=== PATIENT | male | born 1970 | race Caucasian/White ===

== ENCOUNTER 2025-01-17 06:54 | Emergency (ER) | payer MEDICARE, MEDICAID, SELFPAY ==
[2025-01-17 06:56] VITALS: BP 141/32; PULSE 84; RESP 16; TEMP 36.4; O2SAT 98; BMI 22.3
--- NOTE | 2025-01-17 07:05 | RAD_ITS ---
PROCEDURE: ABDOMEN SINGLE VIEW (PORTABLE) 01/17/2025 REASON FOR EXAM: PEG TUB EVAL TECHNIQUE: ABDOMEN SINGLE VIEW (PORTABLE) COMPARISON: None. FINDINGS: Percutaneous gastrostomy tube is in good position with its tip at the level of the gastric body. Contrast was injected through the tube outlining normal gastric rugae without evidence of contrast leakage. Normal visualized lung bases. There is an unremarkable bowel gas pattern. There is no demonstrated free abdominal air. Normal visualized liver. Normal visualized spleen. Normal visualized kidneys. The soft tissue structures of the pelvis are unremarkable. Moderate diffuse spondylosis. RAD/Abdomen Single View (Portable) IMPRESSION: Percutaneous gastrostomy tube is in good position. Reading Location: [facility]
--- NOTE | 2025-01-17 07:09 | EX.ED.DYSGE1 ---
HPI History of Present Illness Chief Complaint: Other, Pain/Inj Narrative Narrative: Patient nonverbal. Sent in for evaluation of PEG tube. Reported patient tugged on the tube there was bleeding. Unclear exactly when this was placed as there is no current records. [facility] Medical History (Updated 01/17/25 @ 07:[address] Elías Hernández DO) Aphasia Constipation Cerebral palsy Hyperactivity Seizure PEG tube malfunction Nonverbal Home Medications ?Medication ?Instructions ?Recorded ?Last Taken ?Type lactose-reduced food-fiber 0.07 250 ml feeding tube 5X/DAY 01/17/25 Unknown History gram-1.5 kcal/mL liquid for tube feed (Isosource 1.5 Kenneth) lactulose 10 gram/15 mL oral 15 ml feeding tube BID 01/17/25 Unknown History solution (Constulose) loratadine 10 mg tablet 10 mg feeding tube DAILY 01/17/25 Unknown History (Allerclear) mirtazapine 15 mg tablet 15 mg feeding tube QHS 01/17/25 Unknown History pantoprazole 40 mg granules 40 mg feeding tube BID 01/17/25 Unknown History delayed-release for susp in packet (Protonix) polyethylene glycol 3350 17 17 g feeding tube DAILY 01/17/25 Unknown History gram/dose oral powder (Miralax) risperidone 3 mg tablet (Risperdal) 3 mg feeding tube QHS 01/17/25 Unknown History valproic acid (as sodium salt) 250 250 mg feeding tube DAILY 01/17/25 Unknown History mg/5 mL (5 mL) oral solution valproic acid (as sodium salt) 500 500 mg feeding tube QHS 01/17/25 Unknown History mg/10 mL (10 mL) oral solution Allergy/AdvReac Type Severity Reaction Status Date / Time No Known Allergies Allergy Verified 01/17/25 06:57 Social History Smoking Status: Unknown if ever smoked ROS ROS ED Review of Systems ROS Unobtainable: other Details: Limited secondary to patient nonverbal EXAM Physical Exam Const Vital Signs: 01/17/25 06:56 Temperature 97.6 F L Temperature Source Temporal Pulse Rate 84 Respiratory Rate 16 Blood Pressure 141/32 H Blood Pressure Mean 68 Pulse Ox 98 Oxygen Delivery Method Room Air Positive cachectic and contractures General Appearance ED: cachectic and contractures Nutritional Appearance: cachectic HEENT normocephalic and atraumatic Eyes General Eye ED: Yes normal appearance of both eyes Resp normal respiratory effort and normal air movement Cardio regular rate and regular rhythm GI GI Narrative: Abdominal binder, removed, PEG tube, stressing, orifice appears fairly fresh wound, dried blood around this, no active bleeding. Neuro Neuro Narrative: Awake, nontoxic Skin Skin Narrative: See above MDM MDM MDM Narrative Medical decision making narrative: Interventions / MDM: Differential diagnosis: PEG tube evaluation Diagnosis considered but do not suspect: Dislodged PEG tube however KUB confirms placement. My EKG interpretation: N/A Imaging independently reviewed and interpreted by myself: KUB: Performed formed with Gastrografin confirms placement External documents reviewed: N/A Test considered but not ordered:N/A ED course: Concerns for bleeding from PEG tube, appears fairly fresh placement with the wound. Patient being nonverbal, KUB with Gastrografin will be ordered to confirm location. 0725: KUB reviewed bedside confirms placement in the stomach. Caregiver bedside. Reports overall place a year ago however was previously pulled needed surgical revision, she cannot tell me when. He is at a alf nonverbal. There is a booklet of medications however no medical conditions that she can tell me specifically. Reports he is PEG tube dependent. I discussed wound care continue dressings. Tube is okay to use. Patient will be discharged back with caregiver. Re-evaluation: stable Disposition discussed with patient/family/significant other: Caregiver Case discussed with consulting clinician: N/A This note was generated with [email or web address][employer]tv dictation software. It may contain incorrect words, spelling, and punctuation that were not noted in checking the note before signing. Discharge Plan Triage Chief Complaint: Other, Pain/Inj ED Provider: Elías Hernández Dx/Rx/DC Orders Clinical Impression: Irritation around percutaneous endoscopic gastrostomy (PEG) tube site, Nonverbal Instructions: Feeding Tube Prescriptions: No Action lactulose [Constulose] 10 gram/15 mL solution 15 ml feeding tube BID loratadine [Allerclear] 10 mg tablet 10 mg feeding tube DAILY mirtazapine 15 mg tablet 15 mg feeding tube QHS pantoprazole [Protonix] [address] for susp in packet 40 mg feeding tube BID polyethylene glycol 3350 [Miralax] 17 gram/dose powder 17 g feeding tube DAILY risperidone [Risperdal] 3 mg tablet 3 mg feeding tube QHS valproic acid (as sodium salt) 500 mg/10 mL (10 mL) solution 500 mg feeding tube QHS valproic acid (as sodium salt) 250 mg/5 mL (5 mL) solution 250 mg feeding tube DAILY Isosource 1.5 Kenneth 0.07 gram-1.5 kcal/mL liquid 250 ml feeding tube 5X/DAY Primary Care Provider: Papi Rodríguez Referrals: Papi Rodríguez DO [Primary Care Provider] - 1-2 Weeks Activity Restrictions/Additional Instructions: Imaging confirms PEG tube in the correct location. Print Language: Bulgarian Disposition Disposition: Home, Self Care
[2025-01-17 07:33] VITALS: BP 110/79; PULSE 92; RESP 17; TEMP 36.4; O2SAT 98
== END 2025-01-17 07:53 | disposition home or self-care (01) ==
LOC: ED 07:52
PROVIDERS: Emergency Provider Emergency Medicine; PCP Family Medicine; Visit Provider Emergency Medicine
DX: K94.29 Other complications of gastrostomy (principal); G80.9 Cerebral palsy, unspecified; Y83.3 Surgical operation with formation of external stoma as the cause of abnormal reaction of the patient, or of later complication, without mention of misadventure at the time of the procedure; R47.01 Aphasia; K59.00 Constipation, unspecified; Z79.899 Other long term (current) drug therapy
CPT/HCPCS: 74018; 99284

== ENCOUNTER 2025-02-07 08:44 | Emergency (ER) | payer MEDICARE, MEDICAID, SELFPAY ==
[2025-02-07 08:46] VITALS: BP 109/77; PULSE 78
[2025-02-07 08:51] VITALS: BP 101/88; PULSE 87; RESP 18; TEMP 36.2; O2SAT 97; BMI 22.7
--- NOTE | 2025-02-07 09:09 | CT_ITS ---
PROCEDURE: ABDOMEN/PELVIS W IV CONT ONLY 02/07/2025 REASON FOR EXAM: N/V, HIGH RESIDUAL FROM TUBE FEED TECHNIQUE: ABDOMEN/PELVIS W IV CONT ONLY Coronal and Sagittal reconstruction series were provided. CONTRAST: Isovue 3 7 VOLUME: 100 mL One or more dose reduction techniques were used (e.g., Automated exposure control, adjustment of the mA and/or kV according to patient size, use of iterative reconstruction technique. RADIATION DOSE SUMMARY: CTDlvol: 13 mGy DLP: 479.83 mGycm COMPARISON: None FINDINGS: Lung bases: Mild dependent atelectasis Liver: Normal size. No mass. Fatty infiltration of the liver. Gallbladder: No evidence of gallstones. The gallbladder is not distended. Spleen: Normal size. Pancreas: Normal size without evidence of mass surrounding inflammation or ductal dilation. Adrenals: Unremarkable Kidneys: Normal renal sizes. No hydronephrosis. Bladder: There is Bowel: A PEG tube is seen within the stomach. Moderate amount of fecal material is seen throughout the colon. Appendix: The appendix is not identified. There is no inflammatory process identified in the right lower quadrant to suggest appendicitis. Lymph nodes: No suspicious lymph node enlargement. Vasculature: The abdominal aorta and IVC are normal. Peritoneum / Retroperitoneum: Unremarkable Bones: Degenerative changes of the spine. CT/Abdomen/Pelvis W IV Cont ONLY IMPRESSION: Fatty infiltration of the liver. Peg tube is seen within the stomach. Distended urinary bladder. Reading Location: [place] [id number]
--- NOTE | 2025-02-07 09:10 | EX.ED.DYSGE1 ---
HPI History of Present Illness Chief Complaint: General Illness Narrative Narrative: Patient is a 54-year-old male with past medical history aphasia, cerebral palsy, seizure, PEG tube, nonverbal who presented to the emergency department via [facility] from [facility] per EMS he has had some nausea vomiting and high residual from PEG tube. Patient is unable to provide history of present illness therefore acute care caveat applies. According to the caregiver at bedside they note that he had no bowel movement from Tuesday to Tuesday gave a laxative and then he had a large bowel movement. They note that starting last night he developed nausea vomiting and had high residuals from his feeding tube today therefore they had him sent here for further evaluation management. [facility] Medical History Aphasia Constipation Cerebral palsy Hyperactivity Seizure PEG tube malfunction Nonverbal Home Medications ?Medication ?Instructions ?Recorded ?Last Taken ?Type lactose-reduced food-fiber 0.07 250 ml feeding tube 5X/DAY 01/17/25 Unknown History gram-1.5 kcal/mL liquid for tube feed (Isosource 1.5 Kenneth) lactulose 10 gram/15 mL oral 15 ml feeding tube BID 01/17/25 Unknown History solution (Constulose) loratadine 10 mg tablet 10 mg feeding tube DAILY 01/17/25 Unknown History (Allerclear) mirtazapine 15 mg tablet 15 mg feeding tube QHS 01/17/25 Unknown History pantoprazole 40 mg granules 40 mg feeding tube BID 01/17/25 Unknown History delayed-release for susp in packet (Protonix) polyethylene glycol 3350 17 17 g feeding tube DAILY 01/17/25 Unknown History gram/dose oral powder (Miralax) risperidone 3 mg tablet (Risperdal) 3 mg feeding tube QHS 01/17/25 Unknown History valproic acid (as sodium salt) 250 250 mg feeding tube DAILY 01/17/25 Unknown History mg/5 mL (5 mL) oral solution valproic acid (as sodium salt) 500 500 mg feeding tube QHS 01/17/25 Unknown History mg/10 mL (10 mL) oral solution ondansetron 4 mg disintegrating 4 mg PO Q6H PRN nausea and 02/07/25 Unknown Rx tablet vomiting #20 tabs Allergy/AdvReac Type Severity Reaction Status Date / Time No Known Allergies Allergy Verified 01/17/25 06:57 Social History Smoking Status: Unknown if ever smoked ROS ROS ED ROS Narrative Review of systems unobtainable from the patient secondary to his aphasia and nonverbal therefore acute care caveat applies EXAM Physical Exam Narrative Exam Narrative: General: Patient was lying in bed rest comfortably did not appear to be in acute distress Head: Atraumatic, normocephalic Eyes: PERRL bilateral, EOMI black no conjunctival injection noted Neck: Soft, supple, trachea midline Cardiovascular: Regular rate rhythm no murmurs gallops rubs noted Respiratory: Clear to auscultation bilaterally no rales rhonchi or wheezes noted Abdomen: Soft, nondistended, PEG tube in place no concern for surrounding infection there was tube feed noted in the feeding tube itself Neurological: Patient at his baseline per staff at bedside Skin: Warm, dry, intact no rashes or lesions noted Const Vital Signs: 02/07/25 08:46 02/07/25 08:51 02/07/25 09:31 Temperature 97.2 F L Temperature Source Axillary Pulse Rate 78 87 Respiratory Rate 18 Respiratory Effort Normal Non-Labored Respiratory Pattern Normal Blood Pressure 109/77 101/88 H Blood Pressure Mean 87 92 Pulse Ox 97 Oxygen Delivery Method Room Air MDM MDM MDM Narrative Medical decision making narrative: Patient is a 54-year-old male who presented to the emergency department with a chief complaint of nausea, vomiting, high residual tube feeds. On the differential diagnosis includes but not limited to ileus, bowel obstruction, PEG tube not in the appropriate position, viral gastroenteritis, constipation. Once workup is obtained reviewed he will be reevaluated Patient's CBC reviewed showed no leukocytosis white blood count 5.8, hemoglobin stable 15.2, plate count was 140. Sodium 141, potassium normal 4.7, creatinine was 0.58. Patient AST and ALT are 22 and 28 respectively. Patient lipase normal at 18. Patient's CT abdomen pelvis IV contrast reviewed and showed fatty infiltration of liver PEG tube is seen within the stomach distended urinary bladder. Patient is moderate mount of fecal material seen throughout the colon. I discussed the results with the patient's caregiver at bedside and they would like to [facility] at this point time. They are encouraged to increase laxative use to encourage bowel movements which is likely leading to his high residuals. They are vies if this does not work they should return to the emergency department or return with any other concerns. All question concerns answered he is discharged home in stable condition. Prescription for Angelic ODT sent to the pharmacy. Lab Data Labs: Laboratory Results - last 24 hr 02/07/25 09:12 WBC 5.8 RBC 4.87 Hgb 15.2 Hct 44.9 MCV 92.2 MCH 31.2 MCHC 33.9 RDW Std Deviation 42.4 RDW Coeff of Eb 12.6 Plt Count 140 L MPV 12.4 H Immature Gran % (Auto) 0.200 Neut % (Auto) 83.8 H Lymph % (Auto) 8.0 L [place] % (Auto) 7.7 Eos % (Auto) 0.0 Baso % (Auto) 0.3 Absolute Neuts (auto) 4.8 Absolute Lymphs (auto) 0.46 L Nucleated RBC % 0 Sodium 141 Potassium 4.7 Chloride 104 Carbon Dioxide 27.1 Anion Gap 10 BUN 24 H Creatinine 0.58 L Estim Creat Clear Calc 102.97 Est GFR (MDRD) Non-Af 116 BUN/Creatinine Ratio 42.4 H Glucose 143 H Calcium 9.3 Total Bilirubin 0.38 AST 22 ALT 28 Alkaline Phosphatase 102 Total Protein 7.0 Albumin 3.8 Globulin 3.2 Albumin/Globulin Ratio 1.2 Lipase 18 Radiography Diagnostic Testing: Clinical Impression(s) from Imaging Studies Abdomen/Pelvis CT 02/07/25 09:09 IMPRESSION: Fatty infiltration of the liver. Peg tube is seen within the stomach. Distended urinary bladder. Reading Location: [facility]- Discharge Plan Triage Chief Complaint: General Illness ED Provider: Aramis Serna Dx/Rx/DC Orders Clinical Impression: Nausea & vomiting, Constipation, History of seizure, Cerebral palsy Prescriptions: New ondansetron 4 mg tablet,disintegrating 4 mg PO Q6H PRN (Reason: nausea and vomiting) Qty: 20 0RF No Action lactulose [Constulose] 10 gram/15 mL solution 15 ml feeding tube BID loratadine [Allerclear] 10 mg tablet 10 mg feeding tube DAILY mirtazapine 15 mg tablet 15 mg feeding tube QHS pantoprazole [Protonix] [address] for susp in packet 40 mg feeding tube BID polyethylene glycol 3350 [Miralax] 17 gram/dose powder 17 g feeding tube DAILY risperidone [Risperdal] 3 mg tablet 3 mg feeding tube QHS valproic acid (as sodium salt) 500 mg/10 mL (10 mL) solution 500 mg feeding tube QHS valproic acid (as sodium salt) 250 mg/5 mL (5 mL) solution 250 mg feeding tube DAILY Isosource 1.5 Kenneth 0.07 gram-1.5 kcal/mL liquid 250 ml feeding tube 5X/DAY Primary Care Provider: Papi Rodríguez Referrals: Papi Rodríguez, [Primary Care Provider] - Activity Restrictions/Additional Instructions: The blood work here today did not show any acute findings and the CT abdomen pelvis showed constipation this is likely leading to his high residuals and it is advised to encourage bowel movements with either MiraLAX or other stool softeners. If he is having adequate bowel movements with high residuals with persistent nausea vomiting return to the emergency department or return with any other concerns. Follow-up with his primary care physician as well. Print Language: Iranian Disposition Disposition: Home, Self Care
[2025-02-07 09:23] LABS: Hematocrit 44.9 % (40-54); Hemoglobin 15.2 g/dL (13.0-16.5); Immature Granulocytes Count 0.010 X10^3/uL (0.0-0.0); Mean Corp Hgb Conc 33.9 g/dL (32-36); Mean Corpuscular Volume 92.2 fL (80-94); Mean Platelet Vol. 12.4 fl (6.2-12.0); NRBC Flagged by Analyzer 0 % (0-5); POSITIVE DIFFERENTIAL YES; Platelet Count 140 K/mm3 (150-450); RBC Distribution Width CV 12.6 % (11.6-14.6); RBC Distribution Width SD 42.4 fl (35.1-43.9); Red Blood Count 4.87 M/mm3 (4.6-6.2); White Blood Count 5.8 K/mm3 (4.4-11.0)
[2025-02-07 09:41] LABS: AST(SGOT) 22 U/L (<=37); Alanine Aminotransfer ALT/SGPT 28 U/L (<=46); Albumin, Serum 3.8 g/dL (3.5-5.0); Alkaline Phosphatase 102 U/L (40-129); Anion Gap 10 (5-15); BUN 24 mg/dL (4-19); BUN/Creat Ratio 42.4 RATIO (10-20); Calcium,Total 9.3 mg/dL (7.6-11.0); Carbon Dioxide 27.1 mmol/L (21.0-32.0); Chloride 104 mmol/L (98-108); Estimated Creatinine Clearance 102.97 ml/min (50-250); Globulin 3.2 g/dL (2.2-4.2); Glucose 143 mg/dL (70-99); Lipase 18 U/L (13-75); Potassium 4.7 mmol/L (3.3-5.1)
[2025-02-07] MEDS: 0.9% Normal Saline (1000mL) 1,000 ML 999 ML IV (09:46)
[2025-02-07 11:16] VITALS: BP 101/56; O2SAT 93
[2025-02-07 11:28] VITALS: BP 101/56; PULSE 87; RESP 18; TEMP 36.6; O2SAT 93
== END 2025-02-07 11:30 | disposition home or self-care (01) ==
PROVIDERS: Emergency Provider Emergency Medicine; PCP Family Medicine; Visit Provider Emergency Medicine
DX: R11.2 Nausea with vomiting, unspecified (principal); Z93.1 Gastrostomy status; G80.9 Cerebral palsy, unspecified; G40.909 Epilepsy, unspecified, not intractable, without status epilepticus; K59.00 Constipation, unspecified; Z79.899 Other long term (current) drug therapy
CPT/HCPCS: 74177; 80053; 83690; 85025; 96361; 96374; 99285; Q9967; A4216; J2405

== ENCOUNTER 2025-06-08 21:51 | Emergency (ER) | payer MEDICARE, MEDICAID, SELFPAY ==
[2025-06-08 21:53] VITALS: BP 113/88; PULSE 75; RESP 16; TEMP 36.4; O2SAT 94; BMI 24.0
--- NOTE | 2025-06-08 22:05 | RAD_ITS ---
PROCEDURE: CHEST 1 VIEW 06/08/2025 REASON FOR EXAM: SOB TECHNIQUE: Frontal view of the chest. COMPARISON: None available. FINDINGS: Hardware: None Heart: The heart size is normal. Lungs: The lungs are clear. No pneumothorax or pleural effusion. Bones: The bones are unremarkable. RAD/Chest 1 View IMPRESSION: No Acute Findings. Reading [facility]
--- NOTE | 2025-06-08 22:11 | EX.ED.DYSGE1 ---
HPI History of Present Illness Chief Complaint: Shortness of Breath Narrative Narrative: Patient is a 54-year-old male presenting to the emergency department for caregivers thinking that he was short of breath and sick today. Patient has a past medical history of aphasia, cerebral palsy, seizures, PEG tube, nonverbal. Patient lives at a nursing home and cover cutter is at bedside. She states that he was more tired today and had a cough and "chest congestion". He has had no vomiting. He has had some diarrhea today. There are no sick contacts in the house that are known of. The PEG tube has been working appropriately and they have been getting feeds through this today. [facility] Medical History Aphasia Constipation Cerebral palsy Hyperactivity Seizure PEG tube malfunction Nonverbal Home Medications Medication Instructions Recorded Last Taken Type lactose-reduced food-fiber 0.07 250 ml feeding tube 5X/DAY 01/17/25 Unknown History gram-1.5 kcal/mL liquid for tube feed (Isosource 1.5 Kenneth) lactulose 10 gram/15 mL oral 15 ml feeding tube BID 01/17/25 Unknown History solution (Constulose) loratadine 10 mg tablet 10 mg feeding tube DAILY 01/17/25 Unknown History (Allerclear) mirtazapine 15 mg tablet 15 mg feeding tube QHS 01/17/25 Unknown History pantoprazole 40 mg granules 40 mg feeding tube BID 01/17/25 Unknown History delayed-release for susp in packet (Protonix) polyethylene glycol 3350 17 17 g feeding tube DAILY 01/17/25 Unknown History gram/dose oral powder (Miralax) risperidone 3 mg tablet (Risperdal) 3 mg feeding tube QHS 01/17/25 Unknown History valproic acid (as sodium salt) 250 250 mg feeding tube DAILY 01/17/25 Unknown History mg/5 mL (5 mL) oral solution valproic acid (as sodium salt) 500 500 mg feeding tube QHS 01/17/25 Unknown History mg/10 mL (10 mL) oral solution ondansetron 4 mg disintegrating 4 mg PO Q6H PRN nausea and 02/07/25 Unknown Rx tablet vomiting #20 tabs polyethylene glycol 3350 17 17 g PO BID #238 grams 02/07/25 Unknown Rx gram/dose oral powder (Miralax) Allergy/AdvReac Type Severity Reaction Status Date / Time No Known Allergies Allergy Verified 06/08/25 21:59 Social History Smoking Status: Unknown if ever smoked ROS ROS ED Review of Systems ROS Unobtainable: due to mental condition EXAM Physical Exam Narrative Exam Narrative: Vital signs: Reviewed General: Lying in bed, no acute distress noted. HEENT: Head is normocephalic and atraumatic, sinuses nontender, pupils equal round and reactive. Nares are patent. Oropharynx and throat exams normal. Neck: Supple without lymphadenopathy nontender Cardiovascular: Regular rate and rhythm, no murmurs. No rubs or gallops. Normal S1 and S2 Respiratory: Clear to auscultation bilaterally. No wheezes, rales, rhonchi Abdominal: Soft and nontender. Normal bowel sounds. No guarding or rebound. Nonsurgical abdomen. PEG tube in place, no surrounding infection. Extremities: No edema, No tenderness. No bruising. Skin: No rash or redness. Neurological: Nonverbal, does not follow commands. Baseline per caregiver. The rest of the physical exam is unremarkable Const Vital Signs: 06/08/25 21:53 06/08/25 21:59 Temperature 97.6 F L Temperature Source Axillary Pulse Rate 75 Respiratory Rate 16 Respiratory Effort Normal Blood Pressure 113/88 H Blood Pressure Mean 96 Pulse Ox 94 Oxygen Delivery Method Room Air MDM MDM MDM Narrative Medical decision making narrative: Patient is a 54-year-old male presenting to the emergency department for caregivers thinking that he was short of breath and sick today. Patient was seen and examined. Vitals are stable. Patient resting in bed comfortably does not appear to be in acute distress. Differential includes but is not limited to: Pneumonia, aspiration, URI. No tachycardia, tachypnea or hypoxia to suggest PE. Will obtain basic blood work, chest x-ray and EKG to determine any underlying cause of the symptoms including pneumonia. CBC with no leukocytosis and a normal hemoglobin. BMP with no significant abnormalities, baseline mild kidney dysfunction. Chest x-ray reviewed myself, no pneumothorax, wide mediastinum or opacities. Radiology read in agreement. EKG shows normal sinus rhythm with no ischemic changes. No dysrhythmia. No prior to compare to. Patient has been saturating well the entire time he has been here. No evidence of vitals. He was reevaluated. Still appears well, nontoxic-appearing. Updated caregiver on negative workup. Recommended supportive care at home. Patient discharged from the Emergency Department. I do not feel that the patient's evaluation reveals any acute reason for admission at this time. I instructed them to either follow-up with their primary care physician or promptly return to the Emergency Department for reevaluation should symptoms worsen or new symptoms develop. I explained what symptoms would indicate the need to return to the emergency department. Shared decision making was used. The patient voiced understanding of the treatment plan and is agreeable with it. Clinical impression URI History & Record Review Discussion w/independent historian: Other (cover cutter) Lab Data Attestation: I reviewed the patient's lab results. Labs: Laboratory Results - last 24 hr 06/08/25 22:23 WBC 5.1 RBC 4.29 L Hgb 13.7 Hct 40.5 MCV 94.4 H MCH 31.9 MCHC 33.8 RDW Std Deviation 43.1 RDW Coeff of Eb 12.5 Plt Count 109 L MPV 12.6 H Immature Gran % (Auto) 0.200 Neut % (Auto) 45.3 L Lymph % (Auto) 36.7 [place] % (Auto) 14.0 H Eos % (Auto) 3.0 Baso % (Auto) 0.8 Absolute Neuts (auto) 2.3 Absolute Lymphs (auto) 1.86 Nucleated RBC % 0 Sodium 140 Potassium 4.3 Chloride 105 Carbon Dioxide 26.7 Anion Gap 9 BUN 21 H Creatinine 0.54 L Estim Creat Clear Calc 110.60 Est GFR (MDRD) Non-Af 118 BUN/Creatinine Ratio 39.4 H Glucose 84 Calcium 8.9 Radiography Chest X-Ray - ED: 2 View, Read by ED Physician, Normal, No Acute Disease and No Infiltrates Diagnostic Testing: Clinical Impression(s) from Imaging Studies Chest X-Ray 06/08/25 22:05 IMPRESSION: No Acute Findings. Reading Location: [facility] Discharge Plan Triage Chief Complaint: Shortness of Breath ED Provider: Brenda Ku Dx/Rx/DC Orders Prescriptions: No Action lactulose [Constulose] 10 gram/15 mL solution 15 ml feeding tube BID loratadine [Allerclear] 10 mg tablet 10 mg feeding tube DAILY mirtazapine 15 mg tablet 15 mg feeding tube QHS pantoprazole [Protonix] [address] for susp in packet 40 mg feeding tube BID polyethylene glycol 3350 [Miralax] 17 gram/dose powder 17 g feeding tube DAILY risperidone [Risperdal] 3 mg tablet 3 mg feeding tube QHS valproic acid (as sodium salt) 500 mg/10 mL (10 mL) solution 500 mg feeding tube QHS valproic acid (as sodium salt) 250 mg/5 mL (5 mL) solution 250 mg feeding tube DAILY Isosource 1.5 Kenneth 0.07 gram-1.5 kcal/mL liquid 250 ml feeding tube 5X/DAY ondansetron 4 mg tablet,disintegrating 4 mg PO Q6H PRN (Reason: nausea and vomiting) Qty: 20 0RF polyethylene glycol 3350 [Miralax] 17 gram/dose powder 17 g PO BID Qty: 238 0RF Primary Care Provider: Papi Rodríguez Referrals: Papi Rodríguez DO [Primary Care Provider, Internal Medicine] Print Language: Dominican
--- OUTSIDE RECORDS SUMMARY | 2025-06-08 22:45 | XMS RPT_ITS | CCD ---
Author Organization [facility] Care Team Providers Care County Manager Name Role Phone No, Physician Unavailable Cruzito Bass Unavailable Unavailable Cruzito Doe Unavailable Unavailable Cruzito Doe Unavailable Unavailable Cruzito Doe Unavailable Unavailable Cruzito Doe Unavailable Unavailable Cruzito Doe Unavailable Unavailable Unavailable Primary Care Provider Cruzito Cortes Primary Care Provider CRUZITO DOE Consulting Unavailable CALIN, DR JESSE Zaidi Attending Unavaila ble CALIN, DR JESSE Zaidi Primary Care Unavaila ble CALIN, DR JESSE Zaidi Admitting Unavaila ble PROVIDER, UNKNOWN Consulting Unavailable PROVIDER, UNKNOWN Consulting Unavailable SILVIA ABAD Attending Unavailable SHAW GREY Referring Unavailable CRUZITO DOE Primary Care Unavailable SILVIA ABAD Attending Unavailable SHAW GREY Referring Unavailable CRUZITO DOE Primary Care Unavailable NEVILLE DOUGLAS Admitting Unavailable DONNA BECKER Attending Unavailable Cruzito Doe Primary Care Provider Dr. Cruzito Doe Attending Unavaila ble Dr. Cruzito Doe Primary Care Unavaila ble May Haines DO Primary Care Provider [phone] May Haines DO Primary Care Provider [phone] MAY HAINES Primary Care Unavailable MAY HAINES Primary Care Unavailable May Haines DO Primary Care Provider [phone] Cruzito Doe MD Primary Care Provider [phone] MARY PADGETT Attending Unavailable NIRAJ GARCIA Unavailable CRUZITO DOE Primary Care Unavailable TARAKJI, HOSSAM Referring Unavailable MUNDO CARD Admitting Unavailab le OBERHAUSER, MAY L Referring Unavailable OBERHAUSER, MAY L Primary Care Unavailable OBERHAUSER, MAY L Referring Unavailable OBERHAUSER, MAY L Primary Care Unavailable THOMAE, BAKARI R Attending Unavailable THOMAE, BAKARI R Referring Unavailable OBERHAUSER, MAY L Primary Care Unavailable THOMAE, BAKARI R Referring Unavailable OBERHAUSER, MAY L Primary Care Unavailable THOMAE, BAKARI R Attending Unavailable THOMAE, BAKARI R Referring Unavailable OBERHAUSER, MAY L Primary Care Unavailable OBERHAUSER, MAY L Primary Care Unavailable TWILA SANTOS Attending Unavailable Cruzito Doe MD Primary Care Provider Suzi Prema BARR Primary Care Provider OBERHAUSER, MAY L Attending Unavailable OBERHAUSER, MAY L Primary Care Unavailable OBERHAUSER, MAY L Attending Unavailable OBERHAUSER, MAY L Primary Care Unavailable OBERHAUSER, MAY L Attending Unavailable OBERHAUSER, MAY L Primary Care Unavailable Suzi Prema BARR Primary Care Provider CRUZITO DOE Primary Care Unavailable ANGIEJI, HOSSAM Attending Unavailable CRUZITO DOE Primary Care Unavailable EROS, HOSSAM Attending Unavailable SUZI, PREMA R. Primary Care Unavailable MISHEL CAMARA Referring Unavailabl e MISHEL CAMARA Attending Unavailabl e COOPERRIDER II, STEPHEN H Attending Unavailabl e COOPERRIDER II, STEPHEN H Referring Unavailabl e SUZI, PREMA Primary Care Unavailable SuziDr. Prema olson DO Primary Care Provider Betty BARR, Dr. Mckinley Emergency Provider Betty BARR, Dr. Mckinley Attending Provider Dr. Aramis Serna DO Emergency Provider Suzi, Prema Primary Care Unavailable Elías Hernández Attending Unavailable Aramis Serna Attending Unavailable Suzi, Prema Primary Care Unavailable Kail[place]kye May BARR Primary Care Provider [phone] SUZI, PREMA R. Attending Unavailable SUZI, PREMA R. Primary Care Unavailable SUZI, PREMA R. Primary Care Unavailable SUZI, PREMA R. Attending Unavailable CRUZITO DOE Primary Care Unavailable NIRAJ GARCIA Attending Unavailable SUZI, PREMA R. Attending Unavailable SUZI, PREMA R. Primary Care Unavailable SUZI, PREMA R. Attending Unavailable SUZI, PREMA R. Primary Care Unavailable SUZI, PREMA R. Attending Unavailable SUZI, PREMA R. Primary Care Unavailable SUZI, PREMA R. Primary Care Unavailable MISHEL CAMARA Attending Unavailabl e SUZI, PREMA R. Primary Care Unavailable SUZI, PREMA R. Attending Unavailable SUZI, PREMA R. Attending Unavailable SUZI, PREMA R. Primary Care Unavailable SUZI, PREMA R. Attending Unavailable SUZI, PREMA R. Primary Care Unavailable SUZI, PREMA R. Attending Unavailable SUZI, PREMA R. Primary Care Unavailable Medications Current Medications Medication Drug Class(es) Dates Sig (Normalized) Sig (Original) acetaminophen 325 mg rectal suppository (20 sources) Start: 11-01-2024 End: 11-01-2024 take 325 mg rectal route every four hours as needed for fever acetaminophen (TYLENOL) 325 MG suppository Insert 1 (one) suppository (325 mg total) into the rectum every 4 (four) hours as needed for fever . 12 suppository 11 11/01/2024 Active Start: 06-21-2024 End: 06-27-2024 take 650 mg rectal route every four hours as needed for pain and headache Start: 06-12-2024 acetaminophen (Tylenol) 325 mg suppository Indications: Spastic quadriplegic cerebral palsy (Multi) GIVE 2 TABLETS (650MG) BY MOUTH EVERY 3 TO 4 HOURS NEEDED FOR DISCOMFORT/TEMP GREATER THAN 103 RECTALLY 100 suppository 06/12/2024 Active End: 06-12-2024 take 325 mg rectal route every four hours as needed acetaminophen (Tylenol) 325 mg suppository Insert 1 suppository (325 mg) into the rectum every 4 hours if needed for fever (temp greater than 38.0 C) or mild pain (1 - 3). 06/12/2024 Discontinued take 2 tablets by [facility] every six hours as needed acetaminophen (TYLENOL) 325 mg tablet Take 650 mg by mouth every 6 hours as needed. Active Comment on above: Take 650 mg by mouth every 6 hours as needed. benoxinate hydrochloride 4 mg/ml / fluorescein sodium 2.5 mg/ml ophthalmic solution (1 source) Diagnostic Dye Start: 10-22-19 End: 10-22-19 fluorescein-benoxinat e 0.25-0.4 % 1 Drop (FLURESS) fluticasone propionate 0.05 mg/actuat metered dose nasal spray (8 sources) Corticosteroid Start: 11-21-19 End: 11-21-19 take 2 spray(s) nasal route once daily fluticasone propionate (FLONASE) 50 mcg/actuation nasal spray Instill 2 (two) sprays into each nostril daily . 16 g 11/20/2024 11/20/2025 Active gastrostomy tube (FEEDING TUBES MISC) (18 sources) gastrostomy tube (FEEDING TUBES MISC) by Miscellaneous route JEVITY 1.5-1 CARTON (250 ML) VIA G-UBE FIVE TIMES DAILY FOR NUTRITIONAL REQUIREMENTS . Active gastrostomy tube (FEEDING TUBES MISC) by Miscellaneous route FLUSH 60 ML OF WATER BEFORE AND AFTER EACH BOLUS FEEDING FOR NUTRITIONAL REQUIREMENTS . Active gastrostomy tube (FEEDING TUBES MISC) by Miscellaneous route FLUSH G-TUBE WITH 20 ML WATER PRE AND POST MEDICATION ADMINISTRATION FOR NUTRITIONAL REQUIREMENTS . Active guaiFENesin 100 mg oral granules (6 sources) guaiFENesin 100 mg grpk Take by mouth. Active Comment on above: Take by mouth. ibuprofen 200 mg oral tablet (20 sources) Nonsteroidal Anti-inflammatory Drug Start: take 2 tablets by mouth every six hours as needed for fever IBU-200 200 mg tablet Indications: Spastic quadriplegic cerebral palsy (Multi) GIVE 2 TABLETS (400MG) BY MOUTH EVERY 6 HOURS NEEDED FOR FEVER *CALL PHARMACY FOR REFILLS* 30 tablet 06/13/2024 2:50 PM EST 06/12/2024 Active End: 06-12-2024 take 1 tablet by mouth every six hours ibuprofen 200 mg tablet Take 1 tablet (200 mg) by mouth every 6 hours. 06/12/2024 Discontinued take 200 mg intragas tric route every six hours as needed for pain ibuprofen (ADVIL,MOTRIN) 100 mg/5 mL suspension 10 mL (200 mg total) by Per G Tube route every 6 (six) hours as needed for pain GIVE 10 ML (200 MG) VIA PEG TUBE EERY 6 HOURS FOR PAIN NEEDED . Active take 2 tablets by mo uth every six hours as needed ibuprofen (MOTRIN) 200 mg tablet Take 400 mg by mouth every 6 hours as needed. Active take 200 mg intragas tric route every six hours as needed for pain Comment on above: Take 400 mg by mouth every 6 hours as needed. Lactose-Reduced Food With Fibr (Isosource 1.5 Devon) 0.07 gram-1.5 kcal/mL liquid (2 sources) Start: 01-17-2025 Lactose-Reduced Food With Fibr (Isosource 1.5 Devon) 0.07 gram-1.5 kcal/mL liquid Active 250 mL feeding tube 5 TIMES DAILY January 17, 2025 12:00am lactulose 667 mg/ml oral solution (20 sources) Osmotic Laxative Start: 01-17-2025 Lactulose (Constulose) 10 gram/15 mL solution Active 15 mL feeding tube TWICE A DAY January 17, 2025 12:00am Start: 08-28-2024 End: 11-28-2024 lactulose (CHRONULAC) 20 gra m/30 mL Soln Indications: Constipation, unspecified constipation type Take 15 mL (10 g total) per G-tube 2 (two) times a day . 900 mL 11 08/28/2024 11/28/2024 Discontinued (Formulary change) Start: 08-28-2024 lactulose (CHR ONULAC) 20 gram/30 mL Soln Indications: Constipation, unspecified constipation type Take 15 mL (10 g total) per G-tube 2 (two) times a day . 900 mL 11 08/28/2024 Active Start: 08-28-2024 End: 08-28-2024 lactulose (CHRONULAC) 20 gra m/30 mL Soln Indications: Constipation, unspecified constipation type Take 15 mL (10 g total) per G-tube 2 (two) times a day . 900 mL 11 08/28/2024 Active Start: 09-18-2020 End: 08-13-2024 take 15 mL by mouth twice daily as needed for constipation lactulose 20 gram/30 mL oral solution Indications: Chronic idiopathic constipation GIVE 15 ML (10GM) BY MOUTH TWICE DAILY PRN FOR CONSTIPATION 900 mL 11 06/14/2024 11:11 AM EST 06/14/2024 08/13/2024 Discontinued lactulose (CHRON ULAC) 10 gram/15 mL solution Indications: constipation 15 mL (10 g total) by Per G Tube route 2 (two) times a day GIVE 15 ML (10 GM) PER PEG TUBE TWICE DAILY Reasons: constipation. Active End: 08-28-2024 lactulose (CHRONULAC) 20 gra m/30 mL Soln Take 15 mL (10 g total) per G-tube 2 (two) times a day . 08/28/2024 Discontinued (Reorder (Suppress CancelRx Message to Pharmacy)) loratadine 10 mg oral tablet (20 sources) Start: 01-17-2025 Loratadine (Al lerclear) 10 mg tablet Active 10 mg feeding tube DAILY January 17, 2025 12:00am Start: 05-08-2024 End: 08-28-2024 loratadine (CLARITIN) 10 mg tablet Indications: Environmental allergies 1 (one) tablet (10 mg total) by Per G Tube route daily Crush tablet and mix with water. . 30 tablet 11 08/28/2024 Active Start: 05-08-2024 Start: 06-01-2023 End: 08-14-2024 take 1 tablet by mouth once daily loratadine (Claritin) 10 mg tablet Indications: Seasonal allergies GIVE 1 TABLET BY MOUTH ONCE DAILY FOR ALLERGIES *OK TO CHARGE UNTIL MEDICAID ISSUE RESOLVED* 30 tablet 2 05/08/2024 08/14/2024 Discontinued End: 06-25-2024 Comment on above: Take 10 mg by mouth once daily. mirtazapine 15 mg oral tablet (20 sources) Start: 03-14-2025 take 1 tablet by mouth once daily mirtazapine (REMERON) 15 MG tablet Take 1 (one) tablet (15 mg total) by mouth nightly . 03/14/2025 Active Start: 01-17-2025 Mirtazapine 15 mg tablet Active 15 mg feeding tube AT BEDTIME January 17, 2025 12:00am Start: 06-01-2023 End: 06-27-2024 End: 11-29-2024 mirtazapine (REMERON) 15 MG tablet 1 (one) tablet (15 mg total) by Per G Tube route nightly . 11/29/2024 Discontinued take 1 tablet by estrellita th once daily at bedtime mirtazapine (REMERON) 30 mg tablet Take 30 mg by mouth daily at bedtime. Active Comment on above: Take 30 mg by mouth daily at bedtime. ondansetron 4 mg disintegrating oral tablet (20 sources) Serotonin-3 Receptor Antagonist Start: 02-08-20 take 1 tablet by mouth every six hours as needed for nausea and vomiting Ondansetron 4 mg tablet,disintegrati ng Active 4 mg PO EVERY 6 HOURS as needed for nausea and vomiting February 07, 2025 12:00am Start: 08-13-2024 take 1 tablet by estrellita th every eight hours as needed ondansetron (ZOFRAN) 4 mg tablet Take 4 mg by mouth three times a day as needed. 08/13/2024 Active Start: 06-18-2024 End: 06-18-2024 4 mg, intravenous, Once, On Tue06/18/24 at 0630, For 1 dose, Preprocedure, When administering via IV Push, administer over 3-5 minutes. take 1 tablet by estrellita th every eight hours as needed for nausea ondansetron (ZOFRAN) 4 MG tablet Take 1 (one) tablet (4 mg total) by mouth every 8 (eight) hours as needed for nausea . Active take 1 tablet intrag astric route every six hours as needed for nausea ondansetron (ZOFRAN) 4 MG tablet 1 (one) tablet (4 mg total) by Per G Tube route every 6 (six) hours as needed for nausea . Active pantoprazole 40 mg oral granules (16 sources) Proton Pump Inhibitor Start: 01-17-2025 Pantoprazole (Protonix) [address] for susp in packet Active 40 mg feeding tube TWICE A DAY January 17, 2025 12:00am Start: 09-20-2024 pantoprazole ( PROTONIX) 40 mg GrPS Indications: Gastroesophageal reflux disease, unspecified whether esophagitis present 1 (one) packet (40 mg total) by Per G Tube route 2 (two) times a day . 60 packet 11 09/20/2024 Active Start: 09-20-2024 pantoprazole ( PROTONIX) 40 mg grps 40 mg by PEG Tube route. 09/20/2024 Active polyethylene glycol 3350 56843 mg powder for oral solution (20 sources) Osmotic Laxative Start: 04-15-2025 polyethylene glycol (MIRALAX) 17 gram powder Indications: Constipation, unspecified constipation type 17 (seventeen) g by Per G Tube route 2 (two) times a day . 255 g 11 04/15/2025 Active Start: 02-12-2025 End: 04-12-2025 polyethylene glycol (MIRALAX ) 17 gram powder Indications: Constipation, unspecified constipation type 17 (seventeen) g by Per G Tube route 2 (two) times a day . 255 g 11 02/12/2025 04/12/2025 Discontinued (Reorder (Suppress CancelRx Message to Pharmacy)) Start: 02-07-2025 Polyethylene G lycol 3350 (Miralax) 17 gram/dose powder Active 17 g PO TWICE A DAY 238 0 February 07, 2025 12:00am Start: 08-28-2024 End: 02-12-2025 polyethylene glycol (MIRALAX ) 17 gram powder Indications: Constipation, unspecified constipation type 17 (seventeen) g by Per G Tube route daily . 255 g 11 08/28/2024 02/12/2025 Discontinued (Reorder (Suppress CancelRx Message to Pharmacy)) Start: 06-01-2023 End: 03-08-2024 Polyethylene Glycol 3350 (Mi ralax) 17 gram/dose powder Active 17 g feeding tube DAILY January 17, 2025 12:00am polyethylene glycol 3350,bul k, gran (6 sources) polyethylene gly col 3350,bulk, gran Active polyethylene gly col 3350,bulk, gran risperiDONE 3 mg oral tablet (20 sources) Atypical Antipsychotic Start: 01-17-2025 Risperi done (Risperdal) 3 mg tablet Active 3 mg feeding tube AT BEDTIME January 17, 2025 12:00am Start: 06-26-2024 End: 06-27-2024 Start: 06-01-2023 take 2 tablets by mo uth once daily risperiDONE (RisperDAL) 1 mg tablet Take 2 tablets (2 mg) by mouth once daily. 06/01/2023 Active risperiDONE (RIS PERDAL) 2 MG tablet 1 (one) tablet (2 mg total) by Per G Tube route daily . Active take 1 tablet by estrellita th twice daily risperiDONE (RISPERDAL) 1 mg tablet Take 1 mg by mouth twice daily. Active Comment on above: Take 1 mg by mouth t wice daily. tropicamide 10 mg/ml ophthalmic solution (1 source) Anticholinergic Start: 10-21-2022 End: 10-21-2022 tropicamide 1 % 1 Drop (MYDRIACYL) valproic acid 50 mg/ml oral solution (20 sources) Mood Stabilizer, Anti-epileptic Agent Start: 01-17-2025 Valproic Acid (As Sodium Salt) 500 mg/10 mL (10 mL) solution Active 500 mg feeding tube AT BEDTIME January 17, 2025 12:00am Start: 01-17-2025 Valproic Acid (As Sodium Salt) 250 mg/5 mL (5 mL) solution Active 250 mg feeding tube DAILY January 17, 2025 12:00am Start: 10-18-2024 valproic acid (DEPAKENE) 250 mg/5 mL syrup 10/18/2024 Active Start: 09-22-2024 valproic acid, as sodium salt, (DEPAKENE) 250 mg/5 mL (5 mL) Soln Indications: epilepsy Give 5 mL (250 mg) per PEG tube in the morning. Give 10 mL (500 mg) per PEG tube at bedtime. Reasons: epilepsy. 450 mL 11 09/22/2024 Active Start: 06-27-2024 End: 06-27-2024 Start: 06-26-2024 End: 06-27-2024 Start: 06-13-2023 End: 06-04-2024 take 1 tablet by mouth once daily in the morning divalproex (Depakote) 250 mg EC tablet Indications: Seizure disorder (Multi) TAKE 1 TABLET BY MOUTH ONCE DAILY IN THE MORNING FOR SEIZURES 90 tablet 2 06/04/2024 Active Start: 06-13-2023 End: 06-04-2024 take 1 tablet by mouth once daily at bedtime divalproex (Depakote) 500 mg EC tablet Indications: Seizure disorder (Multi) GIVE 1 TABLET BY MOUTH DAILY AT BEDTIME DX: SEIZURES NEW PCP 90 tablet 2 06/04/2024 Active valproate (DEPAK MOISE) 250 mg/5 mL syrup 10 mL (500 mg total) by Per G Tube route nightly GIVE 10 ML PER PEG TUB AT BEDTIME . Active End: 09-21-2024 take 5 mL by mouth every eight hours, then take 5 mL by mouth once in the morning, then take 10 mL by mouth once at bedtime valproic acid, as sodium salt, (DEPAKENE) 250 mg/5 mL (5 mL) Soln Indications: epilepsy Take 5 mL (250 mg total) by mouth every 8 (eight) hours Give 5 mL (250 mg) per PEG tube in the morning. Give 10 mL (500 mg) per PEG tube at bedtime. Reasons: epilepsy. 09/21/2024 Discontinued (Reorder (Suppress CancelRx Message to Pharmacy)) End: 09-18-2024 divalproex (DEPAKOTE SPRINKL E) 125 mg delayed release (DR) capsule 4 (four) capsules (500 mg total) by Other route at bedtime Per G tube . 09/18/2024 Discontinued End: 09-18-2024 divalproex (DEPAKOTE SPRINKL E) 125 mg delayed release (DR) capsule 2 (two) capsules (250 mg total) by Other route daily Per G Tube . 09/18/2024 Discontinued DIVALPROEX SODIU M (DIVALPROEX ORAL) Take by mouth. Active DIVALPROEX SODIU M (DIVALPROEX ORAL) Take by mouth. 0 Active Comment on above: Take by mouth. Completed/Discontinued Medications Medication Drug Class(es) Dates Sig (Normalized) Sig (Original) albuterol 0.83 mg/ml inhalation solution (1 source) beta2-Adrenergic Agonist Start: 06-20-2024 End: 06-20-2024 Start: 06-20-2024 End: 06-20-2024 aluminum hydroxide 40 mg/ml / magnesium hydroxide 40 mg/ml / simethicone 4 mg/ml oral suspension (1 source) Start: 06-20-2024 End: 06-27-2024 take 30 mL by mouth every four hours as needed barium sulfate (VARIBAR HONEY) 40 % (w/v) 29% (w/w) oral solution 1 Dose (1 source) Start: 11-20-2018 End: 11-20-2018 barium sulfate (VARIBAR HONEY) 40 % (w/v) 29% (w/w) oral solution 1 Dose barium sulfate (Varibar Honey) 40 %(w/v), 29% (w/w)(1500 CPS) suspension 15 mL (2 sources) Start: 03-30-2024 End: 03-30-2024 take 15 mL by mouth once 15 mL, oral, Once in imaging, Starting on Tue03/30/24 at 0902, For 1 dose barium sulfate (VARIBAR NECTAR) 40 % (w/v) oral suspension 1 Dose (1 source) Start: 11-20-2018 End: 11-20-2018 barium sulfate (VARIBAR NECTAR) 40 % (w/v) oral suspension 1 Dose barium sulfate (Varibar Lattimore) 40 % (w/v) suspension 10 mL (2 sources) Start: 03-30-2024 End: 03-30-2024 take 10 mL by mouth once 10 mL, oral, Once in imaging, Starting on Tue03/30/24 at 0902, For 1 dose barium sulfate (VARIBAR PUDDING) 40 % (w/v), 30% (w/w) oral paste 1 Dose (1 source) Start: 11-20-2018 End: 11-20-2018 barium sulfate (VARIBAR PUDDING) 40 % (w/v), 30% (w/w) oral paste 1 Dose barium sulfate (Varibar Pudding) 40 % (w/v), 30% (w/w) oral paste 5 mL (2 sources) Start: 03-30-2024 End: 03-30-2024 5 mL, oral, Once in imaging, Starting on Tue03/30/24 at 0901, For 1 dose, Administer with oral syringe or spoon. Max cumulative dose of 30 mL. Discard any unused product 21 days after tube opened. barium sulfate (VARIBAR THIN LIQUID) 40 % (w/v) solution 1 Dose (1 source) Start: 11-20-2018 End: 11-20-2018 barium sulfate (VARIBAR THIN LIQUID) 40 % (w/v) solution 1 Dose barium sulfate (Varibar THIN Liquid) 81 % (w/w) suspension 10 mL (2 sources) Start: 03-30-2024 End: 03-30-2024 take 10 mL by mouth once 10 mL, oral, Once in imaging, Starting on Tue03/30/24 at 0903, For 1 dose betamethasone 0.5 mg/ml / clotrimazole 10 mg/ml topical lotion (4 sources) Azole Antifungal, Corticosteroid Start: 06-13-2024 End: 07-14-2024 clotrimazole-beta methasone (Lotrisone) lotion Indications: Rash Apply 1 Application topically 2 times a day for 28 days. 30 mL 1 06/14/2024 9:57 AM EST 06/13/2024 07/14/2024 bisacodyl 10 mg rectal suppository (20 sources) Stimulant Laxative Start: 06-20-2024 End: 06-27-2024 End: 08-13-2024 take 30 mL rectal route once bisacodyl (Fleet Bisacody l) 10 mg/30 mL enema Insert 30 mL (10 mg) into the rectum 1 time. 08/13/2024 Discontinued bisacodyL (FLEET ) 10 mg/30 mL Enem Insert 30 mL (10 mg total) into the rectum daily as needed (constipation) INSERT 1 ENEMA RECTALLY EVERY 24 HOURS NEEDED FOR CONSTIPATION . Active Comment on above: 10 mg by RECTAL rout e once daily as needed. calcium chloride 0.0014 meq/ml / potassium chloride 0.004 meq/ml / sodium chloride 0.103 meq/ml / sodium lactate 0.028 meq/ml injectable solution (2 sources) Start: 2023 End: 2023 take 20 mL intravenously every hour 20 mL/hr, intravenous, Continuous, Starting on Tue06/18/24 at 0630, For 1 day ceFAZolin 1000 mg injection (2 sources) Cephalosporin Antibacterial Start: 2023 End: 2023 1 g, intravenous, at 100 mL/hr, Administer over 30 Minutes, Once, On Tue06/18/24 at 0745, For 1 dose, premix bag, Dosing of this medication varies based on severity of illness. Does this patient have sepsis or concern for sepsis (probable or documented infection plus systemic manifestations of infection)? No, Suspected Indication (Select all that apply): Surgical Prophylaxis, Indications: Surgical Prophylaxis cyclopentolate hydrochloride 10 mg/ml ophthalmic solution (1 source) Start: 2023 End: 2023 cyclopentolate 1 % 1 Drop (CYCLOGYL) diatrizoate oriana-diatrizoat sod (Gastrografin 37% organic bound iodine) solution 30 mL (1 source) Start: 2023 End: 2023 30 mL, g-tube, Once, On Tue06/19/24 at 2215, For 1 dose 0.4 ml enoxaparin sodium 100 mg/ml prefilled syringe (1 source) Low Molecular Weight Heparin Start: 2023 End: 2023 2 ml famotidine 10 mg/ml injection (2 sources) Histamine-2 Receptor Antagonist Start: 2023 End: 2023 20 mg, intravenous, Administer over 2 Minutes, Once, On Tue06/18/24 at 0630, For 1 dose, Preprocedure 200 ml fluconazole 2 mg/ml injection (1 source) Azole Antifungal Start: 2023 End: 2023 take 400 mg intravenously every twenty-four hours 150 ml glucose 50 mg/ml injection (1 source) Start: 2023 End: 2023 Haloperidol (2 sources) Typical Antipsychotic Start: 2023 End: 2023 take 0.5 mg intravenously every twelve hours as needed Start: 06-20-2024 End: 06-26-2024 0.5 ml HYDROmorphone hydroch loride 1 mg/ml prefilled syringe (3 sources) Opioid Agonist Start: 06-21-2024 End: 06-21-2024 Start: 06-18-2024 End: 06-19-2024 0.5 mg, intravenous, Every 5 min PRN, pain severe (7-10), first line, Starting on Tue06/18/24 at 0826, Recovery (only), Max total of 4 mg regardless of dose. Start: 06-18-2024 0.5 mg, intrav enous, Every 5 min PRN, pain severe (7-10), first line, Starting on Tue06/18/24 at 0826, Recovery (only), Max total of 4 mg regardless of dose. 10 ml lidocaine hydrochloride 10 mg/ml injection (1 source) Antiarrhythmic, Amide Local Anesthetic Start: 06-20-2024 End: 06-27-2024 take 1 mL intradermal route every twenty-four hours as needed magnesium hydroxide 80 mg/ml oral suspension (1 source) Start: 06-20-2024 End: 06-27-2024 50 ml magnesium sulfate 40 mg/ml injection (2 sources) Start: 06-23-2024 End: 06-23-2024 Start: 06-20-2024 End: 06-20-2024 melatonin 5 mg oral tablet (1 source) Start: 06-20-2024 End: 06-27-2024 5 ml midazolam 1 mg/ml injection (2 sources) Benzodiazepine Start: 06-18-2024 End: 06-18-2024 1 mg, intravenous, Once, On 06/18/24 at 0630, For 1 dose, Preprocedure 1 ml morphine sulfate 2 mg/ml cartridge (1 source) Opioid Agonist Start: 06-21-2024 End: 06-27-2024 take 2 mg intravenously every four hours as needed nystatin [id number] unt/ml topical cream (4 sources) Polyene Antifungal Start: 06-13-2024 End: 07-14-2024 nystatin (Mycostatin) cream Indications: Rash Apply topically 2 times a day for 7 days. apply to affected area 30 g 06/14/2024 9:57 AM EST 06/13/2024 07/14/2024 omeprazole 20 mg delayed release oral tablet (7 sources) Proton Pump Inhibitor Start: 08-28-2024 End: 08-29-2024 omeprazole (PRILOSEC OTC) 20 MG tablet Indications: Gastroesophageal reflux disease, unspecified whether esophagitis present 2 (two) tablets (40 mg total) by Per G Tube route daily Crush tablets and mix with water. . 60 tablet 11 08/28/2024 08/29/2024 Discontinued (Reorder (Suppress CancelRx Message to Pharmacy)) Start: 06-27-2024 End: 08-28-2024 omeprazole (PRILOSEC) 40 MG capsule 1 (one) capsule (40 mg total) by Other route 2 (two) times a day . 60 capsule 06/27/2024 08/28/2024 Discontinued piperacillin 3000 mg / tazobactam 375 mg injection (2 sources) Penicillin-class Antibacterial, beta Lactamase Inhibitor Start: 06-20-2024 End: 06-27-2024 take 3.375 g intravenously every eight hours Start: 06-20-2024 End: 06-20-2024 100 ml potassium chloride 0. 2 meq/ml injection (7 sources) Start: 06-27-2024 End: 06-27-2024 Start: 06-23-2024 End: 06-24-2024 Start: 06-20-2024 End: 06-20-2024 sennosides, intermediate 8.6 mg oral tablet (1 source) Start: 06-20-2024 End: 06-27-2024 1000 ml sodium chloride 9 mg /ml injection (5 sources) Start: 06-23-2024 End: 06-23-2024 Start: 06-20-2024 End: 06-27-2024 Start: 06-20-2024 End: 06-21-2024 traZODone hydrochloride 50 mg oral tablet (1 source) Serotonin Reuptake Inhibitor Start: 06-20-2024 End: 06-27-2024 250 ml vancomycin 5 mg/ml injection (1 source) Glycopeptide Antibacterial Start: 06-20-2024 End: 06-20-2024 take 1250 mg intravenously every twelve hours (11 sources) Start: 06-25-2024 End: 06-26-2024 Start: 06-24-2024 End: 06-25-2024 Start: 06-23-2024 End: 06-24-2024 Start: 06-22-2024 End: 06-23-2024 Start: 06-21-2024 End: 06-22-2024 Start: 06-21-2024 End: 06-27-2024 [Order 1 Start] Name: naloxo ne (NARCAN) injection 0.1 mg Signed Summary: 0.1 mg, Intravenous, As needed, opioid reversal, For respiratory rate less than or equal to 8 per minute., Starting on Tue06/21/24 at 0434, Mix nalOXone (NARCAN) 0.4 mg (1mL) with 9 mL of Normal Saline to total 10 mL. Administer 0.1 mg (2.5mL) IV Push every 2 minutes until respiratory rate is 10 or greater. [Order 1 End] [Order 2 Start] Name: Notify physician Signed Summary: STAT, Until discontinued, Starting on Sandrine 06/21/24 at 0435, Until Specified, Respiratory rate less than: 8, For respiratory rate less than or equal to 8, notify physician and/or appropriate staff for additional orders. [Order 2 End] [Order 3 Start] Name: naloxone (NARCAN) injection 0.4 mg Signed Summary: 0.4 mg, Intravenous, As needed, opioid reversal, patient is pulseless, breathless, and unresponsive, Starting on Sandrine 06/21/24 at 0434, Call a code first, then administer naloxone dose undiluted IV Push over 30 seconds. [Order 3 End] Start: 06-20-2024 End: 06-26-2024 take 190 mg intravenously every six hours Start: 06-20-2024 End: 06-27-2024 Start: 06-20-2024 End: 06-27-2024 Start: 06-20-2024 End: 06-27-2024 take 4 mg by mouth every six hours as needed for nausea and vomiting [Order 1 Start] Name: ondansetron (ZOFRAN-ODT) disintegrating tablet 4 mg Signed Summary: 4 mg, Oral, Every 6 hours PRN, nausea, vomiting, Starting on 06/20/24 at 1021, Use oral route first, if tolerated. Formulation requires tablet remain in sealed package until immediately prior to dose being administered. [Order 1 End] [Order 2 Start] Name: ondansetron (ZOFRAN) injection 4 mg Signed Summary: 4 mg, Intravenous, Every 6 hours PRN, nausea, vomiting, Starting on Tue06/20/24 at 1021, Use oral route first, if tolerated. [Order 2 End] Start: 06-20-2024 End: 06-27-2024 [Order 1 Start] Name: Saline lock IV Signed Summary: Routine, Continuous, Starting on Tue06/20/24 at 1019, Until Specified [Order 1 End] [Order 2 Start] Name: sodium chloride (PF) (NS) flush 5 mL Signed Summary: 5 mL, Intravenous, As needed, line care, Starting on Tue06/20/24 at 1018 [Order 2 End] [Order 3 Start] Name: sodium chloride (PF) (NS) flush 5 mL Signed Summary: 5 mL, Intravenous, Every 8 hours scheduled, First dose on Tue06/20/24 at 1400, Saline lock [Order 3 End] [Order 4 Start] Name: sodium chloride 0.9% (NS) Signed Summary: 0-150 mL/hr, Intravenous, As needed, To flush line after IV infusions when no maintenance IV ordered or a compatibility issue. Infuse 20ml at the same rate as the secondary infusion, Starting on Tue06/20/24 at 1018, Run as Primary IV. NOT intended for KVO. [Order 4 End] (2 sources) Start: 06-25-2024 End: 06-25-2024 Start: 06-20-2024 End: 06-20-2024 (2 sources) Start: 06-22-2024 End: 06-22-2024 Start: 06-20-2024 End: 06-21-2024 Problems Active Problems Problem Classification Problem Date Documented Da te Episodic/Chronic Complications of surgical procedures or medical care (8 sources) Complication of gastrostomy; Translations: [Gastrostomy complication, unspecified] Onset: 5 08-24-2024 Episodic Developmental disorders (20 sources) Unspecified intellectual disabilities; Translations: [Profound intellectual disability] Onset: 3 06-20-2023 Chronic E Codes: Adverse effects of medical care (5 sources) Medical accidents to patients during surgical and medical care; Translations: [Failure to introduce or to remove other tube or instrument] Onset: 4 06-20-2024 Episodic Epilepsy; convulsions (20 sources) Seizure disorder; Translations: [Epilepsy, unspecified, not intractable, without status epilepticus] Onset: 3 Resolved: 5 06-20-2023 Chronic Esophageal disorders (19 sources) Gastroesophageal reflux disease; Translations: [Gastro-esophageal reflux disease without esophagitis] Onset: 5 08-28-2024 Chronic Immunizations and screening for infectious disease (3 sources) Encounter for screening for respiratory tuberculosis; Translations: [Tuberculosis screening status] Onset: 4 Episodic Nausea and vomiting (4 sources) Nausea with vomiting, unspecified; Translations: [Nausea and vomiting] Onset: 4 Episodic Other ear and sense organ disorders (5 sources) Hearing loss of right ear; Translations: [Impacted cerumen, right ear] Onset: 5 01-23-2025 Episodic Other eye disorders (1 source) Bilateral vitreous floaters; Translations: [Other vitreous opacities, bilateral] 11-07-2024 Chronic Other eye disorders (1 source) Other vitreous opacities, bilateral; Translations: [Vitreous floaters of both eyes] Onset: 5 Chronic Other eye disorders (3 sources) Alternating exotropia; 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] Episodic Other eye disorders (1 source) Alternating exotropia; 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] Onset: 5 Episodic Other gastrointestinal disorders (2 sources) Gastrostomy status; Translations: [Gastrostomy status] Onset: 4 Chronic Other gastrointestinal disorders (3 sources) Encounter for attention to gastrostomy; Translations: [Encounter for attention to gastrostomy] Onset: 4 Chronic Other gastrointestinal disorders (4 sources) Dysphagia; Translations: [Dysphagia, unspecified] 03-05-2024 Episodic Other gastrointestinal disorders (1 source) Esophageal dysphagia; Translations: [Other dysphagia] 12-16-2023 Episodic Other gastrointestinal disorders (20 sources) Oropharyngeal dysphagia; Translations: [Dysphagia, oropharyngeal phase] Onset: 4 03-30-2024 Episodic Other gastrointestinal disorders (20 sources) Constipation; Translations: [Constipation, unspecified] Onset: 5 08-28-2024 Episodic Other gastrointestinal disorders (2 sources) Constipation, unspecified; Translations: [Constipation, unspecified] Onset: 5 Episodic Other lower respiratory disease (3 sources) Cough; Translations: [Acute cough] 12-16-2023 Episodic Other nervous system disorders (2 sources) Does not speak; Translations: [Aphasia] 01-17-2025 Chronic Other screening for suspected conditions (not mental disorders or infectious disease) (6 sources) Patient encounter status; Translations: [Encounter for screening for other suspected endocrine disorder] Onset: 4 06-20-2023 Episodic Other skin disorders (1 source) Eruption; Translations: [Rash and other nonspecific skin eruption] 06-13-2024 Episodic Paralysis (20 sources) Cerebral palsy, unspecified; Translations: [Cerebral palsy] Onset: 3 06-20-2023 Chronic Residual codes; unclassified (1 source) Personal history of other specified conditions; Translations: [History of seizure] 02-07-2025 Episodic Unclassified (2 sources) ENCOUNTER FOR SCREENING FOR COVID-19; Translations: [ENCOUNTER FOR SCREENING FOR COVID-19] Onset: 1 Unclassified (3 sources) Cough, unspecified; Translations: [Cough, unspecified] Onset: 3 Unclassified (2 sources) Acute cough; Translations: [Acute cough] Onset: 4 Unclassified (2 sources) Annual Exam; Translations: [Annual Exam] Onset: 4 Unclassified (2 sources) [place] [facility] Onset: 5 Past or Other Problems Problem Classification Problem Date Documented Da te Episodic/Chronic Allergic reactions (4 sources) Environmental allergy; Translations: [Other allergy status, other than to drugs and biological substances] Onset: 08-28-2024 08-28-2024 Episodic Blindness and vision defects (20 sources) Severe myopia; Translations: [Myopia, bilateral] Onset: 05-29-2014 Episodic Disorders of teeth and jaw (15 sources) Periodontal disease; Translations: [Periodontal disease, unspecified] Onset: 12-10-2020 08-28-2024 Episodic Epilepsy; convulsions (2 sources) Unspecified convulsions; Translations: [Unspecified convulsions] Onset: 06-20-2024 Episodic Other ear and sense organ disorders (2 sources) Impacted cerumen, right ear; Translations: [Impacted cerumen, right ear] Onset: 01-23-2025 Episodic Other eye disorders (4 sources) Alternating esotropia; 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] Onset: 05-29-2014 Resolved: 09-30-2020 09-30-2020 Episodic Other gastrointestinal disorders (5 sources) Dysphagia, oropharyngeal phase; Translations: [Dysphagia, oropharyngeal phase] Onset: 02-18-2023 Episodic Other gastrointestinal disorders (5 sources) Dysphagia, unspecified; Translations: [Dysphagia, unspecified] Onset: 02-18-2023 Episodic Other gastrointestinal disorders (2 sources) Other dysphagia; Translations: [Other dysphagia] Onset: 12-16-2023 Episodic Other injuries and conditions due to external causes (2 sources) Pulmonary aspiration ; Translations: [Unspecified foreign body in respiratory tract, part unspecified causing asphyxiation, initial encounter] 03-30-2024 Episodic Other injuries and conditions due to external causes (2 sources) Unspecified foreign body in respiratory tract, part unspecified causing asphyxiation, initial encounter; Translations: [Unspecified foreign body in respiratory tract, part unspecified causing asphyxiation, initial encounter] Onset: 03-30-2024 Episodic Other skin disorders (2 sources) Rash and other nonspecific skin eruption; Translations: [Rash and other nonspecific skin eruption] Onset: 06-13-2024 Episodic Retinal detachments; defects; vascular occlusion; and retinopathy (20 sources) Bilateral 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; Translations: [Multiple defects of retina without detachment, bilateral] Onset: 06-01-2016 Episodic Septicemia (except in labor) (20 sources) Sepsis; Translations: [Sepsis, unspecified organism] Onset: 06-20-2024 06-20-2024 Episodic Unclassified (1 source) ENCOUNTER FOR SCREENING FOR COVID-19; Translations: [ENCOUNTER FOR SCREENING FOR COVID-19] Onset: 04-06-2021 Unclassified (12 sources) Onset: 06-20-2023 06-20-2023 Unclassified (2 sources) Acute cough; Translations: [Acute cough] Onset: 12-16-2023 Unclassified (2 sources) Cough, unspecified; Translations: [Cough, unspecified] Onset: 11-19-2024 Results Test Name Value Interpretation Reference Range Facility CBC (INCLUDES DIFF/PLT)on Basophils (Bld) [#/Vol] 0.042 10*3/uL Normal 0-200 [facility] Comment on above: Performed By: #### 9 16, [id number], 9571 #### [facility] [address], [address] [place] [id number] Development Geologist: Brian Wolff MD Basophils/100 WBC (Bld) 0.9 % Normal [facility] Comment on above: Performed By: #### 9 22, 80306, 2404 #### [facility] [address], [address] [place] [id number] Development Geologist: Brian Wolff MD Eosinophils (Bld) [#/Vol] 0.08 10*3/uL Normal 15-500 [facility] Comment on above: Performed By: #### 9 16, 70093, 6399 #### [facility] [place] [address] Development Geologist: Brian Wolff MD Eosinophils/100 WBC (Bld) 1.7 % Normal [facility] Comment on above: Performed By: #### 9 16, 27885, 6399 #### [facility] [place] [address] Development Geologist: Brian Wolff MD Erythrocyte distribution width (RBC) [Ratio] 13.0 % Normal 11.0-15.0 [facility] Comment on above: Performed By: #### 9 16, 48075, 5599 #### [facility] [place] [address] Development Geologist: Brian Wolff MD Hematocrit (Bld) [Volume fraction] 42.9 % Normal 38.5-50.0 [facility] Comment on above: Performed By: #### 9 16, 21031, 9699 #### [facility] [place] [address] Development Geologist: Brian Wolff MD Hemoglobin (Bld) [Mass/Vol] 14.2 g/dL Normal 13.2-17.1 [facility] Comment on above: Performed By: #### 9 16, 09045, 6177 #### [facility] [place] [address] Development Geologist: Brian Wolff MD Lymphocytes (Bld) [#/Vol] 1.612 10*3/uL Normal 850-390 0 [facility] Comment on above: Performed By: #### 9 16, 85822, 5299 #### [facility] [place] [address] Development Geologist: Brian Wolff MD Lymphocytes/100 WBC (Bld) 34.3 % Normal [facility] Comment on above: Performed By: #### 9 16, 57319, 6399 #### [facility] of [address], [address] [place] [address] Development Geologist: Brian Wolff MD MCH (RBC) [Entitic mass] 32.0 pg Normal 27.0-33.0 [facility] Comment on above: Performed By: #### 9 , 39599, 9384 #### [facility] [place] [address] Development Geologist: Brian Wolff MD MCHC (RBC) [Mass/Vol] 33.1 g/dL Normal 32.0-36.[address] [facility] Comment on above: Result Comment: For adults, a slight decrease in the calculated MCHC value (in the range of 30 to 32 g/dL) is most likely not clinically significant; however, it should be interpreted with caution in correlation with other red cell parameters and the patient's clinical condition. Performed By: #### 9 , 42665, 4980 #### [facility] [place] [address] Development Geologist: Brian Wolff MD MCV (RBC) [Entitic vol] 96.6 fL Normal 80.0-100.0 [facility] Comment on above: Performed By: #### 9 , 83047, 9833 #### [facility] [place] [address] Development Geologist: Brian Wolff MD Monocytes (Bld) [#/Vol] 0.385 10*3/uL Normal 200-950 [facility] Comment on above: Performed By: #### 9 , 32068, 9222 #### [facility] [place] [address] Development Geologist: Brian Wolff MD Monocytes/100 WBC (Bld) 8.2 % Normal [facility] Comment on above: Performed By: #### 9 , 63624, 6721 #### [facility] [place] [address] Development Geologist: Brian Wolff MD Neutrophils (Bld) [#/Vol] 2.58 10*3/uL Normal 1500-780 0 [facility] Comment on above: Performed By: #### 9 16, 25382, 7499 #### [facility] of [address], [address] [place] [address] Development Geologist: Brian Wolff MD Neutrophils/100 WBC (Bld) 54.9 % Normal [facility] Comment on above: Performed By: #### 9 16, , 6399 #### [facility] of [address], [address] [place] [address] Development Geologist: Brian Wolff MD Platelet mean volume (Bld) [Entitic vol] 13.1 fL High 7.5-12.5 [facility] Comment on above: Performed By: #### 9 16, 36922, 10 #### [facility] of [address], [address] [place] [address] Development Geologist: Brian Wolff MD Platelets (Bld) [#/Vol] 143 10*3/uL Normal 140-400 [facility] Comment on above: Performed By: #### 9 16, 33862, 0299 #### [facility] [place] [address] Development Geologist: Brian Wolff MD RBC (Bld) [#/Vol] 4.44 10*6/uL Normal 4.20-5.80 [facility] Comment on above: Performed By: #### 9 16, 88168, 0599 #### [facility] of [address], [address] [place] [address] Development Geologist: Brian Wolff MD WBC (Bld) [#/Vol] 4.7 10*3/uL Normal 3.8-10.8 [facility] Comment on above: Performed By: #### 9 , 89112, 9099 #### [facility] [place] [address] Development Geologist: Brian Wolff MD COMPREHENSIVE METABOLIC PANE L W/ANION GAPon 05-01-2025 Albumin [Mass/Vol] 4.0 g/dL Normal 3.6-5.1 [facility] Comment on above: Order Comment: FASTI NG:NO FASTING: NO Performed By: #### 9 16, 37162, 9932 #### [facility] [place] [address] Development Geologist: Brian Wolff MD ALP [Catalytic activity/Vol] 97 U/L Normal 35-144 [facility] Comment on above: Order Comment: FASTI NG:NO FASTING: NO Performed By: #### 9 16, 66273, 6350 #### [facility] [place] [address] Development Geologist: Brian Wolff MD ALT [Catalytic activity/Vol] 43 U/L Normal 9-46 [facility] Comment on above: Order Comment: FASTI NG:NO FASTING: NO Performed By: #### 9 16, 99215, 5238 #### [facility] [place] [address] Development Geologist: Brian Wolff MD AST [Catalytic activity/Vol] 25 U/L Normal 10-35 [facility] Comment on above: Order Comment: FASTI NG:NO FASTING: NO Performed By: #### 9 16, 37856, 6026 #### [facility] [place] [address] Development Geologist: Brian Wolff MD Bilirubin [Mass/Vol] 0.5 mg/dL Normal 0.2-1.2 [facility] Comment on above: Order Comment: FASTI NG:NO FASTING: NO Performed By: #### 9 16, 33622, 2946 #### [facility] [place] [address] Development Geologist: Brian Wolff MD Calcium [Mass/Vol] 8.9 mg/dL Normal 8.6-10.3 [facility] Comment on above: Order Comment: FASTI NG:NO FASTING: NO Performed By: #### 9 16, 98459, 6399 #### [facility] [address], [address] [place] [address] Development Geologist: Brian Wolff MD Chloride [Moles/Vol] 105 mmol/L Normal 98-110 [facility] Comment on above: Order Comment: FASTI NG:NO FASTING: NO Performed By: #### 9 16, 57072, 6399 #### [facility] [address], [address] [place] [address] Development Geologist: Brian Wolff MD CO2 [Moles/Vol] 27 mmol/L Normal 20-32 [facility] Comment on above: Order Comment: FASTI NG:NO FASTING: NO Performed By: #### 9 16, 41634, 1899 #### [facility] [address], [address] [place] [address] Development Geologist: Brian Wolff MD Creatinine [Mass/Vol] 0.45 mg/dL Low 0.70-1.[address] [facility] Comment on above: Order Comment: FASTI NG:NO FASTING: NO Performed By: #### 9 16, 61566, 6399 #### [facility] [place] [address] Development Geologist: Brian Wolff MD ELECTROLYTE BALANCE 7 mmol/L (calc) Normal 7-17 [facility] Comment on above: Order Comment: FASTI NG:NO FASTING: NO Performed By: #### 9 16, 55364, 7499 #### [facility] [address], [address] [place] [address] Development Geologist: Brian Wolff MD GFR/1.73 sq M.predicted among non-blacks MDRD (S/P/Bld) [Vol rate/Area] 125 mL/min/{1.73_m2} Normal > OR = 60 [facility] Comment on above: Order Comment: FASTI NG:NO FASTING: NO Performed By: #### 9 16, 71578, 9099 #### [facility] [place] [address] Development Geologist: Brian Wolff MD Glucose [Mass/Vol] 86 mg/dL Normal 65-139 [facility] Comment on above: Order Comment: FASTI NG:NO FASTING: NO Result Comment: Non-fasting reference interval Performed By: #### 9 16, 68423, 6399 #### [facility] [place] [address] Development Geologist: Brian Wolff MD Potassium [Moles/Vol] 4.4 mmol/L Normal 3.5-5.3 [facility] Comment on above: Order Comment: FASTI NG:NO FASTING: NO Performed By: #### 9 16, 49995, 6399 #### [facility] [place] [address] Development Geologist: Brian Wolff MD Protein [Mass/Vol] 6.7 g/dL Normal 6.1-8.1 [facility] Comment on above: Order Comment: FASTI NG:NO FASTING: NO Performed By: #### 9 16, 46510, 6399 #### [facility] [place] [address] Development Geologist: Brian Wolff MD Sodium [Moles/Vol] 139 mmol/L Normal 135-146 [facility] Comment on above: Order Comment: FASTI NG:NO FASTING: NO Performed By: #### 9 16, 58829, 6699 #### [facility] [place] [address] Development Geologist: Brian Wolff MD Urea nitrogen [Mass/Vol] 18 mg/dL Normal 7-25 [facility] Comment on above: Order Comment: FASTI NG:NO FASTING: NO Performed By: #### 9 16, 71882, 6399 #### [facility] [place] [address] Development Geologist: Brian Wolff MD PSA, TOTALon 05-01-2025 PSA, TOTAL 0.44 ng/mL Normal < OR = 4.00 [facility] Comment on above: Result Comment: The total PSA value from this assay system is standardized against the WHO standard. The test result will be approximately 20% lower when compared to the equimolar-standardized total PSA (Andrea Bhupinder). Comparison of serial PSA results should be interpreted with this fact in mind. This test was performed using the Siemens chemiluminescent method. Values obtained from different assay methods cannot be used interchangeably. PSA levels, regardless of value, should not be interpreted as absolute evidence of the presence or absence of disease. Performed By: #### 9 16, 08737, 6399 #### [facility] [address], [address] [place] [address] Development Geologist: Brian Wolff MD VALPROIC ACIDon 05-01-2025 VALPROIC ACID 43.4 mg/L Low 50.0-100.0 [facility] Comment on above: Performed By: #### 9 16, 60732, 6399 #### [facility] [address], [address] [place] [address] Development Geologist: Brian Wolff MD Abdomen/Pelvis W IV Cont ONL Yon 02-07-2025 Abdomen/Pelvis W IV Cont ONLY [facility] Imaging Services [address] [place] [address] [id number] Abdomen/Pelvis W IV Cont ONLY MR#: [id number] Acct: [id number] Name: ROME CASTILLO Rep #: [id number] : 1970 M 54 From: Norm rey MD PCP: Dr. Prema Archer DO Status: REG ER Study: Abdomen/Pelvis W IV Cont ONLY Date of Exam: Exam# [id number] Ordering Dr: Aramis Serna DO PROCEDURE: ABDOMEN/PELVIS W IV CONT ONLY 02/07/2025 REASON FOR EXAM: N/V, HIGH RESIDUAL FROM TUBE FEED TECHNIQUE: ABDOMEN/PELVIS W IV CONT ONLY Coronal and Sagittal reconstruction series were provided. CONTRAST: Isovue 3 7 VOLUME: 100 mL One or more dose reduction techniques were used (e.g., Automated exposure control, adjustment of the mA and/or kV according to patient size, use of iterative reconstruction technique. RADIATION DOSE SUMMARY: CTDlvol: 13 mGy DLP: 479.83 mGycm COMPARISON: None FINDINGS: Lung bases: Mild dependent atelectasis Liver: Normal size. No mass. Fatty infiltration of the liver. Gallbladder: No evidence of gallstones. The gallbladder is not distended. Spleen: Normal size. Pancreas: Normal size without evidence of mass surrounding inflammation or ductal dilation. Adrenals: Unremarkable Kidneys: Normal renal sizes. No hydronephrosis. Bladder: There is Bowel: A PEG tube is seen within the stomach. Moderate amount of fecal material is seen throughout the colon. Appendix: The appendix is not identified. There is no inflammatory process identified in the right lower quadrant to suggest appendicitis. Lymph nodes: No suspicious lymph node enlargement. Vasculature: The abdominal aorta and IVC are normal. Peritoneum / Retroperitoneum: Unremarkable Bones: Degenerative changes of the spine. CT/Abdomen/Pelvis W IV Cont ONLY IMPRESSION: Fatty infiltration of the liver. Peg tube is seen within the stomach. Distended urinary bladder. Reading Location: [place] [address] CC: Dr. Prema Archer DO; Dr. Aramis Serna DO International Sales Manager: Signed Normal [facility] Absolute lymphocyte countOrd ered By: Aramis Serna on 02-07-2025 Lymphocytes Auto (Unsp spec) [#/Vol] 0.46 10*3/uL Low 0.83-4.51 [facility] Absolute neutrophil countOrd ered By: Aramis Serna on 02-07-2025 Neutrophils (Bld) [#/Vol] 4.8 10*3/uL 2.0-7.7 [facility] Anion gap in Serum or Plasma Ordered By: Aramis Serna on 02-07-2025 Anion gap [Moles/Vol] 10 mmol/L 5-15 [facility] Automated lymphocyte count a s percentage of total leukocytesOrdered By: Aramis Serna on 02-07-2025 Lymphocytes/100 WBC Auto (Unsp spec) 8.0 % Low 19-41 [facility] BUN/creatinine ratioOrdered By: Aramis Serna on 02-07-2025 Urea nitrogen/Creatinine [Mass ratio] 42.4 mg/mg High 10-20 [facility] Basophil percentageOrdered B y: Aramis Serna on 02-07-2025 Basophils/100 WBC (Bld) 0.3 % 0-1 [facility] Bilirubin, totalOrdered By: Aramis Srena on 02-07-2025 Bilirubin [Mass/Vol] 0.38 mg/dL 0.00-1.30 [facility] CBC W/Diff, Automatedon 01-22 Absolute Lymph 0.46 X10 3/uL Low 0.83-4.51 [facility] Comment on above: Performed By: #### L 100.0100, L501.2450, L500.4050 #### [facility] [address] [place], [address] Absolute Neut 4.8 X10 3/uL Normal 2.0-7.7 [facility] Comment on above: Performed By: #### L 100.0100, L501.2450, L500.4050 #### [facility] Laboratory [address] [place], [address] Basophils/100 WBC (Bld) 0.3 % Normal 0-1 [facility] Comment on above: Performed By: #### L 100.0100, L501.2450, L500.4050 #### [facility] [address] [place], [address] Eosinophils/100 WBC (Bld) 0.0 % Normal 0-5 [facility] Comment on above: Performed By: #### L 100.0100, L501.2450, L500.4050 #### [facility] [address] [place], [address] Erythrocyte distribution width (RBC) [Ratio] 12.6 % Normal 11.6-14.6 [facility] Comment on above: Performed By: #### L 100.0100, L501.2450, L500.4050 #### [facility] [address] [place], [address] Hematocrit (Bld) [Volume fraction] 44.9 % Normal 40-54 [facility] Comment on above: Performed By: #### L 100.0100, L501.2450, L500.4050 #### [facility] [address] [place], [address] Hemoglobin (Bld) [Mass/Vol] 15.2 g/dL Normal 13.0-16.5 [facility] Comment on above: Performed By: #### L 100.0100, L501.2450, L500.4050 #### [facility] [address] [place], [address] IG% 0.200 Normal 0.0-0.9 [facility] Comment on above: Result Comment: IG% - Immature Granulocytes (promyelocytes, myelocytes and metamyelocytes) > 1% indicates that a LEFT SHIFT is Present. Performed By: #### L 100.0100, L501.2450, L500.4050 #### [facility] [address] [place], [address] Lymphocytes/100 WBC (Bld) 8.0 % Low 19-41 [facility] Comment on above: Performed By: #### L 100.0100, L501.2450, L500.4050 #### [facility] [address] [place], [address] MCH (RBC) [Entitic mass] 31.2 pg Normal 27.0-32.0 [facility] Comment on above: Performed By: #### L 100.0100, L501.2450, L500.4050 #### [facility] [address] [place], [address] MCHC (RBC) [Mass/Vol] 33.9 g/dL Normal 32-36 [facility] Comment on above: Performed By: #### L 100.0100, L501.2450, L500.4050 #### [facility] [address] [place], [address] MCV (RBC) [Entitic vol] 92.2 fL Normal 80-94 [facility] Comment on above: Performed By: #### L 100.0100, L501.2450, L500.4050 #### [facility] [address] [place], [address] Monocytes/100 WBC (Bld) 7.7 % Normal 0-10 [facility] Comment on above: Performed By: #### L 100.0100, L501.2450, L500.4050 #### [facility] [address] [place], [address] Neutrophils/100 WBC (Bld) 83.8 % High 47-70 [facility] Comment on above: Performed By: #### L 100.0100, L501.2450, L500.4050 #### [facility] [address] [place], [address] Nucleated RBC (Bld) [#/Vol] 0 10*3/uL Normal 0-5 [facility] Comment on above: Performed By: #### L 100.0100, L501.2450, L500.4050 #### [facility] [address] [place], [address] Platelet mean volume (Bld) [Entitic vol] 12.4 fL High 6.2-12.0 [facility] Comment on above: Performed By: #### L 100.0100, L501.2450, L500.4050 #### [facility] [address] [place], [address] Platelets (Bld) [#/Vol] 140 10*3/uL Low 150-450 [facility] Comment on above: Performed By: #### L 100.0100, L501.2450, L500.4050 #### [facility] [address] [place], [address] RBC (Bld) [#/Vol] 4.87 10*6/uL Normal 4.6-6.2 [facility] Comment on above: Performed By: #### L 100.0100, L501.2450, L500.4050 #### [facility] [address] [place], [address] RDW SD 42.4 fl Normal 35.1-43.9 [facility] Comment on above: Performed By: #### L 100.0100, L501.2450, L500.4050 #### [facility] [address] [place], [address] WBC (Bld) [#/Vol] 5.8 10*3/uL Normal 4.4-11.0 [facility] Comment on above: Performed By: #### L 100.0100, L501.2450, L500.4050 #### [facility] [address] [place], [address] Carbon dioxide, total [Moles /volume] in Central venous bloodOrdered By: Aramis Serna on 02-07-2025 CO2 [Moles/Vol] 27.1 mmol/L 21.0-32.0 [facility] Chloride assayOrdered By: Kurt Serna on 02-07-2025 Chloride [Moles/Vol] 104 mmol/L 98-108 [facility] Comprehensive Metabolic Prof ilon 02-07-2025 Albumin [Mass/Vol] 3.8 g/dL Normal 3.5-5.0 [facility] Comment on above: Performed By: #### L 100.0100, L501.2450, L500.4050 #### [facility] [address] [place], [address] Albumin/Globulin [Mass ratio] 1.2 {ratio} Normal 0.9-2.4 [facility] Comment on above: Performed By: #### L 100.0100, L501.2450, L500.4050 #### [facility] [address] [place], [address] ALK PHOS 102 U/L Normal 40-129 [facility] Comment on above: Performed By: #### L 100.0100, L501.2450, L500.4050 #### [facility] [address] [place], [address] ALT [Catalytic activity/Vol] 28 U/L Normal <=46 [facility] Comment on above: Performed By: #### L 100.0100, L501.2450, L500.4050 #### [facility] [address] [place], [address] AST [Catalytic activity/Vol] 22 U/L Normal <=37 [facility] Comment on above: Performed By: #### L 100.0100, L501.2450, L500.4050 #### [facility] [address] [place], [address] Bilirubin [Mass/Vol] 0.38 mg/dL Normal 0.00-1.30 [facility] Comment on above: Performed By: #### L 100.0100, L501.2450, L500.4050 #### [facility] [address] [place], [address] BUN/CRE 42.4 RATIO High 10-20 [facility] Comment on above: Performed By: #### L 100.0100, L501.2450, L500.4050 #### [facility] [address] [place], [address] Calcium [Mass/Vol] 9.3 mg/dL Normal 7.6-11.0 [facility] Comment on above: Performed By: #### L 100.0100, L501.2450, L500.4050 #### [facility] [address] [place], [address] Chloride [Moles/Vol] 104 mmol/L Normal 98-108 [facility] Comment on above: Performed By: #### L 100.0100, L501.2450, L500.4050 #### [facility] [address] [place], [address] CO2 [Moles/Vol] 27.1 mmol/L Normal 21.0-32.0 [facility] Comment on above: Performed By: #### L 100.0100, L501.2450, L500.4050 #### [facility] [address] [place], [address] Creatinine [Mass/Vol] 0.58 mg/dL Low 0.70-1.20 [facility] Comment on above: Performed By: #### L 100.0100, L501.2450, L500.4050 #### [facility] [address] [place], [address] ECRCL 102.97 ml/min Normal 50-250 [facility] Comment on above: Performed By: #### L 100.0100, L501.2450, L500.4050 #### [facility] [address] [place], [address] GAP 10 Normal 5-15 [facility] Comment on above: Performed By: #### L 100.0100, L501.2450, L500.4050 #### [facility] [address] [place], [address] GFR/1.73 sq M.predicted among non-blacks MDRD (S/P/Bld) [Vol rate/Area] 116 mL/min/{1.73_m2} Normal >60 [facility] Comment on above: Result Comment: mL/m in/1.73m2 CKD-EPI Creatinine Equation (2020) Performed By: #### L 100.0100, L501.2450, L500.4050 #### [facility] [address] [place], [address] Globulin (S) [Mass/Vol] 3.2 g/dL Normal 2.2-4.2 [facility] Comment on above: Performed By: #### L 100.0100, L501.2450, L500.4050 #### [facility] [address] [place], [address] Glucose [Mass/Vol] 143 mg/dL High 70-99 [facility] Comment on above: Performed By: #### L 100.0100, L501.2450, L500.4050 #### [facility] [address] [place], [address] Potassium [Moles/Vol] 4.7 mmol/L Normal 3.3-5.1 [facility] Comment on above: Performed By: #### L 100.0100, L501.2450, L500.4050 #### [facility] [address] [place], [address] Sodium [Moles/Vol] 141 mmol/L Normal 133-145 [facility] Comment on above: Performed By: #### L 100.0100, L501.2450, L500.4050 #### [facility] [address] [place], [address] T PROT 7.0 g/dL Normal 5.9-8.4 [facility] Comment on above: Performed By: #### L 100.0100, L501.2450, L500.4050 #### [facility] [address] [place], [address] Urea nitrogen [Mass/Vol] 24 mg/dL High 4-19 [facility] Comment on above: Performed By: #### L 100.0100, L501.2450, L500.4050 #### [facility] [address] [place], [address] Emergency Department Summary on 02-07-2025 Emergency Department Summary [facility] Medical Records Department [address] [place] [address] Emergency Department Summary 02/07/25 MR#: [id number] Acct: [id number] Name: ROME CASTILLO Rep #: [id number] : 1970 54 From: Aramis Serna DO PCP: Dr. Prema Archer, Status:REG ER Location: ED HPI History of Present Illness Chief Complaint: General Illness Narrative Narrative: Patient is a 54-year-old male with past medical history aphasia, cerebral palsy, seizure, PEG tube, nonverbal who presented to the emergency department via EMS from halfway per EMS he has had some nausea vomiting and high residual from PEG tube. Patient is unable to provide history of present illness therefore acute care caveat applies. According to the caregiver at bedside they note that he had no bowel movement from Tuesday to Tuesday gave a laxative and then he had a large bowel movement. They note that starting last night he developed nausea vomiting and had high residuals from his feeding tube today therefore they had him sent here for further evaluation management. [facility] Medical History Aphasia Constipation Cerebral palsy Hyperactivity Seizure PEG tube malfunction Nonverbal Home Medications ???Medication ???Instructions ???Recorded ???Last Taken ???Type lactose-reduced food-fiber 0.07 250 ml feeding tube 5X/DAY 5 Unknown History gram-1.5 kcal/mL liquid for tube feed (Isosource 1.5 Devon) lactulose 10 gram/15 mL oral 15 ml feeding tube BID 01/17/25 Un known History solution (Constulose) loratadine 10 mg tablet 10 mg feeding tube DAILY 01/17/25 Unknown History (Allerclear) mirtazapine 15 mg tablet 15 mg feeding tube QHS 01/17/25 Un known History pantoprazole 40 mg granules 40 mg feeding tube BID 01/17/25 Un known History delayed-release for susp in packet (Protonix) polyethylene glycol 3350 17 17 g feeding tube DAILY 01/17/25 U nknown History gram/dose oral powder (Miralax) risperidone 3 mg tablet (Risperdal) 3 mg feeding tube QHS 01/17/25 Unknown History valproic acid (as sodium salt) 250 250 mg feeding tube DAILY Unknown History mg/5 mL (5 mL) oral solution valproic acid (as sodium salt) 500 500 mg feeding tube QHS 01/17/25 Unknown History mg/10 mL (10 mL) oral solution ondansetron 4 mg disintegrating 4 mg PO Q6H PRN nausea and 5 Unknown Rx tablet vomiting #20 tabs Allergy/AdvReac Type Severity Reaction Status Date / Time No Known Allergies Allergy Verified 01/17/25 06:57 Social History Smoking Status: Unknown if ever smoked ROS ROS ED ROS Narrative Review of systems unobtainable from the patient secondary to his aphasia and nonverbal therefore acute care caveat applies EXAM Physical Exam Narrative Exam Narrative: General: Patient was lying in bed rest comfortably did not appear to be in acute distress Head: Atraumatic, normocephalic Eyes: PERRL bilateral, EOMI black no conjunctival injection noted Neck: Soft, supple, trachea midline Cardiovascular: Regular rate rhythm no murmurs gallops rubs noted Respiratory: Clear to auscultation bilaterally no rales rhonchi or wheezes noted Abdomen: Soft, nondistended, PEG tube in place no concern for surrounding infection there was tube feed noted in the feeding tube itself Neurological: Patient at his baseline per staff at bedside Skin: Warm, dry, intact no rashes or lesions noted Const Vital Signs: 02/07/25 08:46 02/07/25 08:51 02/07/25 09:31 Temperature 97.2 F L Temperature Source Axillary Pulse Rate 78 87 Respiratory Rate 18 Respiratory Effort Normal Non-Labored Respiratory Pattern Normal Blood Pressure 109/77 101/88 H Blood Pressure Mean 87 92 Pulse Ox 97 Oxygen Delivery Method Room Air MDM MDM MDM Narrative Medical decision making narrative: Patient is a 54-year-old male who presented to the emergency department with a chief complaint of nausea, vomiting, high residual tube feeds. On the differential diagnosis includes but not limited to ileus, bowel obstruction, PEG tube not in the appropriate position, viral gastroenteritis, constipation. Once workup is obtained reviewed he will be reevaluated Patient's CBC reviewed showed no leukocytosis white blood count 5.8, hemoglobin stable 15.2, plate count was 140. Sodium 141, potassium normal 4.7, creatinine was 0.58. Patient AST and ALT are 22 and 28 respectively. Patient lipase normal at 18. Patient's CT abdomen pelvis IV contrast reviewed and showed fatty infiltration of liver PEG tube is seen within the stomach distended urinary bladder. Patient is moderate mount of fecal material seen throughout the colon. I discu (more content not included)... Normal [facility] Eosinophil percentageOrdered By: Aramis Serna on 02-07-2025 Eosinophils/100 WBC (Bld) 0.0 % 0-5 [facility] Erythrocyte distribution wid th ratioOrdered By: Aramiskye Serna on 02-07-2025 Erythrocyte distribution width (RBC) [Ratio] 12.6 % 11.6-14.6 [facility] Erythrocyte distribution wid th standard deviationOrdered By: Aramis Serna on 02-07-2025 Erythrocyte distribution width (RBC) [Ratio] 42.4 fl 35.1-43.9 [facility] Glomerular filtration rate ( GFR) estimation/1.73 sq m using serum, plasma, or whole bOrdered By: Aramis Serna on 02-07-2025 GFR/1.73 sq M.predicted among non-blacks MDRD (S/P/Bld) [Vol rate/Area] 116 mL/min/{1.73_m2} >60 [facility] Comment on above: mL/min/1.73m2 CKD-EP I Creatinine Equation (2020) Hematocrit Auto (Bld) [Volum e fraction]Ordered By: Aramis Serna on 02-07-2025 Hematocrit (Bld) [Volume fraction] 44.9 % 40-54 [facility] Hemoglobin measurementOrdere d By: Aramis Serna on 02-07-2025 Hemoglobin (Bld) [Mass/Vol] 15.2 g/dL 13.0-16.5 [facility] Immature granulocytes/100 WB C Auto (Bld)Ordered By: Aramis Serna on 02-07-2025 Immature granulocytes/100 WBC (Bld) 0.200 % 0.0-0.9 [facility] Comment on above: IG% - Immature Granu locytes (promyelocytes, myelocytes and metamyelocytes) > 1% indicates that a LEFT SHIFT is Present. Laboratory - Chemistry and C hemistry - challengeOrdered By: Aramis Serna on 02-07-2025 AST [Catalytic activity/Vol] 22 U/L <38 [facility] Lipaseon 02-07-2025 Lipase [Catalytic activity/Vol] 18 U/L Normal 13-75 [facility] Comment on above: Result Comment: Andrzej lozano note: LIPASE revised reference range effective 22. New Lipase methodology. Expected to produce lower values than the previous assay method. NEW Reference Range: 13 - 75 U/L Performed By: #### L 100.0100, L501.2450, L500.4050 #### [facility] [place], [place], [id number] Lipase measurementOrdered By : Aramis Serna on 02-07-2025 Lipase [Catalytic activity/Vol] 18 U/L 13-75 [facility] Comment on above: Please note:LIPASE r evised reference range effective 22. New Lipase methodology. Expected to produce lower values than the previous assay method. NEW Reference Range: 13 - 75 U/L MCV (mean corpuscular volume ) determinationOrdered By: Aramis Serna on 02-07-2025 MCV (RBC) [Entitic vol] 92.2 fL 80-94 [facility] Mean corpuscular hemoglobin (MCH) determinationOrdered By: Aramis Serna on 02-07-2025 MCH (RBC) [Entitic mass] 31.2 pg 27.0-32.0 [facility] Mean corpuscular hemoglobin concentration (MCHC) determinationOrdered By: Aramis Serna on 02-07-2025 MCHC (RBC) [Mass/Vol] 33.9 g/dL 32-36 [facility] Mean platelet volume determi nationOrdered By: Aramis Serna on 02-07-2025 Platelet mean volume (Bld) [Entitic vol] 12.4 fL High 6.2-12.0 [facility] Monocyte percentageOrdered B y: Aramis Serna on 02-07-2025 Monocytes/100 WBC (Bld) 7.7 % 0-10 [facility] Neutrophil percentageOrdered By: Aramis Serna on 02-07-2025 Neutrophils/100 WBC (Bld) 83.8 % High 47-70 [facility] Nucleated red blood cell per centageOrdered By: Aramis Serna on 02-07-2025 Nucleated RBC/100 WBC (Bld) [Ratio] 0 % 0-5 [facility] Platelet countOrdered By: Kurt Serna on 02-07-2025 Platelets (Bld) [#/Vol] 140 10*3/uL Low 150-450 [facility] Potassium measurement (mass/ volume)Ordered By: Aramis Serna on 02-07-2025 Potassium (Unsp spec) [Mass/Vol] 4.7 mmol/L 3.3-5.1 [facility] RBC Auto (Bld) [#/Vol]Ordere d By: Aramis Serna on 02-07-2025 RBC (Bld) [#/Vol] 4.87 10*6/uL 4.6-6.2 [facility] Serum creatinine measurement (mass/volume)Ordered By: Aramis Serna on 02-07-2025 Creatinine [Mass/Vol] 0.58 mg/dL Low 0.70-1.20 [facility] Serum globulin measurementOr dered By: Aramis Serna on 02-07-2025 Globulin (S) [Mass/Vol] 3.2 g/dL 2.2-4.2 [facility] Serum glucose measurement (m ass/volume)Ordered By: Aramis Serna on 02-07-2025 Glucose [Mass/Vol] 143 mg/dL High 70-99 [facility] Serum or plasma alanine negrete otransferase (ALT) measurementOrdered By: Aramis Serna on 02-07-2025 ALT [Catalytic activity/Vol] 28 U/L <47 [facility] Serum or plasma albumin bing urement (mass/volume)Ordered By: Aramis Serna on 02-07-2025 Albumin [Mass/Vol] 3.8 g/dL 3.5-5.0 [facility] Serum or plasma albumin/glob ulin mass ratioOrdered By: Aramis Serna 02-07-2025 Albumin/Globulin [Mass ratio] 1.2 {ratio} 0.9-2.4 [facility] Serum or plasma alkaline ann-marie sphatase measurementOrdered By: Aramis Arciniegaer on 02-07-2025 ALP [Catalytic activity/Vol] 102 U/L 40-129 [facility] Serum or plasma calcium bing urement (mass/volume)Ordered By: Aramis Serna on 02-07-2025 Calcium [Mass/Vol] 9.3 mg/dL 7.6-11.0 [facility] Serum or plasma urea nitroge n measurement (mass/volume)Ordered By: Aramis Serna on 02-07-2025 Urea nitrogen [Mass/Vol] 24 mg/dL High 4-19 [facility] Sodium levelOrdered By: [facility]enna Kareem on 02-07-2025 Sodium [Moles/Vol] 141 mmol/L 133-145 [facility] Total proteinOrdered By: Ava Serna on 02-07-2025 Protein [Mass/Vol] 7.0 g/dL 5.9-8.4 [facility] White blood cell (WBC) count Ordered By: Aramis Kareem on 02-07-2025 WBC (Bld) [#/Vol] 5.8 10*3/uL 4.4-11.0 [facility] Abdomen Single View (Portabl e)on 01-17-2025 Abdomen Single View (Portable) [facility] Imaging Services [address] [place], [place] [address] Abdomen Single View (Portable) MR#: [id number] Acct: [id number] Name: JONATHANROME Delilah Rep #: [id number] : 1970 M 54 From: Josue patton MD PCP: Dr. Prema Archer DO Status: PRE ER Study: Abdomen Single View (Portable) Date of Exam: 0 01/17/25 Exam# [id number] Ordering Dr: Elías Hernández DO PROCEDURE: ABDOMEN SINGLE VIEW (PORTABLE) 01/17/2025 REASON FOR EXAM: PEG TUB EVAL TECHNIQUE: ABDOMEN SINGLE VIEW (PORTABLE) COMPARISON: None. FINDINGS: Percutaneous gastrostomy tube is in good position with its tip at the level of the gastric body. Contrast was injected through the tube outlining normal gastric rugae without evidence of contrast leakage. Normal visualized lung bases. There is an unremarkable bowel gas pattern. There is no demonstrated free abdominal air. Normal visualized liver. Normal visualized spleen. Normal visualized kidneys. The soft tissue structures of the pelvis are unremarkable. Moderate diffuse spondylosis. RAD/Abdomen Single View (Portable) IMPRESSION: Percutaneous gastrostomy tube is in good position. Reading [facility] CC: Dr. Prema Archer DO; Dr. Elías Hernández DO International Sales Manager: Signed Normal [facility] Emergency Department Summary on 01-17-2025 Emergency Department Summary [facility] Medical Records Department [address] [place] [address] Emergency Department Summary 01/17/25 MR#: [id number] Acct: [id number] Name: ROME CASTILLO Rep #: [id number] : 1970 54 From: Elías Banegas PCP: Dr. Prema Archer DO Status:PRE ER Location: ED HPI History of Present Illness Chief Complaint: Other, Pain/Inj Narrative Narrative: Patient nonverbal. Sent in for evaluation of PEG tube. Reported patient tugged on the tube there was bleeding. Unclear exactly when this was placed as there is no current records. [facility] Medical History (Updated 01/17/25 @ 07:[address] Elías Hernández DO) Aphasia Constipation Cerebral palsy Hyperactivity Seizure PEG tube malfunction Nonverbal Home Medications ???Medication ???Instructions ???Recorded ???Last Taken ???Type lactose-reduced food-fiber 0.07 250 ml feeding tube 5X/DAY 5 Unknown History gram-1.5 kcal/mL liquid for tube feed (Isosource 1.5 Devon) lactulose 10 gram/15 mL oral 15 ml feeding tube BID 01/17/25 Un known History solution (Constulose) loratadine 10 mg tablet 10 mg feeding tube DAILY 01/17/25 Unknown History (Allerclear) mirtazapine 15 mg tablet 15 mg feeding tube QHS 01/17/25 Un known History pantoprazole 40 mg granules 40 mg feeding tube BID 01/17/25 Un known History delayed-release for susp in packet (Protonix) polyethylene glycol 3350 17 17 g feeding tube DAILY 01/17/25 U nknown History gram/dose oral powder (Miralax) risperidone 3 mg tablet (Risperdal) 3 mg feeding tube QHS 01/17/25 Unknown History valproic acid (as sodium salt) 250 250 mg feeding tube DAILY Unknown History mg/5 mL (5 mL) oral solution valproic acid (as sodium salt) 500 500 mg feeding tube QHS 01/17/25 Unknown History mg/10 mL (10 mL) oral solution Allergy/AdvReac Type Severity Reaction Status Date / Time No Known Allergies Allergy Verified 01/17/25 06:57 Social History Smoking Status: Unknown if ever smoked ROS ROS ED Review of Systems ROS Unobtainable: other Details: Limited secondary to patient nonverbal EXAM Physical Exam Const Vital Signs: 01/17/25 06:56 Temperature 97.6 F L Temperature Source Temporal Pulse Rate 84 Respiratory Rate 16 Blood Pressure 141/32 H Blood Pressure Mean 68 Pulse Ox 98 Oxygen Delivery Method Room Air Positive cachectic and contractures General Appearance ED: cachectic and contractures Nutritional Appearance: cachectic HEENT normocephalic and atraumatic Eyes General Eye ED: Yes normal appearance of both eyes Resp normal respiratory effort and normal air movement Cardio regular rate and regular rhythm GI GI Narrative: Abdominal binder, removed, PEG tube, stressing, orifice appears fairly fresh wound, dried blood around this, no active bleeding. Neuro Neuro Narrative: Awake, nontoxic Skin Skin Narrative: See above MDM MDM MDM Narrative Medical decision making narrative: Interventions / MDM: Differential diagnosis: PEG tube evaluation Diagnosis considered but do not suspect: Dislodged PEG tube however KUB confirms placement. My EKG interpretation: N/A Imaging independently reviewed and interpreted by myself: KUB: Performed formed with Gastrografin confirms placement External documents reviewed: N/A Test considered but not ordered:N/A ED course: Concerns for bleeding from PEG tube, appears fairly fresh placement with the wound. Patient being nonverbal, KUB with Gastrografin will be ordered to confirm location. 0725: KUB reviewed bedside confirms placement in the stomach. Caregiver bedside. Reports overall place a year ago however was previously pulled needed surgical revision, she cannot tell me when. He is at a halfway nonverbal. There is a booklet of medications however no medical conditions that she can tell me specifically. Reports he is PEG tube dependent. I discussed wound care continue dressings. Tube is okay to use. Patient will be discharged back with caregiver. Re-evaluation: stable Disposition discussed with patient/family/signi ficant other: Caregiver Case discussed with consulting clinician: N/A This note was generated with [employer]ons[employer] dictation software. It may contain incorrect words, spelling, and punctuation that were not noted in checking the note before signing. Discharge Plan Triage Chief Complaint: Other, Pain/Inj ED Provider: Elías Hernández Dx/Rx/DC Orders Clinical Impression: Irritation around percutaneous endoscopic gastrostomy (PEG) tube site, Nonverbal Instructions: Feeding Tube Prescriptions: No Action lactulose [Constulose] 10 gram/15 mL solution 15 ml feeding tube BID loratadine [Allerclear] 10 mg tablet 10 m (more content not included)... Normal [facility] MTB SCREENon 2024 MITOGEN-NIL 2.9587 IU/mL Normal [facility] Comment on above: Performed By: #### L [id number] #### [facility] [address] [place], [place] [id number] Mundo Dao M.D. [id number] MTB SCREEN INTERPRETATION Negative Normal Negative [facility] Comment on above: Result Comment: No I FN-gamma response to M tuberculosis antigens was detected. Latent infection with M tuberculosis is unlikely. A single negative result does not exclude infection with M tuberculosis. In patients at high risk for M tuberculosis infection,a second test should be considered Performed By: #### L [id number] #### [facility] [address] [place] [address] Mundo Dao M.D. [id number] NIL 0.0313 IU/mL Normal [facility] Comment on above: Performed By: #### L [id number] #### [facility] [address] [place] [address] Mundo Dao M.D. [id number] TB1-NIL 0.0133 IU/mL Normal 0.00 0.34 [facility] Comment on above: Performed By: #### L [id number] #### [facility] [address], [place] [address] Mundo Dao M.D. [id number] TB2-NIL -0.0052 IU/mL Normal 0.00 0.34 [facility] Comment on above: Result Comment: Inte rferon gamma release is measured for specimens from each of the four collection tubes. A qualitative result (Negative, Positive, or Indeterminate) is based on interpretation of the four values, NIL, MITOGEN minus NIL (MITOGEN-NIL), TB1 minus NIL (TB1-NIL), and TB2 minus NIL (TB2-NIL). The NIL value represents nonspecific reactivity produced by the patient specimen. The MITOGEN-NIL value serves as the positive control for the patient specimen, demonstrating successful lymphocyte reactivity. The TB1-NIL tube specifically detects CD4+ lymphocyte reactivity, specifically stimulated by the TB1 antigens. The TB2-NIL tube detects both CD4+ and CD8+ lymphocyte reactivity, stimulated by the TB2 antigens. An overall Negative result does not completely rule out TB Infection. Performed By: #### L [id number] #### [facility] [address], [place] [address] Mundo Dao M.D. [id number] XR CHEST AP/PA AND LATon XR CHEST AP/PA AND LAT EXAMINATION: XR CHEST AP/PA AND LAT 11/19/2024 2:14 pm HISTORY: ORDERING SYSTEM PROVIDED HISTORY: cough, TECHNOLOGIST PROVIDED HISTORY: Illness/Other Reason for exam: wet cough for few days and worsening pt is nonverbal and wheelchair bound unable to follow breathing or positioning instructions Cancer History: u Surgery, RadiationHistory: u Encounter Type: Initial Additional signs and symptoms: na ORDERING SYSTEM PROVIDED DIAGNOSIS CODES: R05.9 Cough, unspecified type COMPARISON: Chest x-ray June 20, 2024. TECHNIQUE: Frontal and lateral views of the chest. FINDINGS: Lung volumes are diminished but fairly symmetric bilaterally with bronchovascular crowding. No focal airspace consolidation, pneumothorax or sizable pleural effusion. No obvious acute osseous abnormality. Multilevel spinal degenerative changes. IMPRESSION: Diminished lung volumes, without evidence of focal pneumonia. JAR/ads Workstation ID: [id number] Dictated by: NEVILLE VEGA on TueNov 20, 2024 10:26:12 AM EDT Transcribed by: ANDREA MONTES on TueNov 20, 2024 10:27:10 AM EDT Finalized by: NEVILLE VEGA on TueNov 20, 2024 1:38:20 PM EDT [facility] Comment on above: Order Comment: Injur y/Trauma or Illness?:Illness/OtherHow long have you had these symptoms (acute/chronic)?:AcuteReason for exam?:wet cough for few days and worsening pt is nonverbal and wheelchair bound unable to follow breathing or positioning instructionsHistory of cancer?:uSurgeries, chemotherapy, or radiation?:uType of Exam?:InitialAdditional signs and symptoms?:na Basic metabolic 2000 panelon 07-19-2024 Anion gap [Moles/Vol] 10 mmol/L Normal 10-20 [facility] Comment on above: Performed By: #### 2 4321-2 #### SUZANNA BECKER ([id number]) [facility] ([facility]) [facility] [place] [address] Calcium [Mass/Vol] 8.4 mg/dL Low 8.6-10.3 [place] Comment on above: Performed By: #### 2 4321-2 #### SUZANNA BECKER ([id number]) [facility] ([facility]) [address] [place] [address] Chloride [Moles/Vol] 107 mmol/L Normal 98-107 [facility] Comment on above: Performed By: #### 2 4321-2 #### SUZANNA BECKER ([id number]) [facility] ([facility]) [address] [place] [address] CO2 [Moles/Vol] 26 mmol/L Normal 21-32 [facility] Comment on above: Performed By: #### 2 4321-2 #### SUZANNA BECKER ([id number]) [facility] ([facility]) [facility] [place] [address] Creatinine [Mass/Vol] 0.42 mg/dL Low 0.50-1.30 [facility] Comment on above: Performed By: #### 2 4321-2 #### SUZANNA BECKER ([id number]) [facility] ([facility]) [address] [place] [address] GFR/1.73 sq M.predicted MDRD (S/P/Bld) [Vol rate/Area] mL/min/{1.73_m2} Normal >60 [facility] Comment on above: Result Comment: Calc ulations of estimated GFR are performed using the 2020 CKD-EPI Study Refit equation without the race variable for the IDMS-Traceable creatinine methods. https://jasn.asnjournals.org/content///ASN.20 15716273 Performed By: #### 2 4321-2 #### SUZANNA BECKER ([id number]) [facility] ([facility]) [address] [place] [address] Glucose [Mass/Vol] 82 mg/dL Normal 74-99 [place] Comment on above: Performed By: #### 2 4321-2 #### SUZANNA BECKER ([id number]) [facility] ([facility]) [address] [place] [address] Potassium [Moles/Vol] 4.3 mmol/L Normal 3.5-5.3 [facility] Comment on above: Performed By: #### 2 4321-2 #### SUZANNA BECKER ([id number]) [facility] ([facility]) [address] [place] [address] Sodium [Moles/Vol] 139 mmol/L Normal 136-145 [place] Comment on above: Performed By: #### 2 4321-2 #### SUZANNA BECKER ([id number]) [facility] ([facility]) [address] [place] [address] Urea nitrogen [Mass/Vol] 11 mg/dL Normal 6-23 [facility] Comment on above: Performed By: #### 2 4321-2 #### SUZANNA BECKER ([id number]) [facility] ([facility]) [address] [place] [address] CBC panel Auto (Bld)on 12-26 -2024 Erythrocyte distribution width (RBC) [Ratio] 12.7 % Normal 11.5-14.5 [facility] Comment on above: Performed By: #### 5 8410-2 #### SUZANNA BECKER ([id number]) [facility] ([facility]) [address] [place] [address] Hematocrit (Bld) [Volume fraction] 37.3 % Low 41.0-52.0 [facility] Comment on above: Performed By: #### 5 8410-2 #### SUZANNA BECKER ([id number]) [facility] ([facility]) [address] [place] [address] Hemoglobin (Bld) [Mass/Vol] 12.2 g/dL Low 13.5-17.5 [facility] Comment on above: Performed By: #### 5 8410-2 #### SUZANNA BECKER ([id number]) [facility] ([facility]) [address] [place] [address] MCH (RBC) [Entitic mass] 30.4 pg Normal 26.0-34.0 [facility] Comment on above: Performed By: #### 5 8410-2 #### SUZANNA BECKER ([id number]) [facility] ([facility]) [address] [place] [address] MCHC (RBC) [Mass/Vol] 32.7 g/dL Normal 32.0-36.0 [facility] Comment on above: Performed By: #### 5 8410-2 #### SUZANNA BECKER ([id number]) [facility] ([facility]) [address] [place] [address] MCV (RBC) [Entitic vol] 93 fL Normal 80-100 [facility] Comment on above: Performed By: #### 5 8410-2 #### SUZANNA BECKER ([id number]) [facility] ([facility]) [address] [place] [address]68[address] Nucleated RBC/100 WBC (Bld) [Ratio] 0.0 /100 WBCs Normal 0.0-0.0 [facility] Comment on above: Performed By: #### 5 8410-2 #### SUZANNA BECKER ([id number]) [facility] ([facility]) [address] [place] [address] Platelets (Bld) [#/Vol] 158 x10*3/uL Normal 150-450 [facility] Comment on above: Performed By: #### 5 8410-2 #### SUZANNA BECKER ([id number]) [facility] ([facility]) [address] [place] [address] RBC (Bld) [#/Vol] 4.01 x10*6/uL Low 4.50-5.90 [facility] Comment on above: Performed By: #### 5 8410-2 #### SUZANNA BECKER ([id number]) [facility] ([facility]) [address] [place] [address] WBC (Bld) [#/Vol] 4.9 x10*3/uL Normal 4.4-11.3 [facility] [place] Comment on above: Performed By: #### 5 8410-2 #### SUZANNA BECKER ([id number]) [facility] ([facility]) [address] [place] [address] Valproateon 07-19-2024 Valproate [Mass/Vol] 20 ug/mL Low 50-100 [facility] Comment on above: Performed By: #### 4 086-5 #### SUZANNA BECKER ([id number]) [facility] ([facility]) [address] [place] [address] CT CHEST ABDOMEN PELVIS WITH OUT CONTRASTon 07-17-2024 CT CHEST ABDOMEN PELVIS WITHOUT CONTRAST EXAMINATION: CT CHEST ABDOMEN PELVIS WITHOUT CONTRAST: 07/17/2024. HISTORY: ORDERING SYSTEM PROVIDED HISTORY: vomiting, TECHNOLOGIST PROVIDED HISTORY: Illness/Other Reason for exam: vomiting today recent replacement of PEG tube concern for aspiration Encounter Type: Initial Additional signs and symptoms: pt cerebral palsy and nonverbal COMPARISON: Enhanced CT scan of the abdomen and pelvis: 06/20/2024. TECHNIQUE: 3.75 mm axial images from thoracic inlet through ischial tuberosities without intravenous or oral contrast were obtained. Sagittal, coronal reconstructions were performed. Dose reduction techniques were achieved by using automated exposure control and/or adjustment of mA and/or kV according to patient size and/or use of iterative reconstruction technique. FINDINGS: The study overall is limited secondary to lack of intravenous, oral contrast, respiration-related motion artifacts as well as beam-hardening artifacts from patient's arms. CT CHEST: There are minimal bibasilar dependent atelectatic changes at the lung bases. There is no evidence of routine or aspiration pneumonia. There is no pulmonary edema, nodular densities or pneumothorax. No pleural effusions are seen. For a noncontrast study, the visualized thyroid, great vessels, aorta seem normal except for minimal atherosclerotic changes of the aorta. The heart size seems enlarged. There is no significant axillary, hilar or mediastinal adenopathy. CORONARY ARTERIES: No significant coronary artery calcifications are seen. CT ABDOMEN: There is interposition of colon between the right hemidiaphragm, liver. There is a PEG tube in the distal body of the stomach. Along the PEG tube, no associated induration of fat or fluid collections are seen. Previously seen pneumoperitoneum is no longer visualized. For a noncontrast study, the liver, gallbladder, spleen, pancreas, adrenal glands, kidneys demonstrate no focal abnormalities. The liver measures approximately 18.4 cm in craniocaudal dimension while the spleen measures 12.4 cm in craniocaudal dimension without interval change. The abdominal aorta has normal caliber. Appendix is not seen. There is no retroperitoneal or mesenteric adenopathy. CT PELVIS: There is moderate amount of stool particularly in the sigmoid, rectosigmoid without wall thickening. The bladder is normal. The prostate, seminal vesicles appear normal. There is no ureterolithiasis. There is no definite pelvic adenopathy. No discrete pockets of fluid collections are seen. Images on bone windows demonstrate degenerative changes of thoracolumbar spine. IMPRESSION: 1. Minimal atelectatic changes at the lung bases; however, no evidence of pneumonia either routine or aspiration. 2. Mild hepatosplenomegaly, unchanged. 3. No nephrolithiasis or ureterolithiasis. 4. PEG tube in the stomach without induration of surrounding fat or focal fluid collections. 5. There is a small amount of air-containing density with increased density which could represent a loop of bowel or could represent a loculated increased density probably from previous barium study, image 83, sequence 5, without associated air-fluid collection. This could represent a bowel loop as well. [employer] GrillV/trw Workstation ID: [id number] Dictated by: ERIC RICKS on TueJul 17, 2024 8:12:33 AM EST Transcribed by: LENA SOLOMON on TueJul 17, 2024 8:18:08 AM EST Finalized by: ERIC RICKS on TueJul 17, 2024 9:18:23 AM EST [facility] Comment on above: Order Comment: Injur y/Trauma or Illness?:Illness/Other How long have you had these symptoms (acute/chronic)?:Acute Reason for exam?:vomiting today recent replacement of peg tube concern for aspiration Type of Exam?:Initial Additional signs and symptoms?:pt cerebral palsy and non verbal ED Prov Noteon 07-17-2024 ED Prov Note I received patient in signout pending CT read with plan for likely discharge back to facility. He has severe cerebral palsy and resides in extended-care facility and is fed via PEG tube which was replaced on June 20 following ex lap for dislodged PEG tube and associated pneumoperitoneum. He reportedly had 1 large episode of emesis at the facility and has not any further vomiting here. Vitals are reassuring. Abdomen is soft. He does have large amount of air in the stomach on my review of CT abdomen pelvis. Otherwise, no obstruction, free air or fluid. Radiology read of CT is benign. Labs are benign. Patient stable for discharge back to facility Vadim Naranjo, DO 07/17/24 0827 AUTHENTICATED BY VADIM NARANJO, ON 07/17/2024 08:27:14 [facility] ED Prov Note ED PROVIDER NOTE [facility] NAME: Rome Castillo AGE: 53 y.o. : 1970 VISIT DATE: 07/17/2024 CSN: [id number] PCP: Cruzito Doe MD Chief Complaint Patient presents with Emesis The [facility] with a complaint he vomited once, the patient has advanced cerebral palsy and he is nonverbal, could not get any history from the patient, according to the jail he had a recent PEG tube placed, patient is alert and constantly moving his upper extremities, the lower extremities are very wasted and contracted Emesis Past Medical History: Diagnosis Date Cerebral palsy (HCC) Dysphagia Dysphagia, oropharyngeal phase Erythematous condition, unspecified Failure to thrive 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 No pertinent family history. Social History Socioeconomic History Marital status: Single Tobacco Use Smoking status: Never Smokeless tobacco: Never Vaping Use Vaping status: Unknown Substance and Sexual Activity Alcohol use: Not Currently Drug use: Not Currently Social Drivers of Health Food Insecurity: Patient Unable To Answer (06/20/2024) Hunger Vital Sign Worried About Running Out of Food in the Last Year: Patient unable to answer Ran Out of Food in the Last Year: Patient unable to answer Transportation Needs: Patient Unable To Answer (06/20/2024) PRAPARE - Transportation Lack of Transportation (Medical): Patient unable to answer Lack of Transportation (Non-Medical): Patient unable to answer Housing Stability: Patient Unable To Answer (06/20/2024) Housing Stability Vital Sign Unable to Pay for Housing in the Last Year: Patient unable to answer Number of Times Moved in the Last Year: 0 Homeless in the Last Year: Patient unable to answer Previous Medications Medication Sig acetaminophen (TYLENOL) 325 MG suppository Insert 1 (one) suppository (325 mg total) into the rectum every 4 (four) hours as needed for fever . bisacodyL (FLEET) 10 mg/30 mL Enem Insert 30 mL (10 mg total) into the rectum daily as needed (constipation) . divalproex (DEPAKOTE SPRINKLE) 125 mg delayed release (DR) capsule 4 (four) capsules (500 mg total) by Other route at bedtime Per G tube . divalproex (DEPAKOTE SPRINKLE) 125 mg delayed release (DR) capsule 2 (two) capsules (250 mg total) by Other route daily Per G Tube . ibuprofen (ADVIL,MOTRIN) 100 mg/5 mL suspension 10 mL (200 mg total) by Per G Tube route every 6 (six) hours as needed for pain . lactulose (CHRONULAC) 20 gram/30 mL Soln Take 15 mL (10 g total) per G-tube 2 (two) times a day . loratadine (CLARITIN) 10 mg tablet 1 (one) tablet (10 mg total) by Per G Tube route daily . mirtazapine (REMERON) 15 MG tablet 1 (one) tablet (15 mg total) by Per G Tube route nightly . omeprazole (PRILOSEC) 40 MG capsule 1 (one) capsule (40 mg total) by Other route 2 (two) times a day . polyethylene glycol (MIRALAX) 17 gram powder 17 (seventeen) g by Per G Tube route daily . risperiDONE (RISPERDAL) 2 MG tablet 1 (one) tablet (2 mg total) by Per G Tube route daily . No Known Allergies Review of Systems Reason unable to perform ROS: Patient has cerebral palsy and nonverbal. Gastrointestinal: Positive for vomiting. Patient Vitals for the past 24 hrs: BP Temp Pulse Resp SpO2 07/17/24 0710 -- -- -- 18 -- 07/17/24 0703 124/68 97.7 degrees F (36.5 degrees C) 64 18 94 % Physical Exam Vitals and nursing note reviewed. Constitutional: Comments: As above the patient has advanced cerebral palsy, he is bedbound, very wasted specially in the lower extremities and they are contracted, he is constantly tossing and turning in bed and has uncontrollable movements of his upper extremities HENT: Head: Normocephalic. Eyes: Extraocular Movements: Extraocular movements intact. Neck: Comments: Patient has neck rigidity from the body posture Musculoskeletal: Comments: As above upper extremities are wasted and has uncontrollable movements, lower extremities are very wasted and contracted Pulmonary: Effort: Pulmonary effort is normal. No respiratory distress. Abdominal: Palpations: Abdomen is soft. Comments: Abdomen is soft, PEG tube in place Skin: General: Skin is warm. Neurological: Mental Status: He is alert. Comments: Patient is alert and nonverbal, bedbound as above Laboratory & Radiographic Imaging (if done): Results for orders placed or performed during the hospital encounter (more content not included)... [facility] POC CBC AND DIFFERENTIALon 1 09-17-2023 BASOPHILS ABSOLUTE COUNT 0.03 K/mcL Normal 0.00-0.30 [facility] Basophils/100 WBC (Bld) 0.7 % Normal [facility] Eosinophils (Bld) [#/Vol] 0.06 10*3/uL Normal 0.00-0.5 0 [facility] Eosinophils/100 WBC (Bld) 1.5 % Normal [facility] Erythrocyte distribution width (RBC) [Ratio] 12.3 % Normal 11.6-14.8 [facility] Hematocrit (Bld) [Volume fraction] 39.3 % Low 41.0-53.0 [facility] Hemoglobin (Bld) [Mass/Vol] 13.2 g/dL Low 13.5-17.5 [facility] IG ABSOLUTE 0.01 K/mcL Normal 0.00-0.30 [facility] IG PERCENT 0.20 % Normal [facility] Comment on above: Result Comment: The IG parameter is the percentage of metamyelocytes, myelocytes and promyelocytes. An immature granulocyte count (IG) of 1% or more suggests the possibility of infection, an IG count of 3% is very likely related to an infection. Lymphocytes (Bld) [#/Vol] 1.08 10*3/uL Normal 0.90-4.0 0 [facility] Lymphocytes/100 WBC (Bld) 26.5 % Normal [facility] MCH (RBC) [Entitic mass] 31.4 pg Normal 26.0-34.0 [facility] MCV (RBC) [Entitic vol] 93.3 fL Normal 80.0-100.0 [facility] MEAN CORPUSCULAR HEMOGLOBIN CONC 33.6 g/dL Normal 31.0-37.0 [facility] Monocytes (Bld) [#/Vol] 0.18 10*3/uL Low 0.30-0.90 [facility] Monocytes/100 WBC (Bld) 4.4 % Normal [facility] NEUTROPHILS ABSOLUTE COUNT 2.71 K/mcL Normal 1.70-7.00 [facility] Neutrophils/100 WBC (Bld) 66.7 % Normal [facility] Platelet mean volume (Bld) [Entitic vol] 11.6 fL Normal 9.4-12.4 [facility] Platelets (Bld) [#/Vol] 152 10*3/uL Normal 150-400 [facility] RBC (Bld) [#/Vol] 4.21 10*6/uL Low 4.50-5.90 [facility] WBC (Bld) [#/Vol] 4.07 10*3/uL Low 4.50-11.00 [facility] POC LIVER PANEL PLUS [facility] 07-17-2024 Albumin [Mass/Vol] 3.4 g/dL Normal 3.2-5.2 [facility] ALP [Catalytic activity/Vol] 85 U/L Normal 40-150 [facility] ALT [Catalytic activity/Vol] 30 U/L Normal 0-40 [facility] Amylase [Catalytic activity/Vol] 39 U/L Normal 25-115 [facility] Amylase [Catalytic activity/Vol] 11 U/L Normal 11-51 [facility] AST [Catalytic activity/Vol] 26 U/L Normal 0-45 [facility] Bilirubin [Mass/Vol] 0.8 mg/dL Normal 0.0-1.3 [facility] Protein [Mass/Vol] 6.8 g/dL Normal 6.0-8.0 [facility] POC VBG (EPOC) WITH FULL GOMEZ EL - [facility] 07-17-2024 BASE EXCESS, VENOUS 2.0 Normal -2.0-2.0 [facility] Comment on above: Order Comment: [facility] has implemented the eGFR calculation approach that does not have a coefficient for race that conforms to the NKF-ASN Task Force Recommendations. Specimens collected in a lithium heparin tube may show erroneous pO2, pCO2 and related calculations due to aerobic handling. If the most accurate venous blood gas results are needed, use a heparinized blood gas syringe. CALCIUM IONIZED 5.0 mg/dL Normal 4.5-5.3 [facility] Comment on above: Order Comment: [facility] has implemented the eGFR calculation approach that does not have a coefficient for race that conforms to the NKF-ASN Task Force Recommendations. Specimens collected in a lithium heparin tube may show erroneous pO2, pCO2 and related calculations due to aerobic handling. If the most accurate venous blood gas results are needed, use a heparinized blood gas syringe. Chloride [Moles/Vol] 103 mmol/L Normal 98-108 [facility] Comment on above: Order Comment: [facility] has implemented the eGFR calculation approach that does not have a coefficient for race that conforms to the NKF-ASN Task Force Recommendations. Specimens collected in a lithium heparin tube may show erroneous pO2, pCO2 and related calculations due to aerobic handling. If the most accurate venous blood gas results are needed, use a heparinized blood gas syringe. Creatinine [Mass/Vol] 0.52 mg/dL Normal 0.50-1.30 [facility] Comment on above: Order Comment: [facility] has implemented the eGFR calculation approach that does not have a coefficient for race that conforms to the NKF-ASN Task Force Recommendations. Specimens collected in a lithium heparin tube may show erroneous pO2, pCO2 and related calculations due to aerobic handling. If the most accurate venous blood gas results are needed, use a heparinized blood gas syringe. Glucose [Mass/Vol] 86 mg/dL Normal 65-99 [facility] Comment on above: Order Comment: [facility] has implemented the eGFR calculation approach that does not have a coefficient for race that conforms to the NKF-ASN Task Force Recommendations. Specimens collected in a lithium heparin tube may show erroneous pO2, pCO2 and related calculations due to aerobic handling. If the most accurate venous blood gas results are needed, use a heparinized blood gas syringe. HCO3 (Bld) [Moles/Vol] 29.6 mmol/L High 24.0-28.0 [facility] Comment on above: Order Comment: [facility] has implemented the eGFR calculation approach that does not have a coefficient for race that conforms to the NKF-ASN Task Force Recommendations. Specimens collected in a lithium heparin tube may show erroneous pO2, pCO2 and related calculations due to aerobic handling. If the most accurate venous blood gas results are needed, use a heparinized blood gas syringe. Hematocrit (Bld) [Volume fraction] 42 % Normal 41-53 [facility] Comment on above: Order Comment: [facility] has implemented the eGFR calculation approach that does not have a coefficient for race that conforms to the NKF-ASN Task Force Recommendations. Specimens collected in a lithium heparin tube may show erroneous pO2, pCO2 and related calculations due to aerobic handling. If the most accurate venous blood gas results are needed, use a heparinized blood gas syringe. HEMOGLOBIN, CALCULATED 14.2 g/dL Normal 13.5-17.5 [facility] Comment on above: Order Comment: [facility] implemented the eGFR calculation approach that does not have a coefficient for race that conforms to the NKF-ASN Task Force Recommendations. Specimens collected in a lithium heparin tube may show erroneous pO2, pCO2 and related calculations due to aerobic handling. If the most accurate venous blood gas results are needed, use a heparinized blood gas syringe. Oxygen saturation in Blood 50.0 % Normal 40.0-70.0 [facility] Comment on above: Order Comment: [facility] has implemented the eGFR calculation approach that does not have a coefficient for race that conforms to the NKF-ASN Task Force Recommendations. Specimens collected in a lithium heparin tube may show erroneous pO2, pCO2 and related calculations due to aerobic handling. If the most accurate venous blood gas results are needed, use a heparinized blood gas syringe. PCO2 VENOUS 57.8 mm Hg High 41.0-51.0 [facility] Comment on above: Order Comment: [facility] has implemented the eGFR calculation approach that does not have a coefficient for race that conforms to the NKF-ASN Task Force Recommendations. Specimens collected in a lithium heparin tube may show erroneous pO2, pCO2 and related calculations due to aerobic handling. If the most accurate venous blood gas results are needed, use a heparinized blood gas syringe. PH VENOUS 7.32 Normal 7.32-7.42 [facility] Comment on above: Order Comment: [facility] has implemented the eGFR calculation approach that does not have a coefficient for race that conforms to the NKF-ASN Task Force Recommendations. Specimens collected in a lithium heparin tube may show erroneous pO2, pCO2 and related calculations due to aerobic handling. If the most accurate venous blood gas results are needed, use a heparinized blood gas syringe. PO2 VENOUS 30 mm Hg Normal 25-40 [facility] Comment on above: Order Comment: [facility] has implemented the eGFR calculation approach that does not have a coefficient for race that conforms to the NKF-ASN Task Force Recommendations. Specimens collected in a lithium heparin tube may show erroneous pO2, pCO2 and related calculations due to aerobic handling. If the most accurate venous blood gas results are needed, use a heparinized blood gas syringe. POC GFR 121 mL/min/1.73 m2 Normal >=60 [facility] Comment on above: Order Comment: [facility] has implemented the eGFR calculation approach that does not have a coefficient for race that conforms to the NKF-ASN Task Force Recommendations. Specimens collected in a lithium heparin tube may show erroneous pO2, pCO2 and related calculations due to aerobic handling. If the most accurate venous blood gas results are needed, use a heparinized blood gas syringe. Result Comment: Renetta mated GFR was calculated using the 2020 CKD-EPI creatinine equation. POC LACTATE 1.7 mmol/L Normal 0.6-2.0 [facility] Comment on above: Order Comment: [facility] has implemented the eGFR calculation approach that does not have a coefficient for race that conforms to the NKF-ASN Task Force Recommendations. Specimens collected in a lithium heparin tube may show erroneous pO2, pCO2 and related calculations due to aerobic handling. If the most accurate venous blood gas results are needed, use a heparinized blood gas syringe. Potassium [Moles/Vol] 4.1 mmol/L Normal 3.5-5.1 [facility] Comment on above: Order Comment: [facility] has implemented the eGFR calculation approach that does not have a coefficient for race that conforms to the NKF-ASN Task Force Recommendations. Specimens collected in a lithium heparin tube may show erroneous pO2, pCO2 and related calculations due to aerobic handling. If the most accurate venous blood gas results are needed, use a heparinized blood gas syringe. Sodium [Moles/Vol] 141 mmol/L Normal 135-145 [facility] Comment on above: Order Comment: [facility] has implemented the eGFR calculation approach that does not have a coefficient for race that conforms to the NKF-ASN Task Force Recommendations. Specimens collected in a lithium heparin tube may show erroneous pO2, pCO2 and related calculations due to aerobic handling. If the most accurate venous blood gas results are needed, use a heparinized blood gas syringe. Urea nitrogen [Mass/Vol] 19 mg/dL Normal 8-25 [facility] Comment on above: Order Comment: [facility] has implemented the eGFR calculation approach that does not have a coefficient for race that conforms to the NKF-ASN Task Force Recommendations. Specimens collected in a lithium heparin tube may show erroneous pO2, pCO2 and related calculations due to aerobic handling. If the most accurate venous blood gas results are needed, use a heparinized blood gas syringe. Basic metabolic 2000 panelon 07-02-2024 Anion gap [Moles/Vol] 12 mmol/L Normal 10-20 [facility] Comment on above: Performed By: #### 2 4321-2 #### SUZANNA BECKER ([id number]) [facility] ([facility]) [facility] [place] [address] Calcium [Mass/Vol] 8.9 mg/dL Normal 8.6-10.3 [place] Comment on above: Performed By: #### 2 4321-2 #### SUZANNA BECKER ([id number]) [facility] ([facility]) [address] [place] [address] Chloride [Moles/Vol] 108 mmol/L High 98-107 [facility] Comment on above: Performed By: #### 2 4321-2 #### SUZANNA BECKER ([id number]) [facility] ([facility]) [facility] [place] [address] CO2 [Moles/Vol] 26 mmol/L Normal 21-32 [facility] Comment on above: Performed By: #### 2 4321-2 #### SUZANNA BECKER ([id number]) [facility]) [facility] [place] [address] Creatinine [Mass/Vol] 0.44 mg/dL Low 0.50-1.30 [facility] Comment on above: Performed By: #### 2 4321-2 #### SUAZNNA BECKER ([id number]) [facility] ([facility]) [address] [place] [address] GFR/1.73 sq M.predicted MDRD (S/P/Bld) [Vol rate/Area] mL/min/{1.73_m2} Normal >60 [facility] Comment on above: Result Comment: Calc ulations of estimated GFR are performed using the 2020 CKD-EPI Study Refit equation without the race variable for the IDMS-Traceable creatinine methods. https://jasn.asnjournals.org/content//ASN.20 31117573 Performed By: #### 2 4321-2 #### SUZANNA BECKER ([id number]) [facility] ([facility]) [address] [place] [address] Glucose [Mass/Vol] 95 mg/dL Normal 74-99 [place] Comment on above: Performed By: #### 2 4321-2 #### SUZANNA BECKER ([id number]) [facility] ([facility]) [address] [place] [address] Potassium [Moles/Vol] 4.6 mmol/L Normal 3.5-5.3 [facility] Comment on above: Result Comment: MILD HEMOLYSIS DETECTED. The result may be falsely elevated due to hemolysis or other interferents. Clinical correlation is recommended. Repeat testing may be considered. Performed By: #### 2 4321-2 #### SUZANNA BECKER ([id number]) [facility] ([facility]) [address] [place] [address] Sodium [Moles/Vol] 141 mmol/L Normal 136-145 [place] Comment on above: Performed By: #### 2 4321-2 #### SUZANNA BECKER ([id number]) [facility] ([facility]) [address] [place] [address] Urea nitrogen [Mass/Vol] 25 mg/dL High 6-23 [facility] Comment on above: Performed By: #### 2 4321-2 #### SUZNANA BECKER ([id number]) [facility] ([facility]) [address] [place], [place] [address] CBC panel Auto (Bld)on 07-02 Erythrocyte distribution width (RBC) [Ratio] 12.5 % Normal 11.5-14.5 [facility] Comment on above: Performed By: #### 5 8410-2 #### SUZANNA BECKER ([id number]) [facility] ([facility]) [address] [place], [place] [address] Hematocrit (Bld) [Volume fraction] 40.5 % Low 41.0-52.0 [facility] Comment on above: Performed By: #### 5 8410-2 #### SUZANNA BECKER ([id number]) [facility] ([facility]) [address] [place] [address] Hemoglobin (Bld) [Mass/Vol] 13.4 g/dL Low 13.5-17.5 [facility] Comment on above: Performed By: #### 5 8410-2 #### SUZANNA BECKER ([id number]) [facility]) [address] [place] [address] MCH (RBC) [Entitic mass] 30.5 pg Normal 26.0-34.0 [facility] Comment on above: Performed By: #### 5 8410-2 #### SUZANNA BECKER ([id number]) [facility]) [address] [place] [address] 42717 MCHC (RBC) [Mass/Vol] 33.1 g/dL Normal 32.0-36.0 [facility] Comment on above: Performed By: #### 5 8410-2 #### SUZANNA BECKER ([id number]) [facility]) [address] [place] [address]38 MCV (RBC) [Entitic vol] 92 fL Normal 80-100 [facility] Comment on above: Performed By: #### 5 8410-2 #### SUZANNA BECKER ([id number]) [facility]) [address] [place] [address] 60[address] Nucleated RBC/100 WBC (Bld) [Ratio] 0.0 /100 WBCs Normal 0.0-0.0 [facility] Comment on above: Performed By: #### 5 8410-2 #### SUZANNA BECKER ([id number]) [facility]) [address] [place] [address]29[address] Platelets (Bld) [#/Vol] 454 x10*3/uL High 150-450 [facility] Comment on above: Performed By: #### 5 8410-2 #### SUZANNA BECKER ([id number]) [facility]) [address] [place] [address] 35977 RBC (Bld) [#/Vol] 4.39 x10*6/uL Low 4.50-5.90 [facility] Comment on above: Performed By: #### 5 8410-2 #### SUZANNA BECKER ([id number]) [facility]) [address] [place] [address] WBC (Bld) [#/Vol] 7.8 x10*3/uL Normal 4.4-11.3 [facility] Comment on above: Performed By: #### 5 8410-2 #### SUZANNA BECKER ([id number]) [facility]) [address] [place] [address] BASIC METABOLIC PANELon 12-0 Anion gap [Moles/Vol] 13 mmol/L Normal 10-20 [facility] Comment on above: Order Comment: New P EG tube placed 06/18, pt has since removed the tube. Eval for perforation. Injury/Trauma or Illness?:Illness/Other How long have you had these symptoms (acute/chronic)?:Acute Reason for exam?:post peg tube placement on 06/18. patient pulled peg. Eval for possible perforation. diffuse abdominal pain Type of Exam?:Initial Additional signs and symptoms?:. Performed By: #### 4 6124 #### LAB [address] [place] [address] Alpesh Yee M.D. [id number] Calcium [Mass/Vol] 8.0 mg/dL Low 8.4-10.2 [facility] Comment on above: Order Comment: New P EG tube placed 06/18, pt has since removed the tube. Eval for perforation. Injury/Trauma or Illness?:Illness/Other How long have you had these symptoms (acute/chronic)?:Acute Reason for exam?:post peg tube placement on 06/18. patient pulled peg. Eval for possible perforation. diffuse abdominal pain Type of Exam?:Initial Additional signs and symptoms?:. Performed By: #### 4 6124 ####[facility] [address] [place], [place] [address] Alpesh Yee M.D. [id number] Chloride [Moles/Vol] 103 mmol/L Normal 98-108 [facility] Comment on above: Order Comment: New P EG tube placed 06/18, pt has since removed the tube. Eval for perforation. Injury/Trauma or Illness?:Illness/Other How long have you had these symptoms (acute/chronic)?:Acute Reason for exam?:post peg tube placement on 06/18. patient pulled peg. Eval for possible perforation. diffuse abdominal pain Type of Exam?:Initial Additional signs and symptoms?:. Performed By: #### 4 6116 #### [facility] [address] [place], [place] [address] Alpesh Yee M.D. [id number] Creatinine [Mass/Vol] 0.46 mg/dL Low 0.50-1.30 [facility] Comment on above: Order Comment: New P EG tube placed 06/18, pt has since removed the tube. Eval for perforation. Injury/Trauma or Illness?:Illness/Other How long have you had these symptoms (acute/chronic)?:Acute Reason for exam?:post peg tube placement on 06/18. patient pulled peg. Eval for possible perforation. diffuse abdominal pain Type of Exam?:Initial Additional signs and symptoms?:. Performed By: #### 4 6137 #### [facility] [address] [place], [place] [address] Alpesh Yee M.D. [id number] EGFR 125 mL/min/1.73 m2 Normal >=60 [facility] Comment on above: Order Comment: New P EG tube placed 06/18, pt has since removed the tube. Eval for perforation. Injury/Trauma or Illness?:Illness/Other How long have you had these symptoms (acute/chronic)?:Acute Reason for exam?:post peg tube placement on 06/18. patient pulled peg. Eval for possible perforation. diffuse abdominal pain Type of Exam?:Initial Additional signs and symptoms?:. Result Comment: Renetta mated GFR was calculated using the 2020 CKD-EPI creatinine equation. Performed By: #### 4 6114 #### [facility] [address] [place], [place] [address] Alpesh Yee M.D. [id number] Glucose [Mass/Vol] 135 mg/dL High 65-99 [facility] Comment on above: Order Comment: New P EG tube placed 06/18, pt has since removed the tube. Eval for perforation. Injury/Trauma or Illness?:Illness/Other How long have you had these symptoms (acute/chronic)?:Acute Reason for exam?:post peg tube placement on 06/18. patient pulled peg. Eval for possible perforation. diffuse abdominal pain Type of Exam?:Initial Additional signs and symptoms?:. Performed By: #### 4 6127 #### [facility] [address] [place] [address] Alpesh Yee M.D. [id number] HCO3 (Bld) [Moles/Vol] 26 mmol/L Normal 21-32 [facility] Comment on above: Order Comment: New P EG tube placed 06/18, pt has since removed the tube. Eval for perforation. Injury/Trauma or Illness?:Illness/Other How long have you had these symptoms (acute/chronic)?:Acute Reason for exam?:post peg tube placement on 06/18. patient pulled peg. Eval for possible perforation. diffuse abdominal pain Type of Exam?:Initial Additional signs and symptoms?:. Performed By: #### 4 6112 #### [facility] [address] [place] [address] Alpesh Yee M.D. [id number] Potassium [Moles/Vol] 3.9 mmol/L Normal 3.5-5.1 [facility] Comment on above: Order Comment: New P EG tube placed 06/18, pt has since removed the tube. Eval for perforation. Injury/Trauma or Illness?:Illness/Other How long have you had these symptoms (acute/chronic)?:Acute Reason for exam?:post peg tube placement on 06/18. patient pulled peg. Eval for possible perforation. diffuse abdominal pain Type of Exam?:Initial Additional signs and symptoms?:. Performed By: #### 4 6129 #### [facility] [address] [place] [address] Alpesh Yee M.D. [id number] Sodium [Moles/Vol] 138 mmol/L Normal 135-145 [facility] Comment on above: Order Comment: New P EG tube placed 06/18, pt has since removed the tube. Eval for perforation. Injury/Trauma or Illness?:Illness/Other How long have you had these symptoms (acute/chronic)?:Acute Reason for exam?:post peg tube placement on 06/18. patient pulled peg. Eval for possible perforation. diffuse abdominal pain Type of Exam?:Initial Additional signs and symptoms?:. Performed By: #### 4 6122 #### [facility] [address] [place], [place] [address] Alpesh Yee M.D. [id number] Urea nitrogen [Mass/Vol] 16 mg/dL Normal 8- [facility] Comment on above: Order Comment: New P EG tube placed 06/18, pt has since removed the tube. Eval for perforation. Injury/Trauma or Illness?:Illness/Other How long have you had these symptoms (acute/chronic)?:Acute Reason for exam?:post peg tube placement on 06/18. patient pulled peg. Eval for possible perforation. diffuse abdominal pain Type of Exam?:Initial Additional signs and symptoms?:. Performed By: #### 4 6186 #### [facility] [address] [place], [place] [address] Alpesh Yee M.D. [id number] Urea nitrogen/Creatinine [Mass ratio] 34.8 mg/mg High 10.0-20.0 [facility] Comment on above: Order Comment: New P EG tube placed 06/18, pt has since removed the tube. Eval for perforation. Injury/Trauma or Illness?:Illness/Other How long have you had these symptoms (acute/chronic)?:Acute Reason for exam?:post peg tube placement on 06/18. patient pulled peg. Eval for possible perforation. diffuse abdominal pain Type of Exam?:Initial Additional signs and symptoms?:. Performed By: #### 4 6171 #### [facility] [address] [place], [place] [address] Alpesh Yee M.D. [id number] Basic metabolic 2000 panelon 06-27-2024 Anion gap [Moles/Vol] 13 mmol/L 10 - 2 0 mmol/L [facility] Calcium [Mass/Vol] 8 mg/dL Low 8.4 - 10. 2 mg/dL [facility] Chloride [Moles/Vol] 103 mmol/L 98 - 10 8 mmol/L [facility] Creatinine [Mass/Vol] 0.46 mg/dL Low 0.50 - 1.30 mg/dL [facility] GFR/1.73 sq M.predicted CKD-EPI (S/P/Bld) [Vol rate/Area] 125 - PINF [facility] Glucose [Mass/Vol] 135 mg/dL High 65 - 99 mg/dL [facility] oHeal HCO3 [Moles/Vol] 26 mmol/L 21 - 32 mmol/L [facility] Interpretation and review of laboratory results Abnormal [facility] Potassium [Moles/Vol] 3.9 mmol/L 3.5 - 5.1 mmol/L [facility] Sodium [Moles/Vol] 138 mmol/L 135 - 145 mmol/L [facility] Urea nitrogen [Mass/Vol] 16 mg/dL 8 - 25 mg/d L [facility] Urea nitrogen/Creatinine [Mass ratio] 34.8 mg/mg High 10.0 - 20.0 [facility] CBCon 06-27-2024 AUTO NRBC 0.0 % Normal [facility] Comment on above: Performed By: #### 4 4014 #### [facility] [address] [place] [address] Alpesh Yee M.D. [id number] AUTO NRBC ABS COUNT 0.00 K/mcL Normal 0.00-0.00 [facility] Comment on above: Performed By: #### 4 4014 #### [facility] [address] [place] [address] Alpesh Yee M.D. [id number] Erythrocyte distribution width (RBC) [Ratio] 12.6 % Normal 11.6-14.8 [facility] Comment on above: Performed By: #### 4 4014 #### [facility] [address] [place] [id number] Alpesh Yee M.D. [id number] Hematocrit (Bld) [Volume fraction] 37.4 % Low 41.0-53.0 [facility] Comment on above: Performed By: #### 4 4014 #### [facility] [address] [place] [address] Alpesh Yee M.D. [id number] Hemoglobin (Bld) [Mass/Vol] 12.7 g/dL Low 13.5-17.5 [facility] Comment on above: Performed By: #### 4 4014 #### [facility] [address] [place] [address] Alpesh Yee M.D. [id number] MCH (RBC) [Entitic mass] 30.7 pg Normal 26.0-34.0 [facility] Comment on above: Performed By: #### 4 4014 #### [facility] [address] [place] [address] Alpesh Yee M.D. [id number] MCV (RBC) [Entitic vol] 90.3 fL Normal 80.0-100.0 [facility] Comment on above: Performed By: #### 4 4014 #### [facility] [address] [place] [address] Alpesh Yee M.D. [id number] MEAN CORPUSCULAR HEMOGLOBIN CONC 34.0 g/dL Normal 31.0-37.0 [facility] Comment on above: Performed By: #### 4 4014 #### [facility] [address] [place] [address] Alpesh Yee M.D. [id number] Platelet mean volume (Bld) [Entitic vol] 10.7 fL Normal 9.4-12.4 [facility] Comment on above: Performed By: #### 4 4014 #### [facility] [address] [place] [address] Alpesh Yee M.D. [id number] Platelets (Bld) [#/Vol] 240 10*3/uL Normal 150-400 [facility] Comment on above: Performed By: #### 4 4014 #### [facility] [address] [place] [address] Alpesh Yee M.D. [id number] RBC (Bld) [#/Vol] 4.14 10*6/uL Low 4.50-5.90 [facility] Comment on above: Performed By: #### 4 4014 #### [facility] [address] [place] [address] Alpesh Yee M.D. [id number] WBC (Bld) [#/Vol] 6.45 10*3/uL Normal 4.50-11.00 [facility] Comment on above: Performed By: #### 4 4014 #### [facility] [address] [place], [place] [address] Alpesh Yee M.D. [id number] CBC panel Auto (Bld)on 06-27 Erythrocyte distribution width (RBC) [Entitic vol] 12.6 % 11.6 - 14.8 % [facility] Hematocrit (Bld) [Volume fraction] 37.4 % Low 41.0 - 53.0 % [facility] Hemoglobin (Bld) [Mass/Vol] 12.7 g/dL Low 13.5 - 17.5 g/dL [facility] Interpretation and review of laboratory results Abnormal [facility] MCH (RBC) [Entitic mass] 30.7 pg 26. 0 - 34.0 pg [facility] MCHC (RBC) [Mass/Vol] 34 g/dL 31.0 - 37.0 g/dL [facility] MCV (RBC) [Entitic vol] 90.3 fL 80.0 - 100.0 fL [facility] Nucleated RBC (Bld) [#/Vol] 0 10*3/uL [facility] Nucleated RBC/100 WBC (Bld) [Ratio] 0 % [facility] Platelet mean volume (Bld) [Entitic vol] 10.7 fL 9.4 - 12.4 fL [facility] Platelets (Bld) [#/Vol] 240 10*3/uL [facility] RBC (Bld) [#/Vol] 4.14 10*6/uL Low [facility] WBC (Bld) [#/Vol] 6.45 10*3/uL [facility] Glucose (Bld) [Mass/Vol]on 1 08-28-2023 Glucose [Mass/Vol] 96 mg/dL 65 - 99 mg/dL [facility] Interpretation and review of laboratory results Normal [facility] Glucose [Mass/Vol] 105 mg/dL High 65 - 99 mg/dL [facility] Interpretation and review of laboratory results Abnormal [facility] Glucose [Mass/Vol] 141 mg/dL High 65 - 99 mg/dL [facility] Interpretation and review of laboratory results Abnormal [facility] POC GLUCOSE - [facility] 024 Glucose [Mass/Vol] 96 mg/dL Normal 65-99 [facility] Comment on above: Performed By: #### 4 4014 #### LAB [address] [place], [place] [address] Alpesh Yee M.D. [id number] Glucose [Mass/Vol] 105 mg/dL High 65-99 [facility] Comment on above: Performed By: #### 4 4014 #### [facility] [address] [place] [address] Alpesh Yee M.D. [id number] Glucose [Mass/Vol] 141 mg/dL High 65-99 [facility] Comment on above: Performed By: #### 4 4014 #### LAB [address] [place] [address] Alpesh Yee M.D. [id number] BASIC METABOLIC PANELon 12-0 Anion gap [Moles/Vol] 13 mmol/L Normal 10-20 [facility] Comment on above: Order Comment: Draw before administering any antibiotics. Performed By: #### 4 4014 #### LAB [address] [place] [address] Alpesh Yee M.D. [id number] Calcium [Mass/Vol] 8.3 mg/dL Low 8.4-10.2 [facility] Comment on above: Order Comment: Draw before administering any antibiotics. Performed By: #### 4 4014 #### LAB [address] [place] [id number] Alpesh Yee M.D. [id number] Chloride [Moles/Vol] 103 mmol/L Normal 98-108 [facility] Comment on above: Order Comment: Draw before administering any antibiotics. Performed By: #### 4 4014 #### LAB [address] [place] [address] Alpesh Yee M.D. [id number] Creatinine [Mass/Vol] 0.40 mg/dL Low 0.50-1.30 [facility] Comment on above: Order Comment: Draw before administering any antibiotics. Performed By: #### 4 4014 #### LAB [address] [place] [address] Alpesh Yee M.D. [id number] EGFR 130 mL/min/1.73 m2 Normal >=60 [facility] Comment on above: Order Comment: Draw before administering any antibiotics. Result Comment: Renetta mated GFR was calculated using the 2020 CKD-EPI creatinine equation. Performed By: #### 4 4014 #### LAB [address] [place] [address] Alpesh Yee M.D. [id number] Glucose [Mass/Vol] 106 mg/dL High 65-99 [facility] Comment on above: Order Comment: Draw before administering any antibiotics. Performed By: #### 4 4014 #### LAB [address] [place] [address] Alpesh Yee M.D. [id number] HCO3 (Bld) [Moles/Vol] 25 mmol/L Normal 21-32 [facility] Comment on above: Order Comment: Draw before administering any antibiotics. Performed By: #### 4 4014 #### [facility] [address] [place] [address] Alpesh Yee M.D. [id number] Potassium [Moles/Vol] 4.2 mmol/L Normal 3.5-5.1 [facility] Comment on above: Order Comment: Draw before administering any antibiotics. Result Comment: Slig htly Hemolyzed Performed By: #### 4 4014 #### [facility] LAB [address] [place] [address] Alpesh Yee M.D. [id number] Sodium [Moles/Vol] 137 mmol/L Normal 135-145 [facility] Comment on above: Order Comment: Draw before administering any antibiotics. Performed By: #### 4 4014 #### LAB [address] [place] [address] Alpesh Yee M.D. [id number] Urea nitrogen [Mass/Vol] 16 mg/dL Normal 8-25 [facility] Comment on above: Order Comment: Draw before administering any antibiotics. Performed By: #### 4 4014 #### LAB [address] [place], [place] [address] Alpesh Yee M.D. [id number] Urea nitrogen/Creatinine [Mass ratio] 40.0 mg/mg High 10.0-20.0 [facility] Comment on above: Order Comment: Draw before administering any antibiotics. Performed By: #### 4 4014 #### LAB [address] [place] [address] Alpesh Yee M.D. [id number] Basic metabolic 2000 panelon 06-26-2024 Anion gap [Moles/Vol] 13 mmol/L 10 - 2 0 mmol/L [facility] Calcium [Mass/Vol] 8.3 mg/dL Low 8.4 - 10. 2 mg/dL [facility] Chloride [Moles/Vol] 103 mmol/L 98 - 10 8 mmol/L [facility] Creatinine [Mass/Vol] 0.4 mg/dL Low 0.50 - 1.30 mg/dL [facility] GFR/1.73 sq M.predicted CKD-EPI (S/P/Bld) [Vol rate/Area] 130 - PINF [facility] Glucose [Mass/Vol] 106 mg/dL High 65 - 99 mg/dL [facility] HCO3 [Moles/Vol] 25 mmol/L 21 - 32 mmol/L [facility] Interpretation and review of laboratory results Abnormal [facility] Potassium [Moles/Vol] 4.2 mmol/L 3.5 - 5.1 mmol/L [facility] Sodium [Moles/Vol] 137 mmol/L 135 - 145 mmol/L [facility] Urea nitrogen [Mass/Vol] 16 mg/dL 8 - 25 mg/d L [facility] Urea nitrogen/Creatinine [Mass ratio] 40 mg/mg High 10.0 - 20.0 [facility] CBCon 06-26-2024 AUTO NRBC 0.0 % Normal [facility] Comment on above: Performed By: #### 4 4014 #### LAB [address] [place], [place] [address] Alpesh Yee M.D. [id number] AUTO NRBC ABS COUNT 0.00 K/mcL Normal 0.00-0.00 [facility] Comment on above: Performed By: #### 4 4014 #### LAB [address] [place] [address] Alpesh Yee M.D. [id number] Erythrocyte distribution width (RBC) [Ratio] 12.4 % Normal 11.6-14.8 [facility] Comment on above: Performed By: #### 4 4014 #### LAB [address] [place] [address] Alpesh Yee M.D. [id number] Hematocrit (Bld) [Volume fraction] 38.3 % Low 41.0-53.0 [facility] Comment on above: Performed By: #### 4 4014 #### LAB [address] [place] [address] Alpesh Yee M.D. [id number] Hemoglobin (Bld) [Mass/Vol] 12.7 g/dL Low 13.5-17.5 [facility] Comment on above: Performed By: #### 4 4014 #### [facility] LAB [address] [place] [address] Alpesh Yee M.D. [id number] MCH (RBC) [Entitic mass] 30.5 pg Normal 26.0-34.0 [facility] Comment on above: Performed By: #### 4 4014 #### LAB [address] [place] [address] Alpesh Yee M.D. [id number] MCV (RBC) [Entitic vol] 92.1 fL Normal 80.0-100.0 [facility] Comment on above: Performed By: #### 4 4014 #### LAB [address] [place] [address] Alpesh Yee M.D. [id number] MEAN CORPUSCULAR HEMOGLOBIN CONC 33.2 g/dL Normal 31.0-37.0 [facility] Comment on above: Performed By: #### 4 4014 #### [facility] LAB [address] [place] [address] Alpesh Yee M.D. [id number] Platelet mean volume (Bld) [Entitic vol] 11.0 fL Normal 9.4-12.4 [facility] Comment on above: Performed By: #### 4 4014 #### LAB [address] [place] [address] Alpesh Yee M.D. [id number] Platelets (Bld) [#/Vol] 269 10*3/uL Normal 150-400 [facility] Comment on above: Performed By: #### 4 4014 #### LAB [address] [place] [address] Alpesh Yee M.D. [id number] RBC (Bld) [#/Vol] 4.16 10*6/uL Low 4.50-5.90 [facility] Comment on above: Performed By: #### 4 4014 #### LAB [address] [place] [address] Alpesh Yee M.D. [id number] WBC (Bld) [#/Vol] 9.31 10*3/uL Normal 4.50-11.00 [facility] Comment on above: Performed By: #### 4 4014 #### LAB [address] [place] [address] Alpesh Yee M.D. [id number] AUTO NRBC 0.0 % Normal [facility] Comment on above: Performed By: #### 4 [id number] #### LAB [address] [place] [address] Alpesh Yee M.D. [id number] AUTO NRBC ABS COUNT 0.00 K/mcL Normal 0.00-0.00 [facility] Comment on above: Performed By: #### 4 [id number] #### LAB [address] [place] [address] Alpesh Yee M.D. [id number] Erythrocyte distribution width (RBC) [Ratio] 12.3 % Normal 11.6-14.8 [facility] Comment on above: Performed By: #### 4 5218 #### LAB [address] [place] [address] Alpesh Yee M.D. [id number] Hematocrit (Bld) [Volume fraction] 37.2 % Low 41.0-53.0 [facility] Comment on above: Performed By: #### 4 [id number] #### LAB [address] [place] [address] Alpesh Yee M.D. [id number] Hemoglobin (Bld) [Mass/Vol] 12.4 g/dL Low 13.5-17.5 [facility] Comment on above: Performed By: #### 4 [id number] #### LAB [address] [place] [address] Alpesh Yee M.D. [id number] MCH (RBC) [Entitic mass] 30.6 pg Normal 26.0-34.0 [facility] Comment on above: Performed By: #### 4 [id number] #### LAB [address] [place] [address] Alpesh Yee M.D. [id number] MCV (RBC) [Entitic vol] 91.9 fL Normal 80.0-100.0 [facility] Comment on above: Performed By: #### 4 [id number] #### LAB [address] [place] [address] Alpesh Yee M.D. [id number] MEAN CORPUSCULAR HEMOGLOBIN CONC 33.3 g/dL Normal 31.0-37.0 [facility] Comment on above: Performed By: #### 4 [id number] #### LAB [address] [place] [address] Alpesh Yee M.D. [id number] Platelet mean volume (Bld) [Entitic vol] 11.1 fL Normal 9.4-12.4 [facility] Comment on above: Performed By: #### 4 [id number] #### LAB [address] [place] [address] Alpesh Yee M.D. [id number] Platelets (Bld) [#/Vol] 231 10*3/uL Normal 150-400 [facility] Comment on above: Performed By: #### 4 5218 ####[facility] LAB [address] [place], [place] [address] Alpesh Yee M.D. [id number] RBC (Bld) [#/Vol] 4.05 10*6/uL Low 4.50-5.90 [facility] Comment on above: Performed By: #### 4 [id number] #### LAB [address] [place], [place] [address] Alpesh Yee M.D. [id number] WBC (Bld) [#/Vol] 7.51 10*3/uL Normal 4.50-11.00 [facility] Comment on above: Performed By: #### 4 [id number] #### LAB [address] [place], [place] [address] Alpesh Yee M.D. [id number] CBC panel Auto (Bld)on 06-26 Erythrocyte distribution width (RBC) [Entitic vol] 12.4 % 11.6 - 14.8 % [facility] Hematocrit (Bld) [Volume fraction] 38.3 % Low 41.0 - 53.0 % [facility] Hemoglobin (Bld) [Mass/Vol] 12.7 g/dL Low 13.5 - 17.5 g/dL [facility] Interpretation and review of laboratory results Abnormal [facility] MCH (RBC) [Entitic mass] 30.5 pg 26. 0 - 34.0 pg [facility] MCHC (RBC) [Mass/Vol] 33.2 g/dL 31.0 - 37.0 g/dL [facility] MCV (RBC) [Entitic vol] 92.1 fL 80.0 - 100.0 fL [facility] Nucleated RBC (Bld) [#/Vol] 0 10*3/uL [facility] Nucleated RBC/100 WBC (Bld) [Ratio] 0 % [facility] Platelet mean volume (Bld) [Entitic vol] 11 fL 9.4 - 12.4 fL [facility] Platelets (Bld) [#/Vol] 269 10*3/uL [facility] RBC (Bld) [#/Vol] 4.16 10*6/uL Low [facility] WBC (Bld) [#/Vol] 9.31 10*3/uL [facility] Erythrocyte distribution width (RBC) [Entitic vol] 12.3 % 11.6 - 14.8 % [facility] Hematocrit (Bld) [Volume fraction] 37.2 % Low 41.0 - 53.0 % [facility] Hemoglobin (Bld) [Mass/Vol] 12.4 g/dL Low 13.5 - 17.5 g/dL [facility] Interpretation and review of laboratory results Abnormal [facility] MCH (RBC) [Entitic mass] 30.6 pg 26. 0 - 34.0 pg [facility] MCHC (RBC) [Mass/Vol] 33.3 g/dL 31.0 - 37.0 g/dL [facility] MCV (RBC) [Entitic vol] 91.9 fL 80.0 - 100.0 fL [facility] Nucleated RBC (Bld) [#/Vol] 0 10*3/uL [facility] Nucleated RBC/100 WBC (Bld) [Ratio] 0 % [facility] Platelet mean volume (Bld) [Entitic vol] 11.1 fL 9.4 - 12.4 fL [facility] Platelets (Bld) [#/Vol] 231 10*3/uL [facility] RBC (Bld) [#/Vol] 4.05 10*6/uL Low [facility] WBC (Bld) [#/Vol] 7.51 10*3/uL [facility] Glucose (Bld) [Mass/Vol]on 08-27-2023 Glucose [Mass/Vol] 102 mg/dL High 65 - 99 mg/dL [facility] Interpretation and review of laboratory results Abnormal [facility] Glucose [Mass/Vol] 106 mg/dL High 65 - 99 mg/dL [facility] Interpretation and review of laboratory results Abnormal [facility] Glucose [Mass/Vol] 124 mg/dL High 65 - 99 mg/dL [facility] Interpretation and review of laboratory results Abnormal [facility] Glucose [Mass/Vol] 113 mg/dL High 65 - 99 mg/dL [facility] Interpretation and review of laboratory results Abnormal [facility] Glucose [Mass/Vol] 110 mg/dL High 65 - 99 mg/dL [facility] Interpretation and review of laboratory results Abnormal [facility] Glucose [Mass/Vol] 99 mg/dL 65 - 99 mg/dL [facility] Interpretation and review of laboratory results Normal [facility] MAGNESIUM LEVELon 06-26-2024 Magnesium [Mass/Vol] 2.0 mg/dL Normal 1.6-2.4 [facility] Comment on above: Performed By: #### 4 6109 ####[facility] LAB [address] [place], [place] [address] Alpesh Yee M.D. [id number] Magnesium Levelon 06-26-2024 Magnesium [Mass/Vol] 2 mg/dL 1.6 - 2 .4 mg/dL [facility] No Panel Informationon 06-26 Interpretation and review of laboratory results Normal [facility] PHOSPHORUSon 06-26-2024 Phosphate [Mass/Vol] 3.8 mg/dL Normal 2.7-4.5 [facility] Comment on above: Performed By: #### 4 7222 #### [facility] LAB [address] [place], [place] [address] Alpesh Yee M.D. [id number] POC GLUCOSE - [facility] 024 Glucose [Mass/Vol] 102 mg/dL [address] Comment on above: Performed By: #### 4 4014 #### [facility] LAB [address] [place] [address] Alpesh Yee M.D. [id number] Glucose [Mass/Vol] 106 mg/dL [address] Comment on above: Performed By: #### 4 4014 #### [facility] LAB [address] [place] [id number] Alpesh Yee M.D. [id number] Glucose [Mass/Vol] 124 mg/dL [address] Comment on above: Performed By: #### 4 4014 #### [facility] LAB [address] [place] [id number] Alpesh Yee M.D. [id number] Glucose [Mass/Vol] 113 mg/dL [address] Comment on above: Performed By: #### 4 4014 #### [facility] LAB [address] [place] [id number] Alpesh Yee M.D. [id number] Glucose [Mass/Vol] 110 mg/dL High 65-99 [facility] Comment on above: Performed By: #### 4 4014 #### LAB [address] [place] [address] Alpesh Yee M.D. [id number] Glucose [Mass/Vol] 99 mg/dL Normal 65-99 [facility] Comment on above: Performed By: #### 4 4014 #### LAB [address] [place] [address] Alpesh Yee M.D. [id number] Phosphoruson 06-26-2024 Phosphate [Mass/Vol] 3.8 mg/dL 2.7 - 4 .5 mg/dL [facility] Bacteria identified Cx Nom ( Bld)on 06-25-2024 Interpretation and review of laboratory results Normal [facility] CALCIUM, IONIZEDon CALCIUM IONIZED 4.9 mg/dL Normal 4.5-5.3 [facility] Comment on above: Performed By: #### 4 5190 #### LAB [address] [place] [address] Alpesh Yee M.D. [id number] CBCon 06-25-2024 AUTO NRBC 0.0 % Normal [facility] Comment on above: Performed By: #### 4 [id number] #### LAB [address] [place] [address] Alpesh Yee M.D. [id number] AUTO NRBC ABS COUNT 0.00 K/mcL Normal 0.00-0.00 [facility] Comment on above: Performed By: #### 4 [id number] #### LAB [address] [place] [address] Alpesh Yee M.D. [id number] Erythrocyte distribution width (RBC) [Ratio] 12.2 % Normal 11.6-14.8 [facility] Comment on above: Performed By: #### 4 [id number] #### LAB [address] [place] [address] Alpesh Yee M.D. [id number] Hematocrit (Bld) [Volume fraction] 38.0 % Low 41.0-53.0 [facility] Comment on above: Performed By: #### 4 5218 #### LAB [address] [place] [address] Alpesh Yee M.D. [id number] Hemoglobin (Bld) [Mass/Vol] 12.8 g/dL Low 13.5-17.5 [facility] Comment on above: Performed By: #### 4 [id number] #### LAB [address] [place] [address] Alpesh Yee M.D. [id number] MCH (RBC) [Entitic mass] 30.4 pg Normal 26.0-34.0 [facility] Comment on above: Performed By: #### 4 [id number] #### LAB [address] [place] [address] Alpesh Yee M.D. [id number] MCV (RBC) [Entitic vol] 90.3 fL Normal 80.0-100.0 [facility] Comment on above: Performed By: #### 4 [id number] #### LAB [address] [place] [address] Alpesh Yee M.D. [id number] MEAN CORPUSCULAR HEMOGLOBIN CONC 33.7 g/dL Normal 31.0-37.0 [facility] Comment on above: Performed By: #### 4 5218 #### LAB [address] [place] [address] Alpesh Yee M.D. [id number] Platelet mean volume (Bld) [Entitic vol] 11.0 fL Normal 9.4-12.4 [facility] Comment on above: Performed By: #### 4 [id number] #### LAB [address] [place] [address] Alpesh Yee M.D. [id number] Platelets (Bld) [#/Vol] 248 10*3/uL Normal 150-400 [facility] Comment on above: Performed By: #### 4 [id number] #### LAB [address] [place] [address] Alpesh Yee M.D. [id number] RBC (Bld) [#/Vol] 4.21 10*6/uL Low 4.50-5.90 [facility] Comment on above: Performed By: #### 4 [id number] #### LAB [address] [place] [address] Alpesh Yee M.D. [id number] WBC (Bld) [#/Vol] 8.15 10*3/uL Normal 4.50-11.00 [facility] Comment on above: Performed By: #### 4 [id number] #### LAB [address] [place] [address] Alpesh Yee M.D. [id number] AUTO NRBC 0.0 % Normal [facility] Comment on above: Performed By: #### 4 5218 #### LAB [address] [place] [address] Alpesh Yee M.D. [id number] AUTO NRBC ABS COUNT 0.00 K/mcL Normal 0.00-0.00 [facility] Comment on above: Performed By: #### 4 [id number] #### LAB [address] [place] [address] Alpesh Yee M.D. [id number] Erythrocyte distribution width (RBC) [Ratio] 12.2 % Normal 11.6-14.8 [facility] Comment on above: Performed By: #### 4 5218 #### LAB [address] [place] [address] Alpesh Yee M.D. [id number] Hematocrit (Bld) [Volume fraction] 38.9 % Low 41.0-53.0 [facility] Comment on above: Performed By: #### 4 5218 #### LAB [address] [place] [address] Alpesh Yee M.D. [id number] Hemoglobin (Bld) [Mass/Vol] 13.0 g/dL Low 13.5-17.5 [facility] Comment on above: Performed By: #### 4 5218 #### LAB [address] [place] [address] Alpesh Yee M.D. [id number] MCH (RBC) [Entitic mass] 30.2 pg Normal 26.0-34.0 [facility] Comment on above: Performed By: #### 4 5218 #### LAB [address] [place] [address] Alpesh Yee M.D. [id number] MCV (RBC) [Entitic vol] 90.5 fL Normal 80.0-100.0 [facility] Comment on above: Performed By: #### 4 5218 #### LAB [address] [place] [address] Alpesh Yee M.D. [id number] MEAN CORPUSCULAR HEMOGLOBIN CONC 33.4 g/dL Normal 31.0-37.0 [facility] Comment on above: Performed By: #### 4 5218 #### LAB [address] [place] [address] Alpesh Yee M.D. [id number] Platelet mean volume (Bld) [Entitic vol] 11.3 fL Normal 9.4-12.4 [facility] Comment on above: Performed By: #### 4 5218 #### LAB [address] [place] [address] Alpesh Yee M.D. [id number] Platelets (Bld) [#/Vol] 256 10*3/uL Normal 150-400 [facility] Comment on above: Performed By: #### 4 [id number] #### LAB [address] [place] [address] Alpesh Yee M.D. [id number] RBC (Bld) [#/Vol] 4.30 10*6/uL Low 4.50-5.90 [facility] Comment on above: Performed By: #### 4 5218 #### LAB [address] [place] [address] Alpesh Yee M.D. [id number] WBC (Bld) [#/Vol] 8.73 10*3/uL Normal 4.50-11.00 [facility] Comment on above: Performed By: #### 4 [id number] #### LAB [address] [place] [address] Alpesh Yee M.D. [id number] AUTO NRBC 0.0 % Normal [facility] Comment on above: Performed By: #### 4 4014 #### [facility] LAB [address] [place] [address] Alpesh Yee M.D. [id number] AUTO NRBC ABS COUNT 0.00 K/mcL Normal 0.00-0.00 [facility] Comment on above: Performed By: #### 4 4014 #### LAB [address] [place] [address] Alpesh Yee M.D. [id number] Erythrocyte distribution width (RBC) [Ratio] 12.1 % Normal 11.6-14.8 [facility] Comment on above: Performed By: #### 4 4014 #### LAB [address] [place] [address] Alpesh Yee M.D. [id number] Hematocrit (Bld) [Volume fraction] 36.1 % Low 41.0-53.0 [facility] Comment on above: Performed By: #### 4 4014 #### LAB [address] [place] [address] Alpesh Yee M.D. [id number] Hemoglobin (Bld) [Mass/Vol] 11.9 g/dL Low 13.5-17.5 [facility] Comment on above: Performed By: #### 4 4014 #### LAB [address] [place] [address] Alpesh Yee M.D. [id number] MCH (RBC) [Entitic mass] 30.1 pg Normal 26.0-34.0 [facility] Comment on above: Performed By: #### 4 4014 #### [facility] LAB [address] [place] [address] Alpesh Yee M.D. [id number] MCV (RBC) [Entitic vol] 91.2 fL Normal 80.0-100.0 [facility] Comment on above: Performed By: #### 4 4014 #### LAB [address] [place] [address] Alpesh Yee M.D. [id number] MEAN CORPUSCULAR HEMOGLOBIN CONC 33.0 g/dL Normal 31.0-37.0 [facility] Comment on above: Performed By: #### 4 4014 #### LAB [address] [place] [address] Alpesh Yee M.D. [id number] Platelet mean volume (Bld) [Entitic vol] 11.5 fL Normal 9.4-12.4 [facility] Comment on above: Performed By: #### 4 4014 #### LAB [address] [place] [address] Alpesh Yee M.D. [id number] Platelets (Bld) [#/Vol] 198 10*3/uL Normal 150-400 [facility] Comment on above: Performed By: #### 4 4014 #### LAB [address] [place] [address] Alpesh Yee M.D. [id number] RBC (Bld) [#/Vol] 3.96 10*6/uL Low 4.50-5.90 [facility] Comment on above: Performed By: #### 4 4014 #### LAB [address] [place] [address] Alpesh Yee M.D. [id number] WBC (Bld) [#/Vol] 8.41 10*3/uL Normal 4.50-11.00 [facility] Comment on above: Performed By: #### 4 4014 #### LAB [address] [place] [address] Alpesh Yee M.D. [id number] AUTO NRBC 0.0 % Normal [facility] Comment on above: Performed By: #### 4 6932 #### LAB [address] [place] [address] Alpesh Yee M.D. [id number] AUTO NRBC ABS COUNT 0.00 K/mcL Normal 0.00-0.00 [facility] Comment on above: Performed By: #### 4 5294 #### LAB [address] [place] [address] Alpesh Yee M.D. [id number] Erythrocyte distribution width (RBC) [Ratio] 12.3 % Normal 11.6-14.8 [facility] Comment on above: Performed By: #### 4 6755 #### LAB [address] [place] [address] Alpesh Yee M.D. [id number] Hematocrit (Bld) [Volume fraction] 35.6 % Low 41.0-53.0 [facility] Comment on above: Performed By: #### 4 0664 #### LAB [address] [place] [address] Alpesh Yee M.D. [id number] Hemoglobin (Bld) [Mass/Vol] 11.7 g/dL Low 13.5-17.5 [facility] Comment on above: Performed By: #### 4 8298 #### LAB [address] [place] [address] Alpesh Yee M.D. [id number] MCH (RBC) [Entitic mass] 30.3 pg Normal 26.0-34.0 [facility] Comment on above: Performed By: #### 4 9773 #### LAB [address] [place] [address] Alpesh Yee M.D. [id number] MCV (RBC) [Entitic vol] 92.2 fL Normal 80.0-100.0 [facility] Comment on above: Performed By: #### 4 3900 #### LAB [address] [place] [address] Alpesh Yee M.D. [id number] MEAN CORPUSCULAR HEMOGLOBIN CONC 32.9 g/dL Normal 31.0-37.0 [facility] Comment on above: Performed By: #### 4 8979 #### LAB [address] [place] [address] Alpesh Yee M.D. [id number] Platelet mean volume (Bld) [Entitic vol] 11.6 fL Normal 9.4-12.4 [facility] Comment on above: Performed By: #### 4 6932 #### LAB [address] [place] [address] Alpesh Yee M.D. [id number] Platelets (Bld) [#/Vol] 191 10*3/uL Normal 150-400 [facility] Comment on above: Performed By: #### 4 6932 #### LAB [address] [place] [address] Alpesh Yee M.D. [id number] RBC (Bld) [#/Vol] 3.86 10*6/uL Low 4.50-5.90 [facility] Comment on above: Performed By: #### 4 6932 #### LAB [address] [place] [address] Alpesh Yee M.D. [id number] WBC (Bld) [#/Vol] 8.45 10*3/uL Normal 4.50-11.00 [facility] Comment on above: Performed By: #### 4 6932 #### LAB [address] [place] [address] Alpesh Yee M.D. [id number] AUTO NRBC 0.0 % Normal [facility] Comment on above: Performed By: #### 4 [id number] #### LAB [address] [place] [address] Alpesh Yee M.D. [id number] AUTO NRBC ABS COUNT 0.00 K/mcL Normal 0.00-0.00 [facility] Comment on above: Performed By: #### 4 [id number] #### LAB [address] [place] [address] Alpesh Yee M.D. [id number] Erythrocyte distribution width (RBC) [Ratio] 12.1 % Normal 11.6-14.8 [facility] Comment on above: Performed By: #### 4 5218 #### LAB [address] [place] [address] Alpesh Yee M.D. [id number] Hematocrit (Bld) [Volume fraction] 33.7 % Low 41.0-53.0 [facility] Comment on above: Performed By: #### 4 5218 #### LAB [address] [place] [address] Alpesh Yee M.D. [id number] Hemoglobin (Bld) [Mass/Vol] 11.3 g/dL Low 13.5-17.5 [facility] Comment on above: Performed By: #### 4 [id number] #### LAB [address] [place] [address] Alpesh Yee M.D. [id number] MCH (RBC) [Entitic mass] 30.7 pg Normal 26.0-34.0 [facility] Comment on above: Performed By: #### 4 [id number] #### LAB [address] [address] Alpesh Yee M.D. [id number] MCV (RBC) [Entitic vol] 91.6 fL Normal 80.0-100.0 [facility] Comment on above: Performed By: #### 4 [id number] #### LAB [address] [address] Alpesh Yee M.D. [id number] MEAN CORPUSCULAR HEMOGLOBIN CONC 33.5 g/dL Normal 31.0-37.0 [facility] Comment on above: Performed By: #### 4 [id number] #### LAB [address] [address] Alpesh Yee M.D. [id number] Platelet mean volume (Bld) [Entitic vol] 11.5 fL Normal 9.4-12.4 [facility] Comment on above: Performed By: #### 4 [id number] #### LAB [address] [address] Alpesh Yee M.D. [id number] Platelets (Bld) [#/Vol] 176 10*3/uL Normal 150-400 [facility] Comment on above: Performed By: #### 4 [id number] #### LAB [address] [place], [place] [address] Alpesh Yee M.D. [id number] RBC (Bld) [#/Vol] 3.68 10*6/uL Low 4.50-5.90 [facility] Comment on above: Performed By: #### 4 [id number] #### LAB [address] [place], [place] [address] Alpesh Yee M.D. [id number] WBC (Bld) [#/Vol] 7.51 10*3/uL Normal 4.50-11.00 [facility] Comment on above: Performed By: #### 4 [id number] #### LAB [address] [id number] Alpesh Yee M.D. [id number] CBC panel Auto (Bld)on 06-25 Erythrocyte distribution width (RBC) [Entitic vol] 12.2 % 11.6 - 14.8 % [facility] Hematocrit (Bld) [Volume fraction] 38 % Low 41.0 - 53.0 % [facility] Hemoglobin (Bld) [Mass/Vol] 12.8 g/dL Low 13.5 - 17.5 g/dL [facility] Interpretation and review of laboratory results Abnormal [facility] MCH (RBC) [Entitic mass] 30.4 pg 26. 0 - 34.0 pg [facility] MCHC (RBC) [Mass/Vol] 33.7 g/dL 31.0 - 37.0 g/dL [facility] MCV (RBC) [Entitic vol] 90.3 fL 80.0 - 100.0 fL [facility] Nucleated RBC (Bld) [#/Vol] 0 10*3/uL [facility] Nucleated RBC/100 WBC (Bld) [Ratio] 0 % [facility] Platelet mean volume (Bld) [Entitic vol] 11 fL 9.4 - 12.4 fL [facility] Platelets (Bld) [#/Vol] 248 10*3/uL [facility] RBC (Bld) [#/Vol] 4.21 10*6/uL Low [facility] WBC (Bld) [#/Vol] 8.15 10*3/uL [facility] Erythrocyte distribution width (RBC) [Entitic vol] 12.2 % 11.6 - 14.8 % [facility] Hematocrit (Bld) [Volume fraction] 38.9 % Low 41.0 - 53.0 % [facility] Hemoglobin (Bld) [Mass/Vol] 13 g/dL Low 13.5 - 17.5 g/dL [facility] Interpretation and review of laboratory results Abnormal [facility] MCH (RBC) [Entitic mass] 30.2 pg 26. 0 - 34.0 pg [facility] MCHC (RBC) [Mass/Vol] 33.4 g/dL 31.0 - 37.0 g/dL [facility] MCV (RBC) [Entitic vol] 90.5 fL 80.0 - 100.0 fL [facility] Nucleated RBC (Bld) [#/Vol] 0 10*3/uL [facility] Nucleated RBC/100 WBC (Bld) [Ratio] 0 % [facility] Platelet mean volume (Bld) [Entitic vol] 11.3 fL 9.4 - 12.4 fL [facility] Platelets (Bld) [#/Vol] 256 10*3/uL [facility] RBC (Bld) [#/Vol] 4.3 10*6/uL Low [facility] alth WBC (Bld) [#/Vol] 8.73 10*3/uL [facility] ealth [facility] Erythrocyte distribution width (RBC) [Entitic vol] 12.1 % 11.6 - 14.8 % [facility] Hematocrit (Bld) [Volume fraction] 36.1 % Low 41.0 - 53.0 % [facility] Hemoglobin (Bld) [Mass/Vol] 11.9 g/dL Low 13.5 - 17.5 g/dL [facility] Interpretation and review of laboratory results Abnormal [facility] MCH (RBC) [Entitic mass] 30.1 pg 26. 0 - 34.0 pg [facility] MCHC (RBC) [Mass/Vol] 33 g/dL 31.0 - 37.0 g/dL [facility] MCV (RBC) [Entitic vol] 91.2 fL 80.0 - 100.0 fL [facility] Nucleated RBC (Bld) [#/Vol] 0 10*3/uL [facility] Nucleated RBC/100 WBC (Bld) [Ratio] 0 % [facility] Platelet mean volume (Bld) [Entitic vol] 11.5 fL 9.4 - 12.4 fL [facility] Platelets (Bld) [#/Vol] 198 10*3/uL [facility] RBC (Bld) [#/Vol] 3.96 10*6/uL Low [facility] WBC (Bld) [#/Vol] 8.41 10*3/uL [facility] Erythrocyte distribution width (RBC) [Entitic vol] 12.3 % 11.6 - 14.8 % [place] [facility] Hematocrit (Bld) [Volume fraction] 35.6 % Low 41.0 - 53.0 % [facility] Hemoglobin (Bld) [Mass/Vol] 11.7 g/dL Low 13.5 - 17.5 g/dL [facility] Interpretation and review of laboratory results Abnormal [facility] MCH (RBC) [Entitic mass] 30.3 pg 26. 0 - 34.0 pg [facility] MCHC (RBC) [Mass/Vol] 32.9 g/dL 31.0 - 37.0 g/dL [facility] MCV (RBC) [Entitic vol] 92.2 fL 80.0 - 100.0 fL [facility] Nucleated RBC (Bld) [#/Vol] 0 10*3/uL [facility] Nucleated RBC/100 WBC (Bld) [Ratio] 0 % [facility] Platelet mean volume (Bld) [Entitic vol] 11.6 fL 9.4 - 12.4 fL [facility] Platelets (Bld) [#/Vol] 191 10*3/uL [facility] RBC (Bld) [#/Vol] 3.86 10*6/uL Low [facility] WBC (Bld) [#/Vol] 8.45 10*3/uL [facility] Erythrocyte distribution width (RBC) [Entitic vol] 12.1 % 11.6 - 14.8 % [facility] alth Hematocrit (Bld) [Volume fraction] 33.7 % Low 41.0 - 53.0 % [facility] Hemoglobin (Bld) [Mass/Vol] 11.3 g/dL Low 13.5 - 17.5 g/dL [facility] Interpretation and review of laboratory results Abnormal [facility] MCH (RBC) [Entitic mass] 30.7 pg 26. 0 - 34.0 pg [facility] MCHC (RBC) [Mass/Vol] 33.5 g/dL 31.0 - 37.0 g/dL [facility] MCV (RBC) [Entitic vol] 91.6 fL 80.0 - 100.0 fL [facility] Nucleated RBC (Bld) [#/Vol] 0 10*3/uL [facility] Nucleated RBC/100 WBC (Bld) [Ratio] 0 % [facility] Platelet mean volume (Bld) [Entitic vol] 11.5 fL 9.4 - 12.4 fL [facility] Platelets (Bld) [#/Vol] 176 10*3/uL [facility] RBC (Bld) [#/Vol] 3.68 10*6/uL Low [facility] WBC (Bld) [#/Vol] 7.51 10*3/uL [facility] COMPREHENSIVE METABOLIC PANE Omar 06-25-2024 Albumin [Mass/Vol] 3.0 g/dL Low 3.2-5.2 [facility] Comment on above: Order Comment: Injur y/Trauma or Illness?:Illness/Other How long have you had these symptoms (acute/chronic)?:Acute Reason for exam?:displaced PEG tube, concern for gastric perforation History of cancer?:u Surgeries, chemotherapy, or radiation?:u Type of Exam?:Initial Additional signs and symptoms?:n Performed By: #### 4 [id number] #### LAB [address] [address] Alpesh Yee M.D. [id number] ALP [Catalytic activity/Vol] 52 U/L Normal 40-150 [facility] Comment on above: Order Comment: Injur y/Trauma or Illness?:Illness/Other How long have you had these symptoms (acute/chronic)?:Acute Reason for exam?:displaced PEG tube, concern for gastric perforation History of cancer?:u Surgeries, chemotherapy, or radiation?:u Type of Exam?:Initial Additional signs and symptoms?:n Performed By: #### 4 [id number] #### LAB [address] [address] Alpesh Yee M.D. [id number] ALT [Catalytic activity/Vol] 35 U/L Normal 0-50 U/L [facility] Comment on above: Order Comment: Injur y/Trauma or Illness?:Illness/Other How long have you had these symptoms (acute/chronic)?:Acute Reason for exam?:displaced PEG tube, concern for gastric perforation History of cancer?:u Surgeries, chemotherapy, or radiation?:u Type of Exam?:Initial Additional signs and symptoms?:n Performed By: #### 4 [id number] #### LAB [address] [address] Alpesh Yee M.D. [id number] Anion gap [Moles/Vol] 13 mmol/L Normal 10-20 [facility] Comment on above: Order Comment: Injur y/Trauma or Illness?:Illness/Other How long have you had these symptoms (acute/chronic)?:Acute Reason for exam?:displaced PEG tube, concern for gastric perforation History of cancer?:u Surgeries, chemotherapy, or radiation?:u Type of Exam?:Initial Additional signs and symptoms?:n Performed By: #### 4 [id number] #### LAB [address] [address] Alpesh Yee M.D. [id number] AST [Catalytic activity/Vol] 36 U/L Normal 0-50 U/L [facility] Comment on above: Order Comment: Injur y/Trauma or Illness?:Illness/Other How long have you had these symptoms (acute/chronic)?:Acute Reason for exam?:displaced PEG tube, concern for gastric perforation History of cancer?:u Surgeries, chemotherapy, or radiation?:u Type of Exam?:Initial Additional signs and symptoms?:n Performed By: #### 4 [id number] #### LAB [address] [address] Alpesh Yee M.D. [id number] Bilirubin [Mass/Vol] 0.5 mg/dL Normal 0.0-1.3 [facility] [place] Comment on above: Order Comment: Injur y/Trauma or Illness?:Illness/Other How long have you had these symptoms (acute/chronic)?:Acute Reason for exam?:displaced PEG tube, concern for gastric perforation History of cancer?:u Surgeries, chemotherapy, or radiation?:u Type of Exam?:Initial Additional signs and symptoms?:n Performed By: #### 4 [id number] #### LAB [address] [address] Alpesh Yee M.D. [id number] Calcium [Mass/Vol] 8.7 mg/dL Normal 8.4-10.2 [facility] Comment on above: Order Comment: Injur y/Trauma or Illness?:Illness/Other How long have you had these symptoms (acute/chronic)?:Acute Reason for exam?:displaced PEG tube, concern for gastric perforation History of cancer?:u Surgeries, chemotherapy, or radiation?:u Type of Exam?:Initial Additional signs and symptoms?:n Performed By: #### 4 [id number] #### LAB [address] [address] Alpesh Yee M.D. [id number] Chloride [Moles/Vol] 105 mmol/L Normal 98-108 [facility] [place] Comment on above: Order Comment: Injur y/Trauma or Illness?:Illness/Other How long have you had these symptoms (acute/chronic)?:Acute Reason for exam?:displaced PEG tube, concern for gastric perforation History of cancer?:u Surgeries, chemotherapy, or radiation?:u Type of Exam?:Initial Additional signs and symptoms?:n Performed By: #### 4 [id number] #### LAB [address] [address] Alpesh Yee M.D. [id number] Creatinine [Mass/Vol] 0.40 mg/dL Low 0.50-1.30 [facility] Comment on above: Order Comment: Injur y/Trauma or Illness?:Illness/Other How long have you had these symptoms (acute/chronic)?:Acute Reason for exam?:displaced PEG tube, concern for gastric perforation History of cancer?:u Surgeries, chemotherapy, or radiation?:u Type of Exam?:Initial Additional signs and symptoms?:n Performed By: #### 4 [id number] #### LAB [address] [address] Alpesh Yee M.D. [id number] EGFR 130 mL/min/1.73 m2 Normal >=60 [facility] Comment on above: Order Comment: Injur y/Trauma or Illness?:Illness/Other How long have you had these symptoms (acute/chronic)?:Acute Reason for exam?:displaced PEG tube, concern for gastric perforation History of cancer?:u Surgeries, chemotherapy, or radiation?:u Type of Exam?:Initial Additional signs and symptoms?:n Result Comment: Renetta mated GFR was calculated using the 2020 CKD-EPI creatinine equation. Performed By: #### 4 [id number] #### LAB [address] [address] Alpesh Yee M.D. [id number] Glucose [Mass/Vol] 87 mg/dL Normal 65-99 [facility] Comment on above: Order Comment: Injur y/Trauma or Illness?:Illness/Other How long have you had these symptoms (acute/chronic)?:Acute Reason for exam?:displaced PEG tube, concern for gastric perforation History of cancer?:u Surgeries, chemotherapy, or radiation?:u Type of Exam?:Initial Additional signs and symptoms?:n Performed By: #### 4 [id number] #### LAB [address] [address] Alpesh Yee M.D. [id number] HCO3 (Bld) [Moles/Vol] 24 mmol/L Normal 21-32 [facility] Comment on above: Order Comment: Injur y/Trauma or Illness?:Illness/Other How long have you had these symptoms (acute/chronic)?:Acute Reason for exam?:displaced PEG tube, concern for gastric perforation History of cancer?:u Surgeries, chemotherapy, or radiation?:u Type of Exam?:Initial Additional signs and symptoms?:n Performed By: #### 4 6149 #### LAB [address] [address] Alpesh Yee M.D. [id number] Potassium [Moles/Vol] 4.3 mmol/L Normal 3.5-5.1 [facility] Comment on above: Order Comment: Injur y/Trauma or Illness?:Illness/Other How long have you had these symptoms (acute/chronic)?:Acute Reason for exam?:displaced PEG tube, concern for gastric perforation History of cancer?:u Surgeries, chemotherapy, or radiation?:u Type of Exam?:Initial Additional signs and symptoms?:n Performed By: #### 4 [id number] #### LAB [address] [address] Alpesh Yee M.D. [id number] Protein [Mass/Vol] 5.1 g/dL Low 6.0-8.0 [facility] Comment on above: Order Comment: Injur y/Trauma or Illness?:Illness/Other How long have you had these symptoms (acute/chronic)?:Acute Reason for exam?:displaced PEG tube, concern for gastric perforation History of cancer?:u Surgeries, chemotherapy, or radiation?:u Type of Exam?:Initial Additional signs and symptoms?:n Performed By: #### 4 [id number] #### LAB [address] [address] Alpesh Yee M.D. [id number] Sodium [Moles/Vol] 138 mmol/L Normal 135-145 [facility] Comment on above: Order Comment: Injur y/Trauma or Illness?:Illness/Other How long have you had these symptoms (acute/chronic)?:Acute Reason for exam?:displaced PEG tube, concern for gastric perforation History of cancer?:u Surgeries, chemotherapy, or radiation?:u Type of Exam?:Initial Additional signs and symptoms?:n Performed By: #### 4 [id number] #### LAB [address] [place], [place] [address] Alpesh Yee M.D. [id number] Urea nitrogen [Mass/Vol] 9 mg/dL Normal 8-25 [facility] Comment on above: Order Comment: Injur y/Trauma or Illness?:Illness/Other How long have you had these symptoms (acute/chronic)?:Acute Reason for exam?:displaced PEG tube, concern for gastric perforation History of cancer?:u Surgeries, chemotherapy, or radiation?:u Type of Exam?:Initial Additional signs and symptoms?:n Performed By: #### 4 [id number] #### LAB [address] [place], [place] [address] Alpesh Yee M.D. [id number] Urea nitrogen/Creatinine [Mass ratio] 22.5 mg/mg High 10.0-20.0 [facility] Comment on above: Order Comment: Injur y/Trauma or Illness?:Illness/Other How long have you had these symptoms (acute/chronic)?:Acute Reason for exam?:displaced PEG tube, concern for gastric perforation History of cancer?:u Surgeries, chemotherapy, or radiation?:u Type of Exam?:Initial Additional signs and symptoms?:n Performed By: #### 4 [id number] ####[facility] LAB [address] [facility] [place] [place] [address] Alpesh Yee M.D. [id number] Calcium, IonizedOrdered By: Shani Carr on 06-25-2024 Calcium.ionized [Mass/Vol] 4.9 mg/dL 4.5 - 5.3 mg/dL [facility] Calcium.ionized [Mass/Vol]Or dered By: Shani Carr on 06-25-2024 Interpretation and review of laboratory results Normal [facility] Comprehensive metabolic 2000 panelon 06-25-2024 Albumin [Mass/Vol] 3 g/dL Low 3.2 - 5.2 g/dL [facility] ALP [Catalytic activity/Vol] 52 U/L 40 - 150 U/L [facility] ALT [Catalytic activity/Vol] 35 U/L 0-50 U/L [facility] Anion gap [Moles/Vol] 13 mmol/L 10 - 2 0 mmol/L [facility] AST [Catalytic activity/Vol] 36 U/L 0-50 U/L [facility] Bilirubin [Mass/Vol] 0.5 mg/dL 0.0 - 1 .3 mg/dL [facility] Calcium [Mass/Vol] 8.7 mg/dL 8.4 - 10. 2 mg/dL [facility] Chloride [Moles/Vol] 105 mmol/L 98 - 10 8 mmol/L [facility] Creatinine [Mass/Vol] 0.4 mg/dL Low 0.50 - 1.30 mg/dL [facility] GFR/1.73 sq M.predicted CKD-EPI (S/P/Bld) [Vol rate/Area] 130 - PINF [facility] Glucose [Mass/Vol] 87 mg/dL 65 - 99 mg/dL [facility]3 [Moles/Vol] 24 mmol/L 21 - 32 mmol/L [facility] Potassium [Moles/Vol] 4.3 mmol/L 3.5 - 5.1 mmol/L [facility] Protein [Mass/Vol] 5.1 g/dL Low 6.0 - 8.0 g/dL [facility] Sodium [Moles/Vol] 138 mmol/L 135 - 145 mmol/L [facility] Urea nitrogen [Mass/Vol] 9 mg/dL 8 - 25 mg/d L [facility] Urea nitrogen/Creatinine [Mass ratio] 22.5 mg/mg High 10.0 - 20.0 [facility] Glucose (Bld) [Mass/Vol]on 1 08-26-2023 Glucose [Mass/Vol] 101 mg/dL High 65 - 99 mg/dL [facility] Interpretation and review of laboratory results Abnormal [facility] Glucose [Mass/Vol] 98 mg/dL 65 - 99 mg/dL [facility]Health Interpretation and review of laboratory results Normal [facility] Glucose [Mass/Vol] 105 mg/dL High 65 - 99 mg/dL [facility] Interpretation and review of laboratory results Abnormal [facility] Glucose [Mass/Vol] 97 mg/dL 65 - 99 mg/dL [facility] Interpretation and review of laboratory results Normal [facility] Glucose [Mass/Vol] 89 mg/dL 65 - 99 mg/dL [facility] Interpretation and review of laboratory results Normal [facility] Laboratory - Microbiology an d Antimicrobial susceptibilityon 06-25-2024 Bacteria identified Cx Nom (Bld) No Growth after 5 days [facility] MAGNESIUM LEVELon 06-25-2024 Magnesium [Mass/Vol] 2.0 mg/dL Normal 1.6-2.4 [facility] Comment on above: Performed By: #### 4 [id number] #### MH LAB [address] [place], [place] [address] Alpesh Yee M.D. [id number] Magnesium Levelon 06-25-2024 Magnesium [Mass/Vol] 2 mg/dL 1.6 - 2 .4 mg/dL [facility] No Panel Informationon 06-25 Interpretation and review of laboratory results Normal [facility] Interpretation and review of laboratory results Abnormal [facility] PHOSPHORUSon 06-25-2024 Phosphate [Mass/Vol] 4.1 mg/dL Normal 2.7-4.5 [facility] Comment on above: Performed By: #### 4 [id number] #### MH LAB [address] [place], [place] [address] Alpesh Yee M.D. [id number] POC GLUCOSE - [facility] 024 Glucose [Mass/Vol] 101 mg/dL High 65-99 [facility] Comment on above: Performed By: #### 4 [id number] #### MH LAB [address] [place], [place] [address] Alpesh Yee M.D. [id number] Glucose [Mass/Vol] 98 mg/dL Normal -[address] [place] [address] Comment on above: Performed By: #### 4 [id number] #### MH LAB [address] [address] Alpesh Yee M.D. [id number] Glucose [Mass/Vol] 105 mg/dL High 65-[address] [place] [address] Comment on above: Performed By: #### 4 [id number] #### LAB [address] [address] Alpesh Yee M.D. [id number] Glucose [Mass/Vol] 97 mg/dL Normal -[address] [place] [address] Comment on above: Performed By: #### 4 4014 #### LAB [address] [address] Alpesh Yee M.D. [id number] Glucose [Mass/Vol] 89 mg/dL Normal -[address] [place] [address] Comment on above: Performed By: #### 4 [id number] #### LAB [address] [address] Alpesh Yee M.D. [id number] PREALBUMINon 06-25-2024 Prealbumin [Mass/Vol] 11.2 mg/dL Low 20.0-40.0 [facility] Comment on above: Performed By: #### L [id number] #### MH LAB [address] [place], [place] [address] Alpesh Yee M.D. [id number] Phosphoruson 06-25-2024 Phosphate [Mass/Vol] 4.1 mg/dL 2.7 - 4 .5 mg/dL [facility] Prealbuminon 06-25-2024 Prealbumin [Mass/Vol] 11.2 mg/dL Low 20.0 - 40.0 mg/dL [facility] TRIGLYCERIDESon 06-25-2024 Triglyceride [Mass/Vol] 94 mg/dL Normal 30-150 [facility] Comment on above: Result Comment: Julia [employer] Cholesterol Education Program Guidelines: Triglyceride Normal: <150 mg/dL Borderline High: 150-199 mg/dL High: 200-499 mg/dL Very High: greater than or equal to 500 mg/dL Performed By: #### L [id number] #### MH LAB [address] [place], [place] [address] Alpesh Yee M.D. [id number] Triglycerideson 06-25-2024 Triglyceride [Mass/Vol] 94 mg/dL 30 - 150 mg/dL [facility] XR UPPER GIon 06-25-2024 XR UPPER GI EXAMINATION: XR UPPER GI HISTORY: ORDERING SYSTEM PROVIDED HISTORY: status post repair of gastric perforation. Please perform study with Gastrografin through G-tube, TECHNOLOGIST PROVIDED HISTORY: Illness/Other Reason for exam: status post repair of gastric perforation. Please perform study with Gastrografin through G-tube Encounter Type: Initial Additional signs and symptoms: . Fluoro dose in mGy: 102.6 ORDERING SYSTEM PROVIDED DIAGNOSIS CODES: COMPARISON: [facility] June 20, 2024. TECHNIQUE: RADIATION EXPOSURE: Fluoro dose in Ka,r mGy: 102.6 Initial clinical appeals reviewer view. Approximately 150 mL Isovue-300 contrast was injected into the patient's G-tube under fluoroscopic guidance. FINDINGS: Initial clinical appeals reviewer view shows no significant gaseous distension of the small or large bowel to suggest obstruction or ileus. Surgical drain overlies the left abdomen. G-tube is at the level of the gastric body. The Isovue contrast conforms to the stomach with flow of contrast through the pylorus into the duodenum with no extravasation of the contrast on the AP and lateral projections to suggest perforation. G-tube is in the gastric body. There was gastroesophageal reflux into the distal esophagus when turning the patient to the right side. IMPRESSION: G-tube is position within the gastric body with contrast injected through G-tube seen within the stomach and duodenum. No extravasation to suggest leak. JAR/trn Workstation ID: [id number] Dictated by: NEVILLE VEGA on TueJun 25, 2024 10:11:44 AM EST Transcribed by: BRANDT RAI on TueJun 25, 2024 11:51:06 AM EST Finalized by: NEVILLE VEGA on TueJun 25, 2024 3:49:53 PM EST Normal [facility] Comment on above: Order Comment: Injur y/Trauma or Illness?:Illness/Other How long have you had these symptoms (acute/chronic)?:Unknown Reason for exam?:status post repair of gastric perforation. Please perform study with Gastrografin through G-tube Type of Exam?:Initial Additional signs and symptoms?:. Fluoro time in minutes:2.29 two minutes and twenty nine seconds Fluoro dose in mGy?:102.6 XR Upper GIon 06-25-2024 GE RIS GE RIS [facility] Radiology Study observation (narrative) Heal th XR Upper GIOrdered By: Macho Vega on 06-25-2024 [facility] Work Phone: BASIC METABOLIC PANELon 12 Anion gap [Moles/Vol] 14 mmol/L Normal 10-20 [facility] Comment on above: Order Comment: Injur y/Trauma or Illness?:Illness/Other How long have you had these symptoms (acute/chronic)?:Acute Reason for exam?:displaced PEG tube, concern for gastric perforation History of cancer?:u Surgeries, chemotherapy, or radiation?:u Type of Exam?:Initial Additional signs and symptoms?:n Performed By: #### 4 [id number] #### LAB [address] [place], [place] [address] Alpesh Yee M.D. [id number] Calcium [Mass/Vol] 7.6 mg/dL Low 8.4-10.2 [facility] Comment on above: Order Comment: Injur y/Trauma or Illness?:Illness/Other How long have you had these symptoms (acute/chronic)?:Acute Reason for exam?:displaced PEG tube, concern for gastric perforation History of cancer?:u Surgeries, chemotherapy, or radiation?:u Type of Exam?:Initial Additional signs and symptoms?:n Performed By: #### 4 [id number] #### LAB [address] [place], [place] [address] Alpesh Yee M.D. [id number] Chloride [Moles/Vol] 104 mmol/L Normal 98-108 [facility] Comment on above: Order Comment: Injur y/Trauma or Illness?:Illness/Other How long have you had these symptoms (acute/chronic)?:Acute Reason for exam?:displaced PEG tube, concern for gastric perforation History of cancer?:u Surgeries, chemotherapy, or radiation?:u Type of Exam?:Initial Additional signs and symptoms?:n Performed By: #### 4 6139 #### LAB [address] [address] Alpesh Yee M.D. [id number] Creatinine [Mass/Vol] 0.33 mg/dL Low 0.50-1.30 [facility] Comment on above: Order Comment: Injur y/Trauma or Illness?:Illness/Other How long have you had these symptoms (acute/chronic)?:Acute Reason for exam?:displaced PEG tube, concern for gastric perforation History of cancer?:u Surgeries, chemotherapy, or radiation?:u Type of Exam?:Initial Additional signs and symptoms?:n Performed By: #### 4 6195 #### LAB [address] [address] Alpesh Yee M.D. [id number] EGFR 138 mL/min/1.73 m2 Normal >=60 [facility] Comment on above: Order Comment: Injur y/Trauma or Illness?:Illness/Other How long have you had these symptoms (acute/chronic)?:Acute Reason for exam?:displaced PEG tube, concern for gastric perforation History of cancer?:u Surgeries, chemotherapy, or radiation?:u Type of Exam?:Initial Additional signs and symptoms?:n Result Comment: Renetta mated GFR was calculated using the 2020 CKD-EPI creatinine equation. Performed By: #### 4 6140 #### LAB [address] [address] Alpesh Yee M.D. [id number] Glucose [Mass/Vol] 79 mg/dL Normal 65-99 [facility] Comment on above: Order Comment: Injur y/Trauma or Illness?:Illness/Other How long have you had these symptoms (acute/chronic)?:Acute Reason for exam?:displaced PEG tube, concern for gastric perforation History of cancer?:u Surgeries, chemotherapy, or radiation?:u Type of Exam?:Initial Additional signs and symptoms?:n Performed By: #### 4 6134 #### LAB [address] [address] Alpesh Yee M.D. [id number] HCO3 (Bld) [Moles/Vol] 23 mmol/L Normal 21-32 [facility] Comment on above: Order Comment: Injur y/Trauma or Illness?:Illness/Other How long have you had these symptoms (acute/chronic)?:Acute Reason for exam?:displaced PEG tube, concern for gastric perforation History of cancer?:u Surgeries, chemotherapy, or radiation?:u Type of Exam?:Initial Additional signs and symptoms?:n Performed By: #### 4 6124 #### LAB [address] [address] Alpesh Yee M.D. [id number] Potassium [Moles/Vol] 3.9 mmol/L Normal 3.5-5.1 [facility] Comment on above: Order Comment: Injur y/Trauma or Illness?:Illness/Other How long have you had these symptoms (acute/chronic)?:Acute Reason for exam?:displaced PEG tube, concern for gastric perforation History of cancer?:u Surgeries, chemotherapy, or radiation?:u Type of Exam?:Initial Additional signs and symptoms?:n Performed By: #### 4 6124 ####[facility] LAB [address] [address] Alpesh Yee M.D. [id number] Sodium [Moles/Vol] 137 mmol/L Normal 135-145 [facility] Comment on above: Order Comment: Injur y/Trauma or Illness?:Illness/Other How long have you had these symptoms (acute/chronic)?:Acute Reason for exam?:displaced PEG tube, concern for gastric perforation History of cancer?:u Surgeries, chemotherapy, or radiation?:u Type of Exam?:Initial Additional signs and symptoms?:n Performed By: #### 4 6124 #### LAB [address] [address] Alpesh Yee M.D. [id number] Urea nitrogen [Mass/Vol] 11 mg/dL Normal 8-25 [facility] Comment on above: Order Comment: Injur y/Trauma or Illness?:Illness/Other How long have you had these symptoms (acute/chronic)?:Acute Reason for exam?:displaced PEG tube, concern for gastric perforation History of cancer?:u Surgeries, chemotherapy, or radiation?:u Type of Exam?:Initial Additional signs and symptoms?:n Performed By: #### 4 6124 #### LAB [address] [place], [place] [address] Alpesh Yee M.D. [id number] Urea nitrogen/Creatinine [Mass ratio] 33.3 mg/mg High 10.0-20.0 [facility] Comment on above: Order Comment: Injur y/Trauma or Illness?:Illness/Other How long have you had these symptoms (acute/chronic)?:Acute Reason for exam?:displaced PEG tube, concern for gastric perforation History of cancer?:u Surgeries, chemotherapy, or radiation?:u Type of Exam?:Initial Additional signs and symptoms?:n Performed By: #### 4 6124 ####[facility] [address] [place], [place] [address] Alpesh Yee M.D. [id number] Basic metabolic 2000 panelon 06-24-2024 Anion gap [Moles/Vol] 14 mmol/L 10 - 2 0 mmol/L [facility] Calcium [Mass/Vol] 7.6 mg/dL Low 8.4 - 10. 2 mg/dL [facility] Chloride [Moles/Vol] 104 mmol/L 98 - 10 8 mmol/L [facility] Creatinine [Mass/Vol] 0.33 mg/dL Low 0.50 - 1.30 mg/dL [facility] GFR/1.73 sq M.predicted CKD-EPI (S/P/Bld) [Vol rate/Area] 138 - PINF [facility] Glucose [Mass/Vol] 79 mg/dL 65 - 99 mg/dL [facility] HCO3 [Moles/Vol] 23 mmol/L 21 - 32 mmol/L [facility] Interpretation and review of laboratory results Abnormal [facility] Potassium [Moles/Vol] 3.9 mmol/L 3.5 - 5.1 mmol/L [facility] Sodium [Moles/Vol] 137 mmol/L 135 - 145 mmol/L [facility] Urea nitrogen [Mass/Vol] 11 mg/dL 8 - 25 mg/d L [facility] Urea nitrogen/Creatinine [Mass ratio] 33.3 mg/mg High 10.0 - 20.0 [facility] CALCIUM, IONIZEDon CALCIUM IONIZED 4.5 mg/dL Normal 4.5-5.3 [facility] Comment on above: Performed By: #### 4 6932 #### LAB [address] [address] Alpesh Yee M.D. [id number] CBCon 06-24-2024 AUTO NRBC 0.0 % Normal [facility] Comment on above: Performed By: #### 4 [id number] ####[facility] LAB [address] [address] Alpesh Yee M.D. [id number] AUTO NRBC ABS COUNT 0.00 K/mcL Normal 0.00-0.00 [facility] Comment on above: Performed By: #### 4 [id number] #### LAB [address] [address] Alpesh Yee M.D. [id number] Erythrocyte distribution width (RBC) [Ratio] 12.2 % Normal 11.6-14.8 [facility] Comment on above: Performed By: #### 4 [id number] #### LAB [address] [address] Alpesh Yee M.D. [id number] Hematocrit (Bld) [Volume fraction] 33.4 % Low 41.0-53.0 [facility] Comment on above: Performed By: #### 4 [id number] #### LAB [address] [address] Alpesh Yee M.D. [id number] Hemoglobin (Bld) [Mass/Vol] 11.1 g/dL Low 13.5-17.5 [facility] Comment on above: Performed By: #### 4 [id number] #### LAB [address] [address] Alpesh Yee M.D. [id number] MCH (RBC) [Entitic mass] 30.6 pg Normal 26.0-34.0 [facility] Comment on above: Performed By: #### 4 [id number] #### LAB [address] [address] Alpesh Yee M.D. [id number] MCV (RBC) [Entitic vol] 92.0 fL Normal 80.0-100.0 [facility] Comment on above: Performed By: #### 4 [id number] #### LAB [address] [address] Alpesh Yee M.D. [id number] MEAN CORPUSCULAR HEMOGLOBIN CONC 33.2 g/dL Normal 31.0-37.0 [facility] Comment on above: Performed By: #### 4 [id number] #### LAB [address] [address] Alpesh Yee M.D. [id number] Platelet mean volume (Bld) [Entitic vol] 11.8 fL Normal 9.4-12.4 [facility] Comment on above: Performed By: #### 4 [id number] #### LAB [address] [address] Alpesh Yee M.D. [id number] Platelets (Bld) [#/Vol] 183 10*3/uL Normal 150-400 [facility] Comment on above: Performed By: #### 4 [id number] #### LAB [address] [address] Alpesh Yee M.D. [id number] RBC (Bld) [#/Vol] 3.63 10*6/uL Low 4.50-5.90 [facility] Comment on above: Performed By: #### 4 [id number] #### LAB [address] [address] Alpesh Yee M.D. [id number] WBC (Bld) [#/Vol] 7.90 10*3/uL Normal 4.50-11.00 [facility] Comment on above: Performed By: #### 4 [id number] #### LAB [address] [address] Alpesh Yee M.D. [id number] AUTO NRBC 0.0 % Normal [facility] Comment on above: Performed By: #### 4 [id number] #### LAB [address] [address] Alpesh Yee M.D. [id number] AUTO NRBC ABS COUNT 0.00 K/mcL Normal 0.00-0.00 [facility] Comment on above: Performed By: #### 4 [id number] #### LAB [address] [address] Alpesh Yee M.D. [id number] Erythrocyte distribution width (RBC) [Ratio] 12.4 % Normal 11.6-14.8 [facility] Comment on above: Performed By: #### 4 [id number] #### LAB [address] [address] Alpesh Yee M.D. [id number] Hematocrit (Bld) [Volume fraction] 33.4 % Low 41.0-53.0 [facility] Comment on above: Performed By: #### 4 [id number] #### LAB [address] [address] Alpesh Yee M.D. [id number] Hemoglobin (Bld) [Mass/Vol] 11.2 g/dL Low 13.5-17.5 [facility] Comment on above: Performed By: #### 4 [id number] #### LAB [address] [address] Alpesh Yee M.D. [id number] MCH (RBC) [Entitic mass] 30.9 pg Normal 26.0-34.0 [facility] Comment on above: Performed By: #### 4 [id number] #### LAB [address] [address] Alpesh Yee M.D. [id number] MCV (RBC) [Entitic vol] 92.0 fL Normal 80.0-100.0 [facility] Comment on above: Performed By: #### 4 [id number] #### LAB [address] [address] Alpesh Yee M.D. [id number] MEAN CORPUSCULAR HEMOGLOBIN CONC 33.5 g/dL Normal 31.0-37.0 [facility] Comment on above: Performed By: #### 4 [id number] #### LAB [address] [address] Alpesh Yee M.D. [id number] Platelet mean volume (Bld) [Entitic vol] 11.9 fL Normal 9.4-12.4 [facility] Comment on above: Performed By: #### 4 [id number] #### LAB [address] [address] Alpesh Yee M.D. [id number] Platelets (Bld) [#/Vol] 183 10*3/uL Normal 150-400 [facility] Comment on above: Performed By: #### 4 [id number] #### LAB [address] [address] Alpesh Yee M.D. [id number] RBC (Bld) [#/Vol] 3.63 10*6/uL Low 4.50-5.90 [facility] Comment on above: Performed By: #### 4 [id number] #### LAB [address] [address] Alpesh Yee M.D. [id number] WBC (Bld) [#/Vol] 8.62 10*3/uL Normal 4.50-11.00 [facility] Comment on above: Performed By: #### 4 [id number] #### LAB [address] [address] Alpesh Yee M.D. [id number] AUTO NRBC 0.2 % Normal [facility] Comment on above: Performed By: #### 4 6932 #### LAB [address] [address] Alpesh Yee M.D. [id number] Performed By: #### 4 7222 #### LAB [address] [address] Alpesh Yee M.D. [id number] AUTO NRBC ABS COUNT 0.02 K/mcL High 0.00-0.00 [facility] Comment on above: Performed By: #### 4 6932 #### LAB [address] [address] Alpesh Yee M.D. [id number] Performed By: #### 4 7222 #### LAB [address] [id number] Alpesh Yee M.D. [id number] Erythrocyte distribution width (RBC) [Ratio] 12.3 % Normal 11.6-14.8 [facility] Comment on above: Performed By: #### 4 6932 #### LAB [address] [address] Alpesh Yee M.D. [id number] Performed By: #### 4 7222 #### LAB [address] [address] Alpesh Yee M.D. [id number] Hematocrit (Bld) [Volume fraction] 33.1 % Low 41.0-53.0 [facility] Comment on above: Performed By: #### 4 6932 #### LAB [address] [address] Alpesh Yee M.D. [id number] Hematocrit (Bld) [Volume fraction] 32.8 % Low 41.0-53.0 [facility] Comment on above: Performed By: #### 4 7222 #### LAB [address] [address] Alpesh Yee M.D. [id number] Hemoglobin (Bld) [Mass/Vol] 10.9 g/dL Low 13.5-17.5 [facility] Comment on above: Performed By: #### 4 6932 #### LAB [address] [id number] Alpesh Yee M.D. [id number] Hemoglobin (Bld) [Mass/Vol] 10.8 g/dL Low 13.5-17.5 [facility] Comment on above: Performed By: #### 4 7222 #### LAB [address] [address] Alpesh Yee M.D. [id number] MCH (RBC) [Entitic mass] 30.4 pg Normal 26.0-34.0 [facility] Comment on above: Performed By: #### 4 6932 #### LAB [address] [address] Alpesh Yee M.D. [id number] MCH (RBC) [Entitic mass] 30.3 pg Normal 26.0-34.0 [facility] Comment on above: Performed By: #### 4 7222 #### LAB [address] [address] Alpesh Yee M.D. [id number] MCV (RBC) [Entitic vol] 92.5 fL Normal 80.0-100.0 [facility] Comment on above: Performed By: #### 4 6932 #### LAB [address] [address] Alpesh Yee M.D. [id number] MCV (RBC) [Entitic vol] 92.1 fL Normal 80.0-100.0 [facility] Comment on above: Performed By: #### 4 7222 #### LAB [address] [address] Alpesh Yee M.D. [id number] MEAN CORPUSCULAR HEMOGLOBIN CONC 32.9 g/dL Normal 31.0-37.0 [facility] Comment on above: Performed By: #### 4 6932 #### LAB [address] [address] Alpesh Yee M.D. [id number] Performed By: #### 4 7222 #### LAB [address] [address] Alpesh Yee M.D. [id number] Platelet mean volume (Bld) [Entitic vol] 11.9 fL Normal 9.4-12.4 [facility] Comment on above: Performed By: #### 4 6932 #### LAB [address] [address] Alpesh Yee M.D. [id number] Platelet mean volume (Bld) [Entitic vol] 11.8 fL Normal 9.4-12.4 [facility] Comment on above: Performed By: #### 4 7222 #### LAB [address] [address] Alpesh Yee M.D. [id number] Platelets (Bld) [#/Vol] 170 10*3/uL Normal 150-400 [facility] Comment on above: Performed By: #### 4 6932 #### LAB [address] [address] Alpesh Yee M.D. [id number] Platelets (Bld) [#/Vol] 167 10*3/uL Normal 150-400 [facility] Comment on above: Performed By: #### 4 7222 #### LAB [address] [address] Alpesh Yee M.D. [id number] RBC (Bld) [#/Vol] 3.58 10*6/uL Low 4.50-5.90 [facility] Comment on above: Performed By: #### 4 6932 #### LAB [address] [address] Alpesh Yee M.D. [id number] RBC (Bld) [#/Vol] 3.56 10*6/uL Low 4.50-5.90 [facility] Comment on above: Performed By: #### 4 7222 #### LAB [address] [place] [address] Alpesh Yee M.D. [id number] WBC (Bld) [#/Vol] 8.57 10*3/uL Normal 4.50-11.00 [facility] Comment on above: Performed By: #### 4 6932 #### LAB [address] [place] [address] Alpesh Yee M.D. [id number] WBC (Bld) [#/Vol] 8.22 10*3/uL Normal 4.50-11.00 [facility] Comment on above: Performed By: #### 4 7222 #### LAB [address] [address] Alpesh Yee M.D. [id number] CBC panel Auto (Bld)on 06-24 Erythrocyte distribution width (RBC) [Entitic vol] 12.2 % 11.6 - 14.8 % [place] [facility] Hematocrit (Bld) [Volume fraction] 33.4 % Low 41.0 - 53.0 % [facility] Hemoglobin (Bld) [Mass/Vol] 11.1 g/dL Low 13.5 - 17.5 g/dL [facility] Interpretation and review of laboratory results Abnormal [facility] MCH (RBC) [Entitic mass] 30.6 pg 26. 0 - 34.0 pg [facility] MCHC (RBC) [Mass/Vol] 33.2 g/dL 31.0 - 37.0 g/dL [facility] MCV (RBC) [Entitic vol] 92 fL 80.0 - 100.0 fL [facility] Nucleated RBC (Bld) [#/Vol] 0 10*3/uL [facility] Nucleated RBC/100 WBC (Bld) [Ratio] 0 % [facility] Platelet mean volume (Bld) [Entitic vol] 11.8 fL 9.4 - 12.4 fL [facility] Platelets (Bld) [#/Vol] 183 10*3/uL [facility] RBC (Bld) [#/Vol] 3.63 10*6/uL Low [facility] WBC (Bld) [#/Vol] 7.9 10*3/uL [facility] alth [facility] Erythrocyte distribution width (RBC) [Entitic vol] 12.4 % 11.6 - 14.8 % [facility] alth Hematocrit (Bld) [Volume fraction] 33.4 % Low 41.0 - 53.0 % [facility] Hemoglobin (Bld) [Mass/Vol] 11.2 g/dL Low 13.5 - 17.5 g/dL [facility] Interpretation and review of laboratory results Abnormal [facility] MCH (RBC) [Entitic mass] 30.9 pg 26. 0 - 34.0 pg [facility] MCHC (RBC) [Mass/Vol] 33.5 g/dL 31.0 - 37.0 g/dL [facility] MCV (RBC) [Entitic vol] 92 fL 80.0 - 100.0 fL [facility] Nucleated RBC (Bld) [#/Vol] 0 10*3/uL [facility] Nucleated RBC/100 WBC (Bld) [Ratio] 0 % [facility] Platelet mean volume (Bld) [Entitic vol] 11.9 fL 9.4 - 12.4 fL [facility] Platelets (Bld) [#/Vol] 183 10*3/uL [facility] RBC (Bld) [#/Vol] 3.63 10*6/uL Low [facility] WBC (Bld) [#/Vol] 8.62 10*3/uL [facility] Erythrocyte distribution width (RBC) [Entitic vol] 12.3 % 11.6 - 14.8 % [facility] Hematocrit (Bld) [Volume fraction] 32.8 % Low 41.0 - 53.0 % [facility] Hemoglobin (Bld) [Mass/Vol] 10.8 g/dL Low 13.5 - 17.5 g/dL [facility] Interpretation and review of laboratory results Abnormal [facility] MCH (RBC) [Entitic mass] 30.3 pg 26. 0 - 34.0 pg [facility] MCHC (RBC) [Mass/Vol] 32.9 g/dL 31.0 - 37.0 g/dL [facility] MCV (RBC) [Entitic vol] 92.1 fL 80.0 - 100.0 fL [facility] Nucleated RBC (Bld) [#/Vol] 0.02 10*3/uL High [facility] Nucleated RBC/100 WBC (Bld) [Ratio] 0.2 % [facility] Platelet mean volume (Bld) [Entitic vol] 11.8 fL 9.4 - 12.4 fL [facility] Platelets (Bld) [#/Vol] 167 10*3/uL [facility] RBC (Bld) [#/Vol] 3.56 10*6/uL Low [facility] WBC (Bld) [#/Vol] 8.22 10*3/uL [facility] Erythrocyte distribution width (RBC) [Entitic vol] 12.3 % 11.6 - 14.8 % [facility] Hematocrit (Bld) [Volume fraction] 33.1 % Low 41.0 - 53.0 % [facility] Hemoglobin (Bld) [Mass/Vol] 10.9 g/dL Low 13.5 - 17.5 g/dL [facility] Interpretation and review of laboratory results Abnormal [facility] MCH (RBC) [Entitic mass] 30.4 pg 26. 0 - 34.0 pg [facility] MCHC (RBC) [Mass/Vol] 32.9 g/dL 31.0 - 37.0 g/dL [facility] MCV (RBC) [Entitic vol] 92.5 fL 80.0 - 100.0 fL [facility] Nucleated RBC (Bld) [#/Vol] 0.02 10*3/uL High [facility] Nucleated RBC/100 WBC (Bld) [Ratio] 0.2 % [facility] Platelet mean volume (Bld) [Entitic vol] 11.9 fL 9.4 - 12.4 fL [facility] Platelets (Bld) [#/Vol] 170 10*3/uL [facility] RBC (Bld) [#/Vol] 3.58 10*6/uL Low [facility] WBC (Bld) [#/Vol] 8.57 10*3/uL [facility] Calcium, Ionizedon Calcium.ionized [Mass/Vol] 4.5 mg/dL 4.5 - 5.3 mg/dL [facility] Calcium.ionized [Mass/Vol]on 06-24-2024 Interpretation and review of laboratory results Normal [facility] Glucose (Bld) [Mass/Vol]on 08-25-2023 Glucose [Mass/Vol] 99 mg/dL 65 - 99 mg/dL [facility] Interpretation and review of laboratory results Normal [facility] Glucose [Mass/Vol] 81 mg/dL 65 - 99 mg/dL [facility] Interpretation and review of laboratory results Normal [facility] Glucose [Mass/Vol] 101 mg/dL High 65 - 99 mg/dL [facility] Interpretation and review of laboratory results Abnormal [facility] Glucose [Mass/Vol] 93 mg/dL 65 - 99 mg/dL [facility] Interpretation and review of laboratory results Normal [facility] Glucose [Mass/Vol] 106 mg/dL High 65 - 99 mg/dL [facility] Interpretation and review of laboratory results Abnormal [facility] Glucose [Mass/Vol] 98 mg/dL 65 - 99 mg/dL [facility] Interpretation and review of laboratory results Normal [facility] POC GLUCOSE - [facility] 024 Glucose [Mass/Vol] 99 mg/dL Normal 65-99 [facility] Comment on above: Performed By: #### 4 4014 #### LAB [address] [address] Alpesh Yee M.D. [id number] Glucose [Mass/Vol] 81 mg/dL Normal [address] [place] [address] Comment on above: Performed By: #### 4 6932 #### [facility] [address] [address] Alpesh Yee M.D. [id number] Glucose [Mass/Vol] 101 mg/dL High [address] [place] [address] Comment on above: Performed By: #### 4 4014 #### LAB [address] [address] Alpesh Yee M.D. [id number] Glucose [Mass/Vol] 93 mg/dL Normal [address] [place] [address] Comment on above: Performed By: #### 4 4014 #### LAB [address] [address] Alpesh Yee M.D. [id number] Glucose [Mass/Vol] 106 mg/dL High [address] [place] [address] Comment on above: Performed By: #### 4 4014 #### LAB [address] [address] Alpesh Yee M.D. [id number] Glucose [Mass/Vol] 98 mg/dL Normal [address] [place] [address] Comment on above: Performed By: #### 4 4014 #### [facility] [address] [address] Alpesh Yee M.D. [id number] POTASSIUM LEVELon 06-24-2024 Potassium [Moles/Vol] 3.9 mmol/L Normal 3.5-5.1 [facility] Comment on above: Performed By: #### 4 4014 #### [facility] LAB [address] [address] Alpesh Yee M.D. [id number] Potassium Levelon 06-24-2024 Potassium [Moles/Vol] 3.9 mmol/L 3.5 - 5.1 mmol/L [facility] Potassium [Moles/Vol]on 12 Interpretation and review of laboratory results Normal [facility] BASIC METABOLIC PANELon 113 Anion gap [Moles/Vol] 12 mmol/L Normal 10-20 [facility] Comment on above: Order Comment: [facility] has implemented the eGFR calculation approach that does not have a coefficient for race that conforms to the NKF-ASN Task Force Recommendations. Performed By: #### 4 6124 #### LAB [address] [address] Alpesh Yee M.D. [id number] Calcium [Mass/Vol] 8.4 mg/dL Normal 8.4-10.2 [facility] Comment on above: Order Comment: [facility] has implemented the eGFR calculation approach that does not have a coefficient for race that conforms to the NKF-ASN Task Force Recommendations. Performed By: #### 4 6124 #### LAB [address] [address] Alpesh Yee M.D. [id number] Chloride [Moles/Vol] 108 mmol/L Normal 98-108 [facility] Comment on above: Order Comment: [facility] has implemented the eGFR calculation approach that does not have a coefficient for race that conforms to the NKF-ASN Task Force Recommendations. Performed By: #### 4 6124 #### LAB [address] [address] Alpesh Yee M.D. [id number] Creatinine [Mass/Vol] 0.37 mg/dL Low 0.50-1.30 [facility] Comment on above: Order Comment: [facility] has implemented the eGFR calculation approach that does not have a coefficient for race that conforms to the NKF-ASN Task Force Recommendations. Performed By: #### 4 6124 #### LAB [address] [place], [place] [address] Alpesh Yee M.D. [id number] EGFR 134 mL/min/1.73 m2 Normal >=60 [facility] Comment on above: Order Comment: [facility] has implemented the eGFR calculation approach that does not have a coefficient for race that conforms to the NKF-ASN Task Force Recommendations. Result Comment: Renetta mated GFR was calculated using the 2020 CKD-EPI creatinine equation. Performed By: #### 4 6159 #### LAB [address] [address] Alpesh Yee M.D. [id number] Glucose [Mass/Vol] 117 mg/dL High 65-99 [facility] Comment on above: Order Comment: [facility] has implemented the eGFR calculation approach that does not have a coefficient for race that conforms to the NKF-ASN Task Force Recommendations. Performed By: #### 4 6111 #### LAB [address] [address] Alpesh Yee M.D. [id number] HCO3 (Bld) [Moles/Vol] 26 mmol/L Normal 21-32 [facility] Comment on above: Order Comment: [facility] has implemented the eGFR calculation approach that does not have a coefficient for race that conforms to the NKF-ASN Task Force Recommendations. Performed By: #### 4 6190 #### LAB [address] [place] [address] Alpesh Yee M.D. [id number] Potassium [Moles/Vol] 3.8 mmol/L Normal 3.5-5.1 [facility] Comment on above: Order Comment: [facility] has implemented the eGFR calculation approach that does not have a coefficient for race that conforms to the NKF-ASN Task Force Recommendations. Performed By: #### 4 [id number] #### LAB [address] [address] Alpesh Yee M.D. [id number] Sodium [Moles/Vol] 142 mmol/L Normal 135-145 [facility] Comment on above: Order Comment: [facility] has implemented the eGFR calculation approach that does not have a coefficient for race that conforms to the NKF-ASN Task Force Recommendations. Performed By: #### 4 [id number] #### LAB [address] [place], [place] [address] Alpesh Yee M.D. [id number] Urea nitrogen [Mass/Vol] 20 mg/dL Normal 8-25 [facility] Comment on above: Order Comment: [facility] has implemented the eGFR calculation approach that does not have a coefficient for race that conforms to the NKF-ASN Task Force Recommendations. Performed By: #### 4 6124 #### LAB [address] [place], [place] [address] Alpesh Yee M.D. [id number] Urea nitrogen/Creatinine [Mass ratio] 54.1 mg/mg High 10.0-20.0 [facility] Comment on above: Order Comment: [facility] has implemented the eGFR calculation approach that does not have a coefficient for race that conforms to the NKF-ASN Task Force Recommendations. Performed By: #### 4 6124 #### LAB [address] [place], [place] [address] Alpesh Yee M.D. [id number] Basic metabolic 2000 panelon 06-23-2024 Anion gap [Moles/Vol] 12 mmol/L 10 - 2 0 mmol/L [facility] Calcium [Mass/Vol] 8.4 mg/dL 8.4 - 10. 2 mg/dL [facility] Chloride [Moles/Vol] 108 mmol/L 98 - 10 8 mmol/L [facility] Creatinine [Mass/Vol] 0.37 mg/dL Low 0.50 - 1.30 mg/dL [facility] GFR/1.73 sq M.predicted CKD-EPI (S/P/Bld) [Vol rate/Area] 134 - PINF [facility] Glucose [Mass/Vol] 117 mg/dL High 65 - 99 mg/dL [facility] HCO3 [Moles/Vol] 26 mmol/L 21 - 32 mmol/L [facility] Interpretation and review of laboratory results Abnormal [facility] Potassium [Moles/Vol] 3.8 mmol/L 3.5 - 5.1 mmol/L [facility] Sodium [Moles/Vol] 142 mmol/L 135 - 145 mmol/L [facility] Urea nitrogen [Mass/Vol] 20 mg/dL 8 - 25 mg/d L [facility] Urea nitrogen/Creatinine [Mass ratio] 54.1 mg/mg High 10.0 - 20.0 [facility] Anion gap [Moles/Vol] 12 mmol/L 10 - 2 0 mmol/L [facility] Calcium [Mass/Vol] 8.4 mg/dL 8.4 - 10. 2 mg/dL [facility] Chloride [Moles/Vol] 109 mmol/L High 98 - 10 8 mmol/L [facility] Creatinine [Mass/Vol] 0.4 mg/dL Low 0.50 - 1.30 mg/dL [facility] GFR/1.73 sq M.predicted CKD-EPI (S/P/Bld) [Vol rate/Area] 130 - PINF [facility] Glucose [Mass/Vol] 121 mg/dL High 65 - 99 mg/dL [facility] HCO3 [Moles/Vol] 27 mmol/L 21 - 32 mmol/L [facility] Interpretation and review of laboratory results Abnormal [facility] Potassium [Moles/Vol] 3.5 mmol/L 3.5 - 5.1 mmol/L [facility] Sodium [Moles/Vol] 144 mmol/L 135 - 145 mmol/L [facility] Urea nitrogen [Mass/Vol] 21 mg/dL 8 - 25 mg/d L [facility] Urea nitrogen/Creatinine [Mass ratio] 52.5 mg/mg High 10.0 - 20.0 [facility] CBCon 06-23-2024 AUTO NRBC 0.0 % Normal [facility] Comment on above: Performed By: #### 4 [id number] #### MH LAB [address] [place], [place] [address] Alpesh Yee M.D. [id number] AUTO NRBC ABS COUNT 0.00 K/mcL Normal 0.00-0.00 [facility] Comment on above: Performed By: #### 4 4014 #### MH LAB [address] [place], [place] [address] Alpesh Yee M.D. [id number] Erythrocyte distribution width (RBC) [Ratio] 12.3 % Normal 11.6-14.8 [facility] Comment on above: Performed By: #### 4 4014 #### LAB [address] [place], [place] [address] Alpesh Yee M.D. [id number] Hematocrit (Bld) [Volume fraction] 30.4 % Low 41.0-53.0 [facility] Comment on above: Performed By: #### 4 4014 #### LAB [address] [address] Alpesh Yee M.D. [id number] Hemoglobin (Bld) [Mass/Vol] 10.0 g/dL Low 13.5-17.5 [facility] Comment on above: Performed By: #### 4 4014 #### MH LAB [address] [address] Alpesh Yee M.D. [id number] MCH (RBC) [Entitic mass] 30.7 pg Normal 26.0-34.0 [facility] Comment on above: Performed By: #### 4 4014 #### LAB [address] [address] Alpesh Yee M.D. [id number] MCV (RBC) [Entitic vol] 93.3 fL Normal 80.0-100.0 [facility] Comment on above: Performed By: #### 4 4014 #### LAB [address] [address] Alpesh Yee M.D. [id number] MEAN CORPUSCULAR HEMOGLOBIN CONC 32.9 g/dL Normal 31.0-37.0 [facility] Comment on above: Performed By: #### 4 4014 #### LAB [address] [address] Alpesh Yee M.D. [id number] Platelet mean volume (Bld) [Entitic vol] 11.8 fL Normal 9.4-12.4 [facility] Comment on above: Performed By: #### 4 4014 #### LAB [address] [address] Alpesh Yee M.D. [id number] Platelets (Bld) [#/Vol] 148 10*3/uL Low 150-400 [facility] Comment on above: Performed By: #### 4 4014 #### LAB [address] [address] Alpesh Yee M.D. [id number] RBC (Bld) [#/Vol] 3.26 10*6/uL Low 4.50-5.90 [facility] Comment on above: Performed By: #### 4 4014 #### LAB [address] [address] Alpesh Yee M.D. [id number] WBC (Bld) [#/Vol] 7.29 10*3/uL Normal 4.50-11.00 [facility] Comment on above: Performed By: #### 4 4014 #### LAB [address] [address] Alpesh Yee M.D. [id number] AUTO NRBC 0.0 % Normal [facility] Comment on above: Performed By: #### 4 [id number] #### LAB [address] [address] Alpesh Yee M.D. [id number] AUTO NRBC ABS COUNT 0.00 K/mcL Normal 0.00-0.00 [facility] Comment on above: Performed By: #### 4 [id number] #### LAB [address] [address] Alpesh Yee M.D. [id number] Erythrocyte distribution width (RBC) [Ratio] 12.8 % Normal 11.6-14.8 [facility] Comment on above: Performed By: #### 4 [id number] #### LAB [address] [address] Alpesh Yee M.D. [id number] Hematocrit (Bld) [Volume fraction] 31.2 % Low 41.0-53.0 [facility] Comment on above: Performed By: #### 4 [id number] #### LAB [address] [address] Alpesh Yee M.D. [id number] Hemoglobin (Bld) [Mass/Vol] 10.1 g/dL Low 13.5-17.5 [facility] Comment on above: Performed By: #### 4 [id number] #### LAB [address] [address] Alpesh Yee M.D. [id number] MCH (RBC) [Entitic mass] 30.2 pg Normal 26.0-34.0 [facility] Comment on above: Performed By: #### 4 [id number] #### LAB [address] [address] Alpesh Yee M.D. [id number] MCV (RBC) [Entitic vol] 93.4 fL Normal 80.0-100.0 [facility] Comment on above: Performed By: #### 4 [id number] #### LAB [address] [address] Alpesh Yee M.D. [id number] MEAN CORPUSCULAR HEMOGLOBIN CONC 32.4 g/dL Normal 31.0-37.0 [facility] Comment on above: Performed By: #### 4 [id number] #### LAB [address] [address] Alpesh Yee M.D. [id number] Platelet mean volume (Bld) [Entitic vol] 11.5 fL Normal 9.4-12.4 [facility] Comment on above: Performed By: #### 4 [id number] #### LAB [address] [address] Alpesh Yee M.D. [id number] Platelets (Bld) [#/Vol] 144 10*3/uL Low 150-400 [facility] Comment on above: Performed By: #### 4 [id number] #### LAB [address] [address] Alpesh Yee M.D. [id number] RBC (Bld) [#/Vol] 3.34 10*6/uL Low 4.50-5.90 [facility] Comment on above: Performed By: #### 4 [id number] #### LAB [address] [address] Alpesh Yee M.D. [id number] WBC (Bld) [#/Vol] 7.51 10*3/uL Normal 4.50-11.00 [facility] Comment on above: Performed By: #### 4 [id number] #### [facility] [address] [facility] [place] [place] [address] Alpesh Yee M.D. [id number] CBC panel Auto (Bld)on 06-23 Erythrocyte distribution width (RBC) [Entitic vol] 12.3 % 11.6 - 14.8 % [facility] Hematocrit (Bld) [Volume fraction] 30.4 % Low 41.0 - 53.0 % [facility] Hemoglobin (Bld) [Mass/Vol] 10 g/dL Low 13.5 - 17.5 g/dL [facility] Interpretation and review of laboratory results Abnormal [facility] MCH (RBC) [Entitic mass] 30.7 pg 26. 0 - 34.0 pg [facility] MCHC (RBC) [Mass/Vol] 32.9 g/dL 31.0 - 37.0 g/dL [facility] MCV (RBC) [Entitic vol] 93.3 fL 80.0 - 100.0 fL [facility] Nucleated RBC (Bld) [#/Vol] 0 10*3/uL [facility] Nucleated RBC/100 WBC (Bld) [Ratio] 0 % [facility] Platelet mean volume (Bld) [Entitic vol] 11.8 fL 9.4 - 12.4 fL [facility] Platelets (Bld) [#/Vol] 148 10*3/uL Low [facility] RBC (Bld) [#/Vol] 3.26 10*6/uL Low [facility] WBC (Bld) [#/Vol] 7.29 10*3/uL [facility] Erythrocyte distribution width (RBC) [Entitic vol] 12.8 % 11.6 - 14.8 % [place] [facility] Hematocrit (Bld) [Volume fraction] 31.2 % Low 41.0 - 53.0 % [facility] Hemoglobin (Bld) [Mass/Vol] 10.1 g/dL Low 13.5 - 17.5 g/dL [facility] Interpretation and review of laboratory results Abnormal [facility] MCH (RBC) [Entitic mass] 30.2 pg 26. 0 - 34.0 pg [facility] MCHC (RBC) [Mass/Vol] 32.4 g/dL 31.0 - 37.0 g/dL [facility] MCV (RBC) [Entitic vol] 93.4 fL 80.0 - 100.0 fL [facility] Nucleated RBC (Bld) [#/Vol] 0 10*3/uL [facility] Nucleated RBC/100 WBC (Bld) [Ratio] 0 % [facility] Platelet mean volume (Bld) [Entitic vol] 11.5 fL 9.4 - 12.4 fL [facility] Platelets (Bld) [#/Vol] 144 10*3/uL Low [facility] RBC (Bld) [#/Vol] 3.34 10*6/uL Low [facility] WBC (Bld) [#/Vol] 7.51 10*3/uL [facility] Erythrocyte distribution width (RBC) [Entitic vol] 12.7 % 11.6 - 14.8 % [facility] Hematocrit (Bld) [Volume fraction] 31.2 % Low 41.0 - 53.0 % [facility] Hemoglobin (Bld) [Mass/Vol] 10.2 g/dL Low 13.5 - 17.5 g/dL [facility] Interpretation and review of laboratory results Abnormal [facility] MCH (RBC) [Entitic mass] 30.9 pg 26. 0 - 34.0 pg [facility] MCHC (RBC) [Mass/Vol] 32.7 g/dL 31.0 - 37.0 g/dL [facility] MCV (RBC) [Entitic vol] 94.5 fL 80.0 - 100.0 fL [facility] Nucleated RBC (Bld) [#/Vol] 0 10*3/uL [facility] Nucleated RBC/100 WBC (Bld) [Ratio] 0 % [facility] Platelet mean volume (Bld) [Entitic vol] 12.1 fL 9.4 - 12.4 fL [facility] Platelets (Bld) [#/Vol] 148 10*3/uL Low [facility] RBC (Bld) [#/Vol] 3.3 10*6/uL Low [facility]th WBC (Bld) [#/Vol] 6.62 10*3/uL [facility] Glucose (Bld) [Mass/Vol]on 08-23-2023 Glucose [Mass/Vol] 92 mg/dL 65 - 99 mg/dL [facility] Interpretation and review of laboratory results Normal [facility] Glucose [Mass/Vol] 98 mg/dL 65 - 99 mg/dL [facility] Interpretation and review of laboratory results Normal [facility] Glucose [Mass/Vol] 101 mg/dL High 65 - 99 mg/dL [facility] Interpretation and review of laboratory results Abnormal [facility] Glucose [Mass/Vol] 110 mg/dL High 65 - 99 mg/dL [facility] Interpretation and review of laboratory results Abnormal [facility] Glucose [Mass/Vol] 96 mg/dL 65 - 99 mg/dL [facility] Interpretation and review of laboratory results Normal [facility] Glucose [Mass/Vol] 112 mg/dL High 65 - 99 mg/dL [facility] Interpretation and review of laboratory results Abnormal [facility] MAGNESIUM LEVELon 06-23-2024 Magnesium [Mass/Vol] 2.0 mg/dL Normal 1.6-2.4 [facility] [place] Comment on above: Performed By: #### 4 [id number] #### MH LAB [address] [address] Alpesh Yee M.D. [id number] Magnesium [Mass/Vol] 1.8 mg/dL Normal 1.6-2.4 [facility] [place] Comment on above: Performed By: #### 4 6109 ####MH LAB [address] [address] Alpesh Yee M.D. [id number] Magnesium Levelon 06-23-2024 Magnesium [Mass/Vol] 2 mg/dL 1.6 - 2 .4 mg/dL [facility] Magnesium [Mass/Vol] 1.8 mg/dL 1.6 - 2 .4 mg/dL [facility] No Panel Informationon 06-23 Interpretation and review of laboratory results Normal [facility] Interpretation and review of laboratory results Normal [facility] PHOSPHORUSon 06-23-2024 Phosphate [Mass/Vol] 3.0 mg/dL Normal 2.7-4.5 [facility] [place] Comment on above: Performed By: #### 4 6932 #### LAB [address] [place], [place] [address] Alpesh Yee M.D. [id number] POC GLUCOSE - [facility] 024 Glucose [Mass/Vol] 92 mg/dL Normal 65-99 [facility] Comment on above: Performed By: #### 4 4014 #### LAB [address] [address] Alpesh Yee M.D. [id number] Glucose [Mass/Vol] 98 mg/dL Normal [address] [place] [address] Comment on above: Performed By: #### 4 4014 #### MH LAB [address] [address] Alpesh Yee M.D. [id number] Glucose [Mass/Vol] 101 mg/dL High [address] [place] [address] Comment on above: Performed By: #### 4 4014 #### LAB [address] [address] Alpesh Yee M.D. [id number] Glucose [Mass/Vol] 110 mg/dL High [address] [place] [address] Comment on above: Performed By: #### 4 4014 #### LAB [address] [address] Alpesh Yee M.D. [id number] Glucose [Mass/Vol] 96 mg/dL Normal [address] [place] [address] Comment on above: Performed By: #### 4 4014 #### LAB [address] [address] Alpesh Yee M.D. [id number] Glucose [Mass/Vol] 112 mg/dL High [address] [place] [address] Comment on above: Performed By: #### 4 4014 #### MH LAB [address] [address] Alpesh Yee M.D. [id number] POTASSIUM LEVELon 06-23-2024 Potassium [Moles/Vol] 3.7 mmol/L Normal 3.5-5.1 [facility] Comment on above: Performed By: #### 4 6932 #### MH LAB [address] [address] Alpesh Yee M.D. [id number] Phosphoruson 06-23-2024 Phosphate [Mass/Vol] 3 mg/dL 2.7 - 4 .5 mg/dL [facility] Potassium Levelon 06-23-2024 Potassium [Moles/Vol] 3.7 mmol/L 3.5 - 5.1 mmol/L [facility] BASIC METABOLIC PANELon 05-26 Anion gap [Moles/Vol] 12 mmol/L Normal 10-20 [facility] Comment on above: Order Comment: [facility] has implemented the eGFR calculation approach that does not have a coefficient for race that conforms to the NKF-ASN Task Force Recommendations. Performed By: #### 4 7222 #### LAB [address] [place], [place] [address] Alpesh Yee M.D. [id number] Calcium [Mass/Vol] 8.4 mg/dL Normal 8.4-10.2 [facility] Comment on above: Order Comment: [facility] has implemented the eGFR calculation approach that does not have a coefficient for race that conforms to the NKF-ASN Task Force Recommendations. Performed By: #### 4 7222 #### LAB [address] [place], [place] [address] Alpesh Yee M.D. [id number] Chloride [Moles/Vol] 109 mmol/L High 98-108 [facility] Comment on above: Order Comment: [facility] has implemented the eGFR calculation approach that does not have a coefficient for race that conforms to the NKF-ASN Task Force Recommendations. Performed By: #### 4 7222 #### LAB [address] [place], [place] [address] Alpesh Yee M.D. [id number] Creatinine [Mass/Vol] 0.40 mg/dL Low 0.50-1.30 [facility] Comment on above: Order Comment: [facility] has implemented the eGFR calculation approach that does not have a coefficient for race that conforms to the NKF-ASN Task Force Recommendations. Performed By: #### 4 7222 #### LAB [address] [place], [place] [address] Alpesh Yee M.D. [id number] EGFR 130 mL/min/1.73 m2 Normal >=60 [facility] Comment on above: Order Comment: [facility] has implemented the eGFR calculation approach that does not have a coefficient for race that conforms to the NKF-ASN Task Force Recommendations. Result Comment: Renetta mated GFR was calculated using the 2020 CKD-EPI creatinine equation. Performed By: #### 4 7222 #### LAB [address] [address] Alpesh Yee M.D. [id number] Glucose [Mass/Vol] 121 mg/dL High 65-99 [facility] Comment on above: Order Comment: [facility] has implemented the eGFR calculation approach that does not have a coefficient for race that conforms to the NKF-ASN Task Force Recommendations. Performed By: #### 4 7222 #### LAB [address] [place] [address] Alpesh Yee M.D. [id number] HCO3 (Bld) [Moles/Vol] 27 mmol/L Normal 21-32 [facility] Comment on above: Order Comment: [facility] has implemented the eGFR calculation approach that does not have a coefficient for race that conforms to the NKF-ASN Task Force Recommendations. Performed By: #### 4 7222 #### LAB [address] [place] [address] Alpesh Yee M.D. [id number] Potassium [Moles/Vol] 3.5 mmol/L Normal 3.5-5.1 [facility] Comment on above: Order Comment: [facility] has implemented the eGFR calculation approach that does not have a coefficient for race that conforms to the NKF-ASN Task Force Recommendations. Performed By: #### 4 7222 #### MH LAB [address] [place] [address] Alpesh Yee M.D. [id number] Sodium [Moles/Vol] 144 mmol/L Normal 135-145 [facility] Comment on above: Order Comment: [facility] has implemented the eGFR calculation approach that does not have a coefficient for race that conforms to the NKF-ASN Task Force Recommendations. Performed By: #### 4 7222 #### LAB [address] [place], [place] [address] Alpesh Yee M.D. [id number] Urea nitrogen [Mass/Vol] 21 mg/dL Normal 8-25 [facility] Comment on above: Order Comment: [facility] has implemented the eGFR calculation approach that does not have a coefficient for race that conforms to the NKF-ASN Task Force Recommendations. Performed By: #### 4 7222 #### LAB [address] [place] [address] Alpesh Yee M.D. [id number] Urea nitrogen/Creatinine [Mass ratio] 52.5 mg/mg High 10.0-20.0 [facility] Comment on above: Order Comment: [facility] has implemented the eGFR calculation approach that does not have a coefficient for race that conforms to the NKF-ASN Task Force Recommendations. Performed By: #### 4 7222 #### LAB [address] [place] [address] Alpesh Yee M.D. [id number] CALCIUM, IONIZEDon CALCIUM IONIZED 4.4 mg/dL Low 4.5-5.3 [facility] Comment on above: Performed By: #### 4 5190 #### LAB [address] [place] [id number] Alpesh Yee M.D. [id number] CBCon 06-22-2024 AUTO NRBC 0.0 % Normal [facility] Comment on above: Performed By: #### 4 [id number] #### LAB [address] [place], [place] [address] Alpesh Yee M.D. [id number] AUTO NRBC ABS COUNT 0.00 K/mcL Normal 0.00-0.00 [facility] Comment on above: Performed By: #### 4 [id number] #### LAB [address] [place], [place] [address] Alpesh Yee M.D. [id number] Erythrocyte distribution width (RBC) [Ratio] 12.7 % Normal 11.6-14.8 [facility] Comment on above: Performed By: #### 4 [id number] #### LAB [address] [place] [address] Alpesh Yee M.D. [id number] Hematocrit (Bld) [Volume fraction] 31.2 % Low 41.0-53.0 [facility] Comment on above: Performed By: #### 4 [id number] #### LAB [address] [place] [address] Alpesh Yee M.D. [id number] Hemoglobin (Bld) [Mass/Vol] 10.2 g/dL Low 13.5-17.5 [facility] Comment on above: Performed By: #### 4 [id number] #### LAB [address] [place] [address] Alpesh Yee M.D. [id number] MCH (RBC) [Entitic mass] 30.9 pg Normal 26.0-34.0 [facility] Comment on above: Performed By: #### 4 [id number] #### LAB [address] [place] [address] Alpesh Yee M.D. [id number] MCV (RBC) [Entitic vol] 94.5 fL Normal 80.0-100.0 [facility] Comment on above: Performed By: #### 4 [id number] #### LAB [address] [place] [address] Alpesh Yee M.D. [id number] MEAN CORPUSCULAR HEMOGLOBIN CONC 32.7 g/dL Normal 31.0-37.0 [facility] Comment on above: Performed By: #### 4 [id number] #### LAB [address] [place] [address] Alpesh Yee M.D. [id number] Platelet mean volume (Bld) [Entitic vol] 12.1 fL Normal 9.4-12.4 [facility] Comment on above: Performed By: #### 4 [id number] #### LAB [address] [place] [address] Alpesh Yee M.D. [id number] Platelets (Bld) [#/Vol] 148 10*3/uL Low 150-400 [facility] Comment on above: Performed By: #### 4 [id number] #### LAB [address] [place] [address] Alpesh Yee M.D. [id number] RBC (Bld) [#/Vol] 3.30 10*6/uL Low 4.50-5.90 [facility] Comment on above: Performed By: #### 4 [id number] #### LAB [address] [place] [address] Alpesh Yee M.D. [id number] WBC (Bld) [#/Vol] 6.62 10*3/uL Normal 4.50-11.00 [facility] Comment on above: Performed By: #### 4 [id number] #### LAB [address] [place] [address] Alpesh Yee M.D. [id number] AUTO NRBC 0.0 % Normal [facility] Comment on above: Performed By: #### 4 7222 #### LAB [address] [place] [address] Alpesh Yee M.D. [id number] AUTO NRBC ABS COUNT 0.00 K/mcL Normal 0.00-0.00 [facility] Comment on above: Performed By: #### 4 7222 #### LAB [address] [place] [address] Alpesh Yee M.D. [id number] Erythrocyte distribution width (RBC) [Ratio] 12.7 % Normal 11.6-14.8 [facility] Comment on above: Performed By: #### 4 7222 #### LAB [address] [place] [address] Alpesh Yee M.D. [id number] Hematocrit (Bld) [Volume fraction] 32.5 % Low 41.0-53.0 [facility] Comment on above: Performed By: #### 4 7222 #### LAB [address] [place] [address] Alpesh Yee M.D. [id number] Hemoglobin (Bld) [Mass/Vol] 10.7 g/dL Low 13.5-17.5 [facility] Comment on above: Performed By: #### 4 7222 #### LAB [address] [place] [address] Alpesh Yee M.D. [id number] MCH (RBC) [Entitic mass] 30.5 pg Normal 26.0-34.0 [facility] Comment on above: Performed By: #### 4 7222 #### MH LAB [address] [place] [address] Alpesh Yee M.D. [id number] MCV (RBC) [Entitic vol] 92.6 fL Normal 80.0-100.0 [facility] Comment on above: Performed By: #### 4 7222 #### LAB [address] [place] [address] Alpesh Yee M.D. [id number] MEAN CORPUSCULAR HEMOGLOBIN CONC 32.9 g/dL Normal 31.0-37.0 [facility] Comment on above: Performed By: #### 4 7222 #### LAB [address] [place] [address] Alpesh Yee M.D. [id number] Platelet mean volume (Bld) [Entitic vol] 11.5 fL Normal 9.4-12.4 [facility] Comment on above: Performed By: #### 4 7222 #### LAB [address] [place] [address] Alpesh Yee M.D. [id number] Platelets (Bld) [#/Vol] 156 10*3/uL Normal 150-400 [facility] Comment on above: Performed By: #### 4 7222 #### LAB [address] [place] [address] Alpesh Yee M.D. [id number] RBC (Bld) [#/Vol] 3.51 10*6/uL Low 4.50-5.90 [facility] Comment on above: Performed By: #### 4 7222 #### LAB [address] [address] Alpesh Yee M.D. [id number] WBC (Bld) [#/Vol] 8.35 10*3/uL Normal 4.50-11.00 [facility] Comment on above: Performed By: #### 4 7222 #### LAB [address] [address] Alpesh Yee M.D. [id number] AUTO NRBC 0.0 % Normal [facility] Comment on above: Performed By: #### 4 [id number] #### LAB [address] [address] Alpesh Yee M.D. [id number] AUTO NRBC ABS COUNT 0.00 K/mcL Normal 0.00-0.00 [facility] Comment on above: Performed By: #### 4 [id number] #### LAB [address] [address] Alpesh Yee M.D. [id number] Erythrocyte distribution width (RBC) [Ratio] 12.7 % Normal 11.6-14.8 [facility] Comment on above: Performed By: #### 4 [id number] #### LAB [address] [address] Alpesh Yee M.D. [id number] Hematocrit (Bld) [Volume fraction] 33.0 % Low 41.0-53.0 [facility] Comment on above: Performed By: #### 4 [id number] #### LAB [address] [address] Alpesh Yee M.D. [id number] Hemoglobin (Bld) [Mass/Vol] 10.8 g/dL Low 13.5-17.5 [facility] Comment on above: Performed By: #### 4 [id number] #### LAB [address] [address] Alpesh Yee M.D. [id number] MCH (RBC) [Entitic mass] 30.7 pg Normal 26.0-34.0 [facility] Comment on above: Performed By: #### 4 [id number] #### LAB [address] [address] Alpesh Yee M.D. [id number] MCV (RBC) [Entitic vol] 93.8 fL Normal 80.0-100.0 [facility] Comment on above: Performed By: #### 4 [id number] #### LAB [address] [address] Alpesh Yee M.D. [id number] MEAN CORPUSCULAR HEMOGLOBIN CONC 32.7 g/dL Normal 31.0-37.0 [facility] Comment on above: Performed By: #### 4 [id number] #### LAB [address] [address] Alpesh Yee M.D. [id number] Platelet mean volume (Bld) [Entitic vol] 11.5 fL Normal 9.4-12.4 [facility] Comment on above: Performed By: #### 4 [id number] #### LAB [address] [address] Alpesh Yee M.D. [id number] Platelets (Bld) [#/Vol] 151 10*3/uL Normal 150-400 [facility] Comment on above: Performed By: #### 4 [id number] #### LAB [address] [address] Alpesh Yee M.D. [id number] RBC (Bld) [#/Vol] 3.52 10*6/uL Low 4.50-5.90 [facility] Comment on above: Performed By: #### 4 [id number] #### LAB [address] [address] Alpesh Yee M.D. [id number] WBC (Bld) [#/Vol] 10.00 10*3/uL Normal 4.50-11.00 [facility] Comment on above: Performed By: #### 4 [id number] #### LAB [address] [address] Alpesh Yee M.D. [id number] AUTO NRBC 0.0 % Normal [facility] Comment on above: Performed By: #### 4 7222 #### LAB [address] [address] Alpesh Yee M.D. [id number] AUTO NRBC ABS COUNT 0.00 K/mcL Normal 0.00-0.00 [facility] Comment on above: Performed By: #### 4 7222 #### LAB [address] [address] Alpesh Yee M.D. [id number] Erythrocyte distribution width (RBC) [Ratio] 13.2 % Normal 11.6-14.8 [facility] Comment on above: Performed By: #### 4 7222 #### LAB [address] [address] Alpesh Yee M.D. [id number] Hematocrit (Bld) [Volume fraction] 30.6 % Low 41.0-53.0 [facility] Comment on above: Performed By: #### 4 [id number] #### LAB [address] [address] Alpesh Yee M.D. [id number] Hemoglobin (Bld) [Mass/Vol] 11.0 g/dL Low 13.5-17.5 [facility] Comment on above: Performed By: #### 4 [id number] #### LAB [address] [address] Alpesh Yee M.D. [id number] MCH (RBC) [Entitic mass] 34.1 pg High 26.0-34.0 [facility] Comment on above: Performed By: #### 4 [id number] #### LAB [address] [address] Alpesh Yee M.D. [id number] MCV (RBC) [Entitic vol] 94.7 fL Normal 80.0-100.0 [facility] Comment on above: Performed By: #### 4 7222 #### LAB [address] [address] Alpesh Yee M.D. [id number] MEAN CORPUSCULAR HEMOGLOBIN CONC 35.9 g/dL Normal 31.0-37.0 [facility] Comment on above: Performed By: #### 4 [id number] #### LAB [address] [address] Alpesh Yee M.D. [id number] Platelet mean volume (Bld) [Entitic vol] 12.3 fL Normal 9.4-12.4 [facility] Comment on above: Performed By: #### 4 7222 #### LAB [address] [address] Alpesh Yee M.D. [id number] Platelets (Bld) [#/Vol] 141 10*3/uL Low 150-400 [facility] Comment on above: Performed By: #### 4 7222 #### LAB [address] [address] Alpesh Yee M.D. [id number] RBC (Bld) [#/Vol] 3.23 10*6/uL Low 4.50-5.90 [facility] Comment on above: Performed By: #### 4 7222 #### LAB [address] [address] Aplesh Yee M.D. [id number] WBC (Bld) [#/Vol] 9.11 10*3/uL Normal 4.50-11.00 [facility] Comment on above: Performed By: #### 4 [id number] #### LAB [address] [address] Alpesh Yee M.D. [id number] CBC panel Auto (Bld)on 06-22 Erythrocyte distribution width (RBC) [Entitic vol] 12.7 % 11.6 - 14.8 % [facility] Hematocrit (Bld) [Volume fraction] 32.5 % Low 41.0 - 53.0 % [facility] Hemoglobin (Bld) [Mass/Vol] 10.7 g/dL Low 13.5 - 17.5 g/dL [facility] Interpretation and review of laboratory results Abnormal [facility] MCH (RBC) [Entitic mass] 30.5 pg 26. 0 - 34.0 pg [facility] MCHC (RBC) [Mass/Vol] 32.9 g/dL 31.0 - 37.0 g/dL [facility] MCV (RBC) [Entitic vol] 92.6 fL 80.0 - 100.0 fL [facility] Nucleated RBC (Bld) [#/Vol] 0 10*3/uL [facility] Nucleated RBC/100 WBC (Bld) [Ratio] 0 % [facility] Platelet mean volume (Bld) [Entitic vol] 11.5 fL 9.4 - 12.4 fL [facility] Platelets (Bld) [#/Vol] 156 10*3/uL [facility] RBC (Bld) [#/Vol] 3.51 10*6/uL Low [facility] WBC (Bld) [#/Vol] 8.35 10*3/uL [facility] Erythrocyte distribution width (RBC) [Entitic vol] 12.7 % 11.6 - 14.8 % [facility] Hematocrit (Bld) [Volume fraction] 33 % Low 41.0 - 53.0 % [facility] Hemoglobin (Bld) [Mass/Vol] 10.8 g/dL Low 13.5 - 17.5 g/dL [facility] Interpretation and review of laboratory results Abnormal [facility] MCH (RBC) [Entitic mass] 30.7 pg 26. 0 - 34.0 pg [facility] MCHC (RBC) [Mass/Vol] 32.7 g/dL 31.0 - 37.0 g/dL [facility] MCV (RBC) [Entitic vol] 93.8 fL 80.0 - 100.0 fL [facility] Nucleated RBC (Bld) [#/Vol] 0 10*3/uL [facility] Nucleated RBC/100 WBC (Bld) [Ratio] 0 % [facility] Platelet mean volume (Bld) [Entitic vol] 11.5 fL 9.4 - 12.4 fL [facility] Platelets (Bld) [#/Vol] 151 10*3/uL [facility] RBC (Bld) [#/Vol] 3.52 10*6/uL Low [facility] WBC (Bld) [#/Vol] 10 10*3/uL [facility] Erythrocyte distribution width (RBC) [Entitic vol] 13.2 % 11.6 - 14.8 % [facility] Hematocrit (Bld) [Volume fraction] 30.6 % Low 41.0 - 53.0 % [facility] Hemoglobin (Bld) [Mass/Vol] 11 g/dL Low 13.5 - 17.5 g/dL [facility] Interpretation and review of laboratory results Abnormal [facility] MCH (RBC) [Entitic mass] 34.1 pg High 26. 0 - 34.0 pg [facility] MCHC (RBC) [Mass/Vol] 35.9 g/dL 31.0 - 37.0 g/dL [facility] MCV (RBC) [Entitic vol] 94.7 fL 80.0 - 100.0 fL [facility] Nucleated RBC (Bld) [#/Vol] 0 10*3/uL [facility] Nucleated RBC/100 WBC (Bld) [Ratio] 0 % [facility] Platelet mean volume (Bld) [Entitic vol] 12.3 fL 9.4 - 12.4 fL [facility] Platelets (Bld) [#/Vol] 141 10*3/uL Low [facility] RBC (Bld) [#/Vol] 3.23 10*6/uL Low [facility] WBC (Bld) [#/Vol] 9.11 10*3/uL [facility] COMPREHENSIVE METABOLIC PANE Omar 06-22-2024 Albumin [Mass/Vol] 3.1 g/dL Low 3.2-5.2 [facility] Comment on above: Order Comment: Injur y/Trauma or Illness?:Illness/Other How long have you had these symptoms (acute/chronic)?:Acute Reason for exam?:displaced PEG tube, concern for gastric perforation History of cancer?:u Surgeries, chemotherapy, or radiation?:u Type of Exam?:Initial Additional signs and symptoms?:n Performed By: #### 4 6136 #### LAB [address] [place], [place] [address] Alpesh Yee M.D. [id number] ALP [Catalytic activity/Vol] 53 U/L Normal 40-150 [facility] Comment on above: Order Comment: Injur y/Trauma or Illness?:Illness/Other How long have you had these symptoms (acute/chronic)?:Acute Reason for exam?:displaced PEG tube, concern for gastric perforation History of cancer?:u Surgeries, chemotherapy, or radiation?:u Type of Exam?:Initial Additional signs and symptoms?:n Performed By: #### 4 6126 #### LAB [address] [address] Alpesh Yee M.D. [id number] ALT [Catalytic activity/Vol] 25 U/L Normal 0-50 U/L [facility] Comment on above: Order Comment: Injur y/Trauma or Illness?:Illness/Other How long have you had these symptoms (acute/chronic)?:Acute Reason for exam?:displaced PEG tube, concern for gastric perforation History of cancer?:u Surgeries, chemotherapy, or radiation?:u Type of Exam?:Initial Additional signs and symptoms?:n Performed By: #### 4 6126 #### LAB [address] [address] Alpesh Yee M.D. [id number] Anion gap [Moles/Vol] 15 mmol/L Normal 10-20 [facility] Comment on above: Order Comment: Injur y/Trauma or Illness?:Illness/Other How long have you had these symptoms (acute/chronic)?:Acute Reason for exam?:displaced PEG tube, concern for gastric perforation History of cancer?:u Surgeries, chemotherapy, or radiation?:u Type of Exam?:Initial Additional signs and symptoms?:n Performed By: #### 4 [id number] #### LAB [address] [address] Alpesh Yee M.D. [id number] AST [Catalytic activity/Vol] 61 U/L High 0-50 U/L [facility] Comment on above: Order Comment: Injur y/Trauma or Illness?:Illness/Other How long have you had these symptoms (acute/chronic)?:Acute Reason for exam?:displaced PEG tube, concern for gastric perforation History of cancer?:u Surgeries, chemotherapy, or radiation?:u Type of Exam?:Initial Additional signs and symptoms?:n Performed By: #### 4 6101 #### LAB [address] [address] Alpesh Yee M.D. [id number] Bilirubin [Mass/Vol] 0.6 mg/dL Normal 0.0-1.3 [facility] Comment on above: Order Comment: Injur y/Trauma or Illness?:Illness/Other How long have you had these symptoms (acute/chronic)?:Acute Reason for exam?:displaced PEG tube, concern for gastric perforation History of cancer?:u Surgeries, chemotherapy, or radiation?:u Type of Exam?:Initial Additional signs and symptoms?:n Performed By: #### 4 6142 #### LAB [address] [address] Alpesh Yee M.D. [id number] Calcium [Mass/Vol] 8.5 mg/dL Normal 8.4-10.2 [facility] Comment on above: Order Comment: Injur y/Trauma or Illness?:Illness/Other How long have you had these symptoms (acute/chronic)?:Acute Reason for exam?:displaced PEG tube, concern for gastric perforation History of cancer?:u Surgeries, chemotherapy, or radiation?:u Type of Exam?:Initial Additional signs and symptoms?:n Performed By: #### 4 6126 #### LAB [address] [address] Alpesh Yee M.D. [id number] Chloride [Moles/Vol] 112 mmol/L High 98-108 [facility] Comment on above: Order Comment: Injur y/Trauma or Illness?:Illness/Other How long have you had these symptoms (acute/chronic)?:Acute Reason for exam?:displaced PEG tube, concern for gastric perforation History of cancer?:u Surgeries, chemotherapy, or radiation?:u Type of Exam?:Initial Additional signs and symptoms?:n Performed By: #### 4 6126 #### LAB [address] [address] Alpesh Yee M.D. [id number] Creatinine [Mass/Vol] 0.40 mg/dL Low 0.50-1.30 [facility] Comment on above: Order Comment: Injur y/Trauma or Illness?:Illness/Other How long have you had these symptoms (acute/chronic)?:Acute Reason for exam?:displaced PEG tube, concern for gastric perforation History of cancer?:u Surgeries, chemotherapy, or radiation?:u Type of Exam?:Initial Additional signs and symptoms?:n Performed By: #### 4 6180 ####[facility] LAB [address] [id number] Alpesh Yee M.D. [id number] EGFR 130 mL/min/1.73 m2 Normal >=60 [facility] Comment on above: Order Comment: Injur y/Trauma or Illness?:Illness/Other How long have you had these symptoms (acute/chronic)?:Acute Reason for exam?:displaced PEG tube, concern for gastric perforation History of cancer?:u Surgeries, chemotherapy, or radiation?:u Type of Exam?:Initial Additional signs and symptoms?:n Result Comment: Renetta mated GFR was calculated using the 2020 CKD-EPI creatinine equation. Performed By: #### 4 6126 ####[facility] [address] [address] Alpesh Yee M.D. [id number] Glucose [Mass/Vol] 107 mg/dL High 65-99 [facility] Comment on above: Order Comment: Injur y/Trauma or Illness?:Illness/Other How long have you had these symptoms (acute/chronic)?:Acute Reason for exam?:displaced PEG tube, concern for gastric perforation History of cancer?:u Surgeries, chemotherapy, or radiation?:u Type of Exam?:Initial Additional signs and symptoms?:n Performed By: #### 4 6126 #### LAB [address] [address] Alpesh Yee M.D. [id number] HCO3 (Bld) [Moles/Vol] 24 mmol/L Normal 21-32 [facility] Comment on above: Order Comment: Injur y/Trauma or Illness?:Illness/Other How long have you had these symptoms (acute/chronic)?:Acute Reason for exam?:displaced PEG tube, concern for gastric perforation History of cancer?:u Surgeries, chemotherapy, or radiation?:u Type of Exam?:Initial Additional signs and symptoms?:n Performed By: #### 4 6126 #### LAB [address] [address] Alpesh Yee M.D. [id number] Potassium [Moles/Vol] 3.9 mmol/L Normal 3.5-5.1 [facility] Comment on above: Order Comment: Injur y/Trauma or Illness?:Illness/Other How long have you had these symptoms (acute/chronic)?:Acute Reason for exam?:displaced PEG tube, concern for gastric perforation History of cancer?:u Surgeries, chemotherapy, or radiation?:u Type of Exam?:Initial Additional signs and symptoms?:n Performed By: #### 4 6126 #### LAB [address] [address] Alpesh Yee M.D. [id number] Protein [Mass/Vol] 5.2 g/dL Low 6.0-8.0 [facility] Comment on above: Order Comment: Injur y/Trauma or Illness?:Illness/Other How long have you had these symptoms (acute/chronic)?:Acute Reason for exam?:displaced PEG tube, concern for gastric perforation History of cancer?:u Surgeries, chemotherapy, or radiation?:u Type of Exam?:Initial Additional signs and symptoms?:n Performed By: #### 4 6126 #### LAB [address] [address] Alpesh Yee M.D. [id number] Sodium [Moles/Vol] 147 mmol/L High 135-145 [facility] Comment on above: Order Comment: Injur y/Trauma or Illness?:Illness/Other How long have you had these symptoms (acute/chronic)?:Acute Reason for exam?:displaced PEG tube, concern for gastric perforation History of cancer?:u Surgeries, chemotherapy, or radiation?:u Type of Exam?:Initial Additional signs and symptoms?:n Performed By: #### 4 6126 #### LAB [address] [address] Alpesh Yee M.D. [id number] Urea nitrogen [Mass/Vol] 21 mg/dL Normal 8-25 [facility] Comment on above: Order Comment: Injur y/Trauma or Illness?:Illness/Other How long have you had these symptoms (acute/chronic)?:Acute Reason for exam?:displaced PEG tube, concern for gastric perforation History of cancer?:u Surgeries, chemotherapy, or radiation?:u Type of Exam?:Initial Additional signs and symptoms?:n Performed By: #### 4 6126 #### LAB [address] [place], [place] [address] Alpesh Yee M.D. [id number] Urea nitrogen/Creatinine [Mass ratio] 52.5 mg/mg High 10.0-20.0 [facility] Comment on above: Order Comment: Injur y/Trauma or Illness?:Illness/Other How long have you had these symptoms (acute/chronic)?:Acute Reason for exam?:displaced PEG tube, concern for gastric perforation History of cancer?:u Surgeries, chemotherapy, or radiation?:u Type of Exam?:Initial Additional signs and symptoms?:n Performed By: #### 4 6126 #### LAB [address] [place], [place] [address] Alpseh Yee M.D. [id number] Calcium, IonizedOrdered By: Brian Bingham on 06-22-2024 Calcium.ionized [Mass/Vol] 4.4 mg/dL Low 4.5 - 5.3 mg/dL [facility] Calcium.ionized [Mass/Vol]Or dered By: Brian Bingham on 06-22-2024 Interpretation and review of laboratory results Abnormal [facility] Comprehensive metabolic 2000 panelon 06-22-2024 Albumin [Mass/Vol] 3.1 g/dL Low 3.2 - 5.2 g/dL [facility] ALP [Catalytic activity/Vol] 53 U/L 40 - 150 U/L [facility] ALT [Catalytic activity/Vol] 25 U/L 0-50 U/L [facility] Anion gap [Moles/Vol] 15 mmol/L 10 - 2 0 mmol/L [facility] AST [Catalytic activity/Vol] 61 U/L High 0-50 U/L [facility] Bilirubin [Mass/Vol] 0.6 mg/dL 0.0 - 1 .3 mg/dL [facility] Calcium [Mass/Vol] 8.5 mg/dL 8.4 - 10. 2 mg/dL [facility] Chloride [Moles/Vol] 112 mmol/L High 98 - 10 8 mmol/L [facility] Creatinine [Mass/Vol] 0.4 mg/dL Low 0.50 - 1.30 mg/dL [facility] GFR/1.73 sq M.predicted CKD-EPI (S/P/Bld) [Vol rate/Area] 130 - PINF [facility] Glucose [Mass/Vol] 107 mg/dL High 65 - 99 mg/dL [facility] HCO3 [Moles/Vol] 24 mmol/L 21 - 32 mmol/L [facility] Interpretation and review of laboratory results Abnormal [facility] Potassium [Moles/Vol] 3.9 mmol/L 3.5 - 5.1 mmol/L [facility] Protein [Mass/Vol] 5.2 g/dL Low 6.0 - 8.0 g/dL [facility] Sodium [Moles/Vol] 147 mmol/L High 135 - 145 mmol/L [facility] Urea nitrogen [Mass/Vol] 21 mg/dL 8 - 25 mg/d L [facility] Urea nitrogen/Creatinine [Mass ratio] 52.5 mg/mg High 10.0 - 20.0 [facility] Glucose (Bld) [Mass/Vol]on 08-22-2023 Glucose [Mass/Vol] 127 mg/dL High 65 - 99 mg/dL [facility] Interpretation and review of laboratory results Abnormal [facility] Glucose [Mass/Vol] 116 mg/dL High 65 - 99 mg/dL [facility] Interpretation and review of laboratory results Abnormal [facility] Glucose [Mass/Vol] 117 mg/dL High 65 - 99 mg/dL [facility] Interpretation and review of laboratory results Abnormal [facility] Glucose [Mass/Vol] 129 mg/dL High 65 - 99 mg/dL [facility] Interpretation and review of laboratory results Abnormal [facility] Glucose [Mass/Vol] 106 mg/dL High 65 - 99 mg/dL [facility] Interpretation and review of laboratory results Abnormal [facility] Glucose [Mass/Vol] 109 mg/dL High 65 - 99 mg/dL [facility] Interpretation and review of laboratory results Abnormal [facility] MAGNESIUM LEVELon 06-22-2024 Magnesium [Mass/Vol] 2.0 mg/dL Normal 1.6-2.4 [facility] Comment on above: Order Comment: New P EG tube placed 06/18, pt has since removed the tube. Eval for perforation. Injury/Trauma or Illness?:Illness/Other How long have you had these symptoms (acute/chronic)?:Acute Reason for exam?:post peg tube placement on 06/18. patient pulled peg. Eval for possible perforation. diffuse abdominal pain Type of Exam?:Initial Additional signs and symptoms?:. Result Comment: This is a corrected result. Previous result was 3.4 mg/dL on 06/22/2024 at 0613 EST Performed By: #### 4 [id number] ####[facility] [address] [place], [place] [address] Alpesh Yee M.D. [id number] Magnesium LevelOrdered By: Juan Richards on 06-22-2024 Magnesium [Mass/Vol] 2 mg/dL 1.6 - 2 .4 mg/dL [facility] Magnesium [Mass/Vol]Ordered By: Mary Richards on 06-22-2024 Interpretation and review of laboratory results Normal [facility] PHOSPHORUSon 06-22-2024 Phosphate [Mass/Vol] 2.4 mg/dL Low 2.7-4.5 [facility] Comment on above: Result Comment: This is a corrected result. Previous result was 8.4 mg/dL on 06/22/2024 at 0613 EST Performed By: #### L [id number] #### [facility] [address] [address] Alpesh Yee M.D. [id number] POC GLUCOSE [facility] 024 Glucose [Mass/Vol] 127 mg/dL [address] Comment on above: Performed By: #### 4 4014 #### [facility] [address] [place], [place] [address] Alpesh Yee M.D. [id number] Glucose [Mass/Vol] 116 mg/dL [address] Comment on above: Performed By: #### 4 4014 #### [facility] [address] [place], [place] [address] Alpesh Yee M.D. [id number] Glucose [Mass/Vol] 117 mg/dL [address] Comment on above: Performed By: #### 4 4014 #### [facility] [address] [place], [place] [address] Alpesh Yee M.D. [id number] Glucose [Mass/Vol] 129 mg/dL [address] Comment on above: Performed By: #### 4 4014 #### [facility] [address] [place], [place] [address] Alpesh Yee M.D. [id number] Glucose [Mass/Vol] 106 mg/dL High [address] [place] [address] Comment on above: Performed By: #### 4 4014 #### [facility] [address] [place], [place] [address] Alpesh Yee M.D. [id number] Glucose [Mass/Vol] 109 mg/dL High [address] Comment on above: Performed By: #### 4 4014 #### LAB [address] [place] [id number] Alpesh Yee M.D. [id number] PREALBUMINon 06-22-2024 Prealbumin [Mass/Vol] 7.0 mg/dL Low 20.0-40.0 [facility] Comment on above: Result Comment: Spec imen Lipemic This is a corrected result. Previous result was <3.0 mg/dL on 06/22/2024 at 0613 EST Performed By: #### 4 4014 #### LAB [address] [place] [address] Alpesh Yee M.D. [id number] Phosphate [Mass/Vol]on 06-22 Interpretation and review of laboratory results Abnormal [facility] Phosphoruson 06-22-2024 Phosphate [Mass/Vol] 2.4 mg/dL Low 2.7 - 4 .5 mg/dL [facility] Prealbuminon 06-22-2024 Prealbumin [Mass/Vol] 7 mg/dL Low 20.0 - 40.0 mg/dL [facility] Prealbumin [Mass/Vol]on 05-26 Interpretation and review of laboratory results Abnormal [facility] BASIC METABOLIC PANELon 05-26 Anion gap [Moles/Vol] 14 mmol/L Normal 10-20 [facility] Comment on above: Order Comment: [facility] has implemented the eGFR calculation approach that does not have a coefficient for race that conforms to the NKF-ASN Task Force Recommendations. Performed By: #### 4 6124 ####[facility] [address] [place], [place] [address] Alpesh Yee M.D. [id number] Calcium [Mass/Vol] 7.8 mg/dL Low 8.4-10.2 [facility] Comment on above: Order Comment: [facility] has implemented the eGFR calculation approach that does not have a coefficient for race that conforms to the NKF-ASN Task Force Recommendations. Performed By: #### 4 6124 #### LAB [address] [place] [address] Alpesh Yee M.D. [id number] Chloride [Moles/Vol] 111 mmol/L High 98-108 [facility] Comment on above: Order Comment: [facility] has implemented the eGFR calculation approach that does not have a coefficient for race that conforms to the NKF-ASN Task Force Recommendations. Performed By: #### 4 6124 #### LAB [address] [place] [address] Alpesh Yee M.D. [id number] Creatinine [Mass/Vol] 0.52 mg/dL Normal 0.50-1.30 [facility] Comment on above: Order Comment: [facility] has implemented the eGFR calculation approach that does not have a coefficient for race that conforms to the NKF-ASN Task Force Recommendations. Performed By: #### 4 6124 #### LAB [address] [place] [address] Alpesh Yee M.D. [id number] EGFR 121 mL/min/1.73 m2 Normal >=60 [facility] Comment on above: Order Comment: [facility] has implemented the eGFR calculation approach that does not have a coefficient for race that conforms to the NKF-ASN Task Force Recommendations. Result Comment: Renetta mated GFR was calculated using the 2020 CKD-EPI creatinine equation. Performed By: #### 4 [id number] #### LAB [address] [id number] Alpesh Yee M.D. [id number] Glucose [Mass/Vol] 105 mg/dL High 65-99 [facility] Comment on above: Order Comment: [facility] has implemented the eGFR calculation approach that does not have a coefficient for race that conforms to the NKF-ASN Task Force Recommendations. Performed By: #### 4 [id number] #### LAB [address] [address] Alpesh Yee M.D. [id number] HCO3 (Bld) [Moles/Vol] 23 mmol/L Normal 21-32 [facility] Comment on above: Order Comment: [facility] has implemented the eGFR calculation approach that does not have a coefficient for race that conforms to the NKF-ASN Task Force Recommendations. Performed By: #### 4 [id number] #### LAB [address] [address] Alpesh Yee M.D. [id number] Potassium [Moles/Vol] 4.2 mmol/L Normal 3.5-5.1 [facility] Comment on above: Order Comment: [facility] has implemented the eGFR calculation approach that does not have a coefficient for race that conforms to the NKF-ASN Task Force Recommendations. Performed By: #### 4 [id number] #### LAB [address] [address] Alpesh Yee M.D. [id number] Sodium [Moles/Vol] 144 mmol/L Normal 135-145 [facility] Comment on above: Order Comment: [facility] has implemented the eGFR calculation approach that does not have a coefficient for race that conforms to the NKF-ASN Task Force Recommendations. Performed By: #### 4 [id number] #### LAB [address] [address] Alpesh Yee M.D. [id number] Urea nitrogen [Mass/Vol] 11 mg/dL Normal 8-25 [facility] Comment on above: Order Comment: [facility] has implemented the eGFR calculation approach that does not have a coefficient for race that conforms to the NKF-ASN Task Force Recommendations. Performed By: #### 4 6100 #### LAB [address] [address] Alpesh Yee M.D. [id number] Urea nitrogen/Creatinine [Mass ratio] 21.2 mg/mg High 10.0-20.0 [facility] Comment on above: Order Comment: [facility] has implemented the eGFR calculation approach that does not have a coefficient for race that conforms to the NKF-ASN Task Force Recommendations. Performed By: #### 4 [id number] #### LAB [address] [address] Alpesh Yee M.D. [id number] Anion gap [Moles/Vol] 16 mmol/L Normal 10-20 [facility] Comment on above: Order Comment: Injur y/Trauma or Illness?:Illness/Other How long have you had these symptoms (acute/chronic)?:Unknown Reason for exam?:status post repair of gastric perforation. Please perform study with Gastrografin through G-tube Type of Exam?:Initial Additional signs and symptoms?:. Fluoro time in minutes:2.29 two minutes and twenty nine seconds Fluoro dose in mGy?:102.6 Performed By: #### 4 [id number] #### LAB [address] [address] Alpesh Yee M.D. [id number] Calcium [Mass/Vol] 7.6 mg/dL Low 8.4-10.2 [facility] Comment on above: Order Comment: Injur y/Trauma or Illness?:Illness/Other How long have you had these symptoms (acute/chronic)?:Unknown Reason for exam?:status post repair of gastric perforation. Please perform study with Gastrografin through G-tube Type of Exam?:Initial Additional signs and symptoms?:. Fluoro time in minutes:2.29 two minutes and twenty nine seconds Fluoro dose in mGy?:102.6 Performed By: #### 4 [id number] #### LAB [address] [id number] Alpesh Yee M.D. [id number] Chloride [Moles/Vol] 111 mmol/L High 98-108 [facility] Comment on above: Order Comment: Injur y/Trauma or Illness?:Illness/Other How long have you had these symptoms (acute/chronic)?:Unknown Reason for exam?:status post repair of gastric perforation. Please perform study with Gastrografin through G-tube Type of Exam?:Initial Additional signs and symptoms?:. Fluoro time in minutes:2.29 two minutes and twenty nine seconds Fluoro dose in mGy?:102.6 Performed By: #### 4 [id number] #### LAB [address] [address] Alpesh Yee M.D. [id number] Creatinine [Mass/Vol] 0.52 mg/dL Normal 0.50-1.30 [facility] Comment on above: Order Comment: Injur y/Trauma or Illness?:Illness/Other How long have you had these symptoms (acute/chronic)?:Unknown Reason for exam?:status post repair of gastric perforation. Please perform study with Gastrografin through G-tube Type of Exam?:Initial Additional signs and symptoms?:. Fluoro time in minutes:2.29 two minutes and twenty nine seconds Fluoro dose in mGy?:102.6 Performed By: #### 4 [id number] #### LAB [address] [address] Alpesh Yee M.D. [id number] EGFR 121 mL/min/1.73 m2 Normal >=60 [facility] Comment on above: Order Comment: Injur y/Trauma or Illness?:Illness/Other How long have you had these symptoms (acute/chronic)?:Unknown Reason for exam?:status post repair of gastric perforation. Please perform study with Gastrografin through G-tube Type of Exam?:Initial Additional signs and symptoms?:. Fluoro time in minutes:2.29 two minutes and twenty nine seconds Fluoro dose in mGy?:102.6 Result Comment: Renetta mated GFR was calculated using the 2020 CKD-EPI creatinine equation. Performed By: #### 4 [id number] #### LAB [address] [id number] Alpesh Yee M.D. [id number] Glucose [Mass/Vol] 107 mg/dL High 65-99 [facility] Comment on above: Order Comment: Injur y/Trauma or Illness?:Illness/Other How long have you had these symptoms (acute/chronic)?:Unknown Reason for exam?:status post repair of gastric perforation. Please perform study with Gastrografin through G-tube Type of Exam?:Initial Additional signs and symptoms?:. Fluoro time in minutes:2.29 two minutes and twenty nine seconds Fluoro dose in mGy?:102.6 Performed By: #### 4 [id number] #### LAB [address] [address] Alpesh Yee M.D. [id number] HCO3 (Bld) [Moles/Vol] 21 mmol/L Normal 21-32 [facility] Comment on above: Order Comment: Injur y/Trauma or Illness?:Illness/Other How long have you had these symptoms (acute/chronic)?:Unknown Reason for exam?:status post repair of gastric perforation. Please perform study with Gastrografin through G-tube Type of Exam?:Initial Additional signs and symptoms?:. Fluoro time in minutes:2.29 two minutes and twenty nine seconds Fluoro dose in mGy?:102.6 Performed By: #### 4 [id number] #### LAB [address] [address] Alpesh Yee M.D. [id number] Potassium [Moles/Vol] 4.3 mmol/L Normal 3.5-5.1 [facility] Comment on above: Order Comment: Injur y/Trauma or Illness?:Illness/Other How long have you had these symptoms (acute/chronic)?:Unknown Reason for exam?:status post repair of gastric perforation. Please perform study with Gastrografin through G-tube Type of Exam?:Initial Additional signs and symptoms?:. Fluoro time in minutes:2.29 two minutes and twenty nine seconds Fluoro dose in mGy?:102.6 Performed By: #### 4 [id number] #### LAB [address] [address] Alpesh Yee M.D. [id number] Sodium [Moles/Vol] 144 mmol/L Normal 135-145 [facility] Comment on above: Order Comment: Injur y/Trauma or Illness?:Illness/Other How long have you had these symptoms (acute/chronic)?:Unknown Reason for exam?:status post repair of gastric perforation. Please perform study with Gastrografin through G-tube Type of Exam?:Initial Additional signs and symptoms?:. Fluoro time in minutes:2.29 two minutes and twenty nine seconds Fluoro dose in mGy?:102.6 Performed By: #### 4 [id number] #### LAB [address] [id number] Alpesh Yee M.D. [id number] Urea nitrogen [Mass/Vol] 11 mg/dL Normal 8-25 [facility] Comment on above: Order Comment: Injur y/Trauma or Illness?:Illness/Other How long have you had these symptoms (acute/chronic)?:Unknown Reason for exam?:status post repair of gastric perforation. Please perform study with Gastrografin through G-tube Type of Exam?:Initial Additional signs and symptoms?:. Fluoro time in minutes:2.29 two minutes and twenty nine seconds Fluoro dose in mGy?:102.6 Performed By: #### 4 [id number] #### LAB [address] [address] Alpesh Yee M.D. [id number] Urea nitrogen/Creatinine [Mass ratio] 21.2 mg/mg High 10.0-20.0 [facility] Comment on above: Order Comment: Injur y/Trauma or Illness?:Illness/Other How long have you had these symptoms (acute/chronic)?:Unknown Reason for exam?:status post repair of gastric perforation. Please perform study with Gastrografin through G-tube Type of Exam?:Initial Additional signs and symptoms?:. Fluoro time in minutes:2.29 two minutes and twenty nine seconds Fluoro dose in mGy?:102.6 Performed By: #### 4 [id number] #### LAB [address] [address] Alpesh Yee M.D. [id number] Bacteria identified Aer cx N om (Unsp spec)Ordered By: Francis Medina on 06-21-2024 [facility] Basic metabolic 2000 panelon 06-21-2024 Anion gap [Moles/Vol] 14 mmol/L 10 - 2 0 mmol/L [facility] Calcium [Mass/Vol] 7.8 mg/dL Low 8.4 - 10. 2 mg/dL [facility] Chloride [Moles/Vol] 111 mmol/L High 98 - 10 8 mmol/L [facility] Creatinine [Mass/Vol] 0.52 mg/dL 0.50 - 1.30 mg/dL [facility] GFR/1.73 sq M.predicted CKD-EPI (S/P/Bld) [Vol rate/Area] 121 - PINF [facility] Glucose [Mass/Vol] 105 mg/dL High 65 - 99 mg/dL [facility]al HCO3 [Moles/Vol] 23 mmol/L 21 - 32 mmol/L [facility] Interpretation and review of laboratory results Abnormal [facility] Potassium [Moles/Vol] 4.2 mmol/L 3.5 - 5.1 mmol/L [facility] Sodium [Moles/Vol] 144 mmol/L 135 - 145 mmol/L [facility] Urea nitrogen [Mass/Vol] 11 mg/dL 8 - 25 mg/d L [facility] Urea nitrogen/Creatinine [Mass ratio] 21.2 mg/mg High 10.0 - 20.0 [facility] Anion gap [Moles/Vol] 16 mmol/L 10 - 2 0 mmol/L [facility] Calcium [Mass/Vol] 7.6 mg/dL Low 8.4 - 10. 2 mg/dL [facility] Chloride [Moles/Vol] 111 mmol/L High 98 - 10 8 mmol/L [facility] Creatinine [Mass/Vol] 0.52 mg/dL 0.50 - 1.30 mg/dL [facility] GFR/1.73 sq M.predicted CKD-EPI (S/P/Bld) [Vol rate/Area] 121 - PINF [facility] Glucose [Mass/Vol] 107 mg/dL High 65 - 99 mg/dL [facility] HCO3 [Moles/Vol] 21 mmol/L 21 - 32 mmol/L [facility] Interpretation and review of laboratory results Abnormal [facility] Potassium [Moles/Vol] 4.3 mmol/L 3.5 - 5.1 mmol/L [facility] Sodium [Moles/Vol] 144 mmol/L 135 - 145 mmol/L [facility] Urea nitrogen [Mass/Vol] 11 mg/dL 8 - 25 mg/d L [facility] Urea nitrogen/Creatinine [Mass ratio] 21.2 mg/mg High 10.0 - 20.0 [facility] CBCon 06-21-2024 AUTO NRBC 0.0 % Normal [facility] Comment on above: Performed By: #### [id number] #### LAB [address] [address] Alpesh Yee M.D. [id number] AUTO NRBC ABS COUNT 0.00 K/mcL Normal 0.00-0.00 [facility] Comment on above: Performed By: #### 4 [id number] #### LAB [address] [address] Alpesh Yee M.D. [id number] Erythrocyte distribution width (RBC) [Ratio] 12.8 % Normal 11.6-14.8 [facility] Comment on above: Performed By: #### 4 [id number] #### LAB [address] [address] Alpesh Yee M.D. [id number] Hematocrit (Bld) [Volume fraction] 35.1 % Low 41.0-53.0 [facility] Comment on above: Performed By: #### 4 [id number] #### LAB [address] [address] Alpesh Yee M.D. [id number] Hemoglobin (Bld) [Mass/Vol] 11.4 g/dL Low 13.5-17.5 [facility] Comment on above: Performed By: #### 4 [id number] #### LAB [address] [address] Alpesh Yee M.D. [id number] MCH (RBC) [Entitic mass] 30.9 pg Normal 26.0-34.0 [facility] Comment on above: Performed By: #### 4 [id number] #### LAB [address] [address] Alpesh Yee M.D. [id number] MCV (RBC) [Entitic vol] 95.1 fL Normal 80.0-100.0 [facility] Comment on above: Performed By: #### 4 [id number] #### LAB [address] [address] Alpesh Yee M.D. [id number] MEAN CORPUSCULAR HEMOGLOBIN CONC 32.5 g/dL Normal 31.0-37.0 [facility] Comment on above: Performed By: #### 4 [id number] #### LAB [address] [address] Alpesh Yee M.D. [id number] Platelet mean volume (Bld) [Entitic vol] 11.3 fL Normal 9.4-12.4 [facility] Comment on above: Performed By: #### 4 [id number] #### LAB [address] [address] Alpesh Yee M.D. [id number] Platelets (Bld) [#/Vol] 167 10*3/uL Normal 150-400 [facility] Comment on above: Performed By: #### 4 [id number] #### LAB [address] [address] Alpesh Yee M.D. [id number] RBC (Bld) [#/Vol] 3.69 10*6/uL Low 4.50-5.90 [facility] Comment on above: Performed By: #### 4 [id number] #### LAB [address] [address] Alpesh Yee M.D. [id number] WBC (Bld) [#/Vol] 9.99 10*3/uL Normal 4.50-11.00 [facility] Comment on above: Performed By: #### 4 [id number] #### LAB [address] [address] Alpesh Yee M.D. [id number] AUTO NRBC 0.0 % Normal [facility] Comment on above: Performed By: #### 4 [id number] #### LAB [address] [address] Alpesh Yee M.D. [id number] AUTO NRBC ABS COUNT 0.00 K/mcL Normal 0.00-0.00 [facility] Comment on above: Performed By: #### 4 [id number] #### LAB [address] [address] Alpesh Yee M.D. [id number] Erythrocyte distribution width (RBC) [Ratio] 12.7 % Normal 11.6-14.8 [facility] Comment on above: Performed By: #### 4 [id number] #### LAB [address] [address] Alpesh Yee M.D. [id number] Hematocrit (Bld) [Volume fraction] 36.2 % Low 41.0-53.0 [facility] Comment on above: Performed By: #### 4 [id number] #### LAB [address] [address] Alpesh Yee M.D. [id number] Hemoglobin (Bld) [Mass/Vol] 11.6 g/dL Low 13.5-17.5 [facility] Comment on above: Performed By: #### 4 [id number] #### LAB [address] [address] Alpesh Yee M.D. [id number] MCH (RBC) [Entitic mass] 30.3 pg Normal 26.0-34.0 [facility] Comment on above: Performed By: #### 4 [id number] #### LAB [address] [address] Alpesh Yee M.D. [id number] MCV (RBC) [Entitic vol] 94.5 fL Normal 80.0-100.0 [facility] Comment on above: Performed By: #### 4 [id number] #### LAB [address] [address] Alpesh Yee M.D. [id number] MEAN CORPUSCULAR HEMOGLOBIN CONC 32.0 g/dL Normal 31.0-37.0 [facility] Comment on above: Performed By: #### 4 [id number] #### LAB [address] [address] Alpesh Yee M.D. [id number] Platelet mean volume (Bld) [Entitic vol] 11.2 fL Normal 9.4-12.4 [facility] Comment on above: Performed By: #### 4 [id number] #### LAB [address] [address] Alpesh Yee M.D. [id number] Platelets (Bld) [#/Vol] 166 10*3/uL Normal 150-400 [facility] Comment on above: Performed By: #### 4 [id number] #### LAB [address] [address] Alpesh Yee M.D. [id number] RBC (Bld) [#/Vol] 3.83 10*6/uL Low 4.50-5.90 [facility] Comment on above: Performed By: #### 4 [id number] #### LAB [address] [address] Alpesh Yee M.D. [id number] WBC (Bld) [#/Vol] 10.83 10*3/uL Normal 4.50-11.00 [facility] Comment on above: Performed By: #### 4 [id number] #### LAB [address] [address] Alpesh Yee M.D. [id number] AUTO NRBC 0.0 % Normal [facility] Comment on above: Performed By: #### 4 [id number] #### LAB [address] [address] Alpesh Yee M.D. [id number] AUTO NRBC ABS COUNT 0.00 K/mcL Normal 0.00-0.00 [facility] Comment on above: Performed By: #### 4 [id number] #### LAB [address] [address] Alpesh Yee M.D. [id number] Erythrocyte distribution width (RBC) [Ratio] 12.5 % Normal 11.6-14.8 [facility] Comment on above: Performed By: #### 4 [id number] #### LAB [address] [address] Alpesh Yee M.D. [id number] Hematocrit (Bld) [Volume fraction] 35.8 % Low 41.0-53.0 [facility] Comment on above: Performed By: #### 4 [id number] #### LAB [address] [address] Alpesh Yee M.D. [id number] Hemoglobin (Bld) [Mass/Vol] 11.8 g/dL Low 13.5-17.5 [facility] Comment on above: Performed By: #### 4 [id number] #### LAB [address] [address] Alpesh Yee M.D. [id number] MCH (RBC) [Entitic mass] 31.2 pg Normal 26.0-34.0 [facility] Comment on above: Performed By: #### 4 [id number] #### LAB [address] [address] Alpesh Yee M.D. [id number] MCV (RBC) [Entitic vol] 94.7 fL Normal 80.0-100.0 [facility] Comment on above: Performed By: #### 4 [id number] #### LAB [address] [address] Alpesh Yee M.D. [id number] MEAN CORPUSCULAR HEMOGLOBIN CONC 33.0 g/dL Normal 31.0-37.0 [facility] Comment on above: Performed By: #### 4 [id number] #### LAB [address] [address] Alpesh Yee M.D. [id number] Platelet mean volume (Bld) [Entitic vol] 11.1 fL Normal 9.4-12.4 [facility] Comment on above: Performed By: #### 4 [id number] #### LAB [address] [address] Alpesh Yee M.D. [id number] Platelets (Bld) [#/Vol] 174 10*3/uL Normal 150-400 [facility] Comment on above: Performed By: #### 4 [id number] #### LAB [address] [address] Alpesh Yee M.D. [id number] RBC (Bld) [#/Vol] 3.78 10*6/uL Low 4.50-5.90 [facility] Comment on above: Performed By: #### 4 [id number] ####[facility] LAB [address] [place], [place] [address] Alpesh Yee M.D. [id number] WBC (Bld) [#/Vol] 10.49 10*3/uL Normal 4.50-11.00 [facility] Comment on above: Performed By: #### 4 [id number] #### LAB [address] [place], [place] [address] Alpesh Yee M.D. [id number] CBC panel Auto (Bld)on 06-21 Erythrocyte distribution width (RBC) [Entitic vol] 12.8 % 11.6 - 14.8 % [facility] Hematocrit (Bld) [Volume fraction] 35.1 % Low 41.0 - 53.0 % [facility] Hemoglobin (Bld) [Mass/Vol] 11.4 g/dL Low 13.5 - 17.5 g/dL [facility] Interpretation and review of laboratory results Abnormal [facility] MCH (RBC) [Entitic mass] 30.9 pg 26. 0 - 34.0 pg [facility] MCHC (RBC) [Mass/Vol] 32.5 g/dL 31.0 - 37.0 g/dL [facility] MCV (RBC) [Entitic vol] 95.1 fL 80.0 - 100.0 fL [facility] Nucleated RBC (Bld) [#/Vol] 0 10*3/uL [facility] Nucleated RBC/100 WBC (Bld) [Ratio] 0 % [facility] Platelet mean volume (Bld) [Entitic vol] 11.3 fL 9.4 - 12.4 fL [facility] Platelets (Bld) [#/Vol] 167 10*3/uL [facility] RBC (Bld) [#/Vol] 3.69 10*6/uL Low [facility] WBC (Bld) [#/Vol] 9.99 10*3/uL [facility] Erythrocyte distribution width (RBC) [Entitic vol] 12.7 % 11.6 - 14.8 % [facility] Hematocrit (Bld) [Volume fraction] 36.2 % Low 41.0 - 53.0 % [facility] Hemoglobin (Bld) [Mass/Vol] 11.6 g/dL Low 13.5 - 17.5 g/dL [facility] Interpretation and review of laboratory results Abnormal [facility] MCH (RBC) [Entitic mass] 30.3 pg 26. 0 - 34.0 pg [facility] MCHC (RBC) [Mass/Vol] 32 g/dL 31.0 - 37.0 g/dL [facility] MCV (RBC) [Entitic vol] 94.5 fL 80.0 - 100.0 fL [facility] Nucleated RBC (Bld) [#/Vol] 0 10*3/uL [facility] Nucleated RBC/100 WBC (Bld) [Ratio] 0 % [facility] Platelet mean volume (Bld) [Entitic vol] 11.2 fL 9.4 - 12.4 fL [facility] Platelets (Bld) [#/Vol] 166 10*3/uL [facility] RBC (Bld) [#/Vol] 3.83 10*6/uL Low [facility] WBC (Bld) [#/Vol] 10.83 10*3/uL [facility] Erythrocyte distribution width (RBC) [Entitic vol] 12.5 % 11.6 - 14.8 % [facility] Hematocrit (Bld) [Volume fraction] 35.8 % Low 41.0 - 53.0 % [facility] Hemoglobin (Bld) [Mass/Vol] 11.8 g/dL Low 13.5 - 17.5 g/dL [facility] Interpretation and review of laboratory results Abnormal [facility] MCH (RBC) [Entitic mass] 31.2 pg 26. 0 - 34.0 pg [facility] MCHC (RBC) [Mass/Vol] 33 g/dL 31.0 - 37.0 g/dL [facility] MCV (RBC) [Entitic vol] 94.7 fL 80.0 - 100.0 fL [facility] Nucleated RBC (Bld) [#/Vol] 0 10*3/uL [facility] Nucleated RBC/100 WBC (Bld) [Ratio] 0 % [facility] Platelet mean volume (Bld) [Entitic vol] 11.1 fL 9.4 - 12.4 fL [facility] Platelets (Bld) [#/Vol] 174 10*3/uL [facility] RBC (Bld) [#/Vol] 3.78 10*6/uL Low [facility] WBC (Bld) [#/Vol] 10.49 10*3/uL [facility] Erythrocyte distribution width (RBC) [Entitic vol] 12.6 % 11.6 - 14.8 % [facility] Hematocrit (Bld) [Volume fraction] 36.6 % Low 41.0 - 53.0 % [facility] Hemoglobin (Bld) [Mass/Vol] 12.2 g/dL Low 13.5 - 17.5 g/dL [facility] Interpretation and review of laboratory results Abnormal [facility] MCH (RBC) [Entitic mass] 31.1 pg 26. 0 - 34.0 pg [facility] MCHC (RBC) [Mass/Vol] 33.3 g/dL 31.0 - 37.0 g/dL [facility] MCV (RBC) [Entitic vol] 93.4 fL 80.0 - 100.0 fL [facility] Nucleated RBC (Bld) [#/Vol] 0 10*3/uL [facility] Nucleated RBC/100 WBC (Bld) [Ratio] 0 % [facility] Platelet mean volume (Bld) [Entitic vol] 11.3 fL 9.4 - 12.4 fL [facility] Platelets (Bld) [#/Vol] 165 10*3/uL [facility] RBC (Bld) [#/Vol] 3.92 10*6/uL Low [facility] WBC (Bld) [#/Vol] 11.02 10*3/uL High [facility] Glucose (Bld) [Mass/Vol]on 08-21-2023 Glucose [Mass/Vol] 105 mg/dL High 65 - 99 mg/dL [facility] Interpretation and review of laboratory results Abnormal [facility] Glucose [Mass/Vol] 83 mg/dL 65 - 99 mg/dL [facility] Interpretation and review of laboratory results Normal [facility] Glucose [Mass/Vol] 82 mg/dL 65 - 99 mg/dL [facility] Interpretation and review of laboratory results Normal [facility] Glucose [Mass/Vol] 87 mg/dL 65 - 99 mg/dL [facility] Interpretation and review of laboratory results Normal [facility] Glucose [Mass/Vol] 88 mg/dL 65 - 99 mg/dL [facility] Interpretation and review of laboratory results Normal [facility] PHOSPHORUSon 06-21-2024 Phosphate [Mass/Vol] 3.0 mg/dL Normal 2.7-4.5 [facility] Comment on above: Performed By: #### [id number] #### [facility] LAB [address] [address] Alpesh Yee M.D. [id number] POC GLUCOSE [facility] 024 Glucose [Mass/Vol] 105 mg/dL High [address] [place] [address] Comment on above: Performed By: #### 4 [id number] #### [facility] [address] [address] Alpesh Yee M.D. [id number] Glucose [Mass/Vol] 83 mg/dL Normal [address] [place] [address] Comment on above: Performed By: #### 4 4014 #### LAB [address] [address] Alpesh Yee M.D. [id number] Glucose [Mass/Vol] 82 mg/dL Normal [address] [place] [address] Comment on above: Performed By: #### 4 [id number] #### LAB [address] [address] Alpesh Yee M.D. [id number] Glucose [Mass/Vol] 87 mg/dL Normal [address] [place] [address] Comment on above: Performed By: #### 4 [id number] #### LAB [address] [address] Alpesh Yee M.D. [id number] Glucose [Mass/Vol] 88 mg/dL Normal [address] [place] [address] Comment on above: Performed By: #### 4 4014 #### [facility] [address] [address] Alpesh Yee M.D. [id number] POTASSIUM LEVELon 06-21-2024 Potassium [Moles/Vol] 4.2 mmol/L Normal 3.5-5.1 [facility] Comment on above: Performed By: #### 4 6351 ####[facility] [address] [address] Alpesh Yee M.D. [id number] Phosphate [Mass/Vol]on 06-21 Interpretation and review of laboratory results Normal [facility] Phosphoruson 06-21-2024 Phosphate [Mass/Vol] 3 mg/dL 2.7 - 4 .5 mg/dL [facility] Potassium Levelon 06-21-2024 Potassium [Moles/Vol] 4.2 mmol/L 3.5 - 5.1 mmol/L [facility] Potassium [Moles/Vol]on 05-26 Interpretation and review of laboratory results Normal [facility] TRIGLYCERIDESon 06-21-2024 Triglyceride [Mass/Vol] 65 mg/dL Normal 30-150 [facility] Comment on above: Result Comment: Julia onal Cholesterol Education Program Guidelines: Triglyceride Normal: <150 mg/dL Borderline High: 150-199 mg/dL High: 200-499 mg/dL Very High: greater than or equal to 500 mg/dL Performed By: #### 4 0674 ####[facility] [address] [place], [place] [address] Alpesh Yee M.D. [id number] Triglyceride [Mass/Vol]on Interpretation and review of laboratory results Normal [facility] Triglycerideson 06-21-2024 Triglyceride [Mass/Vol] 65 mg/dL 30 - 150 mg/dL [facility] Urine Aerobic CultureOrdered By: Francis Medina on 06-21-2024 Bacteria identified Aer cx Nom (Unsp spec) No Growth (<1,000 CFU/mL) [facility] ABOR VERIFICATIONon 024 ABO and Rh group Nom (Bld) Blood group B Rh(D) negative Normal [facility] ABO and Rh group Nom (Bld) ABO/Rh Verification Normal [facility] Comment on above: Result Comment: Reina ent's ABO/Rh is verified. ABOR Verificationon 024 ABO and Rh group Nom (Bld) Blood group B Rh(D) negative [facility] ABO and Rh group Nom (Bld) ABO/Rh Verification [facility] APTTon 06-20-2024 aPTT Coag (Bld) [Time] 34 s [facility] [place] aPTT Coag (Bld) [Time] 34 s Normal 23-34 [facility] Comment on above: Order Comment: Thera peutic range for APTT's is 68 - 104 seconds Performed By: #### 4 7353 #### LAB [address] [place], [place] [address] Alpesh Yee M.D. [id number] BASIC METABOLIC PANELon 11-2 Anion gap [Moles/Vol] 16 mmol/L Normal 10-20 [facility] Comment on above: Order Comment: Injur y/Trauma or Illness?:Illness/Other How long have you had these symptoms (acute/chronic)?:Unknown Reason for exam?:status post repair of gastric perforation. Please perform study with Gastrografin through G-tube Type of Exam?:Initial Additional signs and symptoms?:. Fluoro time in minutes:2.29 two minutes and twenty nine seconds Fluoro dose in mGy?:102.6 Performed By: #### 4 6124 #### LAB [address] [address] Alpesh Yee M.D. [id number] Calcium [Mass/Vol] 8.4 mg/dL Normal 8.4-10.2 [facility] Comment on above: Order Comment: Injur y/Trauma or Illness?:Illness/Other How long have you had these symptoms (acute/chronic)?:Unknown Reason for exam?:status post repair of gastric perforation. Please perform study with Gastrografin through G-tube Type of Exam?:Initial Additional signs and symptoms?:. Fluoro time in minutes:2.29 two minutes and twenty nine seconds Fluoro dose in mGy?:102.6 Performed By: #### 4 6124 #### LAB [address] [address] Alpesh Yee M.D. [id number] Chloride [Moles/Vol] 105 mmol/L Normal 98-108 [facility] Comment on above: Order Comment: Injur y/Trauma or Illness?:Illness/Other How long have you had these symptoms (acute/chronic)?:Unknown Reason for exam?:status post repair of gastric perforation. Please perform study with Gastrografin through G-tube Type of Exam?:Initial Additional signs and symptoms?:. Fluoro time in minutes:2.29 two minutes and twenty nine seconds Fluoro dose in mGy?:102.6 Performed By: #### 4 6124 #### LAB [address] [place], [place] [address] Alpesh Yee M.D. [id number] Creatinine [Mass/Vol] 0.52 mg/dL Normal 0.50-1.30 [facility] Comment on above: Order Comment: Injur y/Trauma or Illness?:Illness/Other How long have you had these symptoms (acute/chronic)?:Unknown Reason for exam?:status post repair of gastric perforation. Please perform study with Gastrografin through G-tube Type of Exam?:Initial Additional signs and symptoms?:. Fluoro time in minutes:2.29 two minutes and twenty nine seconds Fluoro dose in mGy?:102.6 Performed By: #### 4 6124 #### LAB [address] [address] Alpesh Yee M.D. [id number] EGFR 121 mL/min/1.73 m2 Normal >=60 [facility] Comment on above: Order Comment: Injur y/Trauma or Illness?:Illness/Other How long have you had these symptoms (acute/chronic)?:Unknown Reason for exam?:status post repair of gastric perforation. Please perform study with Gastrografin through G-tube Type of Exam?:Initial Additional signs and symptoms?:. Fluoro time in minutes:2.29 two minutes and twenty nine seconds Fluoro dose in mGy?:102.6 Result Comment: Renetta mated GFR was calculated using the 2020 CKD-EPI creatinine equation. Performed By: #### 4 6124 #### LAB [address] [address] Alpesh Yee M.D. [id number] Glucose [Mass/Vol] 90 mg/dL Normal 65-99 [facility] Comment on above: Order Comment: Injur y/Trauma or Illness?:Illness/Other How long have you had these symptoms (acute/chronic)?:Unknown Reason for exam?:status post repair of gastric perforation. Please perform study with Gastrografin through G-tube Type of Exam?:Initial Additional signs and symptoms?:. Fluoro time in minutes:2.29 two minutes and twenty nine seconds Fluoro dose in mGy?:102.6 Performed By: #### 4 6112 #### LAB [address] [address] Alpesh Yee M.D. [id number] HCO3 (Bld) [Moles/Vol] 23 mmol/L Normal 21-32 [facility] Comment on above: Order Comment: Injur y/Trauma or Illness?:Illness/Other How long have you had these symptoms (acute/chronic)?:Unknown Reason for exam?:status post repair of gastric perforation. Please perform study with Gastrografin through G-tube Type of Exam?:Initial Additional signs and symptoms?:. Fluoro time in minutes:2.29 two minutes and twenty nine seconds Fluoro dose in mGy?:102.6 Performed By: #### 4 6124 #### LAB [address] [address] Alpesh Yee M.D. [id number] Potassium [Moles/Vol] 3.9 mmol/L Normal 3.5-5.1 [facility] Comment on above: Order Comment: Injur y/Trauma or Illness?:Illness/Other How long have you had these symptoms (acute/chronic)?:Unknown Reason for exam?:status post repair of gastric perforation. Please perform study with Gastrografin through G-tube Type of Exam?:Initial Additional signs and symptoms?:. Fluoro time in minutes:2.29 two minutes and twenty nine seconds Fluoro dose in mGy?:102.6 Performed By: #### 4 6124 #### LAB [address] [address] Alpesh Yee M.D. [id number] Sodium [Moles/Vol] 140 mmol/L Normal 135-145 [facility] Comment on above: Order Comment: Injur y/Trauma or Illness?:Illness/Other How long have you had these symptoms (acute/chronic)?:Unknown Reason for exam?:status post repair of gastric perforation. Please perform study with Gastrografin through G-tube Type of Exam?:Initial Additional signs and symptoms?:. Fluoro time in minutes:2.29 two minutes and twenty nine seconds Fluoro dose in mGy?:102.6 Performed By: #### 4 6124 #### LAB [address] [address] Alpesh Yee M.D. [id number] Urea nitrogen [Mass/Vol] 15 mg/dL Normal 8- [facility] Comment on above: Order Comment: Injur y/Trauma or Illness?:Illness/Other How long have you had these symptoms (acute/chronic)?:Unknown Reason for exam?:status post repair of gastric perforation. Please perform study with Gastrografin through G-tube Type of Exam?:Initial Additional signs and symptoms?:. Fluoro time in minutes:2.29 two minutes and twenty nine seconds Fluoro dose in mGy?:102.6 Performed By: #### 4 6124 #### LAB [address] [place], [place] [address] Alpesh Yee M.D. [id number] Urea nitrogen/Creatinine [Mass ratio] 28.8 mg/mg High 10.0-20.0 [facility] Comment on above: Order Comment: Injur y/Trauma or Illness?:Illness/Other How long have you had these symptoms (acute/chronic)?:Unknown Reason for exam?:status post repair of gastric perforation. Please perform study with Gastrografin through G-tube Type of Exam?:Initial Additional signs and symptoms?:. Fluoro time in minutes:2.29 two minutes and twenty nine seconds Fluoro dose in mGy?:102.6 Performed By: #### 4 6124 #### LAB [address] [address] Alpesh Yee M.D. [id number] BLOOD CULTURE AEROBIC/ANAERO BICon 06-20-2024 BLOOD CULTURE AEROBIC/ANAEROBIC BLOOD CULTURE No Growth after 5 days Normal [facility] Comment on above: Order Comment: Draw before administering any antibiotics. Performed By: #### 4 4014 #### LAB [address] [place], [place] [address] Alpesh Yee M.D. [id number] Order Comment: New P EG tube placed 06/18, pt has since removed the tube. Eval for perforation. Injury/Trauma or Illness?:Illness/Other How long have you had these symptoms (acute/chronic)?:Acute Reason for exam?:post peg tube placement on 06/18. patient pulled peg. Eval for possible perforation. diffuse abdominal pain Type of Exam?:Initial Additional signs and symptoms?:. Performed By: #### 4 4014 #### LAB [address] [place], [place] [address] Alpesh Yee M.D. [id number] Basic metabolic 2000 panelon 06-20-2024 Anion gap [Moles/Vol] 16 mmol/L 10 - 2 0 mmol/L [facility] Calcium [Mass/Vol] 8.4 mg/dL 8.4 - 10. 2 mg/dL [facility] Chloride [Moles/Vol] 105 mmol/L 98 - 10 8 mmol/L [facility] Creatinine [Mass/Vol] 0.52 mg/dL 0.50 - 1.30 mg/dL [facility] GFR/1.73 sq M.predicted CKD-EPI (S/P/Bld) [Vol rate/Area] 121 - PINF [facility] Glucose [Mass/Vol] 90 mg/dL 65 - 99 mg/dL [facility] HCO3 [Moles/Vol] 23 mmol/L 21 - 32 mmol/L [facility] Potassium [Moles/Vol] 3.9 mmol/L 3.5 - 5.1 mmol/L [facility] Sodium [Moles/Vol] 140 mmol/L 135 - 145 mmol/L [facility] Urea nitrogen [Mass/Vol] 15 mg/dL 8 - 25 mg/d L [facility] Urea nitrogen/Creatinine [Mass ratio] 28.8 mg/mg High 10.0 - 20.0 [facility] Blood type and Indirect anti body screen panel (Bld)on 06-20-2024 ABO and Rh group Nom (Bld) Blood group B Rh(D) negative [facility] Blood group antibody screen Ql Negative [facility] Specimen Expires 06/23/2024 23:59 EST [facility] CBCon 06-20-2024 AUTO NRBC 0.0 % Normal [facility] Comment on above: Performed By: #### 4 7222 #### [facility] LAB [address] [place], [place] [address] Alpesh Yee M.D. [id number] AUTO NRBC ABS COUNT 0.00 K/mcL Normal 0.00-0.00 [facility] Comment on above: Performed By: #### 4 7222 #### LAB [address] [place], [place] [address] Alpesh Yee M.D. [id number] Erythrocyte distribution width (RBC) [Ratio] 12.6 % Normal 11.6-14.8 [facility] Comment on above: Performed By: #### 4 7222 #### LAB [address] [address] Alpesh Yee M.D. [id number] Hematocrit (Bld) [Volume fraction] 36.6 % Low 41.0-53.0 [facility] Comment on above: Performed By: #### 4 7222 #### LAB [address] [address] Alpesh Yee M.D. [id number] Hemoglobin (Bld) [Mass/Vol] 12.2 g/dL Low 13.5-17.5 [facility] Comment on above: Performed By: #### 4 7222 #### LAB [address] [address] Alpesh Yee M.D. [id number] MCH (RBC) [Entitic mass] 31.1 pg Normal 26.0-34.0 [facility] Comment on above: Performed By: #### 4 7222 #### LAB [address] [address] Alpesh Yee M.D. [id number] MCV (RBC) [Entitic vol] 93.4 fL Normal 80.0-100.0 [facility] Comment on above: Performed By: #### 4 7222 #### LAB [address] [address] Alpesh Yee M.D. [id number] MEAN CORPUSCULAR HEMOGLOBIN CONC 33.3 g/dL Normal 31.0-37.0 [facility] Comment on above: Performed By: #### 4 7222 #### LAB [address] [address] Alpesh Yee M.D. [id number] Platelet mean volume (Bld) [Entitic vol] 11.3 fL Normal 9.4-12.4 [facility] Comment on above: Performed By: #### 4 7247 #### LAB [address] [address] Alpesh Yee M.D. [id number] Platelets (Bld) [#/Vol] 165 10*3/uL Normal 150-400 [facility] Comment on above: Performed By: #### 4 7222 #### LAB [address] [address] Alpesh Yee M.D. [id number] RBC (Bld) [#/Vol] 3.92 10*6/uL Low 4.50-5.90 [facility] Comment on above: Performed By: #### 4 7222 #### LAB [address] [address] Alpesh Yee M.D. [id number] WBC (Bld) [#/Vol] 11.02 10*3/uL High 4.50-11.00 [facility] Comment on above: Performed By: #### 4 7222 #### LAB [address] [address] Alpesh Yee M.D. [id number] AUTO NRBC 0.0 % Normal [facility] Comment on above: Performed By: #### 4 [id number] #### LAB [address] [address] Alpesh Yee M.D. [id number] AUTO NRBC ABS COUNT 0.00 K/mcL Normal 0.00-0.00 [facility] Comment on above: Performed By: #### 4 [id number] #### LAB [address] [address] Alpesh Yee M.D. [id number] Erythrocyte distribution width (RBC) [Ratio] 12.4 % Normal 11.6-14.8 [facility] Comment on above: Performed By: #### 4 [id number] #### LAB [address] [address] Alpesh Yee M.D. [id number] Hematocrit (Bld) [Volume fraction] 38.5 % Low 41.0-53.0 [facility] Comment on above: Performed By: #### 4 [id number] #### LAB [address] [address] Alpesh Yee M.D. [id number] Hemoglobin (Bld) [Mass/Vol] 12.6 g/dL Low 13.5-17.5 [facility] Comment on above: Performed By: #### 4 [id number] #### LAB [address] [address] Alpesh Yee M.D. [id number] MCH (RBC) [Entitic mass] 30.5 pg Normal 26.0-34.0 [facility] Comment on above: Performed By: #### 4 [id number] #### LAB [address] [address] Alpesh Yee M.D. [id number] MCV (RBC) [Entitic vol] 93.2 fL Normal 80.0-100.0 [facility] Comment on above: Performed By: #### 4 [id number] #### LAB [address] [address] Alpesh Yee M.D. [id number] MEAN CORPUSCULAR HEMOGLOBIN CONC 32.7 g/dL Normal 31.0-37.0 [facility] Comment on above: Performed By: #### 4 [id number] #### LAB [address] [address] Alpesh Yee M.D. [id number] Platelet mean volume (Bld) [Entitic vol] 11.4 fL Normal 9.4-12.4 [facility] Comment on above: Performed By: #### 4 [id number] #### LAB [address] [address] Alpesh Yee M.D. [id number] Platelets (Bld) [#/Vol] 163 10*3/uL Normal 150-400 [facility] Comment on above: Performed By: #### 4 [id number] #### LAB [address] [address] Alpesh Yee M.D. [id number] RBC (Bld) [#/Vol] 4.13 10*6/uL Low 4.50-5.90 [facility] Comment on above: Performed By: #### 4 [id number] #### LAB [address] [place], [place] [address] Alpesh Yee M.D. [id number] WBC (Bld) [#/Vol] 10.69 10*3/uL Normal 4.50-11.00 [facility] Comment on above: Performed By: #### 4 [id number] #### LAB [address] [place], [place] [address] Alpesh Yee M.D. [id number] CBC Auto Differentialon 05-26 Basophils (Bld) [#/Vol] 0.02 10*3/uL [facility] Basophils/100 WBC (Bld) 0.2 % [facility] Eosinophils (Bld) [#/Vol] 0 10*3/uL [facility] Eosinophils/100 WBC (Bld) 0 % [facility] Erythrocyte distribution width (RBC) [Entitic vol] 12.2 % 11.6 - 14.8 % [facility] Hematocrit (Bld) [Volume fraction] 38.3 % Low 41.0 - 53.0 % [facility] Hemoglobin (Bld) [Mass/Vol] 13 g/dL Low 13.5 - 17.5 g/dL [facility] Immature granulocytes (Bld) [#/Vol] 0.05 10*3/uL [facility] Immature granulocytes/100 WBC (Bld) 0.4 % [facility] Interpretation and review of laboratory results Abnormal [facility] Lymphocytes (Bld) [#/Vol] 1.45 10*3/uL [facility] Lymphocytes/100 WBC (Bld) 13 % [facility] MCH (RBC) [Entitic mass] 31.3 pg 26. 0 - 34.0 pg [facility] MCHC (RBC) [Mass/Vol] 33.9 g/dL 31.0 - 37.0 g/dL [facility] MCV (RBC) [Entitic vol] 92.3 fL 80.0 - 100.0 fL [facility] Monocytes (Bld) [#/Vol] 0.73 10*3/uL [facility] Monocytes/100 WBC (Bld) 6.5 % [facility] Neutrophils (Bld) [#/Vol] 8.92 10*3/uL [facility] Neutrophils/100 WBC (Bld) 79.9 % [facility] Nucleated RBC (Bld) [#/Vol] 0 10*3/uL [facility] Nucleated RBC/100 WBC (Bld) [Ratio] 0 % [facility] Platelet mean volume (Bld) [Entitic vol] 11.7 fL 9.4 - 12.4 fL [facility] Platelets (Bld) [#/Vol] 170 10*3/uL [facility] RBC (Bld) [#/Vol] 4.15 10*6/uL Low [facility] ealt WBC (Bld) [#/Vol] 11.17 10*3/uL [facility] CBC WITH AUTO DIFFERENTIALon 06-20-2024 AUTO NRBC 0.0 % Normal [facility] Comment on above: Performed By: #### L [id number] #### LAB [address] [place] [address] Alpesh Yee M.D. [id number] AUTO NRBC ABS COUNT 0.00 K/mcL Normal 0.00-0.00 [facility] Comment on above: Performed By: #### L [id number] #### LAB [address] [place] [address] Alpesh Yee M.D. [id number] BASOPHILS ABSOLUTE COUNT 0.02 K/mcL Normal 0.00-0.30 [facility] Comment on above: Performed By: #### L [id number] #### LAB [address] [place] [address] Alpesh Yee M.D. [id number] Basophils/100 WBC (Bld) 0.2 % Normal [facility] Comment on above: Performed By: #### L [id number] #### LAB [address] [address] Alpesh Yee M.D. [id number] Eosinophils (Bld) [#/Vol] 0.00 10*3/uL Normal 0.00-0.5 0 [facility] Comment on above: Performed By: #### L [id number] #### LAB [address] [place] [address] Alpesh eYe M.D. [id number] Eosinophils/100 WBC (Bld) 0.0 % Normal [facility] Comment on above: Performed By: #### L [id number] #### LAB [address] [address] Alpesh Yee M.D. [id number] Erythrocyte distribution width (RBC) [Ratio] 12.2 % Normal 11.6-14.8 [facility] Comment on above: Performed By: #### L [id number] #### LAB [address] [address] Alpesh Yee M.D. [id number] Hematocrit (Bld) [Volume fraction] 38.3 % Low 41.0-53.0 [facility] Comment on above: Performed By: #### L [id number] #### LAB [address] [address] Alpesh Yee M.D. [id number] Hemoglobin (Bld) [Mass/Vol] 13.0 g/dL Low 13.5-17.5 [facility] Comment on above: Performed By: #### L [id number] #### LAB [address] [place] [address] Alpesh Yee M.D. [id number] IG ABSOLUTE 0.05 K/mcL Normal 0.00-0.30 [facility] Comment on above: Performed By: #### L [id number] #### LAB [address] [address] Alpesh Yee M.D. [id number] IG PERCENT 0.40 % Normal [facility] Comment on above: Result Comment: The IG parameter is the percentage of metamyelocytes, myelocytes and promyelocytes. An immature granulocyte count (IG) of 1% or more suggests the possibility of infection, an IG count of 3% is very likely related to an infection. Performed By: #### L [id number] #### LAB [address] [place] [address] Alpesh Yee M.D. [id number] Lymphocytes (Bld) [#/Vol] 1.45 10*3/uL Normal 0.90-4.0 0 [facility] Comment on above: Performed By: #### L [id number] #### LAB [address] [address] Alpesh Yee M.D. [id number] Lymphocytes/100 WBC (Bld) 13.0 % Normal [facility] Comment on above: Performed By: #### L [id number] #### LAB [address] [address] Alpesh Yee M.D. [id number] MCH (RBC) [Entitic mass] 31.3 pg Normal 26.0-34.0 [facility] Comment on above: Performed By: #### L [id number] #### LAB [address] [address] Alpesh Yee M.D. [id number] MCV (RBC) [Entitic vol] 92.3 fL Normal 80.0-100.0 [facility] Comment on above: Performed By: #### L [id number] #### LAB [address] [place] [address] Alpesh Yee M.D. [id number] MEAN CORPUSCULAR HEMOGLOBIN CONC 33.9 g/dL Normal 31.0-37.0 [facility] Comment on above: Performed By: #### L [id number] #### LAB [address] [place] [address] Alpesh Yee M.D. [id number] Monocytes (Bld) [#/Vol] 0.73 10*3/uL Normal 0.30-0.90 [facility] Comment on above: Performed By: #### L [id number] #### LAB [address] [place] [address] lApesh Yee M.D. [id number] Monocytes/100 WBC (Bld) 6.5 % Normal [facility] Comment on above: Performed By: #### L [id number] #### LAB [address] [place] [address] Alpesh Yee M.D. [id number] NEUTROPHILS ABSOLUTE COUNT 8.92 K/mcL High 1.70-7.00 [facility] Comment on above: Performed By: #### L [id number] #### LAB [address] [address] Alpesh Yee M.D. [id number] Neutrophils/100 WBC (Bld) 79.9 % Normal [facility] Comment on above: Performed By: #### L [id number] #### LAB [address] [address] Alpesh Yee M.D. [id number] Platelet mean volume (Bld) [Entitic vol] 11.7 fL Normal 9.4-12.4 [facility] Comment on above: Performed By: #### L [id number] #### [facility] [address] [address] Alpesh Yee M.D. [id number] Platelets (Bld) [#/Vol] 170 10*3/uL Normal 150-400 [facility] Comment on above: Performed By: #### L [id number] #### [facility] [address] [address] Alpesh Yee M.D. [id number] RBC (Bld) [#/Vol] 4.15 10*6/uL Low 4.50-5.90 [facility] Comment on above: Performed By: #### L [id number] #### LAB [address] [address] Alpesh Yee M.D. [id number] WBC (Bld) [#/Vol] 11.17 10*3/uL High 4.50-11.00 [facility] Comment on above: Performed By: #### L [id number] #### [facility] [address] [address] Alpesh Yee M.D. [id number] AUTO NRBC 0.0 % Normal [facility] Comment on above: Performed By: #### L [id number] #### [facility] [address] [address] Alpesh Yee M.D. [id number] AUTO NRBC ABS COUNT 0.00 K/mcL Normal 0.00-0.00 [facility] Comment on above: Performed By: #### L [id number] #### LAB [address] [place] [address] Alpesh Yee M.D. [id number] BASOPHILS ABSOLUTE COUNT 0.03 K/mcL Normal 0.00-0.30 [facility] Comment on above: Performed By: #### L [id number] #### LAB [address] [address] Alpesh Yee M.D. [id number] Basophils/100 WBC (Bld) 0.2 % Normal [facility] Comment on above: Performed By: #### L [id number] #### LAB [address] [place] [address] Alpesh Yee M.D. [id number] Eosinophils (Bld) [#/Vol] 0.00 10*3/uL Normal 0.00-0.5 0 [facility] Comment on above: Performed By: #### L [id number] #### LAB [address] [place] [address] Alpesh Yee M.D. [id number] Eosinophils/100 WBC (Bld) 0.0 % Normal [facility] Comment on above: Performed By: #### L [id number] #### LAB [address] [place] [address] Alpesh Yee M.D. [id number] Erythrocyte distribution width (RBC) [Ratio] 12.1 % Normal 11.6-14.8 [facility] Comment on above: Performed By: #### L [id number] #### LAB [address] [place] [address] Alpesh Yee M.D. [id number] Hematocrit (Bld) [Volume fraction] 42.2 % Normal 41.0-53.0 [facility] Comment on above: Performed By: #### L [id number] #### LAB [address] [place] [address] Alpesh Yee M.D. [id number] Hemoglobin (Bld) [Mass/Vol] 14.2 g/dL Normal 13.5-17.5 [facility] Comment on above: Performed By: #### L [id number] #### LAB [address] [address] Alpesh Yee M.D. [id number] IG ABSOLUTE 0.05 K/mcL Normal 0.00-0.30 [facility] Comment on above: Performed By: #### L [id number] #### LAB [address] [address] Alpesh Yee M.D. [id number] IG PERCENT 0.40 % Normal [facility] Comment on above: Result Comment: The IG parameter is the percentage of metamyelocytes, myelocytes and promyelocytes. An immature granulocyte count (IG) of 1% or more suggests the possibility of infection, an IG count of 3% is very likely related to an infection. Performed By: #### L [id number] #### LAB [address] [address] Alpesh Yee M.D. [id number] Lymphocytes (Bld) [#/Vol] 0.86 10*3/uL Low 0.90-4.0 0 [facility] Comment on above: Performed By: #### L [id number] #### LAB [address] [address] Alpesh Yee M.D. [id number] Lymphocytes/100 WBC (Bld) 6.4 % Normal [facility] Comment on above: Performed By: #### L [id number] #### LAB [address] [address] Alpesh Yee M.D. [id number] MCH (RBC) [Entitic mass] 30.5 pg Normal 26.0-34.0 [facility] Comment on above: Performed By: #### L [id number] #### LAB [address] [address] Alpesh Yee M.D. [id number] MCV (RBC) [Entitic vol] 90.8 fL Normal 80.0-100.0 [facility] Comment on above: Performed By: #### L [id number] #### LAB [address] [address] Alpesh Yee M.D. [id number] MEAN CORPUSCULAR HEMOGLOBIN CONC 33.6 g/dL Normal 31.0-37.0 [facility] Comment on above: Performed By: #### L [id number] #### LAB [address] [address] Alpesh Yee M.D. [id number] Monocytes (Bld) [#/Vol] 0.71 10*3/uL Normal 0.30-0.90 [facility] Comment on above: Performed By: #### L [id number] #### LAB [address] [address] Alpesh Yee M.D. [id number] Monocytes/100 WBC (Bld) 5.3 % Normal [facility] Comment on above: Performed By: #### L [id number] #### LAB [address] [address] Alpesh Yee M.D. [id number] NEUTROPHILS ABSOLUTE COUNT 11.69 K/mcL High 1.70-7.00 [facility] Comment on above: Performed By: #### L [id number] #### LAB [address] [address] Alpesh Yee M.D. [id number] Neutrophils/100 WBC (Bld) 87.7 % Normal [facility] Comment on above: Performed By: #### L [id number] #### LAB [address] [address] Alpesh Yee M.D. [id number] Platelet mean volume (Bld) [Entitic vol] 11.7 fL Normal 9.4-12.4 [facility] Comment on above: Performed By: #### L [id number] #### LAB [address] [place] [address] Alpesh Yee M.D. [id number] Platelets (Bld) [#/Vol] 178 10*3/uL Normal 150-400 [facility] Comment on above: Performed By: #### L [id number] #### LAB [address] [place], [place] [address] Alpesh Yee M.D. [id number] RBC (Bld) [#/Vol] 4.65 10*6/uL Normal 4.50-5.90 [facility] Comment on above: Performed By: #### L [id number] #### LAB [address] [address] Alpesh Yee M.D. [id number] WBC (Bld) [#/Vol] 13.34 10*3/uL High 4.50-11.00 [facility] Comment on above: Performed By: #### L [id number] #### LAB [address] [address] Alpesh Yee M.D. [id number] CBC panel Auto (Bld)on 06-20 Erythrocyte distribution width (RBC) [Entitic vol] 12.4 % 11.6 - 14.8 % [facility] Hematocrit (Bld) [Volume fraction] 38.5 % Low 41.0 - 53.0 % [facility] Hemoglobin (Bld) [Mass/Vol] 12.6 g/dL Low 13.5 - 17.5 g/dL [facility] Interpretation and review of laboratory results Abnormal [facility] MCH (RBC) [Entitic mass] 30.5 pg 26. 0 - 34.0 pg [facility] MCHC (RBC) [Mass/Vol] 32.7 g/dL 31.0 - 37.0 g/dL [facility] MCV (RBC) [Entitic vol] 93.2 fL 80.0 - 100.0 fL [facility] Nucleated RBC (Bld) [#/Vol] 0 10*3/uL [facility] Nucleated RBC/100 WBC (Bld) [Ratio] 0 % [facility] Platelet mean volume (Bld) [Entitic vol] 11.4 fL 9.4 - 12.4 fL [facility] Platelets (Bld) [#/Vol] 163 10*3/uL [facility] RBC (Bld) [#/Vol] 4.13 10*6/uL Low [facility] WBC (Bld) [#/Vol] 10.69 10*3/uL [facility] METABOLIC PANE Omar 06-20-2024 Albumin [Mass/Vol] 3.2 g/dL Normal 3.2-5.2 [facility] Comment on above: Order Comment: [facility] has implemented the eGFR calculation approach that does not have a coefficient for race that conforms to the NKF-ASN Task Force Recommendations. Performed By: #### 4 [id number] #### LAB [address] [address] Alpesh Yee M.D. [id number] ALP [Catalytic activity/Vol] 58 U/L Normal 40-150 [facility] Comment on above: Order Comment: [facility] has implemented the eGFR calculation approach that does not have a coefficient for race that conforms to the NKF-ASN Task Force Recommendations. Performed By: #### 4 [id number] #### LAB [address] [address] Alpesh Yee M.D. [id number] ALT [Catalytic activity/Vol] 7 U/L Normal 0-50 U/L [facility] Comment on above: Order Comment: [facility] has implemented the eGFR calculation approach that does not have a coefficient for race that conforms to the NKF-ASN Task Force Recommendations. Performed By: #### 4 [id number] #### LAB [address] [address] Alpesh Yee M.D. [id number] Anion gap [Moles/Vol] 13 mmol/L Normal 10-20 [facility] Comment on above: Order Comment: [facility] has implemented the eGFR calculation approach that does not have a coefficient for race that conforms to the NKF-ASN Task Force Recommendations. Performed By: #### 4 [id number] #### LAB [address] [address] Alpesh Yee M.D. [id number] AST [Catalytic activity/Vol] 16 U/L Normal 0-50 U/L [facility] Comment on above: Order Comment: [facility] has implemented the eGFR calculation approach that does not have a coefficient for race that conforms to the NKF-ASN Task Force Recommendations. Performed By: #### 4 [id number] #### LAB [address] [address] Alpesh Yee M.D. [id number] Bilirubin [Mass/Vol] 0.5 mg/dL Normal 0.0-1.3 [facility] Comment on above: Order Comment: [facility] has implemented the eGFR calculation approach that does not have a coefficient for race that conforms to the NKF-ASN Task Force Recommendations. Performed By: #### 4 [id number] #### LAB [address] [address] Alpesh Yee M.D. [id number] Calcium [Mass/Vol] 7.6 mg/dL Low 8.4-10.2 [facility] Comment on above: Order Comment: [facility] has implemented the eGFR calculation approach that does not have a coefficient for race that conforms to the NKF-ASN Task Force Recommendations. Performed By: #### 4 [id number] #### LAB [address] [address] Alpesh Yee M.D. [id number] Chloride [Moles/Vol] 110 mmol/L High 98-108 [facility] Comment on above: Order Comment: [facility] has implemented the eGFR calculation approach that does not have a coefficient for race that conforms to the NKF-ASN Task Force Recommendations. Performed By: #### 4 [id number] #### LAB [address] [address] Alpesh Yee M.D. [id number] Creatinine [Mass/Vol] 0.54 mg/dL Normal 0.50-1.30 [facility] Comment on above: Order Comment: [facility] has implemented the eGFR calculation approach that does not have a coefficient for race that conforms to the NKF-ASN Task Force Recommendations. Performed By: #### 4 [id number] #### LAB [address] [address] Alpesh Yee M.D. [id number] EGFR 119 mL/min/1.73 m2 Normal >=60 [facility] Comment on above: Order Comment: [facility] has implemented the eGFR calculation approach that does not have a coefficient for race that conforms to the NKF-ASN Task Force Recommendations. Result Comment: Renetta mated GFR was calculated using the 2020 CKD-EPI creatinine equation. Performed By: #### 4 [id number] #### LAB [address] [address] Alpesh Yee M.D. [id number] Glucose [Mass/Vol] 122 mg/dL High 65-99 [facility] Comment on above: Order Comment: [facility] has implemented the eGFR calculation approach that does not have a coefficient for race that conforms to the NKF-ASN Task Force Recommendations. Performed By: #### 4 [id number] #### [facility] LAB [address] [address] Alpesh Yee M.D. [id number] HCO3 (Bld) [Moles/Vol] 23 mmol/L Normal 21-32 [facility] Comment on above: Order Comment: [facility] has implemented the eGFR calculation approach that does not have a coefficient for race that conforms to the NKF-ASN Task Force Recommendations. Performed By: #### 4 [id number] #### LAB [address] [address] Alpesh Yee M.D. [id number] Potassium [Moles/Vol] 3.9 mmol/L Normal 3.5-5.1 [facility] Comment on above: Order Comment: [facility] has implemented the eGFR calculation approach that does not have a coefficient for race that conforms to the NKF-ASN Task Force Recommendations. Performed By: #### 4 [id number] #### [facility] LAB [address] [address] Alpesh Yee M.D. [id number] Protein [Mass/Vol] 6.0 g/dL Normal 6.0-8.0 [facility] Comment on above: Order Comment: [facility] has implemented the eGFR calculation approach that does not have a coefficient for race that conforms to the NKF-ASN Task Force Recommendations. Performed By: #### 4 [id number] #### LAB [address] [place], [place] [address] Alpesh Yee M.D. [id number] Sodium [Moles/Vol] 142 mmol/L Normal 135-145 [facility] Comment on above: Order Comment: [facility] has implemented the eGFR calculation approach that does not have a coefficient for race that conforms to the NKF-ASN Task Force Recommendations. Performed By: #### 4 [id number] #### LAB [address] [address] Alpesh Yee M.D. [id number] Urea nitrogen [Mass/Vol] 14 mg/dL Normal 8-25 [facility] Comment on above: Order Comment: [facility] has implemented the eGFR calculation approach that does not have a coefficient for race that conforms to the NKF-ASN Task Force Recommendations. Performed By: #### 4 [id number] #### LAB [address] [address] Alpesh Yee M.D. [id number] Urea nitrogen/Creatinine [Mass ratio] 25.9 mg/mg High 10.0-20.0 [facility] Comment on above: Order Comment: [facility] has implemented the eGFR calculation approach that does not have a coefficient for race that conforms to the NKF-ASN Task Force Recommendations. Performed By: #### 4 [id number] #### LAB [address] [id number] Alpesh Yee M.D. [id number] CONSULTon 06-20-2024 CONSULT Attestation signed by Niraj Garcia DO at 06/20/2024 11:52 AM I personally saw and examined the patient discussed management with the NPP. I reviewed the NPP note. I performed the following evaluation, and management services personally which includes addressing problems and formulating medical decision m[age]-year-old male with PMH of cerebral palsy, nonverbal and bedbound at baseline, was [facility] a [facility] tube. Patient had a PEG tube placed 2 days ago (06/18), and pulled it yesterday per his jail. He was seen at yesterday, and KUB with tube study showed extravasation of contrast, concerning for malpositioning of the PEG tube. Patient was [facility] back to his jail with instructions to follow-up in 5 days. The jail then transferred him here due to concerns of poor nutrition. On arrival patient was febrile to 100.6, and tachycardic to the low 100. KUB concerning for free intraperitoneal air. On exam patient is nonverbal, but does not appear in any acute distress. Abdomen is soft, appears tender, nondistended. Labs remarkable for a leukocytosis of 11.17, CRP 198, and Pro-Devon 3.2 Assessment/plan: 53-year-old male with cerebral palsy, here with dislodgment of recently placed PEG tube, imaging concerning for free intraperitoneal air Will plan for exploratory laparotomy, and Amauri gastrostomy tube placement. Patient's guardian has been contacted, and informed consent was obtained. Follow-up CT prior to surgery Patient received a 2 L bolus, and is now on maintenance IV fluids Keep n.p.o. Place [place] for strict I's and O's Continue Zosyn, and vancomycin Rest of management per primary, and ancillary services Niraj Garcia DO General Surgery 11:51 AM 06/20/24 [facility] SURGICAL HISTORY & PHYSICAL/CONSULTATIO N NOTE SURGICAL PROBLEM Dislodged PEG tube ASSESSMENT & PLAN/ACTIVE MEDICAL PROBLEMS: Dislodged PEG -Inadvertent PEG removal in the immediate post op period could represent surgical emergency -Pt now febrile and tachycardic, IVF and antibiotics have been ordered -KUB obtained STAT at bedside and personally reviewed-no obvious free air appreciated -Obtain STAT CT AP, nursing working on contact info for guardian CHIEF COMPLAINT: Dislodged PEG HISTORY OF PRESENT ILLNESS / INJURY (HPI): Mr Castillo is a 53 yo male with cerebral palsy, he is bedbound and nonverbal, the patient is cachectic with contractures of his extremities, he had a PEG tube placed 06/18/2024 at [facility] and returned to the jail. Apparently the patient pulled the tube yesterday and was sent back to [facility]. Per reports the GI/surgeon was on vacation and the hospital sent the patient back to the jail to return in 5 days. The jail sent him to [facility] for reevaluation and patient was then transferred to [facility]. I did call the jail where he resides and they did confirm this was a new feeding tube and not a simple replacement. He was evaluated in room 2017, he is alert but nonverbal. He is now tachycardic with fevers, does not appear peritoneal but mild abdominal discomfort on exam. 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 MEDICATIONS: Current Facility-Administere d Medications on File Prior to Encounter Medication Dose Route Frequency Provider Last Rate Last Admin [COMPLETED] ondansetron (ZOFRAN) injection 4 mg 4 mg Intravenous Once Donavan Givens MD 4 mg at 06/20/24 0518 [COMPLETED] pantoprazole (PROTONIX) Vial 80 mg 80 mg Intravenous Once Donavan Givens MD 80 mg at 06/20/24 0258 [COMPLETED] valproate (DEPACON) 500 mg in sodium chloride 0.9 % (NS) 100 mL IVPB 500 mg Intravenous Once Donavan Givens MD Stopped at 06/20/24 0511 [DISCONTINUED] sodium chloride 0.9% (NS) 100 mL/hr Intravenous Continuous Donavan Givens MD Stopped at 06/20/24 0855 Current Outpatient Medications on File Prior to Encounter Medication Sig Dispense Refill divalproex (DEPAKOTE ER) 500 MG 24 hr tablet 1 (one) tablet (500 mg (more content not included)... Normal [facility] COVID-19/INFLUENZA A,B MOLEC ULARon 06-20-2024 SARS-CoV-2 (COVID-19) Ab IA Ql SARS-COV-2 (LUIS) Not Detected INFLUENZA A (LUIS) Not Detected INFLUENZA B (LUIS) Not Detected Normal Not Detected [facility] Comment on above: Performed By: #### L [id number] #### LAB [address] [address] Alpesh Yee M.D. [id number] CRP, INFLAMMATIONon 06-20-20 CRP [Mass/Vol] 198.0 mg/L High 0.0-10.0 [facility] Comment on above: Performed By: #### 4 [id number] #### LAB [address] [place], [place] [address] Alpesh Yee M.D. [id number] CRP, Inflammationon 06-20-20 CRP [Mass/Vol] 198 mg/L High 0.0 - 10.0 mg/L [facility] CT ABDOMEN PELVIS WITH IV CO NTRAST ONLYon 06-20-2024 CT ABDOMEN PELVIS WITH IV CONTRAST ONLY EXAMINATION: CT ABDOMEN PELVIS WITH IV CONTRAST ONLY HISTORY: ORDERING SYSTEM PROVIDED HISTORY: Abdominal pain, post-op, TECHNOLOGIST PROVIDED HISTORY: Illness/Other Reason for exam: post peg tube placement on 06/18. patient pulled peg. Eval for possible perforation. diffuse abdominal pain Encounter Type: Initial Additional signs and symptoms: . ORDERING SYSTEM PROVIDED DIAGNOSIS CODES: COMPARISON: Abdomen KUB from 06/20/2024. TECHNIQUE: CT examination of the abdomen and pelvis following the administration of intravenous contrast. Coronal and sagittal reformations were performed. Dose reduction techniques were achieved by using automated exposure control and/or adjustment of mA and/or kV according to patient size and/or use of iterative reconstruction technique. CONTRAST: IOPAMIDOL 370 MG IODINE/ML (76%) INTRAVENOUS SOLUTION - 75 mL, FINDINGS: There is atelectasis or parenchymal scarring in the bilateral lung bases. The liver, spleen, pancreas, and adrenal glands are unremarkable. Gallbladder is present. Kidneys enhance symmetrically. No solid or cystic renal mass. No hydronephrosis. The stomach is distended with gas. Gastrostomy tube is not visualized. No definite defect is seen in the anterior gastric wall, however, there is a small amount of free intraperitoneal air throughout the anterior abdomen. No gastric wall thickening. No dilated loops of small bowel are identified. There is rlydjacm-rj-zzkcb stool burden throughout the colon. Contrast material is present in the urinary bladder which otherwise appears unremarkable. No free fluid or lymphadenopathy in the abdomen or pelvis. There is a small amount of subcutaneous gas in the anterior abdominal wall. Abdominal aorta is normal in caliber. Moderate degenerative changes are present in the thoracolumbar spine. IMPRESSION: 1. There is a small amount of free intraperitoneal air in the anterior abdomen as well as a small amount of subcutaneous emphysema in the anterior abdominal wall. No definite defect is seen in the gastric wall to account for the site of PEG tube placement. Stomach is distended with gas. The presence of free intraperitoneal air was communicated to the ordering clinician at the time of dictation of the abdominal KUB. 2. Mksedrdx-bh-zohut stool burden. 3. Contrast material is present in the urinary bladder lumen suggesting recent intravenous contrast material administration. RPS/tde Workstation ID: [id number] Dictated by: TWILA MALAVE on TueJun 20, 2024 12:15:09 PM EST Transcribed by: BRANDT KINGSLEY on TueJun 20, 2024 12:29:47 PM EST Finalized by: TWILA MALAVE on TueJun 20, 2024 12:44:02 PM EST Normal [facility] Comment on above: Order Comment: New P EG tube placed 06/18, pt has since removed the tube. Eval for perforation. Injury/Trauma or Illness?:Illness/Other How long have you had these symptoms (acute/chronic)?:Acute Reason for exam?:post peg tube placement on 06/18. patient pulled peg. Eval for possible perforation. diffuse abdominal pain Type of Exam?:Initial Additional signs and symptoms?:. CT Abdomen and Pelvis W cont rast Sugar 06-20-2024 GE RIS GE RIS [facility] Radiology Study observation (narrative) [facility] Comprehensive metabolic 2000 panelOrdered By: Aparna Moseley on 06-20-2024 Albumin [Mass/Vol] 3.2 g/dL 3.2 - 5.2 g/dL [facility] ALP [Catalytic activity/Vol] 58 U/L 40 - 150 U/L [facility] ALT [Catalytic activity/Vol] 7 U/L 0-50 U/L [facility] Anion gap [Moles/Vol] 13 mmol/L 10 - 2 0 mmol/L [facility] AST [Catalytic activity/Vol] 16 U/L 0-50 U/L [facility] Bilirubin [Mass/Vol] 0.5 mg/dL 0.0 - 1 .3 mg/dL [facility] Calcium [Mass/Vol] 7.6 mg/dL Low 8.4 - 10. 2 mg/dL [facility] Chloride [Moles/Vol] 110 mmol/L High 98 - 10 8 mmol/L [facility] Creatinine [Mass/Vol] 0.54 mg/dL 0.50 - 1.30 mg/dL [facility] GFR/1.73 sq M.predicted CKD-EPI (S/P/Bld) [Vol rate/Area] 119 - PINF [facility] Glucose [Mass/Vol] 122 mg/dL High 65 - 99 mg/dL [facility] HCO3 [Moles/Vol] 23 mmol/L 21 - 32 mmol/L [facility] Potassium [Moles/Vol] 3.9 mmol/L 3.5 - 5.1 mmol/L [facility] Protein [Mass/Vol] 6 g/dL 6.0 - 8.0 g/dL [facility] Sodium [Moles/Vol] 142 mmol/L 135 - 145 mmol/L [facility] Urea nitrogen [Mass/Vol] 14 mg/dL 8 - 25 mg/d L [facility] Urea nitrogen/Creatinine [Mass ratio] 25.9 mg/mg High 10.0 - 20.0 [facility] ED Prov Noteon 06-20-2024 ED Prov Note ED PROVIDER NOTE [facility] NAME: Rome Castillo AGE: 53 y.o. : 1970 VISIT DATE: 06/20/2024 CSN: [id number] PCP: Cruzito Doe MD Chief Complaint Patient presents with peg tube Emesis The patient presented to the emergency room with complaint he pulled his PEG tube and needs replacement, the patient has advanced cerebral palsy, he is bedbound and nonverbal, the patient is cachectic with contractures of his extremities, he had the PEG tube replaced recently at [facility] and was sent to the jail, the patient pulled the tube today, he was sent back to [facility] but the surrounding wound started the PEG tube is on vacation and the hospital sent the patient back to the jail to wait 5 days without a PEG tube, the jail sent him over here for reevaluation, the patient also vomited 1 large coffee-ground emesis at the jail prior to arrival Emesis Past Medical History: Diagnosis Date Cerebral palsy (HCC) Dysphagia Dysphagia, oropharyngeal phase Erythematous condition, unspecified Failure to thrive 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 No pertinent family history. Social History Socioeconomic History Marital status: Single Tobacco Use Smoking status: Never Smokeless tobacco: Never Vaping Use Vaping status: Unknown Substance and Sexual Activity Alcohol use: Not Currently Drug use: Not Currently Previous Medications Medication Sig divalproex (DEPAKOTE ER) 500 MG 24 hr tablet 1 (one) tablet (500 mg total) by Other route at bedtime Per G tube . divalproex (DEPAKOTE) [address] tablet 1 (one) tablet (125 mg total) by Other route daily Per G Tube . loratadine (CLARITIN) 5 mg chewable tablet 1 (one) tablet (5 mg total) by Per G Tube route daily . mirtazapine (REMERON) 15 MG tablet 1 (one) tablet (15 mg total) by Per G Tube route nightly . polyethylene glycol (MIRALAX) 17 gram powder 17 (seventeen) g by Per G Tube route daily . risperiDONE (RISPERDAL) 2 MG tablet 1 (one) tablet (2 mg total) by Per G Tube route nightly . No Known Allergies Review of Systems Unable to perform ROS: Patient nonverbal Gastrointestinal: Positive for vomiting. Patient Vitals for the past 24 hrs: BP Temp Temp src Pulse Resp SpO2 Weight 06/20/24 0630 109/77 -- -- (!) 109 -- 93 % -- 06/20/24 0614 -- 98.6 degrees F (37 degrees C) Temporal -- -- -- -- 06/20/24 0600 116/73 -- -- (!) 109 -- 93 % -- 06/20/24 0558 -- -- -- (!) 109 -- 93 % -- 06/20/24 0530 113/80 -- -- (!) 111 18 93 % -- 06/20/24 0500 114/79 -- -- (!) 105 18 94 % -- 06/20/24 0430 99/80 -- -- (!) 108 (!) 19 94 % -- 06/20/24 0400 105/76 -- -- (!) 111 (!) 19 93 % -- 06/20/24 0330 106/82 -- -- (!) 102 -- 93 % -- 06/20/24 0300 123/77 -- -- (!) 106 -- 93 % -- 06/20/24 0241 120/82 -- -- (!) 108 18 93 % -- 06/20/24 0213 100/86 98.6 degrees F (37 degrees C) -- (!) 118 18 94 % 59 kg (130 lb) Physical Exam Vitals and nursing note reviewed. Constitutional: General: He is not in acute distress. Comments: The patient is alert not in distress, bedbound, cachectic HENT: Head: Normocephalic. Eyes: Extraocular Movements: Extraocular movements intact. Musculoskeletal: Cervical back: Neck supple. Comments: All extremities are contracted Pulmonary: Effort: Pulmonary effort is normal. No respiratory distress. Abdominal: Palpations: Abdomen is soft. Skin: General: Skin is warm. Neurological: Mental Status: He is alert. Comments: The patient is alert and nonverbal, bedbound and extremities contracted Laboratory & Radiographic Imaging (if done): Results for orders placed or performed during the hospital encounter of 06/20/24 POC CBC and Differential Result Value Ref Range WBC 14.24 (H) 4.50 - 11.00 K/mcL RBC 4.75 4.50 - 5.90 M/mcL Hemoglobin 14.7 13.5 - 17.5 g/dL Hematocrit 44.0 41.0 - 53.0 % MCV 92.6 80.0 - 100.0 fL MCH 30.9 26.0 - 34.0 pg MCHC 33.4 31.0 - 37.0 g/dL RDW - CV 12.0 11.6 - 14.8 % Neutrophils 88.5 % Lymphocytes 6.1 % Monocytes 5.2 % Eosinophils 0.0 % Basophils 0.1 % IG Percent 0.10 % Neutrophils Abs 12.60 (H) 1.70 - 7.00 K/mcL Lymphocytes Abs 0.87 (L) 0.90 - 4.00 K/mcL Monocytes Abs 0.74 0.30 - 0.90 K/mcL Eosinophils Abs 0.00 0.00 - 0.50 K/mcL Basophils Abs 0.01 0.00 - 0.30 K/mcL IG Absolute 0.02 0.00 - 0.30 K/mcL Comment See Comment (CR) (none) POC Basic Metabolic Panel Result Value Ref Range Glucose 133 (H) 65 - 99 mg/dL BUN 13 8 - 25 mg/dL Creatinine 0.51 0.50 - 1.30 mg/dL GFR 121 >=60 mL/min/1.73 m2 Sodium 137 135 - 145 mmol/L Potassium 5.5 (H) 3.5 - 5.1 mmol/L Chloride 106 98 - 108 mmol/L TCO2 21 21 - 32 mmol/L Ionized Calcium 4.4 (L) 4.5 - 5 (more content not included)... Normal [facility] ESR Westergren method (Bld) [Velocity]on 06-20-2024 ESR (Bld) [Velocity] 28 mm/h High [facility] Interpretation and review of laboratory results Abnormal [facility] Glucose (Bld) [Mass/Vol]on 08-20-2023 Glucose [Mass/Vol] 117 mg/dL High 65 - 99 mg/dL [facility] Interpretation and review of laboratory results Abnormal [facility] Glucose [Mass/Vol] 109 mg/dL High 65 - 99 mg/dL [facility] Interpretation and review of laboratory results Abnormal [facility] HEMOGLOBIN A1Con 06-20-2024 Glucose [Mass/Vol] 108 mg/dL Normal 74-114 [facility] Comment on above: Performed By: #### 4 [id number] #### LAB [address] [address] Alpesh Yee M.D. [id number] HbA1c (Bld) [Mass fraction] 5.4 % Normal 4.2-5.6 [facility] Comment on above: Performed By: #### 4 8202 #### LAB [address] [address] Alpesh Yee M.D. [id number] HEPATIC FUNCTION PANELon Albumin [Mass/Vol] 3.5 g/dL Normal 3.2-5.2 [facility] Comment on above: Performed By: #### 4 6932 #### LAB [address] [address] Alpesh Yee M.D. [id number] ALP [Catalytic activity/Vol] 63 U/L Normal 40-150 [facility] Comment on above: Performed By: #### 4 [id number] #### LAB [address] [address] Alpesh Yee M.D. [id number] ALT [Catalytic activity/Vol] 9 U/L Normal 0-50 U/L [facility] Comment on above: Performed By: #### 4 [id number] #### LAB [address] [address] Alpesh Yee M.D. [id number] AST [Catalytic activity/Vol] 15 U/L Normal 0-50 U/L [facility] Comment on above: Performed By: #### 4 [id number] #### [facility] LAB [address] [address] Alpesh Yee M.D. [id number] Bilirubin [Mass/Vol] 0.6 mg/dL Normal 0.0-1.3 [facility] Comment on above: Performed By: #### 4 [id number] #### LAB [address] [place], [place] [address] Alpesh Yee M.D. [id number] Bilirubin.indirect [Mass/Vol] 0.2 mg/dL Normal 0.0-0.4 [facility] Comment on above: Performed By: #### 4 [id number] #### LAB [address] [id number] Alpesh Yee M.D. [id number] Protein [Mass/Vol] 6.6 g/dL Normal 6.0-8.0 [facility] Comment on above: Performed By: #### 4 [id number] #### LAB [address] [address] Alpesh Yee M.D. [id number] HbA1c (Bld) [Mass fraction]o n 06-20-2024 Average glucose Estimated from glycated hemoglobin (Bld) [Mass/Vol] 108 mg/dL 74 - 114 mg/dL [facility] Interpretation and review of laboratory results Normal [facility] Hemoglobin A1con 06-20-2024 HbA1c (Bld) [Mass fraction] 5.4 % 4.2 - 5.6 % [facility] Hepatic function 2000 panelo n 06-20-2024 Albumin [Mass/Vol] 3.5 g/dL 3.2 - 5.2 g/dL [facility] ALP [Catalytic activity/Vol] 63 U/L 40 - 150 U/L [facility] ALT [Catalytic activity/Vol] 9 U/L 0-50 U/L [facility] AST [Catalytic activity/Vol] 15 U/L 0-50 U/L [facility] Bilirubin [Mass/Vol] 0.6 mg/dL 0.0 - 1 .3 mg/dL [facility] Bilirubin.conjugated [Mass/Vol] 0.2 mg/dL 0.0 - 0.4 mg/dL [facility] Protein [Mass/Vol] 6.6 g/dL 6.0 - 8.0 g/dL [facility] INR Coag (PPP) [Relative annette e]on 06-20-2024 PT Coag (PPP) [Time] 14 s [facility] Influenza virus A and B RNA and SARS-CoV-2 (COVID-19) N gene panel DALIA+probe (Resp)Ordered By: Bertha Dias on 06-20-2024 FLUAV RNA DALIA+probe Ql (Unsp spec) Not detected Not Detected [facility] FLUBV RNA DALIA+probe Ql (Unsp spec) Not detected Not Detected [facility] Interpretation and review of laboratory results Normal [facility] SARS-CoV-2 (COVID-19) RNA DALIA+probe Ql (Resp) Not detected Not Detected [facility] LACTIC ACID, PLASMAon 2023 LACTIC ACID, PLASMA 1.1 mmol/L Normal 0.6-2.0 [facility] Comment on above: Performed By: #### 4 6053 #### LAB [address] [address] Alpesh Yee M.D. [id number] LACTIC ACID, PLASMA 1.0 mmol/L Normal 0.6-2.0 [facility] Comment on above: Performed By: #### 4 6053 #### LAB [address] [address] Alpesh Yee M.D. [id number] LEGIONELLA ANTIGEN, URINEon 06-20-2024 LEGIONELLA ANTIGEN, URINE LEGIONELLA ANT IGEN Negative for Legionella antigen COMMENT: Results may be affected if patient is on diuretics. INTERPRETATION OF RESULTS: Test detects Legionella pneumophilia serogroup 1 antigens in urine. Legionnaires disease cannot be ruled out since other serogroups and species may also cause disease. Normal [facility] Comment on above: Performed By: #### 4 4014 #### LAB [address] [address] Alpesh Yee M.D. [id number] Lactate [Moles/Vol]on 2023 Interpretation and review of laboratory results Normal [facility] Interpretation and review of laboratory results Normal [facility] Lactic Acid, Plasmaon 2023 Lactate [Moles/Vol] 1.1 mmol/L 0.6 - 2. 0 mmol/L [facility] Lactate [Moles/Vol] 1 mmol/L 0.6 - 2. 0 mmol/L [facility] Legionella Antigen, UrineOrd ered By: Ana Onofre on 06-20-2024 Interpretation and review of laboratory results Normal [facility] L. pneumophila Ag Ql (U) Negative Neg ative for Legionella antigen [facility] MAGNESIUM LEVELon 06-20-2024 Magnesium [Mass/Vol] 1.8 mg/dL Normal 1.6-2.4 [facility] Comment on above: Performed By: #### 4 6109 ####[facility] LAB [address] [place], [place] [address] Alpesh Yee M.D. [id number] Magnesium [Mass/Vol] 1.9 mg/dL Normal 1.6-2.4 [facility] Comment on above: Performed By: #### 4 6109 ####[facility] LAB [address] [address] Alpesh Yee M.D. [id number] MRSA DNA AMPLIFIED PROBEon 1 08-20-2023 MRSA DNA AMPLIFIED PROBE Negative Normal Not Detected, MRSA NEGATIVE [facility] Comment on above: Performed By: #### 4 8061 #### LAB [address] [address] Alpesh Yee M.D. [id number] MRSA DNA Amplified ProbeOrde red By: Estephanie Lyman on 06-20-2024 MRSA DNA DALIA+probe Ql (Unsp spec) Negative Not Detected, MRSA NEGATIVE [facility] MRSA DNA DALIA+probe Ql (Unsp spec)Ordered By: Estephanie Lyman on 06-20-2024 Interpretation and review of laboratory results Normal [facility] Magnesiumon 06-20-2024 Magnesium [Mass/Vol] 1.9 mg/dL 1.6 - 2 .4 mg/dL [facility] Magnesium Levelon 06-20-2024 Magnesium [Mass/Vol] 1.8 mg/dL 1.6 - 2 .4 mg/dL [facility] Magnesium [Mass/Vol]on 06-20 Interpretation and review of laboratory results Normal [facility] No Panel InformationOrdered By: Aparna Moseley on 06-20-2024 Interpretation and review of laboratory results Abnormal [facility] No Panel Informationon 06-20 GE RIS GE RIS [facility] Interpretation and review of laboratory results Abnormal [facility] Interpretation and review of laboratory results Normal [facility] Interpretation and review of laboratory results Normal [facility] No Panel InformationOrdered By: Twila Malave on 06-20-2024 [facility] Work Phone: OP NOTEon 06-20-2024 OP NOTE Operative Note Patient Name: Rome Castillo : 1970 (53 y.o.) Date of Service: 06/20/2024 CSN: [id number] Procedure(s): EXPLORATORY LAPAROTOMY WITH JAMES PATCH REPAIR OF GASTRIC PERFORATION AND GASTROSTOMY TUBE PLACEMENT Pre-Operative Diagnoses: Dislodged PEG tube with pneumoperitoneum Post-Operative Diagnoses: Gastric perforation Surgeons and Role: * Niraj Garcia DO - Primary Anesthesiologist: Singh Quiñonez MD Anesthesiologist Audience Development Manager: Sarkis Omalley AA Pit Boss: Foster Price RN Scrub Person: Olga Lidia Negron ST BOAT DISPATCHER: Niki Reyes RN Indication: 53-year-old male with past medical history of cerebral palsy, bed bound and non-verbal at baseline, was admitted to the hospital with a dislodged recently placed PEG tube, and pneumoperitoneum. The decision was made to take the patient for an exploratory laparotomy with possible gastrostomy tube placement. We discussed the risk and benefits of the procedure with the patient's guardian including but not limited to: Infection, bleeding, and damage to surrounding structures. All their questions were answered. Informed consent was obtained and placed in patient's chart. Procedure: After verifying informed consent in the preoperative area, the patient was brought to the operating room under care of anesthesia, and positioned supine on operating room table. SCDs were placed. Preoperative antibiotics were continued. After adequate intravenous sedation, general endotracheal anesthesia was administered by the anesthesia team. A Ellsworth catheter was inserted. The abdomen was prepped with chlorhexidine, and draped in usual sterile fashion. A timeout was performed confirming correct patient, correct procedure, and preoperative administration of antibiotics. Using a #10 scalpel an upper midline incision was made, and carried down to the fascia with electrocautery. The fascia was opened with care being taken to avoid any injury to the underlying bowel. No turbid fluid, or purulence was identified on entry into the abdomen. The stomach was identified, and pulled down into the incision. After careful inspection, we were able to identify a perforation on the posterior aspect of the stomach, with some adherent omentum, and surrounding fibrinous exudate. The transverse colon was carefully inspected, and no injury was noted. The perforation measured approximately 5 mm across. Interrupted 3-0 silk sutures were used to close the perforation, and the tails of the sutures were used to tie down a tongue of omentum over the perforation. The abdomen was then irrigated with 2 L of normal saline. A 10 Canadian drain was brought through the right upper quadrant, positioned posterior to the site of repair, and secured at the skin with a 3-0 nylon suture. We then turned our attention to placement of a new gastrostomy tube. Using a 3-0 silk the lateral aspect of the body of the stomach sutured to the anterior abdominal wall. An inner and outer 3-0 silk pursestring suture was then placed medial to the tacking suture on the anterior body of the stomach. A size 22 gastrostomy tube was passed through the abdominal wall to the left of our midline incision. The balloon was tested after the tube was passed, and noted to hold pressure appropriately. The stomach was opened with electrocautery in the middle of the pursestring sutures, and the gastrostomy tube was positioned inside the stomach. The balloon was inflated, and the pursestrings were tied around the drain. The pursestring suture was then used to tack the stomach to the anterior abdominal wall. An additional two 3-0 silk sutures were used to tack the stomach medial to the site of the gastrostomy. The bumper was positioned snuggly against the skin, and we noted that the tube was at 3 cm. The abdomen was then once again inspected, and hemostasis was confirmed. 50 cc of water with Betadine was flushed to the stomach, and no extravasation was noted in the abdominal cavity. On compression of the the stomach there was return of the Betadine water through the tube, confirming placement of the gastrostomy tube. The midline fascia was closed with 2 running #1 PDS sutures starting at both ends, and meeting in the middle.. Subcutaneous tissues were irrigated with normal saline. The skin was closed with nae, and covered with 4 x 4's and tape. All sponge, instrument, and needle counts were correct at the end of the procedure. The patient tolerated the procedure well without any obvious complications. The patient was aroused from anesthesia, extubated, and transferred to PACU in stable condition. I was present for all portions of procedure. Type of anesthesia used: General Estimated blood loss: 20 cc Estimated urine output: 200 mL Specimen(s): * No specimens in log * Implant(s): Implant Name Type Inv. Item Serial No. Spool Worker Lot No (more content not included)... Normal [facility] PHOSPHORUSon 06-20-2024 Phosphate [Mass/Vol] 2.5 mg/dL Low 2.7-4.5 [facility] Comment on above: Performed By: #### 4 [id number] #### LAB [address] [place], [place] [address] Alpesh Yee M.D. [id number] Phosphate [Mass/Vol] 3.4 mg/dL Normal 2.7-4.5 [facility] Comment on above: Performed By: #### 4 4014 #### [facility] [address] [place], [place] [address] Alpesh Yee M.D. [id number] POC BASIC METABOLIC PANEL [facility] 06-20-2024 Chloride [Moles/Vol] 106 mmol/L Normal 98-108 [facility] Comment on above: Order Comment: [facility] has implemented the eGFR calculation approach that does not have a coefficient for race that conforms to the NKF-ASN Task Force Recommendations. CO2 [Moles/Vol] 21 mmol/L Normal 21-32 [facility] Comment on above: Order Comment: [facility] has implemented the eGFR calculation approach that does not have a coefficient for race that conforms to the NKF-ASN Task Force Recommendations. Creatinine [Mass/Vol] 0.51 mg/dL Normal 0.50-1.30 [facility] Comment on above: Order Comment: [facility] has implemented the eGFR calculation approach that does not have a coefficient for race that conforms to the NKF-ASN Task Force Recommendations. Glucose [Mass/Vol] 133 mg/dL High 65-99 [facility] Comment on above: Order Comment: [facility] has implemented the eGFR calculation approach that does not have a coefficient for race that conforms to the NKF-ASN Task Force Recommendations. POC GFR 121 mL/min/1.73 m2 Normal >=60 [facility] Comment on above: Order Comment: [facility] has implemented the eGFR calculation approach that does not have a coefficient for race that conforms to the NKF-ASN Task Force Recommendations. Result Comment: Renetta mated GFR was calculated using the 2020 CKD-EPI creatinine equation. POC IONIZED CALCIUM 4.4 mg/dL Low 4.5-5.3 [facility] Comment on above: Order Comment: [facility] has implemented the eGFR calculation approach that does not have a coefficient for race that conforms to the NKF-ASN Task Force Recommendations. Potassium [Moles/Vol] 5.5 mmol/L High 3.5-5.1 [facility] Comment on above: Order Comment: [facility] has implemented the eGFR calculation approach that does not have a coefficient for race that conforms to the NKF-ASN Task Force Recommendations. Sodium [Moles/Vol] 137 mmol/L Normal 135-145 [facility] Comment on above: Order Comment: [facility] has implemented the eGFR calculation approach that does not have a coefficient for race that conforms to the NKF-ASN Task Force Recommendations. Urea nitrogen [Mass/Vol] 13 mg/dL Normal 8-25 [facility] Comment on above: Order Comment: [facility] has implemented the eGFR calculation approach that does not have a coefficient for race that conforms to the NKF-ASN Task Force Recommendations. POC CBC AND DIFFERENTIALon 1 08-20-2023 BASOPHILS ABSOLUTE COUNT 0.01 K/mcL Normal 0.00-0.30 [facility] Basophils/100 WBC (Bld) 0.1 % Normal [facility] Eosinophils (Bld) [#/Vol] 0.00 10*3/uL Normal 0.00-0.5 0 [facility] Eosinophils/100 WBC (Bld) 0.0 % Normal [facility] Erythrocyte distribution width (RBC) [Ratio] 12.0 % Normal 11.6-14.8 [facility] Hematocrit (Bld) [Volume fraction] 44.0 % Normal 41.0-53.0 [facility] Hemoglobin (Bld) [Mass/Vol] 14.7 g/dL Normal 13.5-17.5 [facility] IG ABSOLUTE 0.02 K/mcL Normal 0.00-0.30 [facility] IG PERCENT 0.10 % Normal [facility] Comment on above: Result Comment: The IG parameter is the percentage of metamyelocytes, myelocytes and promyelocytes. An immature granulocyte count (IG) of 1% or more suggests the possibility of infection, an IG count of 3% is very likely related to an infection. Lymphocytes (Bld) [#/Vol] 0.87 10*3/uL Low 0.90-4.0 0 [facility] Lymphocytes/100 WBC (Bld) 6.1 % Normal [facility] MCH (RBC) [Entitic mass] 30.9 pg Normal 26.0-34.0 [facility] MCV (RBC) [Entitic vol] 92.6 fL Normal 80.0-100.0 [facility] MEAN CORPUSCULAR HEMOGLOBIN CONC 33.4 g/dL Normal 31.0-37.0 [facility] Monocytes (Bld) [#/Vol] 0.74 10*3/uL Normal 0.30-0.90 [facility] Monocytes/100 WBC (Bld) 5.2 % Normal [facility] NEUTROPHILS ABSOLUTE COUNT 12.60 K/mcL High 1.70-7.00 [facility] Neutrophils/100 WBC (Bld) 88.5 % Normal [facility] RBC (Bld) [#/Vol] 4.75 10*6/uL Normal 4.50-5.90 [facility] WBC (Bld) [#/Vol] 14.24 10*3/uL High 4.50-11.00 [facility] [id number] See Comment Critically abnormal (none) [facility] Comment on above: Result Comment: RACHEL REHMAN. CBCD reordered and sent to . Possible interfering substance affecting the PLT parameters. [facility] Glucose [Mass/Vol] 117 mg/dL High 65-99 [facility] Comment on above: Performed By: #### 4 [id number] #### LAB [address] [place], [place] [address] Alpesh Yee M.D. [id number] Glucose [Mass/Vol] 109 mg/dL High 65-99 [facility] Comment on above: Performed By: #### 4 [id number] #### LAB [address] [place], [place] [address] Alpesh Yee M.D. [id number] PROCALCITONINon 06-20-2024 PROCALCITONIN 3.20 ng/ml High <0.50 [facility] Comment on above: Order Comment: Injur y/Trauma or Illness?:Illness/Other How long have you had these symptoms (acute/chronic)?:Unknown Reason for exam?:status post repair of gastric perforation. Please perform study with Gastrografin through G-tube Type of Exam?:Initial Additional signs and symptoms?:. Fluoro time in minutes:2.29 two minutes and twenty nine seconds Fluoro dose in mGy?:102.6 Performed By: #### 4 [id number] #### LAB [address] [address] Alpesh Yee M.D. [id number] PT/INRon 06-20-2024 INR Coag (PPP) [Relative time] 1.1 {INR} 0.8 - 1.1 [facility] INR Coag (PPP) [Relative time] 1.1 {INR} Normal 0.8-1.1 [facility] Comment on above: Order Comment: Consi quita daily PT/INR in patients with liver diseaseDuring the induction phase of oral anticoagulation, the INR may not reflect the anticoagulation status of the patient. Therapeutic ranges for INR's are:Most clinical situations: INR 2.0-3.0Mechanical Prosthetic Valve: INR 2.5-3.5Critical: INR >5.0 Performed By: #### 4 7222 #### LAB [address] [address] Alpesh Yee M.D. [id number] PT Coag (PPP) [Time] 14.0 s Normal 11.8-14.3 [facility] Comment on above: Order Comment: Consi quita daily PT/INR in patients with liver diseaseDuring the induction phase of oral anticoagulation, the INR may not reflect the anticoagulation status of the patient. Therapeutic ranges for INR's are:Most clinical situations: INR 2.0-3.0Mechanical Prosthetic Valve: INR 2.5-3.5Critical: INR >5.0 Performed By: #### 4 7222 #### LAB [address] [address] Alpesh Yee M.D. [id number] Phosphoruson 06-20-2024 Phosphate [Mass/Vol] 2.5 mg/dL Low 2.7 - 4 .5 mg/dL [facility] Phosphate [Mass/Vol] 3.4 mg/dL 2.7 - 4 .5 mg/dL [facility] Procalcitoninon 06-20-2024 Procalcitonin [Mass/Vol] 3.2 ng/mL High JASON F - 0.50 ng/ml [facility] Procalcitonin [Mass/Vol]on 08-20-2023 Interpretation and review of laboratory results Abnormal [facility] RESPIRATORY PCR PANELon 05-26 RESPIRATORY PCR PANEL INFLUENZA A FILMARRAY Not Detected INFLUENZA B FILM ARRAY Not Detected PARAINFLUENZA VIRUS 1 Not Detected PARAINFLUENZA VIRUS 2 Not Detected PARAINFLUENZA VIRUS 3 Not Detected PARAINFLUENZA VIRUS 4 Not Detected RESPIRATORY SYNCYTIAL VIRUS FILM ARRAY Not Detected HUMAN METAPNEUMOVIRUS Not Detected HUMAN RHINOVIRUS/ENTEROVIR US Not Detected ADENOVIRUS FILM ARRAY Not Detected CORONAVIRUS 229E Not Detected CORONAVIRUS HKU1 Not Detected CORONAVIRUS NL63 Not Detected CORONAVIRUS OC43 Not Detected BORDETELLA PARAPERTUSSIS Not Detected BORDETELLA PERTUSSIS Not Detected MYCOPLASMA PNEUMONIAE Not Detected CHLAMYDIA PNEUMONIAE Not Detected SARS-COV-2 (BIOFIRE) Not Detected Normal Not Detected [facility] Comment on above: Performed By: #### L [id number] ####[facility] [address] [place] [address] Mundo Dao M.D. [id number] Respiratory pathogens DNA an d RNA panel DALIA+non-probe (Nph)Ordered By: Andres Carmona on 06-20-2024 Adenovirus DNA DALIA+non-probe Ql (Nph) Not detected Not Detected [facility] B. parapertussis [id number] DNA DALIA+non-probe Ql (Nph) Not detected Not Detected [facility] B. pertussis toxin promoter region DALIA+non-probe Ql (Nph) Not detected [facility] DNA DALIA+non-probe Ql (Nph) Not detected Not Detected [facility] FLUAV RNA DALIA+non-probe Ql (Nph) Not detected Not Detected [facility] FLUBV RNA DALIA+non-probe Ql (Nph) Not detected Not Detected [facility] HCoV 229E RNA DALIA+non-probe Ql (Nph) Not detected Not Detected [facility] HCoV HKU1 RNA DALIA+non-probe Ql (Nph) Not detected Not Detected [facility] HCoV NL63 RNA DALIA+non-probe Ql (Nph) Not detected Not Detected [facility] HCoV OC43 RNA DALIA+non-probe Ql (Nph) Not detected Not Detected [facility] hMPV RNA DALIA+non-probe Ql (Nph) Not detected Not Detected [facility] Interpretation and review of laboratory results Normal [facility] M. pneumoniae DNA DALIA+non-probe Ql (Nph) Not detected Not Detected [facility] Parainfluenza virus 1 RNA DALIA+non-probe Ql (Nph) Not detected Not Detected [facility] Parainfluenza virus 2 RNA DALIA+non-probe Ql (Nph) Not detected Not Detected [facility] Parainfluenza virus 3 RNA DALIA+non-probe Ql (Nph) Not detected Not Detected [facility] Parainfluenza virus 4 RNA DALIA+non-probe Ql (Nph) Not detected Not Detected [facility] Rhinovirus+Enterovirus RNA DALIA+non-probe Ql (Nph) Not detected Not Detected [facility] RSV RNA DALIA+non-probe Ql (Nph) Not detected Not Detected [facility] SARS-CoV-2 (COVID-19) RNA DALIA+non-probe Ql (Nph) Not detected Not Detected [facility] S. pneumoniae Urine Antigeno n 06-20-2024 Interpretation and review of laboratory results Normal [facility] S. pneumoniae Ag Ql (U) Negative Pres umptive Negative for Pneumococcal pneumoniae [facility] S.PNEUMONIAE URINE ANTIGENon 06-20-2024 S.PNEUMONIAE URINE ANTIGEN STREP PNEUMONIAE ANTIGEN, URINE Presumptive Negative for Pneumococcal pneumoniae A negative result suggests no current or recent pneumococcal infection. A negative result does not rule out Streptococcus pneumoniae infection since the antigen present in the sample may be below the detection limit of the test. Normal [facility] Comment on above: Performed By: #### 4 [id number] #### [facility] [address] [place], [place] [address] Alpesh Yee M.D. [id number] SEDIMENTATION RATEon 024 SEDIMENTATION RATE, ERYTHROCYTE 28 mm/hr High 0-20 [facility] Comment on above: Performed By: #### 4 [id number] #### LAB [address] [place] [address] Alpesh Yee M.D. [id number] TYPE AND SCREENon 06-20-2024 TYPE AND SCREEN ABORH: B Negative AB SCREEN: Negative EXPIRATION DATE: 06/23/2024 23:59 EST Normal [facility] Comment on above: Order Comment: Draw before administering any antibiotics. URINALYSISon 06-20-2024 BACTERIA, URINE None Seen Normal None Seen [facility] Comment on above: Order Comment: Micro scopic examination is performed on all urinalysis samples and only positive findings are reported. The test for blood on the chemical analytic portion of urinalysis may also be positive due to hemoglobinuria and myoglobinuria and if red blood cells are present they are quantified by microscopic examination. Performed By: #### 4 [id number] #### LAB [address] [place] [address] Alpesh Yee M.D. [id number] BILIRUBIN, URINE Negative Normal Negative [facility] Comment on above: Order Comment: Micro scopic examination is performed on all urinalysis samples and only positive findings are reported. The test for blood on the chemical analytic portion of urinalysis may also be positive due to hemoglobinuria and myoglobinuria and if red blood cells are present they are quantified by microscopic examination. Performed By: #### 4 [id number] #### LAB [address] [place] [address] Alpesh Yee M.D. [id number] BLOOD, URINE Negative Normal Negative [facility] Comment on above: Order Comment: Micro scopic examination is performed on all urinalysis samples and only positive findings are reported. The test for blood on the chemical analytic portion of urinalysis may also be positive due to hemoglobinuria and myoglobinuria and if red blood cells are present they are quantified by microscopic examination. Performed By: #### 4 [id number] #### LAB [address] [place] [address] Alpesh Yee M.D. [id number] Clarity (U) Clear Normal Clear [facility] Comment on above: Order Comment: Micro scopic examination is performed on all urinalysis samples and only positive findings are reported. The test for blood on the chemical analytic portion of urinalysis may also be positive due to hemoglobinuria and myoglobinuria and if red blood cells are present they are quantified by microscopic examination. Performed By: #### 4 [id number] #### LAB [address] [place] [address] Alpesh Yee M.D. [id number] Color (U) Yellow Normal Colorless, Yellow [facility] Comment on above: Order Comment: Micro scopic examination is performed on all urinalysis samples and only positive findings are reported. The test for blood on the chemical analytic portion of urinalysis may also be positive due to hemoglobinuria and myoglobinuria and if red blood cells are present they are quantified by microscopic examination. Performed By: #### 4 [id number] #### LAB [address] [place] [address] Alpesh Yee M.D. [id number] Glucose Ql (U) Negative Normal Negative, >=1000 [facility] Comment on above: Order Comment: Micro scopic examination is performed on all urinalysis samples and only positive findings are reported. The test for blood on the chemical analytic portion of urinalysis may also be positive due to hemoglobinuria and myoglobinuria and if red blood cells are present they are quantified by microscopic examination. Performed By: #### 4 [id number] #### LAB [address] [place] [address] Alpesh Yee M.D. [id number] Ketones Ql (U) 20 mg/dL Abnormal Negative [facility] Comment on above: Order Comment: Micro scopic examination is performed on all urinalysis samples and only positive findings are reported. The test for blood on the chemical analytic portion of urinalysis may also be positive due to hemoglobinuria and myoglobinuria and if red blood cells are present they are quantified by microscopic examination. Performed By: #### 4 [id number] #### LAB [address] [place] [address] Alpesh Yee M.D. [id number] Leukocyte esterase Test strip Ql (U) Negative Normal Negative [facility] Comment on above: Order Comment: Micro scopic examination is performed on all urinalysis samples and only positive findings are reported. The test for blood on the chemical analytic portion of urinalysis may also be positive due to hemoglobinuria and myoglobinuria and if red blood cells are present they are quantified by microscopic examination. Performed By: #### 4 [id number] #### LAB [address] [place] [id number] Alpesh Yee M.D. [id number] MUCUS, URINE Rare Normal None Seen, Rare [facility] Comment on above: Order Comment: Micro scopic examination is performed on all urinalysis samples and only positive findings are reported. The test for blood on the chemical analytic portion of urinalysis may also be positive due to hemoglobinuria and myoglobinuria and if red blood cells are present they are quantified by microscopic examination. Performed By: #### 4 [id number] #### LAB [address] [place] [id number] Alpesh Yee M.D. [id number] NITRITE, URINE Negative Normal Negative [facility] Comment on above: Order Comment: Micro scopic examination is performed on all urinalysis samples and only positive findings are reported. The test for blood on the chemical analytic portion of urinalysis may also be positive due to hemoglobinuria and myoglobinuria and if red blood cells are present they are quantified by microscopic examination. Performed By: #### 4 [id number] #### LAB [address] [place] [id number] Alpesh Yee M.D. [id number] pH (U) 5.5 [pH] Normal 5.0-7.0 [facility] Comment on above: Order Comment: Micro scopic examination is performed on all urinalysis samples and only positive findings are reported. The test for blood on the chemical analytic portion of urinalysis may also be positive due to hemoglobinuria and myoglobinuria and if red blood cells are present they are quantified by microscopic examination. Performed By: #### 4 [id number] #### LAB [address] [place] [id number] Alpesh Yee M.D. [id number] PROTEIN, URINE Negative Normal Negative [facility] Comment on above: Order Comment: Micro scopic examination is performed on all urinalysis samples and only positive findings are reported. The test for blood on the chemical analytic portion of urinalysis may also be positive due to hemoglobinuria and myoglobinuria and if red blood cells are present they are quantified by microscopic examination. Performed By: #### 4 [id number] #### LAB [address] [place], [place] [address] Alpesh Yee M.D. [id number] RBC LM.HPF (Urine sed) [#/Area] 3 /[HPF] Normal 0-3 [facility] Comment on above: Order Comment: Micro scopic examination is performed on all urinalysis samples and only positive findings are reported. The test for blood on the chemical analytic portion of urinalysis may also be positive due to hemoglobinuria and myoglobinuria and if red blood cells are present they are quantified by microscopic examination. Performed By: #### 4 [id number] #### LAB [address] [place] [address] Alpesh Yee M.D. [id number] Specific gravity (U) [Rel density] > High 1.005-1.025 [facility] Comment on above: Order Comment: Micro scopic examination is performed on all urinalysis samples and only positive findings are reported. The test for blood on the chemical analytic portion of urinalysis may also be positive due to hemoglobinuria and myoglobinuria and if red blood cells are present they are quantified by microscopic examination. Result Comment: Abno rmally high specific gravity results can be the result of the presence of x-ray or radiographic contrast media or mannitol(diuretic) administration or with large amounts of protein, glucose or in cloudy specimens. Performed By: #### 4 [id number] #### LAB [address] [place], [place] [address] Alpesh Yee M.D. [id number] UROBILINOGEN, URINE <2.0 Normal <2.0 [facility] Comment on above: Order Comment: Micro scopic examination is performed on all urinalysis samples and only positive findings are reported. The test for blood on the chemical analytic portion of urinalysis may also be positive due to hemoglobinuria and myoglobinuria and if red blood cells are present they are quantified by microscopic examination. Performed By: #### 4 [id number] #### LAB [address] [place], [place] [address] Alpesh Yee M.D. [id number] WBC LM.HPF (Urine sed) [#/Area] 1 /[HPF] Normal 0-5 [facility] Comment on above: Order Comment: Micro scopic examination is performed on all urinalysis samples and only positive findings are reported. The test for blood on the chemical analytic portion of urinalysis may also be positive due to hemoglobinuria and myoglobinuria and if red blood cells are present they are quantified by microscopic examination. Performed By: #### 4 [id number] #### LAB [address] [place], [place] [address] Alpesh Yee M.D. [id number] URINE AEROBIC CULTUREon 05-26 URINE AEROBIC CULTURE URINE CULTURE No Growth (<1,000 CFU/mL) Normal [facility] Comment on above: Performed By: #### 4 [id number] ####[facility] [place] [address] Mundo Dao M.D. [id number] UrinalysisOrdered By: Chrystal li on 06-20-2024 Bacteria Auto Ql (U) None Seen None Se en /hpf [facility] Bilirubin Ql (U) Negative Negative [facility] th Clarity Refractometry automated (U) Clear Clear [facility] Color (U) Yellow Colorless, Yellow [facility] Glucose Auto test strip (U) [Mass/Vol] Negative Negative, >=1000 mg/dL [facility] Hemoglobin Auto test strip Ql (U) Negative Negative [facility] Interpretation and review of laboratory results Abnormal [facility] Ketones (U) [Mass/Vol] 20 mg/dL Abnormal Negative [facility] [place] Leukocyte esterase Auto test strip Ql (U) Negative Negative [facility] Mucus Auto (Urine sed) [#/Area] Rare None Seen, Rare /lpf [facility] Nitrite Auto test strip Ql (U) Negative Negative [facility] pH (U) 5.5 [pH] 5.0 - 7.0 [facility] Protein (U) [Mass/Vol] Negative Negat danial mg/dL [facility] RBC Auto (Urine sed) [#/Area] 3 [facility] Specific gravity (U) [Rel density] High 1.005 - 1.025 [facility] Urobilinogen (U) [Mass/Vol] mg/dL NINF - 2.0 mg/dL [facility] WBC Auto (Urine sed) [#/Area] 1 [facility] XR ABDOMEN /KUB/FLAT PLATE/1 VIEWon 06-20-2024 XR ABDOMEN /KUB/FLAT PLATE/1 VIEW EXAMINATION: XR ABDOMEN /KUB/FLAT PLATE/1 VIEW; XR CHEST PA/AP 06/20/2024 10:47 AM HISTORY: ORDERING SYSTEM PROVIDED HISTORY: displaced PEG tube, concern for gastric perforation, TECHNOLOGIST PROVIDED HISTORY: Illness/Other Reason for exam: displaced PEG tube, concern for gastric perforation Cancer History: u Surgery, RadiationHistory: u Encounter Type: Initial Additional signs and symptoms: n ORDERING SYSTEM PROVIDED DIAGNOSIS CODES: COMPARISON: None. FINDINGS: Upright and supine frontal views of the abdomen and pelvis were obtained. Upright frontal view of the chest. The stomach is distended with gas. There are also multiple gas-filled loops of large and small bowel. On supine view there is a Rigler's sign in the left lower quadrant and on upright view there does appear to be some air underneath the diaphragm as well as Rigler's sign outlying the transverse colon. No suspicious calcifications project over the abdomen or pelvis. There is atelectasis in the bilateral lung bases. Cardiac silhouette is unremarkable in size. No pneumothorax. No sizable pleural effusion. IMPRESSION: 1. There are radiographic findings suggestive of free intraperitoneal air. 2. Stomach and bowel is distended with gas. 3. Mild atelectasis in the lung bases. Critical results were called by Dr. Twila Malave to Dr. LEYDA ORNELAS, GROUND HOST/HOSTESS on 06/20/2024 at 11:38. [employer] Workstation ID: [id number] Dictated by: TWILA MALAVE on TueJun 20, 2024 11:38:24 AM EST Transcribed by: SANTI LEMA on TueJun 20, 2024 11:40:55 AM EST Finalized by: TWILA MALAVE on TueJun 20, 2024 11:55:07 AM EST Normal [facility] Comment on above: Order Comment: Injur y/Trauma or Illness?:Illness/Other How long have you had these symptoms (acute/chronic)?:Acute Reason for exam?:displaced PEG tube, concern for gastric perforation History of cancer?:u Surgeries, chemotherapy, or radiation?:u Type of Exam?:Initial Additional signs and symptoms?:n XR CHEST PA/APon 06-20-2024 XR CHEST PA/AP EXAMINATION: XR ABDOMEN /KUB/FLAT PLATE/1 VIEW; XR CHEST PA/AP 06/20/2024 10:47 AM HISTORY: ORDERING SYSTEM PROVIDED HISTORY: displaced PEG tube, concern for gastric perforation, TECHNOLOGIST PROVIDED HISTORY: Illness/Other Reason for exam: displaced PEG tube, concern for gastric perforation Cancer History: u Surgery, RadiationHistory: u Encounter Type: Initial Additional signs and symptoms: n ORDERING SYSTEM PROVIDED DIAGNOSIS CODES: COMPARISON: None. FINDINGS: Upright and supine frontal views of the abdomen and pelvis were obtained. Upright frontal view of the chest. The stomach is distended with gas. There are also multiple gas-filled loops of large and small bowel. On supine view there is a Rigler's sign in the left lower quadrant and on upright view there does appear to be some air underneath the diaphragm as well as Rigler's sign outlying the transverse colon. No suspicious calcifications project over the abdomen or pelvis. There is atelectasis in the bilateral lung bases. Cardiac silhouette is unremarkable in size. No pneumothorax. No sizable pleural effusion. IMPRESSION: 1. There are radiographic findings suggestive of free intraperitoneal air. 2. Stomach and bowel is distended with gas. 3. Mild atelectasis in the lung bases. Critical results were called by Dr. Twila Malave to Dr. LEYDA ORNELAS, GROUND HOST/HOSTESS on 06/20/2024 at 11:38. [employer] Workstation ID: [id number] Dictated by: TWILA MALAVE on TueJun 20, 2024 11:38:24 AM EST Transcribed by: SANTI LEMA on TueJun 20, 2024 11:40:55 AM EST Finalized by: TWILA MALAVE on TueJun 20, 2024 11:55:07 AM EST Normal [facility] Comment on above: Order Comment: Injur y/Trauma or Illness?:Illness/OtherHow long have you had these symptoms (acute/chronic)?:AcuteReason for exam?:hypoxiaHistory of cancer?:uSurgeries, chemotherapy, or radiation?:uType of Exam?:InitialAdditional signs and symptoms?:n XR Chest PA and Abdomen APon 06-20-2024 Radiology Study observation (narrative) [facility] XR Chest View and Abdomen [place] and [place] 06-20-2024 Radiology Study observation (narrative) [facility] XR ABDOMEN 1 VIEWon 06-19-20 24 XR ABDOMEN 1 VIEW Interpreted By: Mandi Ortiz, STUDY: XR ABDOMEN 1 VIEW; 06/19/2024 10:25 pm INDICATION: Signs/Symptoms:G Tube placement. COMPARISON: None. ACCESSION NUMBER(S): [id number] ORDERING CLINICIAN: TWILA SANTOS FINDINGS: Bilateral upper quadrants are excluded from the field of view thereby limiting evaluation. A gastrostomy tube overlies the left mid abdomen. Injection of contrast via gastrostomy tube outlines multiple gaseous distended loops of bowel concerning for contrast extravasation/G-tube malposition. There multiple gaseous distended loops of small and large bowel. These findings could be on the basis of recent instrumentation/EGD. Limited evaluation of pneumoperitoneum. Mild degenerative changes of the spine. IMPRESSION: 1. A gastrostomy tube overlies the left mid abdomen. Injection of contrast via gastrostomy tube outlines multiple gaseous distended loops of bowel concerning for contrast extravasation/G-tube malposition. 2. There multiple gaseous distended loops of small and large bowel. These findings could be on the basis of recent instrumentation/EGD versus developing ileus. Attention on continued follow-up is advised. MACRO: Mandi Ortiz discussed the significance and urgency of this critical finding by telephone with TWILA SANTOS on 06/19/2024 at 10:54 pm. (-RCF-) Findings: See findings. Signed by: Mandi Ortiz 06/19/2024 10:54 PM Dictation workstation: [id number] [facility] XR Abdomen Single viewon 1. A gastrostomy tube overlies the left mid abdomen. Injection of contrast via gastrostomy tube outlines multiple gaseous distended loops of bowel concerning for contrast extravasation/G-tube malposition. 2. There multiple gaseous distended loops of small and large bowel. These findings could be on the basis of recent instrumentation/EGD versus developing ileus. Attention on continued follow-up is advised. MACRO: Mandi Ortiz discussed the significance and urgency of this critical finding by telephone with TWILA SANTOS on 06/19/2024 at 10:54 pm. (-RCF-) Findings: See findings. Signed by: Mandi Ortiz 06/19/2024 10:54 PM Dictation workstation: [id number] [facility]ODAL Interpreted By: Mandi Ortiz, STUDY: XR ABDOMEN 1 VIEW; 06/19/2024 10:25 pm INDICATION: Signs/Symptoms:G Tube placement. COMPARISON: None. ACCESSION NUMBER(S): [id number] ORDERING CLINICIAN: TWILA SANTOS FINDINGS: Bilateral upper quadrants are excluded from the field of view thereby limiting evaluation. A gastrostomy tube overlies the left mid abdomen. Injection of contrast via gastrostomy tube outlines multiple gaseous distended loops of bowel concerning for contrast extravasation/G-tube malposition. There multiple gaseous distended loops of small and large bowel. These findings could be on the basis of recent instrumentation/EGD. Limited evaluation of pneumoperitoneum. Mild degenerative changes of the spine. MMODAL Mandi Ortiz MD - 06/19/2024 Interpreted By: Mandi Ortiz, STUDY: XR ABDOMEN 1 VIEW; 06/19/2024 10:25 pm INDICATION: Signs/Symptoms:G Tube placement. COMPARISON: None. ACCESSION NUMBER(S): [id number] ORDERING CLINICIAN: TWILA SANTOS FINDINGS: Bilateral upper quadrants are excluded from the field of view thereby limiting evaluation. A gastrostomy tube overlies the left mid abdomen. Injection of contrast via gastrostomy tube outlines multiple gaseous distended loops of bowel concerning for contrast extravasation/G-tube malposition. There multiple gaseous distended loops of small and large bowel. These findings could be on the basis of recent instrumentation/EGD. Limited evaluation of pneumoperitoneum. Mild degenerative changes of the spine. IMPRESSION: 1. A gastrostomy tube overlies the left mid abdomen. Injection of contrast via gastrostomy tube outlines multiple gaseous distended loops of bowel concerning for contrast extravasation/G-tube malposition. 2. There multiple gaseous distended loops of small and large bowel. These findings could be on the basis of recent instrumentation/EGD versus developing ileus. Attention on continued follow-up is advised. MACRO: Mandi Ortiz discussed the significance and urgency of this critical finding by telephone with TWILA SANTOS on 06/19/2024 at 10:54 pm. (-RCF-) Findings: See findings. Signed by: Mandi Ortiz 06/19/2024 10:54 PM Dictation workstation: [id number] [facility] Work Phone: Radiology Study observation (narrative) [facility] Work Phone: XR Abdomen Single viewOrdere d By: Mandi Ortiz on 06-19-2024 [facility] Work Phone: EGDon 06-18-2024 Esophagogastroduodenoscop y Table formatting from the original result was not included. Impression PEG tube placed in the antrum Mild erythematous mucosa in the prepyloric region, consistent with gastritis Findings A Bard PEG tube measuring 20 Fr was placed in the antrum using a deformable internal bolster via the pull technique after the site was identified via transillumination, visualized indentation and needle passed through abdominal wall; scope reinserted and tube rotated freely to confirm placement Mild, localized erythematous mucosa in the prepyloric region, consistent with gastritis Recommendation Follow up with me in clinic May begin using PEG tube and 8 hours. Will arrange nutritional service consultation at [facility] for type and amount of tube feed to be used. Indication Dysphagia, oropharyngeal phase Staff Staff Role No Staff Documented Medications See Anesthesia Record. Preprocedure A history and physical has been performed, and patient medication allergies have been reviewed. The patient's tolerance of previous anesthesia has been reviewed. The risks and benefits of the procedure and the sedation options and risks were discussed with the patient and patient's caregivers . All questions were answered and informed consent obtained. Details of the Procedure The patient underwent general anesthesia, which was administered by an anesthesia professional. The patient's blood pressure, ECG, ETCO2, heart rate, level of consciousness, respirations and oxygen were monitored throughout the procedure. The scope was introduced through the mouth and advanced to the second part of the duodenum. Retroflexion was performed in the cardia. Prior to the procedure, the patient's H. Pylori status was unknown. The patient experienced no blood loss. The procedure was moderately difficult due to difficult intubation. The patient tolerated the procedure well. There were no apparent adverse events. Events Procedure Events Event Event Time ENDO SCOPE IN TIME 06/18/2024 7:37 AM ENDO SCOPE OUT TIME 06/18/2024 7:42 AM Specimens No specimens collected Procedure Location [facility] [place] [address] [place] [id number] Referring Provider Bakari Mitchell DO Procedure Provider Bakari Mitchell DO [facility] Comment on above: Order Comment: Jun 04 EGD Study observation Narrat isaiah 06-18-2024 Table formatting from the original result was not included. Impression PEG tube placed in the antrum Mild erythematous mucosa in the prepyloric region, consistent with gastritis Findings A Bard PEG tube measuring 20 Fr was placed in the antrum using a deformable internal bolster via the pull technique after the site was identified via transillumination, visualized indentation and needle passed through abdominal wall; scope reinserted and tube rotated freely to confirm placement Mild, localized erythematous mucosa in the prepyloric region, consistent with gastritis Recommendation Follow up with me in clinic May begin using PEG tube and 8 hours. Will arrange nutritional service consultation at [facility] for type and amount of tube feed to be used. Indication Dysphagia, oropharyngeal phase Staff Staff Role No Staff Documented Medications See Anesthesia Record. Preprocedure A history and physical has been performed, and patient medication allergies have been reviewed. The patient's tolerance of previous anesthesia has been reviewed. The risks and benefits of the procedure and the sedation options and risks were discussed with the patient and patient's caregivers . All questions were answered and informed consent obtained. Details of the Procedure The patient underwent general anesthesia, which was administered by an anesthesia professional. The patient's blood pressure, ECG, ETCO2, heart rate, level of consciousness, respirations and oxygen were monitored throughout the procedure. The scope was introduced through the mouth and advanced to the second part of the duodenum. Retroflexion was performed in the cardia. Prior to the procedure, the patient's H. Pylori status was unknown. The patient experienced no blood loss. The procedure was moderately difficult due to difficult intubation. The patient tolerated the procedure well. There were no apparent adverse events. Events Procedure Events Event Event Time ENDO SCOPE IN TIME 06/18/2024 7:37 AM ENDO SCOPE OUT TIME 06/18/2024 7:42 AM Specimens No specimens collected Procedure Location [facility] [place] [address] [place] [id number] Referring Provider Bakari Mitchell DO Procedure Provider Bakari Mitchell DO [facility] Work Phone: [facility] Work Phone: Radiology Study observation (narrative) [facility] Work Phone: [place] MODIFIED BARIUM SWALLOW S Jarrell 03-30-2024 [place] MODIFIED BARIUM SWALLOW STUDY Interpreted By: Tor Rodriguez and Dargan Kate STUDY: [place] MODIFIED BARIUM SWALLOW STUDY;; 03/30/2024 8:56 am INDICATION: Signs/Symptoms:Aspir ation, underlying cerebral palsy. 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 ACCESSION NUMBER(S): [id number] ORDERING CLINICIAN: BAKARI MITCHELL TECHNIQUE: Modified Barium Swallow Study completed. Informed verbal consent obtained prior to completion of exam. Trials of thin, nectar/mildly thick liquid, honey/moderately thick liquid, and puree were given. SHRIMP HEADER: Mitzy Araiza, [facility]SHRIMP HEAD[facility] Contact info: [employer] secure chat SPEECH FINDINGS: Reason for Referral: Patient was referred by GI to assess swallow function and possible need for PEG tube placement following pulmonary aspiration. Per caregiver, patient is demonstrating increased coughing with all meals. He is exhibited more difficulty with solids than liquids and has lost a significant amount of weight over the last year. Additionally, he has had 2 instances of gagging and emesis related to these coughing episodes. 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, seizures, weight loss, intellectual disabilities, high myopia, multiple deficits of retina Respiratory Status: Room air Current diet: Pureed (IDDSI level 4) and Mildly thickened liquids (nectar) (IDDSI level 2) Pain: Pain Scale: PAINAD Breathin - Normal Negative Vocalizations: 0 - None Facial Expression: 0 - Smiling or inexpressive Body Language: 1 - Tense, distressed pacing/fidgeting Consolability: 1 - Distracted or reassured by voice/touch PAINAD Score: 2 (Ranges are based on the standard 0-10 scale of pain, with 0 meaning "no pain" and 10 meaning "severe pain") Fall Risk: High fall risk - wheelchair bound FINAL SPEECH RECOMMENDATIONS DIET Solids: Pureed (IDDSI level 4) Liquids: Moderately thickened liquids (honey) (IDDSI level 3) Based on the results of the MBSS, the above diet is recommended with the implementation of the following safe swallow strategies: STRATEGIES: - Small bites - Small, single sips - Alternate consistencies - Upright for all PO intake - Swallow 2-3 times per bite/sip - Liquids from spoon only - Limit distractions - Slow rate Plan: SHRIMP HEADER Plan: No treatment needs identified at this time - patient unable to participate in dysphagia treatment/exercises d/t cognitive deficits - diet tolerance monitoring to continue to be conducted by halfway staff as appropriate Discussed POC: Caregiver Discussed Risks/Benefits: Yes Patient/Caregiver Agreeable: Yes Education Provided: Results and recommendations per MBSS. Verbal understanding and agreement given. Mechanics of the Swallow Summary: ORAL PHASE: Lip Closure - Escape progressing to mid-chin Tongue Control During Bolus Hold - Posterior escape of greater than half of the bolus Bolus prep/mastication - Mastication not assessed Bolus transport/lingual motion - Repetitive/disorgani zed tongue motion (tongue pumping) Oral residue - Residue collection on oral structure PHARYNGEAL PHASE: Initiation of pharyngeal swallow - Collection of bolus at the level of the pyriform sinus Soft palate elevation - Escape to nasopharynx Laryngeal elevation - Complete superior movement of thyroid cartilage with contact of arytenoids to epiglottic petiole Anterior hyoid excursion - Complete anterior movement Epiglottic movement - Partial inversion Laryngeal vestibule closure - Incomplete - narrow column of air/contrast in laryngeal vestibule Pharyngeal stripping wave - Present, however, diminished Pharyngeal contraction (A/P view) - Not tested Pharyngoesophageal segment opening - Minimal distension/incomplet e duration with marked obstruction of flow of bolus Tongue base retraction - Wide column of contrast or air between tongue base and pharyngeal wall Pharyngeal residue - Majority of contrast within or on the pharyngeal structures ESOPHAGEAL PHASE: Esophageal clearance - Esophageal retention SHRIMP HEADER Impressions with Severity Rating: Pt presents with moderate to severe oropharyngeal dysphagia upon completion of modified barium swallow study this date. Swallowing physiology is detailed above. Impairments most impacting swallowing safety and efficiency include poor PES clearance and pharyngeal residue leading to post swallow penetration and aspiration and cognitive deficits leading to oral holding and decreased oral phase initiation. Patient demonstrated refusals to engage in trials of solids - holding bolus in oral cavity, refusing to swallow or spit. Patient demonstrated moderate to severe oral and pharyngeal residue that was reduced with numerous swallow (more content not included)... [facility] RF videography Hypopharynx a nd Esophagus Views for swallowing function W speech and W barium contrast Alli 03-30-2024 SILENT ASPIRATION WITH NECTAR THICK LIQUIDS. Very limited study due to patient's condition. MACRO: None Signed by: Tor Rodriguez 03/30/2024 3:19 PM Dictation workstation: [id number] [facility] MMODAL Interpreted By: Tor Rodriguez and Dargan Kate STUDY: [place] MODIFIED BARIUM SWALLOW STUDY;; 03/30/2024 8:56 am INDICATION: Signs/Symptoms:Aspir ation, underlying cerebral palsy. 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 ACCESSION NUMBER(S): [id number] ORDERING CLINICIAN: BAKARI MITCHELL TECHNIQUE: Modified Barium Swallow Study completed. Informed verbal consent obtained prior to completion of exam. Trials of thin, nectar/mildly thick liquid, honey/moderately thick liquid, and puree were given. SHRIMP HEADER: Mitzy Araiza, [facility]SHRIMP HEAD[facility] Contact info: [employer] chat SPEECH FINDINGS: Reason for Referral: Patient was referred by GI to assess swallow function and possible need for PEG tube placement following pulmonary aspiration. Per caregiver, patient is demonstrating increased coughing with all meals. He is exhibited more difficulty with solids than liquids and has lost a significant amount of weight over the last year. Additionally, he has had 2 instances of gagging and emesis related to these coughing episodes. 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, seizures, weight loss, intellectual disabilities, high myopia, multiple deficits of retina Respiratory Status: Room air Current diet: Pureed (IDDSI level 4) and Mildly thickened liquids (nectar) (IDDSI level 2) Pain: Pain Scale: PAINAD Breathin - Normal Negative Vocalizations: 0 - None Facial Expression: 0 - Smiling or inexpressive Body Language: 1 - Tense, distressed pacing/fidgeting Consolability: 1 - Distracted or reassured by voice/touch PAINAD Score: 2 (Ranges are based on the standard 0-10 scale of pain, with 0 meaning "no pain" and 10 meaning "severe pain") Fall Risk: High fall risk - wheelchair bound FINAL SPEECH RECOMMENDATIONS DIET Solids: Pureed (IDDSI level 4) Liquids: Moderately thickened liquids (honey) (IDDSI level 3) Based on the results of the MBSS, the above diet is recommended with the implementation of the following safe swallow strategies: STRATEGIES: - Small bites - Small, single sips - Alternate consistencies - Upright for all PO intake - Swallow 2-3 times per bite/sip - Liquids from spoon only - Limit distractions - Slow rate Plan: SHRIMP HEADER Plan: No treatment needs identified at this time - patient unable to participate in dysphagia treatment/exercises d/t cognitive deficits - diet tolerance monitoring to continue to be conducted by halfway staff as appropriate Discussed POC: Caregiver Discussed Risks/Benefits: Yes Patient/Caregiver Agreeable: Yes Education Provided: Results and recommendations per MBSS. Verbal understanding and agreement given. Mechanics of the Swallow Summary: ORAL PHASE: Lip Closure - Escape progressing to mid-chin Tongue Control During Bolus Hold - Posterior escape of greater than half of the bolus Bolus prep/mastication - Mastication not assessed Bolus transport/lingual motion - Repetitive/disorgani zed tongue motion (tongue pumping) Oral residue - Residue collection on oral structure PHARYNGEAL PHASE: Initiation of pharyngeal swallow - Collection of bolus at the level of the pyriform sinus Soft palate elevation - Escape to nasopharynx Laryngeal elevation - Complete superior movement of thyroid cartilage with contact of arytenoids to epiglottic petiole Anterior hyoid excursion - Complete anterior movement Epiglottic movement - Partial inversion Laryngeal vestibule closure - Incomplete - narrow column of air/contrast in laryngeal vestibule Pharyngeal stripping wave - Present, however, diminished Pharyngeal contraction (A/P view) - Not tested Pharyngoesophageal segment opening - Minimal distension/incomplet e duration with marked obstruction of flow of bolus Tongue base retraction - Wide column of contrast or air between tongue base and pharyngeal wall Pharyngeal residue - Majority of contrast within or on the pharyngeal structures ESOPHAGEAL PHASE: Esophageal clearance - Esophageal retention SHRIMP HEADER Impressions with Severity Rating: Pt presents with moderate to severe oropharyngeal dysphagia upon completion of modified barium swallow study this date. Swallowing physiology is detailed above. Impairments most impacting swallowing safety and efficiency include poor PES clearance and pharyngeal residue leading to post swallow penetration and aspiration and cognitive deficits leading to oral holding and decreased oral phase initiation. Patient demonstrated refusals to engage in trials of solids - holding bolus in oral cavity, refusing to swallow or spit. Patient demonstrated moderate to severe or (more content not included)... [facility] Tor Rodrgiuez MD - 03/30/2024 Interpreted By: Tor Rodriguez and Dargan Kate STUDY: [place] MODIFIED BARIUM SWALLOW STUDY;; 03/30/2024 8:56 am INDICATION: Signs/Symptoms:Aspir ation, underlying cerebral palsy. 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 ACCESSION NUMBER(S): [id number] ORDERING CLINICIAN: BAKARI MITCHELL TECHNIQUE: Modified Barium Swallow Study completed. Informed verbal consent obtained prior to completion of exam. Trials of thin, nectar/mildly thick liquid, honey/moderately thick liquid, and puree were given. SHRIMP HEADER: Mitzy Araiza, [facility]SHRIMP HEAD[facility] Contact info: [employer] secure chat SPEECH FINDINGS: Reason for Referral: Patient was referred by GI to assess swallow function and possible need for PEG tube placement following pulmonary aspiration. Per caregiver, patient is demonstrating increased coughing with all meals. He is exhibited more difficulty with solids than liquids and has lost a significant amount of weight over the last year. Additionally, he has had 2 instances of gagging and emesis related to these coughing episodes. 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, seizures, weight loss, intellectual disabilities, high myopia, multiple deficits of retina Respiratory Status: Room air Current diet: Pureed (IDDSI level 4) and Mildly thickened liquids (nectar) (IDDSI level 2) Pain: Pain Scale: PAINAD Breathin - Normal Negative Vocalizations: 0 - None Facial Expression: 0 - Smiling or inexpressive Body Language: 1 - Tense, distressed pacing/fidgeting Consolability: 1 - Distracted or reassured by voice/touch PAINAD Score: 2 (Ranges are based on the standard 0-10 scale of pain, with 0 meaning "no pain" and 10 meaning "severe pain") Fall Risk: High fall risk - wheelchair bound FINAL SPEECH RECOMMENDATIONS DIET Solids: Pureed (IDDSI level 4) Liquids: Moderately thickened liquids (honey) (IDDSI level 3) Based on the results of the MBSS, the above diet is recommended with the implementation of the following safe swallow strategies: STRATEGIES: - Small bites - Small, single sips - Alternate consistencies - Upright for all PO intake - Swallow 2-3 times per bite/sip - Liquids from spoon only - Limit distractions - Slow rate Plan: SHRIMP HEADER Plan: No treatment needs identified at this time - patient unable to participate in dysphagia treatment/exercises d/t cognitive deficits - diet tolerance monitoring to continue to be conducted by halfway staff as appropriate Discussed POC: Caregiver Discussed Risks/Benefits: Yes Patient/Caregiver Agreeable: Yes Education Provided: Results and recommendations per MBSS. Verbal understanding and agreement given. Mechanics of the Swallow Summary: ORAL PHASE: Lip Closure - Escape progressing to mid-chin Tongue Control During Bolus Hold - Posterior escape of greater than half of the bolus Bolus prep/mastication - Mastication not assessed Bolus transport/lingual motion - Repetitive/disorgani zed tongue motion (tongue pumping) Oral residue - Residue collection on oral structure PHARYNGEAL PHASE: Initiation of pharyngeal swallow - Collection of bolus at the level of the pyriform sinus Soft palate elevation - Escape to nasopharynx Laryngeal elevation - Complete superior movement of thyroid cartilage with contact of arytenoids to epiglottic petiole Anterior hyoid excursion - Complete anterior movement Epiglottic movement - Partial inversion Laryngeal vestibule closure - Incomplete - narrow column of air/contrast in laryngeal vestibule Pharyngeal stripping wave - Present, however, diminished Pharyngeal contraction (A/P view) - Not tested Pharyngoesophageal segment opening - Minimal distension/incomplet e duration with marked obstruction of flow of bolus Tongue base retraction - Wide column of contrast or air between tongue base and pharyngeal wall Pharyngeal residue - Majority of contrast within or on the pharyngeal structures ESOPHAGEAL PHASE: Esophageal clearance - Esophageal retention SHRIMP HEADER Impressions with Severity Rating: Pt presents with moderate to severe oropharyngeal dysphagia upon completion of modified barium swallow study this date. Swallowing physiology is detailed above. Impairments most impacting swallowing safety and efficiency include poor PES clearance and pharyngeal residue leading to post swallow penetration and aspiration and cognitive deficits leading to oral holding and decreased oral phase initiation. Patient demonstrated refusals to engage in trials of solids - holding bolus in oral cavity, refusing to swallow or spit. Patient (more content not included)... [facility] Work Phone: Radiology Study observation (narrative) [facility] Work Phone: RF videography Hypopharynx a nd Esophagus Views for swallowing function W speech and W barium contrast POOrdered By: Tor Rodriguez on 03-30-2024 [facility] Work Phone: XR CHEST 2 VIEWSon XR CHEST 2 VIEWS Interpreted By: Candice Bridges, STUDY: XR CHEST 2 VIEWS 02/14/2024 11:54 am INDICATION: Signs/Symptoms:cough , fever COMPARISON: 12/21/2023 ACCESSION NUMBER(S): [id number] ORDERING CLINICIAN: MAY HAINES TECHNIQUE: AP erect and lateral views of the chest FINDINGS: Cardiac size is difficult to accurately assess due to the AP projection and low lung volumes. Crowding of the bronchovascular markings is seen as a result of the low lung volumes. There is some linear atelectasis at the left lung base. No pleural abnormality is observed. IMPRESSION: Low lung volumes with crowding of bronchovascular markings. Left basilar linear atelectasis. Signed by: Candice Bridges 02/15/2024 8:35 PM Dictation workstation: [id number] Normal [facility] Comprehensive metabolic 2000 panelon 02-03-2024 Albumin BCP dye [Mass/Vol] 3.8 g/dL Normal 3.4-5.0 [facility] Comment on above: Performed By: #### 2 4323-8 #### BRISENO ROSITA ([id number]) [facility] ([facility]) [address] [place] [address] ALP [Catalytic activity/Vol] 72 U/L Normal 33-120 [facility] Comment on above: Performed By: #### 2 4323-8 #### SUZANNA BECKER ([id number]) [facility] ([facility]) [address] [place] [address] 14153 ALT With P-5'-P [Catalytic activity/Vol] 17 U/L Normal 10-52 [facility] Comment on above: Result Comment: Reina ents treated with Sulfasalazine may generate falsely decreased results for ALT. Performed By: #### 2 432-8 #### SUZANNA BECKER ([id number]) [facility] ([facility]) [address] [place] [address] [phone] Anion gap [Moles/Vol] 10 mmol/L Normal 10-20 [facility] Comment on above: Performed By: #### 2 432-8 #### SUZANNA BECKER ([id number]) [facility] ([facility]) [address] [place] [address] 89383 AST With P-5'-P [Catalytic activity/Vol] 15 U/L Normal 9-39 [facility] Comment on above: Performed By: #### 2 432-8 #### SUZANNA BECKER ([id number]) [facility] ([facility]) [address] [place] [address] 31482 Bilirubin [Mass/Vol] 0.4 mg/dL Normal 0.0-1.2 [facility] Comment on above: Performed By: #### 2 432-8 #### SUZANNA BECKER ([id number]) [facility] ([facility]) [address] [place] [address] 66717 Calcium [Mass/Vol] 8.6 mg/dL Normal 8.6-10.3 [facility] Comment on above: Performed By: #### 2 432-8 #### SUZANNA BECKER ([id number]) [facility] ([facility]) [address] [place] [address] 86105 Chloride [Moles/Vol] 105 mmol/L Normal 98-107 [facility] Comment on above: Performed By: #### 2 432-8 #### SUZANNA BECKER ([id number]) [facility] ([facility]) [address] [place] [address] 08845 CO2 [Moles/Vol] 28 mmol/L Normal 21-32 [facility] Comment on above: Performed By: #### 2 4323-8 #### SUZANNA BECKER ([id number]) [facility] ([facility]) [address] [place] [address] 29720 Creatinine [Mass/Vol] 0.41 mg/dL Low 0.50-1.30 [facility] Comment on above: Performed By: #### 2 4323-8 #### SUZANNA BECKER ([id number]) [facility] ([facility]) [address] [place] [address] 96670 GFR/1.73 sq M.predicted MDRD (S/P/Bld) [Vol rate/Area] mL/min/{1.73_m2} Normal >60 [facility] Comment on above: Result Comment: Calc ulations of estimated GFR are performed using the 2020 CKD-EPI Study Refit equation without the race variable for the IDMS-Traceable creatinine methods. https://jasn.asnjournals.org/content//ASN.20 52591932 Performed By: #### 2 4323-8 #### SUZANNA BECKER ([id number]) [facility]) [address] [place] [address]13 Glucose [Mass/Vol] 75 mg/dL Normal 74-99 [facility] Comment on above: Performed By: #### 2 4323-8 #### SUZANNA BECKER ([id number]) [facility]) [address] [place] [address] 15500 Potassium [Moles/Vol] 4.0 mmol/L Normal 3.5-5.3 [facility] Comment on above: Performed By: #### 2 4323-8 #### SUZANNA BECKER ([id number]) [facility]) [address] [place] [address] 80152 Protein [Mass/Vol] 6.2 g/dL Low 6.4-8.2 [facility] Comment on above: Performed By: #### 2 4323-8 #### SUZANNA BECKER ([id number]) [facility]) [address] [place] [address] Sodium [Moles/Vol] 139 mmol/L Normal 136-145 [facility] Comment on above: Performed By: #### 2 4323-8 #### SUZANNA BECKER ([id number]) [facility]) [address] [place] [address] Urea nitrogen [Mass/Vol] 11 mg/dL Normal 6-23 [facility] Comment on above: Performed By: #### 2 4323-8 #### SUZANNA BECKER ([id number]) [facility]) [address] [place] [address] XR CHEST 2 VIEWSon 4 XR CHEST 2 VIEWS Interpreted By: Tor Rodriguez, STUDY: XR CHEST 2 VIEWS; 12/21/2023 11:20 am INDICATION: Signs/Symptoms:cough , high risk for aspiration pna. COMPARISON: None. ACCESSION NUMBER(S): [id number] ORDERING CLINICIAN: MAY HAINES FINDINGS: CHEST PA, LATERAL CARDIOMEDIASTINAL SILHOUETTE: Cardiomediastinal silhouette is normal in size and configuration. LUNGS: Low lung volumes. No definite consolidation. No pleural effusion. ABDOMEN: No remarkable upper abdominal findings. BONES: No acute osseous changes. IMPRESSION: 1. No evidence of acute cardiopulmonary process. 2. Low lung volumes. MACRO: None Signed by: Tor Rodriguez 12/21/2023 3:55 PM Dictation workstation: [id number] [facility] XR Chest 2 Viewson 4 1. No evidence of acute cardiopulmonary process. 2. Low lung volumes. MACRO: None Signed by: Tor Rodriguez 12/21/2023 3:55 PM Dictation workstation: [id number] [facility] Interpreted By: Tor Rodriguez, STUDY: XR CHEST 2 VIEWS; 12/21/2023 11:20 am INDICATION: Signs/Symptoms:cough , high risk for aspiration pna. COMPARISON: None. ACCESSION NUMBER(S): [id number] ORDERING CLINICIAN: MAY HAINES FINDINGS: CHEST PA, LATERAL CARDIOMEDIASTINAL SILHOUETTE: Cardiomediastinal silhouette is normal in size and configuration. LUNGS: Low lung volumes. No definite consolidation. No pleural effusion. ABDOMEN: No remarkable upper abdominal findings. BONES: No acute osseous changes. MMODAL Tor Rodriguez MD - 12/21/2023 Interpreted By: Tro Rodriguez, STUDY: XR CHEST 2 VIEWS; 12/21/2023 11:20 am INDICATION: Signs/Symptoms:cough , high risk for aspiration pna. COMPARISON: None. ACCESSION NUMBER(S): [id number] ORDERING CLINICIAN: MAY HAINES FINDINGS: CHEST PA, LATERAL CARDIOMEDIASTINAL SILHOUETTE: Cardiomediastinal silhouette is normal in size and configuration. LUNGS: Low lung volumes. No definite consolidation. No pleural effusion. ABDOMEN: No remarkable upper abdominal findings. BONES: No acute osseous changes. IMPRESSION: 1. No evidence of acute cardiopulmonary process. 2. Low lung volumes. MACRO: None Signed by: Tor Rodriguez 12/21/2023 3:55 PM Dictation workstation: [id number] [facility] Work Phone: Radiology Study observation (narrative) [facility] Work Phone: XR Chest 2 ViewsOrdered By: Tor Rodriguez on 12-21-2023 [facility] Work Phone: Comprehensive metabolic 2000 panelon 12-13-2023 Albumin BCP dye [Mass/Vol] 3.9 g/dL Normal 3.4-5.0 [facility] [facility] Comment on above: Performed By: #### 2 4323-8 #### SUZANNA BECKER ([id number]) [facility] ([facility]) [address] [place] [address] ALP [Catalytic activity/Vol] 74 U/L Normal 33-120 [facility] Comment on above: Performed By: #### 2 4323-8 #### SUZANNA BECKER ([id number]) [facility] ([facility]) [address] [place] [address] ALT With P-5'-P [Catalytic activity/Vol] 15 U/L Normal 10-52 [facility] Comment on above: Result Comment: Reina ents treated with Sulfasalazine may generate falsely decreased results for ALT. Performed By: #### 2 4323-8 #### SUZANNA BECKER ([id number]) [facility] ([facility]) [address] [place] [address] Anion gap [Moles/Vol] 10 mmol/L Normal 10-20 [facility] Comment on above: Performed By: #### 2 4323-8 #### SZUANNA BECKER ([id number]) [facility] ([facility]) [address] [place] [address] AST With P-5'-P [Catalytic activity/Vol] 17 U/L Normal 9-39 [facility] Comment on above: Performed By: #### 2 4323-8 #### SUZANNA BECKER ([id number]) [facility] ([facility]) [address] [place] [address] Bilirubin [Mass/Vol] 0.4 mg/dL Normal 0.0-1.2 [facility] Comment on above: Performed By: #### 2 4323-8 #### SUZANNA BECKER ([id number]) [facility] ([facility]) [address] [place] [address] Calcium [Mass/Vol] 8.8 mg/dL Normal 8.6-10.3 [facility] Comment on above: Performed By: #### 2 4323-8 #### SUZANNA BECKER ([id number]) [facility] ([facility]) [address] [place] [address] Chloride [Moles/Vol] 106 mmol/L Normal 98-107 [facility] Comment on above: Performed By: #### 2 4323-8 #### SUZANNA BECKER ([id number]) [facility] ([facility]) [address] [place] [address] CO2 [Moles/Vol] 28 mmol/L Normal 21-32 [facility] Comment on above: Performed By: #### 2 4323-8 #### SUZANNA BECKER ([id number]) [facility] ([facility]) [address] [place] [address] Creatinine [Mass/Vol] 0.45 mg/dL Low 0.50-1.30 [facility] Comment on above: Performed By: #### 2 4323-8 #### SUZANNA BECKER ([id number]) [facility] ([facility]) [address] [place] [address] GFR/1.73 sq M.predicted MDRD (S/P/Bld) [Vol rate/Area] mL/min/{1.73_m2} Normal >60 [facility] Comment on above: Result Comment: Calc ulations of estimated GFR are performed using the 2020 CKD-EPI Study Refit equation without the race variable for the IDMS-Traceable creatinine methods. https://jasn.asnjournals.org/content/early//ASN.20 96512047 Performed By: #### 2 4323-8 #### SUZANNA BECKER ([id number]) [facility] ([facility]) [address] [place] [address] Glucose [Mass/Vol] 95 mg/dL Normal 74-99 [facility] Comment on above: Performed By: #### 2 4323-8 #### SUZANNA BECKER ([id number]) [facility] ([facility]) [address] [place] [address] Potassium [Moles/Vol] 4.3 mmol/L Normal 3.5-5.3 [facility] Comment on above: Performed By: #### 2 4323-8 #### SUZANNA BECKER ([id number]) [facility] ([facility]) [address] [place] [address] Protein [Mass/Vol] 6.6 g/dL Normal 6.4-8.2 [facility] Comment on above: Performed By: #### 2 4323-8 #### SUZANNA BECKER ([id number]) [facility] ([facility]) [facility] [place] [address] Sodium [Moles/Vol] 140 mmol/L Normal 136-145 [facility] Comment on above: Performed By: #### 2 4323-8 #### SUZANNA BECKER ([id number]) [facility] ([facility]) [address] [place] [address]35 Urea nitrogen [Mass/Vol] 16 mg/dL Normal 6-23 [facility] Comment on above: Performed By: #### 2 4323-8 #### SUZANNA BECKER ([id number]) [facility] ([facility]) [address] [place] [address]4041 Lipid 1996 panelon 4 Cholesterol [Mass/Vol] 110 mg/dL Normal 0-199 [facility] Comment on above: Result Comment: Age Desirable Borderline High High 0-19 Y 0 - 169 170 - 199 >/= 200 20-24 Y 0 - 189 190 - 224 >/= 225 >24 Y 0 - 199 200 - 239 >/= 240 All ranges are based on fasting samples. Specific therapeutic targets will vary based on patient-specific cardiac risk. Pediatric guidelines reference:Pediatrics 2011, 128(S5).Adult guidelines reference: NCEP ATPIII Guidelines,ROBI 2001, 258:2486-97 Venipuncture immediately after or during the administration of Metamizole may lead to falsely low results. Testing should be performed immediately prior to Metamizole dosing. Performed By: #### 2 4331-1 #### SUZANNA BECKER ([id number]) [facility] ([facility]) [address] [place] [address] Cholesterol in HDL [Mass/Vol] 52.0 mg/dL Normal [facility] Comment on above: Result Comment: Age Very Low Low Normal High 0-19 Y < 35 < 40 40-45 ---- 20-24 Y ---- < 40 >45 ---- >24 Y ---- < 40 40-60 >60 Performed By: #### 2 4331-1 #### SUZANNA BECKER ([id number]) [facility] ([facility]) [address] [place] [address] Cholesterol in LDL [Mass/Vol] 37 mg/dL Normal <=99 [facility] Comment on above: Result Comment: Near Borderline AGE Desirable Optimal High High Very High 0-19 Y 0 - 109 --- 110-129 >/= 130 ---- 20-24 Y 0 - 119 --- 120-159 >/= 160 ---- >24 Y 0 - 99 100-129 130-159 160-189 >/=190 Performed By: #### 2 4331-1 #### SUZANNA BECKER ([id number]) [facility] ([facility]) [address] [place] [address] Cholesterol in VLDL [Mass/Vol] 21 mg/dL Normal 0-40 [facility] Comment on above: Performed By: #### 2 4331-1 #### SUZANNA BECKER ([id number]) [facility] ([facility]) [address] [place] [address]80 CHOLESTEROL/HDL RATIO 2.1 Normal [facility] Comment on above: Result Comment: Ref Values Desirable < 3.4 High Risk > 5.0 Performed By: #### 2 4331-1 #### SUZANNA BECKER ([id number]) [facility] ([facility]) [address] [place] [address] 87095 NON HDL CHOLESTEROL 58 mg/dL Normal 0-[address] [facility] Comment on above: Result Comment: Age Desirable Borderline High High Very High 0-19 Y 0 - 119 120 - 144 >/= 145 >/= 160 20-24 Y 0 - 149 150 - 189 >/= 190 ---- >24 Y 30 mg/dL above LDL Cholesterol goal Performed By: #### 2 4331-1 #### SUZANNA BECKER ([id number]) [facility] ([facility]) [address] [place] [address] Triglyceride [Mass/Vol] 103 mg/dL Normal 0-149 [facility] Comment on above: Result Comment: Age Desirable Borderline High High Very High 0 D-90 D 19 - 174 ---- ---- ---- 91 D- 9 Y 0 - 74 75 - 99 >/= 100 ---- 10-19 Y 0 - 89 90 - 129 >/= 130 ---- 20-24 Y 0 - 114 115 - 149 >/= 150 ---- >24 Y 0 - 149 150 - 199 200- 499 >/= 500 Venipuncture immediately after or during the administration of Metamizole may lead to falsely low results. Testing should be performed immediately prior to Metamizole dosing. Performed By: #### 2 4331-1 #### SUZANNA BECKER ([id number]) [facility] ([facility]) [address] [place] [address] M. tuberculosis stim IFN-g a nd spot count panel (Bld)on 12-13-2023 Gamma interferon negative control spot count (Bld) [#] Passed [facility] Comment on above: Performed By: #### 7 4281-7 #### QUEST CHANTL ([id number]) [address] [place] M. tuberculosis stim IFN-g CFP10 Ag spot count (Bld) [#] 1 [facility] Comment on above: Performed By: #### 7 4281-7 #### QUEST CHANTL ([id number]) [address] [place] M. tuberculosis stim IFN-g ESAT-6 Ag spot count (Bld) [#] 4 [facility] Comment on above: Performed By: #### 7 4281-7 #### QUEST CHANTL ([id number]) [address] [place], [place] M. tuberculosis stim IFN-g Ql (Bld) [Interp] Negative Normal Negative [facility] Comment on above: Result Comment: A negative test result does not exclude the possibility of exposure to or infection with Mycobacterium tuberculosis (M. tuberculosis). Patients with recent exposure to TB infected individuals exhibiting a negative T-SPOT.TB result should be considered for retesting within 6 weeks or if other relevant clinical symptoms indicate. Results from T-SPOT.TB testing must be used in conjunction with each individual's epidemiological history, current medical status, and results of other diagnostic evaluations. The T-SPOT.TB test is qualitative and results are reported as positive, borderline, or negative, given that the test controls perform as expected. In line with the Centers for Disease Control and Prevention's 2010 recommendation to report quantitative measurements alongside the qualitative result, the laboratory provides spot counts for informational purposes only. The T-SPOT.TB test should not be interpreted as a quantitative test. Performed By: #### 7 4281-7 #### QUEST CHANTL ([id number]) [address] [place] Mitogen stimulated gamma interferon positive control spot count (Bld) [#] Passed Normal [facility] Comment on above: Result Comment: For additional information, please refer to http://education.UniYu/faq/BWR809 (This link is being provided for informational/ educational purposes only.) Performed By: #### 7 4281-7 #### QUEST CHANTL ([id number]) [address] [place] TSH WITH REFLEX TO FREE T4 I F ABNORMALon 12-13-2023 TSH Qn 1.23 m[IU]/L Normal 0.44-3.98 [facility] Comment on above: Order Comment: TSH t esting is performed using different testing methodology at [facility] than at other [facility]. Direct result comparisons should only be made within the same method. Performed By: #### T HYDS #### SUZANNA BECKER ([id number]) [facility] ([facility]) [address] [place] [address] Valproateon 12-13-2023 Valproate [Mass/Vol] 51 ug/mL Normal 50-100 [facility] Comment on above: Performed By: #### 4 086-5 #### SUZANNA BECKER ([id number]) [facility] ([facility]) [address] [place], [place] [address] GI COMP PHARYNGEAL SPEECH EV Manohar 02-18-2023 GI COMP PHARYNGEAL SPEECH EVAL Patient Name: ROME CASTILLO STUDY: GI COMP PHARYNGEAL SPEECH EVAL;; 02/18/2023 8:57 am INDICATION: DYSPHAGIA. R13.12 Dysphagia, oropharyngeal phase COMPARISON: None. ACCESSION NUMBER(S): [id number] ORDERING CLINICIAN: CRUZITO DOE TECHNIQUE: MBSS completed. Informed verbal consent obtained prior to completion of exam. Trials of nectar thick, honey thick, and purees given. SHRIMP HEADER: Mitzy Araiza MA, [facility]SHRIMP HEADER Phone/Pager: Kalyan Hdz SPEECH FINDINGS: Reason for referral: Caregiver reported significant increase in coughing with meals. Patient hx: Intellectual disabilities, cerebral palsy, dysphagia, multiple deficits of retina, high myopia Respiratory status: WFL Previous diet: Puree textures with mildly/nectar thick liquids; downgraded to puree textures and pudding thick liquids pending MBSS results FINAL SPEECH RECOMMENDATIONS Diet recommendations/feed ing strategies: Puree textures and moderately/honey thick liquids. Small bites/sips, slow rate, alternate liquids and solids, decrease distractions during consumption, adaptive sippy cup to regulate bolus flow for liquids Follow-up speech therapy recommended: No. Patient unable to follow cues and directives in order to participate in dysphagia tx Education provided: Yes. Diet recommendation, compensatory strategies, results of the study Mechanics of the swallow summary: *Oral phase: Moderate to severe impairment 1. Premature spillage to the pyriform sinuses for all consistencies 2. Poor bolus control 3. Moderate oral residue with all consistencies *Pharyngeal phase: Moderate to severe impairment 1. Decrease pharyngeal wall movement leading to insufficient UES opening 2. Moderate to severe pharyngeal residue in the vallecula, pharyngeal wall, and pyriform sinuses for all consistencies 3. Penetration of mildly/nectar thick liquids that clears 4. Signficant residue at the UES d/t insufficient opening, minimally cleared with multiple swallows *Esophageal phase: WFL 1. Unable to complete esophageal swallow d/t positioning SHRIMP HEADER impressions with severity rating: Moderate-severe oropharyngeal dysphagia Lattimore Thick Liquids (MBSS) Rosenbek's Penetration Aspiration Scale, Lattimore thick liquids (MBSS): 2. PENETRATION that CLEARS - contrast enter airway, above vocal cords, no residue Response to Pharyngeal Residue, Lattimore thick liquids (MBSS): unable to clear with multiple swallows Honey Thick Liquids (MBSS) Rosenbek's Penetration Aspiration Scale, Honey thick liquids (MBSS): 1. NO ASPIRATION & NO PENETRATION - no aspiration, contrast does not enter airway Response to Pharyngeal Residue, Honey thick liquids (MBSS): unable to clear with multiple swallows Purees (MBSS) Rosenbek's Penetration Aspiration Scale, Purees (MBSS): 1. NO ASPIRATION & NO PENETRATION - no aspiration, contrast does not enter airway Response to Pharyngeal Residue, Purees (MBSS): unable to clear with multiple swallows Speech Therapy section of this report signed by Mitzy Araiza MA, CCC-SHRIMP HEADER on 02/18/2023 at 10:47 am. RADIOLOGY FINDINGS: No definite anatomic abnormalities identified. Radiology section of this report signed by Dr. Johnson. IMPRESSION: As above MACRO: None Electronically signed by: RIKY JOHNSON MD Normal [facility] CBC AND DIFFERENTIALon 04-13 Basophils (Bld) [#/Vol] 0.00 10*3/uL Normal 0.00 - 0.1 0 [facility] Comment on above: Performed By: #### C BCDF #### [address] [address] Basophils/100 WBC (Bld) 0.9 % Normal 0.0 - 2.0 U [facility] Comment on above: Performed By: #### C BCDF #### [address] [address] Eosinophils (Bld) [#/Vol] 0.10 10*3/uL Normal 0.00 - 0 .70 [facility] Comment on above: Performed By: #### C BCDF #### [address] [address] Eosinophils/100 WBC (Bld) 1.2 % Normal 0.0 - 6.0 [facility] Comment on above: Performed By: #### C BCDF #### [address] [address] Erythrocyte distribution width (RBC) [Ratio] 12.7 % Normal 11.5 - 14.5 [facility] Comment on above: Performed By: #### C BCDF #### [address] [address] Hematocrit (Bld) [Volume fraction] 41.8 % Normal 41.0 - 52.0 [facility] Comment on above: Performed By: #### C BCDF #### [address] [address] Hemoglobin (Bld) [Mass/Vol] 13.9 g/dL Normal 13.5 - 17.5 [facility] Comment on above: Performed By: #### C BCDF #### [address] [address] Lymphocytes (Bld) [#/Vol] 1.70 10*3/uL Normal 1.20 - 4 .80 [facility] Comment on above: Performed By: #### C BCDF #### [address] [address] Lymphocytes/100 WBC (Bld) 33.4 % Normal 13.0 - 44. 0 [facility] Comment on above: Performed By: #### C BCDF #### [address] [address] MCHC (RBC) [Mass/Vol] 33.2 g/dL Normal 32.0 - 36.0 [facility] Comment on above: Performed By: #### C BCDF #### [address] [address] MCV (RBC) [Entitic vol] 92 fL Normal 80 - 100 [facility] Comment on above: Performed By: #### C BCDF #### [address] [address] Monocytes (Bld) [#/Vol] 0.40 10*3/uL Normal 0.10 - 1.0 0 [facility] Comment on above: Performed By: #### C BCDF #### [address] [address] Monocytes/100 WBC (Bld) 7.7 % Normal 2.0 - 10.0 [facility] Comment on above: Performed By: #### C BCDF #### [address] [address] Neutrophils (Bld) [#/Vol] 2.80 10*3/uL Normal 1.20 - 7 .70 [facility] Comment on above: Result Comment: Perc ent differential counts (%) should be interpreted in the context of the absolute cell counts (cells/L). Performed By: #### C BCDF #### [address] [address] Neutrophils/100 WBC (Bld) 56.8 % Normal 40.0 - 80. 0 [facility] Comment on above: Performed By: #### C BCDF #### [address] [address] NUCLEATED RBC 0.2 /100 WBC Normal [facility] [place] Comment on above: Performed By: #### C BCDF #### [address] [address] Platelets (Bld) [#/Vol] 183 10*3/uL Normal 150 - 450 [facility] Comment on above: Performed By: #### C BCDF #### [address] [address] RBC 4.54 x10E12/L Normal 4.50 - 5.90 [facility] Comment on above: Performed By: #### C BCDF #### [address] [address] WBC (Bld) [#/Vol] 5.0 10*3/uL Normal 4.4 - 11.3 [facility] Comment on above: Performed By: #### C BCDF #### [address] [address] COMPREHENSIVE PANELon 2021 Albumin [Mass/Vol] 3.7 g/dL Normal 3.4 - 5.0 [facility] Comment on above: Performed By: #### C MP #### [address] [address] ALP [Catalytic activity/Vol] 68 U/L Normal 33 - 120 [facility] Comment on above: Performed By: #### C MP #### [address] [address] ALT [Catalytic activity/Vol] 11 U/L Normal 10 - 52 [facility] Comment on above: Result Comment: Reina ents treated with Sulfasalazine may generate falsely decreased results for ALT. Performed By: #### C MP #### [address] [address] Anion gap [Moles/Vol] 13 mmol/L Normal 10 - 20 [facility] Comment on above: Performed By: #### C MP #### [address] [address] AST [Catalytic activity/Vol] 14 U/L Normal 9 - 39 [facility] Comment on above: Performed By: #### C MP #### [address] [address] Bilirubin [Mass/Vol] 0.4 mg/dL Normal 0.0 - 1.2 [facility] Comment on above: Performed By: #### C MP #### [address] [address] Calcium [Mass/Vol] 8.9 mg/dL Normal 8.6 - 10.3 [facility] Comment on above: Performed By: #### C MP #### [address] [address] Chloride [Moles/Vol] 109 mmol/L High 98 - 107 [facility] Comment on above: Performed By: #### C MP #### [address] [address] Creatinine [Mass/Vol] 0.49 mg/dL Low 0.50 - 1.30 [facility] Comment on above: Performed By: #### C MP #### [address] [address] eGFR MALE >90 Normal >90 [facility] Comment on above: Result Comment: CALC ULATIONS OF ESTIMATED GFR ARE PERFORMED USING THE 2020 CKD-EPI STUDY REFIT EQUATION WITHOUT THE RACE VARIABLE FOR THE IDMS-TRACEABLE CREATININE METHODS. https://jasn.asnjournals.org/content/early//ASN.20 05933552 Performed By: #### C MP #### [address] [address] Glucose [Mass/Vol] 86 mg/dL Normal 74 - 99 [facility] Comment on above: Performed By: #### C MP #### [address] [address] HCO3 (Bld) [Moles/Vol] 24 mmol/L Normal 21 - 32 [facility] Comment on above: Performed By: #### C MP #### [address] [address] Potassium [Moles/Vol] 4.0 mmol/L Normal 3.5 - 5.3 [facility] Comment on above: Performed By: #### C MP #### [address] [address] Protein [Mass/Vol] 7.0 g/dL Normal 6.4 - 8.2 [facility] Comment on above: Performed By: #### C MP #### [address] [address] Sodium [Moles/Vol] 142 mmol/L Normal 136 - 145 [facility] Comment on above: Performed By: #### C MP #### [address] [address] Urea nitrogen [Mass/Vol] 20 mg/dL Normal 6 - 23 [facility] Comment on above: Performed By: #### C MP #### [address] [address] LIPID PANEL (CORONARY RISK 2 )on 04-13-2022 Cholesterol [Mass/Vol] 128 mg/dL Normal 0 - 199 [facility] Comment on above: Result Comment: . AGE DESIRABLE BORDERLINE HIGH HIGH 0-19 Y 0 - 169 170 - 199 >/= 200 20-24 Y 0 - 189 190 - 224 >/= 225 >24 Y 0 - 199 200 - 239 >/= 240 All ranges are based on fasting samples. Specific therapeutic targets will vary based on patient-specific cardiac risk. . Pediatric guidelines reference:Pediatrics 2011, 128(S5). Adult guidelines reference: NCEP ATPIII Guidelines, ROBI 2001, 258:2486-97 . Venipuncture immediately after or during the administration of Metamizole may lead to falsely low results. Testing should be performed immediately prior to Metamizole dosing. Performed By: #### L IPID #### [address] [address] Cholesterol in HDL [Mass/Vol] 47.0 mg/dL Normal [facility] Comment on above: Result Comment: . AGE VERY LOW LOW NORMAL HIGH 0-19 Y < 35 < 40 40-45 ---- 20-24 Y ---- < 40 >45 ---- >24 Y ---- < 40 40-60 >60 . Performed By: #### L IPID #### [address] [address] Cholesterol in LDL [Mass/Vol] 69 mg/dL Normal 0 - 99 [facility] Comment on above: Result Comment: . NEAR BORD AGE DESIRABLE OPTIMAL HIGH HIGH VERY HIGH 0-19 Y 0 - 109 --- 110-129 >/= 130 ---- 20-24 Y 0 - 119 --- 120-159 >/= 160 ---- >24 Y 0 - 99 100-129 130-159 160-189 >/=190 . Performed By: #### L IPID #### [address] [address] Cholesterol in VLDL [Mass/Vol] 12 mg/dL Normal 0 - 40 [facility] Comment on above: Performed By: #### L IPID #### [address] [address] Cholesterol.total/Cholest antoinette in HDL [Mass ratio] 2.7 {ratio} Normal [facility] Comment on above: Result Comment: REF VALUES DESIRABLE < 3.4 HIGH RISK > 5.0 Performed By: #### L IPID #### [address] [address] Triglyceride [Mass/Vol] 58 mg/dL Normal 0 - 149 H [facility] Comment on above: Result Comment: . AGE DESIRABLE BORDERLINE HIGH HIGH VERY HIGH 0 D-90 D 19 - 174 ---- ---- ---- 91 D- 9 Y 0 - 74 75 - 99 >/= 100 ---- 10-19 Y 0 - 89 90 - 129 >/= 130 ---- 20-24 Y 0 - 114 115 - 149 >/= 150 ---- >24 Y 0 - 149 150 - 199 200- 499 >/= 500 . Venipuncture immediately after or during the administration of Metamizole may lead to falsely low results. Testing should be performed immediately prior to Metamizole dosing. Performed By: #### L IPID #### [address] [address] MAGNESIUMon 04-13-2022 Magnesium [Mass/Vol] 2.19 mg/dL Normal 1.60 - 2.40 [facility] Comment on above: Performed By: #### M G #### [address] [address] PROSTATE SPECIFIC AGon 04-13 Prostate specific Ag [Mass/Vol] 0.44 ng/mL Normal 0.00 - 4.00 [facility] Comment on above: Result Comment: The FDA requires that the method used for PSA assay be reported to the physician. Values obtained with different assay methods must not be used interchangeably. This test was performed at [facility] using the itsDapper PSA assay is a two-site immunoenzymatic sandwich assay. The assay is approved for measurement of prostate-specific antigen (PSA)in serum and may be used in conjunction with a digital rectal examination in men 50 years and older as an aid in detection of prostate cancer. 9-Dkrbv-undyitiqn inhibitors (e.g. Proscar, Finasteride, Avodart, Dutasteride and Romy) for the treatment of BPH have been shown to lower PSA levels by an average of 50% after 6 months of treatment. Performed By: #### P SA #### [address] [address] TSHon 04-13-2022 TSH Qn 1.29 m[IU]/L Normal 0.44 - 3.98 [facility] Comment on above: Result Comment: TSH testing is performed using different testing methodology at [facility] than at other [facility]. Direct result comparisons should only be made within the same method. Performed By: #### T SH2 #### [address] [address] VALPROIC ACIDon 04-13-2022 VALPROIC ACID 59 ug/mL Normal 50 - 100 [facility] Comment on above: Performed By: #### V ALPR #### [id number] [place] [address] CORONAVIRUS PCR - [facility] 04-07-2021 SARS-CoV-2 (COVID-19) RNA DALIA+probe Ql (Unsp spec) Negative Normal NORMAL: NEGATIVE [facility] Comment on above: Performed By: #### 2 [id number] #### [address] [address] SEND TO ? YES Normal [facility] Comment on above: Result Comment: RESU LTS FAXED TO INFECTION CONTROL. SARS-CoV-2 THIS TEST IS BEING USED UNDER THE FDA EUA PROCEDURE. THIS ASSAY HAS BEEN VALIDATED IN THE [facility] FOR USE WITH NASOPHARYNGEAL SPECIMENS IN [facility]ORAT[facility] TEST RESULTS SHOULD ALWAYS BE CONSIDERED IN THE CONTEXT OF CLINICAL OBSERVATIONS AND EPIDEMIOLOGICAL DATA IN MAKING FINAL DIAGNOSIS AND PATIENT MANAGEMENT DECISIONS. PATIENT MANAGEMENT SHOULD FOLLOW CURRENT CDC GUIDELINES. A POSITIVE TEST RESULT FOR COVID-19 INDICATES THAT RNA FROM SARS-CoV-2 WAS DETECTED, AND THE PATIENT IS INFECTED WITH THE VIRUS AND PRESUMED TO BE CONTAGIOUS. A NEGATIVE TEST RESULT FOR THIS TEST MEANS THAT SARS-CoV-2 RNA WAS NOT PRESENT IN THE SPECIMEN ABOVE THE LIMIT OF DETECTION. HOWEVER, A NEGATVIE RESULT DOES NOT RULE OUT COVID-19 AND SHOULD NOT BE USED THE SOLE BASIS FOR TREATMENT OR PATIENT MANAGEMENT DECISIONS. A NEGATIVE RESULT DOES NOT EXCLUDE THE POSSIBILITY OF COVID-19. WHEN DIAGNOSTIC TESTING IS NEGATIVE, THE POSSIBLILTY OF A FALSE NEGATIVE RESULT SHOULD BE CONSIDERED IN THE CONTEXT OF A PATIENT'S RECENT EXPOSURES AND THE PRESENCE OF CLINICAL SIGNS AND SYMPTOMS CONSISTENT WITH COVID-19. THE POSSIBILITY OF A FALSE NEGATIVE RESULT SHOULD ESPECIALLY BE CONSIDERED IF THE PATIENT'S RECENT EXPOSURES OR CLINICAL PRESENTATION INDICATE THAT COVID-19 IS LIKELY, AND DIAGNOSTIC TESTS FOR OTHER CAUSES OF ILLNESS (e.g., OTHER RESPIRATORY ILLNESS) ARE NEGATIVE. IF COVID-19 IS STILL SUSPECTED BASED ON EXPOSURE HISTORY TOGETHER WITH OTHER CLINICAL FINDINGS, RE-TESTED SHOULD BE CONSIDERED BY HEALTHCARE PROVIDERS IN CONSULTATION WITH PUBLIC HEALTH AUTHORITIES. Performed By: #### 2 [id number] #### [facility] [place],[address] [place], [place] [address] CBC AND ELECTRONIC DIFFon Basophils (Bld) [#/Vol] 0.05 10*3/uL Normal 0.00-0.09 [facility] Comment on above: Performed By: #### L [id number] #### U [facility] (DEFAULT) [address] [place] [address] Basophils/100 WBC (Bld) 0.8 % Normal [facility] Comment on above: Performed By: #### L [id number] #### [facility] (DEFAULT) [address] [place] [address] DIFF STATUS Electronic Differential Normal [facility] Comment on above: Performed By: #### L [id number] #### [facility] (DEFAULT) [address] [place] [address] Eosinophils (Bld) [#/Vol] 0.08 10*3/uL Normal 0.00-0.4 8 [facility] Comment on above: Performed By: #### L [id number] #### [facility] (DEFAULT) [address] [address] Eosinophils/100 WBC (Bld) 1.3 % Normal [facility] Comment on above: Performed By: #### L [id number] #### [facility] (DEFAULT) [address] [place] [address] Hematocrit (Bld) [Volume fraction] 42.1 % Normal 39.6-48.8 [facility] Comment on above: Performed By: #### L [id number] #### [facility] (DEFAULT) [address] [place] [address] Hemoglobin (Bld) [Mass/Vol] 14.0 g/dL Normal 13.4-16.8 [facility] Comment on above: Performed By: #### L [id number] #### [facility] (DEFAULT) [address] [address] Immature Grans % 0.3 % Normal [facility] Comment on above: Performed By: #### L [id number] #### [facility] (DEFAULT) [address] [address] Immature Grans Absolute <0.04 Normal <=0.08 [facility] Comment on above: Performed By: #### L [id number] #### [facility] (DEFAULT) [address] [place] [address] Lymphocytes (Bld) [#/Vol] 2.15 10*3/uL Normal 0.83-3.5 7 [facility] Comment on above: Performed By: #### L AB980 #### [facility] (DEFAULT) [address] [address] Lymphocytes/100 WBC (Bld) 34.8 % Normal [facility] Comment on above: Performed By: #### L [id number] #### [facility] (DEFAULT) [address] [place] [address] MCV (RBC) [Entitic vol] 91.9 fL Normal 79.0-94.5 [facility] Comment on above: Performed By: #### L AB980 #### [facility] (DEFAULT) [address] [address] Mean Cell Hgb 30.6 pg Normal 26.1-33.3 [facility] Comment on above: Performed By: #### L AB980 #### [facility] (DEFAULT) [address] [address] Mean Cell Hgb Conc 33.3 g/dL Normal 31.9-36.5 [facility] Comment on above: Performed By: #### L [id number] #### [facility] (DEFAULT) [address] [address] Monocytes (Bld) [#/Vol] 0.55 10*3/uL Normal 0.24-0.93 [facility] Comment on above: Performed By: #### L AB980 #### [facility] (DEFAULT) [address] [place] [address] Monocytes/100 WBC (Bld) 8.9 % Normal [facility] Comment on above: Performed By: #### L AB980 #### [facility] (DEFAULT) [address] [place] [address] Nucleated RBC 0.0 /100 WBC Normal <=0.2 [facility] Comment on above: Performed By: #### L [id number] #### [facility] (DEFAULT) [address] [place] [address] Platelet mean volume (Bld) [Entitic vol] 11.7 fL Normal 8.7-12.3 [facility] Comment on above: Performed By: #### L [id number] #### [facility] (DEFAULT) [address] [address] Platelets (Bld) [#/Vol] 188 10*3/uL Normal 146-337 [facility] Comment on above: Performed By: #### L [id number] #### [facility] (DEFAULT) [address] [place] [address] RBC (Bld) [#/Vol] 4.58 10*6/uL Normal 4.38-5.83 [facility] Comment on above: Performed By: #### L [id number] #### [facility] (DEFAULT) [address] [address] RBC Distribution 12.2 % Normal 10.9-14.3 [facility] Comment on above: Performed By: #### L AB980 #### [facility] (DEFAULT) [address] [address] Segs + Bands Auto 53.9 % Normal [facility] Comment on above: Performed By: #### L [id number] #### [facility] (DEFAULT) [address] [address] Segs + Bands,Absolute Auto 3.32 K/uL Normal 1.57-6.19 [facility] Comment on above: Performed By: #### L [id number] #### [facility] (DEFAULT) [address] [place] [address] WBC (Bld) [#/Vol] 6.17 10*3/uL Normal 3.73-10.10 [facility] Comment on above: Performed By: #### L [id number] #### [facility] (DEFAULT) [address] [place] [address] CHEM 7 (LYTES,BUN,CREA,GLUC) on 01-14-2021 Anion gap [Moles/Vol] 11 mmol/L Normal 7-17 [facility] Comment on above: Performed By: #### C HM7, HFP #### [facility] (DEFAULT) [address] [place] [address] Chloride [Moles/Vol] 106 mmol/L Normal 98-108 [facility] Comment on above: Performed By: #### C HM7, HFP #### [facility] (DEFAULT) [address] [place] [address] CO2 [Moles/Vol] 27 mmol/L Normal 22-30 [facility] Comment on above: Performed By: #### C HM7, HFP #### [facility] (DEFAULT) [address] [place] [address] Creatinine [Mass/Vol] 0.53 mg/dL Low 0.70-1.30 [facility] Comment on above: Performed By: #### C HM7, HFP #### [facility] (DEFAULT) [address] [place] [address] EST GFR, >=60 Normal >=60 [facility] Comment on above: Performed By: #### C HM7, HFP #### [facility] (DEFAULT) [address] [place] [address] EST GFR,Non >=60 Normal >=60 [facility] Comment on above: Performed By: #### C HM7, HFP #### [facility] (DEFAULT) [address] [place] [address] Glucose [Mass/Vol] 74 mg/dL Normal 70-99 [facility] Comment on above: Performed By: #### C HM7, HFP #### [facility] (DEFAULT) [address] [place] [address] Osmolality [Osmolality] 292 mosm/kg Normal 278-305 [facility] Comment on above: Performed By: #### C HM7, HFP #### [facility] (DEFAULT) [address] [place] [address] Potassium [Moles/Vol] 4.0 mmol/L Normal 3.5-5.0 [facility] Comment on above: Performed By: #### C HM7, HFP #### [facility] (DEFAULT) [address] [place] [address] Sodium [Moles/Vol] 140 mmol/L Normal 133-143 [facility] Comment on above: Performed By: #### C HM7, HFP #### [facility] (DEFAULT) [address] [place] [address] Urea nitrogen [Mass/Vol] 14 mg/dL Normal 7-22 [facility] Comment on above: Performed By: #### C HM7, HFP #### [facility] (DEFAULT) [address] [place] [address] Urea nitrogen/Creatinine [Mass ratio] 26 mg/mg Normal [facility] Comment on above: Performed By: #### C HM7, HFP #### [facility] (DEFAULT) [address] [place] [address] HEPATIC FUNCTION PANELon Albumin [Mass/Vol] 4.0 g/dL Normal 3.5-5.0 [facility] Comment on above: Performed By: #### C HM7, HFP #### [facility] (DEFAULT) [address] [place] [address] ALP [Catalytic activity/Vol] 64 U/L Normal 32-126 [facility] Comment on above: Performed By: #### C HM7, HFP #### [facility] (DEFAULT) [address] [place] [address]48 ALT [Catalytic activity/Vol] 9 U/L Low 10-52 [facility] Comment on above: Performed By: #### C HM7, HFP #### [facility] (DEFAULT) [address] [place] [address] AST [Catalytic activity/Vol] 15 U/L Normal 14-40 [facility] Comment on above: Performed By: #### C HM7, HFP #### [facility] (DEFAULT) [address] [place] [address]99 Bilirubin [Mass/Vol] 0.3 mg/dL Normal <1.5 [facility] Comment on above: Performed By: #### C HM7, HFP #### [facility] (DEFAULT) [address] [place] [address] Bilirubin.indirect [Mass/Vol] 0.1 mg/dL Normal <0.3 [facility] Comment on above: Performed By: #### C HM7, HFP #### [facility] (DEFAULT) [address] [place] [address] 28463 Protein [Mass/Vol] 7.0 g/dL Normal 6.4-8.3 [facility] Comment on above: Performed By: #### C HM7, HFP #### [facility] (DEFAULT) [address] [place] [address] Ammoniaon 04-20-2019 Ammonia (P) [Mass/Vol] 39 mcmol/L Normal 16-53 [facility] Comment on above: Performed By: #### 2 [id number] #### [employer] [address] [place] [address] Auto Diffon 04-20-2019 Basophils (Bld) [#/Vol] 0.0 E3/mcL Normal 0.0-0.2 [facility] Comment on above: Order Comment: Order Added by Discern Expert. Performed By: #### 2 [id number] #### [facility] [employer] [address] [place] [address] Basophils/100 WBC (Bld) 0.6 % Normal 0.0-2.0 [facility] Comment on above: Order Comment: Order Added by Discern Expert. Performed By: #### 2 [id number] #### [facility] [employer] [address] [place] [address] Eos Absolute 0.0 E3/mcL Normal 0.0-0.7 [facility] Comment on above: Order Comment: Order Added by Discern Expert. Performed By: #### 2 285329 #### [facility] [employer] [address] [place] [address] Eosinophils/100 WBC (Bld) 0.4 % Normal 0.0-11.0 [facility] Comment on above: Order Comment: Order Added by Discern Expert. Performed By: #### 2 [id number] #### [facility] [address] [place] [address] Lymphocytes (Bld) [#/Vol] 1.9 E3/mcL Normal 1.2-3.4 [facility] Comment on above: Order Comment: Order Added by Discern Expert. Performed By: #### 2 610172 #### [employer] [address] [place] [address] Lymphocytes/100 WBC (Bld) 28.8 % Normal 20.0-55.0 [facility] Comment on above: Order Comment: Order Added by Discern Expert. Performed By: #### 2 106910 #### [facility] [employer] [address] [place] [address] [place] Absolute 0.5 E3/mcL Normal 0.0-0.7 [facility] Comment on above: Order Comment: Order Added by Discern Expert. Performed By: #### 2 707366 #### [facility] [employer] [address] [place] [address] Monocytes/100 WBC (Bld) 7.5 % Normal 0.0-10.0 [facility] Comment on above: Order Comment: Order Added by Discern Expert. Performed By: #### 2 156784 #### [facility] [employer] [address] [place] [address] Neutro Absolute 4.1 E3/mcL Normal 1.4-6.5 [facility] Comment on above: Order Comment: Order Added by Discern Expert. Performed By: #### 2 610551 #### [employer] [address] [address] [place] [address] Neutro Auto 62.7 % Normal 37.0-75.0 [facility] Comment on above: Order Comment: Order Added by Discern Expert. Performed By: #### 2 [id number] #### [facility] [address] [address] [place] [address] CBC w/ Auto Diffon Erythrocyte distribution width (RBC) [Ratio] 12.4 % Normal 11.5-14.5 [facility] Comment on above: Performed By: #### 2 [id number] #### [facility] [employer] [facility] [place] [address] Hematocrit (Bld) [Volume fraction] 43.2 % Normal 42.0-52.0 [facility] Comment on above: Performed By: #### 2 615076 #### [facility] [address] [address] [place] [address] Hemoglobin (Bld) [Mass/Vol] 14.6 g/dL Normal 13.5-18.0 [facility] Comment on above: Performed By: #### 2 605655 #### [facility] [address] [address] [place] [address] MCH (RBC) [Entitic mass] 31.2 pg High 27.0-31.0 [facility] Comment on above: Performed By: #### 2 023260 #### [facility] [employer] [address] [place] [address] MCHC (RBC) [Mass/Vol] 33.8 g/dL Normal 33.0-37.0 [facility] Comment on above: Performed By: #### 2 [id number] #### [facility] [employer] [address] [place] [address] MCV (RBC) [Entitic vol] 92.3 fL Normal 78.0-100.0 [facility] Comment on above: Performed By: #### 2 186598 #### [facility] [employer] [address] [place] [address] Platelet mean volume (Bld) [Entitic vol] 9.2 fL Normal 7.4-11.0 [facility] Comment on above: Performed By: #### 2 742254 #### [facility] [employer] [address] [place] [address] Platelets (Bld) [#/Vol] 192 E3/mcL Normal 130-400 [facility] Comment on above: Performed By: #### 2 [id number] #### [facility] [address] [place] [address] RBC (Bld) [#/Vol] 4.68 E6/mcL Normal 3.90-6.[address] [facility] Comment on above: Performed By: #### 2 872757 #### [facility] [address] [place] [address] WBC (Bld) [#/Vol] 6.5 E3/mcL Normal 3.6-11.0 [facility] Comment on above: Performed By: #### 2 120746 #### [employer] [address] [place] [address] CMPon 04-20-2019 Albumin [Mass/Vol] 4.0 g/dL Normal 3.4-5.[address] [facility] Comment on above: Performed By: #### 2 710955 #### [employer] [address] [place] [address] Albumin/Globulin [Mass ratio] 1.3 {ratio} Normal 1.1-1.9 [facility] Comment on above: Performed By: #### 2 [id number] #### [employer] [address] [place] [address]67 Alk Phos 65 Int._Unit/L Normal 33-120 [facility] Comment on above: Performed By: #### 2 729396 #### [employer] [address] [place] [address]02 ALT [Catalytic activity/Vol] 11 Int._Unit/L Normal 10-52 [facility] Comment on above: Performed By: #### 2 001071 #### [facility] [employer] [address] [place] [address] Anion gap [Moles/Vol] 9 mmol/L Low 10-20 [facility] Comment on above: Performed By: #### 2 [id number] #### [facility] [employer] [address] [place] [address] 19446 AST [Catalytic activity/Vol] 13 Int._Unit/L Normal 9-39 [facility] Comment on above: Performed By: #### 2 347397 #### [facility] [employer] [address] [place] [address] Bili Total 0.42 mg/dL Normal 0.00-1.20 [facility] Comment on above: Performed By: #### 2 [id number] #### [facility] [employer] [address] [place], [place] [address] Calcium [Mass/Vol] 8.8 mg/dL Normal 8.6-10.[address] [facility] Comment on above: Performed By: #### 2 041452 #### [facility] [employer] [address] [place], [place] [address] Chloride [Moles/Vol] 105 mmol/L Normal 98-107 [facility] Comment on above: Performed By: #### 2 919086 #### [facility] [employer] [address] [place], [place] [address] CO2 [Moles/Vol] 30.0 mmol/L Normal 21.0-32.0 [facility] Comment on above: Performed By: #### 2 526307 #### [facility] [employer] [address] [place] [address] Creatinine [Mass/Vol] 0.6 mg/dL Normal 0.5-1.3 [facility] Comment on above: Performed By: #### 2 875731 #### [facility] [employer] [address] [place] [address] Globulin (S) [Mass/Vol] 3.0 g/dL Normal 2.0-4.0 [facility] Comment on above: Performed By: #### 2 690522 #### [facility] [employer] [address] [place] [address] Glucose [Mass/Vol] 83 mg/dL Normal 70-[address] [facility] Comment on above: Performed By: #### 2 [id number] #### [employer] [address] [place] [address] Potassium [Moles/Vol] 4.0 mmol/L Normal 3.5-5.3 [facility] Comment on above: Performed By: #### 2 494613 #### [employer] [address] [place] [address] 28768 Protein [Mass/Vol] 7.1 g/dL Normal 6.4-8.[address] [facility] Comment on above: Performed By: #### 2 996347 #### [employer] [address] [place] [address]78 Sodium [Moles/Vol] 140 mmol/L Normal 136-[address] [facility] Comment on above: Performed By: #### 2 334509 #### [employer] [address] [place] [address] Urea nitrogen [Mass/Vol] 10 mg/dL Normal 6-23 [facility] Comment on above: Performed By: #### 2 731559 #### [employer] [address] [place] [address] 16085 Urea nitrogen/Creatinine [Mass ratio] 16.7 ratio Normal 5.4-30.0 [facility] Comment on above: Performed By: #### 2 [id number] #### [employer] [address] [place] [address] Lipid Profileon 04-20-2019 Cholesterol [Mass/Vol] 127 mg/dL Normal 0-199 [facility] Comment on above: Result Comment: TOTA L CHOLEESTEROL: <200 NORMAL 200 - 239 BORDERLINE HIGH >240 HIGH Performed By: #### 3 [id number] #### [employer] [employer] [address] [place] [address] Cholesterol in HDL [Mass/Vol] 46 mg/dL Normal 40-60 [facility] Comment on above: Performed By: #### 3 [id number] #### [employer] [employer] [address] [place] [address] Cholesterol in LDL [Mass/Vol] 72 mg/dL Normal 0-130 [facility] Comment on above: Result Comment: <100 OPTIMAL 100-129 NEAR / ABOVE OPTIMAL 130-159 BORDERLINE HIGH 160-189 HIGH >190 VERY HIGH CALC LDL NOT VALID WHEN TRIGLYCERIDE IS >400 MG/DL Performed By: #### 3 [id number] #### [employer] [employer] [address] [place] [address] Cholesterol in VLDL [Mass/Vol] 9 mg/dL Normal 0-40 [facility] Comment on above: Performed By: #### 3 [id number] #### [employer] [employer] [address] [place] [address] Triglyceride [Mass/Vol] 45 mg/dL Normal 0-149 [facility] Comment on above: Result Comment: AGE DESIRABLE BORDERLINE HIGH 91 D - 9 Y 0 - 74 75 - 99 > 100 10 - 19 Y 0 - 89 90 - 129 > 130 20 -24 Y 0 - 114 115 - 149 > 150 > 25 0 - 149 150 - 199 200 - 499 Performed By: #### 3 [id number] #### [facility] [employer] [facility] [place] [address] Magnesiumon 04-20-2019 Magnesium [Mass/Vol] 2.1 Int._Unit/L Normal 1.6-2.4 [facility] Comment on above: Performed By: #### 2 [id number] #### [facility] [employer] [address] [place] [address] TSHon 04-20-2019 TSH Qn 1.46 mcIU/mL Normal 0.30-5.60 [facility] Comment on above: Performed By: #### 2 669607 #### [facility] [employer] [facility] [place] [address] Valproic Acidon 04-20-2019 Valpro Acid Lvl 57 microgram/mL Normal 50-100 [facility] Comment on above: Performed By: #### 2 365616 #### [facility] [employer] [facility] [place] [address] eGFRon 04-20-2019 GFR/1.73 sq M predicted among non-blacks MDRD (S/P/Bld) [Vol rate/Area] mL/min/{1.73_m2} Normal [facility] Comment on above: Order Comment: Order added by Discern Expert. Performed By: #### 1 [id number] #### [facility] [employer] [facility] [place] [address] XR Foot 3+ Views Lefton 05-1 0-2019 XR Foot 3+ Views Left Exam Date/Time: 12/01/2018 11:43 EDT Reason for Exam: Pain, Traumatic Report STUDY: XR Foot 3+ Views Left; 12/01/2018 11:43 am INDICATION: Pain, Traumatic. COMPARISON: None ACCESSION NUMBER(S): [id number] ORDERING CLINICIAN: Abdullahi Chong FINDINGS: Likely generalized osteopenia. No fracture seen. No dislocation. IMPRESSION: Osteopenia. No acute osseous findings left foot. FINAL REPORT Dictated: 12/01/2018 12:14 pm Dean Tovar MD Signed (Electronic Signature): 12/01/2018 12:14 pm Signed by: Dean Tovar MD Technologist: JIM [facility] XR MODIFIED BARIUM SWALLOWon 11-20-2018 No evidence of aspiration Please see speech pathologist's report for additional details and recommendations. Workstation ID: [id number] [facility] EXAMINATION: XR SWALLOWING FUNCTION STUDY WITH VIDEO HISTORY: ORDERING SYSTEM PROVIDED HISTORY: Dysphagia, unspecified type, TECHNOLOGIST PROVIDED HISTORY: Reason for exam: DYSPHAGIA Illness/Other Encounter Type: Ongoing Additional signs and symptoms: DYSPHAGIA Fluoro dose in mGy: 0 ORDERING SYSTEM PROVIDED DIAGNOSIS CODES: R13.10 Dysphagia, unspecified type COMPARISON: None TECHNIQUE: Patient was challenged with multiple consistencies of barium while undergoing video fluoroscopic imaging in the lateral projection. Fluoroscopic time measures 1.08 minutes. 441 images were saved. FINDINGS: Somewhat limited study due to patient cooperation and positioning. No evidence of aspiration or deep penetration with multiple consistencies. [facility] Interface, Rad In Get [employer] - 11/20/2018 11:01 AM EDT EXAMINATION: XR SWALLOWING FUNCTION STUDY WITH VIDEO HISTORY: ORDERING SYSTEM PROVIDED HISTORY: Dysphagia, unspecified type, TECHNOLOGIST PROVIDED HISTORY: Reason for exam: DYSPHAGIA Illness/Other Encounter Type: Ongoing Additional signs and symptoms: DYSPHAGIA Fluoro dose in mGy: 0 ORDERING SYSTEM PROVIDED DIAGNOSIS CODES: R13.10 Dysphagia, unspecified type COMPARISON: None TECHNIQUE: Patient was challenged with multiple consistencies of barium while undergoing video fluoroscopic imaging in the lateral projection. Fluoroscopic time measures 1.08 minutes. 441 images were saved. FINDINGS: Somewhat limited study due to patient cooperation and positioning. No evidence of aspiration or deep penetration with multiple consistencies. IMPRESSION: No evidence of aspiration Please see speech pathologist's report for additional details and recommendations. Workstation ID: [id number] [facility] Ammoniaon 04-14-2018 Ammonia mass conc (P) 33 Umol/L Normal 12-47 [facility] Comment on above: Result Comment: This test result might be falsely depressed or falsely elevated onsamples drawn from patients taking Sulfasalazine and Sulfapyridine.Venipuncture should occur prior to taking either of these drugs. Performed By: #### V ALP, CMET ####Unless otherwise noted, all testing performed by [facility], [place] [phone]: [id number] Director: Alpesh Yee M.D. Ammonia mass conc (P) 33 ug/dL Invalid Interpretation Code [facility] Comment on above: This test result vj ht be falsely depressed or falsely elevated on samples drawn from patients taking Sulfasalazine and Sulfapyridine. Venipuncture should occur prior to taking either of these drugs. CBC and Differentialon 04-14 Basophils Auto #/vol (Bld) 0.0 10*3/uL Invalid Interpretation Code [facility] Basophils/100 WBC Auto (Bld) 0.7 % Invalid Interpretation Code [facility] Eosinophils Auto #/vol (Bld) 0.1 10*3/uL Invalid Interpretation Code [facility] Eosinophils/100 WBC Auto (Bld) 1.0 % Invalid Interpretation Code [facility] Erythrocyte distribution width Auto Ratio (RBC) 12.1 % Invalid Interpretation Code 10 - 14.3 % [facility] Hematocrit Auto Volume Fraction (Bld) 43.4 % Invalid Interpretation Code 37.9 - 49.2 % [facility] Hemoglobin mass conc (Bld) 15.1 g/dL Invalid Interpretation Code 12.9 - 16.9 g/dL [facility] Lymphocytes Auto #/vol (Bld) 1.7 10*3/uL Invalid Interpretation Code [facility] Lymphocytes/100 WBC Auto (Bld) 32.6 % Invalid Interpretation Code [facility] MCH Auto Entitic mass (RBC) 31.9 pg Invalid Interpretation Code 27.7 - 34.6 pg [facility] MCHC Auto mass conc (RBC) 34.7 g/dL Invali d Interpretation Code 32.9 - 35.5 g/dL [facility] MCV Auto Entitic volume (RBC) 92.0 fL Invalid Interpretation Code [facility] Monocytes Auto #/vol (Bld) 0.4 10*3/uL Invalid Interpretation Code [facility] Monocytes/100 WBC Auto (Bld) 8.3 % Invalid Interpretation Code [facility] Neutrophils Auto #/vol (Bld) 3.0 10*3/uL Invalid Interpretation Code [facility] Platelet mean volume Auto Entitic volume (Bld) 9.3 fL Invalid Interpretation Code [facility] Platelets Auto #/vol (Bld) 164 10*3/uL Invalid Interpretation Code [facility] RBC Auto #/vol (Bld) 4.72 10*6/uL Invalid Interpretation Code [facility] Segmented Neut 57.4 % Invalid Interpretation Code [facility] WBC Auto #/vol (Bld) 5.2 10*3/uL Invalid Interpretation Code [facility] CBC with Diffon 04-14-2018 Basophils Auto #/vol (Bld) 0.0 K/mcL Normal 0-0.2 [facility] Comment on above: Performed By: #### V ALP, CMET ####Unless otherwise noted, all testing performed by [address] [phone]: [id number] Director: Alpesh Yee M.D. Basophils/100 WBC Auto (Bld) 0.7 % Normal [facility] Comment on above: Performed By: #### V ALP, CMET ####Unless otherwise noted, all testing performed by [address] [phone]: [id number] Director: Alpesh Yee M.D. Eosinophils Auto #/vol (Bld) 0.1 K/mcL Normal 0-0.5 [facility] Comment on above: Performed By: #### V ALP, CMET ####Unless otherwise noted, all testing performed by [address] [phone]: [id number] Director: Alpesh Yee M.D. Eosinophils/100 WBC Auto (Bld) 1.0 % Normal [facility] Comment on above: Performed By: #### V ALP, CMET ####Unless otherwise noted, all testing performed by [address] [phone]: [id number] Director: Alpesh Yee M.D. Erythrocyte distribution width Auto Ratio (RBC) 12.1 % Normal 10-14.3 [facility] Comment on above: Performed By: #### V ALP, CMET ####Unless otherwise noted, all testing performed by [address] [phone]: [id number] Director: Alpesh Yee M.D. Hematocrit Auto Volume Fraction (Bld) 43.4 % Normal 37.9-49.2 [facility] Comment on above: Performed By: #### V ALP, CMET ####Unless otherwise noted, all testing performed by [address] [phone]: [id number] Director: Alpesh Yee M.D. Hemoglobin mass conc (Bld) 15.1 g/dL Normal 12.9-16.9 [facility] Comment on above: Performed By: #### V ALP, CMET ####Unless otherwise noted, all testing performed by [address] [phone]: [id number] Director: Alpesh Yee M.D. Lymphocytes Auto #/vol (Bld) 1.7 K/mcL Normal 0.9-3.6 [facility] Comment on above: Performed By: #### V ALP, CMET ####Unless otherwise noted, all testing performed by [address] [phone]: [id number] Director: Alpesh Yee M.D. Lymphocytes/100 WBC Auto (Bld) 32.6 % Normal [facility] Comment on above: Performed By: #### V ALP, CMET ####Unless otherwise noted, all testing performed by [place] [phone]: [id number] Director: Alpesh Yee M.D. MCH Auto Entitic mass (RBC) 31.9 pg Normal 27.7-34.6 [facility] Comment on above: Performed By: #### V ALP, CMET ####Unless otherwise noted, all testing performed by [address] [phone]: [id number] Director: Alpesh Yee M.D. MCHC Auto mass conc (RBC) 34.7 g/dL Normal 32.9-35.5 [facility] Comment on above: Performed By: #### V ALP, CMET ####Unless otherwise noted, all testing performed by [address] [phone]: [id number] Director: Alpesh Yee M.D. MCV Auto Entitic volume (RBC) 92.0 fL Normal 82.8-99.3 [facility] Comment on above: Performed By: #### V ALP, CMET ####Unless otherwise noted, all testing performed by [address] [phone]: [id number] Director: Alpesh Yee M.D. Monocytes Auto #/vol (Bld) 0.4 K/mcL Normal 0.2-0.6 [facility] Comment on above: Performed By: #### V ALP, CMET ####Unless otherwise noted, all testing performed by [address] [phone]: [id number] Director: Alpesh Yee M.D. Monocytes/100 WBC Auto (Bld) 8.3 % Normal [facility] Comment on above: Performed By: #### V ALP, CMET ####Unless otherwise noted, all testing performed by [address] [phone]: [id number] Director: Alpesh Yee M.D. Neutrophils Auto #/vol (Bld) 3.0 K/mcL Normal 1.4-6.8 [facility] Comment on above: Performed By: #### V ALP, CMET ####Unless otherwise noted, all testing performed by [address] [phone]: [id number] Director: Alpesh Yee M.D. Platelet mean volume Auto Entitic volume (Bld) 9.3 fL Normal 6.6-10.8 [facility] Comment on above: Performed By: #### V ALP, CMET ####Unless otherwise noted, all testing performed by [address] [phone]: [id number] Director: Alpesh Yee M.D. Platelets Auto #/vol (Bld) 164 K/mcL Normal 139-354 [facility] Comment on above: Performed By: #### V ALP, CMET ####Unless otherwise noted, all testing performed by [address] [phone]: [id number] Director: Alpesh Yee M.D. RBC Auto #/vol (Bld) 4.72 M/mcL Normal 4.0-5.5 [facility] Comment on above: Performed By: #### V ALP, CMET ####Unless otherwise noted, all testing performed by [address] [phone]: [id number] Director: Alpesh Yee M.D. Segmented Neut % 57.4 % Normal [facility] Comment on above: Performed By: #### V ALP, CMET ####Unless otherwise noted, all testing performed by [address] [phone]: [id number] Director: Alpesh Yee M.D. WBC Auto #/vol (Bld) 5.2 K/mcL Normal 3.6-10.4 [facility] Comment on above: Performed By: #### V ALP, CMET ####Unless otherwise noted, all testing performed by [address] [phone]: [id number] Director: Alpesh Yee M.D. Comprehensive Metabolic Pane omar 04-14-2018 Albumin mass conc 3.3 g/dL Normal 3.2-5.2 [facility] Comment on above: Performed By: #### V ALP, CMET ####Unless otherwise noted, all testing performed by [address] [phone]: [id number] Director: Alpesh Yee M.D. ALP enzyme act/vol 77 U/L Normal 40-150 [facility] Comment on above: Performed By: #### V ALP, CMET ####Unless otherwise noted, all testing performed by [address] [phone]: [id number] Director: Alpesh Yee M.D. ALT enzyme act/vol 14 U/L Normal 14-65 [facility] Comment on above: Result Comment: This test result might be falsely depressed or falsely elevated onsamples drawn from patients taking Sulfasalazine and Sulfapyridine.Venipuncture should occur prior to taking either of these drugs. Performed By: #### V ALP, CMET ####Unless otherwise noted, all testing performed by [address] [phone]: [id number] Director: Alpesh Yee M.D. AST enzyme act/vol 17 U/L Normal 0-45 [facility] Comment on above: Result Comment: This test result might be falsely depressed or falsely elevated onsamples drawn from patients taking Sulfasalazine and Sulfapyridine.Venipuncture should occur prior to taking either of these drugs. Performed By: #### V ALP, CMET ####Unless otherwise noted, all testing performed by [place] [phone]: [id number] Director: Alpesh Yee M.D. Bilirubin mass conc 0.4 mg/dL Normal 0.3-1.2 [facility] Comment on above: Performed By: #### V ALP, CMET ####Unless otherwise noted, all testing performed by [address] [phone]: [id number] Director: Alpesh Yee M.D. Calcium mass conc 8.7 mg/dL Normal 8.4-10.2 [facility] Comment on above: Performed By: #### V ALP, CMET ####Unless otherwise noted, all testing performed by [address] [phone]: [id number] Director: Alpesh Yee M.D. Chloride molar conc 106 mmol/L Normal 98-108 [facility] Comment on above: Performed By: #### V ALP, CMET ####Unless otherwise noted, all testing performed by [address] [phone]: [id number] Director: Alpesh Yee M.D. CO2 molar conc 27 mmol/L Normal 21-32 [facility] Comment on above: Performed By: #### V ALP, CMET ####Unless otherwise noted, all testing performed by [address] [phone]: [id number] Director: Alpesh Yee M.D. Creatinine mass conc 0.68 mg/dL Normal 0.50-1.30 [facility] Comment on above: Performed By: #### V ALP, CMET ####Unless otherwise noted, all testing performed by [address] [phone]: [id number] Director: Alpesh Yee M.D. GFR/1.73 sq M predicted among blacks MDRD vol rate/area (S/P/Bld) mL/min/{1.73_m2} Normal [facility] Comment on above: Result Comment: Afri can Burmese GFR Calc Performed By: #### V ALP, CMET ####Unless otherwise noted, all testing performed by [address] [phone]: [id number] Director: Alpesh Yee M.D. GFR/1.73 sq M predicted among non-blacks MDRD vol rate/area (S/P/Bld) mL/min/{1.73_m2} Normal [facility] Comment on above: Result Comment: Non- GFR CalceGFR is an estimated Glomerular Filtration Rate based on the valueof the patient's serum creatinine. In outpatients, eGFR should be usedas a helpful tool in screening for CKD. In inpatients or patients withacute renal failure, eGFR represents the GFR at the moment of the drawand should be used with caution. Performed By: #### V ALP, CMET ####Unless otherwise noted, all testing performed by [address] [phone]: [id number] Director: Alpesh Yee M.D. Glucose mass conc 79 mg/dL Normal 70-99 [facility] Comment on above: Result Comment: This test result might be falsely depressed or falsely elevated onsamples drawn from patients taking Sulfasalazine and Sulfapyridine.Venipuncture should occur prior to taking either of these drugs. Performed By: #### V ALP, CMET ####Unless otherwise noted, all testing performed by [address] [phone]: [id number] Director: Alpesh Yee M.D. Potassium molar conc 4.3 mmol/L Normal 3.5-5.1 [facility] Comment on above: Performed By: #### V ALP, CMET ####Unless otherwise noted, all testing performed by [address] [phone]: [id number] Director: Alpesh Yee M.D. Protein mass conc 7.7 g/dL Normal 6.0-8.0 [facility] Comment on above: Performed By: #### V ALP, CMET ####Unless otherwise noted, all testing performed by [address] [phone]: [id number] Director: Alpesh Yee M.D. Sodium molar conc 140 mmol/L Normal 135-145 [facility] Comment on above: Performed By: #### V ALP, CMET ####Unless otherwise noted, all testing performed by [address] [phone]: [id number] Director: Alpesh Yee M.D. Urea nitrogen mass conc 9 mg/dL Normal 8-25 [facility] Comment on above: Performed By: #### V ALP, CMET ####Unless otherwise noted, all testing performed by [address] [phone]: [id number] Director: Alpesh Nakia, M.D. Albumin mass conc 3.3 g/dL Invalid Interpretation Code 3.2 - 5.2 g/dL [facility] ALP enzyme act/vol 77 U/L Invalid Interpretation Code 40 - 150 U/L [facility] ALT enzyme act/vol 14 U/L Invalid Interpretation Code 14 - 65 U/L [facility] Comment on above: This test result vj ht be falsely depressed or falsely elevated on samples drawn from patients taking Sulfasalazine and Sulfapyridine. Venipuncture should occur prior to taking either of these drugs. AST enzyme act/vol 17 U/L Invalid Interpretation Code 0 - 45 U/L [facility] Comment on above: This test result vj ht be falsely depressed or falsely elevated on samples drawn from patients taking Sulfasalazine and Sulfapyridine. Venipuncture should occur prior to taking either of these drugs. Bilirubin mass conc 0.4 mg/dL Invalid Interpretation Code 0.3 - 1.2 mg/dL [facility] Calcium mass conc 8.7 mg/dL Invalid Interpretation Code 8.4 - 10.2 mg/dL [facility] Chloride molar conc 106 mmol/L Invalid Interpretation Code 98 - 108 mmol/L [facility] CO2 molar conc 27 mmol/L Invalid Interpretation Code 21 - 32 mmol/L [facility] Creatinine mass conc 0.68 mg/dL Invalid Interpretation Code 0.5 - 1.3 mg/dL [facility] GFR/1.73 sq M predicted among blacks MDRD vol rate/area (S/P/Bld) mL/min/{1.73_m2} Invalid Interpretation Code ml/min/1.73sq .m [facility] Comment on above: GFR Calc GFR/1.73 sq M predicted among non-blacks MDRD vol rate/area (S/P/Bld) mL/min/{1.73_m2} Invalid Interpretation Code ml/min/1.73sq .m [facility] Comment on above: Non- GFR Calc eGFR is an estimated Glomerular Filtration Rate based on the value of the patient's serum creatinine. In outpatients, eGFR should be used as a helpful tool in screening for CKD. In inpatients or patients with acute renal failure, eGFR represents the GFR at the moment of the draw and should be used with caution. Glucose mass conc 79 mg/dL Invalid Interpretation Code 70 - 99 mg/dL [facility] Comment on above: This test result vj ht be falsely depressed or falsely elevated on samples drawn from patients taking Sulfasalazine and Sulfapyridine. Venipuncture should occur prior to taking either of these drugs. Potassium molar conc 4.3 mmol/L Invalid Interpretation Code 3.5 - 5.1 mmol/L [facility] Protein mass conc 7.7 g/dL Invalid Interpretation Code 6 - 8 g/dL [facility] Sodium molar conc 140 mmol/L Invalid Interpretation Code 135 - 145 mmol/L [facility] Urea nitrogen mass conc 9 mg/dL Invalid Interpretation Code 8 - 25 mg/dL [facility] Lipid Panelon 04-14-2018 Cholesterol in HDL mass conc 54 mg/dL Normal 40-59 [facility] Comment on above: Performed By: #### V ALP, CMET ####Unless otherwise noted, all testing performed by [address] [phone]: [id number] Director: Alpesh Yee M.D. Cholesterol in LDL mass conc 67 mg/dL Normal 10-150 [facility] Comment on above: Performed By: #### V ALP, CMET ####Unless otherwise noted, all testing performed by [address] [phone]: [id number] Director: Alpesh Yee M.D. Cholesterol in VLDL mass conc 14 mg/dL Normal 5-40 [facility] Comment on above: Performed By: #### V ALP, CMET ####Unless otherwise noted, all testing performed by [address] [phone]: [id number] Director: Alpesh Yee M.D. Cholesterol mass conc 134 mg/dL Normal 100-199 [facility] Comment on above: Performed By: #### V ALP, CMET ####Unless otherwise noted, all testing performed by [address] [phone]: [id number] Director: Alpesh Yee M.D. Cholesterol.total/Cholest antoinette in HDL mass ratio 2.5 {ratio} Low 3.2-5.0 [facility] Comment on above: Result Comment: Male Coronary Heart Disease Risk Factor (CHDRF):Average risk= 5.01/2 Average risk= 3.42 times Average risk= 9.6 Performed By: #### V ALP, CMET ####Unless otherwise noted, all testing performed by [address] [phone]: [id number] Director: Alpesh Yee M.D. Triglyceride mass conc 70 mg/dL Normal 25-120 [facility] Comment on above: Performed By: #### V ALP, CMET ####Unless otherwise noted, all testing performed by [address] [phone]: [id number] Director: Alpesh Yee M.D. Cholesterol in HDL mass conc 54 mg/dL Invalid Interpretation Code 40 - 59 mg/dL [facility] Cholesterol in LDL mass conc 67 mg/dL Invalid Interpretation Code 10 - 150 mg/dL [facility] Cholesterol in VLDL mass conc 14 mg/dL Invalid Interpretation Code 5 - 40 mg/dL [facility] Cholesterol mass conc 134 mg/dL Invalid Interpretation Code 100 - 199 mg/dL [facility] Cholesterol.total/Cholest antoinette in HDL mass ratio 2.5 {ratio} Low [facility] Comment on above: Male Coronary Heart Disease Risk Factor (CHDRF): Average risk= 5.0 1/2 Average risk= 3.4 2 times Average risk= 9.6 Interpretation and review of laboratory results Abnormal Invalid Interpretation Code [facility] Triglyceride mass conc 70 mg/dL Invalid Interpretation Code 25 - 120 mg/dL [facility] Magnesiumon 04-14-2018 Magnesium mass conc 2.4 mg/dL Normal 1.6-2.4 [facility] Comment on above: Performed By: #### V ALP, CMET ####Unless otherwise noted, all testing performed by [address] [phone]: [id number] Director: Alpesh Yee M.D. Magnesium Levelon 04-14-2018 Magnesium mass conc 2.4 mg/dL Invalid Interpretation Code 1.6 - 2.4 mg/dL [facility] TSHon 04-14-2018 Thyrotropin Qn 1.75 uIU/mL Normal 0.320-5.000 [facility] Comment on above: Result Comment: Samp les from patients routinely receiving high dose biotin therapy(100-300 mg/day) may show falsely decreased results. Please correlateclinically. Performed By: #### V ALP, CMET ####Unless otherwise noted, all testing performed by [address] [phone]: [id number] Director: Alpesh Yee M.D. Thyrotropin Qn 1.75 m[IU]/L Invalid Interpretation Code [facility] Comment on above: Samples from patient s routinely receiving high dose biotin therapy (100-300 mg/day) may show falsely decreased results. Please correlate clinically. Valproic Acidon 04-14-2018 Protein mass conc 53 mcg/mL Normal 50-100 [facility] Comment on above: Result Comment: Resu lt should be correlated with last dose as reflected in the medicalrecord. Performed By: #### V ALP, CMET ####Unless otherwise noted, all testing performed by [address] [phone]: [id number] Director: Alpesh Yee M.D. Valproic Acid Levelon 2017 Protein mass conc 53 g/dL Invalid Interpretation Code [facility] Comment on above: Result should be cor related with last dose as reflected in the medical record. Ammoniaon 01-05-2018 Ammonia mass conc (P) 36 Umol/L Normal 12-47 [facility] Comment on above: Result Comment: This test result might be falsely depressed or falsely elevated onsamples drawn from patients taking Sulfasalazine and Sulfapyridine.Venipuncture should occur prior to taking either of these drugs. Performed By: #### A MON ####Unless otherwise noted, all testing performed by [address] [phone]: [id number] Director: Alpesh Yee M.D. CBC w/o Diffon 12-23-2017 Erythrocyte distribution width Auto Ratio (RBC) 13.7 % Normal 10-14.3 [facility] Comment on above: Performed By: #### C BCWOD ####Unless otherwise noted, all testing performed by [address] [phone]: [id number] Director: Alpesh Yee M.D. Hematocrit Auto Volume Fraction (Bld) 43.9 % Normal 37.9-49.2 [facility] Comment on above: Performed By: #### C BCWOD ####Unless otherwise noted, all testing performed by [address] [phone]: [id number] Director: Alpesh Yee M.D. Hemoglobin mass conc (Bld) 14.9 g/dL Normal 12.9-16.9 [facility] Comment on above: Performed By: #### C BCWOD ####Unless otherwise noted, all testing performed by [address] [phone]: [id number] Director: Alpesh Yee M.D. MCH Auto Entitic mass (RBC) 32.4 pg Normal 27.7-34.6 [facility] Comment on above: Performed By: #### C BCWOD ####Unless otherwise noted, all testing performed by [address] [phone]: [id number] Director: Alpesh Yee M.D. MCHC Auto mass conc (RBC) 33.9 g/dL Normal 32.9-35.5 [facility] Comment on above: Performed By: #### C BCWOD ####Unless otherwise noted, all testing performed by [address] [phone]: [id number] Director: Alpesh Yee M.D. MCV Auto Entitic volume (RBC) 95.4 fL Normal 82.8-99.3 [facility] Comment on above: Performed By: #### C BCWOD ####Unless otherwise noted, all testing performed by [address] [phone]: [id number] Director: Alpesh Yee M.D. Platelet mean volume Auto Entitic volume (Bld) 9.5 fL Normal 6.6-10.8 [facility] Comment on above: Performed By: #### C BCWOD ####Unless otherwise noted, all testing performed by [address], [place] [phone]: [id number] Director: Alpesh Yee M.D. Platelets Auto #/vol (Bld) 122 K/mcL Low 139-354 [facility] Comment on above: Performed By: #### C BCWOD ####Unless otherwise noted, all testing performed by [address] [phone]: [id number] Director: Alpesh Yee M.D. RBC Auto #/vol (Bld) 4.60 M/mcL Normal 4.0-5.5 [facility] Comment on above: Performed By: #### C BCWOD ####Unless otherwise noted, all testing performed by [address] [phone]: [id number] Director: Alpesh Yee M.D. WBC Auto #/vol (Bld) 4.0 K/mcL Normal 3.6-10.4 [facility] Comment on above: Performed By: #### C BCWOD ####Unless otherwise noted, all testing performed by [address] [phone]: [id number] Director: Alpesh Yee M.D. Ammoniaon 12-22-2017 Ammonia mass conc (P) 52 Umol/L Critically high 12-47 [facility] Comment on above: Result Comment: [id number] CALLED CRITICAL RESULTS ON 12/22/2017 @ 0823 TO AND READ BACK FIFI MONTES in Syed test result might be falsely depressed or falsely elevated onsamples drawn from patients taking Sulfasalazine and Sulfapyridine.Venipuncture should occur prior to taking either of these drugs. Performed By: #### E XCEP, LARISA, VALP, CMET, TSH ####Unless otherwise noted, all testing performed by [address] [phone]: [id number] Director: Alpesh Yee M.D. Comprehensive Metabolic Pane omar 12-22-2017 Albumin mass conc 3.1 g/dL Low 3.2-5.2 [facility] Comment on above: Performed By: #### E XCEP, LARISA, VALP, CMET, TSH ####Unless otherwise noted, all testing performed by [address] [phone]: [id number] Director: Alpesh Yee M.D. ALP enzyme act/vol 67 U/L Normal 40-150 [facility] Comment on above: Performed By: #### E XCEP, LARISA, VALP, CMET, TSH ####Unless otherwise noted, all testing performed by [address] [phone]: [id number] Director: Alpesh Yee M.D. ALT enzyme act/vol 27 U/L Normal 14-65 [facility] Comment on above: Result Comment: This test result might be falsely depressed or falsely elevated onsamples drawn from patients taking Sulfasalazine and Sulfapyridine.Venipuncture should occur prior to taking either of these drugs. Performed By: #### E XCEP, LARISA, VALP, CMET, TSH ####Unless otherwise noted, all testing performed by [address] [phone]: [id number] Director: Alpesh Yee M.D. AST enzyme act/vol 29 U/L Normal 0-45 [facility] Comment on above: Result Comment: This test result might be falsely depressed or falsely elevated onsamples drawn from patients taking Sulfasalazine and Sulfapyridine.Venipuncture should occur prior to taking either of these drugs. Performed By: #### E XCEP, LARISA, VALP, CMET, TSH ####Unless otherwise noted, all testing performed by [address] [phone]: [id number] Director: Alpesh Yee M.D. Bilirubin mass conc 0.6 mg/dL Normal 0.3-1.2 [facility] Comment on above: Performed By: #### E XCEP, LARISA, VALP, CMET, TSH ####Unless otherwise noted, all testing performed by [address] [phone]: [id number] Director: Alpesh Yee M.D. Calcium mass conc 9.0 mg/dL Normal 8.4-10.2 [facility] Comment on above: Performed By: #### E XCEP, LARISA, VALP, CMET, TSH ####Unless otherwise noted, all testing performed by [address] [phone]: [id number] Director: Alpesh Yee M.D. Chloride molar conc 112 mmol/L High 98-108 [facility] Comment on above: Performed By: #### E XCEP, LARISA, VALP, CMET, TSH ####Unless otherwise noted, all testing performed by [address] [phone]: [id number] Director: Alpesh Yee M.D. CO2 molar conc 31 mmol/L Normal 21-32 [facility] Comment on above: Performed By: #### E XCEP, LARISA, VALP, CMET, TSH ####Unless otherwise noted, all testing performed by [address] [phone]: [id number] Director: Alpesh Yee M.D. Creatinine mass conc 0.72 mg/dL Normal 0.50-1.30 [facility] Comment on above: Performed By: #### E XCEP, LARISA, VALP, CMET, TSH ####Unless otherwise noted, all testing performed by [address] [phone]: [id number] Director: Alpesh Yee M.D. GFR/1.73 sq M predicted among blacks MDRD vol rate/area (S/P/Bld) mL/min/{1.73_m2} Normal [facility] Comment on above: Result Comment: Afri can Burmese GFR Calc Performed By: #### E XCEP, LARISA, VALP, CMET, TSH ####Unless otherwise noted, all testing performed by [address] [phone]: [id number] Director: Alpesh Yee M.D. GFR/1.73 sq M predicted among non-blacks MDRD vol rate/area (S/P/Bld) mL/min/{1.73_m2} Normal [facility] Comment on above: Result Comment: Non- GFR CalceGFR is an estimated Glomerular Filtration Rate based on the valueof the patient's serum creatinine. In outpatients, eGFR should be usedas a helpful tool in screening for CKD. In inpatients or patients withacute renal failure, eGFR represents the GFR at the moment of the drawand should be used with caution. Performed By: #### E XCEP, LARISA, VALP, CMET, TSH ####Unless otherwise noted, all testing performed by [place] [phone]: [id number] Director: Alpesh Yee M.D. Glucose mass conc 82 mg/dL Normal 70-99 [facility] Comment on above: Result Comment: This test result might be falsely depressed or falsely elevated onsamples drawn from patients taking Sulfasalazine and Sulfapyridine.Venipuncture should occur prior to taking either of these drugs. Performed By: #### E XCEP, LARISA, VALP, CMET, TSH ####Unless otherwise noted, all testing performed by [place] [id number]: [id number] Director: Alpesh Yee M.D. Potassium molar conc 5.1 mmol/L Normal 3.5-5.1 [facility] Comment on above: Performed By: #### E XCEP, LARISA, VALP, CMET, TSH ####Unless otherwise noted, all testing performed by [address]CLIA: [id number] Director: Alpesh Yee M.D. Protein mass conc 7.0 g/dL Normal 6.0-8.0 [facility] Comment on above: Performed By: #### E XCEP, LARISA, VALP, CMET, TSH ####Unless otherwise noted, all testing performed by [address]8509CLIA: [id number] Director: Alpesh Yee M.D. Sodium molar conc 148 mmol/L High 135-145 [facility] Comment on above: Performed By: #### E XCEP, LARISA, VALP, CMET, TSH ####Unless otherwise noted, all testing performed by [address] [phone]: [id number] Director: Alpesh Yee M.D. Urea nitrogen mass conc 16 mg/dL Normal 8-25 [facility] Comment on above: Performed By: #### E XCEP, LARISA, VALP, CMET, TSH ####Unless otherwise noted, all testing performed by [address] [phone]: [id number] Director: Alpesh Yee M.D. Exception Noticeon 8 Exception Notice SPECIMEN CLOTTED. PATIENT ACCOUNT CREDITED FOR CBC WITHOUT DIFFERENTIAL. Normal [facility] Comment on above: Performed By: #### E XCEP, LARISA, VALP, CMET, TSH ####Unless otherwise noted, all testing performed by [address] [phone]: [id number] Director: Alpesh Yee M.D. TSHon 12-22-2017 Thyrotropin Qn 2.71 uIU/mL Normal 0.320-5.000 [facility] Comment on above: Result Comment: Samp les from patients routinely receiving high dose biotin therapy(100-300 mg/day) may show falsely decreased results. Please correlateclinically. Performed By: #### E XCEP, LARISA, VALP, CMET, TSH ####Unless otherwise noted, all testing performed by [address] [phone]: [id number] Director: Alpesh Yee M.D. Valproic Acidon 12-22-2017 Protein mass conc 71 mcg/mL Normal 50-100 [facility] Comment on above: Result Comment: Resu lt should be correlated with last dose as reflected in the medicalrecord. Performed By: #### E XCEP, LARISA, VALP, CMET, TSH ####Unless otherwise noted, all testing performed by [address] [phone]: [id number] Director: Alpesh Yee M.D. Ammoniaon 11-10-2017 Ammonia 25 Umol/L Invalid Interpretation Code [facility] Ammonia mass conc (P) 25 Umol/L Normal 12-47 [facility] Comment on above: Result Comment: This test result might be falsely depressed or falsely elevated onsamples drawn from patients taking Sulfasalazine and Sulfapyridine.Venipuncture should occur prior to taking either of these drugs. Performed By: #### A MON ####Unless otherwise noted, all testing performed by [address] [phone]: [id number] Director: Alpesh Yee M.D. Comprehensive Metabolic Pane [facility] 07-06-2017 Alanine aminotransferase (ALT) 22 U/L Normal 14-65 [facility] Comment on above: Result Comment: This test result might be falsely depressed or falsely elevated onsamples drawn from patients taking Sulfasalazine and Sulfapyridine.Venipuncture should occur prior to taking either of these drugs. Performed By: #### V ALP, CMET ####Unless otherwise noted, all testing performed by [address] [phone]: [id number] Director: Alpesh Yee M.D. Albumin 3.1 g/dL Low 3.2-5.2 [facility] Comment on above: Performed By: #### V ALP, CMET ####Unless otherwise noted, all testing performed by [place] [phone]: [id number] Director: Alpesh Yee M.D. Alkaline phosphatase (ALP) 64 U/L Normal 40-150 [facility] Comment on above: Performed By: #### V ALP, CMET ####Unless otherwise noted, all testing performed by [place] [phone]: [id number] Director: Alpesh Yee M.D. Aspartate aminotransferase (AST) 16 U/L Normal 0-45 [facility] Comment on above: Result Comment: This test result might be falsely depressed or falsely elevated onsamples drawn from patients taking Sulfasalazine and Sulfapyridine.Venipuncture should occur prior to taking either of these drugs. Performed By: #### V ALP, CMET ####Unless otherwise noted, all testing performed by [address] [phone]: [id number] Director: Alpesh Yee M.D. Bilirubin mass conc 0.5 mg/dL Normal 0.3-1.2 [facility] Comment on above: Performed By: #### V ALP, CMET ####Unless otherwise noted, all testing performed by [address] [phone]: [id number] Director: Alpesh Yee M.D. Calcium 8.6 mg/dL Normal 8.4-10.2 [facility] Comment on above: Performed By: #### V ALP, CMET ####Unless otherwise noted, all testing performed by [address] [phone]: [id number] Director: Alpesh Yee M.D. Chloride 107 mmol/L Normal 98-108 [facility] Comment on above: Performed By: #### V ALP, CMET ####Unless otherwise noted, all testing performed by [place] [phone]: [id number] Director: Alpesh Yee M.D. CO2 30 mmol/L Normal 21-32 [facility] Comment on above: Performed By: #### V ALP, CMET ####Unless otherwise noted, all testing performed by [place] [phone]: [id number] Director: Alpesh Yee M.D. Creatinine 0.64 mg/dL Normal 0.50-1.30 [facility] Comment on above: Performed By: #### V ALP, CMET ####Unless otherwise noted, all testing performed by [address] [phone]: [id number] Director: Alpesh Yee M.D. eGFR (black) mL/min/{1.73_m2} Normal [facility] Comment on above: Result Comment: Afri can Burmese GFR Calc Performed By: #### V ALP, CMET ####Unless otherwise noted, all testing performed by [address] [phone]: [id number] Director: Alpesh Yee M.D. eGFR (non-black) mL/min/{1.73_m2} Normal [facility] Comment on above: Result Comment: Non- GFR CalceGFR is an estimated Glomerular Filtration Rate based on the valueof the patient's serum creatinine. In outpatients, eGFR should be usedas a helpful tool in screening for CKD. In inpatients or patients withacute renal failure, eGFR represents the GFR at the moment of the drawand should be used with caution. Performed By: #### V ALP, CMET ####Unless otherwise noted, all testing performed by [address] [phone]: [id number] Director: Alpesh Yee M.D. Glucose 84 mg/dL Invalid Interpretation Code 70 - 99 mg/dL [facility] Glucose mass conc 84 mg/dL Normal 70-99 [facility] Comment on above: Result Comment: This test result might be falsely depressed or falsely elevated onsamples drawn from patients taking Sulfasalazine and Sulfapyridine.Venipuncture should occur prior to taking either of these drugs. Performed By: #### V ALP, CMET ####Unless otherwise noted, all testing performed by [address] [phone]: [id number] Director: Alpesh Yee M.D. Interpretation and review of laboratory results Abnormal Invalid Interpretation Code [facility] Potassium 4.2 mmol/L Normal 3.5-5.1 [facility] Comment on above: Performed By: #### V ALP, CMET ####Unless otherwise noted, all testing performed by [address] [phone]: [id number] Director: Alpesh Yee M.D. Protein 6.6 g/dL Normal 6.0-8.0 [facility] Comment on above: Performed By: #### V ALP, CMET ####Unless otherwise noted, all testing performed by [address] [phone]: [id number] Director: Alpesh Yee M.D. Sodium 144 mmol/L Normal 135-145 [facility] Comment on above: Performed By: #### V ALP, CMET ####Unless otherwise noted, all testing performed by [address] [phone]: [id number] Director: Alpesh Yee M.D. Urea nitrogen 16 mg/dL Normal 8-25 [facility] Comment on above: Performed By: #### V ALP, CMET ####Unless otherwise noted, all testing performed by [address] [phone]: [id number] Director: Alpesh Yee M.D. Urine, bilirubin presence 0.5 mg/dL Invali d Interpretation Code 0.3 - 1.2 mg/dL [facility] Valproic Acidon 07-06-2017 Protein mass conc 86 mcg/mL Normal 50-100 [facility] Comment on above: Result Comment: Resu lt should be correlated with last dose as reflected in the medicalrecord. Performed By: #### V ALP, CMET ####Unless otherwise noted, all testing performed by [address] [phone]: [id number] Director: Alpesh Yee M.D. Valproic Acid Levelon 2016 Thyroid stimulating hormone (TSH) 86 mcg/mL Invalid Interpretation Code 50 - 100 [facility] CBC and Differentialon 03-21 Basophils #/vol (Bld) 0.0 K/mcL 0 - 0.2 [facility] Basophils/100 WBC (Bld) 0.5 % [facility] Eosinophils #/vol (Bld) 0.1 K/mcL 0 - 0.5 [facility] Eosinophils/100 WBC (Bld) 2.0 % [facility] Erythrocyte distribution width Ratio (RBC) 12.4 % 10 - 14.3 % [facility] Hematocrit Volume Fraction (Bld) 44.4 % 37.9 - 49.2 % [facility] Hemoglobin mass conc (Bld) 15.1 g/dL 12.9 - 16.9 g/dL [facility] Interpretation and review of laboratory results Abnormal [facility] Lymphocytes #/vol (Bld) 2.1 K/mcL 0.9 - 3.6 [facility] Lymphocytes/100 WBC (Bld) 45.7 % [facility] MCH Entitic mass (RBC) 31.9 pg 27.7 - 34.6 pg [facility] MCHC mass conc (RBC) 34.1 g/dL 32.9 - 35.5 g/dL [facility] MCV Entitic volume (RBC) 93.6 fL 82.8 - 99.3 [facility] Monocytes #/vol (Bld) 0.4 K/mcL 0.2 - 0.6 [facility] Monocytes/100 WBC (Bld) 9.8 % [facility] Neutrophils #/vol (Bld) 1.9 K/mcL 1.4 - 6.8 [facility] Platelet mean volume Entitic volume (Bld) 11 fL High 6.6 - 10.8 [facility] Platelets #/vol (Bld) 130 K/mcL Low 139 - 354 [facility] RBC #/vol (Bld) 4.75 M/mcL 4.0 - 5.5 [facility] Segmented Neut 42.0 % [facility] WBC #/vol (Bld) 4.5 K/mcL 3.6 - 10.4 [facility] Comprehensive Metabolic Pane omar 03-21-2017 Albumin mass conc 3.2 g/dL 3.2 - 5.2 g/dL [facility] ALP enzyme act/vol 62 U/L 40 - 150 U/L [facility] ALT enzyme act/vol 36 U/L 14 - 65 U/L [facility] Comment on above: This test result vj ht be falsely depressed or falsely elevated on samples drawn from patients taking Sulfasalazine and Sulfapyridine. Venipuncture should occur prior to taking either of these drugs. AST enzyme act/vol 23 U/L 0 - 45 U/L [facility] Comment on above: This test result vj ht be falsely depressed or falsely elevated on samples drawn from patients taking Sulfasalazine and Sulfapyridine. Venipuncture should occur prior to taking either of these drugs. Bilirubin mass conc 0.5 mg/dL 0.3 - 1. 2 mg/dL [facility] Calcium mass conc 8.9 mg/dL 8.4 - 10.2 mg/dL [facility] Chloride molar conc 108 mmol/L 98 - 108 mmol/L [facility] CO2 molar conc 29 mmol/L 21 - 32 mmol/L [facility] Creatinine mass conc 0.68 mg/dL 0.5 - 1 .3 mg/dL [facility] GFR/1.73 sq M predicted among blacks MDRD vol rate/area (S/P/Bld) mL/min/{1.73_m2} ml/min/1.73sq .m [facility] Comment on above: GFR Calc GFR/1.73 sq M predicted among non-blacks MDRD vol rate/area (S/P/Bld) mL/min/{1.73_m2} ml/min/1.73sq .m [facility] Comment on above: Non- GFR Calc eGFR is an estimated Glomerular Filtration Rate based on the value of the patient's serum creatinine. In outpatients, eGFR should be used as a helpful tool in screening for CKD. In inpatients or patients with acute renal failure, eGFR represents the GFR at the moment of the draw and should be used with caution. Glucose mass conc 80 mg/dL 70 - 99 mg/dL [facility] Comment on above: This test result vj ht be falsely depressed or falsely elevated on samples drawn from patients taking Sulfasalazine and Sulfapyridine. Venipuncture should occur prior to taking either of these drugs. Potassium molar conc 4.2 mmol/L 3.5 - 5 .1 mmol/L [facility] Protein mass conc 6.8 g/dL 6 - 8 g/dL [facility] Sodium molar conc 143 mmol/L 135 - 145 mmol/L [facility] Urea nitrogen mass conc 16 mg/dL 8 - 25 mg/dL [facility] Lipid Panelon 03-21-2017 Cholesterol in HDL mass conc 65 mg/dL High 40 - 59 mg/dL [facility] Cholesterol in LDL mass conc 61 mg/dL 10 - 150 mg/dL [facility] Cholesterol in VLDL mass conc 12 mg/dL 5 - 40 mg/dL [facility] Cholesterol mass conc 138 mg/dL 100 - 199 mg/dL [facility] Cholesterol.total/Cholest antoinette in HDL mass ratio 2.1 {ratio} Low 3.2 - 5.0 [facility] Comment on above: Male Coronary Heart Disease Risk Factor (CHDRF): Average risk= 5.0 1/2 Average risk= 3.4 2 times Average risk= 9.6 Triglyceride mass conc 60 mg/dL 25 - 120 mg/dL [facility] TSHon 03-21-2017 Thyrotropin Qn 1.24 uIU/mL 0.320 - 5.000 [facility] Valproic Acid Levelon 2016 Protein mass conc 71 mcg/mL 50 - 100 [facility] Comment on above: Result should be cor related with last dose as reflected in the medical record. Vital Signs Date Time Vital Sign Value Performing Clinician Facility 02-12-2025 15:04040 Body height 157.5 cm Prema Suzi DO Work Phone: [facility] 02-12-2025 15:04-0400 Body mass index (BMI) [Ratio] 20.94 kg/m2 Prema Suzi DO Work Phone: [facility] 02-12-2025 15:04-0400 Body weight 51.94 kg Prema Suzi DO Work Phone: [facility] 02-12-2025 15:04-0400 Diastolic blood pressure 79 mm[Hg] Prema Suzi DO Work Phone: [facility] Comment on above: Taken 7/21/25 at [facility] 02-12-2025 15:04-0400 Heart rate 80 /min Prema Archer DO Work Phone: [facility] 02-12-2025 15:04-0400 Respiratory rate 16 /min Prema Suzi DO Work Phone: [facility] 02-12-2025 15:04-0400 SaO2% (BldA) [Mass fraction] 93 % Prema Archer DO Work Phone: [facility] 02-12-2025 15:04-0400 Systolic blood pressure 101 mm[Hg] Prema Archer DO Work Phone: [facility] Comment on above: Taken 02/11/25 at [facility] 02-07-2025 11:28-0400 Body temperature 97.9 [degF] Dr. Prema Archer DO Work Phone: [facility] 02-07-2025 11:28-0400 Diastolic blood pressure 56 mm[Hg] Dr. Prema Archer DO Work Phone: [facility] 02-07-2025 11:28-0400 Heart rate 87 /min Dr. Prema Archer DO Work Phone: [facility] 02-07-2025 11:28-0400 Respiratory rate 18 /min Dr. Prema Archer DO Work Phone: [facility] 02-07-2025 11:28-0400 SaO2% (BldA) [Mass fraction] 93 % Dr. Prema Archer DO Work Phone: [facility] 02-07-2025 11:28-0400 Systolic blood pressure 101 mm[Hg] Dr. Prema Archer DO Work Phone: [facility] 02-07-2025 08:51-0400 Body height 152.[address] Prema Archer DO Work Phone: [facility] 02-07-2025 08:51-0400 Body mass index (BMI) [Ratio] 22.7 kg/m2 Dr. Prema Archer DO Work Phone: [facility] 02-07-2025 08:51-0400 Body weight 52.[address] Prema Archer DO Work Phone: [facility] 01-23-2025 10:49-0400 Body height 157.5 cm Prema Suzi DO Work Phone: [facility] 01-23-2025 10:49-0400 Body mass index (BMI) [Ratio] 19.88 kg/m2 Prema Suzi DO Work Phone: [facility] 01-23-2025 10:49-0400 Body weight 49.31 kg Prema Suzi DO Work Phone: [facility] 01-23-2025 10:49-0400 Heart rate 76 /min Prema Suzi DO Work Phone: [facility] 01-23-2025 10:49-0400 Respiratory rate 14 /min Prema Suzi DO Work Phone: [facility] 01-23-2025 10:49-0400 SaO2% (BldA) [Mass fraction] 98 % Prema Suzi DO Work Phone: [facility] 01-17-2025 07:33-0400 Body temperature 97.6 [degF] Dr. Prema Archer DO Work Phone: [facility] 01-17-2025 07:33-0400 Diastolic blood pressure 79 mm[Hg] Dr. Prema Archer DO Work Phone: [facility] 01-17-2025 07:33-0400 Heart rate 92 /min Dr. Prema Archer DO Work Phone: [facility] 01-17-2025 07:33-0400 Respiratory rate 17 /min Dr. Prema Archer DO Work Phone: [facility] 01-17-2025 07:33-0400 SaO2% (BldA) [Mass fraction] 98 % Dr. Prema Archer DO Work Phone: [facility] 01-17-2025 07:33-0400 Systolic blood pressure 110 mm[Hg] Dr. Prema Archer DO Work Phone: [facility] 01-17-2025 06:56-0400 Body height 152.[address] Prema Archer DO Work Phone: [facility] 01-17-2025 06:56-0400 Body mass index (BMI) [Ratio] 22.3 kg/m2 Dr. Prema Archer DO Work Phone: [facility] 01-17-2025 06:56-0400 Body weight 51.[address] Prema Archer DO Work Phone: [facility] 11-19-2024 13:21-0400 Diastolic blood pressure 78 mm[Hg] Mishel Shank [employer] Work Phone: [facility] Comment on above: manual 11-19-2024 13:21-0400 Systolic blood pressure 110 mm[Hg] Mishel Shank [employer] Work Phone: [facility] Comment on above: manual 11-19-2024 12:50-0400 Body height 157.5 cm Mishel Shank [employer] Work Phone: [facility] 11-19-2024 12:50-0400 Body mass index (BMI) [Ratio] 21.03 kg/m2 Mishel Shank [employer] Work Phone: [facility] 11-19-2024 12:50-0400 Body temperature 98.2 [degF] Mishel Shank [employer] Work Phone: [facility] 11-19-2024 12:50-0400 Body weight 52.16 kg Mishel Shank [employer] Work Phone: [facility] 11-19-2024 12:50-0400 Heart rate 66 /min Mishel Shank [employer] Work Phone: [facility] 11-19-2024 12:50-0400 Respiratory rate 18 /min Mishel Shank [employer] Work Phone: [facility] 11-19-2024 12:50-0400 SaO2% (BldA) [Mass fraction] 94 % Mishel Camara [employer] [facility] [facility] 08-28-2024 11:06-0500 Body height 157.5 cm Prema Suzi DO Work Phone: [facility] 08-28-2024 11:06-0500 Body mass index (BMI) [Ratio] 21.03 kg/m2 Prema Suzi DO Work Phone: [facility] 08-28-2024 11:06-0500 Body temperature 96.91 [degF] Prema Suzi DO Work Phone: [facility] 08-28-2024 11:06-0500 Body weight 52.16 kg Prema Suzi DO Work Phone: [facility] 08-28-2024 11:06-0500 Heart rate 78 /min Prema Suzi DO Work Phone: [facility] 08-28-2024 11:06-0500 Respiratory rate 17 /min Prema Suzi DO Work Phone: [facility] 08-28-2024 11:06-0500 SaO2% (BldA) [Mass fraction] 94 % Prema Suzi DO Work Phone: [facility] 08-24-2024 10:50-0500 Diastolic blood pressure 62 mm[Hg] Sholom-Dc Chernyak DO Work Phone: [facility] 08-24-2024 10:50-0500 Heart rate 92 /min Sholom-Dc Chernyak DO Work Phone: [facility] 08-24-2024 10:50-0500 SaO2% (BldA) [Mass fraction] 92 % Sholom-Dc Chernyak DO Work Phone: [facility] 08-24-2024 10:50-0500 Systolic blood pressure 106 mm[Hg] Sholom-Dc Chernyak DO Work Phone: [facility] 06-27-2024 15:13-0500 Body temperature 98.49 [degF] Mary Padgett MD Work Phone: [facility] 06-27-2024 15:13-0500 Heart rate 86 /min Mray Padgett MD Work Phone: [facility] 06-27-2024 15:13-0500 SaO2% (BldA) [Mass fraction] 96 % Mary Padgett MD Work Phone: [facility] 06-27-2024 12:14-0500 Diastolic blood pressure 78 mm[Hg] Mary Padgett MD Work Phone: [facility] 06-27-2024 12:14-0500 Respiratory rate 14 /min Mary Padgett MD Work Phone: [facility] 06-27-2024 12:14-0500 Systolic blood pressure 118 mm[Hg] Mary Padgett MD Work Phone: [facility] 06-27-2024 05:45-0500 Body mass index (BMI) [Ratio] 20.89 kg/m2 Mary Padgett MD Work Phone: [facility] 06-27-2024 05:45-0500 Body weight 51.8 kg Mray Padgett MD Work Phone: [facility] 06-20-2024 11:41-0500 Body height 157.5 cm Mary Padgett MD Work Phone: [facility] 06-20-2024 01:06-0500 Diastolic blood pressure 58 mm[Hg] Twila Santos DO Work Phone: [facility] 06-20-2024 01:06-0500 Heart rate 107 /min Twila Santos DO Work Phone: [facility] 06-20-2024 01:06-0500 Respiratory rate 16 /min Twila Santos DO Work Phone: [facility] 06-20-2024 01:06-0500 SaO2% (BldA) [Mass fraction] 94 % Twila Santos DO Work Phone: 9(603)[phone] [place] [address] 06-20-2024 01:06-0500 Systolic blood pressure 154 mm[Hg] Twila Santos DO Work Phone: [facility] 06-19-2024 21:41-0500 Body mass index (BMI) [Ratio] 20.88 kg/m2 Twila Santos DO Work Phone: [facility] 06-19-2024 21:41-0500 Body temperature 97.39 [degF] Twila Santos DO Work Phone: [facility] 06-19-2024 21:41-0500 Body weight 51.8 kg Twila Santos DO Work Phone: [facility] 06-18-2024 09:14-0500 Diastolic blood pressure 112 mm[Hg] [address] Comment on above: Excessive moving unable to get accurate b/p 06-18-2024 09:14-0500 Heart rate 77 /min [address] 06-18-2024 09:14-0500 Respiratory rate 18 /min [address] 06-18-2024 09:14-0500 SaO2% (BldA) [Mass fraction] 99 % [address] 06-18-2024 09:14-0500 Systolic blood pressure 145 mm[Hg] [address] Comment on above: Excessive moving unable to get accurate b/p 06-18-2024 08:55-0500 Body temperature 96.4 [degF] [address] 06-18-2024 06:27-0500 Body height 157.[address] 06-18-2024 06:27-0500 Body mass index (BMI) [Ratio] 20.66 kg/m2 [address] 06-18-2024 06:27-0500 Body weight 51.[address] 06-13-2024 14:22-0500 Body height 157.5 cm May Haines DO Work Phone: [facility] 06-13-2024 14:22-0500 Body mass index (BMI) [Ratio] 20.67 kg/m2 May Oberhauser DO Work Phone: [facility] 06-13-2024 14:22-0500 Body weight 51.26 kg May Oberhauser DO Work Phone: [facility] 06-13-2024 14:22-0500 Diastolic blood pressure 85 mm[Hg] May Oberhauser DO Work Phone: 0(805)283-947069 [place] [address] 06-13-2024 14:22-0500 Heart rate 71 /min May Oberhauser DO Work Phone: 0(218)634-777569 [place] [address] 06-13-2024 14:22-0500 Systolic blood pressure 136 mm[Hg] May Oberhauser DO Work Phone: 4(538)094-567469 [place] [address] 04-23-2024 13:25-0400 Body height 157.5 cm May Oberhauser DO Work Phone: 3(200)[phone] [address] 04-23-2024 13:25-0400 Body mass index (BMI) [Ratio] 20.67 kg/m2 May Oberhauser DO Work Phone: 4(645)601-228269 [place] [address] 04-23-2024 13:25-0400 Body weight 51.26 kg May Oberhauser DO Work Phone: 1(425)490-769969 [place] [address] 04-23-2024 13:25-0400 Diastolic blood pressure 74 mm[Hg] May Oberhauser DO Work Phone: [facility] 04-23-2024 13:25-0400 Heart rate 89 /min May Oberhauser DO Work Phone: 8(201)314-209069 [place] [address] 04-23-2024 13:25-0400 Systolic blood pressure 117 mm[Hg] May Oberhauser DO Work Phone: 9(050)531-112569 [place] [address] 03-05-2024 12:43-0400 Body temperature 98.8 [degF] [address] 12-16-2023 10:49-0400 Body height 157.5 cm May Oberhauser DO Work Phone: [facility] 12-16-2023 10:49-0400 Body mass index (BMI) [Ratio] 20.12 kg/m2 May Oberhauser DO Work Phone: [facility] 12-16-2023 10:49-0400 Body weight 49.9 kg May Oberhauser DO Work Phone: [facility] 12-16-2023 10:49-0400 Diastolic blood pressure 77 mm[Hg] May Oberhauser DO Work Phone: [facility] 12-16-2023 10:49-0400 Heart rate 87 /min May Oberhauser DO Work Phone: [facility] 12-16-2023 10:49-0400 Systolic blood pressure 110 mm[Hg] May Oberhauser DO Work Phone: [facility] 06-20-2023 13:08-0500 Body height 157.5 cm May Oberhauser DO Work Phone: [facility] Comment on above: Wheelchair bound 06-20-2023 13:08-0500 Body mass index (BMI) [Ratio] 19.57 kg/m2 May Oberhauser DO Work Phone: [facility] 06-20-2023 13:08-0500 Body weight 48.53 kg May Oberhauser DO Work Phone: [facility] 06-20-2023 13:08-0500 Diastolic blood pressure 86 mm[Hg] May Oberhauser DO Work Phone: [facility] 06-20-2023 13:08-0500 Heart rate 89 /min May Oberhauser DO Work Phone: [facility] 06-20-2023 13:08-0500 Systolic blood pressure 121 mm[Hg] May Oberhauser DO Work Phone: [facility] Encounters Encounter Date Encounter Type Care Provider Facility Start: 04-30-2025 End: 04-30-2025 ambulatory PREMA ARCHER [facility] Start: 04-12-2025 End: 04-15-2025 Refill Prema Archer DO Work Phone: [facility] Comment on above: Constipation, unspec ified constipation type Start: 03-20-2025 End: 03-20-2025 Documentation procedure Prema Archer DO Work Phone: [facility] Start: 03-20-2025 ambulatory PREMA ARCHER [facility] Start: 02-12-2025 End: 02-12-2025 Office outpatient visit 25 minutes Prema Archer DO Work Phone: [facility] Comment on above: Constipation, unspec ified constipation type Start: 02-12-2025 End: 02-12-2025 ambulatory PREMA ARCHER [facility] Start: 02-07-2025 End: 02-07-2025 Emergency department patient visit Dr. Prema Archer DO Work Phone: -Emergency Department Work Phone: Start: 01-23-2025 End: 01-23-2025 ambulatory PREMA ARCHER [facility] Start: 01-23-2025 End: 01-23-2025 Office outpatient visit 25 minutes Prema Archer DO Work Phone: [facility] Comment on above: Hearing loss of righ t ear due to cerumen impaction (Primary Dx); Irritation around percutaneous endoscopic gastrostomy (PEG) tube site (HCC); Spastic quadriplegic cerebral palsy (HCC) Start: 01-17-2025 End: 01-17-2025 Emergency department patient visit Dr. Prema Archer DO Work Phone: -Emergency Department Work Phone: Start: 01-02-2025 ambulatory PREMA ARCHER [facility] Start: 11-29-2024 End: 11-29-2024 Orders Only Prema Archer DO Work Phone: [facility] Start: 11-28-2024 End: 11-28-2024 Chart abstracting Prema Archer DO Work Phone: [facility] Start: 11-25-2024 End: 01-25-2025 Follow-up encounter Prema Archer DO Work Phone: [facility] Comment on above: MTB SCREEN Start: 11-20-2024 End: 01-20-2025 Follow-up encounter Mishel Camara [employer] Work Phone: [facility] Comment on above: XR Chest AP/PA and L AT Start: 11-19-2024 End: 11-19-2024 Office outpatient visit 25 minutes Mishel Camara [employer] Work Phone: [facility] Comment on above: Cough, unspecified t ype (Primary Dx); Spastic diplegic cerebral palsy (HCC); Dysphagia, oropharyngeal phase Start: 11-19-2024 End: 11-19-2024 ambulatory PREMA MckennaUlises KRUEGERM [facility] Start: 11-19-2024 End: 11-19-2024 ambulatory PREMA ARCHER [facility] Start: 11-08-2024 End: 11-08-2024 Orders Only Prema Archer DO Work Phone: [facility] Comment on above: Tuberculosis screeni ng (Primary Dx) Start: 11-07-2024 End: 11-07-2024 Patient encounter procedure Stephen Ortega OD Work Phone: Optometry Comment on above: 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); Vitreous floaters of both eyes; Alternating exotropia; High myopia, bilateral Start: 11-07-2024 End: 11-07-2024 ambulatory STEPHEN ORTEGA II Facility:[facility] Start: 11-06-2024 ambulatory PREMA Asad ARCHER [facility] Start: 11-05-2024 ambulatory PREMA Asad ARCHER [facility] Start: 11-01-2024 End: 11-01-2024 Orders Only Prema Archer DO Work Phone: [facility] Start: 10-25-2024 End: 10-25-2024 Documentation procedure Prema Archer DO Work Phone: [facility] Comment on above: [facility] [place] Start: 09-21-2024 End: 09-22-2024 Refill Prema Asad Archer DO Work Phone: [facility] Start: 09-20-2024 ambulatory PREMA ARCHER [facility] Start: 08-28-2024 End: 08-28-2024 Office outpatient new 45 minutes Prema Asad Archer DO Work Phone: [facility] Comment on above: Dysphagia, oropharyn geal phase (Primary Dx); Constipation, unspecified constipation type; Environmental allergies; Gastroesophageal reflux disease, unspecified whether esophagitis present; Status post gastrostomy (HCC); Profound intellectual disability; Spastic diplegic cerebral palsy (HCC) Start: 08-28-2024 End: 08-28-2024 ambulatory PREMA ARCHER [facility] Start: 08-24-2024 End: 08-24-2024 ambulatory CRUZITO DOE [facility] Start: 08-24-2024 End: 08-24-2024 Postop follow up visit related to original px Niraj Garcia DO Work Phone: [facility] Comment on above: Gastrostomy complica tion (HCC) (Primary Dx); Cerebral palsy, unspecified type (HCC) Start: 07-26-2024 End: 07-27-2024 Patient encounter procedure Aida Goel Work Phone: [facility] Start: 07-26-2024 End: 07-27-2024 Progress Note Aida Goel Work Phone: [facility] Start: 07-17-2024 End: 07-17-2024 Emergency department patient visit CRUZITO DOE [facility] Start: 06-28-2024 End: 06-29-2024 Patient encounter procedure Aida Goren Work Phone: [facility] Start: 06-28-2024 End: 06-29-2024 Progress Note Aida Goren Work Phone: [facility] Start: 06-20-2024 End: 06-27-2024 Evaluation and management of inpatient [facility] Work Phone: [facility] Start: 06-20-2024 End: 06-20-2024 Emergency department patient visit CRUZITO ANGULO [facility] Start: 06-19-2024 End: 06-20-2024 Emergency department patient visit Twila Santos DO Work Phone: [facility] Comment on above: Failure to introduce or to remove other tube or instrument (Primary Dx) Start: 06-18-2024 End: 06-19-2024 Patient encounter procedure Aida Goren Work Phone: [facility] Start: 06-18-2024 End: 06-19-2024 Progress Note Aida Goren Work Phone: [facility] Start: 06-18-2024 End: 06-18-2024 Subsequent hospital visit by physician Bakari Mitchell DO Work Phone: [facility] [place] Comment on above: Dysphagia, oropharyn geal phase Start: 06-18-2024 End: 06-18-2024 ambulatory BAKARI MITCHELL [facility] Start: 06-13-2024 End: 06-13-2024 ambulatory [facility] Start: 06-13-2024 End: 06-13-2024 Office outpatient visit 15 minutes May Haines DO Work Phone: [facility] Comment on above: Rash (Primary Dx) Start: 04-23-2024 End: 04-23-2024 ambulatory [facility] Start: 04-23-2024 End: 04-23-2024 Office outpatient visit 15 minutes May Haines DO Work Phone: [facility] Comment on above: Spastic quadriplegic cerebral palsy (Multi) (Primary Dx); Seizure disorder (Multi); Dysphagia, oropharyngeal phase Start: 03-30-2024 End: 03-30-2024 Subsequent hospital visit by physician Roger X-Ray Fluoro 1 [facility] Comment on above: Dysphagia, oropharyn geal phase (Primary Dx); Pulmonary aspiration, initial encounter; Spastic quadriplegic cerebral palsy (Multi) Start: 03-30-2024 End: 03-30-2024 ambulatory [facility] Start: 03-05-2024 End: 03-05-2024 Subsequent hospital visit by physician Bakari Mitchell DO Work Phone: [facility] [place] Comment on above: Dysphagia, unspecifi ed type Start: 03-05-2024 End: 03-05-2024 ambulatory [facility] Start: 02-14-2024 End: 02-14-2024 ambulatory [facility] Start: 02-03-2024 End: 02-03-2024 ambulatory [facility] Start: 12-21-2023 End: 12-21-2023 ambulatory [facility] Start: 12-21-2023 End: 12-21-2023 Subsequent hospital visit by physician Roger X-Ray 1 [facility] Comment on above: Acute cough Start: 12-16-2023 End: 12-16-2023 ambulatory [facility] Start: 12-16-2023 End: 12-16-2023 Office outpatient visit 25 minutes May Palomareser DO Work Phone: [facility] Comment on above: Acute cough (Primary Dx); Esophageal dysphagia; Spastic quadriplegic cerebral palsy (Multi); Profound intellectual disability Start: 12-13-2023 End: 12-13-2023 ambulatory [facility] Start: 12-13-2023 End: 12-13-2023 Encounter for general adult medical examination without abnormal findings MAY HAINES [facility] Start: 10-27-2023 End: 10-27-2023 Patient encounter procedure Stephen Ortega OD Work Phone: Optometry Comment on above: 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; Alternating exotropia Start: 04-06-2021 End: 04-06-2021 ambulatory CRUZITO [facility] Start: 02-05-2021 End: 02-05-2021 ambulatory NEVILLE DOUGLAS Facility:[facility] Start: 01-14-2021 ambulatory SILVIA ABAD Facili ty:[facility] Start: 01-14-2021 ambulatory SILVIA ABAD Facili ty:[facility] Start: 11-20-2018 End: 11-20-2018 Patient encounter procedure Cruzito Doe Work Phone: [facility] Comment on above: Dysphagia, unspecifi ed type Start: 04-14-2018 Patient encounter Cruzito Doe Fa cility:[facility] Start: 04-14-2018 End: 04-14-2018 Patient encounter Cruzito Doe Work Phone: [facility] Start: 01-05-2018 Patient encounter Cruzito Back cility:[facility] Start: 11-10-2017 End: 11-10-2017 Ambulatory Cruzito Doe Work Phone: [facility] Start: 07-06-2017 Patient encounter Cruzito Back cility:[facility] Start: 07-06-2017 End: 07-06-2017 Ambulatory Cruzito Doe Work Phone: [facility] Start: 03-21-2017 End: 03-21-2017 Patient encounter procedure Cruzito Doe Work Phone: [facility] Procedures Date Procedure Procedure Detail Performing Clinician Start: 02-07-[address] Prema Archer DO Work Phone: Start: 02-07-2025 Computed tomography of abdomen and pelvis with intravenous contrast Dr. Prema Archer DO Work Phone: Start: 01-17-2025 Plain X-ray abdomen Dr. Prema Archer DO Work Phone: Start: 06-27-2024 H/O: gastrostomy Status post gastrostomy Prema Archer DO Work Phone: Start: 06-27-2024 Glucose measurement Mary Padgett MD Work Phone: Start: 06-27-2024 Glucose measurement Generic [facility] Work Phone: Start: 06-27-2024 Basic metabolic panel calcium total Amira Sawyer [facility],PharmD Start: 06-27-2024 Glucose measurement [facility] Work Phone: Start: 06-26-2024 Glucose measurement [facility] Work Phone: Start: 06-26-2024 Glucose measurement [facility] Work Phone: Start: 06-26-2024 Glucose measurement [facility] Work Phone: Start: 06-26-2024 Glucose measurement [facility] Work Phone: Start: 06-26-2024 Basic metabolic panel calcium total Amira Silverio RPh,PharmD Start: 06-26-2024 Glucose measurement [facility] Work Phone: Start: 06-26-2024 Blood count complete automated Mundo Card MD Work Phone: Start: 06-26-2024 Glucose measurement [facility] Work Phone: Start: 06-25-2024 Glucose measurement [facility] Work Phone: Start: 06-25-2024 Blood count complete automated Mundo Card MD Work Phone: Start: 06-25-2024 Glucose measurement [facility] Work Phone: Start: 06-25-2024 Blood count complete automated Mundo Card MD Work Phone: Start: 06-25-2024 Glucose measurement [facility] Work Phone: Start: 06-25-2024 Radiologic exam upr gi trc single contrast study FredismJenae Garcia DO Work Phone: Start: 06-25-2024 Glucose measurement [facility] Work Phone: Start: 06-25-2024 Blood count complete automated Mundo Card MD Work Phone: Start: 06-25-2024 Glucose measurement [facility] Work Phone: Start: 06-25-2024 Comprehensive metabolic panel Renetta Ornelas RP,PharmD Work Phone: Start: 06-25-2024 Blood count complete automated Mundo Card MD Work Phone: Start: 06-24-2024 Glucose measurement [facility] Work Phone: Start: 06-24-2024 Blood count complete automated Mundo Card MD Work Phone: Start: 06-24-2024 Glucose measurement [facility] Work Phone: Start: 06-24-2024 Glucose measurement [facility] Work Phone: Start: 06-24-2024 Potassium serum plasma/whole blood Adalgisa Voss MD Work Phone: Start: 06-24-2024 Glucose measurement [facility] Work Phone: Start: 06-24-2024 Glucose measurement [facility] Work Phone: Start: 06-24-2024 Basic metabolic panel calcium total Renetta Ornelas RPh,PharmD Work Phone: Start: 06-24-2024 Glucose measurement [facility] Work Phone: Start: 06-23-2024 End: 06-23-2024 Glucose measurement [facility] Work Phone: Start: 06-23-2024 Assay of magnesium Adalgisa Voss MD Work Phone: Start: 06-23-2024 Glucose measurement [facility] Work Phone: Start: 06-23-2024 Glucose measurement [facility] Work Phone: Start: 06-23-2024 Basic metabolic panel calcium total Sholom-Dc Chernyak DO Work Phone: Start: 06-23-2024 Glucose measurement [facility] Work Phone: Start: 06-23-2024 Glucose measurement [facility] Work Phone: Start: 06-22-2024 Glucose measurement [facility] Work Phone: Start: 06-22-2024 Basic metabolic panel calcium total Renetta Ornelas RPh,PharmD Work Phone: Start: 06-22-2024 Glucose measurement [facility] Work Phone: Start: 06-22-2024 Blood count complete automated Mundo Card MD Work Phone: Start: 06-22-2024 Glucose measurement [facility] Work Phone: Start: 06-22-2024 Blood count complete automated Mundo Card MD Work Phone: Start: 06-22-2024 End: 06-22-2024 Glucose measurement [facility] Work Phone: Start: 06-22-2024 Comprehensive metabolic panel Renetta Ornelas [facility],PharmD Work Phone: Start: 06-22-2024 Calcium ionized Renetta Ornelas RP,Pharm D Work Phone: Start: 06-22-2024 Glucose measurement [facility] Work Phone: Start: 06-21-2024 Glucose measurement [facility] Work Phone: Start: 06-21-2024 Glucose measurement [facility] Work Phone: Start: 06-21-2024 Blood count complete automated Mundo Card MD Work Phone: Start: 06-21-2024 Glucose measurement [facility] Work Phone: Start: 06-21-2024 Blood count complete automated Mundo Card MD Work Phone: Start: 06-21-2024 Glucose measurement [facility] Work Phone: Start: 06-21-2024 Glucose measurement [facility] Work Phone: Start: 06-21-2024 Assay of phosphorus inorganic Magnolia Hui Delgado [employer] Work Phone: Start: 06-21-2024 Blood count complete automated Mundo Card MD Work Phone: Start: 06-21-2024 Basic metabolic panel calcium total Magnolia Delgado [employer] Work Phone: Start: 06-20-2024 End: 06-21-2024 Basic metabolic panel calcium total Mundo Card MD Work Phone: Start: 06-20-2024 Glucose measurement Generic [facility] Work Phone: Start: 06-20-2024 [facility] Work Phone: Start: 06-20-2024 Culture bacterial quanttative colony count urine Mundo Card MD Work Phone: Start: 06-20-2024 Glucose measurement Generic [facility] Work Phone: Start: 06-20-2024 Blood group typing Mundo rodas MD Work Phone: Start: 06-20-2024 End: 06-20-2024 Exploratory laparotomy celiotomy w/wo biopsy spx [facility] Garcia DO Work Phone: Start: 06-20-2024 Ct abdomen & pelvis w/contrast material Leyda Ornelas [facility] Work Phone: Start: 06-20-2024 Radiologic exam chest single view Mundo Card MD Work Phone: Start: 06-20-2024 Radiologic exam abdomen 1 view Leyda Ornelas [facility] Work Phone: Start: 06-20-2024 Influenza virus A and B RNA and SARS-CoV-2 (COVID-19) N gene panel - Respiratory specimen by DALIA with probe detection Mundo Card MD Work Phone: Start: 06-20-2024 Polymerase chain reaction analysis Mundo Card MD Work Phone: Start: 06-20-2024 Comprehensive metabolic panel Mundo Card MD Work Phone: Start: 06-20-2024 End: 06-20-2024 Culture bacterial blood aerobic w/id isolates Mundo Card MD Work Phone: Start: 06-20-2024 Hepatic function panel Mundo clifford MD Work Phone: Start: 06-19-2024 Radiologic exam abdomen 1 view Twila Santos DO Work Phone: Start: 06-18-2024 Egd percutaneous placement gastrostomy tube Bakari Mitchell DO Work Phone: Start: 06-14-2024 SCAN OTHER ORDERS Chang Zamorano DO Work Phone: Start: 03-30-2024 Radiologic exam swallow function contrast study Bakari Arandadorothy DO Work Phone: Start: 12-21-2023 Radiologic exam chest 2 views May L Oberhauser DO Work Phone: Start: 12-13-2023 Lipid 1996 panel - Serum or Plasma May Oberhauser DO Work Phone: Start: 04-13-2022 Lipid 1996 panel - Serum or Plasma May Oberhauser DO Work Phone: Start: 11-20-2018 Videofluoroscopy swallow External Transc ribed Start: 04-14-2018 End: 04-14-2018 Assay of ammonia Cruzito Doe Work Phone: Start: 04-14-2018 End: 04-14-2018 Assay of magnesium Cruzito Doe Work Phone: Start: 04-14-2018 End: 04-14-2018 Assay of thyroid stimulating hormone tsh Cruzito Doe Work Phone: Start: 04-14-2018 End: 04-14-2018 Blood count complete auto&auto difrntl wbc Cruzito Doe Work Phone: Start: 04-14-2018 End: 04-14-2018 Comprehensive metabolic 2000 panel - Serum or Plasma Cruzito Doe Work Phone: Start: 04-14-2018 End: 04-14-2018 Drug assay valproic dipropylacetic acid total Cruzito Doe Work Phone: Start: 04-14-2018 End: 04-14-2018 Lipid panel Cruzito Doe Work Phone: H/O: gastrostomy Status post gastrostomy (HCC) Prema Archer DO Work Phone: Plan of Treatment Date Care Activity Detail Author Start: 11-25-2030 DTaP/Tdap/Td Vaccines (2 - Td or Tdap) DTaP/Tdap/Td Vaccines (2 - Td or Tdap) [facility] Start: 11-25-2030 Tetanus vaccination Tetanus: Every 10yrs [facility] Start: 11-25-2030 Urine microalbumin profile DTaP,Tdap,Td Vaccine (2 - Td or Tdap) [facility] Start: 12-12-2028 Lipid panel [facility] Start: 07-19-2027 Diabetes Screening Diabetes Screening [facility] Start: 04-13-2027 Lipid panel [facility] Start: 04-13-2027 LIPID SCREEN LIPID SCREEN [facility] Start: 02-20-2027 Screening for malignant neoplasm of colon [facility] Start: 11-13-2025 End: 11-13-2025 Patient encounter procedure 11/13/2025 9:30 AM EDT Office Visit [facility] [address] [place] [address] Stephen Ortega II, OD [address] [place] [address] Eye exam Medicare/Medicaid Optometry Comment on above: Eye exam Medicare/Medicaid Start: 04-30-2025 End: 04-30-2025 Patient encounter procedure 04/30/2025 12:40 PM EDT Office Visit [facility] [address] [place] [phone] Prema Archer DO [address] [address] [facility] Start: 04-25-2025 End: 04-25-2025 Patient encounter procedure 04/25/2025 12:40 PM EDT Office Visit [facility] [address] [place] [address] Prema Archer DO [address] [address] [facility] Start: 04-13-2025 DIABETES SCREEN DIABETES SCREEN [facility] Start: 04-13-2025 Diabetes Screening Diabetes Screening [facility] Start: 03-25-2025 Influenza vaccination Influenza Vaccine (#1) [facility] Start: 02-21-2025 End: 02-21-2025 Patient encounter procedure 02/21/2025 10:40 AM EDT Office Visit [facility] [address] [place] [address] Prema Archer DO [address] [address] [facility] Start: 02-07-2025 [facility] Start: 01-23-2025 End: 01-23-2025 Patient encounter procedure 01/23/2025 10:40 AM EDT Office Visit [facility] [address] [place] [address] Prema Archer DO [address] [address] [facility] Start: 10-22-2024 End: 10-22-2024 Patient encounter procedure 10/22/2024 2:00 PM EDT Office Visit [facility] [address] [place] [phone] May Haines DO [address] [facility] [place] [address] [facility] Start: 08-28-2024 End: 08-28-2024 Patient encounter procedure 08/28/2024 11:00 AM EST Office Visit [facility] [address] [place] [address] Prema Archer, DO [address] [address] [facility] Start: 06-25-2024 End: 06-25-2024 Patient encounter procedure 06/25/2024 10:00 AM EST Office Visit [facility] [address] [phone] May Haines, DO [address] [facility] [place] [address] [facility] Start: 06-21-2024 Prostate specific antigen measurement PSA Prostate Cancer Screening [facility] Start: 06-18-2024 End: 06-18-2024 Patient encounter procedure 06/18/2024 7:00 AM EST Appointment [facility] [place] [address] [place] [phone] Bakari Mitchell, DO [address] [facility], [place] [phone] Cruzito Sultana, DO [address] [place] [phone] [facility] [place] Start: 06-12-2024 End: 06-12-2024 Anesthesia consultation 06/12/2024 11:59 PM EST Anesthesia Event [facility] [place] [address] [place] [phone] Cruzito Sultana, DO [address] [place] [address] [facility] [place] Start: 04-23-2024 End: 04-23-2024 Patient encounter procedure 04/23/2024 1:20 PM EDT Office Visit [facility] [address] [facility] [address] [place] [address] May Haines, DO [address] [facility] [place] [address] [facility] Start: 03-25-2024 Covid-19 Vaccine ( season) Covid-19 Vaccine () [facility] Start: 03-25-2024 Influenza vaccination Influenza Vaccine (#1) [facility] Start: 03-05-2024 End: 03-05-2024 Patient encounter procedure 03/05/2024 1:00 PM EDT Appointment [facility] [place] [address] [place] [phone] Bakari Mitchell, DO [address] [facility] [address] [place] [address] [facility] [place] Start: 12-16-2023 End: 12-15-2024 XR Chest 2 Views XR chest 2 views Imaging Routine Acute cough Expected: 12/16/2023, Expires: 12/15/2024 [facility] Service Area Work Phone: Comment on above: Expected: 12/16/2023, Expires: Start: 12-13-2023 Screening for malignant neoplasm of colon [facility] Start: 07-25-2023 Behavioral Health Screening Behavioral Health Screening [facility] Start: 07-07-2023 COVID-19 Vaccine (5 - Pfizer series) COVID-19 Vaccine (5 - Pfizer series) [facility] Start: 07-07-2023 Zoster Vaccines (2 of 2) Zoster Vaccines (2 of 2) [facility] Start: 06-20-2023 End: 06-20-2024 Comprehensive metabolic 2000 panel - Serum or Plasma Comprehensive Metabolic Panel Lab Routine Wellness examination Expected: 06/20/2023 (Approximate), Expires: 06/20/2024 [facility] Service Area Work Phone: Comment on above: Expected: 06/20/2023 (Approximate), Expi res: 06/20/2024 Start: 06-20-2023 End: 06-20-2024 Lipid 1996 panel - Serum or Plasma Lipid Panel Lab Routine Screening for lipid disorders Expected: 06/20/2023 (Approximate), Expires: 06/20/2024 [facility] Work Phone: Comment on above: Expected: 06/20/2023 (Approximate), Expi res: 06/20/2024 Start: 06-20-2023 End: 06-20-2024 TSH with reflex to Free T4 if abnormal TSH with reflex to Free T4 if abnormal Lab Routine Screening for thyroid disorder Expected: 06/20/2023 (Approximate), Expires: 06/20/2024 [facility] Work Phone: Comment on above: Expected: 06/20/2023 (Approximate), Expi res: 06/20/2024 Start: 06-20-2023 End: 06-20-2024 Valproate [Mass/volume] in Serum or Plasma Valproic Acid Lab Routine Seizure disorder (CMS/HCC) Expected: 06/20/2023 (Approximate), Expires: 06/20/2024 [facility] Work Phone: Comment on above: Expected: 06/20/2023 (Approximate), Expi res: 06/20/2024 Start: 04-20-2023 Medicare Annual Wellness Visit Medicare Annual Wellness Visit (AWV) [facility] Start: 07-25-2022 DEPRESSION ASSESSMENT DEPRESSION ASSESSMENT [facility] Start: 03-25-2022 Influenza vaccination INFLUENZA (#1) [facility] Start: 07-06-2021 COVID-19 VACCINE (4 - Booster for Pfizer series) COVID-19 VACCINE (4 - Booster for Pfizer series) [facility] Start: 2020 Pneumococcal vaccination Pneumococcal Vaccine (1 of 1 - PCV) [facility] Start: 2020 Pneumococcal Vaccine: 50+ (1 of 1 - PCV) Pneumococcal Vaccine: 50+ (1 of 1 - PCV) [facility] Start: 2020 Pneumococcal Vaccine: Age 50+ (1 of 1 - PCV) Pneumococcal Vaccine: Age 50+ (1 of 1 - PCV) [facility] Start: 2020 Screening for malignant neoplasm of colon Flexible sigmoidoscopy [facility] Start: 2020 SHINGRIX VACCINE (1 of 2) SHINGRIX VACCINE (1 of 2) [facility] Start: 03-25-2018 Influenza vaccination given SEQUENTIAL INFLUENZA VACCINE (#1) [facility] Start: 11-24-2015 COLOGUARD (FIT-DNA) COLOGUARD (FIT-DNA) [facility] Start: 11-24-2015 Colonoscopy COLONOSCOPY [facility] Start: 11-24-2015 COLORECTAL CANCER SCREENING COLORECTAL CANCER SCREENING [facility] Start: 11-24-[address] COLONOGRAPHY [facility] Start: 11-24-2015 FECAL OCCULT BLOOD FECAL OCCULT BLOOD [facility] Start: 11-24-2015 Screening for malignant neoplasm of colon [facility] Start: 11-24-2015 SIGMOIDOSCOPY SIGMOIDOSCOPY [facility] Start: 07-17-2009 MMR Vaccines (1 of 1 - Standard series) MMR Vaccines (1 of 1 - Standard series) [facility] Start: 1989 Hepatitis B Vaccine (1 of 3 - 19+ 3-dose series) Hepatitis B Vaccine (1 of 3 - 19+ 3-dose series) [facility] Start: 1989 Hepatitis B Vaccines (1 of 3 - 19+ 3-dose series) Hepatitis B Vaccines (1 of 3 - 19+ 3-dose series) [facility] Start: 1989 Urine microalbumin profile DTAP,TDAP,TD (1 - Tdap) [facility] Start: 1988 Anxiety Screening Anxiety Screening [facility] Start: 1988 Depression Screening Depression Screening [facility] Start: 1988 HEPATITIS C SCREENING HEPATITIS C SCREENING [facility] Start: 1988 Hepatitis C screening Hepatitis C Screening [facility] Start: 1988 HIV SCREENING HIV SCREENING [facility] Start: 1988 HIV screening HIV Screening [facility] Start: 1985 HIV screening HIV Screening [facility] Start: 1982 Depression screening using PHQ-9 (Patient Health Questionnaire 9) score Depression Screening/Follow-Up (PHQ-2/9) [facility] Start: 1973 History and physical examination, annual for health maintenance Wellness Visit [facility] Start: 1973 Medicare Wellness Visit Medicare Wellness Visit [facility] Start: 11-24-1971 MMR Vaccines (1 of 1 - Standard series) MMR Vaccines (1 of 1 - Standard series) [facility] Start: 1970 HEPATITIS B (1 of 3 - 3-dose series) HEPATITIS B (1 of 3 - 3-dose series) [facility] Start: 1970 Hepatitis B Vaccines (1 of 3 - 3-dose series) Hepatitis B Vaccines (1 of 3 - 3-dose series) [facility] Start: 1970 HIV screening HIV Screening [facility] Start: 1970 Medicare Annual Wellness Visit Medicare Annual Wellness Visit (AWV) [facility] Start: 1970 Prostate specific antigen measurement PSA Level [facility] Start: 1970 Screening for malignant neoplasm of colon [facility] Start: 1970 Tetanus vaccination TETANUS EVERY 10 YR [facility] End: 06-18-2024 Continuous Pulse oximetry, In Phase 1 Continuous Pulse oximetry, In Phase 1 Respiratory Care Routine Continuous until discontinued starting 06/18/2024 [facility] Service Area Work Phone: Comment on above: Continuous until discontinued starting 1 08/18/2023 End: 01-23-2026 Ear cerum removal Ear cerum removal Procedures Routine Hearing loss of right ear due to cerumen impaction 1 Occurrences starting 01/23/2025 until 01/23/2026 [facility] Work Phone: Comment on above: 1 Occurrences starting 01/23/2025 until 01/23/2026 End: 03-05-2024 Esophagogastroduodenoscopy [facility] Service Area Work Phone: Comment on above: Once for 1 Occurrences starting 03/05/20 24 until 03/05/2024 Glucose [Mass/volume ] in Serum or Plasma POCT Glucose Point of Care Testing - Docked Device Routine As needed (Lab) until discontinued starting 03/05/2024 [facility] Service Area Work Phone: Comment on above: As needed (Lab) until discontinued start ing 03/05/2024 End: 04-17-2026 MTB SCREEN MTB SCREEN Lab Routine Tuberculosis screening 1 Occurrences starting 11/08/2024 until 11/08/2025 [facility] Work Phone: Comment on above: 1 Occurrences starting 11/08/2024 until 11/08/2025 Patient Education Feeding Tube [facility] Work Phone: Patient referral [facility] Work Phone: End: 03-05-2024 RF videography Hypopharynx and Esophagus Views for swallowing function W speech and W barium contrast PO FL modified barium swallow study Imaging Routine Once for 1 Occurrences starting 03/05/2024 until 03/05/2024 [facility] Work Phone: Comment on above: Once for 1 Occurrences starting 03/05/20 until 03/05/2024 End: 03-30-2024 RF videography Hypopharynx and Esophagus Views for swallowing function W speech and W barium contrast PO [facility] Service Area Work Phone: Comment on above: Once for 1 Occurrences starting 03/30/20 until 03/30/2024 End: 11-19-2025 XR Chest PA and Lateral and AP lateral-decubitus XR Chest AP/PA and LAT Imaging Routine Cough, unspecified type 1 Occurrences starting 11/19/2024 until 11/19/2025 [facility] Work Phone: Comment on above: 1 Occurrences starting 11/19/2024 until 11/19/2025 XR Chest PA and Late ral and AP lateral-decubitus XR Chest AP/PA and LAT Imaging Routine Cough, unspecified type 11/19/2024 2:30 PM EDT [facility] Immunizations Immunization Date Immunization Notes Care Provider Fa cari 07-26-2024 influenza virus vaccine, unspecified formulation Prema Suzi DO Work Phone: [facility] 05-15-2024 influenza virus vaccine, unspecified formulation [address] Work Phone: 05-11-2023 influenza virus vaccine, unspecified formulation [address] Work Phone: Payers Date Payer Category Payer Self-pay 2023 Unknown [employer] [id number] 2023-Present [address] [place] [address] [id number] 2023 Unknown [id number] 2016 Medicaid MEDICAID [facility] xxxxxxxxxxxx 2016-Present xxxxxxxxxxxx [id number] .[id number] 2016 Medicaid [id number]. [id number] .[id number] 2016 Medicaid [id number] 2.16.840.1.659358.3.249.13 2008 Medicare MEDICARE MEDICAR E PART A & B xxxxxxxxxxx 2008-Present [place] xxxxxxxxxxx [id number] .[id number] 2008 Medicare [id number]. 1.13.159.2.7.3 .[id number] 2008 Medicare [id number] 1970 Unknown [id number] 2.16.840.1.189800.3.579.2.651 1970 Unknown [id number] 2.16.840.1.306841.3.579.2.594 1970 Unknown [id number] 2.16.840.1.279580.3.579.2.594 1970 Unknown [id number] 2.16.840.1.992877.3.579.2.594 1970 Unknown [id number] 2.16.840.1.920007.3.579.2.106 9 1970 Unknown [id number] 2.16.840.1.079258.3.579.2.124 5 1970 Unknown [id number] 2.16.840.1.689410.3.579.2.124 5 1970 Unknown [id number] 2.16.840.1.055437.3.579.2.903 1970 Unknown [id number] 2.16.840.1.222965.3.579.2.124 3 1970 Unknown [id number] 2.16.840.1.659310.3.579.2.124 3 1970 Unknown [id number] 2.16.840.1.124150.3.579.2.124 3 1970 Unknown [id number] 2.16.840.1.816826.3.579.2.124 3 1970 Unknown [id number] 2.16.840.1.448968.3.579.2.124 3 1970 Unknown [id number] 2.16.840.1.861406.3.579.2.124 3 1970 Unknown [id number] 2.16.840.1.605927.3.579.2.124 4 1970 Unknown [id number] 2.16.840.1.602668.3.579.2.124 4 1970 Unknown [id number] 2.16.840.1.812341.3.579.2.124 4 1970 Unknown [id number] 2.16.840.1.872508.3.579.2.902 1970 Unknown [id number] 2.16.840.1.993211.3.579.2.902 1970 Unknown [id number] 2.16.840.1.035824.3.579.2.902 1970 Unknown [id number] 2.16.840.1.601818.3.579.2.903 1970 Unknown [id number] 2.16.840.1.048285.3.579.2.903 1970 Unknown [id number] 2.16.840.1.868935.3.579.2. 1970 Unknown [id number] 2.16.840.1.919398.3.579.2. 1970 Unknown [id number] 2.16.840.1.097784.3.579.2. 1970 Unknown [id number] 2.16.840.1.480764.3.579.2. 1970 Unknown [id number] 2.16840.1.341300.3.579.2. 1970 Unknown [id number] 2.16.840.1.436232.3.579.2. 1970 Unknown [id number] 2.840.1.561321.3.579.2. 1970 Unknown [id number] 2.16.840.1.170734.3.579.2. 1970 Unknown [id number] 2.840.1.153027.3.579.2.903 Medicare [id number] 2.16.840.1.657605.3.249.13 Unknown [id number] 2.16840.1.484130.3.579.2.462 Unknown [id number] 2.840.1.861076.3.579.2.462 Social History Date Type Detail Facility Tobacco smoking stat us ARIS Unknown if ever smoked [facility] Start: 1970 Sex Assigned At Not on file [employer] Work Phone: Start: 07-07-2017 End: 02-07-2025 Tobacco smoking status NHIS Unknown if ever smoked [facility] Start: 05-29-2014 End: 06-20-2023 Tobacco smoking status NHIS Never smoked tobacco [facility] Start: 05-29-2014 End: 06-20-2023 Tobacco use and exposure Smokeless tobacco non-user [facility] Start: 10-21-2022 End: 11-07-2024 Alcohol intake Current non-drinker of alcohol (finding) [facility] Start: 06-20-2023 End: 06-18-2024 Alcohol intake Lifetime non-drinker (finding) [facility] Work Phone: Start: 06-20-2023 End: 06-18-2024 History of Social function [facility] Work Phone: Start: 06-20-2023 End: 06-18-2024 Tobacco use panel [facility] Work Phone: Start: 06-10-2023 End: 06-19-2024 Exposure to SARS-CoV-2 (event) Not sure [facility] Start: 06-19-2022 National Score (1-100), lower number is lower risk 56 [facility] Start: 06-22-2024 End: 02-19-2025 Alcoholic beverage intake Ex-drinker (finding) [facility] Start: 08-28-2024 Sexual orientation Heterosexual (finding) [facility] Start: 1970 Sex Assigned At Male [facility] Medical Equipment Procedure Code Equipment Code Equipment Origin al Text Equipment Identifier Dates Peg Kit, Endoviv e, Std, Pull, 20fr, W/Enfit - [id number] - [id number] Start: 06-18-2024 [id number] Start: 06-20-2024 [id number]-5/3 1/202 5 18 Fr Avanos [id number] Start: 08-24-2024 Tube 22fr Enfit Gastrostomy Feeding [facility] - On License Of [facility] [id number] Start: 08-24-2024 Functional Status Date Assessment Result Facility 06-19-2024 [place] - suicide s everity rating scale screener - recent [C-SSRS] [facility] Work Phone: 06-18-2024 [facility] Work Phone: 06-18-2024 Functional status [facility] 03-05-2024 Functional status [facility] 03-05-2024 [facility] Work Phone: [facility] Work Phone: [facility] Mental Status Date Assessment Result Facility 02-07-2025 Cognitive function Level Of Cons ciousness Awake;Alert [facility] Work Phone: 06-18-2024 Cognitive function finding Positive 06/18/2024 8:02 AM Sobia Dillard, RN Positive [facility] Work Phone: Clinical Notes 05-29-2014 to 05-02-2025 Telephone Encounter - Davida Anderson LPN - 04/15/2025 7:36 AM EDTTelephone Encounter - Davida Anderson [employer] [employer] - 04/15/2025 7:36 AM Prema Robertson, DO - 03/20/2025 2:27 PM EDT Note Date & Type Note Facility 05-02-2025 Note Please call Deborah at [facility] and let her know patient's lab results are stable. Negative PSA prostate cancer screening test. AUTHENTICATED BY PREMA ARCHER, ON 05/02/2025 14:42:39 [facility] 04-30-2025 Note Assessment/Plan: Spastic diplegic cerebral palsy (HCC) Physical and mental condition are stable. Patient is a halfway resident and completely dependent on nursing staff for ADLs, IADLs. Nonverbal, nonambulatory. Nursing staff to monitor and update any changes in medical condition, make appointment for any acute problem. Profound intellectual disability Follows with psychiatry, Dr. Mahoney, on mirtazapine, valproate, risperidone for mood and behaviors. - Check valproic acid level and CMP Status post gastrostomy (HCC) G-tube dependence since 05/2024. Feed is Isosource 1.5 kcal 5 times a day. Hydration with 20 mL water flush before and after meds, 60 mL water flush feeds. Weight is stable. - Check routine labs; CBC, CMP Constipation Patient is exclusively tube feed dependent since 06/17. Bowels are regular on twice daily MiraLAX and lactulose 10 g twice daily current medication regimen - Consider increasing lactulose if needed - Monitor for constipation and stomach residuals after tube feeding Screening for prostate cancer Last PSA was 0.44 04/13/2022. - Check updated PSA for prostate cancer screening Subjective: Rome Castillo is a 54 y.o. male Chief Complaint Patient presents with Annual Exam Patient presents for annual physical. He is accompanied by halfway staff, Deborah. PMH: Cerebral palsy, seizure disorder, profound intellectual disability, G-tube dependence due to dysphagia, seasonal allergies. There have been no changes to his medications. Deborah reports that his bowels are moving well since increasing MiraLAX to twice daily. He also takes lactulose for constipation. Tube feeding is going well with infrequent small-volume postprandial residuals. His weight is stable. No issues with behaviors or oversedation. Specialists: Psychiatric - Dr. Mahoney General surgery - Dr. Garcia Ophthalmology - Dr. Ortega Dentist - [facility] The following portions of the patient's history were reviewed and updated as appropriate: allergies, current medications, past family history, past medical history, past social history, past surgical history and problem list. Review of Systems Objective: PACU Vitals 04/30/25 1228 BP: 108/69 Pulse: 65 Resp: 16 SpO2: 94% Physical Exam Constitutional: General: He is not in acute distress. Appearance: He is not ill-appearing, toxic-appearing or diaphoretic. Comments: In electric wheelchair HENT: Head: Normocephalic and atraumatic. Mouth/Throat: Mouth: Mucous membranes are moist. Cardiovascular: Rate and Rhythm: Normal rate and regular rhythm. Heart sounds: No murmur heard. No gallop. Pulmonary: Effort: No respiratory distress. Breath sounds: Normal breath sounds. No wheezing or rales. Musculoskeletal: Right lower leg: No edema. Left lower leg: No edema. Comments: Contractions of upper extremities Skin: General: Skin is warm and dry. Coloration: Skin is not jaundiced or pale. Neurological: Mental Status: He is alert. Psychiatric: Mood and Affect: Mood normal. Speech: He is noncommunicative. For any new medications prescribed today, patient was educated about indications for the medication, how to take the medication and potential side effects of the medications. My ongoing relationship with Rome Castillo requires continued responsibility and cognitive effort of being the focal point for all services related to chronic condition(s). Prema Archer, DO AUTHENTICATED BY PREMA ARCHER, ON 05/04/2025 02:12:47 [facility] 04-15-2025 Telephone encount er Note Last ov 02/12/25 Next ov 04/30/25 [facility] 04-15-2025 Miscellaneous Notes Formattin g of this note might be different from the original. Last ov 02/12/25 Next ov 04/30/25 documented in this encounter [facility] 03-20-2025 Note Medication list updtheodora hardy AUTHENTICATED BY PREMA ARCHER, ON 03/20/2025 14:27:37 [facility] 03-20-2025 History of Presen t illness Narrative Medication list updated documented in this encounter [facility] 02-19-2025 Evaluation + Plan note Associated Problem(s): Constipation Bowel regimen includes daily miralax and BID lactulose 10 g. - Increase miralax to BID - Continue current dose of lactulose, but consider increasing if needed - Monitor for constipation and stomach residuals after tube feeding [facility] 02-19-2025 Miscellaneous Notes Associate d Problem(s): Constipation Bowel regimen includes daily miralax and BID lactulose 10 g. - Increase miralax to BID - Continue current dose of lactulose, but consider increasing if needed - Monitor for constipation and stomach residuals after tube feeding documented in this encounter [facility] 02-12-2025 History of Presen t illness Narrative Assessment/Plan: Constipation Bowel regimen includes daily miralax and BID lactulose 10 g. - Increase miralax to BID - Continue current dose of lactulose, but consider increasing if needed - Monitor for constipation and stomach residuals after tube feeding Subjective: Rome Castillo is a 54 y.o. male Chief Complaint Patient presents with ER F/U ER f/u- do to vomiting & problems with BM Patient presents for ER follow-up. He is accompanied by halfway staff. He presented to ER in [place] with vomiting, and having increasing amount of residuals in his stomach after tube feeding. He had gone 3 days with no BM. Usually goes daily. He is on a bowel regimen of miralax daily, lactulose 10 g BID, and receives prn fleet enema. He has had a BM since returning home, but still sluggish and with some residuals. The following portions of the patient's history were reviewed and updated as appropriate: allergies, current medications, past family history, past medical history, past social history, past surgical history and problem list. Review of Systems Objective: PACU Vitals 02/12/25 1504 BP: 101/79 Pulse: 80 Resp: 16 SpO2: 93% Physical Exam Constitutional: General: He is not in acute distress. Appearance: He is not ill-appearing, toxic-appearing or diaphoretic. Cardiovascular: Rate and Rhythm: Normal rate and regular rhythm. Heart sounds: No murmur heard. No gallop. Pulmonary: Effort: Pulmonary effort is normal. No respiratory distress. Abdominal: General: Abdomen is flat. Bowel sounds are normal. There is no distension. Tenderness: There is no abdominal tenderness. There is no guarding. Psychiatric: Mood and Affect: Mood normal. For any new medications prescribed today, patient was educated about indications for the medication, how to take the medication and potential side effects of the medications. My ongoing relationship with Rome Castillo requires continued responsibility and cognitive effort of being the focal point for all services related to chronic condition(s). Prema Archer DO documented in this encounter [facility] 02-12-2025 Note Assessment/Plan: Constipation Bowel regimen includes daily miralax and BID lactulose 10 g. - Increase miralax to BID - Continue current dose of lactulose, but consider increasing if needed - Monitor for constipation and stomach residuals after tube feeding Subjective: Rome Castillo is a 54 y.o. male Chief Complaint Patient presents with ER F/U ER f/u- do to vomiting & problems with BM Patient presents for ER follow-up. He is accompanied by halfway staff. He presented to ER in [place] with vomiting, and having increasing amount of residuals in his stomach after tube feeding. He had gone 3 days with no BM. Usually goes daily. He is on a bowel regimen of miralax daily, lactulose 10 g BID, and receives prn fleet enema. He has had a BM since returning home, but still sluggish and with some residuals. The following portions of the patient's history were reviewed and updated as appropriate: allergies, current medications, past family history, past medical history, past social history, past surgical history and problem list. Review of Systems Objective: PACU Vitals 02/12/25 1504 BP: 101/79 Pulse: 80 Resp: 16 SpO2: 93% Physical Exam Constitutional: General: He is not in acute distress. Appearance: He is not ill-appearing, toxic-appearing or diaphoretic. Cardiovascular: Rate and Rhythm: Normal rate and regular rhythm. Heart sounds: No murmur heard. No gallop. Pulmonary: Effort: Pulmonary effort is normal. No respiratory distress. Abdominal: General: Abdomen is flat. Bowel sounds are normal. There is no distension. Tenderness: There is no abdominal tenderness. There is no guarding. Psychiatric: Mood and Affect: Mood normal. For any new medications prescribed today, patient was educated about indications for the medication, how to take the medication and potential side effects of the medications. My ongoing relationship with Rome Castillo requires continued responsibility and cognitive effort of being the focal point for all services related to chronic condition(s). Prema Archer DO AUTHENTICATED BY PREMA ARCHER, ON 02/19/2025 01:37:21 [facility] 02-07-2025 Discharge summary Note Date/Time February 07, 2025 11:18am [facility] Medical Records Department [address] [place] [address] Emergency Department Summary 02/07/25 MR#: [id number] Acct: [id number] Name: ROME CASTILLO Delilah Rep #:[id number] : 1970 54 From: Aramis Serna DO PCP: Dr. Prema Archer, DO Status:REG ER Location: ED HPI History of Present Illness Chief Complaint: General Illness Narrative Narrative: Patient is a 54-year-old male with past medical history aphasia, cerebral palsy,seizure, PEG tube, nonverbal who presented to the emergency department via EMS from halfway per EMS he has had some nausea vomiting and high residual from PEG tube. Patient is unable to provide history of present illness therefore acute care caveat applies. According to the caregiver at bedside they note thathe had no bowel movement from Tuesday to Tuesday gave a laxative and then he had a large bowel movement. They note that starting last night he developed nausea vomiting and had high residuals from his feeding tube today therefore they had him sent here for further evaluation management. [facility] Medical History Aphasia Constipation Cerebral palsy Hyperactivity Seizure PEG tube malfunction Nonverbal Home Medications ?Medication ?Instructions ?Recorded ?Last Taken ?Type lactose-reduced food-fiber 0.07 250 ml feeding tube 5X /DAY 01/17/25 Unknown History gram-1.5 kcal/mL liquid for tube feed (Isosource 1.5 Devon) lactulose 10 gram/15 mL oral 15 ml feeding tube BID Unknown History solution (Constulose) loratadine 10 mg tablet 10 mg feeding tube DAILY Unknown History (Allerclear) mirtazapine 15 mg tablet 15 mg feeding tube QHS 01/17 Unknown History pantoprazole 40 mg granules 40 mg feeding tube BID Unknown History delayed-release for susp in packet (Protonix) polyethylene glycol 3350 17 17 g feeding tube DAILY Unknown History gram/dose oral powder (Miralax) risperidone 3 mg tablet (Risperdal) 3 mg feeding tube QHS 01/17/25 Unknown History valproic acid (as sodium salt) 250 250 mg feeding tube DAILY 01/17/25 Unknown History mg/5 mL (5 mL) oral solution valproic acid (as sodium salt) 500 500 mg feeding tube QHS 01/17/25 Unknown History mg/10 mL (10 mL) oral solution ondansetron 4 mg disintegrating 4 mg PO Q6H PRN nausea and 02/07/25 Unknown Rx tablet vomiting #20 tabs Allergy/AdvReac Type Severity Reaction Status Date / Time No Known Allergies Allergy Verified 01/17/25 06:57 Social History Smoking Status: Unknown if ever smoked ROS ROS ED ROS Narrative Review of systems unobtainable from the patient secondary to his aphasia and nonverbal therefore acute care caveat applies EXAM Physical Exam Narrative Exam Narrative: General: Patient was lying in bed rest comfortably did not appear to be in acutedistress Head: Atraumatic, normocephalic Eyes: PERRL bilateral, EOMI black no conjunctival injection noted Neck: Soft, supple, trachea midline Cardiovascular: Regular rate rhythm no murmurs gallops rubs noted Respiratory: Clear to auscultation bilaterally no rales rhonchi or wheezes noted Abdomen: Soft, nondistended, PEG tube in place no concern for surrounding infection there was tube feed noted in the feeding tube itself Neurological: Patient at his baseline per staff at bedside Skin: Warm, dry, intact no rashes or lesions noted Const Vital Signs: 02/07/25 08:46 02/07/25 08:51 02/07/25 09:31 Temperature 97.2 F L Temperature Source Axillary Pulse Rate 78 87 Respiratory Rate 18 Respiratory Effort Normal Non-Labored Respiratory Pattern Normal Blood Pressure 109/77 101/88 H Blood Pressure Mean 87 92 Pulse Ox 97 Oxygen Delivery Method Room Air MDM MDM MDM Narrative Medical decision making narrative: Patient is a 54-year-old male who presented to the emergency department with a chief complaint of nausea, vomiting, high residual tube feeds. On the differential diagnosis includes but not limited to ileus, bowel obstruction, PEGtube not in the appropriate position, viral gastroenteritis, constipation. Onceworkup is obtained reviewed he will be reevaluated Patient's CBC reviewed showed no leukocytosis white blood count 5.8, hemoglobin stable 15.2, plate count was 140. Sodium 141, potassium normal 4.7, creatinine was 0.58. Patient AST and ALT are 22 and 28 respectively. Patient lipase normal at 18. Patient's CT abdomen pelvis IV contrast reviewed and showed fattyinfiltration of liver PEG tube is seen within the stomach distended urinary bladder. Patient is moderate mount of fecal material seen throughout the colon. I discussed the results with the patient's caregiver at bedside and they would like to take him back to the halfway at this point time. They are encouragedto increase laxative use to encourage bowel movements which is likely leading tohis high residuals. They are vies if this does not work they should return to the emergency department or return with any other concerns. All question concerns answered he is discharged home in stable condition. Prescription for Zofran ODT sent to the pharmacy. Lab Data Labs: Laboratory Results - last 24 hr 02/07/25 09:12 WBC 5.8 RBC 4.87 Hgb 15.2 Hct 44.9 MCV 92.2 MCH 31.2 MCHC 33.9 RDW Std Deviation 42.4 RDW Coeff of Eb 12.6 Plt Count 140 L MPV 12.4 H Immature Gran % (Auto) 0.200 Neut % (Auto) 83.8 H Lymph % (Auto) 8.0 L [place] % (Auto) 7.7 Eos % (Auto) 0.0 Baso % (Auto) 0.3 Absolute Neuts (auto) 4.8 Absolute Lymphs (auto) 0.46 L Nucleated RBC % 0 Sodium 141 Potassium 4.7 Chloride 104 Carbon Dioxide 27.1 Anion Gap 10 BUN 24 H Creatinine 0.58 L Estim Creat Clear Calc 102.97 Est GFR (MDRD) Non-Af 116 BUN/Creatinine Ratio 42.4 H Glucose 143 H Calcium 9.3 Total Bilirubin 0.38 AST 22 ALT 28 Alkaline Phosphatase 102 Total Protein 7.0 Albumin 3.8 Globulin 3.2 Albumin/Globulin Ratio 1.2 Lipase 18 Radiography Diagnostic Testing: Clinical Impression(s) from Imaging Studies Abdomen/Pelvis CT 02/07/25 09:09 IMPRESSION: Fatty infiltration of the liver. Peg tube is seen within the stomach. Distended urinary bladder. Reading Location: [facility] Discharge Plan Triage Chief Complaint: General Illness ED Provider: Aramis Serna Dx/Rx/DC Orders Clinical Impression: Nausea & vomiting, Constipation, History of seizure, Cerebral palsy Prescriptions: New ondansetron 4 mg tablet,disintegrating 4 mg PO Q6H PRN (Reason: nausea and vomiting) Qty: 20 0RF No Action lactulose [Constulose] 10 gram/15 mL solution 15 ml feeding tube BID loratadine [Allerclear] 10 mg tablet 10 mg feeding tube DAILY mirtazapine 15 mg tablet 15 mg feeding tube QHS pantoprazole [Protonix] [address] peterson susp in packet 40 mg feeding tube BID polyethylene glycol 3350 [Miralax] 17 gram/dose powder 17 g feeding tube DAILY risperidone [Risperdal] 3 mg tablet 3 mg feeding tube QHS valproic acid (as sodium salt) 500 mg/10 mL (10 mL) solution 500 mg feeding tube QHS valproic acid (as sodium salt) 250 mg/5 mL (5 mL) solution 250 mg feeding tube DAILY Isosource 1.5 Devon 0.07 gram-1.5 kcal/mL liquid 250 ml feeding tube 5X/DAY Primary Care Provider: Prema Archer Referrals: Prema Archer DO [Primary Care Provider] - Activity Restrictions/Additional Instructions: The blood work here today did not show any acute findings and the CT abdomen pelvis showed constipation this is likely leading to his high residuals and it is advised to encourage bowel movements with either MiraLAX or other stool softeners. If he is having adequate bowel movements with high residuals with persistent nausea vomiting return to the emergency department or return with anyother concerns. Follow-up with his primary care physician as well. Print Language: Hong Konger Disposition Disposition: Home, Self Care What to do if you have Problems For any increased pain, shortness of breath, bleeding, nausea or vomiting, chestpain, or any unexpected problems, contact your Primary Care Provider. Call [facility] ([phone]) or report to the closest Emergency Room. Call 911 if necessary. 02/07/25 1118 <Electronically signed by Aramis Serna DO> Cosigner Signature (if applicable): CC: Dr. Prema Archer DO ~ Signed [facility] Work Phone: [phone] 362-551407-17-2025 Discharge summary [facility] Medical Records Department [address] [place] [address] Emergency Department Summary 02/07/25 MR#: [id number] Acct: [id number] Name: ROME CASTILLO Rep #:[id number] : 1970 54 From: Aramis Serna DO PCP: Dr. Prema Archer DO Status:REG ER Location: ED HPI History of Present Illness Chief Complaint: General Illness Narrative Narrative: Patient is a 54-year-old male with past medical history aphasia, cerebral palsy,seizure, PEG tube, nonverbal who presented to the emergency department via EMS from halfway per EMS he has had some nausea vomiting and high residual from PEG tube. Patient is unable to provide history of present illness therefore acute care caveat applies. According to the caregiver at bedside they note thathe hadno bowel movement from Tuesday to Tuesday gave a laxative and then he had a large bowel movement. They note that starting last night he developed nausea vomiting and had high residuals fromhis feeding tube today therefore they had him sent here for further evaluation management. [facility] Medical History Aphasia Constipation Cerebral palsy Hyperactivity Seizure PEG tube malfunction Nonverbal Home Medications ?Medication ?Instructions ?Recorded ?Last Taken ?Type lactose-reduced food-fiber 0.07 250 ml feeding tube 5X /DAY 01/17/25 Unknown History gram-1.5 kcal/mL liquid for tube feed (Isosource 1.5 Devon) lactulose 10 gram/15 mL oral 15 ml feeding tube BID Unknown History solution (Constulose) loratadine 10 mg tablet 10 mg feeding tube DAILY Unknown History (Allerclear) mirtazapine 15 mg tablet 15 mg feeding tube QHS 01/17 Unknown History pantoprazole 40 mg granules 40 mg feeding tube BID Unknown History delayed-release for susp in packet (Protonix) polyethylene glycol 3350 17 17 g feeding tube DAILY Unknown History gram/dose oral powder (Miralax) risperidone 3 mg tablet (Risperdal) 3 mg feeding tube QHS 01/17/25 Unknown History valproic acid (as sodium salt) 250 250 mg feeding tube DAILY 01/17/25 Unknown History mg/5 mL (5 mL) oral solution valproic acid (as sodium salt) 500 500 mg feeding tube QHS 01/17/25 Unknown History mg/10 mL (10 mL) oral solution ondansetron 4 mg disintegrating 4 mg PO Q6H PRN nausea and 02/07/25 Unknown Rx tablet vomiting #20 tabs Allergy/AdvReac Type Severity Reaction Status Date / Time No Known Allergies Allergy Verified 01/17/25 06:57 Social History Smoking Status: Unknown if ever smoked ROS ROS ED ROS Narrative Review of systems unobtainable from the patient secondary to his aphasia and nonverbal therefore acute care caveat applies EXAM Physical Exam Narrative Exam Narrative: General: Patient was lying in bed rest comfortably did not appear to be in acutedistress Head: Atraumatic, normocephalic Eyes: PERRL bilateral, EOMI black no conjunctival injection noted Neck: Soft, supple, trachea midline Cardiovascular: Regular rate rhythm no murmurs gallops rubs noted Respiratory: Clear to auscultation bilaterally no rales rhonchi or wheezes noted Abdomen: Soft, nondistended, PEG tube in place no concern for surrounding infection there was tube feed noted in the feeding tube itself Neurological: Patient at his baseline per staff at bedside Skin: Warm, dry, intact no rashes or lesions noted Const Vital Signs: 02/07/25 08:46 02/07/25 08:51 02/07/25 09:31 Temperature 97.2 F L Temperature Source Axillary Pulse Rate 78 87 Respiratory Rate 18 Respiratory Effort Normal Non-Labored Respiratory Pattern Normal Blood Pressure 109/77 101/88 H Blood Pressure Mean 87 92 Pulse Ox 97 Oxygen Delivery Method Room Air MDM MDM MDM Narrative Medical decision making narrative: Patient is a 54-year-old male who presented to the emergency department with a chief complaint of nausea, vomiting, high residual tube feeds. On the differential diagnosis includes but not limited toileus, bowel obstruction, PEGtube not in the appropriate position, viral gastroenteritis, constipation. Onceworkup is obtained reviewed he will be reevaluated Patient's CBC reviewed showed no leukocytosis white blood count 5.8, hemoglobin stable 15.2, plate count was 140. Sodium 141, potassium normal 4.7, creatinine was 0.58. Patient AST and ALT are 22 and28 respectively. Patient lipase normal at 18. Patient's CT abdomen pelvis IV contrast reviewed and showed fattyinfiltration of liver PEG tube is seen within the stomach distended urinary bladder. Patient is moderate mount of fecal material seen throughout the colon. I discussed the results with the patient's caregiver at bedside and they would like to take him back to the halfway at this point time. They are encouragedto increase laxative use to encourage bowel movements which is likely leading tohis high residuals. They are vies if this does not work they should return to the emergency department or return with any other concerns. All question concerns answered he is discharged home in stable condition. Prescription for Zofran ODT sent to the pharmacy. Lab Data Labs: Laboratory Results - last 24 hr 02/07/25 09:12 WBC 5.8 RBC 4.87 Hgb 15.2 Hct 44.9 MCV 92.2 MCH 31.2 MCHC 33.9 RDW Std Deviation 42.4 RDW Coeff of Eb 12.6 Plt Count 140 L MPV 12.4 H Immature Gran % (Auto) 0.200 Neut % (Auto) 83.8 H Lymph % (Auto) 8.0 L [place] % (Auto) 7.7 Eos % (Auto) 0.0 Baso % (Auto) 0.3 Absolute Neuts (auto) 4.8 Absolute Lymphs (auto) 0.46 L Nucleated RBC % 0 Sodium 141 Potassium 4.7 Chloride 104 Carbon Dioxide 27.1 Anion Gap 10 BUN 24 H Creatinine 0.58 L Estim Creat Clear Calc 102.97 Est GFR (MDRD) Non-Af 116 BUN/Creatinine Ratio 42.4 H Glucose 143 H Calcium 9.3 Total Bilirubin 0.38 AST 22 ALT 28 Alkaline Phosphatase 102 Total Protein 7.0 Albumin 3.8 Globulin 3.2 Albumin/Globulin Ratio 1.2 Lipase 18 Radiography Diagnostic Testing: Clinical Impression(s) from Imaging Studies Abdomen/Pelvis CT 02/07/25 09:09 IMPRESSION: Fatty infiltration of the liver. Peg tube is seen within the stomach. Distended urinary bladder. Reading Location: [place] [address] Discharge Plan Triage Chief Complaint: General Illness ED Provider: Aramis Serna Dx/Rx/DC Orders Clinical Impression: Nausea & vomiting, Constipation, History of seizure, Cerebral palsy Prescriptions: New ondansetron 4 mg tablet,disintegrating 4 mg PO Q6H PRN (Reason: nausea and vomiting) Qty: 20 0RF No Action lactulose [Constulose] 10 gram/15 mL solution 15 ml feeding tube BID loratadine [Allerclear] 10 mg tablet 10 mg feeding tube DAILY mirtazapine 15 mg tablet 15 mg feeding tube QHS pantoprazole [Protonix] [address] for susp in packet 40 mg feeding tube BID polyethylene glycol 3350 [Miralax] 17 gram/dose powder 17 g feeding tube DAILY risperidone [Risperdal] 3 mg tablet 3 mg feeding tube QHS valproic acid (as sodium salt) 500 mg/10 mL (10 mL) solution 500 mg feeding tube QHS valproic acid (as sodium salt) 250 mg/5 mL (5 mL) solution 250 mg feeding tube DAILY Isosource 1.5 Devon 0.07 gram-1.5 kcal/mL liquid 250 ml feeding tube 5X/DAY Primary Care Provider: Prema Archer Referrals: Prema Archer DO [Primary Care Provider] - Activity Restrictions/Additional Instructions: The blood work here today did not show any acute findings and the CT abdomen pelvis showed constipation this is likely leading to his high residuals and it is advised to encourage bowel movements with either MiraLAX or other stool softeners. If he is having adequate bowel movements with high residuals with persistent nausea vomiting return to the emergency department or return with anyother concerns. Follow-up with his primary care physician as well. Print Language: Hong Konger Disposition Disposition: Home, Self Care What to do if you have Problems For any increased pain, shortness of breath, bleeding, nausea or vomiting, chestpain, or any unexpected problems, contact your Primary Care Provider. Call [facility] ([phone]) or report tothe closest Emergency Room. Call 911 if necessary. 02/07/25 1118 Cosigner Signature (if applicable): CC: Dr. Prema Archer DO ~ Signed [facility]07-17-2025 Radiology Diagnostic study note [facility] Imaging Services [address], [place] [id number] Abdomen/Pelvis W IV Cont ONLY MR#: [id number] Acct: [id number] Name: ROME CASTILLO Rep #: [id number] : 1970 M 54 From: Hector Jeffries MD PCP: Dr. Prema Archer DO Status: REG ER Study:Abdomen/Pelvis W IV Cont ONLY Date of E xam: 02/07/25 Exam# [id number] Ordering Dr: Aracelis Serna DO PROCEDURE: ABDOMEN/PELVIS W IV CONT ONLY 02/07/2025 REASON FOR EXAM: N/V, HIGH RESIDUAL FROM TUBE FEED TECHNIQUE: ABDOMEN/PELVIS W IV CONT ONLY Coronal and Sagittal reconstruction series were provided. CONTRAST: Isovue 3 7 VOLUME: 100 mL One or more dose reduction techniques were used (e.g., Automated exposure control, adjustment of the mA and/or kV according to patient size, use of iterative reconstruction technique. RADIATION DOSE SUMMARY: CTDlvol: 13 mGy DLP: 479.83 mGycm COMPARISON: None FINDINGS: Lung bases: Mild dependent atelectasis Liver: Normal size. No mass. Fatty infiltration of the liver. Gallbladder: No evidence of gallstones. The gallbladder is not distended. Spleen: Normal size. Pancreas: Normal size without evidence of mass surrounding inflammation or ductal dilation. Adrenals: Unremarkable Kidneys: Normal renal sizes. No hydronephrosis. Bladder: There is Bowel: A PEG tube is seen within the stomach. Moderate amount of fecal materialis seen throughout the colon. Appendix: The appendix is not identified. There is no inflammatory process identified in the right lower quadrant to suggest appendicitis. Lymph nodes: No suspicious lymph node enlargement. Vasculature: The abdominal aorta and IVC are normal. Peritoneum / Retroperitoneum: Unremarkable Bones: Degenerative changes of the spine. CT/Abdomen/Pelvis W IV Cont ONLY IMPRESSION: Fatty infiltration of the liver. Peg tube is seen within the stomach. Distended urinary bladder. Reading Location: [place] [address] CC: Dr. Prema Archer DO; Dr. Aramis Serna DO ~ International Sales Manager: Signed [facility]07-05-2025 Evaluation + Plan note* Assessment & Plan Note - Prema Archer DO - 01/26/2025 1:22 PM EDTAssociated Problem(s): Irritation around percutaneous endoscopic gastrostomy (PEG) tube site (HCC) Likely due to clothing tugging on tube. No S/S of infection. Serosanguineous drainage on split sponge. - Monitor PEG area for mild trauma [id number] Miscellaneous Notes* Assessment & Plan Note - Prema Archer DO - 01/26/2025 1:22 PM EDTAssociated Problem(s): Irritation around percutaneous endoscopic gastrostomy (PEG) tube site (HCC) Likely due to clothing tugging on tube. No S/S of infection. Serosanguineous drainage on split sponge. - Monitor PEG area for mild trauma * Assessment & Plan Note - Prema Archer DO - 01/26/2025 1:21 PM EDT Associated Problem(s): Hearing loss of right ear due to cerumen impaction Ear irrigation by MARCO in office today. documented in this [id number] Evaluation + Plan note* Assessment & Plan Note - Prema Archer DO - 01/26/2025 1:21 PM EDT Associated Problem(s): Hearing loss of right ear due to cerumen impaction Ear irrigation by MARCO in office today. [id number] History of Present illness Narrative* Prema Archer DO - 01/23/2025 10:40 AM EDT Images from the original note were not included. Assessment/Plan: Hearing loss of right ear due to cerumen impaction Ear irrigation by MARCO in office today. Irritation around percutaneous endoscopic gastrostomy (PEG) tube site (HCC) Likely due to clothing tugging on tube. No S/S of infection. Serosanguineous drainage on split sponge. - Monitor PEG area for mild trauma Subjective: Rome Castillo is a 54 y.o. male Chief Complaint Patient presents with Hospital f/u [facility] f/u irritated feeding tube Cerumen Impaction Rt ear wax, Pt was rubbing ear Patient [facility]. [facility] on [facility]/20[facility] for irritation/drainage around his PEG tube. There were no signs of infection, and he was discharged with no antibiotic. He has been rubbing at his right ear, which usually indicates cerumen impaction. The following portions of the patient's history were reviewed and updated as appropriate: allergies, current medications, past family history, past medical history, past social history, past surgicalhistory and problem list. Review of Systems Objective: PACU Vitals 01/23/25 1049 Pulse: 76 Resp: 14 SpO2: 98% Physical Exam Constitutional: General: He is not in acute distress. Appearance: He is not ill-appearing, toxic-appearing or diaphoretic. HENT: Head: Normocephalic and atraumatic. Right Ear: There is impacted cerumen. Left Ear: There is no impacted cerumen. Cardiovascular: Rate and Rhythm: Normal rate and regular rhythm. Heart sounds: No murmur heard. No gallop. Pulmonary: Effort: Pulmonary effort is normal. No respiratory distress. Breath sounds: Normal breath sounds. No wheezing. Abdominal: General: Abdomen is flat. Palpations: Abdomen is soft. Skin: General: Skin is warm and dry. Coloration: Skin is not jaundiced or pale. Comments: Skin around PEG tube is mildly irritated, with serosanguineous drainage on split sponge. Psychiatric: Mood and Affect: Mood normal. For any new medications prescribed today, patient was educated about indications for the medication, how to take the medication and potential side effects of the medications. My ongoing relationship with Rome Castillo requires continued responsibility and cognitive effort of being the focal point for all services related to chronic condition(s). Prema Archer DO documented in this [id number] NoteAssessment/Plan: Hearing loss of right ear due to cerumen impaction Ear irrigation by MARCO in office today. Irritation around percutaneous endoscopic gastrostomy (PEG) tube site (HCC) Likely due to clothing tugging on tube. No S/S of infection. Serosanguineous drainage on split sponge. - Monitor PEG area for mild trauma Subjective: Rome Castillo is a 54 y.o. male Chief Complaint Patient presents with Hospital f/u [place] [facility] f/u irritated feeding tube Cerumen Impaction Rt ear wax, Pt was rubbing ear Patient presents for ER follow up. He is accompanied by [facility] halfway staff. He was taken to [place] ER on 01/17/2025 for irritation/drainage around his PEG tube. There were no signs of infection, and he was discharged with no antibiotic. He has been rubbing at his right ear, which usually indicates cerumen impaction. The following portions of the patient's history were reviewed and updated as appropriate: allergies, current medications, past family history, past medical history, past social history, past surgical history and problem list. Review of Systems Objective: PACU Vitals 01/23/25 1049 Pulse: 76 Resp: 14 SpO2: 98% Physical Exam Constitutional: General: He is not in acute distress. Appearance: He is not ill-appearing, toxic-appearing or diaphoretic. HENT: Head: Normocephalic and atraumatic. Right Ear: There is impacted cerumen. Left Ear: There is no impacted cerumen. Cardiovascular: Rate and Rhythm: Normal rate and regular rhythm. Heart sounds: No murmur heard. No gallop. Pulmonary: Effort: Pulmonary effort is normal. No respiratory distress. Breath sounds: Normal breath sounds. No wheezing. Abdominal: General: Abdomen is flat. Palpations: Abdomen is soft. Skin: General: Skin is warm and dry. Coloration: Skin is not jaundiced or pale. Comments: Skin around PEG tube is mildly irritated, with serosanguineous drainage on split sponge. Psychiatric: Mood and Affect: Mood normal. For any new medications prescribed today, patient was educated about indications for the medication, how to take the medication and potential side effects of the medications. My ongoing relationship with Rome Castillo requires continued responsibility and cognitive effort of being the focal point for all services related to chronic condition(s). Prema Archer DO AUTHENTICATED BY PRMEA ARCHER, ON 01/26/2025 13:24:27[facility] 01-17-2025 Radiology Diagnostic study note [facility] Imaging Services [address] [place] [address] Abdomen Single View (Portable) MR#: [id number] Acct: [id number] Name: ROME CASTILLO Rep #: [id number] : 1970 M 54 From: Nitin Peralta MD PCP: Dr. Prema Archer DO Status: PRE ER Study:Abdomen Single View (Portable) Date of Exam: 01/17/25 Exam# [id number] Ordering Dr: Elías Hernández DO PROCEDURE: ABDOMEN SINGLE VIEW (PORTABLE) 01/17/2025 REASON FOR EXAM: PEG TUB EVAL TECHNIQUE: ABDOMEN SINGLE VIEW (PORTABLE) COMPARISON: None. FINDINGS: Percutaneous gastrostomy tube is in good position with its tip at the level of the gastric body. Contrast was injected through the tube outlining normal gastric rugae without evidence of contrast leakage. Normal visualized lung bases. There is an unremarkable bowel gas pattern. There is no demonstrated free abdominal air. Normal visualized liver. Normal visualized spleen. Normal visualized kidneys. The soft tissue structures of the pelvis are unremarkable. Moderate diffuse spondylosis. RAD/Abdomen Single View (Portable) IMPRESSION: Percutaneous gastrostomy tube is in good position. Reading Location: [place] [address] CC: Dr. Prema Archer DO; Dr. Elías Hernández DO ~ International Sales Manager: Signed [facility]06-26-2025 Discharge summary [facility] Medical Records Department [address] [place] [id number] Emergency Department Summary 01/17/25 MR#: [id number] Acct: [id number] Name: ROME CASTILLO Rep #:[id number] : 1970 54 From: Elías Banegas PCP: Dr. Prema Archer DO Status:PRE ER Location: ED HPI History of Present Illness Chief Complaint: Other, Pain/Inj Narrative Narrative: Patient nonverbal. Sent in for evaluation of PEG tube. Reported patient tuggedon the tube there wasbleeding. Unclear exactly when this was placed as there is no current records. [facility] Medical History (Updated 01/17/25 @ 07:[address] Elías Hernández DO) Aphasia Constipation Cerebral palsy Hyperactivity Seizure PEG tube malfunction Nonverbal Home Medications ?Medication ?Instructions ?Recorded ?Last Taken ?Type lactose-reduced food-fiber 0.07 250 ml feeding tube 5X /DAY 01/17/25 Unknown History gram-1.5 kcal/mL liquid for tube feed (Isosource 1.5 Devon) lactulose 10 gram/15 mL oral 15 ml feeding tube BID Unknown History solution (Constulose) loratadine 10 mg tablet 10 mg feeding tube DAILY Unknown History (Allerclear) mirtazapine 15 mg tablet 15 mg feeding tube QHS 01/17 Unknown History pantoprazole 40 mg granules 40 mg feeding tube BID Unknown History delayed-release for susp in packet (Protonix) polyethylene glycol 3350 17 17 g feeding tube DAILY Unknown History gram/dose oral powder (Miralax) risperidone 3 mg tablet (Risperdal) 3 mg feeding tube QHS 01/17/25 Unknown History valproic acid (as sodium salt) 250 250 mg feeding tube DAILY 01/17/25 Unknown History mg/5 mL (5 mL) oral solution valproic acid (as sodium salt) 500 500 mg feeding tube QHS 01/17/25 Unknown History mg/10 mL (10 mL) oral solution Allergy/AdvReac Type Severity Reaction Status Date / Time No Known Allergies Allergy Verified 01/17/25 06:57 Social History Smoking Status: Unknown if ever smoked ROS ROS ED Review of Systems ROS Unobtainable: other Details: Limited secondary to patient nonverbal EXAM Physical Exam Const Vital Signs: 01/17/25 06:56 Temperature 97.6 F L Temperature Source Temporal Pulse Rate 84 Respiratory Rate 16 Blood Pressure 141/32 H Blood Pressure Mean 68 Pulse Ox 98 Oxygen Delivery Method Room Air Positive cachectic and contractures General Appearance ED: cachectic and contractures Nutritional Appearance: cachectic HEENT normocephalic and atraumatic Eyes General Eye ED: Yes normal appearance of both eyes Resp normal respiratory effort and normal air movement Cardio regular rate and regular rhythm GI GI Narrative: Abdominal binder, removed, PEG tube, stressing, orifice appears fairly fresh wound, dried blood around this, no active bleeding. Neuro Neuro Narrative: Awake, nontoxic Skin Skin Narrative: See above MDM MDM MDM Narrative Medical decision making narrative: Interventions / MDM: Differential diagnosis: PEG tube evaluation Diagnosis considered but do not suspect: Dislodged PEG tube however KUB confirmsplacement. My EKG interpretation: N/A Imaging independently reviewed and interpreted by myself: KUB: Performed formed with Gastrografin confirms placement External documents reviewed: N/A Test considered but not ordered:N/A ED course: Concerns for bleeding from PEG tube, appears fairly fresh placement with the wound. Patient being nonverbal, KUB with Gastrografin will be ordered to confirm location. 0725: KUB reviewed bedside confirms placement in the stomach. Caregiver bedside. Reports overall place a year ago however was previously pulled needed surgical revision, she cannot tell me when. He is at a halfway nonverbal. There is a booklet of medications however no medical conditions that she can tell me specifically. Reports he is PEG tube dependent. I discussed wound carecontinue dressings. Tube is okay to use. Patient will be discharged back with caregiver. Re-evaluation: stable Disposition discussed with patient/family/significant other: Caregiver Case discussed with consulting clinician: N/A This note was generated with [employer]ons[employer]on dictation software. It may contain incorrectwords, spelling, and punctuation that were not noted in checking the note beforesigning. Discharge Plan Triage Chief Complaint: Other, Pain/Inj ED Provider: Elías Hernández Dx/Rx/DC Orders Clinical Impression: Irritation around percutaneous endoscopic gastrostomy (PEG) tube site, Nonverbal Instructions: Feeding Tube Prescriptions: No Action lactulose [Constulose] 10 gram/15 mL solution 15 ml feeding tube BID loratadine [Allerclear] 10 mg tablet 10 mg feeding tube DAILY mirtazapine 15 mg tablet 15 mg feeding tube QHS pantoprazole [Protonix] [address] for susp in packet 40 mg feeding tube BID polyethylene glycol 3350 [Miralax] 17 gram/dose powder 17 g feeding tube DAILY risperidone [Risperdal] 3 mg tablet 3 mg feeding tube QHS valproic acid (as sodium salt) 500 mg/10 mL (10 mL) solution 500 mg feeding tube QHS valproic acid (as sodium salt) 250 mg/5 mL (5 mL) solution 250 mg feeding tube DAILY Isosource 1.5 Devon 0.07 gram-1.5 kcal/mL liquid 250 ml feeding tube 5X/DAY Primary Care Provider: Prema Archer Referrals: Prema Archer DO [Primary Care Provider] - 1-2 Weeks Activity Restrictions/Additional Instructions: Imaging confirms PEG tube in the correct location. Print Language: Hong Konger Disposition Disposition: Home, Self Care What to do if you have Problems For any increased pain, shortness of breath, bleeding, nausea or vomiting, chestpain, or any unexpected problems, contact your Primary Care Provider. Call [facility] ([phone]) or report tothe closest Emergency Room. Call 911 if necessary. 01/17/25 0732 Cosigner Signature (if applicable): CC: Dr. Prema Archer DO ~ Signed [facility]05-07-2025 History of Present illness Narrative* Martha Breen RN - 11/28/2024 10:15 AM EDT MEDICATION RECONCILIATION COMPLETED USING REM MED SHEETS. MED SHEETS TITLED "ACTIVE ORDERS OF 11/16/2024". MEDICATIONS NOT LISTED ON REM LIST MARKED FOR REVIEW. documented in this [id number] History of Present illness Narrative* Ashley Rowe MA - 11/26/2024 8:37 AM EDT Spoke with Deborah, she verbalized understanding, Faxed results to [phone]. * Prema Archer DO - 11/25/2024 6:20 PM EDT Please call and let Deborah know patient's TB screening is negative. documented in this [id number] NotePlease call and let Deborah know patient's TB screening is negative. AUTHENTICATED BY PREMA ARCHER ON 11/25/2024 18:20:[address] [place] [address] Ambulatory 11-19-2024 NoteSubjective Patient ID: Rome Castillo is a 53 y.o. male. Chief Complaint Patient presents with Cough X 1 day HPI Rome is a 53 year old male who presents from halfway with caregivers for cough. States cough began a day ago, and progressively worsening. Denies any ill contacts in halfway. Denies any fever. He is non verbal, all history obtained from caregivers. They note he has rhinorrhea as well as choking/gurgling noises on his sputum. Notes cough is worse at night. He does have history of dysphagia.oropharyngeal phase and had PEG tube placed 06/18/2024 and does not take anything orally. PMH of spastic diplegic cerebral palsy. The following portions of the patient's history were reviewed and updated as appropriate: allergies, current medications, past family history, past medical history, past social history, past surgical history, and problem list. 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 Allergies[2] Outpatient Medications as of 11/19/2024 Medication Sig acetaminophen (TYLENOL) 325 MG suppository Insert 1 (one) suppository (325 mg total) into the rectum every 4 (four) hours as needed for fever . acetaminophen (TYLENOL) 325 MG suppository Insert 1 (one) suppository (325 mg total) into the rectum every 4 (four) hours as needed for pain . bisacodyL (FLEET) 10 mg/30 mL Enem Insert 30 mL (10 mg total) into the rectum daily as needed (constipation) . ibuprofen (ADVIL,MOTRIN) 100 mg/5 mL suspension 10 mL (200 mg total) by Per G Tube route every 6 (six) hours as needed for pain . lactulose (CHRONULAC) 20 gram/30 mL Soln Take 15 mL (10 g total) per G-tube 2 (two) times a day . loratadine (CLARITIN) 10 mg tablet 1 (one) tablet (10 mg total) by Per G Tube route daily Crush tablet and mix with water. . mirtazapine (REMERON) 15 MG tablet 1 (one) tablet (15 mg total) by Per G Tube route nightly . ondansetron (ZOFRAN) 4 MG tablet Take 1 (one) tablet (4 mg total) by mouth every 8 (eight) hours as needed for nausea . pantoprazole (PROTONIX) 40 mg GrPS 1 (one) packet (40 mg total) by Per G Tube route 2 (two) times a day . polyethylene glycol (MIRALAX) 17 gram powder 17 (seventeen) g by Per G Tube route daily . risperiDONE (RISPERDAL) 2 MG tablet 1 (one) tablet (2 mg total) by Per G Tube route daily . valproic acid, as sodium salt, (DEPAKENE) 250 mg/5 mL (5 mL) Soln Give 5 mL (250 mg) per PEG tube in the morning. Give 10 mL (500 mg) per PEG tube at bedtime. Reasons: epilepsy. Review of Systems Objective BP 110/78 (Patient Position: Sitting) Comment: manual Pulse 66 Temp 98.2 degrees F (36.8 degrees C) Resp 18 Ht 5' 2" Wt 52.2 kg (115 lb) SpO2 94% BMI 21.03 kg/m Physical Exam Constitutional: Comments: In electric wheelchair HENT: Right Ear: External ear normal. There is impacted cerumen. Left Ear: Tympanic membrane, ear canal and external ear normal. Mouth/Throat: Mouth: Mucous membranes are moist. Cardiovascular: Rate and Rhythm: Normal rate and regular rhythm. Heart sounds: Normal heart sounds. Pulmonary: Effort: Pulmonary effort is normal. Comments: Coarse breath sounds throughout Coarse cough, audible gagging/gurgling with sputum Musculoskeletal: Comments: Contractions of upper extremities Lymphadenopathy: Cervical: No cervical adenopathy. Skin: General: Skin is warm and dry. Neurological: Mental Status: He is alert. Psychiatric: Comments: He is non communicative Assessment/Plan: Diagnoses and all orders for this visit: Cough, unspecified type - XR Chest AP/PA and LAT; Future Spastic diplegic cerebral palsy (HCC) Dysphagia, oropharyngeal phase Discussed with caregivers, due to his history of dysphagia, and audible gagging on sputum, coarse breath sounds would like to obtain CXR for further evaluation. Encouraged to continue monitoring symptoms, and notifying office if additional symptoms would present. Once imaging comes back will notify with further plan of care as I have high concern for aspiration PNA on secretions. Discussed warning signs and symptoms and when to follow up or present to ER, they are to notify if additional symptoms present. Electronically signed by RIC Figueredo 1:26 PM [1] Social History Tobacco Use Smoking status: Never Smokeless tobacco: Never Vaping Use Vaping status: Unknown Substance Us (more content not included)...[facility]04-28-2025 History of Present illness Narrative* Mishel Camara CNP - 11/19/2024 1:08 PM EDT Images from the original note were not included. Subjective Patient ID: Rome Castillo is a 53 y.o. male. Chief Complaint Patient presents with Cough X 1 day HPI Rome is a 53 year old male who presents from halfway with caregivers for cough. States cough began a day ago, and progressively worsening. Denies any ill contacts in halfway. Denies any fever.He is non verbal, all history obtained from caregivers. They note he has rhinorrhea as well as choking/gurgling noises on his sputum. Notes cough is worse at night. He does have history of dysphagia.oropharyngeal phase and had PEG tube placed 06/18/2024 and does not take anything orally. PMH of spastic diplegic cerebral palsy. The following portions of the patient's history were reviewed and updated as appropriate: allergies, current medications, past family history, past medical history, past social history, past surgicalhistory, and problem list. 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 Allergies[2] Outpatient Medications as of 11/19/2024 Medication Sig acetaminophen (TYLENOL) 325 MG suppository Insert 1 (one) suppository (325 mg total) into the rectum every 4 (four) hours as needed for fever . acetaminophen (TYLENOL) 325 MG suppository Insert 1 (one) suppository (325 mg total) into the rectum every 4 (four) hours as needed for pain . bisacodyL (FLEET) 10 mg/30 mL Enem Insert 30 mL (10 mg total) into the rectum daily as needed (constipation) . ibuprofen (ADVIL,MOTRIN) 100 mg/5 mL suspension 10 mL (200 mg total) by Per G Tube route every 6 (six) hours as needed for pain . lactulose (CHRONULAC) 20 gram/30 mL Soln Take 15 mL (10 g total) per G-tube 2 (two) times a day . loratadine (CLARITIN) 10 mg tablet 1 (one) tablet (10 mg total) by Per G Tube route daily Crush tablet and mix with water. . mirtazapine (REMERON) 15 MG tablet 1 (one) tablet (15 mg total) by Per G Tube route nightly . ondansetron (ZOFRAN) 4 MG tablet Take 1 (one) tablet (4 mg total) by mouth every 8 (eight) hours asneeded for nausea . pantoprazole (PROTONIX) 40 mg GrPS 1 (one) packet (40 mg total) by Per G Tube route 2 (two) times aday . polyethylene glycol (MIRALAX) 17 gram powder 17 (seventeen) g by Per G Tube route daily . risperiDONE (RISPERDAL) 2 MG tablet 1 (one) tablet (2 mg total) by Per G Tube route daily . valproic acid, as sodium salt, (DEPAKENE) 250 mg/5 mL (5 mL) Soln Give 5 mL (250 mg) per PEG tube in the morning. Give 10 mL (500 mg) per PEG tube at bedtime. Reasons: epilepsy. Review of Systems Objective BP 110/78 (Patient Position: Sitting) Comment: manual Pulse 66 Temp 98.2 F (36.8 C) Resp 18 Ht 5' 2" Wt 52.2 kg (115 lb) SpO2 94% BMI 21.03 kg/m Physical Exam Constitutional: Comments: In electric wheelchair HENT: Right Ear: External ear normal. There is impacted cerumen. Left Ear: Tympanic membrane, ear canal and external ear normal. Mouth/Throat: Mouth: Mucous membranes are moist. Cardiovascular: Rate and Rhythm: Normal rate and regular rhythm. Heart sounds: Normal heart sounds. Pulmonary: Effort: Pulmonary effort is normal. Comments: Coarse breath sounds throughout Coarse cough, audible gagging/gurgling with sputum Musculoskeletal: Comments: Contractions of upper extremities Lymphadenopathy: Cervical: No cervical adenopathy. Skin: General: Skin is warm and dry. Neurological: Mental Status: He is alert. Psychiatric: Comments: He is non communicative Assessment/Plan: Diagnoses and all orders for this visit: Cough, unspecified type - XR Chest AP/PA and LAT; Future Spastic diplegic cerebral palsy (HCC) Dysphagia, oropharyngeal phase Discussed with caregivers, due to his history of dysphagia, and audible gagging on sputum, coarse breath sounds would like to obtain CXR for further evaluation. Encouraged to continue monitoring symptoms, and notifying office if additional symptoms would present. Once imaging comes back will notifywith further plan of care as I have high concern for aspiration PNA on secretions. Discussed warning signs and symptoms and when to follow up or present to ER, they are to notify if additional symptoms present. 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 Monitor yearly. 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 Monitor. 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 I have confirmed and edited as necessary the relevant HPI, ophthalmic history, ROS, and the neuro exam findings as obtained by others. I have seen and examined Rome B Jonathan. I have discussed the case and the management of this patient's care with the Resident/Fellow, if applicable. I also have reviewed and agree with the assessment and plan as stated above and agree withall of its relevant components. [facility] NoteHNO ID: [id number] Author: STEPHEN ORTEGA II, BARBIE Service: ? 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 Monitor yearly. 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 Monitor. 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 I have confirmed and edited as necessary the relevant HPI, ophthalmic history, ROS, and the neuro exam findings as obtained by others. I have seen and examined Rome Castillo. I have discussed the case and the management of this patient's care with the Resident/Fellow, if applicable. 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 Monitor yearly. 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 Monitor. 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 I have confirmed and edited as necessary the relevant HPI, ophthalmic history, ROS, and the neuro exam findings as obtained by others. I have seen and examined Rome Castillo. I have discussed the case and the management of this patient's care with the Resident/Fellow, if applicable. I also have reviewed and agree with the assessment and plan as stated above and agree withall of its relevant components. [facility] History of Present illness Narrative* Bonita Culver LPN - 10/25/2024 11:17 AM EDT Documentation received for pt. Provider reviewed and signed. [facility]. documented in this [id number] Telephone encounter Note* Telephone Encounter - Olga Lidia Villalobos LPN - 09/21/2024 4:43 PM EST Rome is requesting a refill for Requested Prescriptions Pending Prescriptions Disp Refills valproic acid, as sodium salt, (DEPAKENE) 250 mg/5 mL (5 mL) Soln Sig: Take 5 mL (250 mg total) by mouth every 8 (eight) hours Give 5 mL (250 mg) per PEG tube in themorning. Give 10 mL (500 mg) per PEG tube at bedtime. Reasons: epilepsy. Last refill: historical Last appt: 08/28/2024 Upcoming appt (when is it due or is it scheduled): 02/21/2025 Follow up: Refill pending for review without additional follow up based on information above. [id number] Miscellaneous Notes* Telephone Encounter - Olga Lidia Villalobos LPN - 09/21/2024 4:43 PM EST Rome is requesting a refill for Requested Prescriptions Pending Prescriptions Disp Refills valproic acid, as sodium salt, (DEPAKENE) 250 mg/5 mL (5 mL) Soln Sig: Take 5 mL (250 mg total) by mouth every 8 (eight) hours Give 5 mL (250 mg) per PEG tube in themorning. Give 10 mL (500 mg) per PEG tube at bedtime. Reasons: epilepsy. Last refill: historical Last appt: 08/28/2024 Upcoming appt (when is it due or is it scheduled): 02/21/2025 Follow up: Refill pending for review without additional follow up based on information above. documented in this [id number] Note* Addendum Note - Prema Archer DO - 09/18/2024 8:49 AM ESTAddended by: PREMA ARCHER on: 09/18/2024 08:49 AM Modules accepted: Orders [id number] Miscellaneous Notes* Addendum Note - Prema Archer DO - 09/18/2024 8:49 AM ESTAddended by: PREMA ARCHER on: 09/18/2024 08:49 AM Modules accepted: Orders * Assessment & Plan Note - Prema Archer DO - 09/01/2024 4:45 PM EST Associated Problem(s): Spastic diplegic cerebral palsy (HCC) Patient is a halfway resident and completely dependent on nursing staff for ADLs, IADLs. Nonverbal, nonambulatory. Nursing staff to monitor and update any changes in medical condition, make appointment for any acute problem. * Assessment & Plan Note - Prema Archer DO - 09/01/2024 4:42 PM EST Associated Problem(s): GERD (gastroesophageal reflux disease) Takes omeprazole 40 mg twice daily. Currently using capsules, but nursing staff reports capsule contents are difficult to mix and put through tube. Will switch to tablets, which only, 20 mg. - Continue omeprazole 40 mg (2 tablets) twice daily, crush and mix with water for administration inG-tube * Assessment & Plan Note - Prema Archer DO - 09/01/2024 4:40 PM EST Associated Problem(s): Profound intellectual disability Follows with psychiatry, Dr. Maohney, on mirtazapine and risperidone. * Assessment & Plan Note - Prema Archer DO - 09/01/2024 4:39 PM EST Associated Problem(s): Status post gastrostomy (HCC) G-tube dependence since 05/2024. Feed is Isosource 1.5 kcal 5 times a day. Hydration with 20 mL water flush before and after meds, 60 mL water flush feeds. * Assessment & Plan Note - Prema Archer DO - 09/01/2024 4:38 PM EST Associated Problem(s): Constipation Daily lactulose and MiraLAX are administered for this. Continue and monitor stools. * Assessment & Plan Note - Prema Archer DO - 09/01/2024 4:34 PM EST Associated Problem(s): Dysphagia, oropharyngeal phase Barium swallow 03/30/2024 with SILENT ASPIRATION WITH NECTAR THICK LIQUIDS. Very limited study due to patient's condition. PEG tube placed 06/18/2024 at , but patient pulled it out and was hospitalized for exploratory laparotomy and placement of new tube. He has not been cleared by speech therapy to take any oral food. - Referral to home health speech therapy for ongoing treatment and evaluation documented in this [id number] Evaluation + Plan note* Assessment & Plan Note - Prema Archer DO - 09/01/2024 4:45 PM EST Associated Problem(s): Spastic diplegic cerebral palsy (HCC) Patient is a halfway resident and completely dependent on nursing staff for ADLs, IADLs. Nonverbal, nonambulatory. Nursing staff to monitor and update any changes in medical condition, make appointment for any acute problem. [id number] Miscellaneous Notes* Assessment & Plan Note - Prema Archer DO - 09/01/2024 4:45 PM ESTAssociated Problem(s): Spastic diplegic cerebral palsy (HCC) Patient is a halfway resident and completely dependent on nursing staff for ADLs, IADLs. Nonverbal, nonambulatory. Nursing staff to monitor and update any changes in medical condition, make appointment for any acute problem. * Assessment & Plan Note - Prema Archer DO - 09/01/2024 4:42 PM EST Associated Problem(s): GERD (gastroesophageal reflux disease) Takes omeprazole 40 mg twice daily. Currently using capsules, but nursing staff reports capsule contents are difficult to mix and put through tube. Will switch to tablets, which only, 20 mg. - Continue omeprazole 40 mg (2 tablets) twice daily, crush and mix with water for administration inG-tube * Assessment & Plan Note - Prema Archer DO - 09/01/2024 4:40 PM EST Associated Problem(s): Profound intellectual disability Follows with psychiatry, Dr. Mahoney, on mirtazapine and risperidone. * Assessment & Plan Note - Prema Archer DO - 09/01/2024 4:39 PM EST Associated Problem(s): Status post gastrostomy (HCC) G-tube dependence since 05/2024. Feed is Isosource 1.5 kcal 5 times a day. Hydration with 20 mL water flush before and after meds, 60 mL water flush feeds. * Assessment & Plan Note - Prema Archer DO - 09/01/2024 4:38 PM EST Associated Problem(s): Constipation Daily lactulose and MiraLAX are administered for this. Continue and monitor stools. * Assessment & Plan Note - Prema Archer DO - 09/01/2024 4:34 PM EST Associated Problem(s): Dysphagia, oropharyngeal phase Barium swallow 03/30/2024 with SILENT ASPIRATION WITH NECTAR THICK LIQUIDS. Very limited study due to patient's condition. PEG tube placed 06/18/2024 at , but patient pulled it out and was hospitalized for exploratory laparotomy and placement of new tube. He has not been cleared by speech therapy to take any oral food. - Referral to home health speech therapy for ongoing treatment and evaluation documented in this [id number] Evaluation + Plan note* Assessment & Plan Note - Prema Archer DO - 09/01/2024 4:42 PM EST Associated Problem(s): GERD (gastroesophageal reflux disease) Takes omeprazole 40 mg twice daily. Currently using capsules, but nursing staff reports capsule contents are difficult to mix and put through tube. Will switch to tablets, which only, 20 mg. - Continue omeprazole 40 mg (2 tablets) twice daily, crush and mix with water for administration inG-tube [id number] Evaluation + Plan note* Assessment & Plan Note - Prema Archer DO - 09/01/2024 4:40 PM ESTAssociated Problem(s): Profound intellectual disability Follows with psychiatry, Dr. Mahoney, on mirtazapine and risperidone. [id number] Evaluation + Plan note* Assessment & Plan Note - Prema Archer DO - 09/01/2024 4:39 PM ESTAssociated Problem(s): Status post gastrostomy (HCC) G-tube dependence since 05/2024. Feed is Isosource 1.5 kcal 5 times a day. Hydration with 20 mL water flush before and after meds, 60 mL water flush feeds. [id number] Evaluation + Plan note* Assessment & Plan Note - Prema Archer DO - 09/01/2024 4:38 PM ESTAssociated Problem(s): Constipation Daily lactulose and MiraLAX are administered for this. Continue and monitor stools. [id number] Evaluation + Plan note* Assessment & Plan Note - Prema Archer DO - 09/01/2024 4:34 PM ESTAssociated Problem(s): Dysphagia, oropharyngeal phase Barium swallow 03/30/2024 with SILENT ASPIRATION WITH NECTAR THICK LIQUIDS. Very limited study due to patient's condition. PEG tube placed 06/18/2024 at , but patient pulled it out and was hospitalized for exploratory laparotomy and placement of new tube. He has not been cleared by speech therapy to take any oral food. - Referral to home health speech therapy for ongoing treatment and evaluation [id number] NoteAssessment/Plan: Dysphagia, oropharyngeal phase Barium swallow 03/30/2024 with SILENT ASPIRATION WITH NECTAR THICK LIQUIDS. Very limited study due to patient's condition. PEG tube placed 06/18/2024 at , but patient pulled it out and was hospitalized for exploratory laparotomy and placement of new tube. He has not been cleared by speech therapy to take any oral food. - Referral to home health speech therapy for ongoing treatment and evaluation Constipation Daily lactulose and MiraLAX are administered for this. Continue and monitor stools. Status post gastrostomy (HCC) G-tube dependence since 05/2024. Feed is Isosource 1.5 kcal 5 times a day. Hydration with 20 mL water flush before and after meds, 60 mL water flush feeds. Profound intellectual disability Follows with psychiatry, Dr. Mahoney, on mirtazapine and risperidone. GERD (gastroesophageal reflux disease) Takes omeprazole 40 mg twice daily. Currently using capsules, but nursing staff reports capsule contents are difficult to mix and put through tube. Will switch to tablets, which only, 20 mg. - Continue omeprazole 40 mg (2 tablets) twice daily, crush and mix with water for administration in G-tube Spastic diplegic cerebral palsy (HCC) Patient is a halfway resident and completely dependent on nursing staff for ADLs, IADLs. Nonverbal, nonambulatory. Nursing staff to monitor and update any changes in medical condition, make appointment for any acute problem. Subjective: Rome Castillo is a 53 y.o. male Chief Complaint Patient presents with Establish Care Orders for GI for transfering back home from facility Patient presents to establish care. He is a resident of halfway and is accompanied by halfway nursing staff. Previous PCP was Dr. Haines at . PMH: Cerebral palsy, seizure disorder, profound intellectual disability, G-tube dependence due to dysphagia, seasonal allergies. Patient is G-tube dependent since 05/2024 after having coughing episodes with drinking and eating) swallow which showed moderate to severe oropharyngeal dysphagia. PEG tube placed at on 06/18/2024. Patient was hospitalized 2 days after placement for traumatic removal when he pulled out his own tube. He underwent exploratory laparotomy, repair, and new tube placement. He was discharged to a rehab facility and has just returned to his halfway. He needs new orders specifically for medication administration: Mix meds with water Water flush 20 mL with meds He has also not been cleared by speech therapy to take any oral food. He needs a referral to continue speech therapy reevaluation when appropriate. Specialists: Psychiatric - Dr. Mahoney General surgery - Dr. Garcia Ophthalmology - Dr. Ortega Dentist - [facility] Diet: tube feed, isosource 1.5 devon x 5/day Exercise: wheelchair bound Hydration: 20 mL flush before and after meds, 60 mL with feeds Caffeine: none The following portions of the patient's history were reviewed and updated as appropriate: allergies, current medications, past family history, past medical history, past social history, past surgical history and problem list. Review of Systems Objective: PACU Vitals 08/28/24 1106 Pulse: 78 Resp: 17 Temp: 96.9 degrees F (36.1 degrees C) SpO2: 94% Physical Exam Constitutional: General: He is not in acute distress. Appearance: He is not ill-appearing, toxic-appearing or diaphoretic. Comments: In electric wheelchair HENT: Head: Normocephalic and atraumatic. Mouth/Throat: Mouth: Mucous membranes are moist. Cardiovascular: Rate and Rhythm: Normal rate and regular rhythm. Heart sounds: No murmur heard. No gallop. Pulmonary: Effort: No respiratory distress. Breath sounds: Normal breath sounds. No wheezing or rales. Musculoskeletal: Right lower leg: No edema. Left lower leg: No edema. Comments: Contractions of upper extremities Skin: General: Skin is warm and dry. Coloration: Skin is not jaundiced or pale. Neurological: Mental Status: He is alert. Psychiatric: Mood and Affect: Mood normal. Speech: He is noncommunicative. For any new medications prescribed today, patient was educated about indications for the medication, how to take the medication and potential side effects of the medications. My ongoing relationship with Rome Castillo requires continued responsibility and cognitive effort of being the focal point for all services related to chronic condition(s). Prema Archer DO AUTHENTICATED BY PREMA ARCHER, ON 09/18/2024 08:49:16[facility] 08-28-2024 History of Present illness Narrative* Prema Archer DO - 08/28/2024 11:03 AM EST Assessment/Plan: Dysphagia, oropharyngeal phase Barium swallow 03/30/2024 with SILENT ASPIRATION WITH NECTAR THICK LIQUIDS. Very limited study due to patient's condition. PEG tube placed 06/18/2024 at , but patient pulled it out and was hospitalized for exploratory laparotomy and placement of new tube. He has not been cleared by speech therapy to take any oral food. - Referral to home health speech therapy for ongoing treatment and evaluation Constipation Daily lactulose and MiraLAX are administered for this. Continue and monitor stools. Status post gastrostomy (HCC) G-tube dependence since 05/2024. Feed is Isosource 1.5 kcal 5 times a day. Hydration with 20 mL water flush before and after meds, 60 mL water flush feeds. Profound intellectual disability Follows with psychiatry, Dr. Mahoney, on mirtazapine and risperidone. GERD (gastroesophageal reflux disease) Takes omeprazole 40 mg twice daily. Currently using capsules, but nursing staff reports capsule contents are difficult to mix and put through tube. Will switch to tablets, which only, 20 mg. - Continue omeprazole 40 mg (2 tablets) twice daily, crush and mix with water for administration inG-tube Spastic diplegic cerebral palsy (HCC) Patient is a halfway resident and completely dependent on nursing staff for ADLs, IADLs. Nonverbal, nonambulatory. Nursing staff to monitor and update any changes in medical condition, make appointment for any acute problem. Subjective: Rome Castillo is a 53 y.o. male Chief Complaint Patient presents with Establish Care Orders for GI for transfering back home from facility Patient presents to establish care. He is a resident of halfway and is accompanied by group homenursing staff. Previous PCP was Dr. Haines at . PMH: Cerebral palsy, seizure disorder, profound intellectual disability, G-tube dependence due to dysphagia, seasonal allergies. Patient is G-tube dependent since 05/2024 after having coughing episodes with drinking and eating) swallow which showed moderate to severe oropharyngeal dysphagia. PEG tube placed at on 06/18/2024. Patient was hospitalized 2 days after placement for traumatic removal when he pulled out his own tube. He underwent exploratory laparotomy, repair, and new tube placement. He was discharged to a rehab facility and has just returned to his halfway. He needs new orders specifically for medication administration: Mix meds with water Water flush 20 mL with meds He has also not been cleared by speech therapy to take any oral food. He needs a referral to continue speech therapy reevaluation when appropriate. Specialists: Psychiatric - Dr. Mahoney General surgery - Dr. Garcia Ophthalmology - Dr. Ortega Dentist - [facility] Diet: tube feed, isosource 1.5 devon x 5/day Exercise: wheelchair bound Hydration: 20 mL flush before and after meds, 60 mL with feeds Caffeine: none The following portions of the patient's history were reviewed and updated as appropriate: allergies, current medications, past family history, past medical history, past social history, past surgicalhistory and problem list. Review of Systems Objective: PACU Vitals 08/28/24 1106 Pulse: 78 Resp: 17 Temp: 96.9 F (36.1 C) SpO2: 94% Physical Exam Constitutional: General: He is not in acute distress. Appearance: He is not ill-appearing, toxic-appearing or diaphoretic. Comments: In electric wheelchair HENT: Head: Normocephalic and atraumatic. Mouth/Throat: Mouth: Mucous membranes are moist. Cardiovascular: Rate and Rhythm: Normal rate and regular rhythm. Heart sounds: No murmur heard. No gallop. Pulmonary: Effort: No respiratory distress. Breath sounds: Normal breath sounds. No wheezing or rales. Musculoskeletal: Right lower leg: No edema. Left lower leg: No edema. Comments: Contractions of upper extremities Skin: General: Skin is warm and dry. Coloration: Skin is not jaundiced or pale. Neurological: Mental Status: He is alert. Psychiatric: Mood and Affect: Mood normal. Speech: He is noncommunicative. For any new medications prescribed today, patient was educated about indications for the medication, how to take the medication and potential side effects of the medications. My ongoing relationship with Rome Castillo requires continued responsibility and cognitive effort of being the focal point for all services related to chronic condition(s). Prema Archer DO documented in this [id number] History of Present illness Narrative* Prema Archer DO - 08/28/2024 11:03 AM EST Assessment/Plan: Dysphagia, oropharyngeal phase Barium swallow 03/30/2024 with SILENT ASPIRATION WITH NECTAR THICK LIQUIDS. Very limited study due to patient's condition. PEG tube placed 06/18/2024 at , but patient pulled it out and was hospitalized for exploratory laparotomy and placement of new tube. He has not been cleared by speech therapy to take any oral food. - Referral to home health speech therapy for ongoing treatment and evaluation Constipation Daily lactulose and MiraLAX are administered for this. Continue and monitor stools. Status post gastrostomy (HCC) G-tube dependence since 05/2024. Feed is Isosource 1.5 kcal 5 times a day. Hydration with 20 mL water flush before and after meds, 60 mL water flush feeds. Profound intellectual disability Follows with psychiatry, Dr. Mahoney, on mirtazapine and risperidone. GERD (gastroesophageal reflux disease) Takes omeprazole 40 mg twice daily. Currently using capsules, but nursing staff reports capsule contents are difficult to mix and put through tube. Will switch to tablets, which only, 20 mg. - Continue omeprazole 40 mg (2 tablets) twice daily, crush and mix with water for administration inG-tube Spastic diplegic cerebral palsy (HCC) Patient is a halfway resident and completely dependent on nursing staff for ADLs, IADLs. Nonverbal, nonambulatory. Nursing staff to monitor and update any changes in medical condition, make appointment for any acute problem. Subjective: Rome Castillo is a 53 y.o. male Chief Complaint Patient presents with Establish Care Orders for GI for transfering back home from facility Patient presents to establish care. He is a resident of halfway and is accompanied by group homenursing staff. Previous PCP was Dr. Haines at . PMH: Cerebral palsy, seizure disorder, profound intellectual disability, G-tube dependence due to dysphagia, seasonal allergies. Patient is G-tube dependent since 05/2024 after having coughing episodes with drinking and eating) swallow which showed moderate to severe oropharyngeal dysphagia. PEG tube placed at on 06/18/2024. Patient was hospitalized 2 days after placement for traumatic removal when he pulled out his own tube. He underwent exploratory laparotomy, repair, and new tube placement. He was discharged to a rehab facility and has just returned to his halfway. He needs new orders specifically for medication administration: Mix meds with water Water flush 20 mL with meds He has also not been cleared by speech therapy to take any oral food. He needs a referral to continue speech therapy reevaluation when appropriate. Specialists: Psychiatric - Dr. Mahoney General surgery - Dr. Garcia Ophthalmology - Dr. Ortega Dentist - [facility] Diet: tube feed, isosource 1.5 devon x 5/day Exercise: wheelchair bound Hydration: 20 mL flush before and after meds, 60 mL with feeds Caffeine: none The following portions of the patient's history were reviewed and updated as appropriate: allergies, current medications, past family history, past medical history, past social history, past surgicalhistory and problem list. Review of Systems Objective: PACU Vitals 08/28/24 1106 Pulse: 78 Resp: 17 Temp: 96.9 F (36.1 C) SpO2: 94% Physical Exam Constitutional: General: He is not in acute distress. Appearance: He is not ill-appearing, toxic-appearing or diaphoretic. Comments: In electric wheelchair HENT: Head: Normocephalic and atraumatic. Mouth/Throat: Mouth: Mucous membranes are moist. Cardiovascular: Rate and Rhythm: Normal rate and regular rhythm. Heart sounds: No murmur heard. No gallop. Pulmonary: Effort: No respiratory distress. Breath sounds: Normal breath sounds. No wheezing or rales. Musculoskeletal: Right lower leg: No edema. Left lower leg: No edema. Comments: Contractions of upper extremities Skin: General: Skin is warm and dry. Coloration: Skin is not jaundiced or pale. Neurological: Mental Status: He is alert. Psychiatric: Mood and Affect: Mood normal. Speech: He is noncommunicative. For any new medications prescribed today, patient was educated about indications for the medication, how to take the medication and potential side effects of the medications. My ongoing relationship with Rome Castillo requires continued responsibility and cognitive effort of being the focal point for all services related to chronic condition(s). Prema Archer DO documented in this [id number] [facility] PATIENT: Rome Castillo DATE / TIME: 08/24/24 12:34 PM POS: Office AGE: 53 y.o. : 1970 RACE: [1] SEX: male PCP: Cruzito Doe MD REFERRAL: No ref. provider found TOS: SUBJECTIVE: 53-year-old male with history of cerebral palsy, nonverbal at baseline, is here for follow-up after exploratory laparotomy with James patch repair of stomach, and Amauri gastrostomy tube placement on 06/20 due to a dislodged PEG tube. Patient missed several follow-up appointments while at his nursing facility after being discharged from the hospital, but was recently transferred back to his halfway, and is now here for follow-up. Per the braze operator present with the patient, the patient has been tolerating tube feeds well, without any obvious distress. She does report high residuals after tube feeds, which improved as the day progresses. Denies any symptoms of nausea, vomiting, or concerns for aspiration. He did apparently have his gastrostomy tube exchange at the nursing facility to a 14 Canadian tube with no clamp. OBJECTIVE: BP 106/62 Pulse 92 SpO2 92% Abdomen soft, nontender, nondistended. Incision well-healed. G-tube in place with tube feeds in the tube. Mild surrounding erythema around the G-tube site, with no purulent drainage, induration, or fluctuance. ASSESSMENT: 53-year-old male here for follow-up after exploratory laparotomy with James patch repair of the stomach, and Amauri tube gastrostomy, due to a dislodged PEG tube PLAN: Patient appears to be progressing appropriately after the surgery Per his aide's request the 14 Canadian gastrostomy tube was exchanged for an 18 Canadian gastrostomy tube, with a clamp. After the exchange I was able to easily aspirate back to peds, and flush the tube, confirming appropriate placement Okay to continue bolus tube feeds I instructed the patient's aide to return to the office if patient develops any signs of nausea, vomiting, or intolerance of tube feeds He may benefit from Reglan in the future if his residuals remain high, and he is unable to tolerate tube feeds Otherwise follow-up with us as needed Niraj Garcia DO General Surgery 12:40 PM 08/24/24 AUTHENTICATED BY NIRAJ GARCIA, ON 08/24/2024 12:41:09[facility]01-31-2025 History of Present illness Narrative* Niraj Garcia DO - 08/24/2024 12:34 PM EST [facility] PATIENT: Rome Castillo DATE / TIME: 08/24/24 12:34 PM POS: Office AGE: 53 y.o. : 1970 RACE: [1] SEX: male PCP: Cruzito Doe MD REFERRAL: No ref. provider found TOS: SUBJECTIVE: 53-year-old male with history of cerebral palsy, nonverbal at baseline, is here for follow-up after exploratory laparotomy with James patch repair of stomach, and Amauri gastrostomy tube placement on 06/20 due to a dislodged PEG tube. Patient missed several follow-up appointments while at his nursing facility after being discharged from the hospital, but was recently transferred back to his halfway, and is now here for follow-up. Per the braze operator present with the patient, the patient has been tolerating tube feeds well, without any obvious distress. She does report high residuals after tube feeds, which improved as the day progresses. Denies any symptoms of nausea, vomiting,or concerns for aspiration. He did apparently have his gastrostomy tube exchange at the nursing facility to a 14 Canadian tube with no clamp. OBJECTIVE: BP 106/62 Pulse 92 SpO2 92% Abdomen soft, nontender, nondistended. Incision well-healed. G-tube in place with tube feeds in thetube. Mild surrounding erythema around the G-tube site, with no purulent drainage, induration, or fluctuance. ASSESSMENT: 53-year-old male here for follow-up after exploratory laparotomy with James patch repair of the stomach, and Amauri tube gastrostomy, due to a dislodged PEG tube PLAN: Patient appears to be progressing appropriately after the surgery Per his aide's request the 14 Canadian gastrostomy tube was exchanged for an 18 Canadian gastrostomy tube, with a clamp. After the exchange I was able to easily aspirate back to peds, and flush the tube,confirming appropriate placement Okay to continue bolus tube feeds I instructed the patient's aide to return to the office if patient develops any signs of nausea, vomiting, or intolerance of tube feeds He may benefit from Reglan in the future if his residuals remain high, and he is unable to toleratetube feeds Otherwise follow-up with us as needed Niraj Garcia DO General Surgery 12:40 PM 08/24/24 documented in this [id number] History of Present illness Narrative* Aida Goel - 07/26/2024 12:00 AM EST [facility] NOTE NAME: ROME CASTILLO [facility] NO.: [id number] DATE OF SERVICE: 07/26/2024 ATTENDING PHYSICIAN: Aida Goel MD [facility] Followup of multiple medical chronic issues/skilled care. He is currently up in his wheelchair in his room. He is alert and looking around. He is nonverbal. Nursing reports no new problems. MEDICATIONS: Reviewed. EXAMINATION: Afebrile, vital signs stable. HEENT: Intact. Lungs: Clear. Heart: Regular. Abdomen: Soft, nontender. Gastrostomy feeding tube present. Extremities: No edema. 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 IMPRESSIONS: 1. Status post recent sepsis secondary to gastric perforation with pneumoperitoneum - status post laparotomy with James patch repair with reinsertion of gastrostomy tube - continue to monitor his GI symptoms. He will follow up with Surgery Service as an outpatient. He has been tolerating his tube feedings. 2. Cerebral palsy with seizure disorder - neurologically stable. Continue anticonvulsant therapy. Maintain current course of therapy. The goal is for him to return back to his halfway if at all possible. DICTATED BY: MD ASHWINI English/ELAINE JOB# [id number] [facility] NoteHNO ID: [id number] Author: AIDA GOEL, ? Service: ? Author Type: Physician Type: Progress Notes Filed: 07/27/2024 16:27 Note Text: [facility] NOTE NAME: ROME CASTILLO [facility] NO.: [id number] DATE OF SERVICE: 07/26/2024 ATTENDING PHYSICIAN: Aida Goel MD [facility] Followup of multiple medical chronic issues/skilled care. He is currently up in his wheelchair in his room. He is alert and looking around. He is nonverbal. Nursing reports no new problems. MEDICATIONS: Reviewed. EXAMINATION: Afebrile, vital signs stable. HEENT: Intact. Lungs: Clear. Heart: Regular. Abdomen: Soft, nontender. Gastrostomy feeding tube present. Extremities: No edema. 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 IMPRESSIONS: 1. Status post recent sepsis secondary to gastric perforation with pneumoperitoneum - status post laparotomy with James patch repair with reinsertion of gastrostomy tube - continue to monitor his GI symptoms. He will follow up with Surgery Service as an outpatient. He has been tolerating his tube feedings. 2. Cerebral palsy with seizure disorder - neurologically stable. Continue anticonvulsant therapy. Maintain current course of therapy. The goal is for him to return back to his halfway if at all possible. DICTATED BY: MD EDDIE English JOB# [id number] [facility]12-05-2024 History of Present illness Narrative* Aida Goel - 06/28/2024 12:00 AM EST [facility] NOTE NAME: ROME CASTILLO [facility] NO.: [id number] DATE OF SERVICE: 06/28/2024 ATTENDING PHYSICIAN: Aida Goel MD [facility] READMISSION HISTORY AND PHYSICAL: HISTORY OF PRESENT ILLNESS: The patient is a 53-year-old male who is admitted back to us from [facility] with a diagnosis of sepsis secondary to gastric perforation, status post exploratory laparotomy with James patch repair of gastric perforation and gastrostomy tube placement, acute hypoxic respiratory failure, electrolyte imbalance with hypernatremia, dysphagia with status post recent placement of gastrostomy feeding tube, cerebral palsy with spastic quadriparesis and seizure disorder, generalized contractures, and generalized weakness and debility. The patient had recently undergone outpatient placement of gastrostomy feeding tube due to dysphagia. However, he was admitt ed back to the hospital after accidental displacement of his gastrostomy feeding tube. Evaluation did reveal findings consistent with pneumoperitoneum consistent with gastric perforation. He did undergo exploratory laparotomy with James patch repair with a gastric perforation and reinsertion of the gastrostomy feeding tube. He did receive a course of IV antibiotic therapy and was also on hyperalimentation. He was also found to have acute hypoxic respiratory failure. He had been having difficulty with some secretions and was found to have atelectasis. This improved during the course of his hos pitalization. Laboratory testing also revealed hyponatremia, for which he was given appropriate IV fluids. His condition was stabilized and improved and he is now admitted back to our facility for continued therapy prior to eventually returning back to his halfway. REVIEW OF SYSTEMS: Patient is currently lying in bed. He is awake, but nonverbal. He is unable to find any information or review of systems. Nursing states that he has had a quiet night and no issuessince returning back from the hospital. He has been tolerating his tube feedings. No reports of anyrespiratory distress, obvious pain or discomfort, nausea, vomiting, or bleeding. SOCIAL/FUNCTIONAL HISTORY: He does not smoke or abuse alcohol. MEDICATIONS: Omeprazole 40 mg b.i.d., divalproex 500 mg at bedtime and 250 mg q.a.m., ibuprofen p.r.n., lactulose 15 mL b.i.d., loratadine 10 mg daily, mirtazapine 15 mg at bedtime, MiraLAX daily, Risperdal 2 mg daily. ALLERGIES: No known drug allergies. EXAMINATION: Afebrile, vital signs stable. He is in no distress. He does appear chronically ill. Heis contracted. HEENT: Sclerae nonicteric. Ears intact. Lungs: Clear, though poor respiratory effort. Heart: Regular. Abdomen: Soft, nontender. Gastrostomy feeding tube present. He does have an abdominal binder. Extremities: No edema. 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 IMPRESSION: 1. Sepsis secondary to gastric perforation with pneumoperitoneum-he is status post exploratory laparotomy with James patch repair of the perforation with reinsertion of the gastrostomy tube after accidental dislodgement. He did receive course of antibiotic therapy while in the hospital. He currently is tolerating his tube feedings. He did receive a course of hyperalimentation while in the hospital. We will continue to monitor his GI symptoms. Maintain current Protonix b.i.d. 2. Acute hypoxic respiratory failure-resolved. Continue to monitor his respiratory status closely. 3. Electrolyte imbalance with hyponatremia-he is given appropriate IV fluids while in the hospital.We will obtain follow-up BMP, monitor his sodium and electrolytes and renal function closely. 4. Cerebral palsy with seizure disorder-continue with current supportive care. 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 Maintain current anticonvulsant therapy. His overall condition and prognosis is quiteguarded. We will obtain follow-up labs including CBC and BMP. He will eventually return back to hisgroup home. DICTATED BY: MD ASHWINI English/ELAINE JOB# [id number] [facility] documented [facility]12-05-2024 NoteHNO ID: [id number] Author: AIDA GOEL, ? Service: ? Author Type: Physician Type: Progress Notes Filed: 06/29/2024 16:24 Note Text: [facility] NOTE NAME: [facility] NO.: [id number] DATE OF SERVICE: 06/28/2024 ATTENDING PHYSICIAN: Aida Goel MD [facility] READMISSION HISTORY AND PHYSICAL: HISTORY OF PRESENT ILLNESS: The patient is a 53-year-old male who is admitted back to us from [facility] with a diagnosis of sepsis secondary to gastric perforation, status post exploratory laparotomy with James patch repair of gastric perforation and gastrostomy tube placement, acute hypoxic respiratory failure, electrolyte imbalance with hypernatremia, dysphagia with status post recent placement of gastrostomy feeding tube, cerebral palsy with spastic quadriparesis and seizure disorder, generalized contractures, and generalized weakness and debility. The patient had recently undergone outpatient placement of gastrostomy feeding tube due to dysphagia. However, he was admitted back to the hospital after accidental displacement of his gastrostomy feeding tube. Evaluation did reveal findings consistent with pneumoperitoneum consistent with gastric perforation. He did undergo exploratory laparotomy with James patch repair with a gastric perforation and reinsertion of the gastrostomy feeding tube. He did receive a course of IV antibiotic therapy and was also on hyperalimentation. He was also found to have acute hypoxic respiratory failure. He had been having difficulty with some secretions and was found to have atelectasis. This improved during the course of his hospitalization. Laboratory testing also revealed hyponatremia, for which he was given appropriate IV fluids. His condition was stabilized and improved and he is now admitted back to our facility for continued therapy prior to eventually returning back to his halfway. REVIEW OF SYSTEMS: Patient is currently lying in bed. He is awake, but nonverbal. He is unable to find any information or review of systems. Nursing states that he has had a quiet night and no issues since returning back from the hospital. He has been tolerating his tube feedings. No reports of any respiratory distress, obvious pain or discomfort, nausea, vomiting, or bleeding. SOCIAL/FUNCTIONAL HISTORY: He does not smoke or abuse alcohol. MEDICATIONS: Omeprazole 40 mg b.i.d., divalproex 500 mg at bedtime and 250 mg q.a.m., ibuprofen p.r.n., lactulose 15 mL b.i.d., loratadine 10 mg daily, mirtazapine 15 mg at bedtime, MiraLAX daily, Risperdal 2 mg daily. ALLERGIES: No known drug allergies. EXAMINATION: Afebrile, vital signs stable. He is in no distress. He does appear chronically ill. He is contracted. HEENT: Sclerae nonicteric. Ears intact. Lungs: Clear, though poor respiratory effort. Heart: Regular. Abdomen: Soft, nontender. Gastrostomy feeding tube present. He does have an abdominal binder. Extremities: No edema. 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 IMPRESSION: 1. Sepsis secondary to gastric perforation with pneumoperitoneum-he is status post exploratory laparotomy with James patch repair of the perforation with reinsertion of the gastrostomy tube after accidental dislodgement. He did receive course of antibiotic therapy while in the hospital. He currently is tolerating his tube feedings. He did receive a course of hyperalimentation while in the hospital. We will continue to monitor his GI symptoms. Maintain current Protonix b.i.d. 2. Acute hypoxic respiratory failure-resolved. Continue to monitor his respiratory status closely. 3. Electrolyte imbalance with hyponatremia-he is given appropriate IV fluids while in the hospital. We will obtain follow-up BMP, monitor his sodium and electrolytes and renal function closely. 4. Cerebral palsy with seizure disorder-continue with current supportive care. 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 Maintain current anticonvulsant therapy. His overall condition and prognosis is quite guarded. We will obtain follow-up labs including CBC and BMP. He will eventually return back to his halfway. DICTATED BY: MD ASHWINI English/ELAINE JOB# [id number] [facility]12-04-2024 Miscellaneous Notes* Quick Note - Lilian Maciel RN - 06/27/2024 2:21 PM EST Report called to Natalie BAÑUELOS at [place]. * Plan of Care - Hailee Phipps RN - 06/27/2024 1:38 AM EST Problem: Actual or potential alteration in health Goal: Absence of healthcare acquired conditions Outcome: Partially Met Goal: Knowledge of Interdisciplinary Plan of Care Outcome: Partially Met Goal: Knowledge of Enviroment Outcome: Partially Met Problem: Pain Goal: Reduced pain sensation Outcome: Partially Met Goal: Control of acute pain to acceptable level Outcome: Partially Met Goal: Able to cope with pain Outcome: Partially Met Goal: Able to achieve maximum level of physical functioning Outcome: Partially Met Goal: Able to achieve maximum level of psychosocial functioning Outcome: Partially Met * Sign Off Note - Argelia Cowan RD - 06/26/2024 11:14 AM EST Nutrition Support Team Daily Progress Note Pt receiving EN at goal rate w/ tolerance. Plan to discontinue TPN after current bag per discussionwith Trauma DO and Hospitalist. Nutrition support team will sign-off at this time. Please reconsultfor TPN dosing if again indicated. Prabha Cowan RD, LD, CNSC * Quick Note - Cindy Landry RD - 06/25/2024 2:00 PM EST Per notes, "okay to start TF and advance q4 hours" Tube Feeding: Isosource HN @ 55mL/hr. Start at a rate of 20mL/hr, advance by 10mL/hr q 4 hours until goal rate is reached. Flush with 100mL h2o q 4 hours. Will provide: 1,584 calories, 70 grams of protein and 1,066 mL of H2o. * Quick Note - Martha Spence CNP - 06/25/2024 11:35 AM EST Surgery Quick Note: UGI without contrast extravasation. Okay to start TF and advance q4 hours. * Plan of Care - Vivian Dillard RN - 06/24/2024 2:18 PM EST Problem: Actual or potential alteration in health Goal: Absence of healthcare acquired conditions Outcome: Partially Met Goal: Knowledge of Interdisciplinary Plan of Care Outcome: Partially Met Goal: Knowledge of Enviroment Outcome: Partially Met Problem: Pain Goal: Reduced pain sensation Outcome: Partially Met Goal: Control of acute pain to acceptable level Outcome: Partially Met Goal: Able to cope with pain Outcome: Partially Met Goal: Able to achieve maximum level of physical functioning Outcome: Partially Met Goal: Able to achieve maximum level of psychosocial functioning Outcome: Partially Met Problem: Pressure Injury, Risk of Goal: Absence of pressure injury Outcome: Partially Met Problem: Falls, Risk of Goal: Absence of falls Outcome: Partially Met Goal: Absence of physical injury Outcome: Partially Met * Quick Note - Christen Pace RN - 06/24/2024 6:02 AM EST Oral care provided. Repositioned. This RN changed both peg tube site drsg and KINA drain drsg after applying zinc oxide cream to sites. Patient is humming to country music via tv at this time. * Quick Note - Christen Pace RN - 06/24/2024 2:08 AM EST Repositioned for comfort * Plan of Care - Vivian Dillard RN - 06/23/2024 1:22 PM EST Problem: Actual or potential alteration in health Goal: Absence of healthcare acquired conditions Outcome: Partially Met Goal: Knowledge of Interdisciplinary Plan of Care Outcome: Partially Met Goal: Knowledge of Enviroment Outcome: Partially Met Problem: Pain Goal: Reduced pain sensation Outcome: Partially Met Goal: Control of acute pain to acceptable level Outcome: Partially Met Goal: Able to cope with pain Outcome: Partially Met Goal: Able to achieve maximum level of physical functioning Outcome: Partially Met Goal: Able to achieve maximum level of psychosocial functioning Outcome: Partially Met Problem: Pressure Injury, Risk of Goal: Absence of pressure injury Outcome: Partially Met Problem: Falls, Risk of Goal: Absence of falls Outcome: Partially Met Goal: Absence of physical injury Outcome: Partially Met * Christen Castro RN - 06/23/2024 4:08 AM EST Patient presents with laughing and giggling at this time. Frequent grinding of teeth. Reposition for comfort. * Christen Castro RN - 06/23/2024 2:33 AM EST Grinds teeth and snores when sinus rishi. Removes nasal cannula when applied. O2 sats 95 % on room air. * Christen Castro RN - 06/23/2024 1:54 AM EST Reposition for comfort. Continues to grimace with teeth grinding. Sinus rishi 40-50 on Telemetry. * Christen Castro RN - 06/23/2024 12:52 AM EST Repositioned for comfort with assist x2. Patient is grinding his teeth. Encouraged to not grind. Attempt to make comfortable., * Christen Castro RN - 06/22/2024 11:59 PM EST Repositioned for comfort. Patient resting with eyes closed for the first time this shift. Patient previously grinding teeth and restless behavior noted. Sinus rishi at this time. Continue to monitor for needs. * Plan of Care - Vivian Dillard RN - 06/22/2024 6:23 PM EST Problem: Actual or potential alteration in health Goal: Absence of healthcare acquired conditions Outcome: Partially Met Goal: Knowledge of Interdisciplinary Plan of Care Outcome: Partially Met Goal: Knowledge of Enviroment Outcome: Partially Met Problem: Pain Goal: Reduced pain sensation Outcome: Partially Met Goal: Control of acute pain to acceptable level Outcome: Partially Met Goal: Able to cope with pain Outcome: Partially Met Goal: Able to achieve maximum level of physical functioning Outcome: Partially Met Goal: Able to achieve maximum level of psychosocial functioning Outcome: Partially Met Problem: Pressure Injury, Risk of Goal: Absence of pressure injury Outcome: Partially Met Problem: Falls, Risk of Goal: Absence of falls Outcome: Partially Met Goal: Absence of physical injury Outcome: Partially Met * Quick Note - Vivian Dillard RN - 06/22/2024 1:02 PM EST Amira Rivera, legal guardian, called asking for updates on POC. This nurse provided updates. Amira requests that any employee from [facility] in [facility] be given updates about patient, specifically Deborah Culver RN. * Quick Note - Christen Pace RN - 06/22/2024 7:53 AM EST Patient smiling while contemporary samaritan music is playing., free flowing with moving arms in air while smiling. Reposition up in bed at this time.. * Quick Note - Christen Pace RN - 06/22/2024 7:50 AM EST Drain sponge applied to peg tube site. TPN restarted. No distress noted at this time. * Maeto Koo - Christen Pace RN - 06/22/2024 7:03 AM EST Tpn ON HOLD FOR LAB TO REDRAW AM LABS. * Mateo Koo - Christen Pace RN - 06/22/2024 4:00 AM EST Incontinent of urine,. Condom catheter changed,. Patient bathed, linen & gown changed, patient started biting his R hand two different times. Pulled hand away from mouth and talked to patient calmly with discouraging hand biting. Soft music on ty at this time. Lights dimmed. Continue to monitorfor needs. * Mateo Koo - Christen Pace RN - 06/21/2024 9:50 PM EST Repositioned for comfort. Rectal route tylenol administered for fever. [place] catheter in place. Scd's on at this time. TPN infusing at scheduled rate * Mateo Koo - Christen Pace RN - 06/21/2024 9:06 PM EST Informed Trauma WEB PRESS OPERATOR HELPER OFFSET that pt is running fever 100.2. informed that TPN has not been started. WEB PRESS OPERATOR HELPER OFFSET states to call [facility] for tylenol orders and call pharmacy about the tpn. This RN spoke with Mario Pharmacist and he checked orders, TPN comes from [place] and wont be mixed and available til tomorrow. * Mateo Koo - Christen Pace RN - 06/21/2024 8:55 PM EST Abdominal peg tube surgical site drsg remains intact with old shadowing drainage. Peg tube to drainbag with yellow drainage in tubing and brown drainage in drain bag. * Quick Note - Christen Pace RN - 06/21/2024 8:23 PM EST Patient makes eye contact. Reaching arms up and looking at the tele monitor. No distress noted at this time. Iv depakote completed at this time. * Initial Assessments - Rosamaria Walsh RD - 06/21/2024 8:42 AM EST Total Parenteral Nutrition (TPN) Assessment Service Line Ordering: Surgery IV access: PICC Drug/Food Allergies: Patient has no known allergies. Hospital Course: 53 yo male with hx of CP/bed bound/nonverbal, admitted with pulled PEG tube resulting in pneumoperitoneum. Pt with chronic hx of dysphagia, appears worsening of symptoms over past 4-5 months. Pt had been on pureed diet with documented poor po intake. PEG placed 06/18/24, unfortunately patient removed at nursing facility 06/19. Taken to the OR 06/20 s/p ex lap with James patch repair of perforation, drain and new G tube placement, currently to straight drain (60ml out). Pt to remain NPO. 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 reflecting normal weight Wt hx: reported wt loss in care everywhere, but reviewed weights and appears stable for >1 year 12/15-50kg 06/16-48.5kg Medications: protonix Laboratory: Recent Labs 06/20/24 1047 06/20/24 1623 06/21/24 0003 06/21/24 0344 06/21/24 0645 NA 140 142 144 144 -- K 3.9 3.9 4.3 4.2 4.2 -- BICARB 23 23 21 23 -- CL 105 110* 111* 111* -- GLUCOSE 90 122* 107* 105* -- BUN 15 14 11 11 -- CREATININE 0.52 0.54 0.52 0.52 -- MG 1.9 1.8 -- -- -- PHOS 3.4 2.5* -- -- 3.0 FSB-107 IVF: NS at 125ml/hr Indication for TPN: gastric perforation s/p james patch repair. No distal enteral access Estimated Energy Needs Total Energy Estimated Needs: 1285-1542kcal Method for Estimating Needs: 25-30kcal/kg Total Protein Estimated Needs: 62-77g Method for Estimating Needs: 1.2-1.5g/kg Fluid Needs Total Fluid Estimated Needs: 1300-1600ml Method for Estimating Needs: 1ml/kcal TPN recommendations: 50g AA, 100g Dextrose, 45g SMOF lipids at 40ml/hr. Adding 100mg thiamine, no insulin to start. Tentative goal rate on 06/22. Tentative Goal TPN: 75g AA, 220g Dextrose, 45g SMOF lipids at 60ml/hr providing 1498kcal and 75g protein. Rosamaria Walsh RD, LD, [facility] * Op Note - Niraj Garcia DO - 06/20/2024 12:30 PM EST Operative Note Patient Name: Rome Castillo : 1970 (53 y.o.) Date of Service: 06/20/2024 CSN: [id number] Procedure(s): EXPLORATORY LAPAROTOMY WITH JAMES PATCH REPAIR OF GASTRIC PERFORATION AND GASTROSTOMY TUBE PLACEMENT Pre-Operative Diagnoses: Dislodged PEG tube with pneumoperitoneum Post-Operative Diagnoses: Gastric perforation Surgeons and Role: * Niraj Garcia DO - Primary Anesthesiologist: Singh Quiñonez MD Anesthesiologist Audience Development Manager: Sarkis Omalley AA Pit Boss: Foster Price RN Scrub Person: Kodijosette Olga LidiaST Elder BOAT DISPATCHER: Niki Reyes RN Indication: 53-year-old male with past medical history of cerebral palsy, bed bound and non-verbal at baseline, was admitted to the hospital with a dislodged recently placed PEG tube, and pneumoperitoneum. The decision was made to take the patient for an exploratory laparotomy with possible gastrostomy tube placement. We discussed the risk and benefits of the procedure with the patient's guardianincluding but not limited to: Infection, bleeding, and damage to surrounding structures. All their questions were answered. Informed consent was obtained and placed in patient's chart. Procedure: After verifying informed consent in the preoperative area, the patient was brought to the operating room under care of anesthesia, and positioned supine on operating room table. SCDs were placed. Preoperative antibiotics were continued. After adequate intravenous sedation, general endotra cheal anesthesia was administered by the anesthesia team. A Ellsworth catheter was inserted. The abdomen was prepped with chlorhexidine, and draped in usual sterile fashion. A timeout was performed confirming correct patient, correct procedure, and preoperative administration of antibiotics. Using a #10 scalpel an upper midline incision was made, and carried down to the fascia with electrocautery. The fascia was opened with care being taken to avoid any injury to the underlying bowel. Noturbid fluid, or purulence was identified on entry into the abdomen. The stomach was identified, and pulled down into the incision. After careful inspection, we were able to identify a perforation on the posterior aspect of the stomach, with some adherent omentum, and surrounding fibrinous exudate.The transverse colon was carefully inspected, and no injury was noted. The perforation measured approximately 5 mm across. Interrupted 3-0 silk sutures were used to close the perforation, and the tails of the sutures were used to tie down a tongue of omentum over the perforation. The abdomen was then irrigated with 2 L of normal saline. A 10 Canadian drain was brought through the right upper quadrant, positioned posterior to the site of repair, and secured at the skin with a 3-0 nylon suture. We then turned our attention to placement of a new gastrostomy tube. Using a 3-0 silk the lateral aspect of the body of the stomach sutured to the anterior abdominal wall. An inner and outer 3-0 silk pursestring suture was then placed medial to the tacking suture on the anterior body of the stomach. A size 22 gastrostomy tube was passed through the abdominal wall to the left of our midline incision. The balloon was tested after the tube was passed, and noted to hold pressure appropriately. The stomach was opened with electrocautery in the middle of the pursestring sutures, and the gastrostomy tube was positioned inside the stomach. The balloon was inflated, and the pursestrings were tied aroundthe drain. The pursestring suture was then used to tack the stomach to the anterior abdominal wall.An additional two 3-0 silk sutures were used to tack the stomach medial to the site of the gastrosto my. The bumper was positioned snuggly against the skin, and we noted that the tube was at 3 cm. Theabdomen was then once again inspected, and hemostasis was confirmed. 50 cc of water with Betadine was flushed to the stomach, and no extravasation was noted in the abdominal cavity. On compression ofthe the stomach there was return of the Betadine water through the tube, confirming placement of the gastrostomy tube. The midline fascia was closed with 2 running #1 PDS sutures starting at both ends, and meeting in the middle.. Subcutaneous tissues were irrigated with normal saline. The skin was closed with nae, and covered with 4 x 4's and tape. All sponge, instrument, and needle counts were correct at the end of the procedure. The patient tolerated the procedure well without any obvious complications. The patient was aroused from anesthesia, extubated, and transferred to PACU in stable condition. I was present for all portions of procedure. Type of anesthesia used: General Estimated blood loss: 20 cc Estimated urine output: 200 mL Specimen(s): * No specimens in log * Implant(s): Implant Name Type Inv. Item Serial No. Spool Worker Lot No. LRB No. Used Action TUBE 22FR ENFIT GASTROSTOMY FEEDING PAO - SNA Tube - Implant TUBE 22FR ENFIT GASTROSTOMY FEEDING [facility] [id number] N/A 1 Implanted Drain(s): Closed/Suction Drain 1 Superior;Midline Abdomen 10 Fr. (Active) Gastrostomy/Enterostomy Gastrostomy 22 Fr. (Active) Urethral Catheter Coude 16 Fr. (Active) Site Assessment Clean 06/20/24 1237 Wound(s): Wound 06/20/24 1 Surgical Wound Abdomen Upper;Medial (Active) Wound Closure [place] 06/20/24 0006 Niraj Garcia DO 06/20/2024 2:06 PM * Significant Event - Mundo Card MD - 06/20/2024 12:16 PM EST HMS Rapid Response Note Reason for CONVEYOR BELT REPAIRER Call: Respiratory compromise/failure while in CT scan. Having difficulty with his secretions. Objective BP 119/68 Pulse (!) 103 Temp (!) 100.6 F (38.1 C) (Axillary) Resp 17 Ht 5' 2" Wt 59.2 kg (130 lb 8.2 oz) SpO2 95% BMI 23.87 kg/m Providers present: Leyda Ornelas CNP, Dr. Garcia, and Mundo Card MD Assessment: Acute respiratory failure Sepsis Coffee ground emesis Displaced PEG Treatment Plan: Surgery taking patient directly to OR from CT with plans for intubation in the OR by anesthesiology. Planning for ICU bed post-operatively. * Quick Note - Keira Cary RN - 06/20/2024 12:00 PM EST Pt in CT. Coughing and gagging on secretions. Unable to clear airway. Nasally suctioned pt for large amount of thick pink tinged secretions. Pulse ox 75%, placed on simple mask at 15L and called rapid response. Resp labored, pulse ox came up to 98%. Pt transferred to OR with rapid response and OR team. * Plan of Care - Samantha Mckinnon RN - 06/20/2024 11:57 AM EST Problem: Actual or potential alteration in health Goal: Absence of healthcare acquired conditions Outcome: Partially Met Goal: Knowledge of Interdisciplinary Plan of Care Outcome: Partially Met Goal: Knowledge of Enviroment Outcome: Partially Met Problem: Pain Goal: Reduced pain sensation Outcome: Partially Met Goal: Control of acute pain to acceptable level Outcome: Partially Met Goal: Able to cope with pain Outcome: Partially Met Goal: Able to achieve maximum level of physical functioning Outcome: Partially Met Goal: Able to achieve maximum level of psychosocial functioning Outcome: Partially Met Problem: Pressure Injury, Risk of Goal: Absence of pressure injury Outcome: Partially Met documented in this [id number] History of Present illness Narrative* Rosaura Blount - 06/27/2024 12:07 PM EST Medical Transportation set up by [facility] per hospital request: Date:06/27 Time:2pm Destination:[address] Company: [employer] ([phone]) Special needs/equipment:N/A Truck Type: Ambulance Companies called:Roundtrip * Iliana Marino - 06/27/2024 11:48 AM EST Transport request received and is being scheduled, trip information will follow as soon as the timeis secured. * Maeve Pennington LISW - 06/27/2024 11:33 AM EST Care Management Progress Note Date: 06/27/2024 Time: 11:33 AM Patient Name: Rome Castillo Date of : 1970 Discharge Plan: D/C Disposition: Jail Facility Final D/C Agency/Destination: [facility] PAS/RR: Return patient Reason for Choice: Currently with agency Plan A: Jail Facility Plan A : Post Acute Patient Choice 1: [facility] Discharging Transportation Plan: Transportation Type: Ambulance Discharge Plan Status: Patient may discharge back to [place]. Transport requested. Assessment and Background Information: * Joan Crowell - 06/27/2024 11:28 AM EST Creative/Art Director Basket Weaver contacted Admissions, Benita with [facility], to provide an update . Creative/Art Director Basket Weaver attempted to contact patient's guardian, Amira, to provide an update . Left message, awaiting return call. Addendum [id number] Creative/Art Director Basket Weaver received call from Admissions with [facility], regarding transport time . Creative/Art Director Basket Weaver attempted to contact patient's guardian, Amira, regarding transport time . Left message, awaiting return call. * Niraj Garcia DO - 06/27/2024 7:39 AM EST [facility] PATIENT: Rome Castillo DATE / TIME: 06/27/24 7:39 AM POS: Office AGE: 53 y.o. : 1970 RACE: [1] SEX: male PCP: Cruzito Doe MD REFERRAL: Donavan Givens MD TOS: POD #7 from exploratory laparotomy, with James patch repair of gastric perforation, and Amauri gastrostomy tube placement. SUBJECTIVE: No acute events overnight. KINA removed yesterday. TPN has been discontinued. Patient does not appear in any acute distress this morning. Tolerating tube feeds at 55 cc/hr OBJECTIVE: BP 100/68 (BP Location: Left arm, Patient Position: Lying) Pulse (!) 103 Temp 97.9 F (36.6 C) (Oral) Resp 15 Ht 5' 2" Wt 51.8 kg (114 lb 3.2 oz) SpO2 96% BMI 20.89 kg/m Physical exam: General: NAD, resting comfortably in bed Cardiac: Regular rate, and rhythm Pulmonary: Symmetrical chest expansion, nonlabored respirations. Abdomen: Soft, non-tender, nondistended. No guarding, or rigidity. No peritoneal signs. Incision clean, dry, intact with nae in place. G-tube in place with some skin breakdown present around the G-tube bumper site MSK: Moving all extremities spontaneously Neuro: CN II-XII grossly intact No leukocytosis. Hemoglobin stable at 12.7 ASSESSMENT: 53-year-old male with history of cerebral palsy, nonverbal at baseline, and bedbound, who presented to the hospital with dislodgment of his recently placed PEG tube. Now s/p exploratory laparotomy with James patch repair of gastric perforation, and Amauri gastrostomy tube placement on 06/20. UGI 06/25 with appropriate positioning of G-tube and no contrast extravasation. PLAN: Continue tube feeds Okay to stop antibiotics from general surgery standpoint Continue Protonix twice daily Continue Lovenox for DVT prophylaxis Daily CBC, and Chem-7 Apply zinc oxide to area of skin breakdown under G-tube bumper. Place gauze between bumper, and skin. Okay for discharge from general surgery standpoint. Follow up with me in the office in 2 weeks to remove nae. Niraj Garcia DO General Surgery 7:39 AM 06/27/24 * Maeve Pennington LISW - 06/26/2024 3:42 PM EST Care Management Progress Note Date: 06/26/2024 Time: 3:42 PM Patient Name: Rome Castillo Date of : 1970 Discharge Plan: Plan A: Jail Facility Plan A : Post Acute Patient Choice 1: [facility] Discharging Transportation Plan: Discharge Plan Status: Patient reviewed with physician. KINA pulled. TPN stopped today. Gtube feeding. Possible DC to [facility] 06/27. Assessment and Background Information: * Mary Padgett MD - 06/26/2024 10:35 AM EST [facility] PROGRESS NOTE Assessment and Plan Rome Castillo is a 53 y.o. male patient of Cruzito Doe MD with history of cerebral palsy, who presented to [facility] on 06/20/2024 with displaced PEG. Acute hypoxic respiratory failure, resolved Patient have respiratory compromise and CT yesterday when he was laid flat. Had difficulty with secretions. Chest x-ray noted with some atelectasis. Oxygen weaned off. Now on room air. Sepsis, POA Gastric perforation Coffee-ground emesis Presented with dislodged recently placed PEG tube. Found to have pneumoperitoneum. Status post ex lap with James patch repair of gastric perforation and gastrostomy tube placement. Continue Zosyn and Diflucan. Blood culture negative. On TPN. 06/25 patient underwent am UGI with gastrografin through the G-tube, which showed appropriate positioning of the G-tube with no contrast extravasation. Patient was started on tube feeds. Management per general surgery Acute hypernatremia Status post D5 water. Sodium improved. Cerebral palsy Contractures Restricted mobility Nursing to get records from facility/guardian Care management Not able to participate in therapy Resume home meds, risperidone , DC IV haldol Seizures Valproic acid. Insomnia Possible delirium Patient has not been sleeping per nursing staff. He is grinding his teeth quite a bit. Will add Seroquel low-dose nightly to see if that helps. Resolved acute medical issues Discharge Planning Medically Stable for Discharge Date: TBD Patient requires continued hospitalization due to: Pending upper GI follow-through. Discharge Location: assisted vs SNF Quality Measures DVT Prophylaxis: lovenox Ellsworth Catheter: present Code Status Full Primary Contact Information Subjective Remains nonverbal but rested and slept a little bit last night per nursing staff. Objective BP (!) 101/54 Pulse (!) 101 Temp 98.1 F (36.7 C) (Axillary) Resp 12 Ht 5' 2" Wt 53 kg (116 lb 13.5 oz) SpO2 95% BMI 21.37 kg/m Physical Examination General Appearance: somnolent; acute on chronically ill appearing; in mild acute distress HEENT: Head- normocephalic; Eyes- EOMI, sclera anicteric; Throat- mucous membranes moist Cardiovascular: regular rate and rhythm; normal S1, S2; no murmurs, rubs, clicks or gallops; peripheral edema absent Respiratory: lungs clear to auscultation; without wheezes, rales or rhonchi; on nasal cannula Abdomen: Ex lap with incision, PEG tube. Neurological: unable to assess orientation; nonverbal, contracted Musculoskeletal: no significant deformity or tenderness to palpation Skin: normal coloration Psych: Flat mood * Ayad Garcia-Dc, DO - 06/26/2024 7:25 AM EST [facility] PATIENT: Rome Castillo DATE / TIME: 06/26/24 7:25 AM POS: Office AGE: 53 y.o. : 1970 RACE: [1] SEX: male PCP: Cruzito Doe MD REFERRAL: Donavan Givens MD TOS: POD #6 from exploratory laparotomy, with James patch repair of gastric perforation, and Amauri gastrostomy tube placement. SUBJECTIVE: Yesterday patient underwent am UGI with gastrografin through the G- tube, which showed appropriate positioning of the G-tube with no contrast extravasation. Patient was started on tube feeds. No acute events overnight. Patient does not appear in any acute distress this morning. Tolerating tube feeds at 55 cc/hr OBJECTIVE: BP (!) 94/51 Pulse 84 Temp 97.6 F (36.4 C) (Oral) Resp 18 Ht 5' 2" Wt 53 kg (116 lb 13.5 oz) SpO2 95% BMI 21.37 kg/m KINA output: serous Physical exam: General: NAD, resting comfortably in bed Cardiac: Regular rate, and rhythm Pulmonary: Symmetrical chest expansion, nonlabored respirations. Abdomen: Soft, non-tender, nondistended. No guarding, or rigidity. No peritoneal signs. Incision clean, dry, intact with nae in place. KINA with serous output. G-tube in place with some skin breakdown present around the G-tube bumper site MSK: Moving all extremities spontaneously Neuro: CN II-XII grossly intact No leukocytosis. Hemoglobin stable at 12.7 ASSESSMENT: 53-year-old male with history of cerebral palsy, nonverbal at baseline, and bedbound, who presented to the hospital with dislodgment of his recently placed PEG tube. Now s/p exploratory laparotomy with James patch repair of gastric perforation, and Amauri gastrostomy tube placement on 06/20. UGI 06/25 with appropriate positioning of G-tube and no contrast extravasation. PLAN: Continue tube feeds Okay to stop TPN Will plan to remove KINA later today Okay to stop antibiotics from general surgery standpoint Continue Protonix twice daily Continue Lovenox for DVT prophylaxis Daily CBC, and Chem-7 Apply zinc oxide to area of skin breakdown under G-tube bumper. Place gauze between bumper, and skin. Okay for discharge from general surgery standpoint. Follow up with me in the office in 2 weeks to remove nae. Niraj Garcia DO General Surgery 7:25 AM 06/26/24 * Maeve Pennington LISW - 06/25/2024 3:47 PM EST Care Management Progress Note Date: 06/25/2024 Time: 3:49 PM Patient Name: Rome Castillo Date of : 1970 Discharge Plan: Plan A: Jail Facility Plan A : Post Acute Patient Choice 1: [facility] Discharging Transportation Plan: Discharge Plan Status: Chart reviewed. Upper GI today. Starting TF. CC lens coater updated [facility]. Assessment and Background Information: * Joan Crowell - 06/25/2024 12:33 PM EST Creative/Art Director Basket Weaver contacted Admissions with [facility], to provide an update . * Adalgisa Voss MD - 06/25/2024 10:55 AM EST [facility] PROGRESS NOTE Assessment and Plan Rome Castillo is a 53 y.o. male patient of Cruzito Doe MD with history of cerebral palsy, who presented to [facility] on 06/20/2024 with displaced PEG. Acute hypoxic respiratory failure, resolved Patient have respiratory compromise and CT yesterday when he was laid flat. Had difficulty with secretions. Chest x-ray noted with some atelectasis. Oxygen weaned off. Now on room air. Sepsis, POA Gastric perforation Coffee-ground emesis Presented with dislodged recently placed PEG tube. Found to have pneumoperitoneum. Status post ex lap with James patch repair of gastric perforation and gastrostomy tube placement. Continue Zosyn and Diflucan. Blood culture negative. On TPN. Upper GI today. If okay can start on trickle tube feeds. Management per general surgery CBC tomorrow. Acute hypernatremia Status post D5 water. Sodium improved. Cerebral palsy Contractures Restricted mobility Nursing to get records from facility/guardian Care management Not able to participate in therapy Haldol IV nightly until PEG can be used. Seizures Valproic acid Insomnia Possible delirium Patient has not been sleeping per nursing staff. He is grinding his teeth quite a bit. Will add Seroquel low-dose nightly to see if that helps. Resolved acute medical issues Discharge Planning Medically Stable for Discharge Date: TBD Patient requires continued hospitalization due to: Pending upper GI follow-through. Discharge Location: assisted vs SNF Quality Measures DVT Prophylaxis: lovenox Ellsworth Catheter: present Code Status Full Primary Contact Information Subjective Remains nonverbal but rested and slept a little bit last night per nursing staff. Will continue on low-dose Seroquel. Objective BP 121/76 Pulse 62 Temp 97.4 F (36.3 C) (Axillary) Resp 15 Ht 5' 2" Wt 53 kg (116 lb 13.5oz) SpO2 96% BMI 21.37 kg/m Physical Examination General Appearance: somnolent; acute on chronically ill appearing; in mild acute distress HEENT: Head- normocephalic; Eyes- EOMI, sclera anicteric; Throat- mucous membranes moist Cardiovascular: regular rate and rhythm; normal S1, S2; no murmurs, rubs, clicks or gallops; peripheral edema absent Respiratory: lungs clear to auscultation; without wheezes, rales or rhonchi; on nasal cannula Abdomen: Ex lap with incision, PEG tube. Neurological: unable to assess orientation; nonverbal, contracted Musculoskeletal: no significant deformity or tenderness to palpation Skin: normal coloration Psych: Flat mood * Sheila Wu RD - 06/25/2024 8:54 AM EST Nutrition Care Follow up Monitoring and Evaluation: Pt continues on TPN with NST managing Nutrition Diagnosis:Inadequate Energy Intake related to inability to consume sufficient energy as evidenced by NPO. Active Nutrition Intervention: Continue Parenteral Nutrition Diet:Continue NPO Nutrition Goals: TPN to meet estimated needs, managed by NST Start Date:06/25/2024 Expected End Date:06/29/2024 Nutrition Education: No needs at this time Assessment: Pertinent clinical information: Now s/p exploratory laparotomy with James patch repair of gastric perforation, and Amauri gastrostomy tube placement on 06/20 Height: 5' 2" Current weight: 53 kg (116 lb 13.5 oz) BMI Body mass index is 21.37 kg/m . Weight hx: need re-weight Wt Readings from Last 10 Encounters: 06/25/24 53 kg (116 lb 13.5 oz) 06/20/24 59 kg (130 lb) Current diet order: Diet: NPO Recent intake: NPO Barriers to adequate p.o. intakes: Gastrointestinal symptoms Patient/family comments: non-verbal Difficulty Chewing or Swallowing: Yes Skin Integrity: Surgical Incision(s) GI Function: LBM: 06/24/24 Fluid Status: WNL Physical Appearance: Unable to assess at this time Labs: Recent Labs 06/25/24 0208 NA 138 K 4.3 BICARB 24 CL 105 GLUCOSE 87 BUN 9 CREATININE 0.40* MG 2.0 PHOS 4.1 TRIG 94 PREALBUMIN 11.2* ALBUMIN 3.0* Recent Labs 06/22/24 2339 06/23/24 0749 06/24/24 0458 06/25/24 0208 GLUCOSE 121* 117* 79 87 Lab Results Component Value Date HGBA1C 5.4 06/20/2024 Scheduled Meds: enoxaparin (LOVENOX) injection 40 mg Subcutaneous Daily fluconazole (DIFLUCAN) IVPB 400 mg Intravenous Q24H haloperidol lactate 0.5 mg Intravenous Nightly insulin lispro 0-30 Units Subcutaneous Q4H [place] pantoprazole 40 mg Intravenous Q12H [place] piperacillin-tazobactam (ZOSYN) extended infusion 3.375 g Intravenous Q8H sodium chloride (PF) 10 mL Intracatheter Q8H [place] sodium chloride (PF) 5 mL Intravenous Q8H [place] valproate sodium 190 mg Intravenous Q6H Continuous Infusions: Adult TPN 60 mL/hr at 06/24/24 2316 dextrose Estimated Energy Needs Total Energy Estimated Needs: 1285-1542kcal Method for Estimating Needs: 25-30kcal/kg Total Protein Estimated Needs: 62-77g Method for Estimating Needs: 1.2-1.5g/kg Fluid Needs Total Fluid Estimated Needs: 1300-1600ml Method for Estimating Needs: 1ml/kcal Sheila Wu RD Office [phone] * Rosamaria Walsh RD - 06/25/2024 8:28 AM EST Nutrition Support Team Daily Progress Note Pertinent clinical issues: Remains NPO. 150ml/drain, BM x 2. UGI negative, surgery okay with resuming tube feeds and advancing to goal rate. Site RD notified. Current weight: 53 kg (116 lb 13.5 oz) Wt change since admit: +1.6kg (51.4kg) Current TPN prescription: Component Order Dose Admin Dose parenteral amino acid 15% no.6 15 % Solp 75 g/day 75 g dextrose 70% Solp 220 g/day 219.8 g fat emulsion (SMOFLIPID) 20 % Emul 45 g/day 225 mL sterile water Solp 343.95 mL/day 343.95 mL potassium acetate 2 mEq/mL Soln 30 mEq 30 mEq potassium phosphate 3 mmol/mL Soln 20 mmol 20 mmol calcium gluconate 100 mg/mL (10%) Soln 10 mEq 2.15 g magnesium sulfate 500 mg/mL (50 %) Soln 8 mEq 7.917 mEq mvi, adult no.4 with vit K 3,300 unit- 150 mcg/10 mL Soln 10 mL 10 mL trace elements Zn-Cu-Mn-Se 3 mg-0.3 mg-55 mcg-60 mcg/mL Soln 1 mL 1 mL thiamine 100 mg/mL Soln 100 mg 100 mg TPN at 60ml/hr provides 1497kcal and 75g protein. MIVF: none Pertinent labs: Recent Labs 06/23/24 0749 06/23/24 1843 06/24/24 0458 06/24/24 1301 06/25/24 0208 NA 142 -- 137 -- 138 K 3.8 3.7 3.9 3.9 4.3 BICARB 26 -- 23 -- 24 CL 108 -- 104 -- 105 GLUCOSE 117* -- 79 -- 87 BUN 20 -- 11 -- 9 CREATININE 0.37* -- 0.33* -- 0.40* MG 1.8 2.0 -- -- 2.0 PHOS 3.0 -- -- -- 4.1 MARTY -- -- 4.5 -- 4.9 TRIG -- -- -- -- 94 FSB-106, 0 units corrective insulin within the past 24h TPN Changes: -Decrease TPN to 50g AA, 150g Dextrose, no lipids at 50ml/hr to provide 709kcal, 50g protein. Follow progress with enteral nutrition. Rosamaria Walsh RD, LD, [facility] * Niraj Garcia DO - 06/25/2024 7:28 AM EST [facility] PATIENT: Rome Castillo DATE / TIME: 06/25/24 7:28 AM POS: Office AGE: 53 y.o. : 1970 RACE: [1] SEX: male PCP: Cruzito Doe MD REFERRAL: Donavan Givens MD TOS: POD #5 from exploratory laparotomy, with James patch repair of gastric perforation, and Amauri gastrostomy tube placement. SUBJECTIVE: No acute events overnight. Patient does not appear in any acute distress this morning OBJECTIVE: BP (!) 148/60 (BP Location: Left arm, Patient Position: Lying) Pulse 80 Temp 97.8 F (36.6 C) (Axillary) Resp 15 Ht 5' 2" Wt 53 kg (116 lb 13.5 oz) SpO2 96% BMI 21.37 kg/m Urine output: 3550 cc over 24 hours KINA output: 150 cc over the last 24 hours serous G-tube output: 0 cc over last 24 hours Physical exam: General: NAD, resting comfortably in bed Cardiac: Regular rate, and rhythm Pulmonary: Symmetrical chest expansion, nonlabored respirations. Abdomen: Soft, non-tender, nondistended. No guarding, or rigidity. No peritoneal signs. Incision clean, dry, intact with nae in place. KINA with serous output. G-tube to gravity with minimal gastric output. Some skin breakdown present around the G-tube bumper site, with mild erythema MSK: Moving all extremities spontaneously Neuro: CN II-XII grossly intact No leukocytosis. Hemoglobin stable at 11.9 ASSESSMENT: 53-year-old male with history of cerebral palsy, nonverbal at baseline, and bedbound, who presented to the hospital with dislodgment of his recently placed PEG tube. Now s/p exploratory laparotomy with James patch repair of gastric perforation, and Amauri gastrostomy tube placement on 06/20 PLAN: Will plan for upper GI with Gastrografin through G-tube today (06/25) If appropriate placement of G-tube, and no extravasation of contrast noted on upper GI, okay to start tube feeds at 10 cc an hour through G-tube, and advance 10 cc every 4 hours to goal Keep n.p.o. with IV fluid resuscitation Continue TPN Keep KINA, and monitor output Continue Zosyn, and Diflucan Continue Protonix twice daily Continue Lovenox for DVT prophylaxis Daily CBC, and Chem-7 Apply zinc oxide to area of skin breakdown under G-tube bumper. Place gauze between bumper, and skin. Niraj Garcia DO General Surgery 7:28 AM 06/25/24 * Adalgisa Voss MD - 06/24/2024 10:14 AM EST [facility] [place] PROGRESS NOTE Assessment and Plan Rome Castillo is a 53 y.o. male patient of Cruzito Doe MD with history of cerebral palsy, who presented to [facility] on 06/20/2024 with displaced PEG. Acute hypoxic respiratory failure, resolved Patient have respiratory compromise and CT yesterday when he was laid flat. Had difficulty with secretions. Chest x-ray noted with some atelectasis. Oxygen weaned off. Now on room air. Sepsis, POA Gastric perforation Coffee-ground emesis Presented with dislodged recently placed PEG tube. Found to have pneumoperitoneum. Status post ex lap with James patch repair of gastric perforation and gastrostomy tube placement. Continue Zosyn and Diflucan. Blood culture negative. On TPN. Management per general surgery. Plan for upper GI on Tuesday. CBC tomorrow. Acute hypernatremia Status post D5 water. Sodium improved. Cerebral palsy Contractures Restricted mobility Nursing to get records from facility/guardian Care management Not able to participate in therapy Haldol IV nightly until PEG can be used. Seizures Valproic acid Insomnia Possible delirium Patient has not been sleeping per nursing staff. He is grinding his teeth quite a bit. Will add Seroquel low-dose nightly to see if that helps. Resolved acute medical issues Discharge Planning Medically Stable for Discharge Date: TBD Patient requires continued hospitalization due to: Pending upper GI follow-through. Discharge Location: assisted vs SNF Quality Measures DVT Prophylaxis: lovenox Ellsworth Catheter: present Code Status Full Primary Contact Information Subjective Remains nonverbal at baseline. In no acute distress. Per nursing staff he has not slept much. Objective BP 102/71 Pulse 73 Temp 97.5 F (36.4 C) (Oral) Resp 18 Ht 5' 2" Wt 56.4 kg (124 lb 5.4 oz) SpO2 92% BMI 22.74 kg/m Physical Examination General Appearance: somnolent; acute on chronically ill appearing; in mild acute distress HEENT: Head- normocephalic; Eyes- EOMI, sclera anicteric; Throat- mucous membranes moist Cardiovascular: regular rate and rhythm; normal S1, S2; no murmurs, rubs, clicks or gallops; peripheral edema absent Respiratory: lungs clear to auscultation; without wheezes, rales or rhonchi; on nasal cannula Abdomen: Ex lap with incision, PEG tube. Neurological: unable to assess orientation; nonverbal, contracted Musculoskeletal: no significant deformity or tenderness to palpation Skin: normal coloration Psych: Flat mood * Niraj Garcia, DO - 06/24/2024 7:56 AM EST [facility] PATIENT: Rome Castillo DATE / TIME: 06/24/24 7:56 AM POS: Office AGE: 53 y.o. : 1970 RACE: [1] SEX: male PCP: Cruzito Doe MD REFERRAL: Donavan Givens MD TOS: POD #4 from exploratory laparotomy, with James patch repair of gastric perforation, and Amauri gastrostomy tube placement. SUBJECTIVE: No acute events overnight. Patient does not appear in any acute distress this morning OBJECTIVE: BP 102/71 Pulse 73 Temp 97.5 F (36.4 C) (Oral) Resp 18 Ht 5' 2" Wt 56.4 kg (124 lb 5.4 oz) SpO2 92% BMI 22.74 kg/m Urine output: 1550 cc over 24 hours KINA output: 70 cc over the last 24 hours G-tube output: 70 cc over last 24 hours Physical exam: General: NAD, resting comfortably in bed Cardiac: Regular rate, and rhythm Pulmonary: Symmetrical chest expansion, nonlabored respirations. Abdomen: Soft, appropriately tender, nondistended. No guarding, or rigidity. No peritoneal signs. Incision clean, dry, intact with nae in place. KINA with serosanguineous output. G-tube to gravity with gastric output. Some skin breakdown present around the G-tube bumper site, with mild erythema MSK: Moving all extremities spontaneously Neuro: CN II-XII grossly intact No leukocytosis. Hemoglobin stable at 10.8 ASSESSMENT: 53-year-old male with history of cerebral palsy, nonverbal at baseline, and bedbound, who presented to the hospital with dislodgment of his recently placed PEG tube. Now s/p exploratory laparotomy with James patch repair of gastric perforation, and Amauri gastrostomy tube placement on 06/20 PLAN: Keep n.p.o. with IV fluid resuscitation Continue TPN Keep G-tube to gravity Keep KINA, and monitor output Continue Zosyn, and Diflucan Continue Protonix twice daily Continue Lovenox for DVT prophylaxis Will plan for upper GI through G-tube 5 days from surgery (06/25) Daily CBC, and Chem-7 Apply zinc oxide to area of skin breakdown under G-tube bumper. Place gauze between bumper, and skin. Niraj Garcia DO General Surgery 7:56 AM 06/24/24 * Rosamaria Walsh, RD - 06/24/2024 7:20 AM EST Nutrition Support Team Daily Progress Note Pertinent clinical issues: Remains NPO. 70ml/Gtube, 70ml/drain, BM x 1 Current weight: 56.4 kg (124 lb 5.4 oz) Wt change since admit: +5kg (51.4kg) Current TPN prescription: Component Order Dose Admin Dose parenteral amino acid 15% no.6 15 % Solp 75 g/day 75 g dextrose 70% Solp 220 g/day 219.8 g fat emulsion (SMOFLIPID) 20 % Emul 45 g/day 225 mL sterile water Solp 343.95 mL/day 343.95 mL potassium acetate 2 mEq/mL Soln 30 mEq 30 mEq potassium phosphate 3 mmol/mL Soln 20 mmol 20 mmol calcium gluconate 100 mg/mL (10%) Soln 10 mEq 2.15 g magnesium sulfate 500 mg/mL (50 %) Soln 8 mEq 7.917 mEq mvi, adult no.4 with vit K 3,300 unit- 150 mcg/10 mL Soln 10 mL 10 mL trace elements Zn-Cu-Mn-Se 3 mg-0.3 mg-55 mcg-60 mcg/mL Soln 1 mL 1 mL thiamine 100 mg/mL Soln 100 mg 100 mg TPN at 60ml/hr provides 1497kcal and 75g protein. MIVF: none Pertinent labs: Recent Labs 06/22/24 0506 06/22/24 0731 06/22/24 2339 06/23/24 0749 06/23/24 1843 06/24/24 0458 NA -- < > 144 142 -- 137 K -- < > 3.5 3.8 3.7 3.9 BICARB -- < > 27 26 -- 23 CL -- < > 109* 108 -- 104 GLUCOSE -- < > 121* 117* -- 79 BUN -- < > 21 20 -- 11 CREATININE -- < > 0.40* 0.37* -- 0.33* MG 2.0 -- -- 1.8 2.0 -- PHOS 2.4* -- -- 3.0 -- -- MARTY 4.4* -- -- -- -- 4.5 < > = values in this interval not displayed. FSB-110, 0 units corrective insulin within the past 24h TPN Changes: -No changes to current TPN rx Rosamaria Walsh RD, LD, [facility] * Adalgisa Voss MD - 06/23/2024 11:53 AM EST [facility] [place] PROGRESS NOTE Assessment and Plan Rome Castillo is a 53 y.o. male patient of Cruzito Doe MD with history of cerebral palsy, who presented to [facility] on 06/20/2024 with displaced PEG. Acute hypoxic respiratory failure Patient have respiratory compromise and CT yesterday when he was laid flat. Had difficulty with secretions. Chest x-ray noted with some atelectasis. Wean oxygen as able. Sepsis, POA Gastric perforation Coffee-ground emesis Presented with dislodged recently placed PEG tube. Found to have pneumoperitoneum. Status post ex lap with James patch repair of gastric perforation and gastrostomy tube placement. Continue Zosyn and Diflucan. Blood culture negative. On TPN. Management per general surgery. Plan for upper GI on Tuesday. Acute hypernatremia Status post D5 water. Sodium improved. BMP tomorrow. Cerebral palsy Contractures Restricted mobility Nursing to get records from facility/guardian Care management Not able to participate in therapy Haldol IV nightly until PEG can be used. Seizures Valproic acid Resolved acute medical issues Discharge Planning Medically Stable for Discharge Date: TBD Patient requires continued hospitalization due to: Pending upper GI follow-through. Discharge Location: assisted vs SNF Quality Measures DVT Prophylaxis: lovenox Ellsworth Catheter: present Code Status Full Primary Contact Information Subjective Patient remains nonverbal at baseline. Not in any acute distress. Objective BP 119/77 Pulse (!) 7 Temp 97.1 F (36.2 C) (Axillary) Resp 16 Ht 5' 2" Wt 57.8 kg (127 lb6.8 oz) SpO2 96% BMI 23.31 kg/m Physical Examination General Appearance: somnolent; acute on chronically ill appearing; in mild acute distress HEENT: Head- normocephalic; Eyes- EOMI, sclera anicteric; Throat- mucous membranes moist Cardiovascular: regular rate and rhythm; normal S1, S2; no murmurs, rubs, clicks or gallops; peripheral edema absent Respiratory: lungs clear to auscultation; without wheezes, rales or rhonchi; on nasal cannula Abdomen: Ex lap with incision, PEG tube. Neurological: unable to assess orientation; nonverbal, contracted Musculoskeletal: no significant deformity or tenderness to palpation Skin: normal coloration Psych: Flat mood * Niraj Garcia, DO - 06/23/2024 8:36 AM EST [facility] PATIENT: Rome Castillo DATE / TIME: 06/23/24 8:36 AM POS: Office AGE: 53 y.o. : 1970 RACE: [1] SEX: male PCP: Cruzito Doe MD REFERRAL: Donavan Givens MD TOS: POD #3 from exploratory laparotomy, with James patch repair of gastric perforation, and Amauri gastrostomy tube placement. SUBJECTIVE: No acute events overnight. Patient does not appear in any acute distress this morning OBJECTIVE: BP 119/77 Pulse (!) 57 Temp 97.1 F (36.2 C) (Axillary) Resp 16 Ht 5' 2" Wt 57.8 kg (127 lb 6.8 oz) SpO2 96% BMI 23.31 kg/m Urine output: 575 cc over 24 hours. Multiple incontinent episodes KINA output: 35 cc over the last 24 hours G-tube output: 190 cc over last 24 hours Physical exam: General: NAD, resting comfortably in bed Cardiac: Regular rate, and rhythm Pulmonary: Symmetrical chest expansion, nonlabored respirations. Abdomen: Soft, appropriately tender, nondistended. No guarding, or rigidity. No peritoneal signs. Incision clean, dry, intact with nae in place. KINA with serosanguineous output. G-tube to gravity with gastric output. Some skin breakdown present around the G-tube bumper site, with mild erythema MSK: Moving all extremities spontaneously Neuro: CN II-XII grossly intact No leukocytosis. Hemoglobin stable at 10.1 ASSESSMENT: 53-year-old male with history of cerebral palsy, nonverbal at baseline, and bedbound, who presented to the hospital with dislodgment of his recently placed PEG tube. Now s/p exploratory laparotomy with James patch repair of gastric perforation, and Amauri gastrostomy tube placement on 06/20 PLAN: Keep n.p.o. with IV fluid resuscitation Continue TPN Keep G-tube to gravity Keep KINA, and monitor output Continue Zosyn, and Diflucan Continue Protonix twice daily Continue Lovenox for DVT prophylaxis Will plan for upper GI through G-tube 5 days from surgery (06/25) Daily CBC, and Chem-7 Apply zinc oxide to area of skin breakdown under G-tube bumper. Place gauze between bumper, and skin. Niraj Garcia DO General Surgery 8:36 AM 06/23/24 * Rosamaria Walsh, KAILEE - 06/23/2024 7:56 AM EST Nutrition Support Team Daily Progress Note Pertinent clinical issues: NPO. 35ml/drain, 190/G tube. UGI planned for the coming days. Current weight: 57.8 kg (127 lb 6.8 oz) Wt change since admit: +6.4kg (51.4kg) Current TPN prescription: Component Order Dose Admin Dose parenteral amino acid 15% no.6 15 % Solp 65 g/day 64.95 g dextrose 70% Solp 100 g/day 100.1 g fat emulsion (SMOFLIPID) 20 % Emul 45 g/day 225 mL sterile water Solp 101.95 mL/day 101.95 mL potassium acetate 2 mEq/mL Soln 30 mEq 30 mEq potassium phosphate 3 mmol/mL Soln 20 mmol 20 mmol calcium gluconate 100 mg/mL (10%) Soln 10 mEq 2.15 g magnesium sulfate 500 mg/mL (50 %) Soln 8 mEq 7.917 mEq mvi, adult no.4 with vit K 3,300 unit- 150 mcg/10 mL Soln 10 mL 10 mL trace elements Zn-Cu-Mn-Se 3 mg-0.3 mg-55 mcg-60 mcg/mL Soln 1 mL 1 mL thiamine 100 mg/mL Soln 100 mg 100 mg TPN at 40ml/hr provides 1050kcal and 65g protein. MIVF: D5W at 75ml/hr (provides 90g dextrose) Pertinent labs: Recent Labs 06/20/24 1047 06/20/24 1623 06/21/24 0003 06/21/24 0645 06/22/24 0506 06/22/24 0731 06/22/24 2339 06/23/24 0749 NA 140 142 < > -- -- 147* 144 142 K 3.9 3.9 < > -- -- 3.9 3.5 3.8 BICARB 23 23 < > -- -- 24 27 26 CL 105 110* < > -- -- 112* 109* 108 GLUCOSE 90 122* < > -- -- 107* 121* 117* BUN 15 14 < > -- -- 21 21 20 CREATININE 0.52 0.54 < > -- -- 0.40* 0.40* 0.37* MG 1.9 1.8 -- -- 2.0 -- -- -- PHOS 3.4 2.5* -- 3.0 2.4* -- -- -- MARTY -- -- -- -- 4.4* -- -- -- TRIG -- -- -- 65 -- -- -- -- < > = values in this interval not displayed. FSB-129, 0 units corrective insulin within the past 24h TPN Changes: -Increase to goal: 75g AA, 220g Dextrose, 45g SMOF lipids at 60ml/hr providing 1498kcal and 75g protein -D5W to be discontinued Rosamaria Walsh RD, LD, [facility] * Maeve Pennington LISW - 06/22/2024 2:11 PM EST Care Management Progress Note Date: 06/22/2024 Time: 2:11 PM Patient Name: Rome Castillo Date of : 1970 Discharge Plan: Plan A: Jail Facility Plan A : Post Acute Patient Choice 1: [facility] Discharging Transportation Plan: Discharge Plan Status: Chart reviewed. Patient not medically ready for discharge. Plan to return [facility] at discharge. Assessment and Background Information: * Maeve Perez - 06/22/2024 12:06 PM EST Spiritual Care Progress Note Completed by: Trev Zacarias Person(s) Present During this Visit: Patient Time Spent in Direct Patient Care: 5 Narrative: Records Tech on rounding visited patient. Patient appeared to be non verbal, no family members at bedside. Records Tech offered care of presence and silent prayers. Trev Zacarias Staff Records Tech [facility] [place] [employer]op dredger Records Tech 06/22/24 0983 Visit Background Visit With Patient Visit By Staff Records Tech Visit Progression Introduction Visit Requested By Records Tech Initiated Visit Source Records Tech Initiated Visit Type Inpatient;Rounding Visit Circumstances and Events Routine Visit Visit Length (minutes) 5 Patient's Response to Pastoral Care Appeared to be not engaged Visit Planning PRN Spiritual Assessment Not assessed during visit [facility] Assessment Not assessed during this visit Family assessment provided? Not assessed during this visit * Adalgisa Voss MD - 06/22/2024 10:27 AM EST [facility] PROGRESS NOTE Assessment and Plan Rome Castillo is a 53 y.o. male patient of Cruzito Doe MD with history of cerebral palsy, who presented to [facility] on 06/20/2024 with displaced PEG. Acute hypoxic respiratory failure Patient have respiratory compromise and CT yesterday when he was laid flat. Had difficulty with secretions. Chest x-ray noted with some atelectasis. Wean oxygen as able. Sepsis, POA Gastric perforation Coffee-ground emesis Presented with dislodged recently placed PEG tube. Found to have pneumoperitoneum. Status post ex lap with James patch repair of gastric perforation and gastrostomy tube placement. Continue Zosyn and Diflucan. Blood culture negative. On TPN. Management per general surgery. Acute hyponatremia Sodium 147 today. Started D5 water 100 cc an hour for 1 day. BMP tomorrow. Cerebral palsy Contractures Restricted mobility Nursing to get records from facility/guardian Care management Not able to participate in therapy Haldol IV nightly until PEG can be used. Seizures Valproic acid Resolved acute medical issues Discharge Planning Medically Stable for Discharge Date: TBD Patient requires continued hospitalization due to: pending GS clearance Discharge Location: assisted vs SNF Quality Measures DVT Prophylaxis: lovenox Ellsworth Catheter: present Code Status Full Primary Contact Information Subjective Patient more awake and alert, grinding his teeth this morning extremities contracted. Moving spontaneously Objective BP 114/73 Pulse (!) 48 Temp 97.8 F (36.6 C) (Axillary) Resp (!) 11 Ht 5' 2" Wt 56 kg (123lb 7.3 oz) SpO2 95% BMI 22.58 kg/m Physical Examination General Appearance: somnolent; acute on chronically ill appearing; in mild acute distress HEENT: Head- normocephalic; Eyes- EOMI, sclera anicteric; Throat- mucous membranes moist Cardiovascular: regular rate and rhythm; normal S1, S2; no murmurs, rubs, clicks or gallops; peripheral edema absent Respiratory: lungs clear to auscultation; without wheezes, rales or rhonchi; on nasal cannula Abdomen: Ex lap with incision, PEG tube. Neurological: unable to assess orientation; nonverbal, contracted Musculoskeletal: no significant deformity or tenderness to palpation Skin: normal coloration Psych: Flat mood * Citlalli Jones CNP - 06/22/2024 10:04 AM EST [facility] DAILY PROGRESS NOTE SURGICAL PROBLEM Gastric Perforation ASSESSMENT & PLAN/ACTIVE MEDICAL PROBLEMS: Gastric Perforation S/p exploratory laparotomy, with James patch repair of gastric perforation, and Amauri gastrostomy tube placement WBC 9, TMAX 100.4 overnight, HDS KINA with 90 ml / 24 hours Maintain NPO with IVF; Continue TPN Maintain G tube to gravity, continue KINA. Continue zosyn, diflucan PPI BID, Lovenox Plan for upper GI study 06/25 SURGERIES/PROCEDURES: Date Operation/Procedure Provider Name 06/20/2024 Exploratory laparotomy, with James patch repair of gastric perforation, and Amauri gastrostomy tube placement Dr. Garcia INCIDENTAL FINDINGS: N/A. RESOLVED PROBLEMS: DISPOSITION PLAN - per primary Antibiotics: tbd With Drain: no Dressing changes NA. Follow up within: TBD CHIEF COMPLAINT/ HPI / PFSHx / EVENTS OVER LAST 24HRS: Resting in bed, no acute overnight events, Continue TPN, maintain NPO. REVIEW OF SYSTEMS: Other than the above items the remainder of the complete ROS is otherwise unchanged from admission. PHYSICAL EXAM: Temp: [97.5 F (36.4 C)-100.4 F (38 C)] 97.8 F (36.6 C) Heart Rate: [48-95] 48 Resp: [11-30] 11 BP: (103-160)/(45-112) 114/73 GENERAL: Appears age appropriate. No acute distress. NEUROLOGICAL: Alert. Pupils equal, round, reactive to light. Head: Atraumatic, normocephalic. CARDIOVASCULAR: Regular rate and rhythm. No peripheral edema noted. RESPIRATORY: Respiratory effort unlabored without use of accessory muscles. ABDOMINAL: Rounded, soft, nontender, non distended. G tube to gravity. Abdominal KINA with minimal serosanguinous output. Midabdominal dressing CDI. No guarding or peritoneal signs. GENITOURINARY: Normal genitalia for age without lesion or trauma. MUSCULOSKELETAL: Extremities atraumatic without gross deformity x4. SKIN: Skin warm and dry. Intake/Output Summary (Last 24 hours) at 06/22/2024 1004 Last data filed at 06/22/2024 0900 Gross per 24 hour Intake 873.85 ml Output 820 ml Net 53.85 ml IMAGING [briefly note any results pertinent to today's evaluation]: No new imaging LABS Lab Results Component Value Date WBC 9.11 06/22/2024 HGB 11.0 (L) 06/22/2024 HCT 30.6 (L) 06/22/2024 MCV 94.7 06/22/2024 EXTMCV 92.0 04/14/2018 PLT 141 (L) 06/22/2024 RBC 3.23 (L) 06/22/2024 Lab Results Component Value Date GLUCOSE 107 (H) 06/22/2024 CALCIUM 8.5 06/22/2024 NA 147 (H) 06/22/2024 K 3.9 06/22/2024 CL 112 (H) 06/22/2024 BUN 21 06/22/2024 CREATININE 0.40 (L) 06/22/2024 Lab Results Component Value Date ALT 25 06/22/2024 AST 61 (H) 06/22/2024 ALKPHOS 53 06/22/2024 BILITOT 0.6 06/22/2024 Cosigned by Niraj Garcia DO at 06/22/2024 12:14 PM EST Associated attestation - Niraj Garcia DO - 06/22/2024 12:14 PM EST [facility] PATIENT: Rome Castillo DATE / TIME: 06/22/24 12:06 PM POS: Office AGE: 53 y.o. : 1970 RACE: [1] SEX: male PCP: Cruzito Doe MD REFERRAL: Doanvan Givens MD TOS: POD #2 from exploratory laparotomy, with James patch repair of gastric perforation, and Amauri gastrostomy tube placement. SUBJECTIVE: Febrile overnight to 100.4. Downgraded from ICU. Ellsworth catheter removed. Incontinent ofurine. Patient does not appear in any acute distress this morning OBJECTIVE: BP 101/64 (BP Location: Left arm, Patient Position: Lying) Pulse 74 Temp 98.6 F (37 C) (Axillary) Resp 16 Ht 5' 2" Wt 56 kg (123 lb 7.3 oz) SpO2 93% BMI 22.58 kg/m Urine output: 550 cc / 24 hrs KINA output: 90 cc /24 hrs serosang G-tube output: 30 cc / 24 hrs Physical exam: General: NAD, resting comfortably in bed Cardiac: Regular rate, and rhythm Pulmonary: Symmetrical chest expansion, nonlabored respirations. Abdomen: Soft, appropriately tender, nondistended. No guarding, or rigidity. No peritoneal signs. Incision clean, dry, intact with overlying dressing. KINA with serosanguineous output. G-tube to gravity with gastric output. MSK: Moving all extremities spontaneously Neuro: CN II-XII grossly intact No leukocytosis. Hemoglobin stable at 11.0 ASSESSMENT: 53-year-old male with history of cerebral palsy, nonverbal at baseline, and bedbound, who presented to the hospital with dislodgment of his recently placed PEG tube. Now s/p exploratory laparotomy with James patch repair of gastric perforation, and Amauri gastrostomy tube placement on 06/20 PLAN: Keep n.p.o. with IV fluid resuscitation Continue TPN Keep G-tube to gravity Keep KINA, and monitor output Continue Zosyn, and Diflucan Continue Protonix twice daily Continue Lovenox for DVT prophylaxis Will plan for upper GI through G-tube 5 days from surgery (06/25) Daily CBC, and Chem-7 Niraj Garcia DO General Surgery 12:06 PM 06/22/24 * Rosamaria Walsh, RD - 06/22/2024 8:39 AM EST Nutrition Support Team Daily Progress Note Pertinent clinical issues: TPN initiated overnight. NPO, 30ml/PEG and 90ml/drain. Current weight: 56 kg (123 lb 7.3 oz) Wt change since admit: +4.6kg (51.4kg) Current TPN prescription: Component Order Dose Admin Dose parenteral amino acid 15% no.6 15 % Solp 50 g/day 49.95 g dextrose 70% Solp 100 g/day 100.1 g fat emulsion (SMOFLIPID) 20 % Emul 45 g/day 225 mL sterile water Solp 187.55 mL/day 187.55 mL sodium acetate 2 mEq/mL Soln 40 mEq 40 mEq potassium acetate 2 mEq/mL Soln 30 mEq 30 mEq potassium phosphate 3 mmol/mL Soln 15 mmol 15 mmol calcium gluconate 100 mg/mL (10%) Soln 8 mEq 1.7 g magnesium sulfate 500 mg/mL (50 %) Soln 10 mEq 10 mEq mvi, adult no.4 with vit K 3,300 unit- 150 mcg/10 mL Soln 10 mL 10 mL trace elements Zn-Cu-Mn-Se 3 mg-0.3 mg-55 mcg-60 mcg/mL Soln 1 mL 1 mL thiamine 100 mg/mL Soln 100 mg 100 mg TPN at 40ml/hr provides 990kcal and 50g protein. MIVF: D5W at 75ml/hr added this morning for hypernatremia, provides 90g dextrose Pertinent labs: Recent Labs 06/20/24 1047 06/20/24 1623 06/21/24 0003 06/21/24 0344 06/21/24 0645 06/22/24 0506 06/22/24 0731 NA 140 142 144 144 -- -- 147* K 3.9 3.9 4.3 4.2 4.2 -- -- 3.9 BICARB 23 23 21 23 -- -- 24 CL 105 110* 111* 111* -- -- 112* GLUCOSE 90 122* 107* 105* -- -- 107* BUN 15 14 11 11 -- -- 21 CREATININE 0.52 0.54 0.52 0.52 -- -- 0.40* MG 1.9 1.8 -- -- -- 2.0 -- PHOS 3.4 2.5* -- -- 3.0 2.4* -- MARTY -- -- -- -- -- 4.4* -- TRIG -- -- -- -- 65 -- -- FSB-109, 0 units corrective insulin within the past 24h TPN Changes: -Change TPN to 65gAA, 100g Dextrose, 45g SMOF lipids at 40ml/hr to provide 1050kcal, 65g protein. Further increases in dextrose pending metabolic stabilization -Remove NaAc -Increase KPhos to 20 mmol -Increase CaGluc to 10 mEq -Decrease Mg SO4 to [address], LD, [facility] * Niraj Garcia DO - 06/21/2024 10:40 AM EST [facility] PATIENT: Rome Castillo DATE / TIME: 06/21/24 10:40 AM POS: Office AGE: 53 y.o. : 1970 RACE: [1] SEX: male PCP: Cruzito Doe MD REFERRAL: Donavan Givens MD TOS: POD #1 from exploratory laparotomy, with James patch repair of gastric perforation, and Amauri gastrostomy tube placement. SUBJECTIVE: No acute events overnight. Patient does not appear in any acute distress this morning OBJECTIVE: BP (!) 146/131 (BP Location: Left arm, Patient Position: Lying) Pulse 89 Temp 98 F (36.7 C) (Axillary) Resp 12 Ht 5' 2" Wt 51.6 kg (113 lb 12.1 oz) SpO2 95% BMI 20.81 kg/m Urine output: 1025 cc since surgery KINA output: 40 cc since surgery G-tube output: 60 cc since surgery Physical exam: General: NAD, resting comfortably in bed Cardiac: Regular rate, and rhythm Pulmonary: Symmetrical chest expansion, nonlabored respirations. Abdomen: Soft, appropriately tender, nondistended. No guarding, or rigidity. No peritoneal signs. Incision clean, dry, intact with overlying dressing. KINA with serosanguineous output. G-tube to gravity with gastric output. MSK: Moving all extremities spontaneously Neuro: CN II-XII grossly intact No leukocytosis. Hemoglobin stable at 11.8 ASSESSMENT: 53-year-old male with history of cerebral palsy, nonverbal at baseline, and bedbound, who presented to the hospital with dislodgment of his recently placed PEG tube. Now s/p exploratory laparotomy with James patch repair of gastric perforation, and Amauri gastrostomy tube placement on 06/20 PLAN: Keep n.p.o. with IV fluid resuscitation PICC line placed yesterday. Will plan to start TPN Keep G-tube to gravity Keep KINA, and monitor output Continue Zosyn, and Diflucan Continue Protonix twice daily Start Lovenox for DVT prophylaxis Okay for downgrade from ICU from general surgery standpoint Will plan for upper GI through G-tube 5 days from surgery (06/25) Daily CBC, and Chem-7 Niraj Garcia DO General Surgery 10:47 AM 06/21/24 * Adalgisa Voss MD - 06/21/2024 10:14 AM EST [facility] PROGRESS NOTE Assessment and Plan Rome Castillo is a 53 y.o. male patient of Cruzito Doe MD with history of cerebral palsy, who presented to [facility] on 06/20/2024 with displaced PEG. Acute hypoxic respiratory failure Patient have respiratory compromise and CT yesterday when he was laid flat. Had difficulty with secretions. Chest x-ray noted with some atelectasis. Wean oxygen as able. Sepsis, POA Gastric perforation Coffee-ground emesis Presented with dislodged recently placed PEG tube. Found to have pneumoperitoneum. Status post ex lap with James patch repair of gastric perforation and gastrostomy tube placement. Continue Zosyn and Diflucan. On TPN. Management per general surgery. Cerebral palsy Contractures Restricted mobility Nursing to get records from facility/guardian Care management Not able to participate in therapy Haldol IV nightly until PEG can be used. Seizures Valproic acid Resolved acute medical issues Discharge Planning Medically Stable for Discharge Date: TBD Patient requires continued hospitalization due to: pending GS clearance Discharge Location: assisted vs SNF Quality Measures DVT Prophylaxis: lovenox [place] Catheter: present Code Status Full Primary Contact Information Subjective Patient with cerebral palsy slightly contracted in the bed, remains nonverbal. Objective BP (!) 146/131 (BP Location: Left arm, Patient Position: Lying) Pulse 89 Temp 98 F (36.7 C) (Axillary) Resp 12 Ht 5' 2" Wt 51.6 kg (113 lb 12.1 oz) SpO2 95% BMI 20.81 kg/m Physical Examination General Appearance: somnolent; acute on chronically ill appearing; in mild acute distress HEENT: Head- normocephalic; Eyes- EOMI, sclera anicteric; Throat- mucous membranes moist Cardiovascular: regular rate and rhythm; normal S1, S2; no murmurs, rubs, clicks or gallops; peripheral edema absent Respiratory: lungs clear to auscultation; without wheezes, rales or rhonchi; on nasal cannula Abdomen: Ex lap with incision, PEG tube. Neurological: unable to assess orientation; nonverbal, contracted Musculoskeletal: no significant deformity or tenderness to palpation Skin: normal coloration Psych: Flat mood * Sheila Wu RD - 06/21/2024 8:24 AM EST Nutrition Care Initial Assessment Reason for visit: Nursing Referral: unintentional weight loss of more than 7 lbs in the last month , patient has used supplemental drinks (Ensure/Boost type drinks) over the past month, and the patient has experienced a decreased appetite over the last month Nutrition Diagnosis: Inadequate Energy Intake related to inability to consume sufficient energy as evidenced by NPO. Nutrition Intervention Initiate Parenteral Nutrition Nutrition Prescription: Diet:Continue NPO Nutrition Goals: TPN to meet estimated needs, managed by NST Start Date:06/21/2024 Expected End Date:06/25/2024 Nutrition Education: No needs at this time Assessment: Pertinent clinical information: admit with past medical history of cerebral palsy, bed bound and non-verbal at baseline, was admitted to the hospital with a dislodged recently placed PEG tube, and pneumoperitoneum. The decision was made to take the patient for an exploratory laparotomy with possible gastrostomy tube placement. Gastric perforation, james patch repair. 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 Weight hx: Wt Readings from Last 10 Encounters: 06/21/24 51.6 kg (113 lb 12.1 oz) 06/20/24 59 kg (130 lb) Current diet order: Diet: NPO Recent intake: EN Barriers to adequate p.o. intakes: Gastrointestinal symptoms , Dysphagia, and Confusion/AMS Nutrition Related Allergies/Intolerances: No Nutrition Related Allergies noted Cultural or Samaritan Dietary Needs :No Cultural or Samaritan Dietary needs noted Patient/family comments:Deferred: Pt sleeping Difficulty Chewing or Swallowing: Yes- Pt with feeding tube on admission Skin Integrity: Surgical Incision(s) GI Function: Vomiting Fluid Status: WNL Physical Appearance: Deferred: Pt sleeping Labs: Recent Labs 06/20/24 1047 06/20/24 1623 06/21/24 0003 06/21/24 0344 06/21/24 0645 NA 140 142 < > 144 -- K 3.9 3.9 < > 4.2 -- BICARB 23 23 < > 23 -- CL 105 110* < > 111* -- GLUCOSE 90 122* < > 105* -- BUN 15 14 < > 11 -- CREATININE 0.52 0.54 < > 0.52 -- MG 1.9 1.8 -- -- -- PHOS 3.4 2.5* -- -- 3.0 ALBUMIN 3.5 3.2 -- -- -- CRP 198.0* -- -- -- -- < > = values in this interval not displayed. Recent Labs 06/20/24 1047 06/20/24 1623 06/21/24 0003 06/21/24 0344 GLUCOSE 90 122* 107* 105* Lab Results Component Value Date HGBA1C 5.4 06/20/2024 Home Medications Reviewed: Yes Scheduled Meds: fluconazole (DIFLUCAN) IVPB 400 mg Intravenous Q24H haloperidol lactate 0.5 mg Intravenous Nightly pantoprazole 40 mg Intravenous Q12H ELMER piperacillin-tazobactam (ZOSYN) extended infusion 3.375 g Intravenous Q8H sodium chloride (PF) 10 mL Intracatheter Q8H ELMER sodium chloride (PF) 5 mL Intravenous Q8H ELMER valproate sodium 190 mg Intravenous Q6H Continuous Infusions: sodium chloride 0.9 % 125 mL/hr (06/21/24 0649) Nutrient Depleting Medications: Anticonvulsant (Chronic Use) Estimated Energy Needs Total Energy Estimated Needs: 3873-6518 kcal Method for Estimating Needs: @ 28-30 kcal/kg Total Protein Estimated Needs: 60 gm Method for Estimating Needs: @ 1.2 gm/kg Fluid Needs Total Fluid Estimated Needs: 1300-1600ml Method for Estimating Needs: 1ml/kcal Sheila Wu RD Office [phone] * [place] Galo LISW - 06/20/2024 3:43 PM EST Care Management Progress Note Date: 06/20/2024 Time: 3:43 PM Patient Name: Rome Castillo Date of : 1970 Discharge Plan: Plan A: Jail Facility Plan A : Post Acute Patient Choice 1: [facility] Discharging Transportation Plan: Discharge Plan Status: Handoff received from Ruthie James Patient is from [place] under medicaid. [place] would like for patient to return Skilled if he medically has skilled needs. Patient has guardian. [facility]/MIGULE will continue to follow. Assessment and Background Information: * Theresa Delgadillo [facility],PharmD - 06/20/2024 11:37 AM EST Pharmacy to Dose Antimicrobials Assessment / Plan: Rome Castillo is a 53 y.o. male initiated on vancomycin for sepsis. Vancomycin goal AUC is 400-600 mcg h/mL. Current regimen will produce a predicted AUC of 498 mcg h/mL with trough of 13.4 mcg/mL. Pharmacy will continue to follow and make adjustments as needed. Please use URBANARA to call pharmacy or secure chat the assigned pharmacist with questions. Dosing for this admission: Date Dose and interval before level (or initial dose) Level Dose and interval after level Notes/Follow-Up 06/20 1250mg q12h -- -- Level 06/21 Other active antibiotics include: piperacillin-tazobactam Objective: Lab Results Component Value Date CREATININE 0.52 06/20/2024 CREATININE 0.51 06/20/2024 CREATININE 0.68 04/14/2018 CREATININE 0.72 12/22/2017 CREATININE 0.64 07/06/2017 Lab Results Component Value Date WBC 11.17 (H) 06/20/2024 WBC 13.34 (H) 06/20/2024 WBC 14.24 (H) 06/20/2024 WBC 5.2 04/14/2018 WBC 4.0 12/23/2017 Ht Readings from Last 1 Encounters: 06/20/24 5' 2.01" (157.5 cm) Wt Readings from Last 1 Encounters: 06/20/24 59 kg (130 lb) [place] body weight: 54.6 kg (120 lb 6.6 oz) Adjusted ideal body weight: 56.4 kg (124 lb 4 oz) Patient Tmax (last 24 hours): 100.6 F Micro: pending Pharmacy Personnel: Theresa Delgadillo RPh,PharmD Contact: or Lenny documented in this [id number] NoteHMS DISCHARGE SUMMARY -- [facility] Rome Castillo Admitted: 06/20/2024 Discharge Date: 06/27/24 PCP Handoff Recommended Outpatient Testing None Results Pending At Discharge None Clinical Summary Rome Castillo is a 53 y.o. male patient of Cruzito Doe MD with history of cerebral palsy, who presented to [facility] on 06/20/2024 with displaced PEG. Acute hypoxic respiratory failure, resolved Patient have respiratory compromise and CT yesterday when he was laid flat. Had difficulty with secretions. Chest x-ray noted with some atelectasis. Oxygen weaned off. Now on room air. Sepsis, POA Gastric perforation Coffee-ground emesis Presented with dislodged recently placed PEG tube. Found to have pneumoperitoneum. Status post ex lap with James patch repair of gastric perforation and gastrostomy tube placement. Continue Zosyn and Diflucan. Blood culture negative. On TPN. 06/25 patient underwent am UGI with gastrografin through the G-tube, which showed appropriate positioning of the G-tube with no contrast extravasation. Patient was started on tube feeds. Management per general surgery Continue tube feeds Okay to stop antibiotics from general surgery standpoint Continue Protonix twice daily Acute hypernatremia Status post D5 water. Sodium improved. Cerebral palsy Contractures Restricted mobility Nursing to get records from facility/guardian Care management Not able to participate in therapy Resume home meds, risperidone , DC IV haldol Seizures Valproic acid. Insomnia Possible delirium Patient has not been sleeping per nursing staff. He is grinding his teeth quite a bit. Will add Seroquel low-dose nightly to see if that helps. Discharge Medications Discharge Medications New Medications Details omeprazole 40 MG capsule Commonly known as: PRILOSEC 1 (one) capsule (40 mg total) by Other route 2 (two) times a day . Quantity: 60 capsule Medications To Continue Details acetaminophen 325 MG suppository Commonly known as: TYLENOL Insert 1 (one) suppository (325 mg total) into the rectum every 4 (four) hours as needed for fever . bisacodyL 10 mg/30 mL Enem Commonly known as: FLEET Insert 30 mL (10 mg total) into the rectum daily as needed (constipation) . * divalproex 125 mg delayed release (DR) capsule Commonly known as: DEPAKOTE SPRINKLE 4 (four) capsules (500 mg total) by Other route at bedtime Per G tube . * divalproex 125 mg delayed release (DR) capsule Commonly known as: DEPAKOTE SPRINKLE 2 (two) capsules (250 mg total) by Other route daily Per G Tube . ibuprofen 100 mg/5 mL suspension Commonly known as: ADVIL,MOTRIN 10 mL (200 mg total) by Per G Tube route every 6 (six) hours as needed for pain . lactulose 20 gram/30 mL Soln Commonly known as: CHRONULAC Take 15 mL (10 g total) per G-tube 2 (two) times a day . loratadine 10 mg tablet Commonly known as: CLARITIN 1 (one) tablet (10 mg total) by Per G Tube route daily . mirtazapine 15 MG tablet Commonly known as: REMERON 1 (one) tablet (15 mg total) by Per G Tube route nightly . polyethylene glycol 17 gram powder Commonly known as: MIRALAX 17 (seventeen) g by Per G Tube route daily . risperiDONE 2 MG tablet Commonly known as: RISPERDAL 1 (one) tablet (2 mg total) by Per G Tube route daily . * There are duplicate medications prescribed to the patient Physician(s) Follow Up: [facility] Address: [address] [place] [id number] Servicing Counties: [place] [phone] Niraj Garcia, DO [address] [address] Schedule an appointment as soon as possible for a visit in 2 week(s) Staple removal Condition at Discharge: Stable Disposition: SNF I reviewed discharge recommendations with the patient in person. Patient instructions, including activity, were given to the patient/family at discharge. On day of discharge I saw Rome Castillo and spent: > 30 minutes on discharge. Completed by: Mary Padgett MD on 06/27/24, 11:16 AM AUTHENTICATED BY MARY PADGETT, ON 06/27/2024 13:12:33[facility] 06-27-2024 Hospital course Narrative* Mary Padgett MD - 06/27/2024 11:16 AM EST Images from the original note were not included. [facility] DISCHARGE SUMMARY -- [facility] Rome Castillo Admitted: 06/20/2024 Discharge Date: 06/27/24 PCP Handoff Recommended Outpatient Testing None Results Pending At Discharge None Clinical Summary Rome Castillo is a 53 y.o. male patient of Cruzito Doe MD with history of cerebral palsy, who presented to [facility] on 06/20/2024 with displaced PEG. Acute hypoxic respiratory failure, resolved Patient have respiratory compromise and CT yesterday when he was laid flat. Had difficulty with secretions. Chest x-ray noted with some atelectasis. Oxygen weaned off. Now on room air. Sepsis, POA Gastric perforation Coffee-ground emesis Presented with dislodged recently placed PEG tube. Found to have pneumoperitoneum. Status post ex lap with James patch repair of gastric perforation and gastrostomy tube placement. Continue Zosyn and Diflucan. Blood culture negative. On TPN. 06/25 patient underwent am UGI with gastrografin through the G-tube, which showed appropriate positioning of the G-tube with no contrast extravasation. Patient was started on tube feeds. Management per general surgery Continue tube feeds Okay to stop antibiotics from general surgery standpoint Continue Protonix twice daily Acute hypernatremia Status post D5 water. Sodium improved. Cerebral palsy Contractures Restricted mobility Nursing to get records from facility/guardian Care management Not able to participate in therapy Resume home meds, risperidone , DC IV haldol Seizures Valproic acid. Insomnia Possible delirium Patient has not been sleeping per nursing staff. He is grinding his teeth quite a bit. Will add Seroquel low-dose nightly to see if that helps. Discharge Medications Discharge Medications New Medications Details omeprazole 40 MG capsule Commonly known as: PRILOSEC 1 (one) capsule (40 mg total) by Other route 2 (two) times a day . Quantity: 60 capsule Medications To Continue Details acetaminophen 325 MG suppository Commonly known as: TYLENOL Insert 1 (one) suppository (325 mg total) into the rectum every 4 (four) hours as needed for fever . bisacodyL 10 mg/30 mL Enem Commonly known as: FLEET Insert 30 mL (10 mg total) into the rectum daily as needed (constipation) . * divalproex 125 mg delayed release (DR) capsule Commonly known as: DEPAKOTE SPRINKLE 4 (four) capsules (500 mg total) by Other route at bedtime Per G tube . * divalproex 125 mg delayed release (DR) capsule Commonly known as: DEPAKOTE SPRINKLE 2 (two) capsules (250 mg total) by Other route daily Per G Tube . ibuprofen 100 mg/5 mL suspension Commonly known as: ADVIL,MOTRIN 10 mL (200 mg total) by Per G Tube route every 6 (six) hours as needed for pain . lactulose 20 gram/30 mL Soln Commonly known as: CHRONULAC Take 15 mL (10 g total) per G-tube 2 (two) times a day . loratadine 10 mg tablet Commonly known as: CLARITIN 1 (one) tablet (10 mg total) by Per G Tube route daily . mirtazapine 15 MG tablet Commonly known as: REMERON 1 (one) tablet (15 mg total) by Per G Tube route nightly . polyethylene glycol 17 gram powder Commonly known as: MIRALAX 17 (seventeen) g by Per G Tube route daily . risperiDONE 2 MG tablet Commonly known as: RISPERDAL 1 (one) tablet (2 mg total) by Per G Tube route daily . * There are duplicate medications prescribed to the patient Physician(s) Follow Up: [facility] Address: [address] [place] [id number] Servicing Counties: [place] [phone] Niraj Garcia, DO [address] [place] [id number] Schedule an appointment as soon as possible for a visit in 2 week(s) Staple removal Condition at Discharge: Stable Disposition: SNF I reviewed discharge recommendations with the patient in person. Patient instructions, including activity, were given to the patient/family at discharge. On day of discharge I saw Rome Castillo and spent: > 30 minutes on discharge. Completed by: Mary Padgett MD on 06/27/24, 11:16 AM documented in this [id number] [facility] PATIENT: Rome Castillo DATE / TIME: 06/27/24 7:39 AM POS: Office AGE: 53 y.o. : 1970 RACE: [1] SEX: male PCP: Cruzito Doe MD REFERRAL: Donavan Givens MD TOS: POD #7 from exploratory laparotomy, with James patch repair of gastric perforation, and Amauri gastrostomy tube placement. SUBJECTIVE: No acute events overnight. KINA removed yesterday. TPN has been discontinued. Patient does not appear in any acute distress this morning. Tolerating tube feeds at 55 cc/hr OBJECTIVE: BP 100/68 (BP Location: Left arm, Patient Position: Lying) Pulse (!) 103 Temp 97.9 degrees F (36.6 degrees C) (Oral) Resp 15 Ht 5' 2" Wt 51.8 kg (114 lb 3.2 oz) SpO2 96% BMI 20.89 kg/m Physical exam: General: NAD, resting comfortably in bed Cardiac: Regular rate, and rhythm Pulmonary: Symmetrical chest expansion, nonlabored respirations. Abdomen: Soft, non-tender, nondistended. No guarding, or rigidity. No peritoneal signs. Incision clean, dry, intact with nae in place. G-tube in place with some skin breakdown present around the G-tube bumper site MSK: Moving all extremities spontaneously Neuro: CN II-XII grossly intact No leukocytosis. Hemoglobin stable at 12.7 ASSESSMENT: 53-year-old male with history of cerebral palsy, nonverbal at baseline, and bedbound, who presented to the hospital with dislodgment of his recently placed PEG tube. Now s/p exploratory laparotomy with James patch repair of gastric perforation, and Amauri gastrostomy tube placement on 06/20. UGI 06/25 with appropriate positioning of G-tube and no contrast extravasation. PLAN: Continue tube feeds Okay to stop antibiotics from general surgery standpoint Continue Protonix twice daily Continue Lovenox for DVT prophylaxis Daily CBC, and Chem-7 Apply zinc oxide to area of skin breakdown under G-tube bumper. Place gauze between bumper, and skin. Okay for discharge from general surgery standpoint. Follow up with me in the office in 2 weeks to remove nae. Niraj Garcia, General Surgery 7:39 AM 06/27/24 AUTHENTICATED BY NIRAJ GARCIA, ON 06/27/2024 07:41:29[facility] 06-27-2024 Hospital Discharge instructions* Discharge Instructions* Mirtha Solis, GROUND HOST/HOSTESS - 06/27/2024 7:39 AM EST ABDOMINAL SURGERY You have had surgery to your abdomen. To heal properly: Do not do any rough or demanding activity until follow up with the Outpatient Trauma office. We suggest you: Do not lift anything over 5 pounds (the weight of a gallon of milk) Do not participate in any sports Protect yourself from getting hit in the abdomen Do not drive or return to work At your Outpatient Trauma office appointment, you will get specific instructions on when you may resume these activities. Dressing: Your incisions have been closed with nae or sutures as determined by your surgeon. Keep your dressing/incision clean and dry for 48 hours after surgery. The nae or sutures will be removed at your Outpatient Trauma office follow up appointment. You may shower. If you have steri-strips (thin strips of white tape), leave them in place until your appointment with the Outpatient Trauma/Surgery office. If you have a Topical Skin Adhesive (or glue), this would naturally come off your skin in 5-10 days. Do not rub, scratch, or pick at the glue. Do not apply any medications on any products to wound while the glue is in place. You may shower only, after 24 hrs. No bathing, immersion or swimming for at least 10 days. Call the Outpatient Trauma/[facility] office [phone] for advice (Tuesday-Tuesday, 8am to 4pm) or proceed to the nearest Emergency Department if: You feel weak, lightheaded, or dizzy when you sit up or stand. Develop fever, chills, nausea, or vomiting You have increased abdominal or chest pain Your skin is pale, cool and/or clammy You have a rapid increase in your heart rate while resting. * Attachments The following attachments cannot be sent through Care Everywhere. * PEG (Percutaneous Endoscopic Gastrostomy): Post-op (Hong Konger) * Tube Feeding: Home (Hong Konger) documented in this [id number] NoteHMS PROGRESS NOTE Assessment and Plan Rome Castillo is a 53 y.o. male patient of Cruzito Doe MD with history of cerebral palsy, who presented to [facility] on 06/20/2024 with displaced PEG. Acute hypoxic respiratory failure, resolved Patient have respiratory compromise and CT yesterday when he was laid flat. Had difficulty with secretions. Chest x-ray noted with some atelectasis. Oxygen weaned off. Now on room air. Sepsis, POA Gastric perforation Coffee-ground emesis Presented with dislodged recently placed PEG tube. Found to have pneumoperitoneum. Status post ex lap with James patch repair of gastric perforation and gastrostomy tube placement. Continue Zosyn and Diflucan. Blood culture negative. On TPN. 06/25 patient underwent am UGI with gastrografin through the G-tube, which showed appropriate positioning of the G-tube with no contrast extravasation. Patient was started on tube feeds. Management per general surgery Acute hypernatremia Status post D5 water. Sodium improved. Cerebral palsy Contractures Restricted mobility Nursing to get records from facility/guardian Care management Not able to participate in therapy Resume home meds, risperidone , DC IV haldol Seizures Valproic acid. Insomnia Possible delirium Patient has not been sleeping per nursing staff. He is grinding his teeth quite a bit. Will add Seroquel low-dose nightly to see if that helps. Resolved acute medical issues Discharge Planning Medically Stable for Discharge Date: TBD Patient requires continued hospitalization due to: Pending upper GI follow-through. Discharge Location: assisted vs SNF Quality Measures DVT Prophylaxis: lovenox Ellsworth Catheter: present Code Status Full Primary Contact Information Subjective Remains nonverbal but rested and slept a little bit last night per nursing staff. Objective BP (!) 101/54 Pulse (!) 101 Temp 98.1 degrees F (36.7 degrees C) (Axillary) Resp 12 Ht 5' 2" Wt 53 kg (116 lb 13.5 oz) SpO2 95% BMI 21.37 kg/m Physical Examination General Appearance: somnolent; acute on chronically ill appearing; in mild acute distress HEENT: Head- normocephalic; Eyes- EOMI, sclera anicteric; Throat- mucous membranes moist Cardiovascular: regular rate and rhythm; normal S1, S2; no murmurs, rubs, clicks or gallops; peripheral edema absent Respiratory: lungs clear to auscultation; without wheezes, rales or rhonchi; on nasal cannula Abdomen: Ex lap with incision, PEG tube. Neurological: unable to assess orientation; nonverbal, contracted Musculoskeletal: no significant deformity or tenderness to palpation Skin: normal coloration Psych: Flat mood AUTHENTICATED BY MARY PADGETT ON 06/26/2024 10:40:24[facility]26[facility]: Rome Castillo DATE / TIME: 06/26/24 7:25 AM POS: Office AGE: 53 y.o. : 1970 RACE: [1] SEX: male PCP: Cruzito Doe MD REFERRAL: Donavan Givens MD TOS: POD #6 from exploratory laparotomy, with James patch repair of gastric perforation, and Amauri gastrostomy tube placement. SUBJECTIVE: Yesterday patient underwent am UGI with gastrografin through the G-tube, which showed appropriate positioning of the G-tube with no contrast extravasation. Patient was started on tube feeds. No acute events overnight. Patient does not appear in any acute distress this morning. Tolerating tube feeds at 55 cc/hr OBJECTIVE: BP (!) 94/51 Pulse 84 Temp 97.6 degrees F (36.4 degrees C) (Oral) Resp 18 Ht 5' 2" Wt 53 kg (116 lb 13.5 oz) SpO2 95% BMI 21.37 kg/m KINA output: serous Physical exam: General: NAD, resting comfortably in bed Cardiac: Regular rate, and rhythm Pulmonary: Symmetrical chest expansion, nonlabored respirations. Abdomen: Soft, non-tender, nondistended. No guarding, or rigidity. No peritoneal signs. Incision clean, dry, intact with nae in place. KINA with serous output. G-tube in place with some skin breakdown present around the G-tube bumper site MSK: Moving all extremities spontaneously Neuro: CN II-XII grossly intact No leukocytosis. Hemoglobin stable at 12.7 ASSESSMENT: 53-year-old male with history of cerebral palsy, nonverbal at baseline, and bedbound, who presented to the hospital with dislodgment of his recently placed PEG tube. Now s/p exploratory laparotomy with James patch repair of gastric perforation, and Amauri gastrostomy tube placement on 06/20. UGI 06/25 with appropriate positioning of G-tube and no contrast extravasation. PLAN: Continue tube feeds Okay to stop TPN Will plan to remove KINA later today Okay to stop antibiotics from general surgery standpoint Continue Protonix twice daily Continue Lovenox for DVT prophylaxis Daily CBC, and Chem-7 Apply zinc oxide to area of skin breakdown under G-tube bumper. Place gauze between bumper, and skin. Okay for discharge from general surgery standpoint. Follow up with me in the office in 2 weeks to remove nae. Niraj Garcia DO General Surgery 7:25 AM 06/26/24 AUTHENTICATED BY NIRAJ GARCIA, ON 06/26/2024 07:33:50[facility] 06-25-2024 NoteHMS PROGRESS NOTE Assessment and Plan Rome Castillo is a 53 y.o. male patient of Cruzito Doe MD with history of cerebral palsy, who presented to [facility] on 06/20/2024 with displaced PEG. Acute hypoxic respiratory failure, resolved Patient have respiratory compromise and CT yesterday when he was laid flat. Had difficulty with secretions. Chest x-ray noted with some atelectasis. Oxygen weaned off. Now on room air. Sepsis, POA Gastric perforation Coffee-ground emesis Presented with dislodged recently placed PEG tube. Found to have pneumoperitoneum. Status post ex lap with James patch repair of gastric perforation and gastrostomy tube placement. Continue Zosyn and Diflucan. Blood culture negative. On TPN. Upper GI today. If okay can start on trickle tube feeds. Management per general surgery CBC tomorrow. Acute hypernatremia Status post D5 water. Sodium improved. Cerebral palsy Contractures Restricted mobility Nursing to get records from facility/guardian Care management Not able to participate in therapy Haldol IV nightly until PEG can be used. Seizures Valproic acid Insomnia Possible delirium Patient has not been sleeping per nursing staff. He is grinding his teeth quite a bit. Will add Seroquel low-dose nightly to see if that helps. Resolved acute medical issues Discharge Planning Medically Stable for Discharge Date: TBD Patient requires continued hospitalization due to: Pending upper GI follow-through. Discharge Location: assisted vs SNF Quality Measures DVT Prophylaxis: lovenox Ellsworth Catheter: present Code Status Full Primary Contact Information Subjective Remains nonverbal but rested and slept a little bit last night per nursing staff. Will continue on low-dose Seroquel. Objective BP 121/76 Pulse 62 Temp 97.4 degrees F (36.3 degrees C) (Axillary) Resp 15 Ht 5' 2" Wt 53 kg (116 lb 13.5 oz) SpO2 96% BMI 21.37 kg/m Physical Examination General Appearance: somnolent; acute on chronically ill appearing; in mild acute distress HEENT: Head- normocephalic; Eyes- EOMI, sclera anicteric; Throat- mucous membranes moist Cardiovascular: regular rate and rhythm; normal S1, S2; no murmurs, rubs, clicks or gallops; peripheral edema absent Respiratory: lungs clear to auscultation; without wheezes, rales or rhonchi; on nasal cannula Abdomen: Ex lap with incision, PEG tube. Neurological: unable to assess orientation; nonverbal, contracted Musculoskeletal: no significant deformity or tenderness to palpation Skin: normal coloration Psych: Flat mood AUTHENTICATED BY ADALGISA VOSS ON 06/25/2024 10:59:33[facility] 06-25-2024 [facility]IENT: Rome Castillo DATE / TIME: 06/25/24 7:28 AM POS: Office AGE: 53 y.o. : 1970 RACE: [1] SEX: male PCP: Cruzito Doe MD REFERRAL: Donavan Givens MD TOS: POD #5 from exploratory laparotomy, with James patch repair of gastric perforation, and Amauri gastrostomy tube placement. SUBJECTIVE: No acute events overnight. Patient does not appear in any acute distress this morning OBJECTIVE: BP (!) 148/60 (BP Location: Left arm, Patient Position: Lying) Pulse 80 Temp 97.8 degrees F (36.6 degrees C) (Axillary) Resp 15 Ht 5' 2" Wt 53 kg (116 lb 13.5 oz) SpO2 96% BMI 21.37 kg/m Urine output: 3550 cc over 24 hours KINA output: 150 cc over the last 24 hours serous G-tube output: 0 cc over last 24 hours Physical exam: General: NAD, resting comfortably in bed Cardiac: Regular rate, and rhythm Pulmonary: Symmetrical chest expansion, nonlabored respirations. Abdomen: Soft, non-tender, nondistended. No guarding, or rigidity. No peritoneal signs. Incision clean, dry, intact with nae in place. KINA with serous output. G-tube to gravity with minimal gastric output. Some skin breakdown present around the G-tube bumper site, with mild erythema MSK: Moving all extremities spontaneously Neuro: CN II-XII grossly intact No leukocytosis. Hemoglobin stable at 11.9 ASSESSMENT: 53-year-old male with history of cerebral palsy, nonverbal at baseline, and bedbound, who presented to the hospital with dislodgment of his recently placed PEG tube. Now s/p exploratory laparotomy with James patch repair of gastric perforation, and Amauri gastrostomy tube placement on 06/20 PLAN: Will plan for upper GI with Gastrografin through G-tube today (06/25) If appropriate placement of G-tube, and no extravasation of contrast noted on upper GI, okay to start tube feeds at 10 cc an hour through G-tube, and advance 10 cc every 4 hours to goal Keep n.p.o. with IV fluid resuscitation Continue TPN Keep KINA, and monitor output Continue Zosyn, and Diflucan Continue Protonix twice daily Continue Lovenox for DVT prophylaxis Daily CBC, and Chem-7 Apply zinc oxide to area of skin breakdown under G-tube bumper. Place gauze between bumper, and skin. Niraj Garcia DO General Surgery 7:28 AM 06/25/24 AUTHENTICATED BY NIRAJ GARCIA, ON 06/25/2024 07:31:30[facility] 06-24-2024 NoteHMS PROGRESS NOTE Assessment and Plan Rome Castillo is a 53 y.o. male patient of Cruzito Doe MD with history of cerebral palsy, who presented to [facility] on 06/20/2024 with displaced PEG. Acute hypoxic respiratory failure, resolved Patient have respiratory compromise and CT yesterday when he was laid flat. Had difficulty with secretions. Chest x-ray noted with some atelectasis. Oxygen weaned off. Now on room air. Sepsis, POA Gastric perforation Coffee-ground emesis Presented with dislodged recently placed PEG tube. Found to have pneumoperitoneum. Status post ex lap with James patch repair of gastric perforation and gastrostomy tube placement. Continue Zosyn and Diflucan. Blood culture negative. On TPN. Management per general surgery. Plan for upper GI on Tuesday. CBC tomorrow. Acute hypernatremia Status post D5 water. Sodium improved. Cerebral palsy Contractures Restricted mobility Nursing to get records from facility/guardian Care management Not able to participate in therapy Haldol IV nightly until PEG can be used. Seizures Valproic acid Insomnia Possible delirium Patient has not been sleeping per nursing staff. He is grinding his teeth quite a bit. Will add Seroquel low-dose nightly to see if that helps. Resolved acute medical issues Discharge Planning Medically Stable for Discharge Date: TBD Patient requires continued hospitalization due to: Pending upper GI follow-through. Discharge Location: assisted vs SNF Quality Measures DVT Prophylaxis: lovenox Ellsworth Catheter: present Code Status Full Primary Contact Information Subjective Remains nonverbal at baseline. In no acute distress. Per nursing staff he has not slept much. Objective BP 102/71 Pulse 73 Temp 97.5 degrees F (36.4 degrees C) (Oral) Resp 18 Ht 5' 2" Wt 56.4 kg (124 lb 5.4 oz) SpO2 92% BMI 22.74 kg/m Physical Examination General Appearance: somnolent; acute on chronically ill appearing; in mild acute distress HEENT: Head- normocephalic; Eyes- EOMI, sclera anicteric; Throat- mucous membranes moist Cardiovascular: regular rate and rhythm; normal S1, S2; no murmurs, rubs, clicks or gallops; peripheral edema absent Respiratory: lungs clear to auscultation; without wheezes, rales or rhonchi; on nasal cannula Abdomen: Ex lap with incision, PEG tube. Neurological: unable to assess orientation; nonverbal, contracted Musculoskeletal: no significant deformity or tenderness to palpation Skin: normal coloration Psych: Flat mood AUTHENTICATED BY ADALGISA VOSS, ON 06/24/2024 10:26:52[facility] 06-24-2024 [facility]IENT: Rome Castillo DATE / TIME: 06/24/24 7:56 AM POS: Office AGE: 53 y.o. : 1970 RACE: [1] SEX: male PCP: Cruzito Doe MD REFERRAL: Donavan Givens MD TOS: POD #4 from exploratory laparotomy, with James patch repair of gastric perforation, and Amauri gastrostomy tube placement. SUBJECTIVE: No acute events overnight. Patient does not appear in any acute distress this morning OBJECTIVE: BP 102/71 Pulse 73 Temp 97.5 degrees F (36.4 degrees C) (Oral) Resp 18 Ht 5' 2" Wt 56.4 kg (124 lb 5.4 oz) SpO2 92% BMI 22.74 kg/m Urine output: 1550 cc over 24 hours KINA output: 70 cc over the last 24 hours G-tube output: 70 cc over last 24 hours Physical exam: General: NAD, resting comfortably in bed Cardiac: Regular rate, and rhythm Pulmonary: Symmetrical chest expansion, nonlabored respirations. Abdomen: Soft, appropriately tender, nondistended. No guarding, or rigidity. No peritoneal signs. Incision clean, dry, intact with nae in place. IKNA with serosanguineous output. G-tube to gravity with gastric output. Some skin breakdown present around the G-tube bumper site, with mild erythema MSK: Moving all extremities spontaneously Neuro: CN II-XII grossly intact No leukocytosis. Hemoglobin stable at 10.8 ASSESSMENT: 53-year-old male with history of cerebral palsy, nonverbal at baseline, and bedbound, who presented to the hospital with dislodgment of his recently placed PEG tube. Now s/p exploratory laparotomy with James patch repair of gastric perforation, and Amauri gastrostomy tube placement on 06/20 PLAN: Keep n.p.o. with IV fluid resuscitation Continue TPN Keep G-tube to gravity Keep KINA, and monitor output Continue Zosyn, and Diflucan Continue Protonix twice daily Continue Lovenox for DVT prophylaxis Will plan for upper GI through G-tube 5 days from surgery (06/25) Daily CBC, and Chem-7 Apply zinc oxide to area of skin breakdown under G-tube bumper. Place gauze between bumper, and skin. Niraj Garcia, DO General Surgery 7:56 AM 06/24/24 AUTHENTICATED BY NIRAJ GARCIA, ON 06/24/2024 07:57:58[facility] 06-23-2024 NoteS PROGRESS NOTE Assessment and Plan Rome Castillo is a 53 y.o. male patient of Cruzito Doe MD with history of cerebral palsy, who presented to [facility] on 06/20/2024 with displaced PEG. Acute hypoxic respiratory failure Patient have respiratory compromise and CT yesterday when he was laid flat. Had difficulty with secretions. Chest x-ray noted with some atelectasis. Wean oxygen as able. Sepsis, POA Gastric perforation Coffee-ground emesis Presented with dislodged recently placed PEG tube. Found to have pneumoperitoneum. Status post ex lap with James patch repair of gastric perforation and gastrostomy tube placement. Continue Zosyn and Diflucan. Blood culture negative. On TPN. Management per general surgery. Plan for upper GI on Tuesday. Acute hypernatremia Status post D5 water. Sodium improved. BMP tomorrow. Cerebral palsy Contractures Restricted mobility Nursing to get records from facility/guardian Care management Not able to participate in therapy Haldol IV nightly until PEG can be used. Seizures Valproic acid Resolved acute medical issues Discharge Planning Medically Stable for Discharge Date: TBD Patient requires continued hospitalization due to: Pending upper GI follow-through. Discharge Location: assisted vs SNF Quality Measures DVT Prophylaxis: lovenox Ellsworth Catheter: present Code Status Full Primary Contact Information Subjective Patient remains nonverbal at baseline. Not in any acute distress. Objective BP 119/77 Pulse (!) 7 Temp 97.1 degrees F (36.2 degrees C) (Axillary) Resp 16 Ht 5' 2" Wt 57.8 kg (127 lb 6.8 oz) SpO2 96% BMI 23.31 kg/m Physical Examination General Appearance: somnolent; acute on chronically ill appearing; in mild acute distress HEENT: Head- normocephalic; Eyes- EOMI, sclera anicteric; Throat- mucous membranes moist Cardiovascular: regular rate and rhythm; normal S1, S2; no murmurs, rubs, clicks or gallops; peripheral edema absent Respiratory: lungs clear to auscultation; without wheezes, rales or rhonchi; on nasal cannula Abdomen: Ex lap with incision, PEG tube. Neurological: unable to assess orientation; nonverbal, contracted Musculoskeletal: no significant deformity or tenderness to palpation Skin: normal coloration Psych: Flat mood AUTHENTICATED BY ADALGISA VOSS ON 06/23/2024 11:55:[address] [place] [address] 06-23-2024 [facility]IENT: Rome Castillo DATE / TIME: 06/23/24 8:36 AM POS: Office AGE: 53 y.o. : 1970 RACE: [1] SEX: male PCP: Cruzito Doe MD REFERRAL: Donavan Givens MD TOS: POD #3 from exploratory laparotomy, with James patch repair of gastric perforation, and Amauri gastrostomy tube placement. SUBJECTIVE: No acute events overnight. Patient does not appear in any acute distress this morning OBJECTIVE: BP 119/77 Pulse (!) 57 Temp 97.1 degrees F (36.2 degrees C) (Axillary) Resp 16 Ht 5' 2" Wt 57.8 kg (127 lb 6.8 oz) SpO2 96% BMI 23.31 kg/m Urine output: 575 cc over 24 hours. Multiple incontinent episodes KINA output: 35 cc over the last 24 hours G-tube output: 190 cc over last 24 hours Physical exam: General: NAD, resting comfortably in bed Cardiac: Regular rate, and rhythm Pulmonary: Symmetrical chest expansion, nonlabored respirations. Abdomen: Soft, appropriately tender, nondistended. No guarding, or rigidity. No peritoneal signs. Incision clean, dry, intact with nae in place. KINA with serosanguineous output. G-tube to gravity with gastric output. Some skin breakdown present around the G-tube bumper site, with mild erythema MSK: Moving all extremities spontaneously Neuro: CN II-XII grossly intact No leukocytosis. Hemoglobin stable at 10.1 ASSESSMENT: 53-year-old male with history of cerebral palsy, nonverbal at baseline, and bedbound, who presented to the hospital with dislodgment of his recently placed PEG tube. Now s/p exploratory laparotomy with James patch repair of gastric perforation, and Amauri gastrostomy tube placement on 06/20 PLAN: Keep n.p.o. with IV fluid resuscitation Continue TPN Keep G-tube to gravity Keep KINA, and monitor output Continue Zosyn, and Diflucan Continue Protonix twice daily Continue Lovenox for DVT prophylaxis Will plan for upper GI through G-tube 5 days from surgery (06/25) Daily CBC, and Chem-7 Apply zinc oxide to area of skin breakdown under G-tube bumper. Place gauze between bumper, and skin. Niraj Garcia, DO General Surgery 8:36 AM 06/23/24 AUTHENTICATED BY NIRAJ GARCIA, ON 06/23/2024 08:38:[address] [place] [address] 06-22-2024 NoteS PROGRESS NOTE Assessment and Plan Rome Castillo is a 53 y.o. male patient of Cruzito Doe MD with history of cerebral palsy, who presented to [facility] on 06/20/2024 with displaced PEG. Acute hypoxic respiratory failure Patient have respiratory compromise and CT yesterday when he was laid flat. Had difficulty with secretions. Chest x-ray noted with some atelectasis. Wean oxygen as able. Sepsis, POA Gastric perforation Coffee-ground emesis Presented with dislodged recently placed PEG tube. Found to have pneumoperitoneum. Status post ex lap with James patch repair of gastric perforation and gastrostomy tube placement. Continue Zosyn and Diflucan. Blood culture negative. On TPN. Management per general surgery. Acute hyponatremia Sodium 147 today. Started D5 water 100 cc an hour for 1 day. BMP tomorrow. Cerebral palsy Contractures Restricted mobility Nursing to get records from facility/guardian Care management Not able to participate in therapy Haldol IV nightly until PEG can be used. Seizures Valproic acid Resolved acute medical issues Discharge Planning Medically Stable for Discharge Date: TBD Patient requires continued hospitalization due to: pending GS clearance Discharge Location: assisted vs SNF Quality Measures DVT Prophylaxis: lovenox Ellsworth Catheter: present Code Status Full Primary Contact Information Subjective Patient more awake and alert, grinding his teeth this morning extremities contracted. Moving spontaneously Objective BP 114/73 Pulse (!) 48 Temp 97.8 degrees F (36.6 degrees C) (Axillary) Resp (!) 11 Ht 5' 2" Wt 56 kg (123 lb 7.3 oz) SpO2 95% BMI 22.58 kg/m Physical Examination General Appearance: somnolent; acute on chronically ill appearing; in mild acute distress HEENT: Head- normocephalic; Eyes- EOMI, sclera anicteric; Throat- mucous membranes moist Cardiovascular: regular rate and rhythm; normal S1, S2; no murmurs, rubs, clicks or gallops; peripheral edema absent Respiratory: lungs clear to auscultation; without wheezes, rales or rhonchi; on nasal cannula Abdomen: Ex lap with incision, PEG tube. Neurological: unable to assess orientation; nonverbal, contracted Musculoskeletal: no significant deformity or tenderness to palpation Skin: normal coloration Psych: Flat mood AUTHENTICATED BY ADALGISA VOSS ON 06/22/2024 10:38:[address] [place] [address] 06-22-2024 Note Attestation signed by Niraj Garcia DO at 06/22/2024 12:14 PM [facility] PATIENT: Rome Castillo DATE / TIME: 06/22/24 12:06 PM POS: Office AGE: 53 y.o. : 1970 RACE: [1] SEX: male PCP: Cruzito Doe MD REFERRAL: Donavan Givens MD TOS: POD #2 from exploratory laparotomy, with James patch repair of gastric perforation, and Amauri gastrostomy tube placement. SUBJECTIVE: Febrile overnight to 100.4. Downgraded from ICU. Ellsworth catheter removed. Incontinent of urine. Patient does not appear in any acute distress this morning OBJECTIVE: BP 101/64 (BP Location: Left arm, Patient Position: Lying) Pulse 74 Temp 98.6 degrees F (37 degrees C) (Axillary) Resp 16 Ht 5' 2" Wt 56 kg (123 lb 7.3 oz) SpO2 93% BMI 22.58 kg/m Urine output: 550 cc / 24 hrs KINA output: 90 cc /24 hrs serosang G-tube output: 30 cc / 24 hrs Physical exam: General: NAD, resting comfortably in bed Cardiac: Regular rate, and rhythm Pulmonary: Symmetrical chest expansion, nonlabored respirations. Abdomen: Soft, appropriately tender, nondistended. No guarding, or rigidity. No peritoneal signs. Incision clean, dry, intact with overlying dressing. KINA with serosanguineous output. G-tube to gravity with gastric output. MSK: Moving all extremities spontaneously Neuro: CN II-XII grossly intact No leukocytosis. Hemoglobin stable at 11.0 ASSESSMENT: 53-year-old male with history of cerebral palsy, nonverbal at baseline, and bedbound, who presented to the hospital with dislodgment of his recently placed PEG tube. Now s/p exploratory laparotomy with James patch repair of gastric perforation, and Amauri gastrostomy tube placement on 06/20 PLAN: Keep n.p.o. with IV fluid resuscitation Continue TPN Keep G-tube to gravity Keep KINA, and monitor output Continue Zosyn, and Diflucan Continue Protonix twice daily Continue Lovenox for DVT prophylaxis Will plan for upper GI through G-tube 5 days from surgery (06/25) Daily CBC, and Chem-7 Niraj Garcia DO General Surgery 12:06 PM 06/22/24 [facility] DAILY PROGRESS NOTE SURGICAL PROBLEM Gastric Perforation ASSESSMENT & PLAN/ACTIVE MEDICAL PROBLEMS: Gastric Perforation S/p exploratory laparotomy, with James patch repair of gastric perforation, and Amauri gastrostomy tube placement WBC 9, TMAX 100.4 overnight, HDS KINA with 90 ml / 24 hours Maintain NPO with IVF; Continue TPN Maintain G tube to gravity, continue KINA. Continue zosyn, diflucan PPI BID, Lovenox Plan for upper GI study 06/25 SURGERIES/PROCEDURES: Date Operation/Procedure Provider Name 06/20/2024 Exploratory laparotomy, with James patch repair of gastric perforation, and Amauri gastrostomy tube placement Dr. Garcia INCIDENTAL FINDINGS: N/A. RESOLVED PROBLEMS: DISPOSITION PLAN - per primary Antibiotics: tbd With Drain: no Dressing changes NA. Follow up within: TBD CHIEF COMPLAINT/ HPI / PFSHx / EVENTS OVER LAST 24HRS: Resting in bed, no acute overnight events, Continue TPN, maintain NPO. REVIEW OF SYSTEMS: Other than the above items the remainder of the complete ROS is otherwise unchanged from admission. PHYSICAL EXAM: Temp: [97.5 degrees F (36.4 degrees C)-100.4 degrees F (38 degrees C)] 97.8 degrees F (36.6 degreesC) Heart Rate: [48-95] 48 Resp: [11-30] 11 BP: (103-160)/(45-112) 114/73 GENERAL: Appears age appropriate. No acute distress. NEUROLOGICAL: Alert. Pupils equal, round, reactive to light. Head: Atraumatic, normocephalic. CARDIOVASCULAR: Regular rate and rhythm. No peripheral edema noted. RESPIRATORY: Respiratory effort unlabored without use of accessory muscles. ABDOMINAL: Rounded, soft, nontender, non distended. G tube to gravity. Abdominal KINA with minimal serosanguinous output. Midabdominal dressing CDI. No guarding or peritoneal signs. GENITOURINARY: Normal genitalia for age without lesion or trauma. MUSCULOSKELETAL: Extremities atraumatic without gross deformity x4. SKIN: Skin warm and dry. Intake/Output Summary (Last 24 hours) at 06/22/2024 1004 Last data filed at 06/22/2024 0900 Gross per 24 hour Intake 873.85 ml Output 820 ml Net 53.85 ml IMAGING [briefly note any results pertinent to today's evaluation]: No new imaging LABS Lab Results Component Value Date WBC 9.11 06/22/2024 HGB 11.0 (L) 06/22/2024 HCT 30.6 (L) 06/22/2024 MCV 94.7 06/22/2024 EXTMCV 92.0 04/14/2018 PLT 141 (L) 06/22/2024 RBC 3.23 (L) 06/22/2024 Lab Results Component Value Date GLUCOSE 107 (H) 06/22/2024 CALCIUM 8.5 06/22/2024 NA 147 (H) 06/22/2024 K 3.9 06/22/2024 CL (more content not included)...[facility]11-28-2024 [facility] PATIENT: Rome Castillo DATE / TIME: 06/21/24 10:40 AM POS: Office AGE: 53 y.o. : 1970 RACE: [1] SEX: male PCP: Cruzito Doe MD REFERRAL: Donavan Givens MD TOS: POD #1 from exploratory laparotomy, with James patch repair of gastric perforation, and Amauri gastrostomy tube placement. SUBJECTIVE: No acute events overnight. Patient does not appear in any acute distress this morning OBJECTIVE: BP (!) 146/131 (BP Location: Left arm, Patient Position: Lying) Pulse 89 Temp 98 degrees F (36.7 degrees C) (Axillary) Resp 12 Ht 5' 2" Wt 51.6 kg (113 lb 12.1 oz) SpO2 95% BMI 20.81 kg/m Urine output: 1025 cc since surgery KINA output: 40 cc since surgery G-tube output: 60 cc since surgery Physical exam: General: NAD, resting comfortably in bed Cardiac: Regular rate, and rhythm Pulmonary: Symmetrical chest expansion, nonlabored respirations. Abdomen: Soft, appropriately tender, nondistended. No guarding, or rigidity. No peritoneal signs. Incision clean, dry, intact with overlying dressing. KINA with serosanguineous output. G-tube to gravity with gastric output. MSK: Moving all extremities spontaneously Neuro: CN II-XII grossly intact No leukocytosis. Hemoglobin stable at 11.8 ASSESSMENT: 53-year-old male with history of cerebral palsy, nonverbal at baseline, and bedbound, who presented to the hospital with dislodgment of his recently placed PEG tube. Now s/p exploratory laparotomy with James patch repair of gastric perforation, and Amauri gastrostomy tube placement on 06/20 PLAN: Keep n.p.o. with IV fluid resuscitation PICC line placed yesterday. Will plan to start TPN Keep G-tube to gravity Keep KINA, and monitor output Continue Zosyn, and Diflucan Continue Protonix twice daily Start Lovenox for DVT prophylaxis Okay for downgrade from ICU from general surgery standpoint Will plan for upper GI through G-tube 5 days from surgery (06/25) Daily CBC, and Chem-7 Niraj Garcia, DO General Surgery 10:47 AM 06/21/24 AUTHENTICATED BY NIRAJ GARCIA, ON 06/21/2024 10:47:[address] [place] [address] 06-21-2024 NoteHMS PROGRESS NOTE Assessment and Plan Rome Castillo is a 53 y.o. male patient of Cruzito Doe MD with history of cerebral palsy, who presented to [facility] on 06/20/2024 with displaced PEG. Acute hypoxic respiratory failure Patient have respiratory compromise and CT yesterday when he was laid flat. Had difficulty with secretions. Chest x-ray noted with some atelectasis. Wean oxygen as able. Sepsis, POA Gastric perforation Coffee-ground emesis Presented with dislodged recently placed PEG tube. Found to have pneumoperitoneum. Status post ex lap with James patch repair of gastric perforation and gastrostomy tube placement. Continue Zosyn and Diflucan. On TPN. Management per general surgery. Cerebral palsy Contractures Restricted mobility Nursing to get records from facility/guardian Care management Not able to participate in therapy Haldol IV nightly until PEG can be used. Seizures Valproic acid Resolved acute medical issues Discharge Planning Medically Stable for Discharge Date: TBD Patient requires continued hospitalization due to: pending GS clearance Discharge Location: assisted vs SNF Quality Measures DVT Prophylaxis: lovenox Ellsworth Catheter: present Code Status Full Primary Contact Information Subjective Patient with cerebral palsy slightly contracted in the bed, remains nonverbal. Objective BP (!) 146/131 (BP Location: Left arm, Patient Position: Lying) Pulse 89 Temp 98 degrees F (36.7 degrees C) (Axillary) Resp 12 Ht 5' 2" Wt 51.6 kg (113 lb 12.1 oz) SpO2 95% BMI 20.81 kg/m Physical Examination General Appearance: somnolent; acute on chronically ill appearing; in mild acute distress HEENT: Head- normocephalic; Eyes- EOMI, sclera anicteric; Throat- mucous membranes moist Cardiovascular: regular rate and rhythm; normal S1, S2; no murmurs, rubs, clicks or gallops; peripheral edema absent Respiratory: lungs clear to auscultation; without wheezes, rales or rhonchi; on nasal cannula Abdomen: Ex lap with incision, PEG tube. Neurological: unable to assess orientation; nonverbal, contracted Musculoskeletal: no significant deformity or tenderness to palpation Skin: normal coloration Psych: Flat mood AUTHENTICATED BY ADALGISA VOSS ON 06/21/2024 10:29:24[facility] 06-20-2024 Procedure note* Suzanne Cullen RN - 06/20/2024 4:30 PM EST IV team consulted for PICC placement. Chart and History reviewed. triple lumen PICC inserted following universal protocol into right basilic vein. PICC trimmed at 37cm. External length at 1cm. Patient tolerated well. PICC okay to use as tip is confirmed in lower SVC per ECG technology - maximum P wave and absence of negative deflection. Invasive Line Insertion Checklist followed. Flushes easily with good blood return. RN notified OK to use. documented in this [id number] Consult note* Ruthie Carrington RN - 06/20/2024 1:12 PM ESTAssociated Order(s): IP CONSULT TO CARE MANAGEMENT; IP CONSULT TO CARE MANAGEMENT Care Management Consult Note Date: 06/20/2024 Time: 1:13 PM Patient Name: Rome Castillo Date of : 1970 Reason for Consult: Discharge Plan: Plan A: Jail Facility Plan A : Post Acute Patient Choice 1: [facility] Discharging Transportation Plan: Discharge Plan Status: pend medical readiness Assessment and Background Information: Per chart, pt is from [facility] and Radha, BERENICE, aware. Per RN, pt's guardian listed onfile is not up to date. Call to [place] and provided with current guardian and paperwork faxed to [place]. RN attempted to reach pt's guardian, Amira Rivera, but she is out of town. Per oncdenisha guardian, consent was given to treat and plan will be for pt to discharge back to [place] where he has been under his Medicaid for 30 days s/p PEG tube placement. Per Senthil, pt previously from halfway. Pt is bedbound w/ contractures. Pt will need transport to return to [place] at discharge. CM to follow. Living Arrangements: Facility Support Systems: Home care staff Assistance Needed: yes Type of Residence: [facility] Care Facility Name: [facility] Prior to Admission Home Care Services: No Patient expects to be discharged to:: [place] Does the patient need discharge transport arranged?: Yes Has discharge transport been arranged?: No Current Home Equipment: Other (Comment) (per SNF) Holistic Assessment Medication adherence problem:: (unknown) History of falls in last 6 months:: (unknown) Family aware of the patient's advance care planning wishes:: Yes (pt has guardian) Do you have any cultural/spiritual connections or beliefs that would impact how we deliver your care?: (unknown) Chronic pain:: (unknown) * Leyda Ornelas CNP - 06/20/2024 11:00 AM EST [facility] SURGICAL HISTORY & PHYSICAL/CONSULTATION NOTE SURGICAL PROBLEM Dislodged PEG tube ASSESSMENT & PLAN/ACTIVE MEDICAL PROBLEMS: Dislodged PEG -Inadvertent PEG removal in the immediate post op period could represent surgical emergency -Pt now febrile and tachycardic, IVF and antibiotics have been ordered -KUB obtained STAT at bedside and personally reviewed-no obvious free air appreciated -Obtain STAT CT AP, nursing working on contact info for guardian CHIEF COMPLAINT: Dislodged PEG HISTORY OF PRESENT ILLNESS / INJURY (HPI): Mr Castillo is a 53 yo male with cerebral palsy, he is bedbound and nonverbal, the patient is cachectic with contractures of his extremities, he had a PEG tube placed 06/18/2024 at hospital and returned to the jail. Apparently the patient pulled the tube yesterday and was sent back to [facility]. Per reports the GI/surgeon was on vacation and the hospital sent the patient back to the jail to return in 5 days. The jail sent him to [facility] for reevaluation and patient was then transferred to [facility]. I did call the jail where he resides and they did confirm this was a new feeding tube and not a simple replacement. He was evaluated in room 2017, he is alert but nonverbal. He is now tachycardic with fevers, does not appear peritoneal but mild abdominal discomfort on exam. 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 MEDICATIONS: Current Facility-Administered Medications on File Prior to Encounter Medication Dose Route Frequency Provider Last Rate Last Admin [COMPLETED] ondansetron (ZOFRAN) injection 4 mg 4 mg Intravenous Once Donavan Givens MD 4 mg at 06/20/24 18 [COMPLETED] pantoprazole (PROTONIX) Vial 80 mg 80 mg Intravenous Once Donavan Givens MD 80 mg at 06/20/24 0258 [COMPLETED] valproate (DEPACON) 500 mg in sodium chloride 0.9 % (NS) 100 mL IVPB 500 mg IntravenousOnce Donavan Givens MD Stopped at 06/20/24 0511 [DISCONTINUED] sodium chloride 0.9% (NS) 100 mL/hr Intravenous Continuous Donavan Givens MD Stopped at 06/20/24 0855 Current Outpatient Medications on File Prior to Encounter Medication Sig Dispense Refill divalproex (DEPAKOTE ER) 500 MG 24 hr tablet 1 (one) tablet (500 mg total) by Other route at bedtime Per G tube . divalproex (DEPAKOTE) [address] tablet 1 (one) tablet (125 mg total) by Other route daily Per G Tube . loratadine (CLARITIN) 5 mg chewable tablet 1 (one) tablet (5 mg total) by Per G Tube route daily . mirtazapine (REMERON) 15 MG tablet 1 (one) tablet (15 mg total) by Per G Tube route nightly . polyethylene glycol (MIRALAX) 17 gram powder 17 (seventeen) g by Per G Tube route daily . risperiDONE (RISPERDAL) 2 MG tablet 1 (one) tablet (2 mg total) by Per G Tube route nightly . ALLERGIES: No Known Allergies REVIEW OF SYSTEMS: Unable to assess PHYSICAL EXAM: BP 119/68 Pulse (!) 105 Temp (!) 100.6 F (38.1 C) (Axillary) SpO2 94% There is no height or weight on file to calculate BMI. GENERAL: Chronically ill appearing NEUROLOGICAL: Alert. Extremities x4, equal strength. Pupils equal, round, reactive to light. Head Eyes Ear Nose Throat: Head: Atraumatic, normocephalic. Eyes: Conjunctivae/sclerae/corneas clear. Ears: External ear normal. Hearing within normal limits for patient. No drainage. Nose: nares normal, septum midline, no drainage or nasal tenderness. Throat: phonation normal Neck: Supple, trachea midline, no midline tenderness, step offs, bony crepitus. CARDIOVASCULAR: Tachy rate and rhythm. No clicks, rubs, murmurs or gallops noted. No peripheral edema noted. 2+ pulses radial/DP/PT bilaterally. RESPIRATORY: Lungs, clear to auscultation bilaterally. No rhonchi, wheezes or crackles. Respiratoryeffort unlabored without use of accessory muscles. ABDOMINAL: Rounded, soft, minimally TTP, nondistended, normal bowel sounds. No guarding or peritoneal signs. GENITOURINARY: Normal genitalia for age without lesion or trauma. Rectal exam - defer MUSCULOSKELETAL: Extremities atraumatic without gross deformity x4. ROM appropriate for age. No clubbing, cyanosis or joint edema. SPINE: No midline tenderness, stepoffs, or bony tenderness to thoracic and lumbar spine SKIN: Skin warm and dry. No rashes or lesions. IMAGING STUDIES: I have reviewed the following: KUB obtained and personally reviewed at the bedside LABORATORY STUDIES: Lab Results Component Value Date WBC 13.34 (H) 06/20/2024 HGB 14.2 06/20/2024 HCT 42.2 06/20/2024 MCV 90.8 06/20/2024 EXTMCV 92.0 04/14/2018 PLT 178 06/20/2024 RBC 4.65 06/20/2024 Lab Results Component Value Date BUN 13 06/20/2024 CREATININE 0.51 06/20/2024 Lab Results Component Value Date ALT 14 04/14/2018 AST 17 04/14/2018 Cosigned by Niraj Garcia DO at 06/20/2024 11:52 AM EST Associated attestation - Niraj Garcia DO - 06/20/2024 11:52 AM EST I personally saw and examined the patient discussed management with the NPP. I reviewed the NPP note. I performed the following evaluation, and management services personally which includes addressing problems and formulating medical decision m[age]-year-old male with PMH of cerebral palsy, nonverbal and bedbound at baseline, was [facility] too [facility] from his jail for a dislodged PEG tube. Patient had a PEG tube placed 2 days ago (06/18), and pulled it yesterday per his jail. He was seen at yesterday, and KUB with tube study showed extravasation of contrast, concerning for malpositioning of the PEG tube. Patient was discharged back to his jail with instructions to follow-up in 5 days. The jail then transferred him here due to concerns of poor nutrition. On arrival patient was febrile to 100.6,and tachycardic to the low 100. KUB concerning for free intraperitoneal air. On exam patient is nonverbal, but does not appear in any acute distress. Abdomen is soft, appears tender, nondistended. Labs remarkable for a leukocytosis of 11.17, CRP 198, and Pro-Devon 3.2 Assessment/plan: 53-year-old male with cerebral palsy, here with dislodgment of recently placed PEG tube, imaging concerning for free intraperitoneal air Will plan for exploratory laparotomy, and Amauri gastrostomy tube placement. Patient's guardian has been contacted, and informed consent was obtained. Follow-up CT prior to surgery Patient received a 2 L bolus, and is now on maintenance IV fluids Keep n.p.o. Place Ellsworth for strict I's and O's Continue Zosyn, and vancomycin Rest of management per primary, and ancillary services Niraj Garcia DO General Surgery 11:51 AM 06/20/24 documented in this [id number] NoteHMS HISTORY AND PHYSICAL -- [facility] Patient Name: Rome Castillo : 1970 MR #: [id number] Admit Date: 06/20/2024 Physicians: Cruzito Doe MD (Family); Donavan Givens MD (Referring) Rome Castillo is a 53 y.o. male patient of Cruzito Doe MD with history of cerebral palsy, who presented to [facility] on 06/20/2024 with displaced PEG. Sepsis Present on admission: yes Etiology: Uncertain SIRS criteria: Temperature greater than 100.4 or less than 96.8, Heart rate greater than 90, WBC greater than 12,000, less than 4,000, or greater than 10% bands Evidence of end organ dysfunction: none Initial lactic acid: 1 Repeat lactic acid: N/A Current antibiotic regimen: Vanc/Zosyn Culture data: Blood, urine, MRSA, COVID/Flu/Respiratory PCR panel, urine antigens Vasopressors/steroids: none Initial sepsis checklist: Lactate ordered [x] Blood cultures obtained [x] Antibiotics initiated [x] IV fluids per sepsis protocol [x] Repeat volume status and tissue perfusion assessment performed [] - N/A Coffee ground emesis PEG tube displacement NPO PPI General surgery consult Trend CBC Acute respiratory failure Difficulty with clearing secretions while in CT Being taken directly to OR with plans to probably come out to the ICU afterwards Low flow oxygen protocols. Cerebral palsy Contractures Restricted mobility Nursing to get records from facility/guardian Care management Not able to participate in therapy Haldol IV nightly until PEG replaced Seizures Valproic acid Residence prior to admission: ECF/SNF Was patient transferred from outlying hospital or ED yes -- care site [facility] Quality Measures DVT Prophylaxis: SCDs Ellsworth Catheter: absent Medication Reconciliation: Unverified Admitted with these risk variables:Chronic Fatigue/Reduced Mobility . Please see assessment and plan for further details. Estimated Date of Discharge greater than 2 midnights Code Status Full Code; unverified; reason cerebral palsy I spent 35 minutes providing critical care services independent of procedures and other care providers. My time managing this critically ill patient included review of interval history, laboratories, radiology and consultation reports; performing a physical examination; discussing patient with the care team and managing life sustaining therapies to prevent imminent clinical deterioration. Chief Complaint PEG tube displacement History of Present Illness Rome Castillo is a 53 y.o. male patient of Cruzito Doe MD with history of cerebral palsy, who presented to [facility] on 06/20/2024 with displaced PEG. Patient unable to provide history due to cerebral palsy. Per ED provider documentation: The patient presented to the emergency room with complaint he pulled his PEG tube and needs replacement, the patient has advanced cerebral palsy, he is bedbound and nonverbal, the patient is cachectic with contractures of his extremities, he had the PEG tube replaced recently at [facility] and was sent to the jail, the patient pulled the tube today, he was sent back to hospital but the surrounding wound started the PEG tube is on vacation and the hospital sent the patient back to the jail to wait 5 days without a PEG tube, the jail sent him over here for reevaluation, the patient also vomited 1 large coffee-ground emesis at the jail prior to arrival" Past Medical History Past Medical History: Diagnosis Date Cerebral palsy (HCC) Dysphagia Dysphagia, oropharyngeal phase Erythematous condition, unspecified Failure to thrive 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 No pertinent family history. Social History Social History Tobacco Use Smoking Status Never Smokeless Tobacco Never Social History Substance and Sexual Activity Alcohol Use Not Currently Social History Substance and Sexual Activity Drug Use Not Currently Allergy Information I have reviewed the patient's allergies. Patient has no known allergies. Home Medications Home medications were reviewed. Review Of Systems Unable to obtain Physical Examination BP 119/68 Pulse (!) 105 Temp (!) 100.6 degrees F (38.1 degrees C) (Axillary) Resp 17 Ht 5' 2.01" SpO2 94% BMI 23.77 kg/m General Appearance: alert; chronically ill appearing; in no acute distress HEENT: Head- normocephalic; Eyes- EOMI, sclera anicteric; Throat- mucous membranes moist Cardiovascular: regular rate and rhythm; normal S1, S2; no murmurs, rubs, clicks or gallops; peripheral edema absent Respiratory: lungs clear to auscultation; (more content not included)... [facility]11-27-2024 History and physical note* Mundo Card MD - 06/20/2024 11:42 AM EST [facility] HISTORY AND PHYSICAL -- [facility] Patient Name: Rome Castillo : 1970 MR #: [id number] Admit Date: 06/20/2024 Physicians: Cruzito Doe MD (Family); Donavan Givens MD (Referring) Rome Castillo is a 53 y.o. male patient of Cruzito Doe MD with history of cerebral palsy, who presented to [facility] on 06/20/2024 with displaced PEG. Sepsis Present on admission: yes Etiology: Uncertain SIRS criteria: Temperature greater than 100.4 or less than 96.8, Heart rate greater than 90, WBC greater than 12,000, less than 4,000, or greater than 10% bands Evidence of end organ dysfunction: none Initial lactic acid: 1 Repeat lactic acid: N/A Current antibiotic regimen: Vanc/Zosyn Culture data: Blood, urine, MRSA, COVID/Flu/Respiratory PCR panel, urine antigens Vasopressors/steroids: none Initial sepsis checklist: Lactate ordered [x] Blood cultures obtained [x] Antibiotics initiated [x] IV fluids per sepsis protocol [x] Repeat volume status and tissue perfusion assessment performed [] - N/A Coffee ground emesis PEG tube displacement NPO PPI General surgery consult Trend CBC Acute respiratory failure Difficulty with clearing secretions while in CT Being taken directly to OR with plans to probably come out to the ICU afterwards Low flow oxygen protocols. Cerebral palsy Contractures Restricted mobility Nursing to get records from facility/guardian Care management Not able to participate in therapy Haldol IV nightly until PEG replaced Seizures Valproic acid Residence prior to admission: ECF/SNF Was patient transferred from outlying hospital or ED yes -- care site [facility] Quality Measures DVT Prophylaxis: SCDs Ellsworth Catheter: absent Medication Reconciliation: Unverified Admitted with these risk variables:Chronic Fatigue/Reduced Mobility . Please see assessment and plan for further details. Estimated Date of Discharge greater than 2 midnights Code Status Full Code; unverified; reason cerebral palsy I spent 35 minutes providing critical care services independent of procedures and other care providers. My time managing this critically ill patient included review of interval history, laboratories,radiology and consultation reports; performing a physical examination; discussing patient with the care team and managing life sustaining therapies to prevent imminent clinical deterioration. Chief Complaint PEG tube displacement History of Present Illness Rome Castillo is a 53 y.o. male patient of Cruzito Doe MD with history of cerebral palsy, who presented to [facility] on 06/20/2024 with displaced PEG. Patient unable to provide history due to cerebral palsy. Per ED provider documentation: The patient presented to the emergency room with complaint he pulled his PEG tube and needs replacement, the patient has advanced cerebral palsy, he is bedbound and nonverbal, the patient is cachectic with contractures of his extremities, he had the PEG tube replaced recently at [facility] and was sent to the jail, the patient pulled the tube today, he was sent back to [facility] but the surrounding wound started the PEG tube is on vacation and the hospital sent the patient back to the jail to wait 5 days without a PEG tube, the jail sent him over here for reevaluation, the patient also vomited 1 large coffee-ground emesis at the jail prior to arrival" Past Medical History Past Medical History: Diagnosis Date Cerebral palsy (HCC) Dysphagia Dysphagia, oropharyngeal phase Erythematous condition, unspecified Failure to thrive 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 No pertinent family history. Social History Social History Tobacco Use Smoking Status Never Smokeless Tobacco Never Social History Substance and Sexual Activity Alcohol Use Not Currently Social History Substance and Sexual Activity Drug Use Not Currently Allergy Information I have reviewed the patient's allergies. Patient has no known allergies. Home Medications Home medications were reviewed. Review Of Systems Unable to obtain Physical Examination BP 119/68 Pulse (!) 105 Temp (!) 100.6 F (38.1 C) (Axillary) Resp 17 Ht 5' 2.01" SpO2 94% BMI 23.77 kg/m General Appearance: alert; chronically ill appearing; in no acute distress HEENT: Head- normocephalic; Eyes- EOMI, sclera anicteric; Throat- mucous membranes moist Cardiovascular: regular rate and rhythm; normal S1, S2; no murmurs, rubs, clicks or gallops; peripheral edema absent Respiratory: lungs clear to auscultation; without wheezes, rales or rhonchi; on room air Abdomen: soft, non-tender, non-distended Neurological: unable to assess orientation; unable to assess speech; no focal findings or movement disorder noted Musculoskeletal: contractures of arms and legs bilaterally; no tenderness to palpation Skin: normal coloration Psych: unable to assess mood and affect documented in this [id number] Hospital Discharge instructions * Discharge Instructions* Sobia Krishnan RN - 06/18/2024 9:21 AM EST Patient Instructions after an endoscopy or colonoscopy The anesthetics, sedatives or narcotics which were given to you today will be acting in your body for the next 24 hours, so you might feel a little sleepy or groggy. This feeling should slowly wear off. Carefully read and follow the instructions. You received sedation today: - Do not drive or operate any machinery or power tools of any kind. - No alcoholic beverages today, not even beer or wine. - Do not make any important decisions or sign any legal documents. - No over the counter medications that contain alcohol or that may cause drowsiness. - Do not make any important decisions or sign any legal documents. While it is common to experience mild to moderate abdominal distention, gas, or belching after yourprocedure, if any of these symptoms occur following discharge from the GI Lab or within one week ofhaving your procedure, call the [facility] to be advised whether a visit to your nearest Urgent Care or Emergency Department is indicated. Take this paper with you if you go. - If you develop an allergic reaction to the medications that were given during your procedure suchas difficulty breathing, rash, hives, severe nausea, vomiting or lightheadedness.- If you experience chest pain, shortness of breath, severe abdominal pain, fevers and chills. -If you develop signs and symptoms of bleeding such as blood in your spit, if your stools turn black, tarry, or bloody - If you have not urinated within 8 hours following your procedure.- If your IV site becomes painful, red, inflamed, or looks infected. documented in this [facility] Work Phone: [phone] [phone] Hospital Discharge instructions* Discharge Instructions* Sobia Krishnan RN - 06/18/2024 9:21 AM EST Patient Instructions after an endoscopy or colonoscopy The anesthetics, sedatives or narcotics which were given to you today will be acting in your body for the next 24 hours, so you might feel a little sleepy or groggy. This feeling should slowly wear off. Carefully read and follow the instructions. You received sedation today: - Do not drive or operate any machinery or power tools of any kind. - No alcoholic beverages today, not even beer or wine. - Do not make any important decisions or sign any legal documents. - No over the counter medications that contain alcohol or that may cause drowsiness. - Do not make any important decisions or sign any legal documents. While it is common to experience mild to moderate abdominal distention, gas, or belching after yourprocedure, if any of these symptoms occur following discharge from the GI Lab or within one week ofhaving your procedure, call the [facility] to be advised whether a visit to your nearest Urgent Care or Emergency Department is indicated. Take this paper with you if you go. - If you develop an allergic reaction to the medications that were given during your procedure suchas difficulty breathing, rash, hives, severe nausea, vomiting or lightheadedness.- If you experience chest pain, shortness of breath, severe abdominal pain, fevers and chills. -If you develop signs and symptoms of bleeding such as blood in your spit, if your stools turn black, tarry, or bloody - If you have not urinated within 8 hours following your procedure.- If your IV site becomes painful, red, inflamed, or looks infected. documented in this [facility] Work Phone: [phone] 223-154911-25-2024 History and physical note* Bakari Clarisa Stephen, - 06/18/2024 7:00 AM EST History Of Present Illness Rome Castillo is a 53 y.o. male presenting with PEG tube placement. Patient is chronic MRDD cerebral palsy who is failed alternative means of feeding. He presents for PEG tube placement for nutrition and med administration. Procedure was discussed with [facility] advisor Jennifer Orosco. The nature risk extended procedure including risk of the percutaneous PEG tube placement as well as risk of general anesthetic are discussed in detail with her. Verbal consent is obtained Past Medical History Past Medical History: Diagnosis Date Cerebral palsy Seizures (Multi) Surgical History History reviewed. No pertinent surgical history. Social History He reports that he has never smoked. He has never used smokeless tobacco. He reports that he does not drink alcohol and does not use drugs. Family History Family History Family history unknown: Yes Allergies No Known Allergies Review of Systems Pre-sedation Evaluation: ASA Classification - ASA 3 - Patient with moderate systemic disease with functional limitations Mallampati Score - II (hard and soft palate, upper portion of tonsils and uvula visible) Physical Exam Vitals and nursing note reviewed. Constitutional: Appearance: Normal appearance. HENT: Head: Normocephalic. Mouth/Throat: Mouth: Mucous membranes are moist. Pharynx: Oropharynx is clear. Eyes: Pupils: Pupils are equal, round, and reactive to light. Cardiovascular: Rate and Rhythm: Normal rate and regular rhythm. Heart sounds: Normal heart sounds. Pulmonary: Effort: Pulmonary effort is normal. Breath sounds: Normal breath sounds. Abdominal: General: Abdomen is flat. Bowel sounds are normal. Palpations: Abdomen is soft. Musculoskeletal: General: Normal range of motion. Cervical back: Normal range of motion and neck supple. Skin: General: Skin is warm and dry. Neurological: General: No focal deficit present. Mental Status: He is alert and oriented to person, place, and time. Psychiatric: Mood and Affect: Mood normal. Behavior: Behavior normal. Last Recorded Vitals Blood pressure 101/79, pulse 75, temperature 36.2 C (97.2 F), temperature source Temporal, resp. rate 12, height 1.575 m (5' 2.01"), weight 51.3 kg (113 lb), SpO2 95%. 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 30 mL 1 divalproex (Depakote) 250 mg EC tablet TAKE 1 TABLET BY MOUTH ONCE DAILY IN THE MORNING FOR SEIZURES 90 tablet 2 divalproex (Depakote) 500 mg EC tablet GIVE 1 TABLET BY MOUTH DAILY AT BEDTIME DX: SEIZURES NEW PCP90 tablet 2 lactulose 20 gram/30 mL oral solution GIVE 15 ML (10GM) BY MOUTH TWICE DAILY PRN FOR CONSTIPATION 900 mL 11 loratadine (Claritin) 10 mg tablet GIVE 1 TABLET BY MOUTH ONCE DAILY FOR ALLERGIES *OK TO CHARGE UNTIL MEDICAID ISSUE RESOLVED* 30 tablet 2 mirtazapine (Remeron) 15 mg tablet Take 1 tablet (15 mg) by mouth once daily at bedtime. polyethylene glycol (Glycolax, Miralax) 17 gram packet GIVE 1 PACK BY MOUTH ONCE DAILY *DISSOLVE IN8 OZ WATER/JUICE, SODA,COFFEE OR TEA *SEND W/CYCLE* *OK TO CHARGE* 30 packet 11 risperiDONE (RisperDAL) 1 mg tablet Take 2 tablets (2 mg) by mouth once daily. acetaminophen (Tylenol) 325 mg suppository GIVE 2 TABLETS (650MG) BY MOUTH EVERY 3 TO 4 HOURS NEEDED FOR DISCOMFORT/TEMP GREATER THAN 103 RECTALLY (Patient not taking: Reported on 06/18/2024) 100 suppository 0 bisacodyl (Fleet Bisacodyl) 10 mg/30 mL enema Insert 30 mL (10 mg) into the rectum 1 time. (Patientnot taking: Reported on 06/18/2024) IBU-200 200 mg tablet GIVE 2 TABLETS (400MG) BY MOUTH EVERY 6 HOURS NEEDED FOR FEVER *CALL PHARMACY FOR REFILLS* (Patient not taking: Reported on 06/18/2024) 30 tablet 0 nystatin (Mycostatin) cream Apply topically 2 times a day for 7 days. apply to affected area (Patient not taking: Reported on 06/18/2024) 30 g 0 Current Facility-Administered Medications Medication Dose Route Frequency Provider Last Rate Last Admin famotidine PF (Pepcid) injection 20 mg 20 mg intravenous Once Cruzito Sultana DO lactated Ringer's infusion 20 mL/hr intravenous Continuous Cruzito Sultana DO 20 mL/hr at 06/18/24 0657 20 mL/hr at 06/18/24 0657 midazolam (Versed) injection 1 mg 1 mg intravenous Once Cruzito Sultana, DO ondansetron (Zofran) injection 4 mg 4 mg intravenous Once Cruzito Sultana DO Facility-Administered Medications Ordered in Other Encounters Medication Dose Route Frequency Provider Last Rate Last Admin ketamine (Ketalar) injection Continuous PRN Abdullahi Arce MD propofol (Diprivan) injection Continuous PRN MD Bakari Nava DO [facility] Work Phone: [phone] History and physical note* Bakari Mitchell DO - 06/18/2024 7:00 AM EST History Of Present Illness Rome Castillo is a 53 y.o. male presenting with PEG tube placement. Patient is chronic MRDD cerebral palsy who is failed alternative means of feeding. He presents for PEG tube placement for nutrition and med administration. Procedure was discussed with [facility] advisor Jennifer Orosco. The nature risk extended procedure including risk of the percutaneous PEG tube placement as well as risk of general anesthetic are discussed in detail with her. Verbal consent is obtained Past Medical History Past Medical History: Diagnosis Date Cerebral palsy Seizures (Multi) Surgical History History reviewed. No pertinent surgical history. Social History He reports that he has never smoked. He has never used smokeless tobacco. He reports that he does not drink alcohol and does not use drugs. Family History Family History Family history unknown: Yes Allergies No Known Allergies Review of Systems Pre-sedation Evaluation: ASA Classification - ASA 3 - Patient with moderate systemic disease with functional limitations Mallampati Score - II (hard and soft palate, upper portion of tonsils and uvula visible) Physical Exam Vitals and nursing note reviewed. Constitutional: Appearance: Normal appearance. HENT: Head: Normocephalic. Mouth/Throat: Mouth: Mucous membranes are moist. Pharynx: Oropharynx is clear. Eyes: Pupils: Pupils are equal, round, and reactive to light. Cardiovascular: Rate and Rhythm: Normal rate and regular rhythm. Heart sounds: Normal heart sounds. Pulmonary: Effort: Pulmonary effort is normal. Breath sounds: Normal breath sounds. Abdominal: General: Abdomen is flat. Bowel sounds are normal. Palpations: Abdomen is soft. Musculoskeletal: General: Normal range of motion. Cervical back: Normal range of motion and neck supple. Skin: General: Skin is warm and dry. Neurological: General: No focal deficit present. Mental Status: He is alert and oriented to person, place, and time. Psychiatric: Mood and Affect: Mood normal. Behavior: Behavior normal. Last Recorded Vitals Blood pressure 101/79, pulse 75, temperature 36.2 C (97.2 F), temperature source Temporal, resp. rate 12, height 1.575 m (5' 2.01"), weight 51.3 kg (113 lb), SpO2 95%. 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 30 mL 1 divalproex (Depakote) 250 mg EC tablet TAKE 1 TABLET BY MOUTH ONCE DAILY IN THE MORNING FOR SEIZURES 90 tablet 2 divalproex (Depakote) 500 mg EC tablet GIVE 1 TABLET BY MOUTH DAILY AT BEDTIME DX: SEIZURES NEW PCP90 tablet 2 lactulose 20 gram/30 mL oral solution GIVE 15 ML (10GM) BY MOUTH TWICE DAILY PRN FOR CONSTIPATION 900 mL 11 loratadine (Claritin) 10 mg tablet GIVE 1 TABLET BY MOUTH ONCE DAILY FOR ALLERGIES *OK TO CHARGE UNTIL MEDICAID ISSUE RESOLVED* 30 tablet 2 mirtazapine (Remeron) 15 mg tablet Take 1 tablet (15 mg) by mouth once daily at bedtime. polyethylene glycol (Glycolax, Miralax) 17 gram packet GIVE 1 PACK BY MOUTH ONCE DAILY *DISSOLVE IN8 OZ WATER/JUICE, SODA,COFFEE OR TEA *SEND W/CYCLE* *OK TO CHARGE* 30 packet 11 risperiDONE (RisperDAL) 1 mg tablet Take 2 tablets (2 mg) by mouth once daily. acetaminophen (Tylenol) 325 mg suppository GIVE 2 TABLETS (650MG) BY MOUTH EVERY 3 TO 4 HOURS NEEDED FOR DISCOMFORT/TEMP GREATER THAN 103 RECTALLY (Patient not taking: Reported on 06/18/2024) 100 suppository 0 bisacodyl (Fleet Bisacodyl) 10 mg/30 mL enema Insert 30 mL (10 mg) into the rectum 1 time. (Patientnot taking: Reported on 06/18/2024) IBU-200 200 mg tablet GIVE 2 TABLETS (400MG) BY MOUTH EVERY 6 HOURS NEEDED FOR FEVER *CALL PHARMACY FOR REFILLS* (Patient not taking: Reported on 06/18/2024) 30 tablet 0 nystatin (Mycostatin) cream Apply topically 2 times a day for 7 days. apply to affected area (Patient not taking: Reported on 06/18/2024) 30 g 0 Current Facility-Administered Medications Medication Dose Route Frequency Provider Last Rate Last Admin famotidine PF (Pepcid) injection 20 mg 20 mg intravenous Once Cruzito Sultana, lactated Ringer's infusion 20 mL/hr intravenous Continuous Cruzito Sultana DO 20 mL/hr at 11/25/24 0657 20 mL/hr at 06/18/24 0657 midazolam (Versed) injection 1 mg 1 mg intravenous Once Cruzito Sultana DO ondansetron (Zofran) injection 4 mg 4 mg intravenous Once Cruzito Sultana DO Facility-Administered Medications Ordered in Other Encounters Medication Dose Route Frequency Provider Last Rate Last Admin ketamine (Ketalar) injection Continuous PRN Abdullahi Arce MD propofol (Diprivan) injection Continuous PRN MD Bakari Nava DO [facility]: [phone] History and physical note* Bakari Mitchell DO - 06/18/2024 7:00 AM EST History Of Present Illness Rome Castillo is a 53 y.o. male presenting with PEG tube placement. Patient is chronic MRDD cerebral palsy who is failed alternative means of feeding. He presents for PEG tube placement for nutrition and med administration. Procedure was discussed with [facility] advisor Jennifer Orosco. The nature risk extended procedure including risk of the percutaneous PEG tube placement as well as risk of general anesthetic are discussed in detail with her. Verbal consent is obtained Past Medical History Past Medical History: Diagnosis Date Cerebral palsy Seizures (Multi) Surgical History History reviewed. No pertinent surgical history. Social History He reports that he has never smoked. He has never used smokeless tobacco. He reports that he does not drink alcohol and does not use drugs. Family History Family History Family history unknown: Yes Allergies No Known Allergies Review of Systems Pre-sedation Evaluation: ASA Classification - ASA 3 - Patient with moderate systemic disease with functional limitations Mallampati Score - II (hard and soft palate, upper portion of tonsils and uvula visible) Physical Exam Vitals and nursing note reviewed. Constitutional: Appearance: Normal appearance. HENT: Head: Normocephalic. Mouth/Throat: Mouth: Mucous membranes are moist. Pharynx: Oropharynx is clear. Eyes: Pupils: Pupils are equal, round, and reactive to light. Cardiovascular: Rate and Rhythm: Normal rate and regular rhythm. Heart sounds: Normal heart sounds. Pulmonary: Effort: Pulmonary effort is normal. Breath sounds: Normal breath sounds. Abdominal: General: Abdomen is flat. Bowel sounds are normal. Palpations: Abdomen is soft. Musculoskeletal: General: Normal range of motion. Cervical back: Normal range of motion and neck supple. Skin: General: Skin is warm and dry. Neurological: General: No focal deficit present. Mental Status: He is alert and oriented to person, place, and time. Psychiatric: Mood and Affect: Mood normal. Behavior: Behavior normal. Last Recorded Vitals Blood pressure 101/79, pulse 75, temperature 36.2 C (97.2 F), temperature source Temporal, resp. rate 12, height 1.575 m (5' 2.01"), weight 51.3 kg (113 lb), SpO2 95%. 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 30 mL 1 divalproex (Depakote) 250 mg EC tablet TAKE 1 TABLET BY MOUTH ONCE DAILY IN THE MORNING FOR SEIZURES 90 tablet 2 divalproex (Depakote) 500 mg EC tablet GIVE 1 TABLET BY MOUTH DAILY AT BEDTIME DX: SEIZURES NEW PCP90 tablet 2 lactulose 20 gram/30 mL oral solution GIVE 15 ML (10GM) BY MOUTH TWICE DAILY PRN FOR CONSTIPATION 900 mL 11 loratadine (Claritin) 10 mg tablet GIVE 1 TABLET BY MOUTH ONCE DAILY FOR ALLERGIES *OK TO CHARGE UNTIL MEDICAID ISSUE RESOLVED* 30 tablet 2 mirtazapine (Remeron) 15 mg tablet Take 1 tablet (15 mg) by mouth once daily at bedtime. polyethylene glycol (Glycolax, Miralax) 17 gram packet GIVE 1 PACK BY MOUTH ONCE DAILY *DISSOLVE IN8 OZ WATER/JUICE, SODA,COFFEE OR TEA *SEND W/CYCLE* *OK TO CHARGE* 30 packet 11 risperiDONE (RisperDAL) 1 mg tablet Take 2 tablets (2 mg) by mouth once daily. acetaminophen (Tylenol) 325 mg suppository GIVE 2 TABLETS (650MG) BY MOUTH EVERY 3 TO 4 HOURS NEEDED FOR DISCOMFORT/TEMP GREATER THAN 103 RECTALLY (Patient not taking: Reported on 06/18/2024) 100 suppository 0 bisacodyl (Fleet Bisacodyl) 10 mg/30 mL enema Insert 30 mL (10 mg) into the rectum 1 time. (Patientnot taking: Reported on 06/18/2024) IBU-200 200 mg tablet GIVE 2 TABLETS (400MG) BY MOUTH EVERY 6 HOURS NEEDED FOR FEVER *CALL PHARMACY FOR REFILLS* (Patient not taking: Reported on 06/18/2024) 30 tablet 0 nystatin (Mycostatin) cream Apply topically 2 times a day for 7 days. apply to affected area (Patient not taking: Reported on 06/18/2024) 30 g 0 Current Facility-Administered Medications Medication Dose Route Frequency Provider Last Rate Last Admin famotidine PF (Pepcid) injection 20 mg 20 mg intravenous Once Cruzito Sultana DO lactated Ringer's infusion 20 mL/hr intravenous Continuous Cruzito Sultana DO 20 mL/hr at 06/18/24 0657 20 mL/hr at 06/18/24 0657 midazolam (Versed) injection 1 mg 1 mg intravenous Once Cruzito Sultana DO ondansetron (Zofran) injection 4 mg 4 mg intravenous Once Cruzito Sultana DO Facility-Administered Medications Ordered in Other Encounters Medication Dose Route Frequency Provider Last Rate Last Admin ketamine (Ketalar) injection Continuous PRN Abdullahi Arce MD propofol (Diprivan) injection Continuous PRN MD Bakari Nava DO [facility] Phone: [phone] Procedure note* Melvin Tovar DO - 06/18/2024 7:00 AM EST PEG tube placement Reason: Need for nutritional therapy Time out: Performed in the operating room with the OR team Consent: Obtained by Dr. Mitchell. Procedure: Please see anesthesia report by Dr. Sultana Please see endoscopy report by Dr. Mitchell The abdomen was cleaned thoroughly with chlorhexidine and draped in clean fashion When the endoscope was in the abdomen we were able to see a light reflex Lidocaine was used anesthetize the area A large bore needle was then inserted into the stomach under direct visualization A wire was floated easily and snared after the needle was removed The wire was then pulled up and out through the mouth The PEG tube was then pulled back down and out through the abdominal wall after a small meenu was made in the skin Catheter was secured in place and endoscopy once again visualized it to be in good position No blood loss No complications noted Feeding tube can now be used for enteral needs [facility] Work Phone: [phone] Procedure note* Melvin Tovar DO - 06/18/2024 7:00 AM EST PEG tube placement Reason: Need for nutritional therapy Time out: Performed in the operating room with the OR team Consent: Obtained by Dr. Mitchell. Procedure: Please see anesthesia report by Dr. Sultana Please see endoscopy report by Dr. Mitchell The abdomen was cleaned thoroughly with chlorhexidine and draped in clean fashion When the endoscope was in the abdomen we were able to see a light reflex Lidocaine was used anesthetize the area A large bore needle was then inserted into the stomach under direct visualization A wire was floated easily and snared after the needle was removed The wire was then pulled up and out through the mouth The PEG tube was then pulled back down and out through the abdominal wall after a small meenu was made in the skin Catheter was secured in place and endoscopy once again visualized it to be in good position No blood loss No complications noted Feeding tube can now be used for enteral needs documented in this [facility] Work Phone: [phone] Procedure note* Melvin Tovar DO - 06/18/2024 7:00 AM EST PEG tube placement Reason: Need for nutritional therapy Time out: Performed in the operating room with the OR team Consent: Obtained by Dr. Mitchell. Procedure: Please see anesthesia report by Dr. Sultana Please see endoscopy report by Dr. Mitchell The abdomen was cleaned thoroughly with chlorhexidine and draped in clean fashion When the endoscope was in the abdomen we were able to see a light reflex Lidocaine was used anesthetize the area A large bore needle was then inserted into the stomach under direct visualization A wire was floated easily and snared after the needle was removed The wire was then pulled up and out through the mouth The PEG tube was then pulled back down and out through the abdominal wall after a small meenu was made in the skin Catheter was secured in place and endoscopy once again visualized it to be in good position No blood loss No complications noted Feeding tube can now be used for enteral needs documented in this [facility] Work Phone: [phone]) 978-922411-25-2024 History of Present illness Narrative* Aida Goel - 06/18/2024 12:00 AM EST [facility] NOTE NAME: ROME CASTILLO [facility] NO.: [id number] DATE OF SERVICE: 06/18/2024 ATTENDING PHYSICIAN: Aida Goel MD [facility] HISTORY AND PHYSICAL: HISTORY OF PRESENT ILLNESS: The patient is a 53-year-old male who is admitted to us directly from the hospital after undergoing outpatient placement gastrostomy feeding tube for dysphagia. He has a diagnosis of cerebral palsy with spastic quadriplegia and seizure disorder. No other information is available to me at this time. He apparently resides in a halfway. He is here until his PEG tube site heals and he is able to tolerate his tube feedings, at which time he is apparently is to return back to his halfway. REVIEW OF SYSTEMS: He is currently sitting in his reclining wheelchair. He has his eyes open, is looking around, but is nonverbal. He is unable to provide any information whatsoever. Nursing reports no shortness of breath, chest pain, abdominal pain, nausea, vomiting, or any bleeding. He apparentlyhas not started his tube feedings yet. I do not have any other further information at this time. SOCIAL/FUNCTIONAL SYSTEMS The patient does not smoke or abuse alcohol. EXAMINATION: He is currently afebrile, vital signs stable. He is in no distress. He appears chronically ill. HEENT: Extraocular movements appear to be intact, sclerae nonicteric. Ears intact. Lungs: Clear. Heart: Regular. Abdomen: Soft, nontender. Gastrostomy feeding tube present. He does have an abdominal binder. Extremities: No edema. 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 IMPRESSION: 1. Cerebral palsy with spastic quadriplegia and dysphagia-once again, he is status postplacement of gastrostomy feeding tube. We will await further instructions regarding his tube feedings. 2. Seizure disorder-monitor for any seizure activity. 3. Once again, I do not have a list of his medications at this time. We will review that once they are available. Once again, he is here for short term, after which he is to return back to his halfway. We will obtain admission baseline labs including CBC and BMP as indicated. DICTATED BY: MD ASHWINI English/ELAINE JOB# [id number] [facility] NoteHNO ID: [id number] Author: AIDA GOEL, ? Service: ? Author Type: Physician Type: Progress Notes Filed: 06/19/2024 16:18 Note Text: [facility] NOTE NAME: ROME CASTILLO [facility] NO.: [id number] DATE OF SERVICE: 06/18/2024 ATTENDING PHYSICIAN: Aida Goel MD [facility] HISTORY AND PHYSICAL: HISTORY OF PRESENT ILLNESS: The patient is a 53-year-old male who is admitted to us directly from the hospital after undergoing outpatient placement gastrostomy feeding tube for dysphagia. He has a diagnosis of cerebral palsy with spastic quadriplegia and seizure disorder. No other information is available to me at this time. He apparently resides in a halfway. He is here until his PEG tube site heals and he is able to tolerate his tube feedings, at which time he is apparently is to return back to his halfway. REVIEW OF SYSTEMS: He is currently sitting in his reclining wheelchair. He has his eyes open, is looking around, but is nonverbal. He is unable to provide any information whatsoever. Nursing reports no shortness of breath, chest pain, abdominal pain, nausea, vomiting, or any bleeding. He apparently has not started his tube feedings yet. I do not have any other further information at this time. SOCIAL/FUNCTIONAL SYSTEMS The patient does not smoke or abuse alcohol. EXAMINATION: He is currently afebrile, vital signs stable. He is in no distress. He appears chronically ill. HEENT: Extraocular movements appear to be intact, sclerae nonicteric. Ears intact. Lungs: Clear. Heart: Regular. Abdomen: Soft, nontender. Gastrostomy feeding tube present. He does have an abdominal binder. Extremities: No edema. 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 IMPRESSION: 1. Cerebral palsy with spastic quadriplegia and dysphagia-once again, he is status post placement of gastrostomy feeding tube. We will await further instructions regarding his tube feedings. 2. Seizure disorder-monitor for any seizure activity. 3. Once again, I do not have a list of his medications at this time. We will review that once they are available. Once again, he is here for short term, after which he is to return back to his halfway. We will obtain admission baseline labs including CBC and BMP as indicated. DICTATED BY: MD ASHWINI English/AQT JOB# [id number] [facility]11-20-2024 History of Present illness Narrative* May Haines, - 06/13/2024 2:20 PM EST Subjective Patient ID: Rome Castillo is a 53 y.o. male who presents for Rash (Red bumps on his bottom/Present for about a month/Deborah said she will get it looking better but the patient will have a BM and it will flare up again/They were also concerned because the changed the type of underwear he wears as well/She does apply topicals to help with healing along with bathing twice a week to help clear up the rash). Rash Patient is here today for Rash on buttocks. Here today with halfway staff. Pt has a rash on his buttocks for the last month or so. As soon as they get it gone it will come back. Has tried A&D, baking soda baths, cortisone. They have changed briefs as what they were previodly buying is unavailable but they have not changed soaps lotions or detergents otherwise. Do not think it is painful or itchy for him. He coughs when he drinks the lactulose. Does have loose stools. Review of Systems Skin: Positive for rash. Objective BP 136/85 Pulse 71 Ht 1.575 m (5' 2") Wt 51.3 kg (113 lb) BMI 20.67 kg/m Physical Exam Constitutional: General: He is not in acute distress, in wheelchair HENT: Head: Normocephalic. Nose: Nose normal. Mouth/Throat: Mouth: Mucous membranes are moist. Pharynx: No oropharyngeal exudate. Eyes: General: Right eye: No discharge. Left eye: No discharge. Extraocular Movements: Extraocular movements intact. Pupils: Pupils are equal, round, and reactive to light. Cardiovascular: Rate and Rhythm: Normal rate and regular rhythm. Heart sounds: No murmur heard. No gallop. Pulmonary: Effort: Pulmonary effort is normal. Rales bilateral lower lobes with upper airway wheezing Breath sounds: Normal breath sounds. No wheezing. Musculoskeletal: General: No swelling. Skin: General: red erythematous rash extending in gluteal cleft outward, not on scrotum Coloration: Skin is not jaundiced. Neurological: Mental Status: He is alert. Non verbal Cranial Nerves: No cranial nerve deficit. Comments: Atrophy of mare lower leg muscles, contractures of mare hands Assessment/Plan Problem List Items Addressed This Visit None Visit Diagnoses Rash - Primary Relevant Medications clotrimazole-betamethasone (Lotrisone) lotion nystatin (Mycostatin) cream Contact dermatitis vs rash - will try clotrimazole -betamethasone apply bid x 14 days -can try nystatin if not improving - maybe from changing briefs Ok to change lactulose to prn rather then scheduled as see if decreasing loose stools helps. Final diagnoses: [R21] Rash documented in this [facility] Work Phone: 1(452) 828-227309-30-2024 History of Present illness Narrative* May Haines, DO - 04/23/2024 1:20 PM EDT Subjective Patient ID: Rome Castillo is a 53 y.o. male who presents for Annual Exam (assisted physical ). HPI Patient is here today for annual exam. Pt did have repeat barium swallow and would not cooperate, difficult to assess whether he really has a swallowing issue vs just does not want to eat. Peg tube may be only choice in the interest of having another way to feed him and to prevent further weight loss. Review of Systems Constitutional: Negative for activity change and appetite change. Respiratory: Negative for cough, shortness of breath and wheezing. Neurological: Negative for weakness and numbness. Objective BP 117/74 Pulse 89 Ht 1.575 m (5' 2") Wt 51.3 kg (113 lb) BMI 20.67 kg/m Physical Exam Constitutional: General: He is not in acute distress. HENT: Head: Normocephalic. Nose: Nose normal. Mouth/Throat: Mouth: Mucous membranes are moist. Pharynx: No oropharyngeal exudate. Eyes: General: Right eye: No discharge. Left eye: No discharge. Extraocular Movements: Extraocular movements intact. Pupils: Pupils are equal, round, and reactive to light. Cardiovascular: Rate and Rhythm: Normal rate and regular rhythm. Heart sounds: No murmur heard. No gallop. Pulmonary: Effort: Pulmonary effort is normal. Rales bilateral lower lobes with upper airway wheezing Breath sounds: Normal breath sounds. No wheezing. Musculoskeletal: General: No swelling. Skin: General: Skin is warm and dry. Coloration: Skin is not jaundiced. Neurological: Mental Status: He is alert. Non verbal Cranial Nerves: No cranial nerve deficit. Comments: Atrophy of mare lower leg muscles, no contractures Assessment/Plan Problem List Items Addressed This Visit Cerebral palsy (Multi) - Primary Seizure disorder (Multi) Dysphagia, oropharyngeal phase Dysphagia - swallow eval 02/13 showed mod to severe esophageal dysphagia - on pureed diet - did not cooperate with swallow eval so considered failed -will be scheduled for peg tube , will likely need band to keep him from pulling it. - difficult to do speech therapy because he cannot really follow verbal commands - would like them to try to do oral feedings first then do Peg tube feedings if does not want to eat or seems to be having trouble since unable to get a good assessment on if he has a swallowing dysfunction and he would not cooperate in a meaningful way with PT Final diagnoses: [G80.0] Spastic quadriplegic cerebral palsy (Multi) [G40.909] Seizure disorder (Multi) [R13.12] Dysphagia, oropharyngeal phase documented in this [facility] Work Phone: 1(352) 313-707409-06-2024 Procedure note* Mitzy Araiza CCC-SHRIMP HEADER - 03/30/2024 8:30 AM EDT Speech-Language Pathology Adult Outpatient Modified Barium Swallow Study Patient Name: Rome Castillo : 1970 Today's Date: 03/30/24 Time Calculation Start Time: 834 Stop Time: 904 Total Time (min): 30 min Modified Barium Swallow Study completed. Informed verbal consent obtained prior to completion of exam. Trials of thin, nectar/mildly thick liquid, honey/moderately thick liquid, and puree were given. SHRIMP HEADER: Mitzy Araiza CCC-SHRIMP HEADER Contact info: [employer] Reason for Referral: Patient was referred by GI to assess swallow function and possible need for PEG tube placement following pulmonary aspiration. Per caregiver, patient is demonstrating increased coughing with all meals. He is exhibited more difficulty with solids than liquids and has lost a significant amount of weight over the last year. Additionally, he has had 2 instances of gagging and emesis related to these coughing episodes. 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, seizures, weight loss, intellectual disabilities, high myopia, multiple deficits of retina Respiratory Status: Room air Current diet: Pureed (IDDSI level 4) and Mildly thickened liquids (nectar) (IDDSI level 2) Pain: Pain Scale: PAINAD Breathin - Normal Negative Vocalizations: 0 - None Facial Expression: 0 - Smiling or inexpressive Body Language: 1 - Tense, distressed pacing/fidgeting Consolability: 1 - Distracted or reassured by voice/touch PAINAD Score: 2 (Ranges are based on the standard 0-10 scale of pain, with 0 meaning "no pain" and 10 meaning "severe pain") Fall Risk: High fall risk - wheelchair bound FINAL SPEECH RECOMMENDATIONS DIET Solids: Pureed (IDDSI level 4) Liquids: Moderately thickened liquids (honey) (IDDSI level 3) Based on the results of the MBSS, the above diet is recommended with the implementation of the following safe swallow strategies: STRATEGIES: - Small bites - Small, single sips - Alternate consistencies - Upright for all PO intake - Swallow 2-3 times per bite/sip - Liquids from spoon only - Limit distractions - Slow rate Plan: SHRIMP HEADER Plan: No treatment needs identified at this time - patient unable to participate in dysphagia treatment/exercises d/t cognitive deficits - diet tolerance monitoring to continue to be conducted bygroup home staff as appropriate Discussed POC: Caregiver Discussed Risks/Benefits: Yes Patient/Caregiver Agreeable: Yes Education Provided: Results and recommendations per MBSS. Verbal understanding and agreement given. Mechanics of the Swallow Summary: ORAL PHASE: Lip Closure - Escape progressing to mid-chin Tongue Control During Bolus Hold - Posterior escape of greater than half of the bolus Bolus prep/mastication - Mastication not assessed Bolus transport/lingual motion - Repetitive/disorganized tongue motion (tongue pumping) Oral residue - Residue collection on oral structure PHARYNGEAL PHASE: Initiation of pharyngeal swallow - Collection of bolus at the level of the pyriform sinus Soft palate elevation - Escape to nasopharynx Laryngeal elevation - Complete superior movement of thyroid cartilage with contact of arytenoids toepiglottic petiole Anterior hyoid excursion - Complete anterior movement Epiglottic movement - Partial inversion Laryngeal vestibule closure - Incomplete - narrow column of air/contrast in laryngeal vestibule Pharyngeal stripping wave - Present, however, diminished Pharyngeal contraction (A/P view) - Not tested Pharyngoesophageal segment opening - Minimal distension/incomplete duration with marked obstructionof flow of bolus Tongue base retraction - Wide column of contrast or air between tongue base and pharyngeal wall Pharyngeal residue - Majority of contrast within or on the pharyngeal structures ESOPHAGEAL PHASE: Esophageal clearance - Esophageal retention SHRIMP HEADER Impressions with Severity Rating: Pt presents with moderate to severe oropharyngeal dysphagia upon completion of modified barium swallow study this date. Swallowing physiology is detailed above. Impairments most impacting swallowing safety and efficiency include poor PES clearance and pharyngeal residue leading to post swallow penetration and aspiration and cognitive deficits leading to oralholding and decreased oral phase initiation. Patient demonstrated refusals to engage in trials of solids - holding bolus in oral cavity, refusing to swallow or spit. Patient demonstrated moderate to severe oral and pharyngeal residue that was reduced with numerous swallows. Visualization throughout the study was fair to poor d/t patient's physical and cognitive limitations. Some views of study were impaired or obstructed. Strategies attempted: -Multiple swallows -Decreasing bolus size OUTCOME MEASURES: Functional Oral Intake Scale Functional Oral Intake Scale: Level 3 - tube dependent with consistent oral intake of food and liquid The patient may benefit from supplemental nutrition via feeding tube d/t continued weight loss and pulmonary compromise. It is recommended that patient continue with oral intake in addition to feeding to to decrease continued atrophy of muscles. Eating Assessment Tool (EAT-10) 0 = No problem, 1 = Mild problem, 2 = Mild to moderate problem, 3 = Moderate problem, 4 = Severe problem *Scores based off information obtained from caregiver interview EAT 10 My swallowing problem has caused me to lose weight.: 4 My swallowing problem interferes with my ability to go out for meals.: 0 Swallowing liquids takes extra effort.: 2 Swallowing solids takes extra effort.: 4 Swallowing pills takes extra effort.: 0 Swallowing is painful: 0 The pleasure of eating is affected by my swallowing.: 0 When I swallow food sticks in my throat.: 0 I cough when I eat.: 4 Swallowing is stressful: 0 EAT-10 TOTAL SCORE:: 14 A total score of 3 or above may indicate difficulty with swallowing safely and/or efficiently Rosenbek's Penetration Aspiration Scale Thin Liquids: Unable to visualize d/t positioning and oral holding L[place]imore Thick Liquids: 8. SILENT ASPIRATION - contrast passes glottis, visible residue, NO pt response] After the Swallow Honey Thick Liquids: 3. PENETRATION with LOW ASPIRATION risk - contrast remains above vocal cords, visible residue] After the Swallow Puree: Oral holding of bolus - refused to swallow given max verbal cues [facility] Work Phone: [phone]) 854-792809-06-2024 Procedure note* JEANINE MoralesSHRIMP HEADER - 03/30/2024 8:30 AM EDT Speech-Language Pathology Adult Outpatient Modified Barium Swallow Study Patient Name: Rome Castillo : 1970 Today's Date: 03/30/24 Time Calculation Start Time: 834 Stop Time: 904 Total Time (min): 30 min Modified Barium Swallow Study completed. Informed verbal consent obtained prior to completion of exam. Trials of thin, nectar/mildly thick liquid, honey/moderately thick liquid, and puree were given. SHRIMP HEADER: Mitzy Araiza [facility]SHRIMP HEADER Contact info: [employer] Reason for Referral: Patient was referred by GI to assess swallow function and possible need for PEG tube placement following pulmonary aspiration. Per caregiver, patient is demonstrating increased coughing with all meals. He is exhibited more difficulty with solids than liquids and has lost a significant amount of weight over the last year. Additionally, he has had 2 instances of gagging and emesis related to these coughing episodes. 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, seizures, weight loss, intellectual disabilities, high myopia, multiple deficits of retina Respiratory Status: Room air Current diet: Pureed (IDDSI level 4) and Mildly thickened liquids (nectar) (IDDSI level 2) Pain: Pain Scale: PAINAD Breathin - Normal Negative Vocalizations: 0 - None Facial Expression: 0 - Smiling or inexpressive Body Language: 1 - Tense, distressed pacing/fidgeting Consolability: 1 - Distracted or reassured by voice/touch PAINAD Score: 2 (Ranges are based on the standard 0-10 scale of pain, with 0 meaning "no pain" and 10 meaning "severe pain") Fall Risk: High fall risk - wheelchair bound FINAL SPEECH RECOMMENDATIONS DIET Solids: Pureed (IDDSI level 4) Liquids: Moderately thickened liquids (honey) (IDDSI level 3) Based on the results of the MBSS, the above diet is recommended with the implementation of the following safe swallow strategies: STRATEGIES: - Small bites - Small, single sips - Alternate consistencies - Upright for all PO intake - Swallow 2-3 times per bite/sip - Liquids from spoon only - Limit distractions - Slow rate Plan: SHRIMP HEADER Plan: No treatment needs identified at this time - patient unable to participate in dysphagia treatment/exercises d/t cognitive deficits - diet tolerance monitoring to continue to be conducted bygroup home staff as appropriate Discussed POC: Caregiver Discussed Risks/Benefits: Yes Patient/Caregiver Agreeable: Yes Education Provided: Results and recommendations per MBSS. Verbal understanding and agreement given. Mechanics of the Swallow Summary: ORAL PHASE: Lip Closure - Escape progressing to mid-chin Tongue Control During Bolus Hold - Posterior escape of greater than half of the bolus Bolus prep/mastication - Mastication not assessed Bolus transport/lingual motion - Repetitive/disorganized tongue motion (tongue pumping) Oral residue - Residue collection on oral structure PHARYNGEAL PHASE: Initiation of pharyngeal swallow - Collection of bolus at the level of the pyriform sinus Soft palate elevation - Escape to nasopharynx Laryngeal elevation - Complete superior movement of thyroid cartilage with contact of arytenoids toepiglottic petiole Anterior hyoid excursion - Complete anterior movement Epiglottic movement - Partial inversion Laryngeal vestibule closure - Incomplete - narrow column of air/contrast in laryngeal vestibule Pharyngeal stripping wave - Present, however, diminished Pharyngeal contraction (A/P view) - Not tested Pharyngoesophageal segment opening - Minimal distension/incomplete duration with marked obstructionof flow of bolus Tongue base retraction - Wide column of contrast or air between tongue base and pharyngeal wall Pharyngeal residue - Majority of contrast within or on the pharyngeal structures ESOPHAGEAL PHASE: Esophageal clearance - Esophageal retention SHRIMP HEADER Impressions with Severity Rating: Pt presents with moderate to severe oropharyngeal dysphagia upon completion of modified barium swallow study this date. Swallowing physiology is detailed above. Impairments most impacting swallowing safety and efficiency include poor PES clearance and pharyngeal residue leading to post swallow penetration and aspiration and cognitive deficits leading to oralholding and decreased oral phase initiation. Patient demonstrated refusals to engage in trials of solids - holding bolus in oral cavity, refusing to swallow or spit. Patient demonstrated moderate to severe oral and pharyngeal residue that was reduced with numerous swallows. Visualization throughout the study was fair to poor d/t patient's physical and cognitive limitations. Some views of study were impaired or obstructed. Strategies attempted: -Multiple swallows -Decreasing bolus size OUTCOME MEASURES: Functional Oral Intake Scale Functional Oral Intake Scale: Level 3 - tube dependent with consistent oral intake of food and liquid The patient may benefit from supplemental nutrition via feeding tube d/t continued weight loss and pulmonary compromise. It is recommended that patient continue with oral intake in addition to feeding to to decrease continued atrophy of muscles. Eating Assessment Tool (EAT-10) 0 = No problem, 1 = Mild problem, 2 = Mild to moderate problem, 3 = Moderate problem, 4 = Severe problem *Scores based off information obtained from caregiver interview EAT 10 My swallowing problem has caused me to lose weight.: 4 My swallowing problem interferes with my ability to go out for meals.: 0 Swallowing liquids takes extra effort.: 2 Swallowing solids takes extra effort.: 4 Swallowing pills takes extra effort.: 0 Swallowing is painful: 0 The pleasure of eating is affected by my swallowing.: 0 When I swallow food sticks in my throat.: 0 I cough when I eat.: 4 Swallowing is stressful: 0 EAT-10 TOTAL SCORE:: 14 A total score of 3 or above may indicate difficulty with swallowing safely and/or efficiently Rosenbek's Penetration Aspiration Scale Thin Liquids: Unable to visualize d/t positioning and oral holding [place] Thick Liquids: 8. SILENT ASPIRATION - contrast passes glottis, visible residue, NO pt response] After the Swallow Honey Thick Liquids: 3. PENETRATION with LOW ASPIRATION risk - contrast remains above vocal cords, visible residue] After the Swallow Puree: Oral holding of bolus - refused to swallow given max verbal cues documented in this [facility] Work Phone: 1(130) 441-104908-12-2024 History and physical note* Bakari Mitchell DO - 03/05/2024 1:50 PM EDT History Of Present Illness Rome Castillo is a 53 y.o. male presenting with with. Spastic cerebral palsy and history of seizure disorder presents with dysphagia for outpatient endoscopy. After interviewing the staff who caresfor Rome at the halfway he is at some weight loss related to his eating disorder. He is underwent a speech and language evaluation back in January 2023 which showed penetration of thin liquids into his airway they admit now that he is coughing with every meal despite thickened liquids although he is able to take his pills without difficulty. He did have some weight loss which they doubled his feeding concentration which seem to improve his weight and he is now back at his baseline. He is having no vomiting of undigested food and there is no sign of any esophageal problem. This appears to be entirely pharyngeal. After examining Rome and talking to the staff I feel would be better served to have him undergo speech and language evaluation and then if aspiration and high risk of aspiration PEG tube may be the next alternative.. Past Medical History Past Medical History: Diagnosis Date Seizures (Multi) Surgical History No past surgical history on file. Social History He reports that he has never smoked. He has never used smokeless tobacco. He reports that he does not drink alcohol and does not use drugs. Family History Family History Family history unknown: Yes Allergies No Known Allergies Review of Systems Pre-sedation Evaluation: ASA Classification - ASA 3 - Patient with moderate systemic disease with functional limitations Mallampati Score - II (hard and soft palate, upper portion of tonsils and uvula visible) Physical Exam Vitals and nursing note reviewed. Constitutional: Comments: Physical appearance of cerebral palsy with high palatal arch. Noncommunicative HENT: Head: Atraumatic. Mouth/Throat: Mouth: Mucous membranes are moist. Pharynx: Oropharynx is clear. Eyes: Pupils: Pupils are equal, round, and reactive to light. Cardiovascular: Rate and Rhythm: Normal rate and regular rhythm. Heart sounds: Normal heart sounds. Pulmonary: Effort: Pulmonary effort is normal. Breath sounds: Normal breath sounds. Abdominal: General: Abdomen is flat. Bowel sounds are normal. Palpations: Abdomen is soft. Musculoskeletal: General: Normal range of motion. Cervical back: Normal range of motion and neck supple. Skin: General: Skin is warm and dry. Neurological: General: No focal deficit present. Mental Status: He is alert and oriented to person, place, and time. Psychiatric: Mood and Affect: Mood normal. Behavior: Behavior normal. Last Recorded Vitals There were no vitals taken for this visit. Assessment/Plan Problem List Items Addressed This Visit None Visit Diagnoses Dysphagia, unspecified type Relevant Orders Esophagogastroduodenoscopy (EGD) After examining Rome and talking to the staff I feel would be better served to have him undergo speech and language evaluation and then if aspiration and high risk of aspiration PEG tube may be the next alternative.. Given this I have canceled his endoscopy today and will follow-up after the speech and language evaluation RESEARCH CONSULTANT/Current Medications: (Not in a hospital admission) Current Outpatient Medications Medication Sig Dispense Refill acetaminophen (Tylenol) 325 mg suppository Insert 1 suppository (325 mg) into the rectum every 4 hours if needed for fever (temp greater than 38.0 C) or mild pain (1 - 3). bisacodyl (Fleet Bisacodyl) 10 mg/30 mL enema Insert 30 mL (10 mg) into the rectum 1 time. divalproex (Depakote) 250 mg EC tablet TAKE 1 TABLET BY MOUTH ONCE DAILY IN THE MORNING FOR SEIZURES NEW PCP 90 tablet 3 divalproex (Depakote) 500 mg EC tablet GIVE 1 TABLET BY MOUTH DAILY AT BEDTIME DX: SEIZURES NEW PCP90 tablet 3 ibuprofen 200 mg tablet Take 1 tablet (200 mg) by mouth every 6 hours. lactulose 20 gram/30 mL oral solution GIVE 15 ML (10GM) BY MOUTH TWICE DAILY *SEND WITH CYCLE* NEW PCP 900 mL 11 loratadine (Claritin) 10 mg tablet GIVE 1 TABLET BY MOUTH ONCE DAILY FOR ALLERGIES *OK TO CHARGE UNTIL MEDICAID ISSUE RESOLVED* 30 tablet 3 mirtazapine (Remeron) 15 mg tablet Take 1 tablet (15 mg) by mouth once daily at bedtime. polyethylene glycol (Glycolax, Miralax) 17 gram packet Take 17 g by mouth once daily. risperiDONE (RisperDAL) 1 mg tablet Take 2 tablets (2 mg) by mouth once daily. Current Facility-Administered Medications Medication Dose Route Frequency Provider Last Rate Last Admin lactated Ringer's infusion 50 mL/hr intravenous Continuous Abdullahi Arce MD midazolam (Versed) injection 1 mg 1 mg intravenous Once MD Bakari Nava DO [facility] Work Phone: 1([phone]) 851-736508-12-2024 History and physical note* Bakari Mitchell DO - 03/05/2024 1:50 PM EDT History Of Present Illness Rome Castillo is a 53 y.o. male presenting with with. Spastic cerebral palsy and history of seizure disorder presents with dysphagia for outpatient endoscopy. After interviewing the staff who caresfor Rome at the halfway he is at some weight loss related to his eating disorder. He is underwent a speech and language evaluation back in January 2023 which showed penetration of thin liquids into his airway they admit now that he is coughing with every meal despite thickened liquids although he is able to take his pills without difficulty. He did have some weight loss which they doubled his feeding concentration which seem to improve his weight and he is now back at his baseline. He is having no vomiting of undigested food and there is no sign of any esophageal problem. This appears to be entirely pharyngeal. After examining Rome and talking to the staff I feel would be better served to have him undergo speech and language evaluation and then if aspiration and high risk of aspiration PEG tube may be the next alternative.. Past Medical History Past Medical History: Diagnosis Date Seizures (Multi) Surgical History No past surgical history on file. Social History He reports that he has never smoked. He has never used smokeless tobacco. He reports that he does not drink alcohol and does not use drugs. Family History Family History Family history unknown: Yes Allergies No Known Allergies Review of Systems Pre-sedation Evaluation: ASA Classification - ASA 3 - Patient with moderate systemic disease with functional limitations Mallampati Score - II (hard and soft palate, upper portion of tonsils and uvula visible) Physical Exam Vitals and nursing note reviewed. Constitutional: Comments: Physical appearance of cerebral palsy with high palatal arch. Noncommunicative HENT: Head: Atraumatic. Mouth/Throat: Mouth: Mucous membranes are moist. Pharynx: Oropharynx is clear. Eyes: Pupils: Pupils are equal, round, and reactive to light. Cardiovascular: Rate and Rhythm: Normal rate and regular rhythm. Heart sounds: Normal heart sounds. Pulmonary: Effort: Pulmonary effort is normal. Breath sounds: Normal breath sounds. Abdominal: General: Abdomen is flat. Bowel sounds are normal. Palpations: Abdomen is soft. Musculoskeletal: General: Normal range of motion. Cervical back: Normal range of motion and neck supple. Skin: General: Skin is warm and dry. Neurological: General: No focal deficit present. Mental Status: He is alert and oriented to person, place, and time. Psychiatric: Mood and Affect: Mood normal. Behavior: Behavior normal. Last Recorded Vitals There were no vitals taken for this visit. Assessment/Plan Problem List Items Addressed This Visit None Visit Diagnoses Dysphagia, unspecified type Relevant Orders Esophagogastroduodenoscopy (EGD) After examining Rome and talking to the staff I feel would be better served to have him undergo speech and language evaluation and then if aspiration and high risk of aspiration PEG tube may be the next alternative.. Given this I have canceled his endoscopy today and will follow-up after the speech and language evaluation RESEARCH CONSULTANT/Current Medications: (Not in a hospital admission) Current Outpatient Medications Medication Sig Dispense Refill acetaminophen (Tylenol) 325 mg suppository Insert 1 suppository (325 mg) into the rectum every 4 hours if needed for fever (temp greater than 38.0 C) or mild pain (1 - 3). bisacodyl (Fleet Bisacodyl) 10 mg/30 mL enema Insert 30 mL (10 mg) into the rectum 1 time. divalproex (Depakote) 250 mg EC tablet TAKE 1 TABLET BY MOUTH ONCE DAILY IN THE MORNING FOR SEIZURES NEW PCP 90 tablet 3 divalproex (Depakote) 500 mg EC tablet GIVE 1 TABLET BY MOUTH DAILY AT BEDTIME DX: SEIZURES NEW PCP90 tablet 3 ibuprofen 200 mg tablet Take 1 tablet (200 mg) by mouth every 6 hours. lactulose 20 gram/30 mL oral solution GIVE 15 ML (10GM) BY MOUTH TWICE DAILY *SEND WITH CYCLE* NEW PCP 900 mL 11 loratadine (Claritin) 10 mg tablet GIVE 1 TABLET BY MOUTH ONCE DAILY FOR ALLERGIES *OK TO CHARGE UNTIL MEDICAID ISSUE RESOLVED* 30 tablet 3 mirtazapine (Remeron) 15 mg tablet Take 1 tablet (15 mg) by mouth once daily at bedtime. polyethylene glycol (Glycolax, Miralax) 17 gram packet Take 17 g by mouth once daily. risperiDONE (RisperDAL) 1 mg tablet Take 2 tablets (2 mg) by mouth once daily. Current Facility-Administered Medications Medication Dose Route Frequency Provider Last Rate Last Admin lactated Ringer's infusion 50 mL/hr intravenous Continuous Abdullahi Arce MD midazolam (Versed) injection 1 mg 1 mg intravenous Once MD Bakari Nava DO [facility] Phone: [phone] 115-568908-12-2024 History and physical note* Bakari Mitchell DO - 03/05/2024 1:50 PM EDT History Of Present Illness Rome Castillo is a 53 y.o. male presenting with with. Spastic cerebral palsy and history of seizure disorder presents with dysphagia for outpatient endoscopy. After interviewing the staff who caresfor Rome at the halfway he is at some weight loss related to his eating disorder. He is underwent a speech and language evaluation back in January 2023 which showed penetration of thin liquids into his airway they admit now that he is coughing with every meal despite thickened liquids although he is able to take his pills without difficulty. He did have some weight loss which they doubled his feeding concentration which seem to improve his weight and he is now back at his baseline. He is having no vomiting of undigested food and there is no sign of any esophageal problem. This appears to be entirely pharyngeal. After examining Rome and talking to the staff I feel would be better served to have him undergo speech and language evaluation and then if aspiration and high risk of aspiration PEG tube may be the next alternative.. Past Medical History Past Medical History: Diagnosis Date Seizures (Multi) Surgical History No past surgical history on file. Social History He reports that he has never smoked. He has never used smokeless tobacco. He reports that he does not drink alcohol and does not use drugs. Family History Family History Family history unknown: Yes Allergies No Known Allergies Review of Systems Pre-sedation Evaluation: ASA Classification - ASA 3 - Patient with moderate systemic disease with functional limitations Mallampati Score - II (hard and soft palate, upper portion of tonsils and uvula visible) Physical Exam Vitals and nursing note reviewed. Constitutional: Comments: Physical appearance of cerebral palsy with high palatal arch. Noncommunicative HENT: Head: Atraumatic. Mouth/Throat: Mouth: Mucous membranes are moist. Pharynx: Oropharynx is clear. Eyes: Pupils: Pupils are equal, round, and reactive to light. Cardiovascular: Rate and Rhythm: Normal rate and regular rhythm. Heart sounds: Normal heart sounds. Pulmonary: Effort: Pulmonary effort is normal. Breath sounds: Normal breath sounds. Abdominal: General: Abdomen is flat. Bowel sounds are normal. Palpations: Abdomen is soft. Musculoskeletal: General: Normal range of motion. Cervical back: Normal range of motion and neck supple. Skin: General: Skin is warm and dry. Neurological: General: No focal deficit present. Mental Status: He is alert and oriented to person, place, and time. Psychiatric: Mood and Affect: Mood normal. Behavior: Behavior normal. Last Recorded Vitals There were no vitals taken for this visit. Assessment/Plan Problem List Items Addressed This Visit None Visit Diagnoses Dysphagia, unspecified type Relevant Orders Esophagogastroduodenoscopy (EGD) After examining Rome and talking to the staff I feel would be better served to have him undergo speech and language evaluation and then if aspiration and high risk of aspiration PEG tube may be the next alternative.. Given this I have canceled his endoscopy today and will follow-up after the speech and language evaluation RESEARCH CONSULTANT/Current Medications: (Not in a hospital admission) Current Outpatient Medications Medication Sig Dispense Refill acetaminophen (Tylenol) 325 mg suppository Insert 1 suppository (325 mg) into the rectum every 4 hours if needed for fever (temp greater than 38.0 C) or mild pain (1 - 3). bisacodyl (Fleet Bisacodyl) 10 mg/30 mL enema Insert 30 mL (10 mg) into the rectum 1 time. divalproex (Depakote) 250 mg EC tablet TAKE 1 TABLET BY MOUTH ONCE DAILY IN THE MORNING FOR SEIZURES NEW PCP 90 tablet 3 divalproex (Depakote) 500 mg EC tablet GIVE 1 TABLET BY MOUTH DAILY AT BEDTIME DX: SEIZURES NEW PCP90 tablet 3 ibuprofen 200 mg tablet Take 1 tablet (200 mg) by mouth every 6 hours. lactulose 20 gram/30 mL oral solution GIVE 15 ML (10GM) BY MOUTH TWICE DAILY *SEND WITH CYCLE* NEW PCP 900 mL 11 loratadine (Claritin) 10 mg tablet GIVE 1 TABLET BY MOUTH ONCE DAILY FOR ALLERGIES *OK TO CHARGE UNTIL MEDICAID ISSUE RESOLVED* 30 tablet 3 mirtazapine (Remeron) 15 mg tablet Take 1 tablet (15 mg) by mouth once daily at bedtime. polyethylene glycol (Glycolax, Miralax) 17 gram packet Take 17 g by mouth once daily. risperiDONE (RisperDAL) 1 mg tablet Take 2 tablets (2 mg) by mouth once daily. Current Facility-Administered Medications Medication Dose Route Frequency Provider Last Rate Last Admin lactated Ringer's infusion 50 mL/hr intravenous Continuous Abdullahi Arce MD midazolam (Versed) injection 1 mg 1 mg intravenous Once MD Bakari Nava DO documented in this [facility] Work Phone: [phone]) [phone] History of Present illness Narrative* May Haines, - 12/16/2023 10:40 AM EDT Subjective Patient ID: Rome Castillo is a 53 y.o. male who presents for Follow-up (Coughing during meals; patients food is purred; 1+ years ago swallow eval was done and it was WNL/Nurse is concerned it couldbe a texture thing/Sometimes he gets into a gagging attack/She has noticed that the patient coughs/chokes on his spit/Its been going since about September 2023). HPI Pt is here today for coughing during meals. Patients food is already pured. He has had a swalllow eval done before. Pt sometimes is noted to cough on his own spit. Review of Systems Respiratory: Positive for cough. Gastrointestinal: Negative for diarrhea, nausea and vomiting (cxr). Musculoskeletal: Negative for back pain. Objective BP 110/77 Pulse 87 Ht 1.575 m (5' 2") Wt 49.9 kg (110 lb) BMI 20.12 kg/m Physical Exam Physical Exam Constitutional: General: He is not in acute distress. HENT: Head: Normocephalic. Nose: Nose normal. Mouth/Throat: Mouth: Mucous membranes are moist. Pharynx: No oropharyngeal exudate. Eyes: General: Right eye: No discharge. Left eye: No discharge. Extraocular Movements: Extraocular movements intact. Pupils: Pupils are equal, round, and reactive to light. Cardiovascular: Rate and Rhythm: Normal rate and regular rhythm. Heart sounds: No murmur heard. No gallop. Pulmonary: Effort: Pulmonary effort is normal. Rales bilateral lower lobes with upper airway wheezing Breath sounds: Normal breath sounds. No wheezing. Musculoskeletal: General: No swelling. Skin: General: Skin is warm and dry. Coloration: Skin is not jaundiced. Neurological: Mental Status: He is alert. Non verbal Cranial Nerves: No cranial nerve deficit. Comments: Atrophy of mare lower leg muscles, no contractures Assessment/Plan Problem List Items Addressed This Visit Cerebral palsy (Multi) Profound intellectual disability Other Visit Diagnoses Acute cough - Primary Relevant Orders XR chest 2 views Esophageal dysphagia Relevant Orders Referral to Gastroenterology Dysphagia - swallow eval 02/13 showed mod to severe esophageal dysphagia - on pureed diet - will refer to gi - I don't think it would be helpful to repeat swallow eval since it hasn't even been a year - can see what other options there is besides doing peg tube as I think he would pull it out - difficult to do speech therapy because he cannot really follow verbal commands - will order cxr to assess for aspir. 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 Discussed symptoms of retinal tear/detachment with caregivers and if noted will return to clinic without delay. Recheck in 1 year. 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 I have confirmed and edited as necessary the relevant HPI, ophthalmic history, ROS, and the neuro exam findings as obtained by others. I have seen and examined Rome Castillo. I have discussed the case and the management of this patient's care with the Resident/Fellow, if applicable. I also have reviewed and agree with the assessment and plan as stated above and agree withall of its relevant components. 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 Discussed symptoms of retinal tear/detachment with caregivers and if noted will return to clinic without delay. Recheck in 1 year. 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 I have confirmed and edited as necessary the relevant HPI, ophthalmic history, ROS, and the neuro exam findings as obtained by others. I have seen and examined Rome Castillo. I have discussed the case and the management of this patient's care with the Resident/Fellow, if applicable. I also have reviewed and agree with the assessment and plan as stated above and agree withall of its relevant components. [facility] History of Present illness Narrative* May Haines, - 06/20/2023 1:00 PM EST Subjective Patient ID: Rome Castillo is a 52 y.o. 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 HPI Patient is a 52 y.o. male patient who is here today to establish care with halfway staff member. Pt is non verbal, has a pmhz of seizure disorder, profound intellectual disabiity, cerebral palsy, dysphagia. Just had a swallow eval and is on pureed with nectar thick liquids, getting supplements with each meal. Review of Systems Unable to do ROS due to nonverbal status Objective BP 121/86 Pulse 89 Ht 1.575 m (5' 2") Comment: Wheelchair bound Wt 48.5 kg (107 lb) BMI 19.57 kg/m Physical Exam Constitutional: General: He is not in acute distress. HENT: Head: Normocephalic. Nose: Nose normal. Mouth/Throat: Mouth: Mucous membranes are dry. Pharynx: No oropharyngeal exudate. Eyes: General: Right eye: No discharge. Left eye: No discharge. Extraocular Movements: Extraocular movements intact. Pupils: Pupils are equal, round, and reactive to light. Cardiovascular: Rate and Rhythm: Normal rate and regular rhythm. Heart sounds: No murmur heard. No gallop. Pulmonary: Effort: Pulmonary effort is normal. No respiratory distress. Breath sounds: Normal breath sounds. No wheezing. Musculoskeletal: General: No swelling. Skin: General: Skin is warm and dry. Coloration: Skin is not jaundiced. Neurological: Mental Status: He is alert. Cranial Nerves: No cranial nerve deficit. Comments: Atrophy of mare lower leg muscles, no contractures Assessment/Plan Problem List Items Addressed This Visit Seizure disorder (CMS/HCC) Relevant Orders Valproic Acid Other Visit Diagnoses Screening for thyroid disorder - Primary Relevant Orders TSH with reflex to Free T4 if abnormal Wellness examination Relevant Orders Comprehensive Metabolic Panel Screening for lipid disorders Relevant Orders Lipid Panel Seizure disorder, CP, profound intellectual disability - on Divaloprex 750mg po bid - ruisperidibne 1mg po daily - mirtazapine 15mg po daily - sees Psych Dr Mahoney - will need to see when last bloodwork was done 2. Chronic constipation - on bowel regiment 3. 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 Monitor yearly. 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 Monitor. I have confirmed and edited as necessary the relevant ophthalmic history, ROS, and the neuro exam findings as obtained by others. I have seen and examined Rome Castillo. I have discussed the case and the management of this patient's care with the Resident/Fellow, if applicable. I also have reviewed and agree with the assessment and plan as stated above and agree withall of its relevant components. 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 Monitor yearly. 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 Monitor. I have confirmed and edited as necessary the relevant ophthalmic history, ROS, and the neuro exam findings as obtained by others. I have seen and examined Rome Castillo. I have discussed the case and the management of this patient's care with the Resident/Fellow, if applicable. I also have reviewed and agree with the assessment and plan as stated above and agree withall of its relevant components. Stephen Ortega II, OD [facility] History of Past illness Narrative* Problem Noted Date Resolved Date Alternating esotropia 05/29/2014 09/30/2020 documented as of this encounter (statuses as of 10/21/2022) [facility] History of Past illness Narrative* Problem Noted Date Diagnosed Date Resolved Date Alternating esotropia 05/29/20142020 documented as of this encounter (statuses as of 10/27/2023) [facility] Note Date/Time January 17, 2025 7:32 am [facility] Medical Records Department [address] [place] [address] Emergency Department Summary 01/17/25 MR#: [id number] Acct: [id number] Name: ROME CASTILLO Rep #:[id number] : 1970 54 From: Elías Banegas PCP: Dr. Prema Archer DO Status:PRE ER Location: ED HPI History of Present Illness Chief Complaint: Other, Pain/Inj Narrative Narrative: Patient nonverbal. Sent in for evaluation of PEG tube. Reported patient tuggedon the tube there was bleeding. Unclear exactly when this was placed as there is no current records. [facility] Medical History (Updated 01/17/25 @ 07:[address] Elías Hernández DO) Aphasia Constipation Cerebral palsy Hyperactivity Seizure PEG tube malfunction Nonverbal Home Medications ?Medication ?Instructions ?Recorded ?Last Taken ?Type lactose-reduced food-fiber 0.07 250 ml feeding tube 5X /DAY 01/17/25 Unknown History gram-1.5 kcal/mL liquid for tube feed (Isosource 1.5 Devon) lactulose 10 gram/15 mL oral 15 ml feeding tube BID Unknown History solution (Constulose) loratadine 10 mg tablet 10 mg feeding tube DAILY Unknown History (Allerclear) mirtazapine 15 mg tablet 15 mg feeding tube QHS 01/17 Unknown History pantoprazole 40 mg granules 40 mg feeding tube BID Unknown History delayed-release for susp in packet (Protonix) polyethylene glycol 3350 17 17 g feeding tube DAILY Unknown History gram/dose oral powder (Miralax) risperidone 3 mg tablet (Risperdal) 3 mg feeding tube QHS 01/17/25 Unknown History valproic acid (as sodium salt) 250 250 mg feeding tube DAILY 01/17/25 Unknown History mg/5 mL (5 mL) oral solution valproic acid (as sodium salt) 500 500 mg feeding tube QHS 01/17/25 Unknown History mg/10 mL (10 mL) oral solution Allergy/AdvReac Type Severity Reaction Status Date / Time No Known Allergies Allergy Verified 01/17/25 06:57 Social History Smoking Status: Unknown if ever smoked ROS ROS ED Review of Systems ROS Unobtainable: other Details: Limited secondary to patient nonverbal EXAM Physical Exam Const Vital Signs: 01/17/25 06:56 Temperature 97.6 F L Temperature Source Temporal Pulse Rate 84 Respiratory Rate 16 Blood Pressure 141/32 H Blood Pressure Mean 68 Pulse Ox 98 Oxygen Delivery Method Room Air Positive cachectic and contractures General Appearance ED: cachectic and contractures Nutritional Appearance: cachectic HEENT normocephalic and atraumatic Eyes General Eye ED: Yes normal appearance of both eyes Resp normal respiratory effort and normal air movement Cardio regular rate and regular rhythm GI GI Narrative: Abdominal binder, removed, PEG tube, stressing, orifice appears fairly fresh wound, dried blood around this, no active bleeding. Neuro Neuro Narrative: Awake, nontoxic Skin Skin Narrative: See above MDM MDM MDM Narrative Medical decision making narrative: Interventions / MDM: Differential diagnosis: PEG tube evaluation Diagnosis considered but do not suspect: Dislodged PEG tube however KUB confirmsplacement. My EKG interpretation: N/A Imaging independently reviewed and interpreted by myself: KUB: Performed formed with Gastrografin confirms placement External documents reviewed: N/A Test considered but not ordered:N/A ED course: Concerns for bleeding from PEG tube, appears fairly fresh placement with the wound. Patient being nonverbal, KUB with Gastrografin will be ordered to confirm location. 0725: KUB reviewed bedside confirms placement in the stomach. Caregiver bedside. Reports overall place a year ago however was previously pulled needed surgical revision, she cannot tell me when. He is at a halfway nonverbal. There is a booklet of medications however no medical conditions that she can tell me specifically. Reports he is PEG tube dependent. I discussed wound carecontinue dressings. Tube is okay to use. Patient will be discharged back with caregiver. Re-evaluation: stable Disposition discussed with patient/family/significant other: Caregiver Case discussed with consulting clinician: N/A This note was generated with [employer] dictation software. It may contain incorrectwords, spelling, and punctuation that were not noted in checking the note beforesigning. Discharge Plan Triage Chief Complaint: Other, Pain/Inj ED Provider: Elías Hernández Dx/Rx/DC Orders Clinical Impression: Irritation around percutaneous endoscopic gastrostomy (PEG) tube site, Nonverbal Instructions: Feeding Tube Prescriptions: No Action lactulose [Constulose] 10 gram/15 mL solution 15 ml feeding tube BID loratadine [Allerclear] 10 mg tablet 10 mg feeding tube DAILY mirtazapine 15 mg tablet 15 mg feeding tube QHS pantoprazole [Protonix] [address] peterson susp in packet 40 mg feeding tube BID polyethylene glycol 3350 [Miralax] 17 gram/dose powder 17 g feeding tube DAILY risperidone [Risperdal] 3 mg tablet 3 mg feeding tube QHS valproic acid (as sodium salt) 500 mg/10 mL (10 mL) solution 500 mg feeding tube QHS valproic acid (as sodium salt) 250 mg/5 mL (5 mL) solution 250 mg feeding tube DAILY Isosource 1.5 Devon 0.07 gram-1.5 kcal/mL liquid 250 ml feeding tube 5X/DAY Primary Care Provider: Prema Archer Referrals: Prema Archer DO [Primary Care Provider] - 1-2 Weeks Activity Restrictions/Additional Instructions: Imaging confirms PEG tube in the correct location. Print Language: Hong Konger Disposition Disposition: Home, Self Care What to do if you have Problems For any increased pain, shortness of breath, bleeding, nausea or vomiting, chestpain, or any unexpected problems, contact your Primary Care Provider. Call [facility] ([phone]) or report to the closest Emergency Room. Call 911 if necessary. 01/17/25 0732 <Electronically signed by Elías Banegas> Cosigner Signature (if applicable): CC: Dr. 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- Primary Multiple defects of retina without detachment Alternating exotropia High myopia, bilateral Myopia [facility] Diagnosis Acute cough- Primary Esophageal dysphagia Dysphagia, pharyngoesophageal phase 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 Profound intellectual disability Profound mental retardation documented in this encounter [facility] Work Phone: [phone] note* Diagnosis Acute cough documented in this encounter [facility] Work Phone: [phone] note* Diagnosis Rash- Primary Rash and other nonspecific skin eruption documented in this encounter [facility] Work Phone: [phone] note* Diagnosis Dysphagia, oropharyngeal phase documented in this encounter [facility] Work Phone: [phone] note* Diagnosis Failure to introduce or to remove other tube or instrument- Primary documented in this encounter [facility] Work Phone: [phone] note* Diagnosis Sepsis (HCC)- [facility] Diagnosis Dysphagia, unspecified type documented in this encounter [facility] Work Phone: [phone] note* Diagnosis Dysphagia, oropharyngeal phase- Primary Pulmonary aspiration, initial encounter 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 documented in this encounter [facility] Work Phone: [phone] note* Diagnosis Dysphagia, oropharyngeal phase- Primary Pulmonary aspiration, initial encounter 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 documented in this encounter [facility] Work Phone: [phone] note* Diagnosis Spastic quadriplegic cerebral palsy (Multi)- Primary Quadriplegic infantile cerebral palsy Seizure disorder (Multi) Unspecified epilepsy without mention of intractable epilepsy Dysphagia, oropharyngeal phase documented in this encounter [facility] Work Phone: [phone] note* Diagnosis Gastrostomy complication (HCC)- Primary Unspecified gastrostomy complication Cerebral palsy, unspecified type (HCC) [facility]* Diagnosis Dysphagia, oropharyngeal phase- Primary Constipation, unspecified constipation type Environmental allergies Other allergy, other than to medicinal agents Gastroesophageal reflux disease, unspecified whether esophagitis present Status post gastrostomy (HCC) Gastrostomy status Profound intellectual disability Profound mental retardation 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 [facility] Diagnosis Dysphagia, oropharyngeal phase- Primary Constipation, unspecified constipation type Environmental allergies Other allergy, other than to medicinal agents Gastroesophageal reflux disease, unspecified whether esophagitis present Status post gastrostomy (HCC) Gastrostomy status Profound intellectual disability Profound mental retardation 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 [facility] Diagnosis 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- Primary Multiple defects of retina without detachment Vitreous floaters of both eyes Alternating exotropia High myopia, bilateral Myopia [facility]* Diagnosis Dysphagia, oropharyngeal phase- Primary Constipation, unspecified constipation type Environmental allergies Other allergy, other than to medicinal agents Gastroesophageal reflux disease, unspecified whether esophagitis present Status post gastrostomy (HCC) Gastrostomy status Profound intellectual disability Profound mental retardation 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 Hearing loss of right ear due to cerumen impaction- Primary Irritation around percutaneous endoscopic gastrostomy (PEG) tube site (HCC) Spastic quadriplegic cerebral palsy (HCC) Quadriplegic infantile cerebral palsy [facility] Diagnosis Dysphagia, oropharyngeal phase- Primary Constipation, unspecified constipation type Environmental allergies Other allergy, other than to medicinal agents Gastroesophageal reflux disease, unspecified whether esophagitis present Status post gastrostomy (HCC) Gastrostomy status Profound intellectual disability Profound mental retardation 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 Hearing loss of right ear due to cerumen impaction- Primary Irritation around percutaneous endoscopic gastrostomy (PEG) tube site (HCC) Spastic quadriplegic cerebral palsy (HCC) Quadriplegic infantile cerebral palsy Constipation, unspecified constipation type [facility] Diagnosis Dysphagia, oropharyngeal phase- Primary Constipation, unspecified constipation type Environmental allergies Other allergy, other than to medicinal agents Gastroesophageal reflux disease, unspecified whether esophagitis present Status post gastrostomy (HCC) Gastrostomy status Profound intellectual disability Profound mental retardation 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 * Ostomy Surgery Discharge Instructions ([place]er) [facility] Discharge instructions Additional Instructions Imaging confirms PEG tube in the correct location.[facility] Work Phone: Hospital Discharge instructionsAdditional Instructions The blood work here today did not show any acute findings and the CT abdomen pelvis showed constipation this is likely leading to his high residuals and it is advised to encourage bowel movements with either MiraLAX or other stool softeners. If he is having adequate bowel movements with high residuals with persistent nausea vomiting return to the emergency department or return with any other concerns. Follow-up with his primary care physician as well. [facility] Work Phone: Reason for referral (narrative)* Consultation (Routine) - Authorized Specialty Diagnoses / Procedures Referred By Eli epperson Referred To Contact Primary Care Procedures Follow Up In Primary Care - Established [facility], May L, DO [address] [facility] Physician [place] [id number] Referral ID Status Reason Start Date Expiration Date V isits Requested Visits Authorized [id number] Authorized 06/20/2023 06/19/2024 1 1 [facility] Work Phone: Reabay for referral (narrative)* Consultation (Routine) - Authorized Specialty Diagnoses / Procedures Referred By Contac t Referred To Contact Gastroenterology Diagnoses Esophageal dysphagia May Haines DO [address] [facility] Physician [place] [id number] Referral ID Status Reason Start Date Expiration Date Visits Requested Visits Authorized [id number] Authorized Specialty Services Required 12/16/2023 12/15/2024 1 1 * Imaging (Routine) - Authorized Specialty Diagnoses / Procedures Referred By Contac t Referred To Contact Radiology Diagnoses Acute cough Procedures XR chest 2 views May Haines DO [address] [place] [address] [place] [address] Referral ID Status Reason Start Date Expiration Date Visits Requested Visits Authorized [id number] Authorized Perform Procedure 12/16/2023 12/15/2024 1 1 [facility] Work Phone: reason for referral (narrative)* Consultation (Routine) - Authorized Specialty Diagnoses / Procedures Referred By Contac t Referred To Contact Primary Care Procedures Follow Up In Primary Care - Established May Haines DO [address] [facility] [place] [address] Referral ID Status Reason Start Date Expiration Date V isits Requested Visits Authorized [id number] Authorized 04/23/2024 04/23/2025 1 1 [facility] Work Phone: Reason for referral (narrative)No reason for referral information availableWDayton [facility] Work Phone: Reason for visit Narrative* Endoscopy (Routine) - Authorized Specialty Diagnoses / Procedures Referred By Contact Referred To Contact Gastroenterology Diagnoses Dysphagia, oropharyngeal phase Procedures Esophagogastroduodenoscopy (EGD) w PEG Tube Placement DE ESOPHAGOGASTRODUODENOSCOPY TRANSORAL DIAGNOSTIC DE EGD TRANSORAL BIOPSY SINGLE/MULTIPLE Bakari Mitchell DO [address] [facility], [place] [address] Phone: tel:[phone] fax: Referral ID Status Reason Start Date Expiration Date V isits Requested Visits Authorized [id number] Authorized 05/16/2024 05/16/2025 1 1 [facility] Work Phone: Reason for visit Narrative* Auth/Cert (Routine) Specialty Diagnoses / Procedures Referred By Contac t Referred To Contact Diagnoses PEG tube replacement Referral ID Status Reason Start Date Expiration Date Visits Re quested Visits Authorized [id number] 1 1 [facility] Endoscopy (Routine) - Authorized Specialty Diagnoses / Procedures Referred By Contact Referred To Contact Gastroenterology Diagnoses Dysphagia, unspecified type Procedures Esophagogastroduodenoscopy (EGD) DE ESOPHAGOGASTRODUODENOSCOPY TRANSORAL DIAGNOSTIC DE EGD TRANSORAL BIOPSY SINGLE/MULTIPLE Bakari Mitchell, DO [address] [facility], [place] [address] Phone: tel:[phone] fax:[phone] Referral ID Status Reason Start Date Expiration Date V isits Requested Visits Authorized [id number] Authorized 12/21/2023 12/20/2024 1 1 [facility] Work Phone: Reibcb for visit Narrative* Endoscopy (Routine) - Authorized Specialty Diagnoses / Procedures Referred By Contact Referred To Contact Gastroenterology Diagnoses Dysphagia, oropharyngeal phase Procedures Esophagogastroduodenoscopy (EGD) w PEG Tube Placement DE ESOPHAGOGASTRODUODENOSCOPY TRANSORAL DIAGNOSTIC DE EGD TRANSORAL BIOPSY SINGLE/MULTIPLE Bakari Mitchell, DO [address] [facility], [address] [place] [address] Phone: tel:[phone] fax:[phone] Referral ID Status Reason Start Date Expiration Date V isits Requested Visits Authorized [id number] Authorized 05/16/2024 05/16/2025 1 1 [facility] Work Phone: Summary Purpose Family History No Family History Records FoundNo Family History Records FoundNo Family History Records FoundNo Family History Records FoundNo Family History Records FoundNo Family History Records FoundNo Family History Records FoundNo Family History Records FoundNo Family History Records FoundNo Family History Records FoundNo Family History Records FoundNo Family History Records FoundNo Family History Records FoundNo Family History Records FoundNo Family History Records Found Advance Directives No Advanced Directives Records Found Date Activated Date Inactivated Comments 06/20/2024 10:21 AM 06/27/2024 7:04 PM Documents on File Type Date Recorded Patient Bioinformatician Expl anation Guardianship Papers 07/17/2024 Prabha Rivera 1996-[employer] Date Activated Date Inactivated Comments 06/20/2024 10:21 AM 06/27/2024 7:04 PM Documents on File Type Date Recorded Patient Bioinformatician Expl anation Guardianship Papers 07/17/2024 Prabha Rivera 1996-[employer] Advance Directive Response Recorded Date/ Time Do you have a Healthcare Power of Gum Remover? Yes February 07, 2025 1:20pm Reason for Referral Status Reason Specialty Diagnoses / Procedures Referre d By Contact Referred To Contact Closed Radiology Diagnoses Dysphagia, unspecified type Procedures XR Modifed Barium Swallow Cruzito Doe MD [address] [place] [address] Specialty Diagnoses / Procedures Referred By Contac t Referred To Contact Radiology Diagnoses Acute cough Procedures XR chest 2 views May Haines DO [address] [facility] [address] [facility] [place] [address] Referral ID Status Reason Start Date Expiration Date Visits Requested Visits Authorized [id number] Authorized Perform Procedure 12/16/2023 12/15/2024 1 1 Specialty Diagnoses / Procedures Referred By Contact Referred To Contact Gastroenterology Diagnoses Dysphagia, unspecified type Procedures Esophagogastroduodenoscopy (EGD) DE ESOPHAGOGASTRODUODENOSCOPY TRANSORAL DIAGNOSTIC DE EGD TRANSORAL BIOPSY SINGLE/MULTIPLE Bakari Mitchell DO [address] [facility], [place] [address] Referral ID Status Reason Start Date Expiration Date V isits Requested Visits Authorized [id number] Authorized 12/21/2023 12/20/2024 1 1 Specialty Diagnoses / Procedures Referred By Contac t Referred To Contact Radiology Diagnoses Pulmonary aspiration, initial encounter Spastic quadriplegic cerebral palsy (Multi) Procedures FL modified barium swallow study Bakari Mitchell DO [address] [place] [address] Referral ID Status Reason Start Date Expiration Date Visits Requested Visits Authorized [id number] Authorized Perform Procedure 03/14/2024 03/14/2025 1 1 Assessments Diagnosis Dysphagia, unspecified type Medications Administered Section Active Administered Medications - up to 3 most recent administrations Medication Order MAR Action Action Date Dose Rate Site fluorescein-benoxinate 0.25-0.4 % 1 Drop (FLURESS) 1 Drop, BOTH EYES, DIRECTED, Starting on Sandrine 10/21/22 at 1030, Until Sandrine 10/21/22 at 2229, Administer for applanation tonometry. In the event of a Fluress shortage, administer Tania-Fluor 1 drop into both eyes as directed for applanation tonometry Given 10/21/2022 10:30 AM EDT 1 Drop tropicamide 1 % 1 Drop (MYDRIACYL) 1 Drop, BOTH EYES, DIRECTED, Starting on Sandrine 10/21/22 at 1030, Until Sandrine 10/21/22 at 2229, Administer for dilation Given 10/21/2022 10:30 AM EDT 1 Drop Chief Complaint and Reason for Visit Chief Complaint Admit Date pulled out peg tube January 17, 2025 6:54 am Chief Complaint Admit Date pulled out peg tube January 17, 2025 6:54 am Vomiting February 07, 2025 8:44 am Additional Source Comments (unrecognized sect ion and content) No Status Records FoundNo Status Records FoundNo Status Records FoundNo Status Records FoundNo Status Records FoundNo Status Records FoundNo Status Records FoundNo Status Records FoundNo Status Records FoundNo Status Records FoundNo Status Records FoundNo Status Records FoundNo Status Records FoundNo Status Records FoundNo Status Records Found INFORMATION SOURCE (unrecogn ized section and content) DATE CREATED AUTHOR 05/15/2018 [facility] DATE CREATED AUTHOR AUTHOR'S ORGANIZ ATION 04/22/2019 [facility] DATE CREATED AUTHOR AUTHOR'S ORGANIZ ATION 04/13/2021 [facility] DATE CREATED AUTHOR AUTHOR'S ORGANIZ ATION 08/26/2021 [facility] DATE CREATED AUTHOR AUTHOR'S ORGANIZ ATION 04/25/2022 [facility] DATE CREATED AUTHOR AUTHOR'S ORGANIZ ATION 02/25/2023 [facility] DATE CREATED AUTHOR AUTHOR'S ORGANIZ ATION 02/09/2024 [facility] DATE CREATED AUTHOR AUTHOR'S ORGANIZ ATION 07/19/2024 [facility] DATE CREATED AUTHOR AUTHOR'S ORGANIZ ATION 07/20/2024 [facility] DATE CREATED AUTHOR AUTHOR'S ORGANIZ ATION 10/26/2024 [facility] DATE CREATED AUTHOR AUTHOR'S ORGANIZ ATION 11/21/2024 [facility] DATE CREATED AUTHOR AUTHOR'S ORGANIZ ATION 11/27/2024 [facility] DATE CREATED AUTHOR AUTHOR'S ORGANIZ ATION 02/17/2025 [facility] DATE CREATED AUTHOR AUTHOR'S ORGANIZ ATION 05/04/2025 [facility] DATE CREATED AUTHOR AUTHOR'S ORGANIZ ATION 05/06/2025 [facility] Reason for Visit (unrecogniz ed section and content) Status Reason Specialty Diagnoses / Procedures Referre d By Contact Referred To Contact Closed Radiology Diagnoses Dysphagia, unspecified type Procedures XR Modifed Barium Swallow Cruzito Doe MD [address] [place] [address] Reason Comments Retinal Evaluation Reason Comments 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 Reason Comments Follow-up Coughing during meal s; patients food is purred; 1+ years ago swallow eval was done and it was WNLNurse is concerned it could be a texture thingSometimes he gets into a gagging attackShe has noticed that the patient coughs/chokes on his spitIts been going since about September 2023 Specialty Diagnoses / Procedures Referred By Eli epperson Referred To Contact Radiology Diagnoses Acute cough Procedures XR chest 2 views May Haines, DO [address] [facility] [place] [address] Referral ID Status Reason Start Date Expiration Date Visits Requested Visits Authorized [id number] Authorized Perform Procedure 12/16/2023 12/15/2024 1 1 Reason Comments Rash Red bumps on his bot tomPresent for about a monthTessa said she will get it looking better but the patient will have a BM and it will flare up againThey were also concerned because the changed the type of underwear he wears as wellShe does apply topicals to help with healing along with bathing twice a week to help clear up the rash Reason Comments pt had peg tube placed 2 days ago and pu lled it out tonight Specialty Diagnoses / Procedures Referred By Contact Referred To Contact Gastroenterology Diagnoses Dysphagia, unspecified type Procedures Esophagogastroduodenoscopy (EGD) DE ESOPHAGOGASTRODUODENOSCOPY TRANSORAL DIAGNOSTIC DE EGD TRANSORAL BIOPSY SINGLE/MULTIPLE Bakari Mitchell, DO [address] [facility] [place] [address] Referral ID Status Reason Start Date Expiration Date V isits Requested Visits Authorized [id number] Authorized 12/21/2023 12/20/2024 1 1 Reason Comments MBSS Specialty Diagnoses / Procedures Referred By Eli epperson Referred To Contact Radiology Diagnoses Pulmonary aspiration, initial encounter Spastic quadriplegic cerebral palsy (Multi) Procedures FL modified barium swallow study Bakari Mitchell R, DO [address] [facility], [address] [place] [address] Referral ID Status Reason Start Date Expiration Date Visits Requested Visits Authorized [id number] Authorized Perform Procedure 03/14/2024 03/14/2025 1 1 Reason Comments Annual Exam assisted physical Reason Comments Post-op S/p Ex Lap with PEG placement 06/20/24. Reason Comments Establish Care Orders for GI for tr ansfering back home from facility Reason Onset Date Comments Medication Refill 09/21/2024 Reason Onset Date Comments [facility] 10/25/2024 Reason Comments Cough X 1 day Reason Comments Hospital f/u [facility] f/u irrit ated feeding tube Cerumen Impaction Rt ear wax, Pt was r ubbing ear Reason Comments ER F/U ER f/u- do to vomiti ng & problems with BM Reason Onset Date Comments Medication Refill 04/12/2025 Vilma Acevedo, SHRIMP HEADER - 11/20/2018 10:30 AM EDT Procedure Notes (unrecognize d section and content) Procedure(s): SHRIMP HEADER MODIFIED BARIUM SWALLOW OUTPATIENT MODIFIED BARIUM SWALLOW STUDY General Information Ordering Physician: Dr. Cruzito Doe Radiologist: Dr. Mario Figueroa Date of Order: 11/09/2018 Date of Onset: Pt with decline in swallowing for past year per halfway/ECF staff who accompanied pt for study; pt with coughing during meals Date of Evaluation: 11/20/2018 Type of Study: Initial [facility] [place] Mental Status: Alert Hx of intellectual disability and living in a halfway/ECF; dependent for feeding; did not attempt to communicate verbally Oral status: natural teeth Respiratory status: room air Feeding: staff, pt is dependent for feeding View: Lateral Study Limitations: Pt required max assist with positioning as pt with tendency to slump down in chair; with head turned to the left and also in extended position Diet Prior to the Study: pureed and nectar thick liquids Textures Thin spoon, nectar spoon, honey spoon, pudding spoon, regular solid Oral phase Moderate oral phase deficits Lingual Control: loss of bolus to pharynx Lingual Coordination: tongue pumping Lingual Strength: oral stasis, roof of mouth, superior tongue, stasis flow to pharynx Mastication: inadequate, pieces unchewed, no ratary chew Pharyngeal Phase Mild pharyngela phase deficitsDelay Swallow Initiated at: pyriforms Vallecular residue flow to pyriforms: stasis flow to pyriforms; pt did not follow cue to complete a dry swallow Pharyngeal Sensation: Delayed pharyngeal swallow, no sensory response to transient penetration with honey thick liquid Esophageal Phase Esophageal Phase: WFL Penetration/Aspiration: Penetration Present Yes, transient with honey thick liquid during the swallow Consistencies Penetrated; Honey teaspoon Caused by: Uncoordinated swallow, pharyngeal swallow delay Is there a Second Penetration? No Aspiration Present? No Clinical Impressions: 47 year old male with Hx of Intellectual Disability and cerebral palsy; per halfway/ECF staff, pt with increased coughing during meals, pt was previously on a ground meats diet. Pt completed MBS study with moderate oral; mild pharyngeal dysphagia. Oropharyngeal deficits characterized by reduced lingual strength, coordination, and control with posterior escape to the pyriforms with honey thick liquid via tsp prior to swallow combined in swallow delay resulting in transient penetration via interarytenoid space; no sensory response. Pt with lingual pumping for bolus transit; did not attempt to masticate small piece of cookie as it was unchewed; with spontaneous cough when swallowing cookie, however no aspiration visualized with any trials. Thin liquid residuals spilled from posterior lingual blade/oral cavity and collected in the pyriforms; pt did not follow commands to complete a dry swallow; head was in extension position and was in a turned position to the left, facing the radiology equipment/tower. Rx pt continue with current pureed diet; continue with nectar thick liquid via tsp, however, may consider advancing to thin liquid via spoon as long as pt is awake/cooperative and is given extra time to swallow in between each food/liquid presentation, sitting upright. Recommendations PO Recommendations: Pureed diet/thin liquids Strategies: allow extra time to swallow each bite/sip via tsp Posture: Sit 90 degrees Food Presentation: small bites Liquid Presentation: Liquids by spoon Medication Presentation: Crushed in puree Amount of Supervision: 100% supervised Treatment Techniques: Train caregivers/family feeding/swallowing strategies Further Recommendations: Assess for diet tolerance Factors for Returning to Prior Level of Function Body Structure and Function: Neurologic impairment; Musculoskeletal impairment Explain Impairments: Hx of Intellectual Disabiity, cerebral palsy, dependent for ADLs Activities and Participation: Mobility limitation, balance limitation and fall risk, ADL/IADL limitation; communication limitation, swallowing limitation Explain Limitations: Hx of Intellectual Disability, cerebral palsy, dependent for ADLs Enrivonmental Factors: Family/caregiver support Explain Environmental Factors: Pt resides in a halfway/ECF and is dependent for ADLs Personal Factors: Awareness of own capacity and performance Explain Personal Factors: Hx of Intellectual Disability, cerebral palsy, dependent for ADLs Are Skilled Therapy Services Needed After Discharge: No Vilma Acevedo MA, CCC-SHRIMP HEADER documented in this encounter Source Comments (unrecognize d section and content) In the event this informatio n is protected by the Federal Confidentiality of Alcohol and Drug Abuse Patient Records regulations: The Federal rules restrict any use of the information to criminally investigate or prosecute any alcohol or drug abuse patient.[facility] the event this information is protected by the Federal Confidentiality of Alcohol and Drug Abuse Patient Records regulations: The Federal rules restrict any use of the information to criminally investigate or prosecute any alcohol or drug abuse patient.[facility] the event this information is protected by the Federal Confidentiality of Alcohol and Drug Abuse Patient Records regulations: The Federal rules restrict any use of the information to criminally investigate or prosecute any alcohol or drug abuse patient.[facility] the event this information is protected by the Federal Confidentiality of Alcohol and Drug Abuse Patient Records regulations: The Federal rules restrict any use of the information to criminally investigate or prosecute any alcohol or drug abuse patient.[facility] the event this information is protected by the Federal Confidentiality of Alcohol and Drug Abuse Patient Records regulations: The Federal rules restrict any use of the information to criminally investigate or prosecute any alcohol or drug abuse patient.[facility] the event this information is protected by the Federal Confidentiality of Alcohol and Drug Abuse Patient Records regulations: The Federal rules restrict any use of the information to criminally investigate or prosecute any alcohol or drug abuse patient.[facility] Care Teams (unrecognized sec tion and content) County Manager Relationship Specialty Start Date End Date Cruzito Doe PCP - General Family Medicine 03/11/14 County Manager Relationship Specialty Start Date End Date May Haines DO [address] [facility] [place] [address] PCP - General Internal Medicine 05/05/23 County Manager Relationship Specialty Start Date End Date May Haines DO [address] [facility] [place] [address] PCP - General Internal Medicine 10/27/23 County Manager Relationship Specialty Start Date End Date May Haines DO [address] [facility] [place] [address] PCP - General Internal Medicine 05/05/23 County Manager Relationship Specialty Start Date End Date May Haines DO [address] [facility] [place] [address] PCP - General Internal Medicine 05/05/23 County Manager Relationship Specialty Start Date End Date May Haines DO [address] [facility] [place] [address] PCP - General Internal Medicine 05/05/23 County Manager Relationship Specialty Start Date End Date May Haines DO [address] [facility] [place] [address] PCP - General Internal Medicine 05/05/23 County Manager Relationship Specialty Start Date End Date May Haines DO [address] [facility] [place] [address] PCP - General Internal Medicine 10/27/23 County Manager Relationship Specialty Start Date End Date May Haines DO [address] [facility] [place] [address] PCP - General Internal Medicine 05/05/23 County Manager Relationship Specialty Start Date End Date Cruzito Doe MD [address] [place] [address] PCP - General Family Medicine 11/16/18 County Manager Relationship Specialty Start Date End Date May Haines DO [address] [facility] [place] [address] PCP - General Internal Medicine 05/05/23 County Manager Relationship Specialty Start Date End Date May Haines DO [address] [facility] [place] [address] PCP - General Internal Medicine 05/05/23 County Manager Relationship Specialty Start Date End Date May Haines DO [address] [facility] [place] [address] PCP - General Internal Medicine 05/05/23 County Manager Relationship Specialty Start Date End Date May Haines DO [address] [facility] [place] [address] PCP - General Internal Medicine 10/27/23 County Manager Relationship Specialty Start Date End Date Cruzito Doe MD [address] [place] [address] PCP - General Family Medicine 11/16/18 County Manager Relationship Specialty Start Date End Date Prema Archer DO [address] [place] [address] PCP - General Family Medicine 08/28/24 County Manager Relationship Specialty Start Date End Date Prema Archer DO [address] [place] [address] PCP - General Family Medicine 08/28/24 County Manager Relationship Specialty Start Date End Date Prema Archer DO [address] [place] [address] PCP - General Family Medicine 08/28/24 County Manager Relationship Specialty Start Date End Date Prema Archer DO [address] [place] [address] PCP - General Family Medicine 08/28/24 County Manager Relationship Specialty Start Date End Date Prema Archer DO [address] [place] [address] PCP - General Family Medicine 08/28/24 County Manager Relationship Specialty Start Date End Date Prema Archer DO [address] [place] [address] PCP - General Family Medicine 11/07/24 County Manager Relationship Specialty Start Date End Date Prema Archer DO [address] [place] [address] PCP - General Family Medicine 08/28/24 County Manager Relationship Specialty Start Date End Date Prema Archer DO [address] [place] [address] PCP - General Family Medicine 08/28/24 County Manager Relationship Specialty Start Date End Date Prema Archer DO [facility] [address] [address] PCP - General Family Medicine 08/28/24 Team Status: Active Member Role Status Dates Dr. Prema Archer DO Primary Care Provider Active Team Status: Inactive Member Role Status Dates Dr. Prema Archer DO Primary Care Provider Active Start: January 17, 2025 End: January 17, 2025 Dr. Elías Hernández DO Emergency Provider Active Start : January 17, 2025 End: January 17, 2025 County Manager Relationship Specialty Start Date End Date Prema Archer DO [address] [place], [place] [id number] PCP - General Family Medicine 08/28/24 County Manager Relationship Specialty Start Date End Date Prema Archer DO [address] [place] [address] PCP - General Family Medicine 08/28/24 County Manager Relationship Specialty Start Date End Date Prema Archer DO [address] [place] [id number] PCP - General Family Medicine 08/28/24 Team Status: Active Member Role/Relationship Status Dates Dr. Prema Archer DO Primary Care Provider Active Team Status: Inactive Member Role/Relationship Status Dates Dr. Prema Archer DO Primary Care Provider Active Start: January 17, 2025 End: January 17, 2025 Dr. Elías Hernández DO Attending Provider Active Start : January 17, 2025 End: January 17, 2025 Dr. Elías Hernández DO Emergency Provider Active Start : January 17, 2025 End: January 17, 2025 Team Status: Inactive Member Role/Relationship Status Dates Dr. Prema Archer DO Primary Care Provider Active Start: February 07, 2025 End: February 07, 2025 Dr. Aramis Serna DO Emergency Provider Active Start: February 07, 2025 End: February 07, 2025 County Manager Relationship Specialty Start Date End Date Prema Archer DO [address] [place] [address] PCP - General Family Medicine 08/28/24 County Manager Relationship Specialty Start Date End Date Prema Archer DO [address] [place] [id number] PCP - General Family Medicine 08/28/24 County Manager Relationship Specialty Start Date End Date Prema Archer DO [address] [place], [place] [id number] PCP - General Family Medicine 08/28/24 County Manager Relationship Specialty Start Date End Date May Haines DO PCP - General Internal Medicine 05/05/23 County Manager Relationship Specialty Start Date End Date May Haines DO PCP - General Internal Medicine 05/05/23 Inactive Administered Medications - up to 3 most recent administrations Administered Medications (un recognized section and content) Medication Order MAR Action Action Date Dose Rate Site cyclopentolate 1 % 1 Drop (CYCLOGYL) 1 Drop, BOTH EYES, DIRECTED, Starting on Tue10/27/23 at 1100, Until Tue10/27/23 at 2259, Administer for dilation Given 10/27/2023 11:00 AM EDT 1 Drop Scheduled Active and Recently Administ ered Medications (unrecognized section and content) Medication Order 06/18/2024 06/19/2024 06/20/2024 diatrizoate oriana-diatrizoat sod (Gastrografin 37% organic bound iodine) solution 30 mL (COMPLETED) 30 mL, g-tube, Once, On Tue06/19/24 at 2215, For 1 dose 2222 (Given - Provider: Merlin Ortega, RN) Scheduled Medication Order 06/25/2024 06/26/2024 06/27/2024 divalproex (DEPAKOTE SPRINKLE) delayed release (DR) capsule 250 mg 250 mg, Tube, Every morning, First dose on Tue06/27/24 at 0900, CATEGORY D HAZARDOUS DRUG use safe handling precautions. Use reference link to view PPE guidelines. DO NOT CRUSH OR CHEW. 916 (Given - Provider: Lilian Maciel RN) divalproex (DEPAKOTE SPRINKLE) delayed release (DR) capsule 500 mg 500 mg, Tube, At bedtime, First dose on Tue06/26/24 at 2100, CATEGORY D HAZARDOUS DRUG use safe handling precautions. Use reference link to view PPE guidelines. DO NOT CRUSH OR CHEW. 2019 (Given - Provider: Hailee Phipps RN) enoxaparin (LOVENOX) syringe 40 mg 40 mg, Subcutaneous, Daily, First dose on Sandrine 06/21/24 at 0930, Administer in abdomen unless otherwise directed by prescriber. Notify physician if patient refuses., Prophylaxis Indication: VTE Prophylaxis 0857 (Given - Provider: Halley Cerda RN) 0915 (Given - Provider: Halley Cerda, JOSE DANIEL) 0917 (Given - Provider: Lilain Maciel RN) fluconazole (DIFLUCAN) IVPB 400 mg in NaCl (premix) 400 mg, Intravenous, at 100 mL/hr, Every 24 hours, First dose on Tue06/20/24 at 1700, CATEGORY B HAZARDOUS DRUG use safe handling precautions. Use reference link to view PPE guidelines., Indication: Intraabdominal Infection 1748 (New Bag - Provider: Halley Cerda RN)174 (Paused - Provider: Halley Cerda, RN)174 (Restarted - Provider: Halley Cerda, RN)1750 (Paused - Provider: Halley Cerda, RN)1750 (Restarted - Provider: Halley Cerda RN)1750 (Paused - Provider: Halley Cerda RN)175 (Restarted - Provider: Halley Cerda RN)175 (Paused - Provider: Halley Cerda RN)175 (Restarted - Provider: Halley Cerda RN)184 (Paused - Provider: Halley Cerda RN)184 (Restarted - Provider: Halley Cerda, JOSE DANIEL)194 (Rate/Dose Verify - Provider: Halley Cerda RN)1952 (Stopped - Provider: Halley Cerda RN) 172 (New Bag - Provider: Halley Cerda RN)1812 (Rate/Dose Verify - Provider: Halley Cerda RN)1920 (Stopped - Provider: Hailee Phipps RN) haloperidol lactate (HALDOL) injection 0.5 mg (CANCELED) 0.5 mg, Intravenous, Nightly, First dose on Tue06/20/24 at 2100, May cause QT interval prolongation. 2053 (Given - Provider: Frida Kevin RN) mirtazapine (REMERON) tablet 15 mg 15 mg, Tube, Nightly, First dose on Tue06/26/24 at 2100 2018 (Given - Provider: Hailee Phipps RN) pantoprazole (PROTONIX) Vial 40 mg 40 mg, Intravenous, Every 12 hours scheduled, First dose on Tue06/20/24 at 1130, Dilute each vial with 10 mL of 0.9% NaCl. 0857 (Given - Provider: Halley Cerda RN)2055 (Given - Provider: Frida Kevin RN) 0914 (Given - Provider: Halley Cerda RN)2018 (Given - Provider: Hailee Phipps RN) 0917 (Given - Provider: Lilian Maciel RN) piperacillin-tazobactam (ZOSYN) IVPB 3.375 g (premix) 3.375 g, Intravenous, at 12.5 mL/hr, Every 8 hours, First dose on Tue06/20/24 at 1400, (Maintenance doses to begin 3 hours after the completion of the loading dose administration.) VESICANT, Indication: Sepsis of Unknown Origin 0018 (New Bag - Provider: Frida J Herberth, RN)0200 (Paused - Provider: Halley Cerda, RN)0206 (Restarted - Provider: Halley Cerda, RN)0241 (Paused - Provider: Halley Cerda, RN)0243 (Restarted - Provider: Halley Cerda, RN)0427 (Stopped - Provider: Halley Cerda, RN)0857 (New Bag - Provider: Halley Cerda, RN)0908 (Paused - Provider: Halley Cerda, RN)0953 (Restarted - Provider: Halley Cerda, RN)1300 (Paused - Provider: Halley Cerda, RN)1304 (Restarted - Provider: Halley Cerda, RN)1345 (Stopped - Provider: Halley Cerda, RN)1723 (New Bag - Provider: Halley Cerda, RN)1725 (Paused - Provider: Halley Cerda, RN)1729 (Restarted - Provider: Halley Cerda, RN)1842 (Paused - Provider: Halley Cerda, RN)1844 (Restarted - Provider: Halley Cerda, RN)1943 (Rate/Dose Verify - Provider: Halley Cerda RN)2130 (Stopped - Provider: Halley Cerda, RN) 0024 (New Bag - Provider: Frida Kevin RN)0040 (Paused - Provider: Halley Cerda, RN)0044 (Restarted - Provider: Halley Cerda RN)0110 (Paused - Provider: Halley Cerda, RN)0113 (Restarted - Provider: Halley Cerda, RN)0432 (Stopped - Provider: Halley Cerda, RN)0923 (New Bag - Provider: Halley Cerda, RN)1000 (Rate/Dose Verify - Provider: Halley Cerda RN)1323 (Stopped - Provider: Halley Cerda, RN)1714 (New Bag - Provider: Halley Cerda, RN)1721 (Paused - Provider: Halley Cerda, RN)1722 (Restarted - Provider: Halley Cerda, RN)1813 (Rate/Dose Verify - Provider: Halley Cerda RN)2114 (Stopped - Provider: Hailee Phipps RN) 0017 (New Bag - Provider: Hailee Phipps RN)030 (Paused - Provider: Hailee Phipps RN)031 (Restarted - Provider: Hailee Phipps RN)042 (Stopped - Provider: Hailee Phipps, JOSE DANIEL)0917 (New Bag - Provider: Lilian Maciel RN) potassium chloride 20 mEq in 100 mL IVPB (COMPLETED) 20 mEq, Intravenous, at 50 mL/hr, Once, On Tue06/27/24 at 0845, For 1 dose, 20mEq IVPB via CENTRAL LINE over 120 minutes x 1 for serum Potassium in range of 3.5-4 mEq/L per Intermediate Care Electrolyte Replacement Therapy. (INTERMEDIATE CARE) VESICANT 0925 (New Bag - Provider: Lilian Maciel RN) risperiDONE (RISPERDAL) tablet 2 mg 2 mg, Tube, Nightly, First dose on Tue06/26/24 at 2100, May cause QT interval prolongation. 2019 (Given - Provider: Hailee Phipps RN) sodium chloride (PF) (NS) flush 10 mL 10 mL, Intracatheter, Every 8 hours scheduled, First dose on Tue06/20/24 at 1615, Flush PICC lumens when not in use. 0507 (Given - Provider: Myah Odom RN)1400 (Given - Provider: Halley Cerda RN)2207 (Given - Provider: Frida Kevin RN) 0513 (Given - Provider: Frida Kvein RN)1544 (Given - Provider: Halley Cerda RN)202 (Given - Provider: Hailee Phipps, JOSE DANIEL)2200 (Canceled Entry - Provider: Hailee Phipps RN) 0528 (Given - Provider: Hailee Phipps RN)1400 (Canceled Entry - Provider: Lilian Maciel RN) sodium chloride (PF) (NS) flush 5 mL(Linked Group 1) 5 mL, Intravenous, Every 8 hours scheduled, First dose on Tue06/20/24 at 1400, Saline lock 0507 (Given - Provider: Myah Odom RN)1400 (Not Given - Provider: Halley Cerda RN - Reason: Other - Comment: flushed 10 mL)2207 (Given - Provider: Frida Kevin, RN) 0514 (Given - Provider: Frida Kevin RN)1400 (Not Given - Provider: Halley Cerda RN - Reason: Loss of IV access - Comment: NO IV access)2200 (Canceled Entry - Provider: Hailee Phipps RN - Comment: given early) 0528 (Given - Provider: Hailee Phipps, JOSE DANIEL)1400 (Canceled Entry - Provider: Lilian Maciel RN) valproate (DEPACON) 190 mg in sodium chloride 0.9 % (NS) 50 mL IVPB (CANCELED) 190 mg, Intravenous, at 50 mL/hr, Every 6 hours, First dose on Tue06/20/24 at 1600, CATEGORY B HAZARDOUS DRUG use safe handling precautions. Use reference link to view PPE guidelines. EMERGENCY HAZ DRUG use professional judgement when deviating from standard handling precautions. 0010 (Paused - Provider: Halley Cerda RN)0013 (Restarted - Provider: Halley Cerda RN)0015 (Rate/Dose Verify - Provider: Halley Cerda RN)0015 (Stopped - Provider: Halley Cerda, RN)0508 (New Bag - Provider: Myah Odom RN)0528 (Paused - Provider: Hallye Cerda RN)0530 (Restarted - Provider: Halley Cerda, JOSE DANIEL)0610 (Stopped - Provider: Halley Cerda, RN)1252 (New Bag - Provider: Halley Cerda RN)1300 (Paused - Provider: Halley Cerda RN)1303 (Restarted - Provider: Halley Cerda, RN)1356 (Stopped - Provider: Halley Cerda, RN)1733 (New Bag - Provider: Halley Cerda RN)1833 (Stopped - Provider: Halley Cerda RN) 0014 (New Bag - Provider: Frida Kevin RN)0025 (Paused - Provider: Halley Cerda RN)0026 (Restarted - Provider: Halley Cerda RN)0026 (Paused - Provider: Halley Amert, RN)0026 (Restarted - Provider: Halley Cerda RN)0027 (Paused - Provider: Halley Cerda, RN)0027 (Restarted - Provider: Halley Cerda, RN)0040 (Paused - Provider: Halley Cerda, RN)0043 (Restarted - Provider: Halley Cerda, RN)0120 (Stopped - Provider: Halley Cerda, RN)0513 (New Bag - Provider: Frida Kevin RN)0613 (Stopped - Provider: Halley Cerda, RN)1301 (New Bag - Provider: Halley Cerda, RN) Continuous Medication Order 06/25/2024 06/26/2024 06/27/2024 Adult TPN () Intravenous, at 60 mL/hr, Continuous TPN, Starting on 06/24/24 at 2200, For 24 hours, Infuse via Central Line ONLY!! Parenteral Nutrition MUST be administered through a dedicated infusion port and filtered with a 1.2 micron in-line filter at all times. Discard any unused volume after 24 hours. Infuse with 1.2 Micron Filter 0010 (Paused - Provider: Halley Cerda RN)0013 (Restarted - Provider: Halley Cerda RN)0159 (Paused - Provider: Halley Cerda RN)0206 (Restarted - Provider: Halley Cerda, JOSE DANIEL)0415 (Paused - Provider: Halley Cerda, JOSE DANIEL)0415 (Restarted - Provider: Halley Cerda RN)0528 (Paused - Provider: Halley Cerda RN)0530 (Restarted - Provider: Halley Cerda, RN)0908 (Paused - Provider: Halley Cerda, RN)0953 (Restarted - Provider: Halley Cerda, RN)1132 (Paused - Provider: Halley Cerda, RN)1143 (Restarted - Provider: Halley Cerda, RN)1143 (Paused - Provider: Halley Cerda, RN)1145 (Restarted - Provider: Halley Cerda, RN)1219 (Paused - Provider: Halley Cerda, RN)1223 (Restarted - Provider: Halley Cerda RN)1253 (Rate/Dose Change - Provider: Halley Cerda RN)1253 (Rate/Dose Verify - Provider: Halley Cerda, RN)1300 (Paused - Provider: Halley Cerda RN)1304 (Restarted - Provider: Halley Cerda RN)1305 (Paused - Provider: Halley Cerda, RN)1347 (Restarted - Provider: Halley Cerda RN)1352 (Paused - Provider: Halley Cerda, RN)1357 (Restarted - Provider: Halley Cerda, RN)1634 (Paused - Provider: Halley Cerda RN)1634 (Restarted - Provider: Halley Cerda RN)1636 (Paused - Provider: Halley Cerda RN)1636 (Restarted - Provider: Halley Cerda RN)1636 (Paused - Provider: Halley Cerda RN)1637 (Restarted - Provider: Halley Cerda RN)1648 (Paused - Provider: Halley Cerda, RN)1652 (Restarted - Provider: Halley Cerda RN)1656 (Paused - Provider: Halley Cerda, RN)1702 (Restarted - Provider: Halley Cerda, JOSE DANIEL)1704 (Paused - Provider: Halley Cerda, RN)1712 (Restarted - Provider: Halley Cerda RN)1807 (Paused - Provider: Halley Cerda RN)1809 (Restarted - Provider: Halley Cerda RN)1811 (Paused - Provider: Halley Cerda, RN)1823 (Restarted - Provider: Halley Cerda, RN)1842 (Paused - Provider: Halley Cerda, RN)1844 (Restarted - Provider: Halley Cerda, JOSE DANIEL)1902 (Paused - Provider: Halley Cerda, RN)1925 (Restarted - Provider: Halley Cerda RN)1929 (Paused - Provider: Halley Cerda, RN)1931 (Restarted - Provider: Halley Cerda RN)194 (Rate/Dose Verify - Provider: Halley Cerda RN)221 (Paused - Provider: Halley Cerda RN)221 (Paused - Provider: Halley Cerda RN)221 (Paused - Provider: Halley Cerda, JOSE DANIEL)221 (Paused - Provider: Halley Cerda, RN)221 (Restarted - Provider: Halley Cerda RN)221 (Stopped - Provider: Halley Cerda RN) Adult TPN () Intravenous, at 50 mL/hr, Continuous TPN, Starting on Tue06/25/24 at 2200, For 24 hours, Infuse via Central Line ONLY!! Parenteral Nutrition MUST be administered through a dedicated infusion port and filtered with a 1.2 micron in-line filter at all times. Discard any unused volume after 24 hours. Infuse with 1.2 Micron Filter 2218 (New Bag - Provider: Frida Kevin RN) 0038 (Paused - Provider: Halley Cerda RN)0039 (Restarted - Provider: Halley Cerda RN)0040 (Paused - Provider: Halley Cerda RN)0044 (Restarted - Provider: Halley Cerda RN)0153 (Paused - Provider: Halley Cerda RN)0213 (Restarted - Provider: Halley Cerda RN)0236 (Paused - Provider: Halley Cerda RN)0237 (Restarted - Provider: Halley Cerda RN)0237 (Paused - Provider: Halley Cerda RN)0238 (Paused - Provider: Halley Cerda, RN)0238 (Restarted - Provider: Halley Cerda, JOSE DANIEL)0238 (Paused - Provider: Halley Cerda, JOSE DANIEL)0240 (Restarted - Provider: Halley Cerda, JOSE DANIEL)0504 (Paused - Provider: Halley Cerda, JOSE DANIEL)0507 (Restarted - Provider: Halley Cerda, JOSE DANIEL)1000 (Rate/Dose Verify - Provider: Halley Cerda RN)1155 (Paused - Provider: Halley Cerda RN)1205 (Paused - Provider: Halley Cerda, RN)1205 (Restarted - Provider: Halley Cerda RN)1208 (Paused - Provider: Halley Cerda RN)1228 (Restarted - Provider: Halley Cerda, RN)1228 (Paused - Provider: Halley Cerda, RN)1235 (Restarted - Provider: Halley Cerda, RN)1408 (Paused - Provider: Halley Cerda, RN)1411 (Restarted - Provider: Halley Cerda, RN)1621 (Rate/Dose Verify - Provider: Halley Cerda RN)1813 (Rate/Dose Verify - Provider: Halley Cerda RN)1840 (Paused - Provider: Hailee Phipps, JOSE DANIEL)1920 (Restarted - Provider: Hailee Phipps, JOSE DANIEL)2240 (Stopped - Provider: Hailee Phipps RN) PRN Medication Order 06/25/2024 06/26/2024 06/27/2024 acetaminophen (TYLENOL) suppository 650 mg 650 mg, Rectal, Every 4 hours PRN, mild pain, fever 100.4 F or greater, headaches, Starting on Sandrine 06/21/24 at 2117, Please change to suppository alteplase (CATH PARKER) injection 2 mg 2 mg, Other, As needed, occluded PICC, Starting on Tue06/20/24 at 1518, Use for occlusion or absence of blood return, unless allergy or infected line. Assess catheter function 30 minutes after instillation. Repeat 2 mg x 1 dose if no blood return obtained after 120 minutes of dwell time. If medication has not yet been reconstituted RECONSTITUTE ALTEPLASE (CATHFLO) INJ WITH 2.2 ML OF STERILE WATER FOR INJ FOR CATHETER CLEARANCE ONLY aluminum-magnesium hydroxide-simethicone (MAALOX PLUS) 200-200-20 mg/5 mL suspension 30 mL 30 mL, Oral, Every 4 hours PRN, indigestion, Starting on Tue06/20/24 at 1021 bisacodyL (DULCOLAX) suppository 10 mg 10 mg, Rectal, Daily PRN, constipation, Starting on Tue06/20/24 at 1021, Try oral medications first for constipation. Try rectal medication if oral meds are ineffective, not tolerated, or not ordered. haloperidol lactate (HALDOL) injection 0.5 mg 0.5 mg, Intravenous, Every 12 hours PRN, agitation, Starting on Tue06/22/24 at 0638, May cause QT interval prolongation. 0236 (Given - Provider: Frida Kevin RN) iopamidol (ISOVUE-300) 61 % for ORAL use 150 mL (COMPLETED) 150 mL, Tube, Once in imaging, contrast, Starting on Tue06/25/24 at 0951, For 1 dose 0954 (Contrast Administered - Provider: Ines Burrell, TECHNOLOGIST) lidocaine 1% (PF) (XYLOCAINE-MPF) 10 mg/mL (1 %) injection 1 mL 1 mL, Intradermal, Once as needed, For PICC placement, if patient has no known Lidocaine allergy., Starting on Tue06/20/24 at 1518, For 1 dose magnesium hydroxide (MOM) 400 mg/5 mL suspension 2,400 mg 2,400 mg (30 mL), Oral, Daily PRN, constipation, Starting on Tue06/20/24 at 1021, If no bowel movement in 24 hours after Sennosides (SENNA) administration. melatonin Tab 5 mg 5 mg, Oral, Nightly PRN, Sleep, Starting on Tue06/20/24 at 1021, If still awake in 1 hour proceed to trazodone (Desyrel) morphine injection 2 mg 2 mg, Intravenous, Every 4 hours PRN, moderate to severe pain, Starting on Tue06/21/24 at 0614 naloxone (NARCAN) injection 0.1 mg(Linked Group 2) 0.1 mg, Intravenous, As needed, opioid reversal, For respiratory rate less than or equal to 8 per minute., Starting on Tue06/21/24 at 0434, Mix nalOXone (NARCAN) 0.4 mg (1mL) with 9 mL of Normal Saline to total 10 mL. Administer 0.1 mg (2.5mL) IV Push every 2 minutes until respiratory rate is 10 or greater. naloxone (NARCAN) injection 0.4 mg(Linked Group 2) 0.4 mg, Intravenous, As needed, opioid reversal, patient is pulseless, breathless, and unresponsive, Starting on Sandrine 06/21/24 at 0434, Call a code first, then administer naloxone dose undiluted IV Push over 30 seconds. ondansetron (ZOFRAN) injection 4 mg(Linked Group 3) 4 mg, Intravenous, Every 6 hours PRN, nausea, vomiting, Starting on Tue06/20/24 at 1021, Use oral route first, if tolerated. ondansetron (ZOFRAN-ODT) disintegrating tablet 4 mg(Linked Group 3) 4 mg, Oral, Every 6 hours PRN, nausea, vomiting, Starting on Tue06/20/24 at 1021, Use oral route first, if tolerated. Formulation requires tablet remain in sealed package until immediately prior to dose being administered. senna (SENOKOT) tablet 8.6 mg 8.6 mg (1 tablet), Oral, 2 times daily PRN, constipation, Starting on Tue06/20/24 at 1021 sodium chloride (PF) (NS) flush 10-20 mL 10-20 mL, Intracatheter, As needed, line care, Flush PICC with 10ml before and after each use, and with 20ml after blood draws, transfusions, and TPN., Starting on Tue06/20/24 at 1518 sodium chloride (PF) (NS) flush 5 mL(Linked Group 1) 5 mL, Intravenous, As needed, line care, Starting on Tue06/20/24 at 1018 sodium chloride 0.9% (NS)(Linked Group 1) 0-150 mL/hr, Intravenous, As needed, To flush line after IV infusions when no maintenance IV ordered or a compatibility issue. Infuse 20ml at the same rate as the secondary infusion, Starting on Tue06/20/24 at 1018, Run as Primary IV. NOT intended for KVO. 1741 (New Bag - Provider: Halley Cerda, JOSE DANIEL - Comment: ran with [employer] med)1942 (Rate/Dose Verify - Provider: Halley Cerda RN) traZODone (DESYREL) tablet 50 mg 50 mg, Oral, Nightly PRN, sleep, Starting on Tue06/20/24 at 1021, To be administered 1 hour after melatonin if still awake. May repeat x 1 dose in 30 minutes if still awake. 2023 (Given - Provider: Hailee S Pihpps, RN) Linked Groups Order Group 1: Saline lock IV (CANCELED) Routine, Continuous, Starting on Tue06/20/24 at 1019, Until Specified And sodium chloride (PF) (NS) flush 5 mLJump to med 5 mL, Intravenous, As needed, line care, Starting on Tue06/20/24 at 1018 And sodium chloride (PF) (NS) flush 5 mLJump to med 5 mL, Intravenous, Every 8 hours scheduled, First dose on Tue06/20/24 at 1400, Saline lock And sodium chloride 0.9% (NS)Jump to med 0-150 mL/hr, Intravenous, As needed, To flush line after IV infusions when no maintenance IV ordered or a compatibility issue. Infuse 20ml at the same rate as the secondary infusion, Starting on Tue06/20/24 at 1018, Run as Primary IV. NOT intended for KVO. Group 2: naloxone (NARCAN) injection 0.1 mgJump to med 0.1 mg, Intravenous, As needed, opioid reversal, For respiratory rate less than or equal to 8 per minute., Starting on Sandrine 06/21/24 at 0434, Mix nalOXone (NARCAN) 0.4 mg (1mL) with 9 mL of Normal Saline to total 10 mL. Administer 0.1 mg (2.5mL) IV Push every 2 minutes until respiratory rate is 10 or greater. And Notify physician (CANCELED) STAT, Until discontinued, Starting on Sandrine 06/21/24 at 0435, Until Specified, Respiratory rate less than: 8, For respiratory rate less than or equal to 8, notify physician and/or appropriate staff for additional orders. And naloxone (NARCAN) injection 0.4 mgJump to med 0.4 mg, Intravenous, As needed, opioid reversal, patient is pulseless, breathless, and unresponsive, Starting on Sandrine 06/21/24 at 0434, Call a code first, then administer naloxone dose undiluted IV Push over 30 seconds. Group 3: ondansetron (ZOFRAN-ODT) disintegrating tablet 4 mgJump to med 4 mg, Oral, Every 6 hours PRN, nausea, vomiting, Starting on Tue06/20/24 at 1021, Use oral route first, if tolerated. Formulation requires tablet remain in sealed package until immediately prior to dose being administered. Or ondansetron (ZOFRAN) injection 4 mgJump to med 4 mg, Intravenous, Every 6 hours PRN, nausea, vomiting, Starting on Tue06/20/24 at 1021, Use oral route first, if tolerated. Goals (unrecognized section and content) Goals may be documented in a n alternate sectionGoals may be documented in an alternate section FOR RECORDS PERTAINING TO PATIENTS WHO ARE OR HAVE BEEN ENROLLED IN A CHEMICAL DEPENDENCY/SUBSTANCEABUSE PROGRAM, SOME INFORMATION MAY BE OMITTED. This clinical summary was aggregated from multiple sources. Caution should be exercised in using it in the provision of clinical care. This summary normalizes information from multiple sources, and as a consequence, information in this document may materially change the coding, format and clinical context of patient data. In addition, data may be omitted in some cases. CLINICAL DECISIONS SHOULD BE BASED ON THE PRIMARY CLINICAL RECORDS. [employer] provides no warranty or guarantee of the accuracy or completeness of information in this document.
[2025-06-08 22:46] LABS: Hematocrit 40.5 % (40-54); Hemoglobin 13.7 g/dL (13.0-16.5); Immature Granulocytes Count 0.010 X10^3/uL (0.0-0.0); Mean Corp Hgb Conc 33.8 g/dL (32-36); Mean Corpuscular Volume 94.4 fL (80-94); Mean Platelet Vol. 12.6 fl (6.2-12.0); NRBC Flagged by Analyzer 0 % (0-5); Platelet Count 109 K/mm3 (150-450); RBC Distribution Width CV 12.5 % (11.6-14.6); RBC Distribution Width SD 43.1 fl (35.1-43.9); Red Blood Count 4.29 M/mm3 (4.6-6.2); White Blood Count 5.1 K/mm3 (4.4-11.0)
--- NOTE | 2025-06-08 22:47 | ED.RN ---
message left for permission to treat from guardian.
[2025-06-08 23:03] LABS: Anion Gap 9 (5-15); BUN 21 mg/dL (4-19); BUN/Creat Ratio 39.4 RATIO (10-20); Calcium,Total 8.9 mg/dL (7.6-11.0); Carbon Dioxide 26.7 mmol/L (21.0-32.0); Chloride 105 mmol/L (98-108); Estimated Creatinine Clearance 110.60 ml/min (50-250); Glucose 84 mg/dL (70-99); Potassium 4.3 mmol/L (3.3-5.1)
[2025-06-08 23:40] VITALS: BP 101/60; PULSE 76; RESP 13; TEMP 36.7; O2SAT 95
== END 2025-06-08 23:41 | disposition home or self-care (01) ==
PROVIDERS: Emergency Provider Student in an Organized Health Care Education/Training Program; PCP Family Medicine; Visit Provider Student in an Organized Health Care Education/Training Program
DX: R06.02 Shortness of breath (principal); Z93.1 Gastrostomy status; G80.9 Cerebral palsy, unspecified
CPT/HCPCS: 71045; 80048; 85025; 87631; 93005; 99285; A4216